=== PATIENT | male | born 1950 | race Caucasian/White ===

== ENCOUNTER → 2016-10-22 | Outpatient (CLI) | payer BC, OTHER ==
[2016-10-22 18:29] LABS: Anisocytosis Moderate; CH 27.1; CHCM 29.9; HCT 40.6 % (39.0-53.0); HDW 2.91; HGB 12.2 gm/dL (13.0-17.5); Hypochromasia Marked; MCH 27.5 pg (25.0-35.0); MCHC 30.1 g/dL (31.0-37.0); Mean Platelet Volume 7.3; Microcytosis Slight; RBC 4.46 m/uL (4.30-5.90); RDW 22.4 % (11.5-15.5); WBC 6.5 k/uL (3.8-10.6)
[2016-10-22 18:40] LABS: MCV 91.2 fL (80.0-100.0)
[2016-10-22 18:48] LABS: Anion Gap 9 mmol/L; Blood Urea Nitrogen 14 mg/dL (9-20); Calcium 9.1 mg/dL (8.4-10.2); Carbon Dioxide 24 mmol/L (22-30); Chloride 107 mmol/L (98-107); Glucose 97 mg/dL (74-99); Non-African American GFR(MDRD) >60 (>60 ml/min/1.73 sqM); Potassium 4.3 mmol/L (3.5-5.1); Sodium 140 mmol/L (137-145)
== END | disposition home or self-care (01) ==
LOC: LABWHC1 17:11
PROVIDERS: ATTEND Internal Medicine Interventional Cardiology
DX: I25.10 Atherosclerotic heart disease of native coronary artery without angina pectoris (principal); D64.9 Anemia, unspecified
CPT/HCPCS: 36415; 80048; 85027

== ENCOUNTER 2016-11-04 06:27 | Day surgery (SDC) | payer BC, OTHER ==
[2016-10-30 16:04] VITALS: BMI 27.9
[2016-11-04] MEDS ORDERED: NITROGLYCERIN SL TABS 0.4 MG TAB SUBLINGUAL PRN ×2 (06:47→14:56)
[2016-11-04] MEDS ORDERED: ALPRAZolam 0.25 MG TAB PO PRN (06:47)
[2016-11-04] MEDS ORDERED: ATORVASTATIN 80 MG TAB PO STA (06:47)
[2016-11-04] MEDS ORDERED: ASPIRIN 325 MG TAB PO STA (06:47)
[2016-11-04] MEDS ORDERED: SODIUM CHLORIDE 0.9% 1,000 ML in EMPTY BAG 1 BAG IV ONE (06:47)
[2016-11-04] MEDS ORDERED: ALPRAZolam 0.5 MG TAB PO PRN (06:47)
[2016-11-04] MEDS ORDERED: SODIUM CHLORIDE 0.9% (PF) 10 ML VIAL ONE (07:08)
[2016-11-04] MEDS ORDERED: LIDOCAINE 2% INJ 20 MG/ML (20 ML MDV) ONE (07:08)
[2016-11-04] MEDS ORDERED: VERAPAMIL 2.5 MG/ML 2 ML AMP ONE ×2 (07:08)
[2016-11-04] MEDS ORDERED: MIDAZOLAM 2 MG/2 ML VIAL ONE (07:29)
[2016-11-04] MEDS ORDERED: diphenhydrAMINE 50 MG/ML 1 ML VIAL ONE (07:29)
[2016-11-04] MEDS ORDERED: diphenhydrAMINE 50 MG/ML 1 ML VIAL IVP ONE (07:36)
[2016-11-04] MEDS ORDERED: MIDAZOLAM 2 MG/2 ML VIAL IVP ONE (07:36)
[2016-11-04] MEDS ORDERED: LIDOCAINE 2% INJ 20 MG/ML SQ ONE ×2 (07:39→13:00)
[2016-11-04] MEDS: VERAPAMIL SYRINGE (5 MG/10 ML) INTRAARTER ONE ×2 (07:43→08:29)
[2016-11-04] MEDS ORDERED: ATROPINE SULFATE 0.1 MG/ML 10ML SYRINGE IVP ONE (08:11)
[2016-11-04] MEDS ORDERED: IOHEXOL 350 MG/ML 100 ML BOTTLE INJ ONE (08:29)
[2016-11-04] MEDS ORDERED: SODIUM CHLORIDE 0.9% 500 ML IV ONE (08:30)
[2016-11-04] MEDS ORDERED: fentaNYL (PF) 50 MCG/ML 2 ML AMP ONE (09:35)
[2016-11-04] MEDS ORDERED: ceFAZolin 2 GM in SODIUM CHLORIDE 0.9% 100 ML IVPB STA (12:37)
[2016-11-04] MEDS ORDERED: ceFAZolin 1,000 MG in SODIUM CHLORIDE 0.9% IRRIGATIO 250 ML IRRIGATION ONE (12:37)
[2016-11-04] MEDS ORDERED: IV FLUID CONTINUATION 700 ML IV ONE (12:56)
[2016-11-04] MEDS: MIDAZOLAM 2 MG/2 ML VIAL IVP ONE ×2 (12:56→13:00)
[2016-11-04] MEDS ORDERED: IV FLUID CONTINUATION 250 ML IV ONE (12:56)
[2016-11-04] MEDS: fentaNYL (PF) 50 MCG/ML 2 ML AMP IV ONE ×2 (13:00→13:33)
[2016-11-04] MEDS: LIDOCAINE 2% INJ 20 MG/ML SQ ONE ×2 (13:05→13:32)
[2016-11-04] MEDS ORDERED: DOPamine DRIP 800 MG in DEXTROSE/WATER 1 500ML.BAG IV ONE (13:25)
[2016-11-04] MEDS ORDERED: ALBUTEROL NEBULIZED 2.5 MG/3 ML INHALATION PRN (14:56)
--- NOTE | 2016-11-04 15:51 | XR ---
EXAMINATION TYPE: XR chest 1V portable DATE OF EXAM: 11/04/2016 3:44 PM HISTORY: Post pacemaker insertion. REFERENCE: NONE. FINDINGS: There has been a midline sternotomy. Multiple metallic strands project over the lateral asp ect of the left chest superiorly. A bipolar pacemaker has been inserted via a left subclavian approach. The proximal lead overlies the right atrium and there is slightly overlies the right ventricle. There is no evidence of pneumothorax . The lungs appear clear. Pleural spaces are clear. Heart size is upper limits of normal. IMPRESSION: I DO NOT SEE A POSTPACEMAKER INSERTION COMPLICATION.
[2016-11-04] MEDS: FERROUS SULFATE 325 MG TAB PO SCH (17:44)
[2016-11-04] MEDS: SODIUM CHLORIDE 0.9% 1,000 ML IV SCH (17:44)
[2016-11-04] MEDS: ceFAZolin 2 GM in SODIUM CHLORIDE 0.9% 100 ML IVPB SCH (18:47)
[2016-11-04] MEDS ORDERED: NON-FORMULARY DRUG (Fish Oil/Dha/Epa [Fish Oil 1,200 Mg Fish Oil] 1 EACH) PO SCH (21:00)
[2016-11-04] MEDS ORDERED: LISINOPRIL 5 MG TAB PO SCH (21:00)
[2016-11-04] MEDS ORDERED: ATORVASTATIN 80 MG TAB PO SCH (21:00)
--- NOTE | 2016-11-04 21:14 | PCN ---
DATE OF PROCEDURE: 11/04/2016 PROCEDURE: Permanent pacemaker placement, left infraclavicular location. PERFORMED BY Dr. Frank Falk. CLINICAL INFORMATION: Mr. Jey Kingsley is a 66-year-old gentleman with a history of prior aortocoronary bypass surgery in 2004 with stenting of vein graft to the obtuse marginal on September 06 ( ). He was brought in for elective PCI of [place] circumflex, which was a heavily calcified vessel. I attempted from the right radial approach and checked the patency of the vein graft to the obtuse marginal. While the catheter was being manipulated in the ascending aorta, he developed asystole. He has underlying sick sinus syndrome on a very minimal dose of beta ronen. He has a right bundle with a first degree. He went into asystole, requiring to be paced externally, and also required a temporary pacemaker. This was placed in the right femoral approach. I abandoned the coronary intervention procedure, took the radial sheath out and applied a TR band with good hemostasis. Then he was brought in for a permanent pacemaker procedure a few hours later. PROCEDURE NOTE: Under local anesthesia and strict aseptic precautions, a 3-inch incision was made parallel and medial to the left deltopectoral grove. I attempted to gain access into the axillary artery, but I had difficulty. I requested Dr. Joaquin, who gained axis into the left axillary vein. A guidewire was kept in the right atrial location. A sheath was placed over this guidewire. I then advanced another guidewire next to the current one and took the sheath out and 2 separate sheaths were then advanced and positioned. A surgical pocket was made with blunt dissection and good hemostasis was secured. The pocket was soaked with antibiotic sponge. Patient also received IV antibiotic. Under fluoroscopic guidance I placed the ventricular lead at the right ventricular apical septal portion. Good thresholds and sensitivities were obtained. The atrial lead was then placed in the right atrium. Good thresholds and sensitivities were obtained. Both the leads were separately secured with 0 silk. Leads were then connected to the pulse generator and pulse generator was also secured. The wound was then closed in 2 layers. Excellent hemostasis was achieved. Patient tolerated the procedure well without complication. He will have a chest x-ray, then go to the room, and repeat chest x-ray in the morning will be performed. The details of the procedure and the results were discussed with the patient and family. PACEMAKER INFORMATION: Stenographer Secretary [employer] model Essentio DRIS 1, model L101, serial #[id number]. Right ventricular lead real estate valuer [employer] model Ingevity MRIIS 1 bipolar active lead 59 cm length, model #7742, serial #[id number], right ventricular septal location. Atrial lead real estate valuer [employer] model Ingevity MRI IS 1 bipolar active lead, 52 cm long, model #7741, serial #[id number], location in the right atrium. Right atrial threshold was 0.6 v and P-waves were 3.0 mV. Right ventricular threshold was 0.5 v at 0.5 ms and R-waves were 25 mV. The impedance in the right atrial lead was 745 ohms. The right ventricular lead impedance was 1340 ohms. The pacemaker settings were at a low rate of 55 and a high rate of 110 in a DDDR mode. Patient tolerated the procedure well without complications. He will have a chest x-ray prior to going to the room.
--- NOTE | 2016-11-04 21:17 | LTR ---
November 04, 2016 RE: Sancho Jey Eric Dear Dr. Bob, Thank you for the opportunity to participate in the care of Mr. Jey Kingsley. This gentleman underwent a cardiac catheterization this morning to check patency of the vein graft to the obtuse marginal. Subsequently, prior to intervention of the [place] circumflex, he developed asystole because of significant sick sinus syndrome and a conduction system disease in the AV node. He had a temporary pacemaker placed emergently. A couple of hours later I performed placement of a permanent pacemaker uneventfully. The radial catheter site is clean and dry. I will do the intervention at a later date. He was sent to the room in stable condition. Results were discussed with the patient and family. I expect he will be discharged tomorrow if he remains stable. Thank you for your referral. Please call with questions. Sincerely, JOYCE WHYTE MD
[2016-11-04] MEDS: METOPROLOL TARTRATE 12.5 MG TAB PO SCH (21:50)
[2016-11-04] MEDS: buPROPion SR 150 MG TABLET.ER PO SCH (21:50)
[2016-11-04] MEDS: GABAPENTIN 300 MG CAP PO SCH (21:50)
[2016-11-04] MEDS: ACETAMINOPHEN TAB 325 MG TAB PO PRN (23:39)
[2016-11-05] MEDS: ceFAZolin 2 GM in SODIUM CHLORIDE 0.9% 100 ML IVPB SCH ×3 (01:25→13:05)
[2016-11-05] MEDS: ACETAMINOPHEN TAB 325 MG TAB PO PRN (05:21)
[2016-11-05] MEDS: SODIUM CHLORIDE 0.9% 1,000 ML IV SCH (05:22)
--- NOTE | 2016-11-05 07:03 | CE ---
DATE OF SERVICE: 11/04/2016 PROCEDURE: 1. Transvenous temporary pacemaker from right femoral approach. 2. Coronary angiography. PERFORMED BY: Dr. Frank Falk. CLINICAL INFORMATION: Mr. Jey Kingsley is a of 66 years of age with aortocoronary bypass surgery in 2004. In August 2016, I performed stenting of the vein graft to the obtuse marginal with a good result. This was a very large graft. There was a lot of mismatch between the graft size and the [place] obtuse marginal. He was brought in for the procedure electively from right radial approach to mainly try and assess the patency of this vessel and also try and open the [place] circumflex in 2 areas which was heavily calcified vessel. PROCEDURE NOTE: Under strict aseptic precautions and local anesthesia, a 6-Liberian introduced was placed in the right radial artery. I used a right bypass guide catheter and performed selective coronary angiography of the vein graft to the circumflex marginal. This graft was widely patent. I then tried to use a standard left Lissett guide catheter and then a 4.5 L[place]ett guide catheter to cannulate the left coronary artery. While I was manipulating in the ascending aorta, the catheter went into the LV and then patient had asystole requiring to be paced with external pacer. He has a history of underlying sick sinus syndrome with tachybrady phenomenon, right bundle branch and first degree AV block. He was paced externally and I quickly in an emergent fashion from the right femoral approach placed a 6-Liberian introducer and then a 5-Liberian pacemaker was placed in the right ventricular apex with good capture. This sheath was sutured in. The radial sheath was taken out and TR band applied as per protocol. I explained to the patient that we will abandon the intervention and perform a permanent pacemaker in view of his asystole. He remained in a junctional rhythm and then went into a complete heart block and used the pacemaker for quite some time. The previously stented vein graft to the obtuse marginal was patent. I will perform intervention of his [place] circumflex at a later date. This was carefully explained to the patient and all the family members. He was sent to the extended stay unit to be brought back for a permanent pacemaker procedure after which I would take the temporary pacemaker out as well. This was explained to the patient in detail.
[2016-11-05 07:11] LABS: Anisocytosis Slight; CH 27.1; HCT 41.3 % (39.0-53.0); HDW 2.65; HGB 12.4 gm/dL (13.0-17.5); Hypochromasia Marked; MCH 27.3 pg (25.0-35.0); MCHC 30.1 g/dL (31.0-37.0); MCV 90.7 fL (80.0-100.0); Mean Platelet Volume 6.7; Microcytosis Slight; RBC 4.56 m/uL (4.30-5.90); RDW 19.7 % (11.5-15.5); WBC 8.8 k/uL (3.8-10.6)
[2016-11-05 07:29] LABS: Anion Gap 11 mmol/L; Blood Urea Nitrogen 19 mg/dL (9-20); Calcium 8.8 mg/dL (8.4-10.2); Carbon Dioxide 22 mmol/L (22-30); Chloride 107 mmol/L (98-107); Glucose 91 mg/dL (74-99); Non-African American GFR(MDRD) >60 (>60 ml/min/1.73 sqM); Potassium 4.3 mmol/L (3.5-5.1); Sodium 140 mmol/L (137-145)
[2016-11-05] MEDS: FERROUS SULFATE 325 MG TAB PO SCH (07:54)
[2016-11-05] MEDS: METOPROLOL TARTRATE 12.5 MG TAB PO SCH (08:23)
[2016-11-05] MEDS: GABAPENTIN 300 MG CAP PO SCH (08:23)
[2016-11-05] MEDS: buPROPion SR 150 MG TABLET.ER PO SCH (08:25)
[2016-11-05] MEDS ORDERED: ASPIRIN 81 MG CHEW PO SCH (09:00)
[2016-11-05] MEDS ORDERED: CLOPIDOGREL 75 MG TAB PO SCH (09:00)
[2016-11-05] MEDS ORDERED: DOCUSATE 100 MG CAP PO SCH (09:00)
[2016-11-05 09:15] VITALS: RESP 18; TEMP 97.1
--- NOTE | 2016-11-05 09:25 | XR ---
EXAMINATION TYPE: XR chest 2V DATE OF EXAM: 11/05/2016 6:33 AM COMPARISON: Chest x-ray from yesterday. HISTORY: Arrhythmia status post pacemaker evaluation TECHNIQUE: Frontal and lateral views of the chest are obtained. FINDINGS: Redemonstration of pacemaker with leads in right atrium and right ventricle confirmed on 2 views. Sternal wires and mediastinal clips are again seen. There is chronic parenchymal change withou t suspicious new focal air space opacity, pleural effusion, or pneumothorax seen bilaterally. The ca rdiac silhouette size is within normal limits. The osseous structures are intact. IMPRESSION: No evidence of complication or pneumothorax after pacemaker insertion. Dual lead pacemak er with leads projecting into right atrium and right ventricle is confirmed on two-view x-ray.
[2016-11-05 12:04] VITALS: BP 127/70; PULSE 50
[2016-11-06] MEDS ORDERED: METOPROLOL TARTRATE 12.5 MG TAB PO SCH (09:00)
--- NOTE | 2016-11-06 10:47 | DS ---
DATE OF ADMISSION: 11/04/2016 DATE OF DISCHARGE: 11/05/2016 DIAGNOSES: 1. Complete heart block. 2. Unstable angina. 3. Hypertension. 4. History of coronary artery disease with previous bypass surgery and PCI. 5. Paroxysmal atrial fibrillation. This gentleman was brought in initially for elective coronary angiography to assess patency of vein graft to the obtuse marginal and then performed stenting of [place] circumflex. I performed the procedure from the right radial approach. While we were manipulating the catheter to gain access to the left coronary artery, The catheter went into the LV and he had a complete heart block with a very long pause requiring external pacing. Promptly, transvenous temporary pacemaker was placed on the right femoral approach. Then patient stabilized very well. About a couple of hours later, I performed a permanent pacemaker from the left infraclavicular approach. Pacemaker leads had good threshold and sensing yesterday. This morning, the chest x-ray reveals that there is some movement of the atrial lead in the AP projection. However, the thresholds have slightly elevated at 1.8 to 1.9 mV at 0.5 ms. The sensing is good through the P waves of 2.5 to 3. Ventricular lead thresholds and sensitivities are excellent. Patient is predominantly atrial sense and ventricular pace on some occasions. He does have an underlying first-degree AV block and a right bundle branch block pattern. I contemplated repositioning the atrial lead but after some discussion and reviewing the chest x-ray, I felt that since he was pacing well in the atrium and he seems to have mostly AV block, we will not do an intervention now. He is also on aspirin and Plavix. The site is clean and dry with some tenderness around the site. Blood pressure today is 128/70, pulse rate is 60 per minute, intrinsic rhythm. S1, S2 heard normally. Short systolic murmur noted. Lungs are clear. Abdomen and lower extremity exam is unchanged. We will discharge the patient today. Pacemaker settings are at a low rate of 50, high rate of 110. I will see him in the office in one week. Discharge instructions regarding activity, diet and medications were given. He is advised not to do much activity with the left arm and he was given a sling. He will not do any stretching outward or reaching out with his left arm. Discharge instructions were given to the patient and . The possibility of requiring repositioning of the lead is something that may be necessary down the road was explained to both of them but for now, we will not do any intervention. He will be discharged today and I will see him in the office on 11/13/2016 at 9:15 a.m.
== END 2016-11-05 14:51 | disposition home or self-care (01) ==
LOC: CATHCVL 06:27 → 6SEL 14:46 → CATHCVL 11-05 14:51
PROVIDERS: ATTEND Internal Medicine Interventional Cardiology
DX: I44.2 Atrioventricular block, complete (principal); I49.5 Sick sinus syndrome; I25.110 Atherosclerotic heart disease of native coronary artery with unstable angina pectoris; I97.710 Intraoperative cardiac arrest during cardiac surgery; Y84.0 Cardiac catheterization as the cause of abnormal reaction of the patient, or of later complication, without mention of misadventure at the time of the procedure; Y71.3 Surgical instruments, materials and cardiovascular devices (including sutures) associated with adverse incidents; Y92.234 Operating room of hospital as the place of occurrence of the external cause; I45.10 Unspecified right bundle-branch block; I48.0 Paroxysmal atrial fibrillation; R01.1 Cardiac murmur, unspecified; Z95.5 Presence of coronary angioplasty implant and graft; Z95.1 Presence of aortocoronary bypass graft; E78.00 Pure hypercholesterolemia, unspecified; I10 Essential (primary) hypertension; E78.5 Hyperlipidemia, unspecified; Z79.01 Long term (current) use of anticoagulants; Z79.02 Long term (current) use of antithrombotics/antiplatelets; Z79.82 Long term (current) use of aspirin; Z79.899 Other long term (current) drug therapy; Z87.891 Personal history of nicotine dependence
CPT/HCPCS: 93459; 33208; 33210; 80048; 85027; 71010; 71020; C1769 ×4; C1887 ×2; C1894 ×2; C1785; C1898; J2001; J2250; J1200; Q9967; S0106 ×2; J0690 ×2; J0461; J1265; J3010

== ENCOUNTER → 2016-12-13 | Outpatient (CLI) | payer BC, OTHER ==
[2016-12-13 11:40] LABS: Basophils # (A) 0.1 k/uL (0-0.2); Basophils % (A) 1 %; CH 28.5; CHCM 30.8; Eosinophils # (A) 0.1 k/uL (0-0.7); Eosinophils % (A) 1 %; HCT 46.1 % (39.0-53.0); HDW 2.61; HGB 14.5 gm/dL (13.0-17.5); Hypochromasia Slight; Luc # (Auto) 0.27; Luc % (Auto) 3; Lymphocytes % (A) 26 %; MCH 29.1 pg (25.0-35.0); MCHC 31.4 g/dL (31.0-37.0); MCV 92.7 fL (80.0-100.0); Mean Platelet Volume 6.6; Monocytes # (A) 0.7 k/uL (0-1.0); Monocytes % (A) 9 %; Neutrophils # (A) 4.7 k/uL (1.3-7.7); Neutrophils % (A) 60 %; RBC 4.97 m/uL (4.30-5.90); RDW 15.8 % (11.5-15.5); WBC 7.8 k/uL (3.8-10.6); WBC (Perox) 8.05
[2016-12-13 11:51] LABS: Anion Gap 10 mmol/L; Blood Urea Nitrogen 11 mg/dL (9-20); Carbon Dioxide 26 mmol/L (22-30); Chloride 104 mmol/L (98-107); Non-African American GFR(MDRD) >60 (>60 ml/min/1.73 sqM); Potassium 4.5 mmol/L (3.5-5.1); Sodium 140 mmol/L (137-145)
== END | disposition home or self-care (01) ==
LOC: LABPAT 11:08
PROVIDERS: ATTEND Internal Medicine Interventional Cardiology
DX: Z01.812 Encounter for preprocedural laboratory examination (principal); I25.10 Atherosclerotic heart disease of native coronary artery without angina pectoris
CPT/HCPCS: 80051; 82565; 84520; 85025

== ENCOUNTER 2016-12-16 09:20 | Day surgery (SDC) | payer BC, OTHER ==
[~2016-12-16 09:20] MED LIST: ALPRAZolam 0.25 MG TAB PO PRN; ALPRAZolam 0.5 MG TAB PO PRN; ASPIRIN 325 MG TAB PO STA; ATORVASTATIN 80 MG TAB PO STA; NITROGLYCERIN SL TABS 0.4 MG TAB SUBLINGUAL PRN; SODIUM CHLORIDE 0.9% 1,000 ML in EMPTY BAG 1 BAG IV ONE
[2016-12-16] MEDS ORDERED: LIDOCAINE 2% INJ 20 MG/ML (20 ML MDV) ONE (10:54)
[2016-12-16] MEDS ORDERED: diphenhydrAMINE 50 MG/ML 1 ML VIAL ONE (11:05)
[2016-12-16] MEDS ORDERED: MIDAZOLAM 2 MG/2 ML VIAL ONE (11:05)
[2016-12-16] MEDS ORDERED: diphenhydrAMINE 50 MG/ML 1 ML VIAL IVP ONE (11:15)
[2016-12-16] MEDS: MIDAZOLAM 2 MG/2 ML VIAL IV ONE ×2 (11:15→11:17)
[2016-12-16] MEDS ORDERED: LIDOCAINE 2% INJ 20 MG/ML SQ ONE (11:18)
[2016-12-16] MEDS ORDERED: BIVALIRUDIN BOLUS 250 MG/50 ML IV ONE (11:33)
[2016-12-16] MEDS ORDERED: BIVALIRUDIN 250 MG in SODIUM CHLORIDE 0.9% 50 ML IV ONE (11:34)
[2016-12-16] MEDS ORDERED: CLOPIDOGREL 75 MG TAB ONE (12:13)
[2016-12-16] MEDS ORDERED: NITROGLYCERIN 1000MCG/10ML SYRINGE INTRACORON ONE (12:13)
[2016-12-16] MEDS ORDERED: CLOPIDOGREL 75 MG TAB PO ONE (12:15)
[2016-12-16] MEDS ORDERED: HYDROmorphone 2 MG/ML 1 ML SYRINGE ONE (12:20)
[2016-12-16] MEDS ORDERED: HYDROmorphone 2 MG/ML 1 ML SYRINGE IV ONE ×2 (12:21)
[2016-12-16] MEDS ORDERED: IOHEXOL 350 MG/ML 100 ML BOTTLE INJ ONE (12:26)
[2016-12-16] MEDS ORDERED: ATROPINE SULFATE 0.1 MG/ML 10ML SYRINGE IV PRN (12:42)
[2016-12-16] MEDS ORDERED: RX INFO: IV CONTRAST WAS GIVEN 1 EACH MISC MISCELLANE PRN (12:42)
[2016-12-16] MEDS ORDERED: NITROGLYCERIN SL TABS 0.4 MG TAB SUBLINGUAL PRN ×2 (12:42→15:01)
[2016-12-16] MEDS ORDERED: ZOLPIDEM 5 MG TAB PO PRN (12:42)
[2016-12-16] MEDS ORDERED: MAG HYDROX/AL HYDROX/SIMETH 30 ML CUP PO PRN (12:42)
[2016-12-16 13:01] VITALS: RESP 16
[2016-12-16] MEDS ORDERED: ALBUTEROL NEBULIZED 2.5 MG/3 ML INHALATION PRN (15:01)
[2016-12-16] MEDS: SODIUM CHLORIDE 0.9% 1,000 ML IV SCH (17:16)
[2016-12-16 18:26] VITALS: BMI 25.8
[2016-12-16] MEDS ORDERED: POLYETHYLENE GLYCOL 3350 17 GM POWD.PACK PO SCH (19:00)
[2016-12-16] MEDS: METOPROLOL TARTRATE 12.5 MG TAB PO SCH (20:08)
[2016-12-16] MEDS: FERROUS SULFATE 325 MG TAB PO SCH (20:11)
[2016-12-16] MEDS ORDERED: NON-FORMULARY DRUG (Fish Oil/Dha/Epa [Fish Oil 1,200 Mg Fish Oil] 1 EACH) PO SCH (21:00)
[2016-12-16] MEDS ORDERED: LISINOPRIL 5 MG TAB PO SCH (21:00)
[2016-12-16] MEDS: GABAPENTIN 300 MG CAP PO SCH (22:15)
[2016-12-17] MEDS: SODIUM CHLORIDE 0.9% 1,000 ML IV SCH (03:56)
--- NOTE | 2016-12-17 06:13 | PTCA ---
DATE OF SERVICE: 12/16/2016 PROCEDURE: PTCA and stenting of complex calcified ostial/proximal and mid circumflex coronary artery. PERFORMED BY: Dr. Frank Falk. CLINICAL INFORMATION: Mr. Jey Kingsley is a 66-year-old gentleman with a known history of coronary artery disease and previous aortocoronary bypass surgery. His bypass surgery was performed in 2004. In October, I brought him for the elective PCI of the ostial and mid circumflex but during the procedure he developed asystole because of a high-grade AV block. He is known to have a right bundle with first degree. Therefore, I did not perform percutaneous coronary intervention and instead used a temporary pacemaker and later on in the day performed a permanent pacemaker and after 4 weeks I am bringing him for elective PCI of circumflex vessel, which is his [place] circumflex. Risks, benefits, options and rationale were discussed with the patient and at length. PROCEDURE NOTE: Under local anesthesia and strict aseptic precautions, a 6-[place] introducer was placed in the right femoral artery. I used AR-2 catheter to perform selective injection of the vein graft to the PLV branch of circumflex to make this was widely patent. The vessel was widely patent with a brisk flow. There was a lot of mismatch in terms of this graft and the size of the graft and the vessel, but the flow was excellent. I then went ahead with the intervention of the circumflex. Initially I used a standard left guide catheter and with this I was able to advance the wire beyond the lesion and this was a BMW wire and I gave one dilatation to the ostium of the circumflex in the proximal portion with a 2.5 caliber, 12 mm long NC Trek balloon. However, the guide support was inadequate. I took the system out and I used an XB left 3.0 catheter. With this I was able to cannulate the left coronary artery and whisper wire was used and the wire was kept distally. Predilatation of the mid lesion was performed using a 2.5 caliber, 12 mm long NC Trek balloon. I then deployed an 8 mm 2.5 caliber stent in the mid lesion and proximal to it, another 2.5 caliber 8 mm Xience drug-eluting stent. Both these stents were deployed at 14 atmospheres. I then used a 2.75 caliber, 12 mm long Xience stent for the ostium and proximal portion of the circumflex. Patient did not have significant symptoms. He had subtle EKG changes. Excellent angiographic result was achieved. I gave him 150 mg of Plavix additionally. He was already on Plavix. Excellent angiographic results were achieved without complication and patient will be discharged tomorrow if he remains stable. However, after the procedure was performed I used a Perclose device but I had difficulty with Perclose and the suture actually broke even before I could advance it all the way to the superior aspect of the vessel. Therefore the hemostasis was inadequate. Manual compression and FemoStop will be applied. This was discussed with the patient and family. I expect he will be discharged tomorrow if he remains stable. We will watch him very closely for the next few hours for the right groin area. Excellent angiographic result without complications were achieved. Conscious sedation was provided for 1 hour and observed closely without any issues. DANIEL
[2016-12-17 06:17] LABS: Basophils % (A) 0 %; CH 28.3; CHCM 31.4; Eosinophils # (A) 0.1 k/uL (0-0.7); Eosinophils % (A) 1 %; HCT 40.8 % (39.0-53.0); HDW 2.57; HGB 12.9 gm/dL (13.0-17.5); Hypochromasia Slight; Luc # (Auto) 0.18; Luc % (Auto) 3; Lymphocytes # (A) 1.2 k/uL (1.0-4.8); Lymphocytes % (A) 20 %; MCH 28.5 pg (25.0-35.0); MCHC 31.5 g/dL (31.0-37.0); MCV 90.4 fL (80.0-100.0); Mean Platelet Volume 6.7; Monocytes # (A) 0.6 k/uL (0-1.0); Monocytes % (A) 10 %; Neutrophils # (A) 4.2 k/uL (1.3-7.7); Neutrophils % (A) 66 %; RBC 4.51 m/uL (4.30-5.90); RDW 15.4 % (11.5-15.5); WBC 6.3 k/uL (3.8-10.6); WBC (Perox) 6.89
--- NOTE | 2016-12-17 06:17 | LTR ---
December 16, 2016 ALICJA MONTES DO RE: Sancho Jey Eric Dear Dr. Montes: Thank you for the opportunity to participate in the care of Mr. Jey Kingsley. I am pleased to report to you that his previously dilated vein graft to the PLV was widely patent, the stented segment is widely patent. I performed now stenting of [place] circumflex ostium/proximal and midportion with 3 different drug-eluting stents. Excellent result was achieved. I expect he will be discharged tomorrow if he remains stable. We will be watching the groin closely and apply FemoStop to it. Thank you for your referral and please call for questions. With kindest regards. Sincerely, JOYCE WHYTE MD
[2016-12-17 06:25] LABS: Anion Gap 6 mmol/L; Blood Urea Nitrogen 12 mg/dL (9-20); Calcium 8.6 mg/dL (8.4-10.2); Carbon Dioxide 26 mmol/L (22-30); Chloride 105 mmol/L (98-107); Glucose 71 mg/dL (74-99); Non-African American GFR(MDRD) >60 (>60 ml/min/1.73 sqM); Potassium 4.4 mmol/L (3.5-5.1); Sodium 137 mmol/L (137-145)
[2016-12-17] MEDS ORDERED: CLOPIDOGREL 75 MG TAB PO SCH ×2 (09:00)
[2016-12-17] MEDS ORDERED: ASPIRIN 81 MG CHEW PO SCH ×2 (09:00)
[2016-12-17 09:01] VITALS: PULSE 58; TEMP 97.6
[2016-12-17] MEDS: GABAPENTIN 300 MG CAP PO SCH (09:08)
[2016-12-17] MEDS: FERROUS SULFATE 325 MG TAB PO SCH (09:08)
[2016-12-17] MEDS: METOPROLOL TARTRATE 12.5 MG TAB PO SCH (09:08)
[2016-12-17 11:29] VITALS: BP 105/67
[2016-12-17] MEDS ORDERED: ATORVASTATIN 80 MG TAB PO SCH (21:00)
--- NOTE | 2016-12-18 06:22 | DS ---
DATE OF ADMISSION: 12/16/2016 DATE OF DISCHARGE: 12/17/2016 DIAGNOSES: 1. Unstable angina. 2. Hypertension. 3. Paroxysmal atrial fibrillation. 4. Status post aortocoronary bypass surgery. PROCEDURES PERFORMED: PTCA and stenting of proximal and mid circumflex coronary artery with drug-eluting stents. Mr. Jey Kingsley is a 66-year-old gentleman who was brought in for elective PCI of circumflex. A month ago, he was brought in for the same procedure but developed a complete heart block and asystole and went on to have a permanent pacemaker placed. The pacemaker is working well and he was brought in for the procedure after 4 weeks. Patient's PTCA and stenting of circumflex was performed uneventfully with excellent angiographic result. His post PCI course was unremarkable. His right groin has a small area of ecchymosis. He is asymptomatic, resting comfortably without symptoms, appears to be in a sinus rhythm with backup paced beats that are seldom seen. Blood pressure is 118/70, pulse rate is 70 per minute. S1, S2 heard normally. Short systolic murmur noted. Lungs are clear. Abdomen and lower extremities exam unchanged. Right groin is clean and dry with a small area of ecchymosis. Pulse is good. EKG is unremarkable and laboratory data are unremarkable. Discharge instructions were given to the patient regarding medications, activity and diet. He will be discharged today and I will see him in the office in about 7 to 10 days. He will call me earlier if he has any question, concern or problem.
== END 2016-12-17 13:34 | disposition home or self-care (01) ==
LOC: CATHCVL 09:20 → 6SEL 12:22 → CATHCVL 12-17 13:34
PROVIDERS: ATTEND Internal Medicine Interventional Cardiology
DX: I25.110 Atherosclerotic heart disease of native coronary artery with unstable angina pectoris (principal); Z95.1 Presence of aortocoronary bypass graft; Z95.5 Presence of coronary angioplasty implant and graft; I10 Essential (primary) hypertension; I48.0 Paroxysmal atrial fibrillation; I45.10 Unspecified right bundle-branch block; E78.5 Hyperlipidemia, unspecified; I49.5 Sick sinus syndrome; E78.00 Pure hypercholesterolemia, unspecified; Z87.891 Personal history of nicotine dependence; I25.2 Old myocardial infarction; Z79.02 Long term (current) use of antithrombotics/antiplatelets; Z79.82 Long term (current) use of aspirin; Z79.899 Other long term (current) drug therapy
CPT/HCPCS: 93455; 80048; 85025; C9600; C1769 ×5; C1887; C1725; C1894; C1874; C1760; J2001; J2250; J1170; J1200; Q9967; J0583

== ENCOUNTER → 2017-02-13 | Outpatient (CLI) | payer BC ==
--- NOTE | 2017-02-13 10:50 | CT ---
EXAMINATION TYPE: CT angio chest DATE OF EXAM: 02/13/2017 10:42 AM COMPARISON: NONE HISTORY: Pulmonary Embolism CT DLP: 398 mGycm CONTRAST: CT chest with contrast and 3D reconstruction with MIP imaging is performed with IV Contrast, patient injected with 100 ml mL of Omnipaque 350. Contrast-enhanced CT of the chest was performed through the course of the pulmonary arteries with deven g and mediastinal window settings submitted. 3D reconstruction with MIP imaging was also performed. PULMONARY ARTERIES: The pulmonary arteries and their major tributaries are patent. I do not see geovanni dence for sizable filling defect to suggest pulmonary embolic process. LUNGS: Left basilar pleural thickening. Pleural-based density left lower lobe may reflect an area of infiltrate or atelectasis or mass is not excluded. Appropriate follow-up is advised. Mild upper lobe emphysematous change. MEDIASTINUM: Thoracic aorta is of normal caliber . The heart is mildly enlarged. Coronary artery antony cifications. No evidence for mediastinal mass. No mediastinal lymph nodes greater than 1cm. HILAR STRUCTURES: No evidence for mass. No hilar lymph nodes greater than 1 cm. UPPER ABDOMEN: No significant abnormality is seen. IMPRESSION: 1. No evidence for Pulmonary embolism at this time. 2.Left basilar pleural thickening. Pleural-based density left lower lobe may reflect an area of infil trate or atelectasis or mass is not excluded. Appropriate follow-up is advised.
== END ==
LOC: RADCTMAIN 09:53
PROVIDERS: ATTEND Internal Medicine Critical Care Medicine
DX: J92.9 Pleural plaque without asbestos (principal)
CPT/HCPCS: 71275; Q9967

== ENCOUNTER → 2017-03-12 | Outpatient (CLI) | payer BC ==
--- NOTE | 2017-03-12 11:37 | XR ---
EXAMINATION TYPE: XR chest 2V DATE OF EXAM: 03/12/2017 COMPARISON: 11/05/2016 INDICATION: Difficulty breathing TECHNIQUE: Frontal and lateral views of the chest are obtained. FINDINGS: The heart size is normal. The pulmonary vasculature is normal. The lungs are clear. Electronic device overlies left chest. The leads are stable in position from comparison of October 24. IMPRESSION: 1. No acute pulmonary process.
== END | disposition home or self-care (01) ==
LOC: RADXRMAIN 11:08
PROVIDERS: ATTEND Internal Medicine Interventional Cardiology
DX: I49.5 Sick sinus syndrome (principal)
CPT/HCPCS: 71020

== ENCOUNTER → 2018-07-07 | Outpatient (CLI) | payer BC ==
--- NOTE | 2018-07-08 06:42 | XR ---
EXAMINATION TYPE: XR chest 2V DATE OF EXAM: 07/07/2018 COMPARISON: CTA chest February 13, 2017. Most recent chest x-ray March 12, 2017. HISTORY: Arrhythmia assess pacemaker lead placement. TECHNIQUE: Frontal and lateral views of the chest are obtained. FINDINGS: Overlying sternal wires and mediastinal clips from CABG procedure are redemonstrated. Card iac silhouette size is stable and upper limits of normal with dual lead pacemaker redemonstrated, catrachito ds appear to terminate in right atrium and right ventricle, position stable and satisfactory. There i s background of chronic emphysematous change with persistent small left pleural effusion and/or pleur al thickening. No new suspicious focal airspace opacity or pneumothorax is noted. Osseous structures are intact. Epicardial pacer wires are redemonstrated on lateral view. IMPRESSION: Stable satisfactory positioning of dual lead pacemaker. Epicardial pacer wires redemonst rated. Chronic emphysematous change with stable small left pleural effusion and/or thickening.
== END ==
LOC: RADXRMAIN 16:11
PROVIDERS: ATTEND Internal Medicine
DX: Z48.812 Encounter for surgical aftercare following surgery on the circulatory system (principal); Z95.0 Presence of cardiac pacemaker
CPT/HCPCS: 71046

== ENCOUNTER 2018-07-19 11:21 | Inpatient (IN) | payer OTHER, BC, MEDICARE ==
--- NOTE | 2018-07-19 11:50 | ED ---
General Adult HPI - General Chief complaint: Chest Pain Stated complaint: Chest pain Time Seen by Provider: 07/19/18 11:39 Source: patient, RN notes reviewed, old records reviewed Mode of arrival: wheelchair Limitations: no limitations - History of Present Illness Initial comments: 67-year-old male history of CAD status post CABG, history of a 2 fibrillation and bradycardia status post pacemaker presenting with left-sided chest pain. Patient's pain began this morning around 1 AM which is 10 hours prior to arrival. He's had intermittent episodes of pain throughout the morning hours. He is taking nitroglycerin with only minimal relief of his pain. Describes the pain as sharp and stabbing in his left chest. Denies any radiating pain to his back. He is currently on Plavix and and Xarelto. Patient denies dyspnea. He does report a positional component to his pain. No pain in the arms or legs. No abdominal pain. No nausea vomiting. No cough. - Related Data Home Medications Medication Instructions Recorded Confirmed Gabapentin [Neurontin] 300 mg PO BID 10/08/14 12/16/16 Lisinopril [Zestril] 5 mg PO HS 10/08/14 12/16/16 Nitroglycerin Sl Tabs [Nitrostat] 0.4 mg SUBLINGUAL DIRECTED PRN 10/08/14 Albuterol Nebulized [Ventolin 2.5 mg INHALATION Q8H PRN 09/03/16 12/16/16 Nebulized] Ferrous Sulfate [Iron (65 MG 325 mg PO BID 09/03/16 12/16/16 Elemental)] buPROPion [Wellbutrin] 150 mg PO BID 09/06/16 12/16/16 Fish Oil/Dha/Epa [Fish Oil 1,200 1 each PO BID 10/30/16 12/16/16 mg Fish Oil] Metoprolol Tartrate [Lopressor] 6.25 mg PO DAILY PRN 10/30/16 12/16/16 Omeprazole 20 mg PO DAILY 10/30/16 12/16/16 Polyethylene Glycol 3350 [Miralax] 1 applicate PO 1900 10/30/16 12/16/16 Stool Softner 1 tab PO QAM 10/30/16 12/16/16 Previous Rx's Medication Instructions Recorded Aspirin 81 mg PO DAILY #90 chew 09/07/16 Atorvastatin [Lipitor] 80 mg PO HS #90 tab 09/07/16 Clopidogrel [Plavix] 75 mg PO DAILY #90 tab 09/07/16 Allergies Allergy/AdvReac Type Severity Reaction Status Date / Time No Known Allergies Allergy Verified 07/19/18 11:25 Review of Systems ROS Statement: Those systems with pertinent positive or pertinent negative responses have been documented in the HPI. ROS Other: All systems not noted in ROS Statement are negative. Past Medical History Past Medical History: Atrial Fibrillation, Coronary Artery Disease (CAD), COPD, GERD/Reflux, Osteoarthritis (OA), Pneumonia, Respiratory Disorder Additional Past Medical History / Comment(s): small hiatal hernia, hx anemia, ventral hernia, lumbar disk disorder, History of Any Multi-Drug Resistant Organisms: None Reported Past Surgical History: Coronary Bypass/CABG, Heart Catheterization, Heart Catheterization With Stent, Hernia Repair, Orthopedic Surgery, Pacemaker Additional Past Surgical History / Comment(s): Vasectomy 1995, CABG 2004, KELLY CATARACT, VASECTOMY, BONE INFUSION MIDDLE LT FINGER CRUSHING INJURY 1988, rt knee arthroscopy, [employer] pacemaker placed, 11/04/16, 3 stents to Circ 12/16/16 Past Anesthesia/Blood Transfusion Reactions: No Reported Reaction Date of Last Stent Placement:: 12/16/16 Type of Cardiac Device: Permanent Pacemaker Device Placement Date:: 11/04/16 Past Psychological History: No Psychological Hx Reported Smoking Status: Former smoker Past Alcohol Use History: Rare Past Drug Use History: None Reported - Past Family History Father Family Medical History: Cancer Additional Family Medical History / Comment(s): . Mother Family Medical History: Coronary Artery Disease (CAD) Additional Family Medical History / Comment(s): HEART PROBLEMS General Exam Limitations: no limitations General appearance: alert, in no apparent distress Head exam: Present: atraumatic, normocephalic Eye exam: Present: normal appearance, PERRL ENT exam: Present: normal exam Neck exam: Present: normal inspection. Absent: tenderness, meningismus Respiratory exam: Present: normal lung sounds bilaterally. Absent: respiratory distress, wheezes Cardiovascular Exam: Present: normal rhythm, bradycardia GI/Abdominal exam: Present: soft. Absent: distended, tenderness Extremities exam: Present: normal inspection, normal capillary refill. Absent: pedal edema Neurological exam: Present: alert, oriented X3. Absent: motor sensory deficit Psychiatric exam: Present: normal affect, normal mood Skin exam: Present: warm, dry, intact. Absent: cyanosis, diaphoretic Course Vital Signs 07/19/18 07/19/18 07/19/18 11:22 12:30 13:00 Temperature 98.2 F Pulse Rate 57 L 49 L Respiratory 18 Rate Blood Pressure 147/86 143/81 142/93 O2 Sat by Pulse 96 97 Oximetry EKG Findings - EKG Comments: EKG Findings:: EKG: Electronic atrial pacemaker, right bundle branch block, rate of 53, ND interval 132, QRS duration 156, QTC [address] segment changes Medical Decision Making - Medical Decision Making 67-year-old male presenting with 7 hours of chest pain. Chest pain has described is atypical, does have a pleuritic component. Patient is anticoagulated. No dyspnea, stable vitals in the emergency department, no concern at this time for PE. Patient does have significant coronary artery history including bypass, and stenting. Initial workup in the emergency Department is negative, normal CBC, normal CMP, negative troponin. Patient will be kept in observation for serial cardiac enzymes, telemetry, and cardiology evaluation. - Lab Data Result diagrams: 07/19/18 11:39 07/19/18 11:39 Lab Results 07/19/18 07/19/18 07/19/18 Range/Units 11:39 11:39 11:39 WBC 9.3 (3.8-10.6) k/uL RBC 5.13 (4.30-5.90) m/uL Hgb 15.5 (13.0-17.5) gm/dL Hct 47.7 (39.0-53.0) % MCV 93.1 (80.0-100.0) fL MCH 30.1 (25.0-35.0) pg MCHC 32.4 (31.0-37.0) g/dL RDW 13.2 (11.5-15.5) % Plt Count 235 (150-450) k/uL Neutrophils % 68 % Lymphocytes % 19 % Monocytes % 9 % Eosinophils % 1 % Basophils % 1 % Neutrophils # 6.4 (1.3-7.7) k/uL Lymphocytes # 1.8 (1.0-4.8) k/uL Monocytes # 0.9 (0-1.0) k/uL Eosinophils # 0.1 (0-0.7) k/uL Basophils # 0.1 (0-0.2) k/uL PT (9.0-12.0) sec INR (<1.2) APTT (22.0-30.0) sec Sodium 139 (137-145) mmol/L Potassium 4.5 (3.5-5.1) mmol/L Chloride 109 H (98-107) mmol/L Carbon Dioxide 23 (22-30) mmol/L Anion Gap 7 mmol/L BUN 11 (9-20) mg/dL Creatinine 0.86 (0.66-1.25) mg/dL Est GFR (CKD-EPI)AfAm >90 (>60 ml/min/1.73 sqM) Est GFR (CKD-EPI)NonAf >90 (>60 ml/min/1.73 sqM) Glucose 96 (74-99) mg/dL Calcium 9.1 (8.4-10.2) mg/dL Magnesium 2.0 (1.6-2.3) mg/dL Total Bilirubin 0.3 (0.2-1.3) mg/dL AST 26 (17-59) U/L ALT 39 (21-72) U/L Alkaline Phosphatase 87 (38-126) U/L Total Creatine Kinase 30 L (55-170) U/L CK-MB (CK-2) 0.9 (0.0-2.4) ng/mL CK-MB (CK-2) Rel Index 3.0 Troponin I <0.012 (0.000-0.034) ng/mL NT-Pro-B Natriuret Pep pg/mL Total Protein 6.1 L (6.3-8.2) g/dL Albumin 3.5 (3.5-5.0) g/dL 07/19/18 07/19/18 Range/Units 11:39 11:39 WBC (3.8-10.6) k/uL RBC (4.30-5.90) m/uL Hgb (13.0-17.5) gm/dL Hct (39.0-53.0) % MCV (80.0-100.0) fL MCH (25.0-35.0) pg MCHC (31.0-37.0) g/dL RDW (11.5-15.5) % Plt Count (150-450) k/uL Neutrophils % % Lymphocytes % % Monocytes % % Eosinophils % % Basophils % % Neutrophils # (1.3-7.7) k/uL Lymphocytes # (1.0-4.8) k/uL Monocytes # (0-1.0) k/uL Eosinophils # (0-0.7) k/uL Basophils # (0-0.2) k/uL PT 10.4 (9.0-12.0) sec INR 1.1 (<1.2) APTT 25.6 (22.0-30.0) sec Sodium (137-145) mmol/L Potassium (3.5-5.1) mmol/L Chloride (98-107) mmol/L Carbon Dioxide (22-30) mmol/L Anion Gap mmol/L BUN (9-20) mg/dL Creatinine (0.66-1.25) mg/dL Est GFR (CKD-EPI)AfAm (>60 ml/min/1.73 sqM) Est GFR (CKD-EPI)NonAf (>60 ml/min/1.73 sqM) Glucose (74-99) mg/dL Calcium (8.4-10.2) mg/dL Magnesium (1.6-2.3) mg/dL Total Bilirubin (0.2-1.3) mg/dL AST (17-59) U/L ALT (21-72) U/L Alkaline Phosphatase (38-126) U/L Total Creatine Kinase (55-170) U/L CK-MB (CK-2) (0.0-2.4) ng/mL CK-MB (CK-2) Rel Index Troponin I (0.000-0.034) ng/mL NT-Pro-B Natriuret Pep 274 pg/mL Total Protein (6.3-8.2) g/dL Albumin (3.5-5.0) g/dL Disposition Clinical Impression: Chest pain Disposition: ADMITTED IP TO THIS HOSP Condition: Stable Is patient prescribed a controlled substance at d/c from ED?: No Referrals: Emilia Bob DO [Primary Care Provider] - 1-2 days Decision to Admit Reason: Admit from EC Decision Date: 07/19/18 Decision Time: 14:35
[2018-07-19 12:10] LABS: Basophils # (A) 0.1 k/uL (0-0.2); Basophils % (A) 1 %; Eosinophils # (A) 0.1 k/uL (0-0.7); Eosinophils % (A) 1 %; HCT 47.7 % (39.0-53.0); HGB 15.5 gm/dL (13.0-17.5); Lymphocytes # (A) 1.8 k/uL (1.0-4.8); Lymphocytes % (A) 19 %; MCH 30.1 pg (25.0-35.0); MCHC 32.4 g/dL (31.0-37.0); MCV 93.1 fL (80.0-100.0); Monocytes # (A) 0.9 k/uL (0-1.0); Monocytes % (A) 9 %; Neutrophils # (A) 6.4 k/uL (1.3-7.7); Neutrophils % (A) 68 %; Platelet Count 235 k/uL (150-450); RBC 5.13 m/uL (4.30-5.90); RDW 13.2 % (11.5-15.5); WBC 9.3 k/uL (3.8-10.6)
[2018-07-19 12:19] LABS: ALT 39 U/L (21-72); AST 26 U/L (17-59); Albumin 3.5 g/dL (3.5-5.0); Alkaline Phosphatase 87 U/L (38-126); Anion Gap 7 mmol/L; Blood Urea Nitrogen 11 mg/dL (9-20); Calcium 9.1 mg/dL (8.4-10.2); Carbon Dioxide 23 mmol/L (22-30); Chloride 109 mmol/L (98-107); Glucose 96 mg/dL (74-99); Potassium 4.5 mmol/L (3.5-5.1); Sodium 139 mmol/L (137-145); Total Bilirubin 0.3 mg/dL (0.2-1.3); Total Protein 6.1 g/dL (6.3-8.2)
[2018-07-19 12:20] LABS: INR 1.1 (<1.2); Partial Thromboplastin Time 25.6 sec (22.0-30.0); Prothrombin Time 10.4 sec (9.0-12.0)
[2018-07-19 12:38] LABS: Creatine Kinase 30 U/L (55-170)
[2018-07-19 12:50] LABS: Creatine Kinase MB 0.9 ng/mL (0.0-2.4); Troponin I <0.012 ng/mL (0.000-0.034)
--- NOTE | 2018-07-19 13:07 | XR ---
EXAMINATION TYPE: XR chest 2V DATE OF EXAM: 07/19/2018 HISTORY: Chest Pain. REFERENCE: Previous study dated 07/07/2018. FINDINGS: There has been a midline sternotomy. Epicardial pacing leads are in place. There is a bipol ar pacemaker place on the left. Heart size upper limits of normal. The lungs are clear. Pleural spaces are clear. IMPRESSION: BORDERLINE CARDIOMEGALY.
[2018-07-19] MEDS ORDERED: NALOXONE 0.4 MG/ML 1 ML VIAL IV PRN (14:26)
[2018-07-19] MEDS ORDERED: METOPROLOL TARTRATE 12.5 MG TAB PO PRN (14:27)
[2018-07-19] MEDS ORDERED: NITROGLYCERIN SL TABS 0.4 MG TAB SUBLINGUAL PRN (14:27)
[2018-07-19] MEDS ORDERED: ASPIRIN 325 MG TAB PO STA (14:29)
[2018-07-19] MEDS: RIVAROXABAN 15 MG TAB PO SCH (18:10)
[2018-07-19 19:22] LABS: Creatine Kinase 22 U/L (55-170)
[2018-07-19 19:35] LABS: Creatine Kinase MB 0.7 ng/mL (0.0-2.4); Troponin I <0.012 ng/mL (0.000-0.034)
[2018-07-19] MEDS: ATORVASTATIN 80 MG TAB PO SCH (21:39)
[2018-07-19] MEDS: LISINOPRIL 5 MG TAB PO SCH (21:39)
[2018-07-19] MEDS: GABAPENTIN 300 MG CAP PO SCH (21:39)
[2018-07-20] LABS: Creatine Kinase <20 U/L (55-170)
[2018-07-20 00:12] LABS: Creatine Kinase MB 0.6 ng/mL (0.0-2.4); Troponin I <0.012 ng/mL (0.000-0.034)
[2018-07-20] MEDS ORDERED: CAFFEINE CITRATE 60 MG/3 ML VIAL IV PRN (08:41)
[2018-07-20] MEDS ORDERED: REGADENOSON 0.4 MG/5 ML SYRINGE IV ONE (08:41)
[2018-07-20 10:33] VITALS: BMI 28.6
--- NOTE | 2018-07-20 11:44 | ECHOF ---
Referral Reason:cp MEASUREMENTS -------- HEIGHT: 165.1 cm WEIGHT: 78.0 kg BP: 106/71 IVSd: 1.1 cm (0.6 - 1.1) LVIDd: 5.2 cm (3.9 - 5.3) LVPWd: 1.1 cm (0.6 - 1.1) IVSs: 1.5 cm LVIDs: 3.6 cm LVPWs: 1.4 cm LAESV Index (A-L): 17.54 ml/m Ao Diam: 3.4 cm (2.0 - 3.7) AV Cusp: 1.8 cm (1.5 - 2.6) LA Diam: 3.0 cm (2.7 - 3.8) EPSS: 0.5 cm MV E Jose: 0.57 m/s MV DecT: 231 ms MV A Jose: 0.60 m/s MV E/A Ratio: 0.94 RAP: 5.00 mmHg RVSP: 30.90 mmHg MV EF SLOPE: 52.60 mm/s (70 - 150) MV EXCURSION: 1.56 cm (> 18.000) FINDINGS -------- Paced rhythm. This was a technically adequate study. The left ventricular size is normal. There is borderline concentric left ventricular hypertrophy. Overall left ventricular systolic function is mildly impaired with, an EF between 45 - 50 %. Infer ior Hypokinesis The right ventricle is normal in size and function. Normal LA size by volume 22+/-6 ml/m2. Electronic pacemaker lead seen in the right atrial cavity. RA appears enlarged. Aortic valve is trileaflet and is mildly thickened. Trace amount of aortic regurgitation. There is no evidence of aortic stenosis. The mitral valve leaflets are mildly thickened. There is trace to mild mitral regurgitation. Mild tricuspid regurgitation present. Right ventricular systolic pressure is normal at < 35 mmHg. There is no evidence of pulmonary hypertension. Trace/mild (physiologic) pulmonic regurgitation. The aortic root size is normal. IVC Not well visulized. There is no pericardial effusion. CONCLUSIONS -------- 1. Paced rhythm. 2. This was a technically adequate study. 3. The left ventricular size is normal. 4. There is borderline concentric left ventricular hypertrophy. 5. Overall left ventricular systolic function is mildly impaired with, an EF between 45 - 50 %. 6. Inferior Hypokinesis 7. Normal LA size by volume 22+/-6 ml/m2. 8. Electronic pacemaker lead seen in the right atrial cavity. 9. RA appears enlarged. 10. Aortic valve is trileaflet and is mildly thickened. 11. Trace amount of aortic regurgitation. 12. The mitral valve leaflets are mildly thickened. 13. There is trace to mild mitral regurgitation. 14. Mild tricuspid regurgitation present. 15. Right ventricular systolic pressure is normal at < 35 mmHg. 16. There is no evidence of pulmonary hypertension. 17. Trace/mild (physiologic) pulmonic regurgitation. 18. The aortic root size is normal. 19. IVC Not well visulized. 20. There is no pericardial effusion. [employer] SUPERVISOR: Thomas Davalos RDCS
--- NOTE | 2018-07-20 11:54 | P.CRDCN ---
History of Present Illness History of present illness: Mr. Kingsley is a pleasant 67-year-old male past medical history significant for coronary artery disease s/p bypass grafting 2004 and angioplasty of [place] circumflex. 09/06/2018 he underwent stenting of the SVG- OM 09/06/2018. In October 2017 he was brought in to undergo elective PCI of circumflex and went into asystole. He underwent permanent pacemaker implantation at that time and was brought back electively 11/2017 for PCI of circumflex artery. He also has paroxysmal atrial fibrillation on terminal block assembler anticoagulation. We have been asked to see him in consulation for chest pain. He states yesterday while sitting down in his living room he felt a hard and sharp pain in left precordial region. It radiated from center to thoracic region and lasted for 30 sec. There was radiation down his left arm and into the mid back/flank region. No associated symptoms such as shortness of breath, dizziness or palpitations. He took a SL nitro and the pain went away but it came back intermittently thorughout the day yesterday but not as intense. Since arriving in the hospital it has completely subsided. He saw Dr. Falk in the office 07/07 and was having atypical chest pain at that time. Adjustments were made to the threshold of his pacemaker and Dr. Falk recommended that if his pains persist he would do a stress test. EKG reveals sinus mechanism, paced rhythm and right bundle branch block pattern. Chest xray negative for an acute process. Laboratory data reviewed, hemoglobin 15.5, platelets 235, sodium 139, potassium 4.5, creatinine 0.86, magnesium 2.0, cardiac enzymes negative 3 and NT proBNP 274. Current cardiac medications include atorvastatin 80 mg daily, Plavix 75 mg daily , lisinopril 5 mg daily, Lopressor 25 mg at bedtime and 50 mg in the morning, Xarelto 15 mg daily. He also takes Wellbutrin, prednisone, Benadryl, Protonix, MiraLAX, given pending, ferrous sulfate and DuoNeb. At the time of my exam: CONSTITUTIONAL: Denies fever. Denies chills. EYES: Denies blurred vision. Denies vision changes. Denies eye pain. EARS, NOSE, MOUTH & THROAT: Denies headache. Denies sore throat. Denies ear pain. CARDIOVASCULAR: Denies chest pain. Denies shortness of breath. Denies orthopnea. Denies PND. Denies palpitations. RESPIRATORY: Denies cough. GASTROINTESTINAL: Denies abdominal pain. Denies diarrhea. Denies constipation. Denies nausea. Denies vomiting. MUSCULOSKELETAL: Denies myalgias. INTEGUMENTARY: Denies pruitis. Denies rash. NEUROLOGIC: Denies numbness. Denies tingling. Denies weakness. PSYCHIATRIC: Denies anxiety. Denies depression. ENDOCRINE: Denies fatigue. Denies weight change. Denies polydipsia. Denies polyurina. GENITOURINARY: Denies burning, hematuria or urgency with micturation. HEMATOLOGIC: Denies history of anemia. Denies bleeding. Blood pressure 171/86 heart rate 75 afebrile maintaining oxygen saturation on room air GENERAL: This is a 67-year-old male in no apparent distress at the time of my examination. HEENT: Head is atraumatic, normocephalic. Pupils are equal, round. Sclerae anicteric. Conjunctivae are clear. Mucous membranes of the mouth are moist. Neck is supple. There is no jugular venous distention. No carotid bruit is heard. LUNGS: Clear to auscultation no wheezes, rales or rhonchi. No chest wall tenderness is noted on palpation or with deep breathing. HEART: Regular rate and rhythm without murmurs, rubs or gallops. S1 and S2 heard. ABDOMEN: Soft, nontender. Bowel sounds are heard. No organomegaly noted. EXTREMITIES: No evidence of peripheral edema and no calf tenderness noted. VASCULAR: Radial and dorsalis pedis pulses palpated, no evidence of clubbing. NEUROLOGIC: Patient is awake, alert and oriented x3. ASSESSMENT Chest pain, atypical. An acute coronary event has been ruled out. History of coronary artery disease status post bypass grafting and recent angioplasty. Currently maintained on dual antiplatelet therapy. Hypertension Dyslipidemia Permanent pacemaker implantation Former nicotine dependence, quit 2016. COPD Paroxysmal atrial fibrillation on long-term anticoagulation. Currently maintaining sinus mechanism PLAN An acute coronary event has been ruled out. Obtain 2-D echocardiogram and Doppler study to assess cardiac structure and function. Perform Lexiscan stress test to assess for reversible cardiac ischemia. If abnormal we will consider coronary angiography. Resume home medications except xarelto in case he require catheterization. If stress test is normal he is stable from a cardiac perspective. Follow up with Dr. Falk in 2 weeks. Thank you kindly for this consultation. Nurse Practitioner note has been reviewed, I agree with a documented findings and plan of care. Patient was seen and examined. Past Medical History Past Medical History: Atrial Fibrillation, Coronary Artery Disease (CAD), COPD, GERD/Reflux, Osteoarthritis (OA), Pneumonia, Respiratory Disorder Additional Past Medical History / Comment(s): small hiatal hernia, hx anemia, ventral hernia, lumbar disk disorder, History of Any Multi-Drug Resistant Organisms: None Reported Past Surgical History: Coronary Bypass/CABG, Heart Catheterization, Heart Catheterization With Stent, Hernia Repair, Orthopedic Surgery, Pacemaker Additional Past Surgical History / Comment(s): Vasectomy 1995, CABG 2004, KELLY CATARACT, VASECTOMY, BONE INFUSION MIDDLE LT FINGER CRUSHING INJURY 1988, rt knee arthroscopy, [employer] pacemaker placed, 11/04/16, 3 stents to Circ 12/16/16 Past Anesthesia/Blood Transfusion Reactions: No Reported Reaction Date of Last Stent Placement:: 12/16/16 Type of Cardiac Device: Permanent Pacemaker Device Placement Date:: 11/04/16 Past Psychological History: No Psychological Hx Reported Smoking Status: Former smoker Past Alcohol Use History: Rare Past Drug Use History: None Reported - Past Family History Father Family Medical History: Cancer Additional Family Medical History / Comment(s): . Mother Family Medical History: Coronary Artery Disease (CAD) Additional Family Medical History / Comment(s): HEART PROBLEMS Medications and Allergies Home Medications Medication Instructions Recorded Confirmed Type Gabapentin [Neurontin] 300 mg PO BID 10/08/14 07/19/18 History Lisinopril [Zestril] 5 mg PO DAILY 10/08/14 07/19/18 History Nitroglycerin Sl Tabs [Nitrostat] 0.4 mg SUBLINGUAL Q5M PRN 10/08/14 07/19/18 History Ferrous Sulfate [Iron (65 MG 325 mg PO BID 09/03/16 07/19/18 History Elemental)] Atorvastatin [Lipitor] 80 mg PO HS #90 tab 09/07/16 07/19/18 Rx Clopidogrel [Plavix] 75 mg PO DAILY #90 tab 09/07/16 07/19/18 Rx Omeprazole 20 mg PO DAILY 10/30/16 07/19/18 History Polyethylene Glycol 3350 [Miralax] 17 gm PO HS PRN 10/30/16 07/19/18 History Acetaminophen Tab [Tylenol Tab] 650 mg PO Q6H PRN 07/19/18 07/19/18 History Albuterol Inhaler [Ventolin Hfa 1 - 2 puff INHALATION RT-BID PRN 07/19/18 History Inhaler] Budesonide/Formoterol Fumarate 2 puff INHALATION RT-BID 07/19/18 07/19/18 History [Symbicort 160-4.5 Mcg Inhaler] Docusate [Colace] 100 mg PO DAILY 07/19/18 07/19/18 History Ipratropium-Albuterol Nebulize 3 ml INHALATION RT-QID PRN 07/19/18 07/19/18 History [Duoneb 0.5 mg-3 mg/3 ml Soln] L.acidoph,Paracasei, B.lactis 1 cap PO DAILY 07/19/18 07/19/18 History [Probiotic] Metoprolol Tartrate [Lopressor] 25 mg PO HS 07/19/18 07/19/18 History Metoprolol Tartrate [Lopressor] 50 mg PO QAM 07/19/18 07/19/18 History Pantoprazole Sodium [Protonix] 40 mg PO DAILY 07/19/18 07/19/18 History Rivaroxaban [Xarelto] 15 mg PO HS 07/19/18 07/19/18 History buPROPion HCL [Wellbutrin SR] 150 mg PO BID 07/19/18 07/19/18 History diphenhydrAMINE HCL [Benadryl] 25 - 50 mg PO Q6H PRN 07/19/18 07/19/18 History predniSONE 5 mg PO DAILY 07/19/18 07/19/18 History Allergies Allergy/AdvReac Type Severity Reaction Status Date / Time ibuprofen [From Motrin IB] AdvReac Unknown Verified 07/19/18 14:39 Physical Exam Vitals: Vital Signs Temp Pulse Resp BP Pulse Ox 07/20/18 07:00 49 L 16 110/69 96 07/20/18 06:30 54 L 14 122/78 95 07/20/18 06:00 54 L 16 119/75 96 07/20/18 05:30 60 14 110/74 07/20/18 05:00 57 L 111/68 07/20/18 04:00 52 L 14 115/66 95 07/20/18 03:30 52 L 16 119/67 48 L 07/20/18 03:00 50 L 14 109/66 95 07/20/18 02:00 50 L 128/76 95 07/20/18 01:30 56 L 113/68 40 L 07/20/18 01:00 50 L 117/68 96 07/20/18 00:00 64 16 112/70 96 07/19/18 23:30 51 L 16 120/60 93 L 07/19/18 23:00 54 L 117/74 96 07/19/18 22:00 51 L 16 97/73 98 07/19/18 21:30 50 L 18 109/89 98 07/19/18 21:00 50 L 18 134/115 97 07/19/18 20:30 50 L 16 115/71 98 07/19/18 20:00 50 L 16 101/74 95 07/19/18 19:30 53 L 16 107/69 98 07/19/18 19:00 51 L 16 109/71 99 07/19/18 16:00 49 L 110/70 98 07/19/18 15:30 52 L 108/67 99 07/19/18 15:00 49 L 96/70 97 07/19/18 14:30 49 L 108/64 98 07/19/18 14:00 51 L 113/73 97 07/19/18 13:30 50 L 118/81 97 07/19/18 13:00 142/93 07/19/18 12:30 49 L 143/81 97 07/19/18 11:22 98.2 F 57 L 18 147/86 96 Results 07/19/18 11:39 07/19/18 11:39 Cardiac Enzymes 07/19/18 07/19/18 07/19/18 Range/Units 11:39 11:39 18:43 AST 26 (17-59) U/L CK-MB (CK-2) 0.9 0.7 (0.0-2.4) ng/mL Troponin I <0.012 <0.012 (0.000-0.034) ng/mL 07/19/18 Range/Units 23:26 AST (17-59) U/L CK-MB (CK-2) 0.6 (0.0-2.4) ng/mL Troponin I <0.012 (0.000-0.034) ng/mL Coagulation 07/19/18 Range/Units 11:39 PT 10.4 (9.0-12.0) sec APTT 25.6 (22.0-30.0) sec CBC 07/19/18 Range/Units 11:39 WBC 9.3 (3.8-10.6) k/uL RBC 5.13 (4.30-5.90) m/uL Hgb 15.5 (13.0-17.5) gm/dL Hct 47.7 (39.0-53.0) % Plt Count 235 (150-450) k/uL Comprehensive Metabolic Panel 07/19/18 Range/Units 11:39 Sodium 139 (137-145) mmol/L Potassium 4.5 (3.5-5.1) mmol/L Chloride 109 H (98-107) mmol/L Carbon Dioxide 23 (22-30) mmol/L BUN 11 (9-20) mg/dL Creatinine 0.86 (0.66-1.25) mg/dL Glucose 96 (74-99) mg/dL Calcium 9.1 (8.4-10.2) mg/dL AST 26 (17-59) U/L ALT 39 (21-72) U/L Alkaline Phosphatase 87 (38-126) U/L Total Protein 6.1 L (6.3-8.2) g/dL Albumin 3.5 (3.5-5.0) g/dL Current Medications Generic Name Dose Route Start Last Admin Trade Name Freq PRN Reason Stop Dose Admin Aspirin 81 mg 07/20/18 09:00 Aspirin PO DAILY [facility] Atorvastatin Calcium 80 mg 07/19/18 21:00 07/19/18 21:39 Lipitor PO 80 mg HS RODNEY Administration Clopidogrel Bisulfate 75 mg 07/20/18 09:00 Plavix PO DAILY RODNEY Gabapentin 300 mg 07/19/18 21:00 07/19/18 21:39 Neurontin PO 300 mg BID RODNEY Administration Lisinopril 5 mg 07/19/18 21:00 07/19/18 21:39 Zestril PO 5 mg HS RODNEY Administration Naloxone HCl 0.2 mg 07/19/18 14:26 Narcan IV Q2M PRN Opioid Reversal Nitroglycerin 0.4 mg 07/19/18 14:27 Nitrostat SUBLINGUAL DIRECTED PRN Pain Rivaroxaban 15 mg 07/19/18 17:30 07/19/18 18:10 Xarelto PO 15 mg W/SUPPER RODNEY Administration 07/19/18 11:39 07/19/18 11:39
--- NOTE | 2018-07-20 13:21 | NM ---
EXAMINATION TYPE: NM stress lexiscan cardiolite DATE OF EXAM: 07/20/2018 COMPARISON: NONE HISTORY: Precordial chest pain and abnormal EKG TECHNIQUE: After the intravenous administration of 10.3 mCi Tc 99m Sestamibi - Cardiolite resting SP ECT images acquired 45 minutes post injection. The patient received 0.4mg Lexiscan, 25.5 mCi Tc 99m Sestamibi - Stress images obtained [address] injection FINDINGS: Review of stress and rest SPECT images demonstrates decreased perfusion on stress images involving th e anterolateral wall. Stress-induced ischemia is not excluded. Gated analysis shows normal wall motio n with an estimated left ventricular ejection fraction of 50 %. IMPRESSION: decreased perfusion on stress images involving the anterolateral wall. Stress-induced ischemia is no t excluded.
[2018-07-20] MEDS: GABAPENTIN 300 MG CAP PO SCH ×2 (15:41→20:32)
[2018-07-20] MEDS: METOPROLOL TARTRATE 50 MG TAB PO SCH (16:14)
[2018-07-20] MEDS: ISOSORBIDE MONONITRATE ER 30 MG TAB.ER.24H PO SCH (16:14)
[2018-07-20] MEDS: CLOPIDOGREL 75 MG TAB PO SCH (16:14)
[2018-07-20] MEDS: ASPIRIN 81 MG PO SCH (16:14)
--- NOTE | 2018-07-20 16:57 | HP ---
HISTORY AND PHYSICAL DATE OF ADMISSION: 07/19/2018 DATE OF SERVICE: 07/20/2018 PRESENTING COMPLAINT: Chest pain. HISTORY OF PRESENTING COMPLAINT: This is a very pleasant 67-year-old patient of Dr. Emilia Bob. Patient's chronic stable medical conditions include atrial fibrillation, COPD, GERD. The patient has known coronary artery disease; in November of 2016 he had stents placed by Dr. Frank Falk. The patient also has atrial fibrillation, for which he takes Xarelto. The patient yesterday was sitting down when he noticed left chest heaviness and became short of breath. The pain did go down his left arm and he did break out in a sweat. The symptoms were present off and on and patient decided to come in. He was admitted for unstable angina. Patient's troponin was negative. Given the presentation, Cardiology was consulted and stress test was ordered. The patient has been having symptoms off and on. The patient's is present. REVIEW OF SYSTEMS: CONSTITUTIONAL: None. HEENT: None. RESPIRATORY: As above. CARDIOVASCULAR: As above. GASTROINTESTINAL: Heartburn. GENITOURINARY: None. MUSCULOSKELETAL: Some pain in the lumbar joint. DERMATOLOGICAL: None. HEMATOLOGICAL: None. LYMPHATICS: None. PSYCHIATRY: None. NEUROLOGICAL: None. PAST MEDICAL HISTORY: 1. Atrial fibrillation. 2. Coronary artery disease. 3. COPD. 4. GERD. 5. Osteoarthritis. 6. Ventral hernia. 7. Lumbar disc disorder. PAST SURGICAL HISTORY: 1. Coronary artery bypass. 2. Cardiac cath with stent. 3. Hernia repair. 4. Vasectomy in . 5. Coronary artery bypass in 2004. 6. Bilateral cataracts. 7. Right knee arthroscopy. 8. [employer] pacemaker placed. 9. Three stents to the circumflex in November of 2016. SOCIAL HISTORY: The patient quit smoking in March of 2016; smoked for close to 48 years. Alcohol rarely. 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 Lives with significant other. FAMILY HISTORY: Cancer. HOME MEDICATIONS: 1. Prednisone 5 mg p.o. daily. 2. Benadryl 25 to 50 mg q.6 p.r.n. 3. Wellbutrin SR 150 mg b.i.d. 4. Xarelto 50 mg at bedtime. 5. MiraLAX 17 grams p.o. at bedtime p.r.n. 6. Protonix 40 mg a day. 7. Omeprazole 20 mg a day. 8. Nitrostat 0.4 sublingually q.5 p.r.n. 9. Lopressor 50 mg in the morning, 25 mg in the evening. 10.Zestril 5 mg a day. 11.Probiotic 1 capsule p.o. daily. 12.DuoNeb q.i.d. p.r.n. 13.Neurontin 300 mg p.o. b.i.d. 14.Iron. 15.Colace 100 mg p.o. daily. 16.Plavix 75 mg a day. 17.Symbicort 160/4.5 two puffs b.i.d. 18.Lipitor 80 mg at bedtime. 19.Ventolin HFA 1 or 2 puffs b.i.d. p.r.n. ALLERGIES: IBUPROFEN. PHYSICAL EXAMINATION: VITAL SIGNS ON PRESENTATION: Temperature 98.2, pulse 57, respiration 18, blood pressure 147/86, pulse ox 96% on room air. GENERAL APPEARANCE: Average build. Lying in bed, comfortable. EYES: Pupils equal. Conjunctivae normal. HEENT: External appearance of nose and ears normal. Oral cavity normal. NECK: JVD not raised. Mass not palpable. RESPIRATORY: Effort normal. LUNGS: Slightly decreased breath sounds. CARDIOVASCULAR: First and second sounds normal. No edema. ABDOMEN: Soft, non-tender. Liver and spleen not palpable. LYMPHATIC: No lymph node palpable in neck or axillae. PSYCHIATRY: Alert and oriented x3. Mood and affect normal. NEUROLOGICAL: Pupils equal. Cranial nerves grossly intact. Power and sensation grossly intact. INVESTIGATIONS: White count 9.3, hemoglobin 15.5, potassium 4.5. BUN and creatinine are normal. Troponin x3 negative. Nuclear stress test showing decreased perfusion to stress images involving the anterolateral wall. EKG tracing, personally reviewed by me, shows right bundle branch making a pacemaker rhythm. Chest x-ray film, personally reviewed by me, shows some venous prominence, some cardiomegaly. Two-D echocardiogram showed EF of 45% to 50%. ASSESSMENT: 1. Unstable angina in a patient with known coronary artery disease who presented with a cardiac-sounding presentation with two-dimensional echo showing inferior hypokinesis and nuclear stress test showing decreased perfusion on activity. The patient will probably need a cardiac catheterization. 2. Coronary artery disease with prior history of stent in November of 2016. 3. Chronic obstructive pulmonary disease in an ex-smoker. 4. Gastroesophageal reflux disease. 5. History of atrial fibrillation. The patient is chronically on Xarelto. PLAN: Cardiology was consulted, who did order the stress test which was positive. Patient's Xarelto will be held. Care was discussed with the patient. Questions were answered. MMODL / IJN: [id number] /
[2018-07-20 17:10] LABS: Glucose,Whole Blood 92 mg/dL (75-99)
[2018-07-20] MEDS: RIVAROXABAN 15 MG TAB PO SCH (17:12)
--- NOTE | 2018-07-20 17:33 | EST ---
EXERCISE STRESS AGE: 67 SEX: Male HT: 65" WT: 172 pounds PROTOCOL: Lexiscan Cardiolite STAGE: DURATION OF EXERCISE: HEART RATE REST: 51 BLOOD PRESSURE REST: 123/71 MAXIMUM HEART RATE ACHIEVED: 95 MAXIMUM BLOOD PRESSURE: 139/63 85% MPHR: 132 100% MPHR: 155 METS: INDICATIONS: Chest pain. CLINICAL INFORMATION: Baseline EKG shows sinus rhythm with right bundle branch block, intraventricular conduction delay and prior inferior wall myocardial infarction. Patient was given intravenous Lexiscan as per protocol. He did not have chest pain or diagnostic ST- segment depression. CONCLUSIONS: 1. Inconclusive EKG part of the stress test due to baseline EKG abnormalities. 2. Cardiolite portion of the stress test will be reported separately. MMODL / IJN: [id number] /
[2018-07-20] MEDS: METOPROLOL TARTRATE 25 MG TAB PO SCH (20:32)
[2018-07-20] MEDS: LISINOPRIL 5 MG TAB PO SCH (20:32)
[2018-07-20] MEDS: ATORVASTATIN 80 MG TAB PO SCH (20:33)
[2018-07-21] MEDS: ASPIRIN 81 MG PO SCH (08:56)
[2018-07-21] MEDS: ISOSORBIDE MONONITRATE ER 30 MG TAB.ER.24H PO SCH (08:56)
[2018-07-21] MEDS: CLOPIDOGREL 75 MG TAB PO SCH (08:56)
[2018-07-21] MEDS: GABAPENTIN 300 MG CAP PO SCH ×2 (08:56→20:43)
[2018-07-21] MEDS ORDERED: ALPRAZolam 0.25 MG TAB PO PRN (09:15)
[2018-07-21] MEDS ORDERED: SODIUM CHLORIDE 0.9% 1,000 ML in EMPTY BAG 1 BAG IV ONE (09:15)
[2018-07-21] MEDS ORDERED: ALPRAZolam 0.5 MG TAB PO PRN (09:15)
[2018-07-21] MEDS: METOPROLOL TARTRATE 50 MG TAB PO SCH (11:02)
--- NOTE | 2018-07-21 11:38 | P.PN ---
Subjective Patient was seen and examined sitting up in bed with at the bedside. Past medical history significant for coronary artery disease s/p bypass grafting 2004 and angioplasty of [place] circumflex. 09/06/2018 he underwent stenting of the SVG-OM 09/06/2018. In October 2017 he was brought in to undergo elective PCI of circumflex and went into asystole. He underwent permanent pacemaker implantation at that time and was brought back electively 11/2017 for PCI of circumflex artery. He also has paroxysmal atrial fibrillation on chcf anticoagulation. Lexiscan stress test obtained yesterday reveals decreased perfusion on stress images involving the anterior lateral wall, stress-induced ischemia not excluded. 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 Falk yesterday afternoon and he recommended starting him on imdur and continuing to observe him. Imdur was given yesterday around 1600. After receiving he got up and walked the halls without incident. No chest pain or shortness of breath with exertion. However, later in the evening around 1850, just after eating dinner he was sitting up in the chair and again had the same sharp pain in the chest and became acutely diaphoretic. Symptoms lasted for 10- 15 minutes. EKG obtained at the time revealed no change from previous. Echocardiogram obtained yesterday reveals mildly impaired left ventricular systolic function with ejection fraction 45-50%. Blood presure 109/59 heart rate 59. His blood pressure was going down overnight last night a couple times 59/52 and 93/44. GENERAL: Well-appearing, well-nourished and in no acute distress. NECK: Supple without JVD or thyromegaly. LUNGS: Breath sounds clear to auscultation bilaterally. Respiration equal and unlabored. No wheezes, rales or rhonchi. HEART: Regular rate and rhythm without murmurs, rubs or gallops. S1 and S2 heard. EXTREMITIES: Normal range of motion, no edema. No clubbing or cyanosis. Peripheral pulses intact. ASSESSMENT Chest pain, atypical. An acute coronary event has been ruled out. Positive stress test and ongoing chest pain despite addition of long acting nitrate. History of coronary artery disease status post bypass grafting and recent angioplasty. Currently maintained on dual antiplatelet therapy. Hypertension Dyslipidemia Permanent pacemaker implantation Former nicotine dependence, quit 2015. COPD Paroxysmal atrial fibrillation on long-term anticoagulation. Currently maintaining sinus mechanism PLAN With ongoing symptoms of chest pain we recommend he undergo cardiac catheterization. This was discussed with Dr. Falk and he will be boarded for tomorrow morning. Hold Xarelto today. I have discussed the risks, benefits and alternative therapies for the above- mentioned procedure and for both sedation/analgesia as well as necessary blood product administration, if indicated, as they pertain to this patient. The patient has indicated understanding and acceptance of the risks and procedures discussed. Questions have been answered appropriately and he is agreeable to move forward with above stated procedure. Decrease HS lisinopril to 2.5 mg. Interrogate pacemaker with Jajah. Further recommendations to follow. Nurse Practitioner note has been reviewed, I agree with a documented findings and plan of care. Patient was seen and examined. Objective - Vital Signs Vital signs: Vital Signs Temp 98.2 F 07/21/18 07:24 Pulse 59 L 07/21/18 07:34 Resp 16 07/21/18 07:34 BP 109/59 07/21/18 07:34 Pulse Ox 98 07/21/18 07:34 Intake & Output 07/20/18 07/21/18 07/21/18 18:59 06:59 18:59 Intake Total 240 Balance 240 Weight 78.018 kg Intake: Oral 240 Other: Voiding Method Toilet Toilet Toilet # Voids 1 1 1 - Labs CBC & Chem 7: 07/19/18 11:39 07/19/18 11:39
[2018-07-21] MEDS ORDERED: ACETAMINOPHEN TAB 325 MG TAB PO PRN (16:07)
[2018-07-21] MEDS: ATORVASTATIN 80 MG TAB PO SCH (20:43)
[2018-07-21] MEDS: METOPROLOL TARTRATE 25 MG TAB PO SCH (20:43)
[2018-07-21] MEDS ORDERED: LISINOPRIL 2.5 MG TAB PO SCH (21:00)
--- NOTE | 2018-07-21 23:55 | PN ---
PROGRESS NOTE DATE OF SERVICE: 07/21/2018. PRESENT COMPLAINT: Chest pain. INTERVAL HISTORY: This patient presented with unstable angina, now with a positive stress test. Some episodes of chest pain. Awaiting a cardiac catheterization. Up to the bathroom. REVIEW OF SYSTEMS: Done for constitutional, cardiovascular, GI, pulmonary; relevant findings as above. CURRENT MEDICATIONS: Reviewed include Lopressor, aspirin, Plavix. PHYSICAL EXAMINATION: Temperature 97.8, pulse 58, respiratory rate 18, blood pressure 142/74, pulse ox 96% on room air. GENERAL APPEARANCE: Sitting up, comfortable. EYES: Pupils equal. Conjunctivae normal. HEENT: External appearance of nose and ears normal. Oral cavity normal. NECK: JVD not raised. Mass not palpable. Respiratory effort normal. LUNGS: Decreased breath sounds. CARDIOVASCULAR: 1st and 2nd heart sounds normal. No edema. ABDOMEN: Soft, nontender. Liver and spleen not palpable. PSYCHIATRY: Alert and oriented x3. Mood and affect normal. INVESTIGATIONS: No blood work from today. Accu-Cheks noted. ASSESSMENT: 1. Unstable angina with positive stress test and known coronary artery disease. Awaiting cardiac catheterization. 2. Coronary artery disease with prior stent in November 2016. 3. Chronic obstructive pulmonary disease in an ex-smoker. 4. Gastroesophageal reflux disease. 5. Paroxysmal atrial fibrillation. Patient chronically on Xarelto. PLAN: Continue current medication and treatment plan. Await cardiac catheterization. Care was discussed with the patient. MMCYNDYL / CHARLIN: [id number] /
[2018-07-22] MEDS ORDERED: ASPIRIN 325 MG TAB PO STA (03:59)
[2018-07-22] MEDS ORDERED: ATORVASTATIN 80 MG TAB PO STA (03:59)
[2018-07-22] MEDS: ASPIRIN 81 MG PO SCH (04:59)
[2018-07-22] MEDS: METOPROLOL TARTRATE 50 MG TAB PO SCH (05:45)
[2018-07-22] MEDS: ISOSORBIDE MONONITRATE ER 30 MG TAB.ER.24H PO SCH (05:45)
[2018-07-22] MEDS: GABAPENTIN 300 MG CAP PO SCH ×2 (05:45→20:52)
[2018-07-22] MEDS: CLOPIDOGREL 75 MG TAB PO SCH (05:45)
[2018-07-22] MEDS ORDERED: IV FLUID CONTINUATION 1,000 ML IV ONE (07:14)
[2018-07-22] MEDS ORDERED: diphenhydrAMINE 50 MG/ML 1 ML VIAL ONE (07:17)
[2018-07-22] MEDS ORDERED: LIDOCAINE 1% INJ 10MG/ML (20 ML MDV) ONE (07:17)
[2018-07-22] MEDS ORDERED: MIDAZOLAM 2 MG/2 ML VIAL ONE (07:17)
[2018-07-22] MEDS ORDERED: diphenhydrAMINE 50 MG/ML 1 ML VIAL IVP ONE (07:23)
[2018-07-22] MEDS: MIDAZOLAM 2 MG/2 ML VIAL IV ONE ×2 (07:23→07:29)
[2018-07-22] MEDS ORDERED: LIDOCAINE 1% INJ 10MG/ML (20 ML MDV) SQ ONE (07:28)
[2018-07-22] MEDS ORDERED: NITROGLYCERIN 1000MCG/10ML SYRINGE INTRACORON ONE (07:39)
[2018-07-22] MEDS ORDERED: niCARdipine 25 MG/10 ML VIAL ONE (07:50)
[2018-07-22] MEDS ORDERED: niCARdipine Syringe (1,000 mcg/10 mL) INTRACORON ONE (07:51)
[2018-07-22] MEDS ORDERED: IOPAMIDOL-370 125ML BTL INJ ONE (07:59)
[2018-07-22] MEDS ORDERED: IOPAMIDOL-370 50ML BTL INJ ONE (08:04)
[2018-07-22] MEDS ORDERED: RX INFO: IV CONTRAST WAS GIVEN 1 EACH MISC MISCELLANE PRN (08:19)
[2018-07-22] MEDS ORDERED: 0.45% NACL 1 500ML.BAG with HEPARIN SOD,PORK IN 0.45% NACL 25,000 UNIT IV SCH (10:30)
[2018-07-22] MEDS: SODIUM CHLORIDE 0.9% 1,000 ML IV SCH (11:10)
--- NOTE | 2018-07-22 11:59 | US ---
EXAMINATION TYPE: US venous doppler duplex LE RT DATE OF EXAM: 07/22/2018 11:27 AM COMPARISON: NONE CLINICAL HISTORY: intermittent pulse post cath. SIDE PERFORMED: Right TECHNIQUE: The lower extremity deep venous system is examined utilizing real time linear array sonog emerald with graded compression, doppler sonography and color-flow sonography. VESSELS IMAGED: External Iliac Vein (EIV) Common Femoral Vein Deep Femoral Vein Greater Saphenous Vein * Femoral Vein Popliteal Vein Small Saphenous Vein * Proximal Calf Veins (* superficial vessels) Right Leg: Negative for DVT IMPRESSION: No evidence for DVT at this time.
--- NOTE | 2018-07-22 12:00 | US ---
EXAMINATION TYPE: US lower ext pseudo artery RT DATE OF EXAM: 07/22/2018 COMPARISON: NONE CLINICAL HISTORY: intermittent pulse post cath. EXAM PERFORMED: Grayscale and color Doppler duplex imaging performed of the groin, post cardiac xavier ter to assess for pseudoaneurysm. SIDE PERFORMED: Right Color and Waveform Doppler performed to assess for the presence of pseudoaneurysm; Is there ultrasound evidence of a pseudoaneurysm: NONE Is there evidence of AV shunting: NO Is there a fluid collection present: NO Negative exam. IMPRESSION: No evidence for pseudoaneurysm at this time.
[2018-07-22] MEDS ORDERED: RIVAROXABAN 10 MG TAB PO SCH (18:00)
[2018-07-22] MEDS: ATORVASTATIN 80 MG TAB PO SCH (20:52)
[2018-07-22] MEDS ORDERED: RIVAROXABAN 15 MG TAB PO SCH (21:00)
--- NOTE | 2018-07-22 21:44 | CC ---
CARDIAC CATHETERIZATION REPORT DATE OF SERVICE: 07/22/2018. PROCEDURE: Left heart catheterization, coronary angiography, selective injection of bypass grafts. PERFORMED BY: Dr. Frank Falk. ANESTHESIA: Moderate conscious sedation time was 45 minutes. Patient was administered Versed and Benadryl and his oxygen saturation, hemodynamics and EKG were monitored closely. CLINICAL INFORMATION: Mr. Jey Kingsley is a 67-year-old gentleman with a known history of CAD, prior bypass surgery in 2004, and in August 2016 I performed stenting of a vein graft to the second obtuse marginal and I also performed stenting of [place] circumflex in the proximal and midportion in November of 2016. He also has a sick sinus syndrome and a dual- chamber pacemaker that has been checked and is functioning well. In 2004, he underwent aortocoronary bypass surgery at [facility], with ZABALA to LAD and 2 separate vein graft to the 2 obtuse marginal branches of circumflex. RCA was totally occluded and not grafted, probably was nondominant. He has been hospitalized with episodes of chest pain, recurrent in nature. No elevation of troponin. EKG was inconclusive. Given his ongoing pain, he had a stress test which revealed a small area of reversibility in the lateral wall, but because of ongoing symptoms, he was advised cardiac catheterization after due discussion regarding risks, benefits, and options. PROCEDURE NOTE: Under local anesthesia and strict aseptic precautions, a 6-Mong[place] introducer was placed in the right femoral artery. A standard left Lissett catheter was used for selective coronary angiography of the left coronary artery, AR1 catheter was used to selectively cannulate the right coronary artery and the same catheter was used to selectively inject the 2 vein grafts. I used a Marielle catheter for the ZABALA. I used a pigtail catheter to check LV pressures but did not perform LV gram. The patient tolerated the procedure well. Following the procedure, I placed an Angio-Seal device to secure hemostasis. Following the procedure, there was some decrease in the distal lower extremity pulse and there was a Doppler pulse when he left the room and this was closely followed and in about an hour or 2 his pulse came come back to normal completely. CARDIAC CATHETERIZATION FINDINGS: The left ventricular end-diastolic pressure was about 12 mmHg without any gradient across aortic valve. CORONARY ANGIOGRAPHY FINDINGS: 1. Left main coronary artery: Short patent vessel that has no significant disease. Bifurcates into LAD and circumflex. There is some calcification noted. 2. Left anterior descending coronary artery: This is totally occluded without any antegrade flow of significance. 3. Left posterior circumflex coronary artery: This is a dominant vessel that gives off 2 obtuse marginal that are blocked. It continues distally and gives off a posterolateral branch. The ostial circumflex and mid circumflex are both stented. They are widely patent with brisk flow. No significant disease is noted. 4. Right coronary artery: This vessel is a totally occluded with some ipsilateral collaterals. The conus branch seems to be free of significant disease. 5. Saphenous vein graft to the obtuse marginal branch of circumflex: This graft is totally occluded, seen as a stump. 6. Saphenous vein graft to the PLV branch of circumflex: This graft was stented by me in August 2016. This is widely patent at the site of stenting, but the graft is large in caliber with a mismatch. There is about a 40% narrowing in the body of the graft, but overall flow is excellent and there is no significant compromise in the in the caliber or the flow in this vessel. 7. Left internal mammary artery graft to the LAD: This graft is widely patent at its origin, course and insertion site. Beyond insertion, there is mild diffuse disease in the LAD but no significant lesion is noted. FINAL IMPRESSION: This patient has normal filling pressures, total occlusion of RCA and LAD with a patent ZABALA. One of the vein grafts to the obtuse marginal is occluded but the vein graft to the second obtuse marginal or probably the PLV is widely patent at the site of previous stenting with good flow and a 40% lesion within the body. [place] circumflex is widely patent at the site of stenting. Filling pressures are acceptable. There was no gradient across aortic valve. RECOMMENDATIONS: Findings were discussed with the patient and several family members, including his and children. I am recommending continued medical therapy with risk factor modification. No intervention necessary. Patient will be watched closely for his lower extremity pulse issues. MMODL / IJN: [id number] /
--- NOTE | 2018-07-22 22:56 | PN ---
PROGRESS NOTE DATE OF SERVICE: 07/22/2018 PRESENTING COMPLAINT: Chest pain. INTERVAL HISTORY: This patient presented with unstable angina, had a positive stress test. Did have a cardiac catheterization today by Dr. Frank Falk. One of the grafts was totally closed off. Decision was made to proceed with medical management. Post procedure patient did have a cold leg, but then pulses did come back. The patient is on bedrest. No further chest pain. at the bedside. REVIEW OF SYSTEMS: Done for constitutional, cardiovascular, GI, pulmonary; relevant findings as above. CURRENT MEDICATIONS: Reviewed that include Plavix, Lopressor IV heparin, saline. PHYSICAL EXAMINATION: VITAL SIGNS: Temperature 92, pulse 53, respiratory 18, blood pressure 113/57, pulse ox 95% on room air. GENERAL APPEARANCE: Lying in bed, awake. EYES: Pupils equal. Conjunctivae normal. HEENT: External appearance of nose and ears normal. Oral cavity normal. NECK: JVD not raised. Mass not palpable. RESPIRATORY: Effort normal. LUNGS: Decreased breath sounds. CARDIOVASCULAR: 1st and 2nd sounds normal. No edema. ABDOMEN: Soft. Nontender. Liver and spleen not palpable. PSYCHIATRY: Alert and oriented x3. Mood and affect normal. INVESTIGATIONS: Cardiac catheterization results noted. ASSESSMENT: 1. Coronary artery disease with one of the grafts that is blocked for medical management. 2. Chronic obstructive pulmonary disease in an ex-smoker. 3. Gastroesophageal reflux disease. 4. Paroxysmal atrial fibrillation patient chronically on Xarelto. 5. IV heparin monitoring. PLAN: Patient currently on IV heparin monitoring. Later will be switched to Xarelto. Dr. Falk has spoken to the patient and the family for medical management. Proceed from there. MMODL / IJN: [id number] /
[2018-07-23] MEDS: SODIUM CHLORIDE 0.9% 1,000 ML IV SCH (02:44)
[2018-07-23] MEDS: CLOPIDOGREL 75 MG TAB PO SCH (10:09)
[2018-07-23] MEDS: GABAPENTIN 300 MG CAP PO SCH (10:09)
[2018-07-23] MEDS: METOPROLOL TARTRATE 50 MG TAB PO SCH (10:09)
--- NOTE | 2018-07-23 11:10 | P.PN ---
Subjective Progress Note Date: 07/23/18 Patient was seen and examined sitting up in bed with at the bedside. Past medical history significant for coronary artery disease s/p bypass grafting 2004 and angioplasty of [place] circumflex. 09/06/2018 he underwent stenting of the SVG-OM 09/06/2018. In October 2017 he was brought in to undergo elective PCI of circumflex and went into asystole. He underwent permanent pacemaker implantation at that time and was brought back electively 11/2017 for PCI of circumflex artery. 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 The patient underwent a Lexiscan this admission which came back to be positive and for this reason he underwent a cardiac catheterization by Dr. Tonja Falk. Cardiac catheterization revealed normal filling pressures, total occlusion of the RCA and LAD with a patent ZABALA, one of the vein grafts to the obtuse marginal is occluded but the vein graft to the second obtuse marginal is widely patent at the site of prior stenting, [place] circumflex widely patent, no gradient across the aortic valve. Maximal medical therapy recommended by Dr. Tonja Falk. Subsequent to the procedure, patient had decreased pulse in his right foot, and his foot was cold. He also had developed a hematoma. An ultrasound of the groin was performed which did not reveal any evidence of a pseudoaneurysm. Venous duplex study negative for DVT. At the time of our examination this morning, patient felt well, denies any chest pain and his breathing was stable. His right groin remains tender, there is a mild hematoma, mild bruit there. Objective - Vital Signs Vital signs: Vital Signs Temp 98.3 F 07/23/18 04:00 Pulse 55 L 07/23/18 04:00 Resp 16 07/23/18 04:00 BP 116/62 07/23/18 04:00 Pulse Ox 96 07/23/18 04:00 Intake & Output 07/22/18 07/23/18 07/23/18 18:59 06:59 18:59 Intake Total 790 Balance 790 Weight 76.1 kg Intake: IV 200 Intake, IV Titration 350 Amount 0.45% NaCl 1 500ml.bag @ 100 1,000 UNIT/HR 20 mls/hr IV .Q24H RODNEY with Heparin Sod,Pork in 0.45% NaCl 25,000 unit Rx#:[id number] Sodium Chloride 0.9% 1, 250 000 ml In Empty Bag 1 bag @ 1 ML/KG/HR 78.01 mls/ hr IV .[id number] Rx#: [id number] Oral 240 Other: Voiding Method Toilet # Voids 1 - Exam PHYSICAL EXAMINATION: GENERAL: 67-year-old gentleman in no acute distress at the time of my examination HEENT: Head is atraumatic, normocephalic. Pupils equal, round. Sclera anicteric. Conjunctiva are clear. Mucous membranes of the mouth are moist. Neck is supple. There is no elevated jugular venous pressure.] bruit is heard. HEART EXAMINATION: Heart S1, S2 normal. No murmur or gallop heard. CHEST EXAMINATION: Lungs are clear to auscultation and precussion. No chest wall tenderness is noted on palpation or with deep breathing. ABDOMEN: Soft, nontender. Bowel sounds are heard. No organomegaly noted. EXTREMITIES: 2+ peripheral pulses with no evidence of peripheral edema and no calf tenderness noted. Right groin small hematoma noted, positive bruit noted, positive tenderness. Positive ecchymosis NEUROLOGIC patient is awake, alert and oriented ?-3. . - Labs CBC & Chem 7: 07/19/18 11:39 07/19/18 11:39 Assessment and Plan Plan: Assessment and plan #1 chest pain, positive Lina scan stress test, status post cardiac catheterization medical therapy advised. #2 right groin hematoma with episode of loss of pulse and cold foot. Venous duplex negative. Ultrasound of the groin negative for pseudoaneurysm. #3 known history of coronary artery disease or prior bypass surgery and PCI #4 hypertension #5 hyperlipidemia #6 history of prior pacemaker #7 history of nicotine dependence #8 COPD #9 history of paroxysmal atrial fibrillation remaining in normal sinus rhythm. Plan From cardiology's perspective, patient may be able to be discharged home today. We'll make him a follow-up appointment on Friday with Dr. Tonja Falk in the office. He is to continue the current medications he is on at this time. No Imdur on discharge, this will be reevaluated in the office again by Dr. Tonja Falk. DNP note has been reviewed, I agree with a documented findings and plan of care. Patient was seen and examined.
[2018-07-23 11:28] VITALS: RESP 18
[2018-07-23 14:16] VITALS: BP 131/73; PULSE 59; TEMP 98.5
[2018-07-23] MEDS ORDERED: LISINOPRIL 2.5 MG TAB PO SCH (21:00)
[2018-07-23] MEDS ORDERED: METOPROLOL TARTRATE 25 MG TAB PO SCH (21:00)
--- NOTE | 2018-07-25 06:11 | DS ---
DISCHARGE SUMMARY DATE OF ADMISSION: 07/19/2018. DATE OF DISCHARGE: 07/23/2018. FINAL DIAGNOSES: 1. Unstable angina. 2. Coronary artery disease. 3. Chronic obstructive pulmonary disease in an ex-smoker. 4. Gastroesophageal reflux disease. 5. Paroxysmal atrial fibrillation chronically on Xarelto. 6. IV heparin monitoring. 7. Severe epistaxis from nasal picking. HOSPITAL COURSE: This patient presented with chest pain, did undergo a stress test that was positive. Cardiac cath showed blockage of one of the grafts. More details in Dr. Frank Falk's notes. The patient temporally had right cold leg, but then it became warm again. On the day of discharge, the patient had significant epistaxis. Nasal packing. I did some nasal packing. The patient was observed. No further bleeding till later. The patient had no chest pain or short of breath. Care was discussed with the patient. Questions were answered. PHYSICAL EXAMINATION: Temperature 98.5, pulse 79, respiratory 18, blood pressure 130/73, pulse ox 95% on room air. Lungs are clear. Cardiovascular: 1st and 2nd sounds normal. INVESTIGATIONS: Hemoglobin 15.5. CONSULTATIONS: Dr. Frank Falk from interventional cardiology, Dr. Mansi Alvarez from Cardiology. The patient 2D echocardiogram showed an EF of 45-50 percent. Discussion and discharge planning more than 35 minutes. DISCHARGE MEDICATIONS: 1. Neurontin 300 mg p.o. b.i.d. 2. Nitrostat 0.4 sublingual q.5 p.r.n. 3. Ferrous sulfate 325 mg p.o. b.i.d. 4. Lipitor 80 mg q.h.s. 5. Plavix 75 mg p.o. daily. 6. Omeprazole 20 mg p.o. daily. 7. MiraLAX 17 g p.o. q.h.s. p.r.n. 8. Tylenol 650 mg q.6h p.r.n. 9. Ventolin HFA 1 or 2 puffs q. b.i.d. p.r.n. 10.Symbicort 160/4.5, 2 puffs b.i.d. 11.DuoNeb q.i.d. p.r.n. 12.Lopressor 25 mg q.h.s., 50 mg in the morning. 13.Xarelto 50 mg p.o. q.h.s. 14.Wellbutrin SR 150 mg p.o. b.i.d. 15.Prednisone 5 mg p.o. daily. 16.Zestril 2.5 mg p.o. daily. FOLLOWUP: Follow up with Dr. Frank Falk on 08/01/2018. Follow up with Emilia Bob 07/27/2018. Discussion and discharge planning more than [address] Emilia Bob. MMODL / IJN: [id number] /
== END 2018-07-23 17:35 | disposition home or self-care (01) | DRG 287 ==
LOC: EC 11:21 → 1SOBS 14:26 → OBSVTOIN 07-21 12:29 → 3SCARD 07-21 17:33
PROVIDERS: ADMIT Hospitalist; ATTEND Hospitalist
PROC: B2131ZZ Fluoroscopy of Multiple Coronary Artery Bypass Grafts using Low Osmolar Contrast (ICD-10-PCS; 2018-07-22)
PROC: B2181ZZ Fluoroscopy of Left Internal Mammary Bypass Graft using Low Osmolar Contrast (ICD-10-PCS; 2018-07-22)
PROC: B2111ZZ Fluoroscopy of Multiple Coronary Arteries using Low Osmolar Contrast (ICD-10-PCS; 2018-07-22)
PROC: 4A023N7 Measurement of Cardiac Sampling and Pressure, Left Heart, Percutaneous Approach (ICD-10-PCS; principal; 2018-07-22 07:00)
DX: I25.710 Atherosclerosis of autologous vein coronary artery bypass graft(s) with unstable angina pectoris (principal); I25.110 Atherosclerotic heart disease of native coronary artery with unstable angina pectoris; I25.82 Chronic total occlusion of coronary artery; I48.0 Paroxysmal atrial fibrillation; J44.9 Chronic obstructive pulmonary disease, unspecified; I45.10 Unspecified right bundle-branch block; E78.5 Hyperlipidemia, unspecified; I10 Essential (primary) hypertension; K21.9 Gastro-esophageal reflux disease without esophagitis; K44.9 Diaphragmatic hernia without obstruction or gangrene; M51.9 Unspecified thoracic, thoracolumbar and lumbosacral intervertebral disc disorder; M19.91 Primary osteoarthritis, unspecified site; R04.0 Epistaxis; Z79.01 Long term (current) use of anticoagulants; Z79.02 Long term (current) use of antithrombotics/antiplatelets; Z79.82 Long term (current) use of aspirin; Z79.51 Long term (current) use of inhaled steroids; Z79.52 Long term (current) use of systemic steroids; Z79.899 Other long term (current) drug therapy; Z86.74 Personal history of sudden cardiac arrest; Z95.1 Presence of aortocoronary bypass graft; Z95.0 Presence of cardiac pacemaker; Z95.5 Presence of coronary angioplasty implant and graft; Z87.01 Personal history of pneumonia (recurrent); Z87.891 Personal history of nicotine dependence; Z98.52 Vasectomy status; Z98.42 Cataract extraction status, left eye; Z98.41 Cataract extraction status, right eye; Z82.49 Family history of ischemic heart disease and other diseases of the circulatory system; Z80.8 Family history of malignant neoplasm of other organs or systems
CPT/HCPCS: 36415; 71046; 78452; 80053; 82550; 82553; 83735; 83880; 84484; 85025; 85610; 85730; 93005; 93017; 93306; 93459; 93975; 99285

== ENCOUNTER 2018-08-19 19:31 | Inpatient (IN) | payer OTHER, BC ==
[2018-08-19 20:46] LABS: Basophils # (A) 0.1 k/uL (0-0.2); Basophils % (A) 1 %; Eosinophils # (A) 0.1 k/uL (0-0.7); Eosinophils % (A) 1 %; HCT 48.3 % (39.0-53.0); HGB 16.2 gm/dL (13.0-17.5); Lymphocytes # (A) 1.6 k/uL (1.0-4.8); Lymphocytes % (A) 17 %; MCH 30.8 pg (25.0-35.0); MCHC 33.7 g/dL (31.0-37.0); MCV 91.5 fL (80.0-100.0); Mean Platelet Volume 6.7; Monocytes # (A) 0.8 k/uL (0-1.0); Monocytes % (A) 8 %; Neutrophils # (A) 6.7 k/uL (1.3-7.7); Neutrophils % (A) 71 %; Platelet Count 269 k/uL (150-450); RBC 5.27 m/uL (4.30-5.90); RDW 13.4 % (11.5-15.5); WBC 9.5 k/uL (3.8-10.6)
[2018-08-19 20:56] LABS: ALT 40 U/L (21-72); AST 25 U/L (17-59); Albumin 3.9 g/dL (3.5-5.0); Alkaline Phosphatase 90 U/L (38-126); Anion Gap 8 mmol/L; Blood Urea Nitrogen 10 mg/dL (9-20); Calcium 9.5 mg/dL (8.4-10.2); Carbon Dioxide 23 mmol/L (22-30); Chloride 107 mmol/L (98-107); Glucose 101 mg/dL (74-99); Magnesium 1.9 mg/dL (1.6-2.3); Potassium 4.7 mmol/L (3.5-5.1); Sodium 138 mmol/L (137-145); Total Bilirubin 0.3 mg/dL (0.2-1.3); Total Protein 6.5 g/dL (6.3-8.2)
[2018-08-19 20:58] LABS: Creatine Kinase 40 U/L (55-170); Partial Thromboplastin Time 24.8 sec (22.0-30.0); Prothrombin Time 10.1 sec (9.0-12.0)
[2018-08-19 21:11] LABS: Creatine Kinase MB 0.9 ng/mL (0.0-2.4); Troponin I <0.012 ng/mL (0.000-0.034)
--- NOTE | 2018-08-19 21:19 | XR ---
EXAMINATION TYPE: XR chest 2V DATE OF EXAM: 08/19/2018 COMPARISON: 07/19/2018 HISTORY: Chest pain TECHNIQUE: Frontal and lateral views of the chest are obtained. FINDINGS: There is no heart failure nor confluent pneumonic infiltrate. There are sternal wires. The re is left axillary pacemaker with the lead tips in the right ventricle. The bony thorax is intact. T here is slight coarsening of the lung markings. There is very slight blunting of the left costophreni c angle. IMPRESSION: No active cardiopulmonary disease. Mild pulmonary and pleural fibrosis. No change.
--- NOTE | 2018-08-19 23:10 | ED ---
General Adult HPI <Ras Newby - Last Filed: 08/19/18 23:39> - General Source: patient, family, RN notes reviewed <Arvin Vee - Last Filed: 08/21/18 05:36> - General Chief complaint: Chest Pain Stated complaint: Chest pain Time Seen by Provider: 08/19/18 19:47 - History of Present Illness Initial comments: 68-year-old male with a past medical history of atrial fibrillation, CAD, COPD, GERD presents to the emergency department for a chief complaint of pacemaker issues. Patient states this has been ongoing for the last 2 hours prior to presentation. He states he feels like it is in his chest. Patient states he has his pacemaker due to atrial fibrillation as well as bradycardia and was placed in August [address] LIDIA Falk. Patient admits to mild chest pain earlier in the day today. He describes the pain as a sharp aching pain in the center his chest. He states this pain comes and goes. He is not sure what makes the pain better or worse. He denies any shortness of breath associated with this pain. Patient has no other complaints at this time including shortness of breath, abdominal pain, nausea or vomiting, headache, or visual changes. (Arvin Vee) - Related Data Home Medications Medication Instructions Recorded Confirmed Gabapentin [Neurontin] 300 mg PO BID 10/08/14 08/19/18 Nitroglycerin Sl Tabs [Nitrostat] 0.4 mg SUBLINGUAL Q5M PRN 10/08/14 08/19/18 Ferrous Sulfate [Iron (65 MG 325 mg PO BID 09/03/16 08/19/18 Elemental)] Polyethylene Glycol 3350 [Miralax] 17 gm PO HS PRN 10/30/16 08/19/18 Acetaminophen Tab [Tylenol] 650 mg PO Q6H PRN 07/19/18 08/19/18 Albuterol Inhaler [Ventolin Hfa 1 - 2 puff INHALATION RT-BID PRN 07/19/18 Inhaler] Budesonide/Formoterol Fumarate 2 puff INHALATION RT-BID 07/19/18 08/19/18 [Symbicort 160-4.5 Mcg Inhaler] Ipratropium-Albuterol Nebulize 3 ml INHALATION RT-TID PRN 07/19/18 08/19/18 [Duoneb 0.5 mg-3 mg/3 ml Soln] Metoprolol Tartrate [Lopressor] 25 mg PO HS 07/19/18 08/19/18 Metoprolol Tartrate [Lopressor] 50 mg PO QAM 07/19/18 08/19/18 Rivaroxaban [Xarelto] 15 mg PO AC-SUPPER 07/19/18 08/19/18 buPROPion HCL [Wellbutrin SR] 150 mg PO BID 07/19/18 08/19/18 predniSONE 5 mg PO DAILY 07/19/18 08/19/18 Lisinopril [Zestril] 2.5 mg PO HS 08/19/18 08/19/18 Pantoprazole Sodium [Protonix] 40 mg PO DAILY 08/19/18 08/19/18 Previous Rx's Medication Instructions Recorded Atorvastatin [Lipitor] 80 mg PO HS #90 tab 09/07/16 Clopidogrel [Plavix] 75 mg PO DAILY #90 tab 09/07/16 Allergies Allergy/AdvReac Type Severity Reaction Status Date / Time ibuprofen [From Motrin IB] AdvReac Unknown Verified 08/19/18 20:03 Review of Systems ROS Other: All systems not noted in ROS Statement are negative. <Ras Newby B - Last Filed: 08/19/18 23:39> ROS Other: All systems not noted in ROS Statement are negative. <Arvin Vee - Last Filed: 08/21/18 05:36> ROS Statement: Those systems with pertinent positive or pertinent negative responses have been documented in the HPI. Past Medical History Past Medical History: Atrial Fibrillation, Coronary Artery Disease (CAD), COPD, GERD/Reflux, Osteoarthritis (OA), Pneumonia, Respiratory Disorder Additional Past Medical History / Comment(s): small hiatal hernia, hx anemia, ventral hernia, lumbar disk disorder, History of Any Multi-Drug Resistant Organisms: None Reported Past Surgical History: Coronary Bypass/CABG, Heart Catheterization, Heart Catheterization With Stent, Hernia Repair, Orthopedic Surgery, Pacemaker Additional Past Surgical History / Comment(s): Vasectomy 1995, CABG 2004, KELLY CATARACT, VASECTOMY, BONE INFUSION MIDDLE LT FINGER CRUSHING INJURY 1988, rt knee arthroscopy, [employer] pacemaker placed, 11/04/16, 3 stents to Circ 12/16/16 Past Anesthesia/Blood Transfusion Reactions: No Reported Reaction Date of Last Stent Placement:: 12/16/16 Type of Cardiac Device: Permanent Pacemaker Device Placement Date:: 11/04/16 Past Psychological History: No Psychological Hx Reported Smoking Status: Former smoker Past Alcohol Use History: Rare Past Drug Use History: None Reported - Past Family History Father Family Medical History: Cancer Additional Family Medical History / Comment(s): . Mother Family Medical History: Coronary Artery Disease (CAD) Additional Family Medical History / Comment(s): HEART PROBLEMS <Arvin Vee - Last Filed: 08/21/18 05:36> General Exam General appearance: alert, in no apparent distress Head exam: Present: atraumatic, normocephalic, normal inspection Eye exam: Present: normal appearance, PERRL, EOMI. Absent: scleral icterus, conjunctival injection, periorbital swelling ENT exam: Present: normal exam, mucous membranes moist Neck exam: Present: normal inspection. Absent: tenderness, meningismus, lymphadenopathy Respiratory exam: Present: normal lung sounds bilaterally. Absent: respiratory distress, wheezes, rales, rhonchi, stridor Cardiovascular Exam: Present: regular rate, normal rhythm, normal heart sounds. Absent: systolic murmur, diastolic murmur, rubs, gallop, clicks GI/Abdominal exam: Present: soft, normal bowel sounds. Absent: distended, tenderness, guarding, rebound, rigid Extremities exam: Present: normal inspection, full ROM, normal capillary refill. Absent: tenderness, pedal edema, joint swelling, calf tenderness Back exam: Present: normal inspection Neurological exam: Present: alert, oriented X3, CN II-XII intact Psychiatric exam: Present: normal affect, normal mood Skin exam: Present: warm, dry, intact, normal color. Absent: rash <Ras Newby - Last Filed: 08/19/18 23:39> General appearance: alert, in no apparent distress Head exam: Present: atraumatic, normocephalic, normal inspection Eye exam: Present: normal appearance, PERRL, EOMI. Absent: scleral icterus, conjunctival injection, periorbital swelling ENT exam: Present: normal exam, mucous membranes moist Neck exam: Present: normal inspection, full ROM. Absent: tenderness, meningismus, lymphadenopathy Respiratory exam: Present: normal lung sounds bilaterally. Absent: respiratory distress, wheezes, rales, rhonchi, stridor Cardiovascular Exam: Present: regular rate, other (visible pulses of pacemaker noted) GI/Abdominal exam: Present: soft, normal bowel sounds. Absent: distended, tenderness, guarding, rebound, rigid Neurological exam: Present: alert, oriented X3, CN II-XII intact Psychiatric exam: Present: normal affect, normal mood <Arvin Vee - Last Filed: 08/21/18 05:36> Vital Signs 08/19/18 08/19/18 08/19/18 19:44 21:50 23:07 Temperature 97.5 F L Pulse Rate 56 L 52 L 50 L Respiratory 16 18 18 Rate Blood Pressure 156/80 125/65 128/70 O2 Sat by Pulse 98 97 97 Oximetry 08/20/18 08/20/18 08/20/18 01:35 04:27 06:56 Temperature Pulse Rate 51 L 57 L 50 L Respiratory 18 18 18 Rate Blood Pressure 123/69 126/70 127/60 O2 Sat by Pulse 97 99 98 Oximetry 08/20/18 08/20/18 10:00 12:47 Temperature 96.9 F L Pulse Rate 53 L 53 L Respiratory 21 18 Rate Blood Pressure 118/66 123/87 O2 Sat by Pulse 97 Oximetry EKG Findings - EKG Comments: EKG Findings:: EKG shows a ventricular paced rhythm with a ventricular rate of 56, SD interval 168, QRS duration 156, QTc 482 <Arvin Vee - Last Filed: 08/21/18 05:36> Medical Decision Making - Lab Data Result diagrams: 08/19/18 20:09 08/19/18 20:09 <Ras Newby - Last Filed: 08/19/18 23:39> - Lab Data Result diagrams: 08/19/18 20:09 08/19/18 20:09 <Arvin Vee - Last Filed: 08/21/18 05:36> - Medical Decision Making 68-year-old male with a past medical history of A. fib, CAD, COPD, GERD presents to the emergency department for pacemaker issues. This has been ongoing for 2 hours prior to presentation. He states this is placed in late 2015. He states today it started to vibrate in his chest. He also had some chest pain earlier in the day. Labs were unremarkable. Troponin negative. Chest x-ray did not show any acute changes. Initially interrogator was not able to be located by nursing staff. After interrogator was found report was sent to technologist. Multiple attempts were made to contact pacemaker company and resolve this issue. RN has charted all attempts made in time that these were made. Care was left with Dr. Newby pending results of interrogation from [employer]. (Arvin Vee) - Lab Data Lab Results 08/19/18 08/19/18 08/19/18 Range/Units 20:09 20:09 20:09 WBC 9.5 (3.8-10.6) k/uL RBC 5.27 (4.30-5.90) m/uL Hgb 16.2 (13.0-17.5) gm/dL Hct 48.3 (39.0-53.0) % MCV 91.5 (80.0-100.0) fL MCH 30.8 (25.0-35.0) pg MCHC 33.7 (31.0-37.0) g/dL RDW 13.4 (11.5-15.5) % Plt Count 269 (150-450) k/uL Neutrophils % 71 % Lymphocytes % 17 % Monocytes % 8 % Eosinophils % 1 % Basophils % 1 % Neutrophils # 6.7 (1.3-7.7) k/uL Lymphocytes # 1.6 (1.0-4.8) k/uL Monocytes # 0.8 (0-1.0) k/uL Eosinophils # 0.1 (0-0.7) k/uL Basophils # 0.1 (0-0.2) k/uL PT (9.0-12.0) sec INR (<1.2) APTT (22.0-30.0) sec Sodium 138 (137-145) mmol/L Potassium 4.7 (3.5-5.1) mmol/L Chloride 107 (98-107) mmol/L Carbon Dioxide 23 (22-30) mmol/L Anion Gap 8 mmol/L BUN 10 (9-20) mg/dL Creatinine 0.87 (0.66-1.25) mg/dL Est GFR (CKD-EPI)AfAm >90 (>60 ml/min/1.73 sqM) Est GFR (CKD-EPI)NonAf >90 (>60 ml/min/1.73 sqM) Glucose 101 H (74-99) mg/dL Calcium 9.5 (8.4-10.2) mg/dL Magnesium 1.9 (1.6-2.3) mg/dL Total Bilirubin 0.3 (0.2-1.3) mg/dL AST 25 (17-59) U/L ALT 40 (21-72) U/L Alkaline Phosphatase 90 (38-126) U/L Total Creatine Kinase 40 L (55-170) U/L CK-MB (CK-2) 0.9 (0.0-2.4) ng/mL CK-MB (CK-2) Rel Index 2.3 Troponin I <0.012 (0.000-0.034) ng/mL Total Protein 6.5 (6.3-8.2) g/dL Albumin 3.9 (3.5-5.0) g/dL 08/19/18 Range/Units 20:09 WBC (3.8-10.6) k/uL RBC (4.30-5.90) m/uL Hgb (13.0-17.5) gm/dL Hct (39.0-53.0) % MCV (80.0-100.0) fL MCH (25.0-35.0) pg MCHC (31.0-37.0) g/dL RDW (11.5-15.5) % Plt Count (150-450) k/uL Neutrophils % % Lymphocytes % % Monocytes % % Eosinophils % % Basophils % % Neutrophils # (1.3-7.7) k/uL Lymphocytes # (1.0-4.8) k/uL Monocytes # (0-1.0) k/uL Eosinophils # (0-0.7) k/uL Basophils # (0-0.2) k/uL PT 10.1 (9.0-12.0) sec INR 1.0 (<1.2) APTT 24.8 (22.0-30.0) sec Sodium (137-145) mmol/L Potassium (3.5-5.1) mmol/L Chloride (98-107) mmol/L Carbon Dioxide (22-30) mmol/L Anion Gap mmol/L BUN (9-20) mg/dL Creatinine (0.66-1.25) mg/dL Est GFR (CKD-EPI)AfAm (>60 ml/min/1.73 sqM) Est GFR (CKD-EPI)NonAf (>60 ml/min/1.73 sqM) Glucose (74-99) mg/dL Calcium (8.4-10.2) mg/dL Magnesium (1.6-2.3) mg/dL Total Bilirubin (0.2-1.3) mg/dL AST (17-59) U/L ALT (21-72) U/L Alkaline Phosphatase (38-126) U/L Total Creatine Kinase (55-170) U/L CK-MB (CK-2) (0.0-2.4) ng/mL CK-MB (CK-2) Rel Index Troponin I (0.000-0.034) ng/mL Total Protein (6.3-8.2) g/dL Albumin (3.5-5.0) g/dL Disposition Is patient prescribed a controlled substance at d/c from ED?: No <Ras Newby - Last Filed: 08/19/18 23:39> Is patient prescribed a controlled substance at d/c from ED?: No <Arvin Vee - Last Filed: 08/21/18 05:36> Clinical Impression: Pacemaker malfunction, Chest pain Disposition: ADMITTED IP TO THIS HOSP Condition: Fair
[2018-08-19] MEDS ORDERED: NITROGLYCERIN SL TABS 0.4 MG TAB SUBLINGUAL PRN (23:38)
[2018-08-19] MEDS ORDERED: ASPIRIN 81 MG PO STA (23:38)
[2018-08-20 02:30] LABS: Cholesterol 134 mg/dL (<200); HDL Cholesterol 47 mg/dL (40-60); LDL Cholesterol,Calculated 48 mg/dL (0-99); Triglycerides 193 mg/dL (<150)
[2018-08-20 02:48] LABS: Creatine Kinase 42 U/L (55-170)
[2018-08-20 03:01] LABS: Creatine Kinase MB 0.7 ng/mL (0.0-2.4); Troponin I <0.012 ng/mL (0.000-0.034)
[2018-08-20] MEDS ORDERED: ASPIRIN 325 MG TAB PO SCH (09:00)
[2018-08-20 10:31] LABS: Creatine Kinase 42 U/L (55-170)
[2018-08-20 10:44] LABS: Creatine Kinase MB 0.7 ng/mL (0.0-2.4); Troponin I <0.012 ng/mL (0.000-0.034)
[2018-08-20] MEDS ORDERED: IPRATROPIUM-ALBUTEROL 3 ML NEB INHALATION PRN (12:21)
[2018-08-20] MEDS: METOPROLOL TARTRATE 50 MG TAB PO SCH (12:46)
[2018-08-20] MEDS: CLOPIDOGREL 75 MG TAB PO SCH (12:46)
[2018-08-20] MEDS: GABAPENTIN 300 MG CAP PO SCH ×2 (12:47→21:05)
[2018-08-20] MEDS: FERROUS SULFATE 325 MG TAB PO SCH ×2 (12:47→21:05)
[2018-08-20] MEDS: predniSONE 5 MG TAB PO SCH (12:47)
[2018-08-20] MEDS: ISOSORBIDE MONONITRATE ER 30 MG TAB.ER.24H PO SCH (12:47)
[2018-08-20] MEDS: PANTOPRAZOLE 40 MG TABLET PO SCH (12:47)
[2018-08-20] MEDS: buPROPion SR 150 MG TABLET.ER PO SCH ×2 (12:47→21:05)
--- NOTE | 2018-08-20 13:10 | CONS ---
CONSULTATION Mr. Kingsley is a 68-year-old male with a known history of coronary artery disease who follows on a regular basis with Dr. Frank Falk who presented to the emergency room with symptoms of fluttering in the chest and he showed evidence of fluttering visually over the pacemaker. He has underwent a coronary artery bypass grafting in the past and he was in the hospital toward the end of June of this year, had an abnormal myocardial perfusion imaging and subsequently underwent cardiac catheterization and was found to have a totally occluded LAD proximally, patent stented segment of the proximal left circumflex, totally occluded right coronary artery with ipsilateral collaterals. Saphenous vein graft to the obtuse marginal branch was occluded, saphenous vein graft to the PLV was patent. There is about 40% stenosis in the body of the graft and the ZABALA to LAD was patent with intimal disease beyond the insertion point. The patient was at home. He has mild symptoms of chest discomfort, but yesterday he felt fluttering over the pacemaker and chest discomfort. He came into the emergency room and after interrogation of his device, there was evidence of pacemaker malfunction with ventricular lead noncapture probably because of a broken insulation. He was reprogrammed to an AAI. The patient is feeling well at this time. The pacemaker was performed in October 2016 after the patient had asystolic following cardiac catheterization. The patient still has some symptoms of chest discomfort on and off, but he continues to be active. He has some dyspnea on exertion. No syncope. No clear PND. No orthopnea. He has occasional peripheral edema. His echocardiogram during last admission revealed ejection fraction 45% to 50%. MEDICATIONS: His medications include prednisone, bupropion, Xarelto, MiraLAX, Lopressor 50 in the morning, 25 in the afternoon, lisinopril 2.5 mg daily, Plavix 75 mg daily, Lipitor 80 mg daily and Ventolin. Coronary risk factors are remarkable for hypertension and hyperlipidemia. He is a nonsmoker. REVIEW OF SYSTEMS: RESPIRATORY SYSTEM: He has mild chronic obstructive lung disease. No recent wheezing. GI SYSTEM: No recent GI bleed. No peptic ulcer disease. SYSTEM: No dysuria or hematuria. NERVOUS SYSTEM: No history of stroke or seizure. PHYSICAL EXAMINATION: He is a 68-year-old male, alert, oriented, in no apparent distress. Blood pressure 127/60 with the heart rate in the 60s. HEAD: Normocephalic. EYES: Sclerae anicteric. NECK: Good upstroke. No bruit. LUNGS: Clear to auscultation. HEART: Regular rate and rhythm. S1, S2. No S3 with systolic murmur. No diastolic murmur. No rub. Pacemaker site clean. ABDOMEN: Soft, nontender. EXTREMITIES: No edema. LAB DATA: Lab data revealed BUN and creatinine of 10 and 0.87, potassium 4.7. Troponin less than 0.012. Cholesterol 134 with an LDL of 48 and hemoglobin of 16.2. EKG revealed a sinus mechanism with a right bundle branch block and evidence of pacemaker spikes with no capture. IMPRESSION: 1. Pacemaker malfunction with noncapture of the ventricular lead, probably related to insulation fracture. The patient is reprogrammed with the ventricular lead off. 2. History of coronary artery disease, status post coronary artery bypass grafting with patent ZABALA and patent saphenous vein graft with no evidence of significant progression of disease. Medical therapy was recommended. 3. History of hypertension. 4. Hyperlipidemia. RECOMMENDATION: From the cardiac standpoint, the patient will be evaluated by Dr. Joaquin in regard to changing his ventricular lead. In the meantime we will continue present therapy. Depending on his progress, further recommendation will be made. Thank you for this consult. We will follow with you. MMODL / IJN: [id number] /
[2018-08-20] MEDS: ACETAMINOPHEN TAB 325 MG TAB PO PRN (13:17)
[2018-08-20] MEDS: RIVAROXABAN 15 MG TAB PO SCH (17:55)
[2018-08-20] MEDS: ATORVASTATIN 80 MG TAB PO SCH (21:05)
[2018-08-20] MEDS: METOPROLOL TARTRATE 25 MG TAB PO SCH (21:05)
--- NOTE | 2018-08-20 21:24 | HP ---
HISTORY AND PHYSICAL DATE OF ADMISSION: August 19, 2018. DATE OF SERVICE: August 20, 2018. PRESENT COMPLAINT: Palpitations. HISTORY OF PRESENTING COMPLAINT: This is a pleasant 68-year-old patient who was in the hospital just over 3 weeks ago. The patient then had presented with chest pain. Did have a stress test that was positive. The patient did undergo cardiac catheterization that showed blockage of one of the grafts. This was done by Dr. Frank Falk, his oil well shooter. The patient did have a temporary right cold leg but that resolved. The patient is also on Xarelto for paroxysmal atrial fibrillation. Other chronic stable conditions include GERD and chronic obstructive pulmonary disease. The patient's coronary artery disease has been stable otherwise. Yesterday was the patient's birthday. Had gone out with his . Suddenly felt his heart was having palpitations and he felt his chest was pumping and this lasted for a good 12 hours. The patient presented to the ER for the same. The patient is found to have a fracture of the ventricular lead and the patient's pacemaker is programmed without the same. The patient is seen by the oil well shooter, Dr. Estrada and he wants Dr. Joaquin to further address the issue. The patient is now asymptomatic. REVIEW OF SYSTEMS: CONSTITUTIONAL: Tired. HEENT: None. CARDIOVASCULAR: As above. GASTROINTESTINAL: Heartburn. GENITOURINARY none. MUSCULOSKELETAL: Pain in the lumbar joint. DERMATOLOGIC, HEMATOLOGIC, LYMPHATIC: None. PSYCHIATRY none. NEUROLOGICAL none. PAST MEDICAL HISTORY: Atrial fibrillation, coronary artery disease, COPD, GERD, osteoarthritis, ventral hernia, lumbar disc disease. PAST SURGICAL HISTORY: Coronary artery bypass, coronary artery stent, hernia repair, vasectomy in 1995, coronary artery bypass in 2004, bilateral cataracts, right knee arthroscopy, [employer] pacemaker, 3 stents to circumflex in November of 2016. SOCIAL HISTORY: Patient stopped smoking in March of 2016, smoked for about 48 years. Alcohol rarely. 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 Lives with significant other. FAMILY HISTORY: Of cancer. HOME MEDICATIONS: 1. Prednisone 5 mg a day. 2. Wellbutrin SR 50 mg b.i.d. 3. Xarelto 50 mg with supper. 4. MiraLAX 17 g p.o. q.h.s. p.r.n. 5. Protonix 40 mg a day. 6. Nitrostat 0.4 sublingual q.5 p.r.n. 7. Lopressor 50 mg in the morning, 25 in the evening. 8. Zestril 2.5 q.h.s. 9. DuoNeb t.i.d. p.r.n. 10.Neurontin 300 mg b.i.d. 11.Iron 325 p.o. b.i.d. 12.Plavix 75 mg a day. 13.Symbicort 160/4.5, 2 puffs b.i.d. 14.Lipitor 80 mg q.h.s. 15.Ventolin HFA 1 or 2 puffs b.i.d. p.r.n. ALLERGIES: IBUPROFEN. PHYSICAL EXAMINATION: VITAL SIGNS: Temperature 97.5, pulse 56, respirations 16, blood pressure 156/80, pulse ox 98% on room air on presentation. GENERAL APPEARANCE: Average built, sitting up, comfortable. EYES: Pupils are equal. Conjunctivae normal. HEENT: External appearance of nose and ears normal. Oral cavity normal. NECK: JVD not raised. Mass not palpable. RESPIRATORY: Effort normal. LUNGS: Decreased breath sounds. CARDIOVASCULAR: 1st and 2nd sounds normal. No edema. ABDOMEN: Soft, nontender. Liver and spleen not palpable. PSYCHIATRY: Alert and oriented x3. Mood and affect normal. NEUROLOGICAL: Pupils equal. Cranial nerves grossly intact. Power and sensation grossly intact. INVESTIGATIONS: EKG tracing personally reviewed by me shows a paced rhythm. Chest x-ray film personally reviewed by me shows some cardiomegaly, pacemaker, elevated right diaphragm. X-ray report is also reviewed. ASSESSMENT: 1. Episode of palpitations results pacemaker malfunction with noncapture of the ventricular lead, possibly from insulation fracture per Dr. Estrada's note but this is being reprogrammed with a ventricular lead off. 2. Coronary artery disease with prior bypass. 3. Chronic obstructive pulmonary disease in an ex-smoker. 4. Gastroesophageal reflux disease. 5. Paroxysmal atrial fibrillation chronically on Xarelto. PLAN: Home medications are resumed. The patient is seen by Cardiology, Dr. Estrada, Dr. Joaquin will be addressing the ventricular lead which is having the malfunction. Care was discussed with the patient and significant other. Questions were answered. The patient is being admitted to the hospital for the same. Copy to Dr. Emilia Bob. MMODL / IJN: [id number] /
[2018-08-20] MEDS: LISINOPRIL 2.5 MG TAB PO SCH (21:40)
[2018-08-20] MEDS: SYMBICORT 160-4.5 MCG INHALER INHALATION SCH (22:41)
[2018-08-21] MEDS: SYMBICORT 160-4.5 MCG INHALER INHALATION SCH ×2 (07:06→20:00)
[2018-08-21] MEDS: ISOSORBIDE MONONITRATE ER 30 MG TAB.ER.24H PO SCH (08:23)
[2018-08-21] MEDS: FERROUS SULFATE 325 MG TAB PO SCH ×2 (08:23→20:02)
[2018-08-21] MEDS: PANTOPRAZOLE 40 MG TABLET PO SCH (08:23)
[2018-08-21] MEDS: METOPROLOL TARTRATE 50 MG TAB PO SCH (08:23)
[2018-08-21] MEDS: GABAPENTIN 300 MG CAP PO SCH ×2 (08:23→20:02)
[2018-08-21] MEDS: CLOPIDOGREL 75 MG TAB PO SCH (08:24)
[2018-08-21] MEDS ORDERED: ceFAZolin 1,000 MG in SODIUM CHLORIDE 0.9% IRRIGATIO 250 ML IRRIGATION ONE ×2 (08:28→14:45)
[2018-08-21] MEDS ORDERED: SODIUM CHLORIDE 0.9% 1,000 ML IV SCH (08:30)
[2018-08-21] MEDS ORDERED: METOPROLOL TARTRATE 50 MG TAB PO SCH (09:00)
[2018-08-21] MEDS ORDERED: CLOPIDOGREL 75 MG TAB PO SCH (09:00)
[2018-08-21] MEDS: SODIUM CHLORIDE 0.9% 1,000 ML IV SCH (11:36)
[2018-08-21] MEDS: predniSONE 5 MG TAB PO SCH (11:44)
[2018-08-21] MEDS: buPROPion SR 150 MG TABLET.ER PO SCH ×2 (11:44→20:02)
[2018-08-21] MEDS ORDERED: ceFAZolin IN SWFI 2 GM/20 ML SYRINGE IVP STA (12:27)
[2018-08-21] MEDS ORDERED: IV FLUID CONTINUATION 950 ML IV ONE (12:30)
[2018-08-21] MEDS ORDERED: IOPAMIDOL-250 50ML BTL IV ONE (12:37)
[2018-08-21] MEDS ORDERED: LIDOCAINE 1% INJ 10MG/ML (20 ML MDV) ONE (12:42)
[2018-08-21] MEDS ORDERED: fentaNYL (PF) 50 MCG/ML 2 ML AMP ONE (12:47)
[2018-08-21] MEDS ORDERED: MIDAZOLAM 2 MG/2 ML VIAL ONE (12:47)
[2018-08-21] MEDS ORDERED: fentaNYL (PF) 50 MCG/ML 2 ML AMP IV ONE (12:51)
[2018-08-21] MEDS: MIDAZOLAM 2 MG/2 ML VIAL IV ONE ×2 (12:51→12:55)
[2018-08-21] MEDS ORDERED: LIDOCAINE 1% INJ 10MG/ML (20 ML MDV) SQ ONE (12:53)
--- NOTE | 2018-08-21 14:54 | P.PCN ---
Date of Procedure: 08/21/18 Preoperative Diagnosis: Right ventricular displacement and malfunction Postoperative Diagnosis: The same Procedure(s) Performed: Exposure of the existing generator, freeing of the leads, which are extensive adhesions, capping of the old ventricular lead and insertion of the new ventricular lead. Axillary venography Description of Procedure: HISTORY: This is a 68-year-old gentleman who had a permanent pacemaker implantation in October 2016 which was a dual-chamber pacemaker. Patient recently was seen in the emergency room with complaints of stimulation and excitement of the muscles with each pulse. He was noted to have pectoral muscle stimulation with ventricular pacing on the left side. Chest x-ray showed dislodgment of the lead laterally and also superiorly. Patient is advised that he could survive with atrial lead because patient doesn't have high degree AV block. However, patient requested replacement of ventricular lead. Patient and family were explained the risks and benefits of the procedure. CONSENT: I have discussed the risks and benefits as related to the above mentioned procedure and both sedation/analgesia as well as necessary blood product administration. The patient has indicated understanding and acceptance of the risks of the procedure discussed. PROCEDURE: Patient was brought to the lab in a fasting state. Patient was given IV Versed and fentanyl for sedation. The skin over the existing pulse generator was infiltrated with lidocaine. An incision was made in the skin and was deepened until the pectoral fascia was exposed. Hemostasis was obtained. The existing pulse generator was pulled out of the pocket. There were extensive adhesions of the lead with multiple loops. Careful releasing of the adhesions and freeing up the leads were performed. The leads were disconnected and were checked for thresholds. When ventricle lead was placed, there appeared to be significant pectoral muscles diminished on the left side. The lead appeared to be much more lateral and superior compared to the original position. This lead was capped and sutured to the floor. Subsequently a single axillary stick was performed using micro-axis needle and introducer was advanced in to superior vena cava. A ventricular lead was then advanced under fluoroscopy and was advanced to the right ventricle. Satisfactory position was obtained in the septal area and the lead was screwed in. Conscious Sedation: Versed 2 mg Fentanyl 50 g Duration 95 minutes THRESHOLDS: ATRIAL: The minimum patient threshold is 1.4 V at pulse width of 0.5. The impedance is 545 P-wave: 2.9 VENTRICULAR:. The minimum patient threshold is 0.6. The pulse width of 0.5 ms. The impedance is 905 ohms. R- wave: 16.2 THE LEADS: ATRIAL: This is manufactured by [employer]. Model number is 7741. The serial number is [id number]. VENTRICULAR: This is manufactured by [employer]. Model number is [id number]. Serial number is [id number] THE Capped ventricular lead: This is manufactured by [employer]. Model number is 7742. Serial number is [id number]. The leads were then connected to a new pulse generator. Pacemaker seems to function normally. The pocket was irrigated with antibiotics. The pocket was closed in the usual fashion. Pectoral fascia was closed with 2-0 Prolene, the subcutaneous tissue was closed with 3-0 Prolene and the skin was closed with 4- 0 Prolene. Patient tolerated the procedure well . Patient will be monitored on the telemetry unit for 2-3 hours. If stable patient be discharged home later today. PLAN: Patient will monitored on the telemetry unit. Prophylactic antibacterial be continued. Chest x-ray in the morning FALLOW UP:. Patient will have follow-up with LIDIA Falk in one week.
[2018-08-21] MEDS: RIVAROXABAN 15 MG TAB PO SCH (17:33)
[2018-08-21] MEDS: ceFAZolin IN SWFI 2 GM/20 ML SYRINGE IVP SCH ×2 (17:34→23:51)
[2018-08-21] MEDS: HYDROcodone/APAP 5-325MG 1 EACH TAB PO PRN ×2 (17:36→23:55)
[2018-08-21] MEDS: LISINOPRIL 2.5 MG TAB PO SCH (20:02)
[2018-08-21] MEDS: METOPROLOL TARTRATE 25 MG TAB PO SCH (20:02)
[2018-08-21] MEDS: ATORVASTATIN 80 MG TAB PO SCH (20:02)
[2018-08-22] MEDS: HYDROcodone/APAP 5-325MG 1 EACH TAB PO PRN ×5 (04:01→20:52)
[2018-08-22] MEDS: SODIUM CHLORIDE 0.9% 1,000 ML IV SCH (05:46)
[2018-08-22] MEDS: ceFAZolin IN SWFI 2 GM/20 ML SYRINGE IVP SCH ×2 (05:50→12:21)
[2018-08-22] MEDS: predniSONE 5 MG TAB PO SCH (08:19)
[2018-08-22] MEDS: buPROPion SR 150 MG TABLET.ER PO SCH ×2 (08:19→19:55)
[2018-08-22] MEDS: ISOSORBIDE MONONITRATE ER 30 MG TAB.ER.24H PO SCH (08:20)
[2018-08-22] MEDS: CLOPIDOGREL 75 MG TAB PO SCH (08:20)
[2018-08-22] MEDS: GABAPENTIN 300 MG CAP PO SCH ×2 (08:20→19:55)
[2018-08-22] MEDS: METOPROLOL TARTRATE 50 MG TAB PO SCH (08:20)
[2018-08-22] MEDS: FERROUS SULFATE 325 MG TAB PO SCH ×2 (08:20→19:55)
[2018-08-22] MEDS: PANTOPRAZOLE 40 MG TABLET PO SCH (08:20)
[2018-08-22] MEDS: SYMBICORT 160-4.5 MCG INHALER INHALATION SCH ×2 (08:23→19:05)
--- NOTE | 2018-08-22 09:44 | XR ---
EXAMINATION TYPE: XR chest 2V DATE OF EXAM: 08/22/2018 COMPARISON: 08/11/2018 HISTORY: Lead placement check TECHNIQUE: Frontal and lateral views of the chest are obtained. FINDINGS: There has been replacement of the dual lead left-sided cardiac device with a multilead lef t-sided cardiac device. The most anterior ventricular lead appears very peripheral at the left heart border although this appearance was seen on the prior of 08/19/2018. No new focal consolidation, pleural effusion or pneumothorax. Post CABG changes of the chest are note d. Cardiac size is mildly enlarged. Reticular opacities again suggest a degree of pulmonary fibrosis. IMPRESSION: New multiloculated left-sided cardiac device with the most anterior left ventricular catrachito d appearing at the peripheral cardiac margin although somewhat similar to the prior. No postprocedura l pneumothorax.
--- NOTE | 2018-08-22 12:12 | PN ---
PROGRESS NOTE This patient was admitted with abnormal functioning of the pacemaker and left pectoral muscle stimulation. The patient underwent a new ventricular lead was placed in. He is doing well. He is having mild left precordial chest discomfort. Pacemaker is working normally. Blood pressure is 109/71 mmHg. First and second heart sounds are heard. Lungs are clear to auscultation and percussion. Chest x-ray is normal. Patient's pacemaker was checked today and the new ventricular lead is working normally. We will obtain echo and Doppler study. Patient will be ambulated and the patient will be discharged home tomorrow. MMODL / IJN: [id number] /
--- NOTE | 2018-08-22 14:44 | ECHOF ---
Referral Reason:Chest pain and cardiomyopathy MEASUREMENTS -------- HEIGHT: 165.1 cm WEIGHT: 78.0 kg BP: 112/61 IVSd: 1.1 cm (0.6 - 1.1) LVIDd: 5.1 cm (3.9 - 5.3) LVPWd: 1.0 cm (0.6 - 1.1) EDV(Teich): 126 ml IVSs: 1.5 cm LVIDs: 3.0 cm LVPWs: 1.3 cm %IVS Thck: 39 % ESV(Teich): 35 ml EF(Teich): 72 % %FS: 42 % SV(Teich): 91 ml LA Diam: 3.5 cm (2.7 - 3.8) RVIDd: 2.9 cm (< 3.3) LALs A4C: 4.7 cm LAAs A4C: 14.9 cm LAESV A-L A4C: 40 ml LAESV MOD A4C: 40 ml LALs A2C: 4.7 cm LAAs A2C: 15.6 cm LAESV A-L A2C: 44 ml LAESV MOD A2C: 42 ml LAESV(A-L): 42 ml LAESV Index (A-L): 22.62 ml/m Ao Diam: 3.5 cm (2.0 - 3.7) AV Cusp: 2.5 cm (1.5 - 2.6) EPSS: 0.2 cm MV E Jose: 0.89 m/s MV DecT: 225 ms MV Dec Mayes: 4.0 m/s MV A Jose: 0.66 m/s MV E/A Ratio: 1.34 MV PHT: 65 ms AV Vmax: 1.40 m/s AV maxP.80 mmHg TR Vmax: 2.38 m/s TR maxP.65 mmHg RAP: 5.00 mmHg RVSP: 27.65 mmHg MV EF SLOPE: 63.33 mm/s (70 - 150) MV EXCURSION: 20.50 mm (> 18.000) FINDINGS -------- Sinus rhythm. This was a technically good study. The left ventricular size is normal. There is borderline concentric left ventricular hypertrophy. Overall left ventricular systolic function is normal with, an EF between 55 - 60 %. The right ventricle is normal in size. Normal LA size by volume 22+/-6 ml/m2. The right atrium is normal in size. There is mild aortic valve sclerosis. Mild mitral annular calcification present. Mild tricuspid regurgitation present. Right ventricular systolic pressure is normal at < 35 mmHg. Trace/mild (physiologic) pulmonic regurgitation. The aortic root size is normal. Normal inferior vena cava with normal inspiratory collapse consistent with estimated right atrial pre ssure of 5 mmHg. There is no pericardial effusion. CONCLUSIONS -------- 1. Sinus rhythm. 2. This was a technically good study. 3. The left ventricular size is normal. 4. There is borderline concentric left ventricular hypertrophy. 5. Overall left ventricular systolic function is normal with, an EF between 55 - 60 %. 6. The right ventricle is normal in size. 7. Normal LA size by volume 22+/-6 ml/m2. 8. The right atrium is normal in size. 9. There is mild aortic valve sclerosis. 10. Mild mitral annular calcification present. 11. Mild tricuspid regurgitation present. 12. Right ventricular systolic pressure is normal at < 35 mmHg. 13. Trace/mild (physiologic) pulmonic regurgitation. 14. The aortic root size is normal. 15. Normal inferior vena cava with normal inspiratory collapse consistent with estimated right atrial pressure of 5 mmHg. 16. There is no pericardial effusion. GREENS KEEPER: Jennie Garza RDCS
[2018-08-22] MEDS: RIVAROXABAN 15 MG TAB PO SCH (17:47)
--- NOTE | 2018-08-22 18:39 | PN ---
PROGRESS NOTE DATE OF SERVICE: 08/22/2018. PRESENTING COMPLAINT: Palpitations. INTERVAL HISTORY: The patient presented with ventricular lead fracture that was replaced by Dr. Joaquin. Feeling better today. A bit tired. Lying in bed. No new issues. REVIEW OF SYSTEMS: Done for constitutional, cardiovascular, GI, pulmonary; relevant findings as above. CURRENT MEDICATIONS: Reviewed. PHYSICAL EXAMINATION: VITAL SIGNS: Temperature 98.1, pulse 54, respiratory 18, blood pressure 103/57, pulse ox 95% on room air. GENERAL: Lying in bed, comfortable. EYES: Pupils equal. Conjunctivae normal. NECK: JVD not raised. Mass not palpable. RESPIRATORY: Effort normal. LUNGS: Decreased breath sounds. CARDIOVASCULAR: 1st and 2nd sounds normal. No edema. ABDOMEN: Soft, nontender. Liver and spleen not palpable. EXTREMITIES: Left arm in a sling. INVESTIGATIONS: Troponins are negative. ASSESSMENT: 1. Pacemaker malfunction due to ventricular rate fracture that was corrected. 2. Coronary artery disease with prior bypass. 3. Chronic obstructive pulmonary disease in an ex-smoker. 4. Gastroesophageal reflux disease. 5. Paroxysmal atrial fibrillation chronically on Xarelto. PLAN: Continue current medication and treatment plan. Care was discussed with the patient. Discharge as per Cardiology. MMODL / IJN: [id number] /
[2018-08-22] MEDS: ACETAMINOPHEN TAB 325 MG TAB PO PRN (19:54)
[2018-08-22] MEDS: LISINOPRIL 2.5 MG TAB PO SCH (19:55)
[2018-08-22] MEDS: ATORVASTATIN 80 MG TAB PO SCH (19:55)
[2018-08-22] MEDS: METOPROLOL TARTRATE 25 MG TAB PO SCH (19:55)
[2018-08-23] MEDS: HYDROcodone/APAP 5-325MG 1 EACH TAB PO PRN ×4 (00:43→20:21)
[2018-08-23] MEDS: SODIUM CHLORIDE 0.9% 1,000 ML IV SCH ×2 (03:48→20:24)
[2018-08-23] MEDS ORDERED: KETOROLAC 30 MG/ML 1 ML VIAL IVP STA (03:59)
[2018-08-23] MEDS: GABAPENTIN 300 MG CAP PO SCH ×2 (08:25→20:21)
[2018-08-23] MEDS: METOPROLOL TARTRATE 50 MG TAB PO SCH (08:27)
[2018-08-23] MEDS: PANTOPRAZOLE 40 MG TABLET PO SCH (08:27)
[2018-08-23] MEDS: CLOPIDOGREL 75 MG TAB PO SCH (08:27)
[2018-08-23] MEDS: buPROPion SR 150 MG TABLET.ER PO SCH ×2 (08:27→20:21)
[2018-08-23] MEDS: ISOSORBIDE MONONITRATE ER 30 MG TAB.ER.24H PO SCH (08:27)
[2018-08-23] MEDS: predniSONE 5 MG TAB PO SCH (08:27)
[2018-08-23] MEDS: FERROUS SULFATE 325 MG TAB PO SCH ×2 (08:27→20:21)
[2018-08-23] MEDS: SYMBICORT 160-4.5 MCG INHALER INHALATION SCH ×2 (11:22→20:03)
[2018-08-23] MEDS ORDERED: KETAMINE 10 MG/ML 20 ML VIAL ONE (15:59)
[2018-08-23] MEDS ORDERED: MIDAZOLAM 2 MG/2 ML VIAL ONE (15:59)
[2018-08-23] MEDS ORDERED: GLYCOPYRROLATE 0.2 MG/ML 2 ML VIAL ONE (15:59)
[2018-08-23] MEDS ORDERED: LIDOCAINE 1% INJ 10MG/ML (20 ML MDV) ONE (15:59)
[2018-08-23] MEDS ORDERED: PHENYLEPHRINE-0.9% NACL SYG 1 MG/10 ML SYRINGE ONE (15:59)
[2018-08-23] MEDS ORDERED: fentaNYL (PF) 50 MCG/ML 2 ML AMP ONE (15:59)
[2018-08-23] MEDS ORDERED: LACTATED RINGERS 1,000 ML IV ONE (15:59)
[2018-08-23] MEDS ORDERED: PROPOFOL 10 MG/ML 20 ML VIAL IV ONE (15:59)
[2018-08-23] MEDS ORDERED: SODIUM CHLORIDE 0.9% 50 ML with ceFAZolin 1,000 MG IV ONE ×2 (16:05)
[2018-08-23] MEDS ORDERED: LIDOCAINE 1% INJ 10MG/ML (20 ML MDV) SQ ONE (16:10)
[2018-08-23] MEDS: METOPROLOL TARTRATE 25 MG TAB PO SCH (20:21)
[2018-08-23] MEDS: LISINOPRIL 2.5 MG TAB PO SCH (20:21)
[2018-08-23] MEDS: ATORVASTATIN 80 MG TAB PO SCH (20:21)
--- NOTE | 2018-08-23 21:37 | CONS ---
DATE OF CONSULTATION: 08/23/2018 HISTORY: This is a 68-year-old gentleman who has been admitted with fracture of the ventricular lead. The patient was taken to the operating room by Dr. Joaquin and the patient had placement of the new lead. The patient has been on Xarelto, which has been stopped. He developed a large hematoma of the chest wall. I was called in this morning for evaluation. The patient had a large hematoma on the anterior chest wall with oozing from the incision site. Discussed with Dr. Fernando Hankins and we will take the patient to the OR for evacuation of the hematoma. MEDICAL HISTORY: 1. History of coronary artery disease with prior bypass. 2. Chronic obstructive pulmonary disease. 3. Gastroesophageal reflux. 4. Paroxysmal atrial fibrillation. PHYSICAL EXAMINATION: Patient was seen in his room. Neck is supple. Chest is clear. Patient had a large hematoma of the anterior chest wall and there was some oozing of blood from the incision site. Some ecchymosis of the chest wall. Abdomen is soft, nontender. Femoral pulses are present. IMPRESSION: Large hematoma anterior chest wall, post pacemaker placement. PLAN: Evacuation of the hematoma. Risks and complications discussed with the patient. MMODL / IJN: [id number] / MTDD
--- NOTE | 2018-08-23 21:43 | PN ---
PROGRESS NOTE DATE OF SERVICE: 08/23/2018 PRESENT COMPLAINT: Hematoma. INTERVAL HISTORY: Patient presented with ventricular lead fracture of the pacemaker that was placed by Dr. Joaquin. This morning he was informed that the patient has hematoma that will be evacuated later this afternoon. The patient is lying in bed, comfortable. Some discomfort at the site. Family is present. REVIEW OF SYSTEMS: Done for constitutional, cardiovascular, GI, pulmonary; relevant findings as above. CURRENT MEDICATIONS: Reviewed. PHYSICAL EXAMINATION: VITAL SIGNS: Temperature 98.2, pulse 57, respirations 16, blood pressure 114/65, pulse ox 94 percent. GENERAL APPEARANCE: Lying in bed, comfortable. Awake. EYES: Pupils equal. Conjunctivae normal. NECK: JVD unable to assess. . Mass not palpable. Chest wall: Dressing over infraclavicular area. RESPIRATORY effort normal. LUNGS: Decreased breath sounds. CARDIOVASCULAR: 1st and 2nd sounds. No edema. ABDOMEN: Soft, nontender. Liver and spleen not palpable. PSYCHIATRY: Alert and oriented x3. Mood and affect normal. INVESTIGATIONS: No blood work today. ASSESSMENT: 1. Acute hematoma formed at the pacemaker site. 2. Pacemaker malfunction due to ventricular lead fracture that was repaired. 3. Coronary artery disease with prior bypass. 4. Chronic obstructive pulmonary disease in an ex-smoker. 5. Gastroesophageal reflux disease. 6. Paroxysmal atrial fibrillation chronically on Xarelto. PLAN: The patient is due for hematoma removal at this point. Xarelto of course has been held. Care was discussed with the patient and . Follow. MMODL / IJN: [id number] /
--- NOTE | 2018-08-23 22:43 | CONS ---
CONSULTATION HISTORY: This patient is status post pacemaker placement. The patient had a new ventricular lead placed and patient was having intermittent pain in the left pectoral area last night. There was some drainage from the wound. The patient is afebrile. Heart rate is 70 per minute, blood pressure is 132/90 mmHg. There is evidence of in the left pectoral area. We will request a consult with Dr. Morris for further evaluation. The patient may need evaluation of the hematoma. This was discussed with the patient. MMODL / IJN: [id number] /
--- NOTE | 2018-08-23 22:55 | PN ---
PROGRESS NOTE DATE OF SERVICE: 08/21/2018 PRESENTING COMPLAINT: Fracture. INTERVAL HISTORY: This patient presented for palpitations found to have a fractured ventricular lead. This was repaired earlier in the day today. Patient is lying in bed, the left arm in a sling. Breathing is stable. No nausea, vomiting. No chest pain. REVIEW OF SYSTEMS: Done for constitutional, cardiovascular, GI, pulmonary; relevant findings as above. CURRENT MEDICATIONS: Reviewed. PHYSICAL EXAMINATION: VITAL SIGNS: Temperature 97.8, pulse 50, respiration 15, blood pressure 105/61, pulse ox 92 percent on room air. GENERAL: Lying in bed, comfortable. EYES: Pupils equal. Conjunctivae normal. NECK: JVD not raised. Mass not palpable. RESPIRATORY: Effort normal. LUNGS: Decreased breath sounds. CARDIOVASCULAR: 1st and 2nd sounds normal. No edema. ABDOMEN: Soft, nontender. Liver and spleen not palpable. MUSCULOSKELETAL: Left arm in a sling with dressing over the left inferior clavicle area. PSYCHIATRY: Alert and oriented x3. Mood and affect normal. INVESTIGATIONS: No blood work from today. ASSESSMENT: 1. Episode of palpitation. 2. Ventricular lead fracture causing pacemaker malfunction that was corrected today. 3. Coronary artery disease prior bypass. 4. Chronic obstructive pulmonary disease in an ex-smoker. 5. Gastroesophageal reflux disease. 6. Paroxysmal atrial fibrillation for which patient chronically takes Xarelto. PLAN: Continue medication and treatment plan. Dressing over the . This patient was seen by me on August 21, 2018. I am doing the note today. MMODL / IJN: [id number] /
--- NOTE | 2018-08-23 22:58 | PN ---
PROGRESS NOTE HISTORY: This patient was admitted with primarily epigastric pain. Patient had a mild . Patient is going for . Discharged home. Advised to continue . MMODL / IJN: [id number] /
--- NOTE | 2018-08-23 23:19 | PCN ---
PROCEDURE NOTE PREOPERATIVE DIAGNOSIS: Hematoma left chest wall post pacemaker placement. PROCEDURE PERFORMED: Evacuation of hematoma and control of bleeding. DESCRIPTION OF PROCEDURE: This patient was seen on consultation post pacemaker placement. Patient has been on Xarelto in the past. There was a large hematoma noted on the anterior chest wall. There was some oozing from the incision site. The patient was brought to the operating room and left side of the chest was prepped and draped in usual sterile manner. Under local IV sedation, lidocaine lidocaine was infiltrated in the incision area and the incision was opened and found there was a large hematoma with a lot of blood clots which were removed. After that, there was some oozing from the tissue which was also electrocoagulated. At this point, the wound was copiously irrigated with hydrogen peroxide and saline. No active bleeding was noted and the skin was closed in 2 layers. The subcu tissue was closed with 3-0 Vicryl interrupted suture and skin closed subcuticularly. After that we a placed a Prevena suction device on the chest wall because there was some oozing from the skin incision site. The patient was transferred to the recovery in satisfactory condition. MMODL / IJN: [id number] /
[2018-08-24] MEDS: ACETAMINOPHEN TAB 325 MG TAB PO PRN (00:21)
[2018-08-24] MEDS: PANTOPRAZOLE 40 MG TABLET PO SCH (06:38)
[2018-08-24] MEDS: SYMBICORT 160-4.5 MCG INHALER INHALATION SCH ×2 (08:32→20:54)
[2018-08-24] MEDS: FERROUS SULFATE 325 MG TAB PO SCH ×2 (08:39→20:50)
[2018-08-24] MEDS: HYDROcodone/APAP 5-325MG 1 EACH TAB PO PRN ×3 (08:39→20:50)
[2018-08-24] MEDS: METOPROLOL TARTRATE 50 MG TAB PO SCH (08:40)
[2018-08-24] MEDS: ISOSORBIDE MONONITRATE ER 30 MG TAB.ER.24H PO SCH (08:40)
[2018-08-24] MEDS: CLOPIDOGREL 75 MG TAB PO SCH ×2 (08:40→10:50)
[2018-08-24] MEDS: buPROPion SR 150 MG TABLET.ER PO SCH ×2 (08:40→21:31)
[2018-08-24] MEDS: GABAPENTIN 300 MG CAP PO SCH ×2 (08:40→20:50)
[2018-08-24] MEDS: predniSONE 5 MG TAB PO SCH (10:54)
[2018-08-24 12:27] LABS: HCT 36.9 % (39.0-53.0); MCH 30.2 pg (25.0-35.0); MCHC 32.9 g/dL (31.0-37.0); MCV 91.9 fL (80.0-100.0); Mean Platelet Volume 7.1; Platelet Count 205 k/uL (150-450); RBC 4.02 m/uL (4.30-5.90); RDW 13.3 % (11.5-15.5); WBC 13.6 k/uL (3.8-10.6)
[2018-08-24 12:33] LABS: ALT 25 U/L (21-72); AST 18 U/L (17-59); Albumin 2.7 g/dL (3.5-5.0); Alkaline Phosphatase 64 U/L (38-126); Anion Gap 5 mmol/L; Blood Urea Nitrogen 18 mg/dL (9-20); Calcium 8.2 mg/dL (8.4-10.2); Carbon Dioxide 24 mmol/L (22-30); Chloride 104 mmol/L (98-107); Glucose 68 mg/dL (74-99); HGB 12.1 gm/dL (13.0-17.5); Potassium 4.3 mmol/L (3.5-5.1); Sodium 133 mmol/L (137-145); Total Bilirubin 0.5 mg/dL (0.2-1.3)
--- NOTE | 2018-08-24 14:51 | P.PN ---
Subjective Progress Note Date: 08/24/18 This is a 68-year-old gentleman with known history of coronary artery disease who follows with Dr. Tonja Falk in the office. He presented to the emergency room with symptoms of fluttering in his chest, and he said showed evidence of chest wall fluttering over his pacemaker site. He has underwent coronary artery bypass grafting surgery in the past, and he was in the hospital towards the end of June of this year, had an abnormal myocardial perfusion imaging and subsequently underwent cardiac catheterization. He was found at that time to have a totally occluded LAD proximally, patent stent of the proximal circumflex, totally occluded right coronary artery with ipsilateral collaterals. Saphenous vein graft to the obtuse marginal branch was occluded, saphenous vein graft to the PLV was patent, there is about a 40% stenosis in the body of the graft and the ZABALA to the LAD was patent with intimal disease be on the insertion point. He presented to the hospital on this occasion with symptoms of mild chest discomfort, mostly fluttering over his device. His pacemaker was then interrogated and showed malfunction with no ventricular lead capture because of a broken insulation. He was programmed at that time to AAI. Patient had a pacemaker placed in October [address] Tonja Falk after having asystole following his cardiac catheterization. Subsequent to his admission here patient did undergo exposure of the existing generator, freeing of the leads, which showed extensive adhesions, capping off the old ventricular lead and insertion of a new ventricular lead by Dr. Joaquin. Patient then developed significant hematoma and bleeding at the site. This reason a consultation was requested with Dr. Morris. He performed evacuation of the hematoma and control of the bleeding, there continues to be a drain in place and time. Blood pressure 100/60 with a heart rate in the 60s 91% on room air. Patient was running fevers through the night of up to 102. He's been afebrile today. White blood cell count 13.6, hemoglobin 12.1, platelet count 205. Sodium 133, potassium 4.3, BUN 18, creatinine 0.8. Patient was seen and examined today and overall is feeling well. Dr. Joaquin did have a discussion with the patient today explaining that the original device lead will need to be extracted because it is in inappropriate position. Objective - Vital Signs Vital signs: Vital Signs Temp 97.7 F 12/03/18 10:55 Pulse 67 08/24/18 10:55 Resp 16 08/24/18 10:58 BP 100/61 08/24/18 10:55 Pulse Ox 91 L 08/24/18 10:55 Intake & Output 08/23/18 08/24/18 08/24/18 18:59 06:59 18:59 Intake Total 930 430 480 Output Total 20 1 Balance 910 429 480 Weight 77.1 kg Intake: IV 450 Intake, IV Titration 400 Amount Sodium Chloride 0.9% 1, 400 000 ml @ 50 mls/hr IV . Q20H RODNEY Rx#:[id number] Oral 480 30 480 Output: Urine 1 Estimated Blood Loss 20 Other: Voiding Method Toilet Urinal Urinal # Voids 1 - Exam PHYSICAL EXAMINATION: GENERAL: 68 year old gentleman in no acute distress at the time of my examination HEENT: Head is atraumatic, normocephalic. Pupils equal, round. Sclera anicteric. Conjunctiva are clear. Mucous membranes of the mouth are moist. Neck is supple. There is no elevated jugular venous pressure.] bruit is heard. HEART EXAMINATION: Heart S1, S2 normal. No murmur or gallop heard. Dressing in place to chest wall at site of pacemaker implantation CHEST EXAMINATION: Lungs are clear to auscultation and precussion. No chest wall tenderness is noted on palpation or with deep breathing. ABDOMEN: Soft, nontender. Bowel sounds are heard. No organomegaly noted. EXTREMITIES: 2+ peripheral pulses with no evidence of peripheral edema and no calf tenderness noted. NEUROLOGIC patient is awake, alert and oriented ?-3. . - Labs CBC & Chem 7: 08/24/18 11:06 08/24/18 11:06 Labs: Abnormal Lab Results - Last 24 Hours (Table) 08/24/18 08/24/18 Range/Units 11:06 11:06 WBC 13.6 H (3.8-10.6) k/uL RBC 4.02 L (4.30-5.90) m/uL Hgb 12.1 L D (13.0-17.5) gm/dL Hct 36.9 L (39.0-53.0) % Sodium 133 L (137-145) mmol/L Glucose 68 L (74-99) mg/dL Calcium 8.2 L (8.4-10.2) mg/dL Total Protein 5.0 L (6.3-8.2) g/dL Albumin 2.7 L (3.5-5.0) g/dL Assessment and Plan Plan: Assessment and plan #1 pacemaker malfunction with non-capture of the ventricular lead. Status post placement of a new ventricular lead. Patient also developed hematoma and underwent evacuation of hematoma. #2 history of prior pacemaker implantation #3 fever, on antibiotics #4 known history of coronary artery disease and prior bypass surgery #5 hypertension #6 hyperlipidemia Plan Continue current IV antibiotics. Continue to monitor for any further fevers. Plan is to possibly discharged patient home in the morning. He was advised that as an outpatient he will need to undergo removal of the initial ventricular lead as it is improperly positioned. This will be done as an outpatient. DNP note has been reviewed, I agree with a documented findings and plan of care. Patient was seen and examined.
[2018-08-24] MEDS: SODIUM CHLORIDE 0.9% 1,000 ML IV SCH (16:57)
[2018-08-24] MEDS: ATORVASTATIN 80 MG TAB PO SCH (20:50)
[2018-08-24] MEDS: LISINOPRIL 2.5 MG TAB PO SCH (20:50)
[2018-08-24] MEDS: METOPROLOL TARTRATE 25 MG TAB PO SCH (20:50)
[2018-08-24] MEDS: ceFAZolin 1,000 MG in DEXTROSE/WATER 1 50ML.BAG IVPB SCH (23:18)
--- NOTE | 2018-08-24 23:46 | PN ---
PROGRESS NOTE DATE OF SERVICE: 08/24/2018 PRESENTING COMPLAINT: Tired. INTERVAL HISTORY: This patient presented with ventricular lead fracture of the pacemaker that was replaced by Dr. Joaquin. The patient subsequently developed hematoma at this site. That was evacuated yesterday. A large hematoma was removed, dressing of the same. Patient did spike fevers early hours of the morning. Sitting up. REVIEW OF SYSTEMS: Review of systems done for constitutional, cardiovascular, GI, pulmonary; relevant findings as above. CURRENT MEDICATIONS: Reviewed. PHYSICAL EXAMINATION: VITAL SIGNS: T-max 102 around midnight and 101.8 at 1:20 am in the morning. Afebrile since then. Pulse 66, respiration 18, blood pressure 109/67, pulse ox 95% on room air. GENERAL APPEARANCE: Sitting up, comfortable. Eyes: Pupils equal. Conjunctivae normal. NECK: JVD not raised. Mass not palpable. RESPIRATORY: Effort normal. LUNGS: Decreased breath sounds. Chest wall dressing over the infraclavicular area. PSYCHIATRY: Alert and oriented x3. Mood and affect is normal. ABDOMEN: Soft, nontender. Liver and spleen not palpable. INVESTIGATIONS: White count 13.6, hemoglobin 12.1, potassium 4.3. ASSESSMENT: 1. Acute hematoma formed at the pacemaker insertion site, evacuated, large hematoma was evacuated. 2. Episode of fever last night, could be reactive. At the same time, given intervention and breakdown of integrity of the skin, need to be covered with antibiotics. 3. Patient has a pacemaker malfunction due to ventricular lead that was replaced. 4. Coronary artery disease with prior bypass. 5. Chronic obstructive pulmonary disease in an ex-smoker. 6. Gastroesophageal reflux disease. 7. Paroxysmal atrial fibrillation chronically on Xarelto. PLAN: I do not see any antibiotics right now. We will start the same in the form of Ancef. Follow. MMODL / IJN: [id number] /
[2018-08-25] MEDS: ceFAZolin 1,000 MG in DEXTROSE/WATER 1 50ML.BAG IVPB SCH ×4 (05:59→20:22)
[2018-08-25] MEDS: PANTOPRAZOLE 40 MG TABLET PO SCH (06:00)
[2018-08-25] MEDS: HYDROcodone/APAP 5-325MG 1 EACH TAB PO PRN ×2 (06:05→21:41)
[2018-08-25 06:22] LABS: Basophils % (A) 0 %; Eosinophils # (A) 0.1 k/uL (0-0.7); Eosinophils % (A) 1 %; HCT 37.1 % (39.0-53.0); HGB 12.3 gm/dL (13.0-17.5); Lymphocytes # (A) 1.4 k/uL (1.0-4.8); Lymphocytes % (A) 16 %; MCH 30.4 pg (25.0-35.0); MCHC 33.1 g/dL (31.0-37.0); MCV 91.9 fL (80.0-100.0); Mean Platelet Volume 6.8; Monocytes # (A) 0.7 k/uL (0-1.0); Monocytes % (A) 8 %; Neutrophils # (A) 6.2 k/uL (1.3-7.7); Neutrophils % (A) 72 %; Platelet Count 187 k/uL (150-450); RBC 4.04 m/uL (4.30-5.90); RDW 13.3 % (11.5-15.5); WBC 8.5 k/uL (3.8-10.6)
[2018-08-25] MEDS: SYMBICORT 160-4.5 MCG INHALER INHALATION SCH ×2 (08:13→20:32)
[2018-08-25] MEDS: METOPROLOL TARTRATE 50 MG TAB PO SCH (08:37)
[2018-08-25] MEDS: predniSONE 5 MG TAB PO SCH (08:37)
[2018-08-25] MEDS: buPROPion SR 150 MG TABLET.ER PO SCH ×2 (08:37→21:41)
[2018-08-25] MEDS: FERROUS SULFATE 325 MG TAB PO SCH ×2 (08:37→20:22)
[2018-08-25] MEDS: ISOSORBIDE MONONITRATE ER 30 MG TAB.ER.24H PO SCH (08:37)
[2018-08-25] MEDS: GABAPENTIN 300 MG CAP PO SCH ×2 (08:37→20:22)
--- NOTE | 2018-08-25 10:25 | P.GSCN ---
History of Present Illness Consult date: 08/25/18 Reason for Consult: Possible pacemaker lead perforation, surgical recommendations. Requesting physician: Jacqueline Joaquin History of present illness: This is a 68-year-old active gentleman who follows with Dr. Emilia Bob on an outpatient basis. He has a previous medical history of coronary artery disease status post three-vessel CABG in 2004, paroxysmal atrial fibrillation currently on Xarelto for anticoagulation, asystole after heart catheterization requiring dual-chamber [employer] pacemaker placement in 2016, coronary stent placement in 2015 and 2017, previous [id number] smoking history with cessation approximately 2-1/2 years ago, COPD, occasional EtOH use, GERD, and osteoarthritis. He presented to [facility] emergency room with complaints of fluttering in his left chest wall over his pacemaker site. His pacemaker was interrogated and noted to be malfunctioning likely from fractured ventricular lead. Other than this fluttering he did have some pain in the left side of his chest, however he denied any other symptoms. He was admitted for monitoring. He was taken to [facility] on August [address] Joaquin and a new ventricular lead was placed. The old ventricular lead was capped and left in place. Subsequently the patient developed a hematoma of his pacemaker site which was evacuated by Dr. Sidhu with a drain left in place. Dr. Mcgrath was consulted regarding recommendations for extraction of the old ventricular lead. Review of Systems Review of systems was completed and was negative except as noted. - Cardiovascular Reports as per HPI, Reports chest pain Past Medical History Past Medical History: Atrial Fibrillation, Coronary Artery Disease (CAD), COPD, GERD/Reflux, Osteoarthritis (OA), Pneumonia, Respiratory Disorder Additional Past Medical History / Comment(s): small hiatal hernia, hx anemia, ventral hernia, lumbar disk disorder, History of Any Multi-Drug Resistant Organisms: None Reported Past Surgical History: Coronary Bypass/CABG, Heart Catheterization, Heart Catheterization With Stent, Hernia Repair, Orthopedic Surgery, Pacemaker Additional Past Surgical History / Comment(s): Vasectomy 1995, CABG 2004, KELLY CATARACT, VASECTOMY, BONE INFUSION MIDDLE LT FINGER CRUSHING INJURY 1988, rt knee arthroscopy, [employer] pacemaker placed, 11/04/16, 3 stents to Circ 12/16/16, ventricular lead replacement 08/21/2018, hematoma evacuation from pacemaker site 08/23/2018 Past Anesthesia/Blood Transfusion Reactions: No Reported Reaction Date of Last Stent Placement:: 12/16/16 Type of Cardiac Device: Permanent Pacemaker Device Placement Date:: 11/04/16 Past Psychological History: No Psychological Hx Reported Smoking Status: Former smoker Past Alcohol Use History: Rare Past Drug Use History: None Reported - Past Family History Father Family Medical History: Cancer Additional Family Medical History / Comment(s): . Mother Family Medical History: Coronary Artery Disease (CAD) Additional Family Medical History / Comment(s): HEART PROBLEMS Medications and Allergies Home Medications Medication Instructions Recorded Confirmed Type Gabapentin [Neurontin] 300 mg PO BID 10/08/14 08/19/18 History Nitroglycerin Sl Tabs [Nitrostat] 0.4 mg SUBLINGUAL Q5M PRN 10/08/14 08/19/18 History Ferrous Sulfate [Iron (65 MG 325 mg PO BID 09/03/16 08/19/18 History Elemental)] Atorvastatin [Lipitor] 80 mg PO HS #90 tab 09/07/16 08/19/18 Rx Clopidogrel [Plavix] 75 mg PO DAILY #90 tab 09/07/16 08/19/18 Rx Polyethylene Glycol 3350 [Miralax] 17 gm PO HS PRN 10/30/16 08/19/18 History Acetaminophen Tab [Tylenol] 650 mg PO Q6H PRN 07/19/18 08/19/18 History Albuterol Inhaler [Ventolin Hfa 1 - 2 puff INHALATION RT-BID PRN 07/19/18 History Inhaler] Budesonide/Formoterol Fumarate 2 puff INHALATION RT-BID 07/19/18 08/19/18 History [Symbicort 160-4.5 Mcg Inhaler] Ipratropium-Albuterol Nebulize 3 ml INHALATION RT-TID PRN 07/19/18 08/19/18 History [Duoneb 0.5 mg-3 mg/3 ml Soln] Metoprolol Tartrate [Lopressor] 25 mg PO HS 07/19/18 08/19/18 History Metoprolol Tartrate [Lopressor] 50 mg PO QAM 07/19/18 08/19/18 History Rivaroxaban [Xarelto] 15 mg PO AC-SUPPER 07/19/18 08/19/18 History buPROPion HCL [Wellbutrin SR] 150 mg PO BID 07/19/18 08/19/18 History predniSONE 5 mg PO DAILY 07/19/18 08/19/18 History Lisinopril [Zestril] 2.5 mg PO HS 08/19/18 08/19/18 History Pantoprazole Sodium [Protonix] 40 mg PO DAILY 08/19/18 08/19/18 History Allergies Allergy/AdvReac Type Severity Reaction Status Date / Time ibuprofen [From Motrin IB] AdvReac Unknown Verified 08/19/18 20:03 Surgical - Exam Vital Signs Temp Pulse Resp BP Pulse Ox 97.5 F L 56 L 16 156/80 98 08/19/18 19:44 08/19/18 19:44 08/19/18 19:44 08/19/18 19:44 08/19/18 19:44 - General well developed, well nourished, no distress - Eyes PERRL, normal ocular movement - ENT no hearing loss - Neck no masses, no bruits, trachea midline - Respiratory Lungs sounds clear bilaterally. Respirations even, nonlabored. Currently on room air with oxygen saturation 95%. Left anterior chest wall with Prevena VAC device. - Cardiovascular S1, S2 present. Regular rate and rhythm, sinus rhythm on telemetry. Palpable peripheral pulses bilaterally. No edema present. No calf pain or tenderness noted. - Abdomen Abdomen: soft, non tender, bowel sounds - Genitourinary Deferred - Rectum Deferred - Integumentary no rash, no growths, no abnormal pigmentation - Neurologic normal coordination, normal sensation - Psychiatric oriented to time, oriented to person, oriented to place, speech is normal, memory intact Results - Labs 08/25/18 05:52 08/24/18 11:06 Abnormal Lab Results - Last 24 Hours (Table) 08/24/18 08/24/18 08/25/18 Range/Units 11:06 11:06 05:52 WBC 13.6 H (3.8-10.6) k/uL RBC 4.02 L 4.04 L (4.30-5.90) m/uL Hgb 12.1 L D 12.3 L (13.0-17.5) gm/dL Hct 36.9 L 37.1 L (39.0-53.0) % Sodium 133 L (137-145) mmol/L Glucose 68 L (74-99) mg/dL Calcium 8.2 L (8.4-10.2) mg/dL Total Protein 5.0 L (6.3-8.2) g/dL Albumin 2.7 L (3.5-5.0) g/dL Diabetes panel 08/24/18 Range/Units 11:06 Sodium 133 L (137-145) mmol/L Potassium 4.3 (3.5-5.1) mmol/L Chloride 104 (98-107) mmol/L Carbon Dioxide 24 (22-30) mmol/L BUN 18 (9-20) mg/dL Creatinine 0.80 (0.66-1.25) mg/dL Glucose 68 L (74-99) mg/dL Calcium 8.2 L (8.4-10.2) mg/dL AST 18 (17-59) U/L ALT 25 (21-72) U/L Alkaline Phosphatase 64 (38-126) U/L Total Protein 5.0 L (6.3-8.2) g/dL Albumin 2.7 L (3.5-5.0) g/dL Calcium panel 08/24/18 Range/Units 11:06 Calcium 8.2 L (8.4-10.2) mg/dL Albumin 2.7 L (3.5-5.0) g/dL Pituitary panel 08/24/18 Range/Units 11:06 Sodium 133 L (137-145) mmol/L Potassium 4.3 (3.5-5.1) mmol/L Chloride 104 (98-107) mmol/L Carbon Dioxide 24 (22-30) mmol/L BUN 18 (9-20) mg/dL Creatinine 0.80 (0.66-1.25) mg/dL Glucose 68 L (74-99) mg/dL Calcium 8.2 L (8.4-10.2) mg/dL Adrenal panel 08/24/18 Range/Units 11:06 Sodium 133 L (137-145) mmol/L Potassium 4.3 (3.5-5.1) mmol/L Chloride 104 (98-107) mmol/L Carbon Dioxide 24 (22-30) mmol/L BUN 18 (9-20) mg/dL Creatinine 0.80 (0.66-1.25) mg/dL Glucose 68 L (74-99) mg/dL Calcium 8.2 L (8.4-10.2) mg/dL Total Bilirubin 0.5 (0.2-1.3) mg/dL AST 18 (17-59) U/L ALT 25 (21-72) U/L Alkaline Phosphatase 64 (38-126) U/L Total Protein 5.0 L (6.3-8.2) g/dL Albumin 2.7 L (3.5-5.0) g/dL - Imaging Chest x-ray: report reviewed, image reviewed EKG: image reviewed Assessment and Plan (1) CAD (coronary artery disease) Current Visit: Yes Status: Chronic Code(s): I25.10 - ATHSCL HEART DISEASE OF CADDO CORONARY ARTERY W/O ANG PCTRS SNOMED Code(s): 37152674 (2) Status post coronary artery bypass graft Current Visit: Yes Status: Chronic Code(s): Z95.1 - PRESENCE OF AORTOCORONARY BYPASS GRAFT SNOMED Code(s): 046415053 (3) H/O heart artery stent Current Visit: Yes Status: Chronic Code(s): Z95.5 - PRESENCE OF CORONARY ANGIOPLASTY IMPLANT AND GRAFT SNOMED Code(s): 013202572 (4) Paroxysmal atrial fibrillation Current Visit: No Status: Resolved Code(s): I48.0 - PAROXYSMAL ATRIAL FIBRILLATION SNOMED Code(s): 341662793 (5) Chronic anticoagulation Current Visit: Yes Status: Chronic Code(s): Z79.01 - 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 Chart/diagnostics were reviewed with Dr. Duenas, Dr. Joaquin discussed the case in detail with Dr. Duenas. At this time our recommendation is for conservative management with no extraction of the old ventricular lead. Continued medical management per primary care services/cardiology. Encourage continued smoking cessation, encourage incentive spirometry use. Pain control with current medication regimen. Will continue to follow as needed. Thank you for this consult. Please call us with any questions. Time with Patient: Greater than 30
[2018-08-25] MEDS: SODIUM CHLORIDE 0.9% 1,000 ML IV SCH (11:38)
--- NOTE | 2018-08-25 12:25 | CDI ---
Documentation Clarification Form Date: 08/25/2018 CDS: Melia Nielsen, BRITNEY, CCDS (Ext [id number]) Admit Date: 08/25/2018 (Presented on 08/19, Inpatient effective 08/25) Patient Name: Jey Kingsley ATTENTION: The Clinical Documentation Specialists (CDI) and [facility] Coding Staff appreciate your assistance in clarifying documentation. Please respond to the clarification below the line at the bottom and electronically sign. The CDI & [facility] Coding staff will review the response and follow-up if needed. Please note: Queries are made part of the Legal Health Record. If you have any questions, please contact the author of this message via ITS. Dr. Masoud Morris MD: Patient presented with a malfunctioning pacemaker lead status post a new left ventricular lead placement. Developed a left chest wall hematoma post procedure requiring evacuation of hematoma & control of bleeding. Patients Admitting Diagnosis: Malfunctioning pacemaker lead with insertion of new lead. Post-Operative pacemaker lead insertion: Hematoma left chest wall post pacemaker lead Procedure performed: Evacuation of hematoma & control of bleeding History/Risk Factors: CAD with previous CABG & stent & pacemaker insertion in 2017. Treatment: Surgery as above, IV Toradol, IV Cefazolin, IV fluids. In order to accurately reflect this patients severity of illness, please clarify if the post-operative diagnosis of hematoma is: An expected post-procedural or post-surgical condition o If expected, please explain cause if known. An unexpected post-procedural or post-surgical condition related to surgical care; Other, please specify Unable to determine MTDD
--- NOTE | 2018-08-25 15:10 | P.PN ---
Subjective Progress Note Date: 08/25/18 This is a 68-year-old gentleman with known history of coronary artery disease who follows with Dr. Tonja Falk in the office. He presented to the emergency room with symptoms of fluttering in his chest, and he said showed evidence of chest wall fluttering over his pacemaker site. He has underwent coronary artery bypass grafting surgery in the past, and he was in the hospital towards the end of June of this year, had an abnormal myocardial perfusion imaging and subsequently underwent cardiac catheterization. He was found at that time to have a totally occluded LAD proximally, patent stent of the proximal circumflex, totally occluded right coronary artery with ipsilateral collaterals. Saphenous vein graft to the obtuse marginal branch was occluded, saphenous vein graft to the PLV was patent, there is about a 40% stenosis in the body of the graft and the ZABALA to the LAD was patent with intimal disease be on the insertion point. He presented to the hospital on this occasion with symptoms of mild chest discomfort, mostly fluttering over his device. His pacemaker was then interrogated and showed malfunction with no ventricular lead capture because of a broken insulation. He was programmed at that time to AAI. Patient had a pacemaker placed in October [address] Tonja Falk after having asystole following his cardiac catheterization. Subsequent to his admission here patient did undergo exposure of the existing generator, freeing of the leads, which showed extensive adhesions, capping off the old ventricular lead and insertion of a new ventricular lead by Dr. Joaquin. Patient then developed significant hematoma and bleeding at the site. This reason a consultation was requested with Dr. Morris. He performed evacuation of the hematoma and control of the bleeding, there continues to be a drain in place and time. Blood pressure 100/60 with a heart rate in the 60s 91% on room air. Patient was running fevers through the night of up to 102. He's been afebrile today. White blood cell count 13.6, hemoglobin 12.1, platelet count 205. Sodium 133, potassium 4.3, BUN 18, creatinine 0.8. Patient was seen and examined today and overall is feeling well. Dr. Joaquin did have a discussion with the patient today explaining that the original device lead will need to be extracted because it is in inappropriate position. 08/25/2018 Patient seen and examined this morning, overall doing well. Anticipating discharge home today. Blood pressure 117/70 with a heart rate in the 60s. White blood cell count 8.5, hemoglobin 12.3, platelet count 187. Objective - Vital Signs Vital signs: Vital Signs Temp 97.8 F 08/25/18 11:06 Pulse 63 08/25/18 11:06 Resp 16 08/25/18 11:06 BP 117/70 08/25/18 11:06 Pulse Ox 94 L 08/25/18 11:06 Intake & Output 08/24/18 08/25/18 08/25/18 18:59 06:59 18:59 Intake Total 720 1440 680 Balance 720 1440 680 Weight 78.4 kg Intake: Intake, IV Titration 200 Amount Sodium Chloride 0.9% 50 200 ml @ 0 mls/hr IV .STK-MED ONE with ceFAZolin 1,000 mg Rx#:[id number] Oral 720 1440 480 Other: Voiding Method Urinal Urinal # Voids 1 2 1 - Exam PHYSICAL EXAMINATION: GENERAL: 68 year old gentleman in no acute distress at the time of my examination HEENT: Head is atraumatic, normocephalic. Pupils equal, round. Sclera anicteric. Conjunctiva are clear. Mucous membranes of the mouth are moist. Neck is supple. There is no elevated jugular venous pressure.] bruit is heard. HEART EXAMINATION: Heart S1, S2 normal. No murmur or gallop heard. Dressing in place to chest wall at site of pacemaker implantation CHEST EXAMINATION: Lungs are clear to auscultation and precussion. No chest wall tenderness is noted on palpation or with deep breathing. ABDOMEN: Soft, nontender. Bowel sounds are heard. No organomegaly noted. EXTREMITIES: 2+ peripheral pulses with no evidence of peripheral edema and no calf tenderness noted. NEUROLOGIC patient is awake, alert and oriented ?-3. . - Labs CBC & Chem 7: 08/25/18 05:52 08/24/18 11:06 Labs: Abnormal Lab Results - Last 24 Hours (Table) 08/25/18 Range/Units 05:52 RBC 4.04 L (4.30-5.90) m/uL Hgb 12.3 L (13.0-17.5) gm/dL Hct 37.1 L (39.0-53.0) % Microbiology - Last 24 Hours (Table) 08/24/18 12:58 Blood Culture - Preliminary Blood No Growth after 24 hours 08/24/18 11:34 Blood Culture - Preliminary Blood No Growth after 24 hours 08/24/18 11:06 Blood Culture - Preliminary Blood No Growth after 24 hours Assessment and Plan Plan: Assessment and plan #1 pacemaker malfunction with non-capture of the ventricular lead. Status post placement of a new ventricular lead. Patient also developed hematoma and underwent evacuation of hematoma. #2 history of prior pacemaker implantation #3 fever, on antibiotics #4 known history of coronary artery disease and prior bypass surgery #5 hypertension #6 hyperlipidemia Plan Cardiology's perspective, patient may be in to be discharged home once cleared by primary. We will make a follow-up appointment in the office post discharge. DNP note has been reviewed, I agree with a documented findings and plan of care. Patient was seen and examined.
[2018-08-25] MEDS: LISINOPRIL 2.5 MG TAB PO SCH (20:22)
[2018-08-25] MEDS: METOPROLOL TARTRATE 25 MG TAB PO SCH (20:22)
[2018-08-25] MEDS: ATORVASTATIN 80 MG TAB PO SCH (20:22)
--- NOTE | 2018-08-25 23:59 | PN ---
PROGRESS NOTE DATE OF SERVICE: 08/25/2018 PRESENTING COMPLAINT: Comfortable. INTERVAL HISTORY: This patient presented with ventricular lead fracture of the pacemaker, and a new one was placed by Dr. Joaquin. CORRECTION FROM MY PREVIOUS NOTE: The old lead is still present. Patient also developed a hematoma at the site that was removed, then spiked a fever. Hence patient was put on antibiotics. Overall feeling better right now. He has an incisional wound V.A.C. in place. REVIEW OF SYSTEMS: Done for constitutional, cardiovascular, GI, pulmonary; relevant findings as above. CURRENT MEDICATIONS: Reviewed. They include IV Ancef. PHYSICAL EXAMINATION: Afebrile, pulse 65, respiration 16, blood pressure 127/77, pulse ox 94% on room air. GENERAL APPEARANCE: Sitting up, comfortable. EYES: Pupils equal. Conjunctivae normal. NECK: JVD not raised. Mass not palpable. RESPIRATORY: Effort normal. LUNGS: Decreased breath sounds. CHEST WALL: Patient has an incisional wound V.A.C. in place. PSYCHIATRY: Alert and oriented x3. Mood and affect normal. INVESTIGATIONS: White count 8.5, hemoglobin 12.3. Blood cultures are pending. ASSESSMENT: 1. Acute hematoma at the pacemaker site, evacuated. 2. Episode of fever following hematoma evacuation, empirically on IV Ancef. 3. Pacemaker malfunction due to ventricular lead, and a new one was placed. The old one is still present. 4. Coronary artery disease with prior bypass. 5. Chronic obstructive pulmonary disease in an ex-smoker. 6. Gastroesophageal reflux disease. 7. Paroxysmal atrial fibrillation, chronically on Xarelto. PLAN: Continue current medication and treatment plan. Keep patient on Ancef. White count is coming down. Cultures are negative. Discussed at length with the patient and Dr. Morris from [facility] and the patient's ; he will probably need to stay in the hospital at least for 1 or 2 more days until cultures are definitely negative. Patient will need to go home probably on a short course of antibiotics at least. MMODL / IJN: [id number] /
[2018-08-26] MEDS: PANTOPRAZOLE 40 MG TABLET PO SCH (06:24)
[2018-08-26] MEDS: ceFAZolin 1,000 MG in DEXTROSE/WATER 1 50ML.BAG IVPB SCH ×2 (06:24→11:23)
[2018-08-26] MEDS: HYDROcodone/APAP 5-325MG 1 EACH TAB PO PRN ×2 (06:28→13:43)
[2018-08-26 06:31] LABS: Basophils % (A) 1 %; Eosinophils # (A) 0.2 k/uL (0-0.7); Eosinophils % (A) 3 %; HGB 11.5 gm/dL (13.0-17.5); Lymphocytes # (A) 1.5 k/uL (1.0-4.8); Lymphocytes % (A) 22 %; MCH 29.4 pg (25.0-35.0); MCHC 32.1 g/dL (31.0-37.0); MCV 91.6 fL (80.0-100.0); Mean Platelet Volume 6.4; Monocytes # (A) 0.6 k/uL (0-1.0); Monocytes % (A) 8 %; Neutrophils # (A) 4.3 k/uL (1.3-7.7); Neutrophils % (A) 64 %; Platelet Count 209 k/uL (150-450); RBC 3.93 m/uL (4.30-5.90); RDW 13.3 % (11.5-15.5); WBC 6.7 k/uL (3.8-10.6)
[2018-08-26] MEDS: METOPROLOL TARTRATE 50 MG TAB PO SCH (08:16)
[2018-08-26] MEDS: ISOSORBIDE MONONITRATE ER 30 MG TAB.ER.24H PO SCH (08:16)
[2018-08-26] MEDS: FERROUS SULFATE 325 MG TAB PO SCH (08:16)
[2018-08-26] MEDS: buPROPion SR 150 MG TABLET.ER PO SCH (08:17)
[2018-08-26] MEDS: GABAPENTIN 300 MG CAP PO SCH (08:17)
[2018-08-26] MEDS: predniSONE 5 MG TAB PO SCH (08:17)
[2018-08-26] MEDS: SYMBICORT 160-4.5 MCG INHALER INHALATION SCH (08:49)
[2018-08-26 09:07] VITALS: RESP 20
[2018-08-26 11:27] VITALS: BMI 28.5
--- NOTE | 2018-08-26 14:22 | P.PN ---
Subjective Progress Note Date: 08/26/18 This is a 68-year-old gentleman with known history of coronary artery disease who follows with Dr. Tonja Falk in the office. He presented to the emergency room with symptoms of fluttering in his chest, and he said showed evidence of chest wall fluttering over his pacemaker site. He has underwent coronary artery bypass grafting surgery in the past, and he was in the hospital towards the end of June of this year, had an abnormal myocardial perfusion imaging and subsequently underwent cardiac catheterization. He was found at that time to have a totally occluded LAD proximally, patent stent of the proximal circumflex, totally occluded right coronary artery with ipsilateral collaterals. Saphenous vein graft to the obtuse marginal branch was occluded, saphenous vein graft to the PLV was patent, there is about a 40% stenosis in the body of the graft and the ZABALA to the LAD was patent with intimal disease be on the insertion point. He presented to the hospital on this occasion with symptoms of mild chest discomfort, mostly fluttering over his device. His pacemaker was then interrogated and showed malfunction with no ventricular lead capture because of a broken insulation. He was programmed at that time to AAI. Patient had a pacemaker placed in October [address] Tonja Falk after having asystole following his cardiac catheterization. Subsequent to his admission here patient did undergo exposure of the existing generator, freeing of the leads, which showed extensive adhesions, capping off the old ventricular lead and insertion of a new ventricular lead by Dr. Joaquin. Patient then developed significant hematoma and bleeding at the site. This reason a consultation was requested with Dr. Morris. He performed evacuation of the hematoma and control of the bleeding, there continues to be a drain in place and time. Blood pressure 100/60 with a heart rate in the 60s 91% on room air. Patient was running fevers through the night of up to 102. He's been afebrile today. White blood cell count 13.6, hemoglobin 12.1, platelet count 205. Sodium 133, potassium 4.3, BUN 18, creatinine 0.8. Patient was seen and examined today and overall is feeling well. Dr. Joaquin did have a discussion with the patient today explaining that the original device lead will need to be extracted because it is in inappropriate position. 08/25/2018 Patient seen and examined this morning, overall doing well. Anticipating discharge home today. Blood pressure 117/70 with a heart rate in the 60s. White blood cell count 8.5, hemoglobin 12.3, platelet count 187. 08/26/2018 Patient seen and examined this morning, overall doing well. Cleared for discharge from cardiology's perspective. Objective - Vital Signs Vital signs: Vital Signs Temp 97.4 F L 08/26/18 11:29 Pulse 54 L 08/26/18 11:29 Resp 20 08/26/18 11:29 BP 110/69 08/26/18 11:29 Pulse Ox 95 08/26/18 11:29 Intake & Output 08/25/18 08/26/18 08/26/18 18:59 06:59 18:59 Intake Total 920 960 360 Output Total 1 Balance 920 959 360 Weight 77.9 kg 77.9 kg Intake: Intake, IV Titration 200 Amount Sodium Chloride 0.9% 50 200 ml @ 0 mls/hr IV .STK-MED ONE with ceFAZolin 1,000 mg Rx#:[id number] Oral 720 960 360 Output: Urine 1 Other: Voiding Method Urinal # Voids 1 2 1 # Bowel Movements 0 - Exam PHYSICAL EXAMINATION: GENERAL: 68 year old gentleman in no acute distress at the time of my examination HEENT: Head is atraumatic, normocephalic. Pupils equal, round. Sclera anicteric. Conjunctiva are clear. Mucous membranes of the mouth are moist. Neck is supple. There is no elevated jugular venous pressure.] bruit is heard. HEART EXAMINATION: Heart S1, S2 normal. No murmur or gallop heard. Dressing in place to chest wall at site of pacemaker implantation CHEST EXAMINATION: Lungs are clear to auscultation and precussion. No chest wall tenderness is noted on palpation or with deep breathing. ABDOMEN: Soft, nontender. Bowel sounds are heard. No organomegaly noted. EXTREMITIES: 2+ peripheral pulses with no evidence of peripheral edema and no calf tenderness noted. NEUROLOGIC patient is awake, alert and oriented ?-3. . - Labs CBC & Chem 7: 08/26/18 05:52 08/24/18 11:06 Labs: Abnormal Lab Results - Last 24 Hours (Table) 08/26/18 Range/Units 05:52 RBC 3.93 L (4.30-5.90) m/uL Hgb 11.5 L (13.0-17.5) gm/dL Hct 36.0 L (39.0-53.0) % Microbiology - Last 24 Hours (Table) 08/24/18 11:06 Blood Culture - Preliminary Blood No Growth after 48 hours 08/24/18 11:34 Blood Culture - Preliminary Blood No Growth after 48 hours 08/24/18 12:58 Blood Culture - Preliminary Blood No Growth after 24 hours Assessment and Plan Plan: Assessment and plan #1 pacemaker malfunction with non-capture of the ventricular lead. Status post placement of a new ventricular lead. Patient also developed hematoma and underwent evacuation of hematoma. #2 history of prior pacemaker implantation #3 fever, on antibiotics #4 known history of coronary artery disease and prior bypass surgery #5 hypertension #6 hyperlipidemia Plan Cardiology's perspective, patient may be in to be discharged home once cleared by primary. We will make a follow-up appointment in the office post discharge. DNP note has been reviewed, I agree with a documented findings and plan of care. Patient was seen and examined.
[2018-08-26 15:33] VITALS: BP 127/64; PULSE 55; TEMP 98.1
--- NOTE | 2018-08-27 00:46 | DS ---
DISCHARGE SUMMARY DATE OF ADMISSION: 08/25/2018 DATE OF DISCHARGE: 08/26/2018 FINAL DIAGNOSES: 1. Pacemaker malfunction due to ventricular lead malfunction. 2. Coronary artery disease with prior bypass. 3. Chronic obstructive pulmonary disease in an ex-smoker. 4. Gastroesophageal reflux disease. 5. Paroxysmal atrial fibrillation chronically on Xarelto. 6. Acute hematoma at the pacemaker site. HOSPITAL COURSE: This patient presented with thumping sensation in the chest, was taken to the lab by Dr. Joaquin. The ventricular lead was attached with fibrosis. It was left there and a new ventricular lead was placed. Postoperatively, patient developed a hematoma at the incision site. This was evacuated by Dr. Morris and incision wound VAC was placed that was removed this evening. Also patient had spiked fevers. Empirically patient is put on IV Ancef and then switched to Keflex to go home. I did check the lab today. Blood culture has been negative till now. Today I discussed the case with Dr. Joaquin from Cardiology and also Dr. Morris from Vascular. Also discussed with the patient. Otherwise patient doing well. PHYSICAL EXAMINATION: Temperature 98.1, pulse 55, respiration 20, blood pressure 127/64. LUNGS: Clear. Dressing over the pacemaker site. White count 6.7, hemoglobin 11.5. Blood cultures negative. Discussion and discharge planning more than 35 minutes. DISCHARGE MEDICATIONS: 1. Neurontin 300 mg b.i.d. 2. Nitrostat 0.4 sublingual q.5 p.r.n. 3. Ferrous sulfate 325 p.o. b.i.d. 4. Lipitor 80 mg q.h.s. 5. Plavix 75 mg a day. 6. MiraLAX 17 g p.o. q.h.s. p.r.n. 7. Tylenol 650 mg q.6h p.r.n. 8. Ventolin HFA 1 2 puffs b.i.d. p.r.n. 9. Symbicort 160/4.5, 2 puffs b.i.d. 10.DuoNeb t.i.d. p.r.n. 11.Lopressor 25 p.o. q.h.s. 50 mg in the morning. 12.Xarelto 50 mg with supper. 13.Wellbutrin SR 150 mg p.o. b.i.d. 14.Prednisone 5 mg daily. 15.Zestril 2.5 mg q.h.s. 16.Protonix 40 mg p.o. daily. 17.Keflex 500 mg q.6 20 capsules. 18.Imdur ER 30 mg p.o. daily. The patient's Xarelto and Keflex has been held until follow up with Cardiology. FOLLOWUP: Follow up with Dr. Frank Falk on 08/31/2018. Follow up with Dr. Emilia Bob on 08/27/2018. Dressing changes per Dr. Morris. Discussion and discharge planning more than 35 minutes. Copy to Emilia Bob. MMODL / IJN: [id number] /
--- NOTE | 2018-08-28 09:05 | CDI ---
Documentation Clarification Form Date: 08/25/2018 12:15:00 PM From: Melia Nielsen CCS, CCDS Admit Date: 08/25/2018 9:09:00 AM Patient Name: Jey Kingsley Visit Number: [id number] Discharge Date: 08/26/2018 4:43:00 PM ATTENTION: The Clinical Documentation Specialists (CDI) and [facility] Coding Staff appreciate your assistance in clarifying documentation. Please respond to the clarification below the line at the bottom and electronically sign. The CDI & [facility] Coding staff will review the response and follow-up if needed. Please note: Queries are made part of the Legal Health Record. If you have any questions, please contact the author of this message via ITS. Dr. Masoud Morris: Patient presented with a malfunctioning pacemaker lead status post a new left ventricular lead placement. Developed a left chest wall hematoma post procedure requiring evacuation of hematoma & control of bleeding. Patients Admitting Diagnosis: Malfunctioning pacemaker lead with insertion of new lead. Post-Operative pacemaker lead insertion: Hematoma left chest wall post pacemaker lead Procedure performed: Evacuation of hematoma & control of bleeding History/Risk Factors: CAD with previous CABG & stent & pacemaker insertion in 2017. Treatment: Surgery as above, IV Toradol, IV Cefazolin, IV fluids. In order to accurately reflect this patients severity of illness, please clarify if the post-operative diagnosis of hematoma is: An expected post-procedural or post-surgical condition; An unexpected post-procedural or post-surgical condition related to surgical care; Other, please specify Unable to determine MTDD
--- NOTE | 2018-09-02 07:31 | CDI ---
Documentation Clarification Form Date: 08/25/2018 12:15:00 PM From: Melia Nielsen CCS, CCDS Admit Date: 08/25/2018 9:09:00 AM Patient Name: Jey Kingsley Visit Number: [id number] Discharge Date: 08/26/2018 4:43:00 PM ATTENTION: The Clinical Documentation Specialists (CDI) and [facility] Coding Staff appreciate your assistance in clarifying documentation. Please respond to the clarification below the line at the bottom and electronically sign. The CDI & [facility] Coding staff will review the response and follow-up if needed. Please note: Queries are made part of the Legal Health Record. If you have any questions, please contact the author of this message via ITS. Dr. Masoud Morris: Patient presented with a malfunctioning pacemaker lead status post a new left ventricular lead placement. Developed a left chest wall hematoma post procedure requiring evacuation of hematoma & control of bleeding. Patients Admitting Diagnosis: Malfunctioning pacemaker lead with insertion of new lead. Post-Operative pacemaker lead insertion: Hematoma left chest wall post pacemaker lead Procedure performed: Evacuation of hematoma & control of bleeding History/Risk Factors: CAD with previous CABG & stent & pacemaker insertion in 2017. Treatment: Surgery as above, IV Toradol, IV Cefazolin, IV fluids. In order to accurately reflect this patients severity of illness, please clarify if the post-operative diagnosis of hematoma is: An expected post-procedural or post-surgical condition; An unexpected post-procedural or post-surgical condition related to surgical care; Other, please specify Unable to determine _This was an expected post-procedural or post surgical condition. MTDD
== END 2018-08-26 16:43 | disposition home or self-care (01) | DRG 261 ==
LOC: EC 19:31 → 1SOBS 08-20 → 3SCARD 08-23 17:05 → OBSVTOIN 08-25 09:09
PROVIDERS: ADMIT Hospitalist; ATTEND Hospitalist
PROC: 02HK3JZ Insertion of Pacemaker Lead into Right Ventricle, Percutaneous Approach (ICD-10-PCS; 2018-08-21)
PROC: 4B02XSZ Measurement of Cardiac Pacemaker, External Approach (ICD-10-PCS; 2018-08-21)
PROC: 02PA0MZ Removal of Cardiac Lead from Heart, Open Approach (ICD-10-PCS; principal; 2018-08-21 12:30)
PROC: 0JC60ZZ Extirpation of Matter from Chest Subcutaneous Tissue and Fascia, Open Approach (ICD-10-PCS; 2018-08-23)
PROC: 0J9600Z Drainage of Chest Subcutaneous Tissue and Fascia with Drainage Device, Open Approach (ICD-10-PCS; 2018-08-23)
DX: T82.190A Other mechanical complication of cardiac electrode, initial encounter (principal); L76.32 Postprocedural hematoma of skin and subcutaneous tissue following other procedure; T82.110A Breakdown (mechanical) of cardiac electrode, initial encounter; Y71.2 Prosthetic and other implants, materials and accessory cardiovascular devices associated with adverse incidents; Y83.1 Surgical operation with implant of artificial internal device as the cause of abnormal reaction of the patient, or of later complication, without mention of misadventure at the time of the procedure; E78.5 Hyperlipidemia, unspecified; I10 Essential (primary) hypertension; I25.10 Atherosclerotic heart disease of native coronary artery without angina pectoris; Z86.74 Personal history of sudden cardiac arrest; I48.0 Paroxysmal atrial fibrillation; J44.9 Chronic obstructive pulmonary disease, unspecified; K21.9 Gastro-esophageal reflux disease without esophagitis; Z79.01 Long term (current) use of anticoagulants; Z79.02 Long term (current) use of antithrombotics/antiplatelets; Z79.51 Long term (current) use of inhaled steroids; Z79.899 Other long term (current) drug therapy; Z79.52 Long term (current) use of systemic steroids; Z82.49 Family history of ischemic heart disease and other diseases of the circulatory system; Z87.891 Personal history of nicotine dependence; Z95.0 Presence of cardiac pacemaker; Z95.1 Presence of aortocoronary bypass graft; Z95.5 Presence of coronary angioplasty implant and graft; Z88.6 Allergy status to analgesic agent; Z98.42 Cataract extraction status, left eye; Z98.41 Cataract extraction status, right eye; Z87.01 Personal history of pneumonia (recurrent); M19.90 Unspecified osteoarthritis, unspecified site; Z80.9 Family history of malignant neoplasm, unspecified; I45.10 Unspecified right bundle-branch block; M51.36 Other intervertebral disc degeneration, lumbar region; R50.9 Fever, unspecified
CPT/HCPCS: 33216; 36415; 71046; 80053; 80061; 82550; 82553; 83605; 83735; 84484; 85025; 85027; 85610; 85730; 87040; 93005; 93306; 94640; 94760; 99285

== ENCOUNTER 2018-10-19 09:53 | Observation (INO) | payer OTHER, BC ==
--- NOTE | 2018-10-19 11:00 | ED ---
General Adult HPI - General Source: patient, RN notes reviewed, old records reviewed Mode of arrival: wheelchair Limitations: no limitations <Stephan Tavarez - Last Filed: 10/19/18 12:57> <Miguel Kaur - Last Filed: 10/19/18 13:14> - General Chief complaint: Chest Pain Stated complaint: Chest Pain Time Seen by Provider: 10/19/18 10:14 - History of Present Illness Initial comments: Patient 68-year-old male presented to the emergency room today with chief complaint of increased chest pain over the last 2 days. He does admit that he woke up 2 days ago. States some back pain and some chest discomfort. Patient states that he had an episode of diarrhea and nausea vomiting. States back pain improved but still experiencing some pain to the left side of the chest. Patient states pain is different than pain is experienced in the past. He denies any shortness of breath. Denies any other complaints or symptoms. Patient denies any recent fever, chills, back pain, abdominal pain, nausea or vomiting, numbness or tingling, headaches or visual changes, or any other complaints. (Stephan Tavarez) - Related Data Home Medications Medication Instructions Recorded Confirmed Gabapentin [Neurontin] 300 mg PO BID 10/08/14 10/19/18 Nitroglycerin Sl Tabs [Nitrostat] 0.4 mg SUBLINGUAL Q5M PRN 10/08/14 10/19/18 Ferrous Sulfate [Iron (65 MG 325 mg PO BID 09/03/16 10/19/18 Elemental)] Polyethylene Glycol 3350 [Miralax] 17 gm PO HS PRN 10/30/16 10/19/18 Acetaminophen Tab [Tylenol] 650 mg PO Q6H PRN 07/19/18 10/19/18 Albuterol Inhaler [Ventolin Hfa 1 - 2 puff INHALATION RT-BID PRN 07/19/18 Inhaler] Budesonide/Formoterol Fumarate 2 puff INHALATION RT-BID 07/19/18 10/19/18 [Symbicort 160-4.5 Mcg Inhaler] Ipratropium-Albuterol Nebulize 3 ml INHALATION RT-TID PRN 07/19/18 10/19/18 [Duoneb 0.5 mg-3 mg/3 ml Soln] Metoprolol Tartrate [Lopressor] 25 mg PO HS 07/19/18 10/19/18 Metoprolol Tartrate [Lopressor] 50 mg PO QAM 07/19/18 10/19/18 Rivaroxaban [Xarelto] 15 mg PO AC-SUPPER 07/19/18 10/19/18 buPROPion HCL [Wellbutrin SR] 150 mg PO BID 07/19/18 10/19/18 predniSONE 5 mg PO DAILY 07/19/18 10/19/18 Lisinopril [Zestril] 2.5 mg PO HS 08/19/18 10/19/18 Pantoprazole Sodium [Protonix] 40 mg PO DAILY 08/19/18 10/19/18 Isosorbide Mononitrate ER [Imdur] 15 mg PO HS 10/19/18 10/19/18 Previous Rx's Medication Instructions Recorded Atorvastatin [Lipitor] 80 mg PO HS #90 tab 09/07/16 Clopidogrel [Plavix] 75 mg PO DAILY #90 tab 09/07/16 Allergies Allergy/AdvReac Type Severity Reaction Status Date / Time ibuprofen [From Motrin IB] AdvReac Unknown Verified 10/19/18 10:21 Review of Systems ROS Other: All systems not noted in ROS Statement are negative. <Stephan Tavarez - Last Filed: 10/19/18 12:57> ROS Other: All systems not noted in ROS Statement are negative. <Miguel Kaur - Last Filed: 10/19/18 13:14> ROS Statement: Those systems with pertinent positive or pertinent negative responses have been documented in the HPI. Past Medical History Past Medical History: Atrial Fibrillation, Coronary Artery Disease (CAD), COPD, GERD/Reflux, Osteoarthritis (OA), Pneumonia, Respiratory Disorder Additional Past Medical History / Comment(s): small hiatal hernia, hx anemia, ventral hernia, lumbar disk disorder, History of Any Multi-Drug Resistant Organisms: None Reported Past Surgical History: Coronary Bypass/CABG, Heart Catheterization, Heart Catheterization With Stent, Hernia Repair, Orthopedic Surgery, Pacemaker Additional Past Surgical History / Comment(s): Vasectomy 1995, CABG 2004, KLELY CATARACT, VASECTOMY, BONE INFUSION MIDDLE LT FINGER CRUSHING INJURY 1988, rt knee arthroscopy, [employer] pacemaker placed, 11/04/16, 3 stents to Circ 12/16/16, ventricular lead replacement 08/21/2018, hematoma evacuation from pacemaker site 08/23/2018 Past Anesthesia/Blood Transfusion Reactions: No Reported Reaction Date of Last Stent Placement:: 12/16/16 Type of Cardiac Device: Permanent Pacemaker Device Placement Date:: 11/04/16 Past Psychological History: No Psychological Hx Reported Smoking Status: Former smoker Past Alcohol Use History: Rare Past Drug Use History: None Reported - Past Family History Father Family Medical History: Cancer Additional Family Medical History / Comment(s): . Mother Family Medical History: Coronary Artery Disease (CAD) Additional Family Medical History / Comment(s): HEART PROBLEMS <Stephan Tavarez - Last Filed: 10/19/18 12:57> General Exam Limitations: no limitations <Stephan Tavarez - Last Filed: 10/19/18 12:57> <Miguel Kaur - Last Filed: 10/19/18 13:14> - General Exam Comments Initial Comments: General: The patient is awake and alert, in no distress, and does not appear acutely ill. Eye: There is normal conjunctiva bilaterally. No signs of icterus. Ears, nose, mouth and throat: There are moist mucous membranes and no oral lesions. Neck: The neck is supple, there is no tenderness or JVD. Cardiovascular: There is a regular rate and rhythm. No murmur, rub or gallop is appreciated. Respiratory: Lungs are clear to auscultation, respirations are non-labored, breath sounds are equal. No wheezes, stridor, rales, or rhonchi. Gastrointestinal: Soft, non-distended, non-tender abdomen without masses or organomegaly noted. There is no rebound or guarding present. No CVA tenderness. Musculoskeletal: Normal ROM, no tenderness. Strength 5/5. Sensation intact. Radial pulses equal bilaterally 2+. Neurological: A&O x 3. CN II-XII intact, There are no obvious motor or sensory deficits. Coordination appears grossly intact. Speech is normal. Skin: Skin is warm and dry and no rashes or lesions are noted. Psychiatric: Cooperative, appropriate mood & affect, normal judgment. (Stephan Tavarez) Vital Signs 10/19/18 10/19/18 10/19/18 09:55 10:05 12:00 Temperature 98.3 F Pulse Rate 65 62 76 Respiratory 18 18 18 Rate Blood Pressure 137/77 124/82 106/72 O2 Sat by Pulse 94 L 97 97 Oximetry Medical Decision Making - Lab Data Result diagrams: 10/19/18 10:55 10/19/18 10:55 <Stephan Tavarez - Last Filed: 10/19/18 12:57> - Lab Data Result diagrams: 10/19/18 10:55 10/19/18 10:55 <Miguel Kaur - Last Filed: 10/19/18 13:14> - Medical Decision Making Patient's labs been reviewed negative cardiac enzymes. Patient's chest x-ray does show evidence for a right upper lobe pneumonia. Patient will be admitted started on antibiotics. Patient will be admitted to Dr. Hewitt with consult his medical case worker Dr. Mota (Stephan Tavarez) Patient reevaluated and resting comfortably in bed. Patient updated on results and plan. Case was discussed in detail with rolf, covering for Dr. Bob, who will admit. Patient does have infiltrate on x-ray and be covered with antibiotics. I did review and agree with PA findings. This includes all diagnostics interpretation and treatment plan. (Miguel Kaur) - Lab Data Lab Results 10/19/18 10/19/18 10/19/18 Range/Units 10:55 10:55 10:55 WBC 7.9 (3.8-10.6) k/uL RBC 4.25 L (4.30-5.90) m/uL Hgb 12.7 L (13.0-17.5) gm/dL Hct 39.1 (39.0-53.0) % MCV 91.9 (80.0-100.0) fL MCH 29.8 (25.0-35.0) pg MCHC 32.4 (31.0-37.0) g/dL RDW 14.3 (11.5-15.5) % Plt Count 210 (150-450) k/uL Neutrophils % 80 % Lymphocytes % 7 % Monocytes % 9 % Eosinophils % 1 % Basophils % 1 % Neutrophils # 6.3 (1.3-7.7) k/uL Lymphocytes # 0.6 L (1.0-4.8) k/uL Monocytes # 0.7 (0-1.0) k/uL Eosinophils # 0.0 (0-0.7) k/uL Basophils # 0.0 (0-0.2) k/uL PT (9.0-12.0) sec INR (<1.2) APTT (22.0-30.0) sec Sodium 136 L (137-145) mmol/L Potassium 4.3 (3.5-5.1) mmol/L Chloride 108 H (98-107) mmol/L Carbon Dioxide 24 (22-30) mmol/L Anion Gap 4 mmol/L BUN 11 (9-20) mg/dL Creatinine 0.77 (0.66-1.25) mg/dL Est GFR (CKD-EPI)AfAm >90 (>60 ml/min/1.73 sqM) Est GFR (CKD-EPI)NonAf >90 (>60 ml/min/1.73 sqM) Glucose 101 H (74-99) mg/dL Calcium 8.6 (8.4-10.2) mg/dL Magnesium 2.0 (1.6-2.3) mg/dL Total Bilirubin 0.4 (0.2-1.3) mg/dL AST 19 (17-59) U/L ALT 34 (21-72) U/L Alkaline Phosphatase 71 (38-126) U/L Total Creatine Kinase 32 L (55-170) U/L CK-MB (CK-2) 0.4 (0.0-2.4) ng/mL CK-MB (CK-2) Rel Index 1.3 Troponin I <0.012 (0.000-0.034) ng/mL Total Protein 5.4 L (6.3-8.2) g/dL Albumin 3.2 L (3.5-5.0) g/dL Influenza Type A RNA (Not Detectd) Influenza Type B (PCR) (Not Detectd) 10/19/18 10/19/18 Range/Units 10:55 11:10 WBC (3.8-10.6) k/uL RBC (4.30-5.90) m/uL Hgb (13.0-17.5) gm/dL Hct (39.0-53.0) % MCV (80.0-100.0) fL MCH (25.0-35.0) pg MCHC (31.0-37.0) g/dL RDW (11.5-15.5) % Plt Count (150-450) k/uL Neutrophils % % Lymphocytes % % Monocytes % % Eosinophils % % Basophils % % Neutrophils # (1.3-7.7) k/uL Lymphocytes # (1.0-4.8) k/uL Monocytes # (0-1.0) k/uL Eosinophils # (0-0.7) k/uL Basophils # (0-0.2) k/uL PT 10.6 (9.0-12.0) sec INR 1.0 (<1.2) APTT 27.1 (22.0-30.0) sec Sodium (137-145) mmol/L Potassium (3.5-5.1) mmol/L Chloride (98-107) mmol/L Carbon Dioxide (22-30) mmol/L Anion Gap mmol/L BUN (9-20) mg/dL Creatinine (0.66-1.25) mg/dL Est GFR (CKD-EPI)AfAm (>60 ml/min/1.73 sqM) Est GFR (CKD-EPI)NonAf (>60 ml/min/1.73 sqM) Glucose (74-99) mg/dL Calcium (8.4-10.2) mg/dL Magnesium (1.6-2.3) mg/dL Total Bilirubin (0.2-1.3) mg/dL AST (17-59) U/L ALT (21-72) U/L Alkaline Phosphatase (38-126) U/L Total Creatine Kinase (55-170) U/L CK-MB (CK-2) (0.0-2.4) ng/mL CK-MB (CK-2) Rel Index Troponin I (0.000-0.034) ng/mL Total Protein (6.3-8.2) g/dL Albumin (3.5-5.0) g/dL Influenza Type A RNA Not Detected (Not Detectd) Influenza Type B (PCR) Not Detected (Not Detectd) Disposition Is patient prescribed a controlled substance at d/c from ED?: No Time of Disposition: 12:58 <Stephan Tavarez - Last Filed: 10/19/18 12:57> <Miguel Kaur - Last Filed: 10/19/18 13:14> Clinical Impression: Community acquired pneumonia, Chest pain Disposition: ADMITTED IP TO THIS HOSP Condition: Good Referrals: [facility],Clinic [Primary Care Provider] - 1-2 days Addendum entered and electronically signed by Stephan Tavarez PA-C 10/19/18 13: 04: EKG performed at 1009. Shows normal sinus rhythm at 64 bpm. DC interval 170. QRS 154. QT/QTc 438/451. No Acute ST changes.
[2018-10-19 11:30] LABS: Basophils % (A) 1 %; Eosinophils % (A) 1 %; HCT 39.1 % (39.0-53.0); HGB 12.7 gm/dL (13.0-17.5); Lymphocytes # (A) 0.6 k/uL (1.0-4.8); Lymphocytes % (A) 7 %; MCH 29.8 pg (25.0-35.0); MCHC 32.4 g/dL (31.0-37.0); MCV 91.9 fL (80.0-100.0); Monocytes # (A) 0.7 k/uL (0-1.0); Monocytes % (A) 9 %; Neutrophils # (A) 6.3 k/uL (1.3-7.7); Neutrophils % (A) 80 %; Platelet Count 210 k/uL (150-450); RBC 4.25 m/uL (4.30-5.90); RDW 14.3 % (11.5-15.5); WBC 7.9 k/uL (3.8-10.6)
[2018-10-19 11:36] LABS: ALT 34 U/L (21-72); AST 19 U/L (17-59); Albumin 3.2 g/dL (3.5-5.0); Alkaline Phosphatase 71 U/L (38-126); Anion Gap 4 mmol/L; Blood Urea Nitrogen 11 mg/dL (9-20); Calcium 8.6 mg/dL (8.4-10.2); Carbon Dioxide 24 mmol/L (22-30); Chloride 108 mmol/L (98-107); Glucose 101 mg/dL (74-99); Potassium 4.3 mmol/L (3.5-5.1); Sodium 136 mmol/L (137-145); Total Bilirubin 0.4 mg/dL (0.2-1.3); Total Protein 5.4 g/dL (6.3-8.2)
--- NOTE | 2018-10-19 11:40 | XR ---
EXAMINATION TYPE: XR chest 2V DATE OF EXAM: 10/19/2018 COMPARISON: 08/22/2018 HISTORY: 68-year-old male with chest pain TECHNIQUE: PA and lateral views FINDINGS: Heart normal size. Left anterior chest wall pacemaker generator with right atrial and 2 right ventric ular leads. Aorta and pulmonary vasculature within normal limits. Consolidation in the right upper lobe. Stable suspected pleural parenchymal scarring at the periphera l left base. No sizable effusion seen on the lateral view. Retained epicardial pacer leads. IMPRESSION: 1. Findings suggest new right upper lobe pneumonia. 2. Follow-up after treatment to ensure clearance.
[2018-10-19 11:46] LABS: Partial Thromboplastin Time 27.1 sec (22.0-30.0); Prothrombin Time 10.6 sec (9.0-12.0)
[2018-10-19 11:50] LABS: Creatine Kinase 32 U/L (55-170)
[2018-10-19 12:03] LABS: Creatine Kinase MB 0.4 ng/mL (0.0-2.4); Troponin I <0.012 ng/mL (0.000-0.034)
[2018-10-19] MEDS ORDERED: AZITHROMYCIN 500 MG in SODIUM CHLORIDE 0.9% 250 ML IVPB STA (12:19)
[2018-10-19] MEDS ORDERED: SODIUM CHLORIDE 0.9% 1,000 ML IV ONE (12:59)
[2018-10-19] MEDS ORDERED: ASPIRIN 81 MG PO STA (12:59)
[2018-10-19] MEDS ORDERED: NITROGLYCERIN SL TABS 0.4 MG TAB SUBLINGUAL PRN ×2 (12:59→18:59)
[2018-10-19 14:15] VITALS: BMI 28.8
[2018-10-19 17:35] LABS: Creatine Kinase 34 U/L (55-170)
[2018-10-19 17:49] LABS: Creatine Kinase MB 0.3 ng/mL (0.0-2.4); Troponin I <0.012 ng/mL (0.000-0.034)
[2018-10-19] MEDS ORDERED: POLYETHYLENE GLYCOL 3350 17 GM POWD.PACK PO PRN (18:59)
[2018-10-19] MEDS ORDERED: IPRATROPIUM-ALBUTEROL 3 ML NEB INHALATION PRN (18:59)
[2018-10-19] MEDS ORDERED: ACETAMINOPHEN TAB 325 MG TAB PO PRN (18:59)
[2018-10-19] MEDS ORDERED: ALBUTEROL INHALER 60 PUFF/8 GM INHALER INHALATION PRN (18:59)
[2018-10-19] MEDS: SYMBICORT 160-4.5 MCG INHALER INHALATION SCH (19:53)
[2018-10-19] MEDS ORDERED: ATORVASTATIN 80 MG TAB PO SCH (21:00)
[2018-10-19] MEDS ORDERED: METOPROLOL TARTRATE 25 MG TAB PO SCH (21:00)
[2018-10-19] MEDS ORDERED: ISOSORBIDE MONONITRATE ER 15 MG TAB PO SCH (21:00)
[2018-10-19] MEDS ORDERED: LISINOPRIL 2.5 MG TAB PO SCH (21:00)
[2018-10-19] MEDS: GABAPENTIN 300 MG CAP PO SCH (21:12)
[2018-10-19] MEDS: buPROPion SR 150 MG TABLET.ER PO SCH (21:13)
[2018-10-19] MEDS: FERROUS SULFATE 325 MG TAB PO SCH (21:13)
[2018-10-19 22:30] LABS: Creatine Kinase 28 U/L (55-170)
[2018-10-19 22:44] LABS: Creatine Kinase MB 0.4 ng/mL (0.0-2.4); Troponin I <0.012 ng/mL (0.000-0.034)
--- NOTE | 2018-10-20 02:17 | HP ---
HISTORY AND PHYSICAL DATE OF ADMISSION: October 19, 2018 DATE OF SERVICE: October 19, 2018 PRESENTING COMPLAINT: Chest pain. HISTORY OF PRESENTING COMPLAINT: This is a pleasant 68-year-old patient whose chronic stable medical conditions include GERD, COPD, coronary artery disease. The patient in July had a cardiac catheterization following a positive stress test, that did show blockage in one of the grafts. On last admission, the patient did have a new pacemaker lead. The older lead was left in its place. There is some perforation into the cardiac wall. The patient subsequently did follow up at the [facility] and he was told that there was 1% chance of complications and the lead was taken out and 1% chance of complications the lead was left inside the heart. The patient decided to leave it in and this was on September 18, his appointment. Two days ago, the patient felt pain in his lower back and then he was short of breath for a good 15-20 minutes and next morning on Friday, the patient developed precordial pain that went to the back and this is when patient decided to come in. The pain did not radiate. The patient has been noticing that when he takes a deep breath, it hurts. Otherwise has no obvious cough. No fever. No chills. Decided to present. This patient was seen by me yesterday evening in the observation unit on October 19 2018. REVIEW OF SYSTEMS: CONSTITUTIONAL: None. HEENT: None. RESPIRATORY: None. CARDIOVASCULAR: As above. GASTROINTESTINAL: Heartburn. GENITOURINARY: None. MUSCULOSKELETAL: Pain in the lumbar joints. DERMATOLOGICAL, HEMATOLOGIC, LYMPHATICS: none. PSYCHIATRY none. NEUROLOGICAL none. PAST MEDICAL HISTORY: Atrial fibrillation, coronary artery disease, COPD, GERD, osteoarthritis, ventral hernia, lumbar disc disease, pacemaker lead in the cardiac muscle wall. PAST SURGICAL HISTORY: Coronary artery bypass, coronary artery stent, hernia repair, vasectomy in 1995, coronary artery bypass 2004, bilateral cataract, right knee arthroscopy, [employer] pacemaker, 3 stents to circumflex in November of 2016. SOCIAL HISTORY: Patient stopped smoking in March of 2016. Smoked for close to 48 years. Alcohol rarely. 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 Lives with significant other. FAMILY HISTORY: Of cancer. HOME MEDICATIONS: 1. Prednisone 5 mg a day. 2. Wellbutrin SR 150 mg b.i.d. 3. MiraLAX 17 grams p.o. q.h.s. p.r.n. 4. Protonix 40 mg a day. 5. Nitrostat 0.4 sublingual q.5 p.r.n. 6. Lopressor 50 mg in the morning, 25 in the evening. 7. Zestril 2.5 mg q.h.s. 8. Imdur ER 50 mg q.h.s. 9. DuoNeb t.i.d. p.r.n. 10.Neurontin 300 mg b.i.d. 11.Ferrous sulfate 325 p.o. b.i.d. 12.Plavix 75 mg a day. 13.Symbicort 160/4.5, 2 puffs b.i.d. 14.Lipitor 80 mg q.h.s. 15.Ventolin HFA 1 or 2 puffs b.i.d. p.r.n. 16.Tylenol 650 mg q.6h p.r.n. ALLERGIES: TO MOTRIN. PHYSICAL EXAMINATION: On examination temperature 98.3, pulse 65, respiratory 18, blood pressure 137/77, pulse ox 94 percent on room air. GENERAL APPEARANCE: Average build, lying in bed, comfortable. EYES: Pupils are equal. Conjunctivae normal. HEENT: External appearance of nose and ears normal. Oral cavity normal. NECK: JVD not raised. Mass not palpable. RESPIRATORY: Effort normal. LUNGS: Decreased breath sounds. CARDIOVASCULAR: First and second sounds normal. No edema. ABDOMEN: Soft, nontender. Liver and spleen not palpable. PSYCHIATRY: Alert and oriented x3. Mood and affect normal. NEUROLOGICAL: Pupils equal. Cranial nerves grossly intact. Power and sensation grossly intact. INVESTIGATIONS: White count 7.9, hemoglobin 12.7, potassium 4.3. BUN and creatinine normal. Troponin times 3 is negative. EKG tracing personally reviewed by me shows right bundle branch block pattern. Chest x-ray personally reviewed by me, I cannot really state the position of the pulmonary leads. Some of the cardiac leads. ASSESSMENT: 1. This is a patient who presents with pain in the left anterior chest pain going around the back and also short of breath prior to that. My concern is the leads is for further perforated moved in the myocardial wall. The patient also gets his pains with a deep breath and it is probably related to the same. 2. No evidence of pneumonia as there is no infiltrate, no white count. No fever. No cough. Hence we will DC the antibiotics. 3. Coronary artery disease, prior history of bypass. 4. Chronic obstructive pulmonary disease in an ex-smoker. 5. Gastroesophageal reflux disease. 6. Paroxysmal atrial fibrillation chronically on Xarelto. 7. Right bundle branch block. PLAN: Home medications are continued. Care was discussed with the patient and at the bedside. Cardiology was consulted. We will order a CT scan of the chest with contrast to see if that can determine the position of the ventricular lead. Cardiology was consulted. Copy to Dr. Emilia Bob. MMODL / IJN: [id number] /
[2018-10-20 04:00] LABS: Cholesterol 94 mg/dL (<200); HDL Cholesterol 41 mg/dL (40-60); LDL Cholesterol,Calculated 35 mg/dL (0-99); Triglycerides 90 mg/dL (<150)
[2018-10-20 04:11] VITALS: RESP 18
[2018-10-20] MEDS ORDERED: PANTOPRAZOLE 40 MG TABLET PO SCH (07:30)
[2018-10-20] MEDS: SYMBICORT 160-4.5 MCG INHALER INHALATION SCH (07:39)
--- NOTE | 2018-10-20 08:33 | CT ---
EXAMINATION TYPE: CT chest wo/w con DATE OF EXAM: 10/20/2018 COMPARISON: 02/13/2017 HISTORY: Difficulty breathing. Pacemaker lead perforation. CT DLP: 644.4 mGycm Automated exposure control for dose reduction was used. CONTRAST: CT scan of the chest is performed without and with IV Contrast, patient injected with 100 mL of Isovu e 300. FINDINGS: LUNGS: Masslike infiltrate measuring 3.7 x 1.9 cm right apical region with air bronchograms may refle ct pneumonia. Mass of other etiology not excluded including malignancy. Follow-up until resolution an d strict clinical correlation advised. Peripheral groundglass infiltrate noted as well. Emphysematous changes identified particularly within the right apical region. Small bilateral pleural effusions. L eft basilar atelectasis. 4.5 mm right upper lobe nodule image 27. MEDIASTINUM: There are no greater than 1 cm hilar or mediastinal lymph nodes. No pericardial effusi on is seen. Thoracic aorta is of normal caliber. The heart is enlarged. Coronary artery calcificatio ns. UPPER ABDOMEN: Upper abdominal ventral hernia noted which contains fat. Small hiatal hernia. OTHER: Pacer device is noted with the leads identified within the right atrium and right ventricle r espectively. Pacer wires appear to be grossly intact however motion does limit evaluation. Epicardial leads are noted. IMPRESSION: 1. Findings likely reflecting right upper lobe pneumonia however follow-up until resolution is advise d. 2. Pacer wires appear to be grossly intact however motion does limit evaluation. Correlate clinically . Retained epicardial leads identified. 3. Small bilateral pleural effusions and left basilar atelectasis. Right upper lobe emphysematous jenny nge.
[2018-10-20] MEDS ORDERED: CLOPIDOGREL 75 MG TAB PO SCH (09:00)
[2018-10-20] MEDS ORDERED: ASPIRIN 325 MG TAB PO SCH (09:00)
[2018-10-20] MEDS ORDERED: predniSONE 5 MG TAB PO SCH (09:00)
[2018-10-20] MEDS ORDERED: METOPROLOL TARTRATE 50 MG TAB PO SCH (09:00)
[2018-10-20] MEDS: FERROUS SULFATE 325 MG TAB PO SCH (10:17)
[2018-10-20] MEDS: GABAPENTIN 300 MG CAP PO SCH (10:18)
[2018-10-20] MEDS: buPROPion SR 150 MG TABLET.ER PO SCH (10:18)
[2018-10-20 11:35] VITALS: BP 135/68; PULSE 71; TEMP 97.8
--- NOTE | 2018-10-20 13:26 | P.CRDCN ---
History of Present Illness History of present illness: This is a 68 showed male past medical history significant for coronary artery disease status post bypass grafting and subsequent angioplasty, permanent pacemaker implantation with history of ventricular lead displacement, hypertension and dyslipidemia. He recently presented to the hospital and was found to have pacemaker malfunction due to broken ventricular lead insulation. A new ventricular lead was placed by Dr. Joaquin on 08/19 and capping of the old ventricular lead. He was referred to [facility] with Dr. Oseguera for recommendations on lead extraction. He is planning for lead extraction within the next month or so. He presented to the hospital with pleuritic type chest pain in the left precordial region for 2 days associated with fever and chills. The pain was worse with deep inspiration or cough. Chest x-ray on admission reveals right upper lobe pneumonia. He has been initiated on antibiotics. CT of the chest obtained reveals right upper lobe pneumonia, pacer wire grossly intact with retained epicardial leads identified. Small bilateral pleural effusions and left basilar atelectasis noted. Right upper lobe emphysematous changes. EKG reveals right bundle branch block pattern. Most recent catheterization in June 2018 reveals total occlusion of the RCA and LAD with a patent ZABALA. One of the vein grafts to the OM is occluded but the vein graft to second OM is widely patent at the site of the previous stenting with good flow to 40% lesion within the body, tlingit & haida circumflex is widely patent at the site of stenting. Most recent echocardiogram obtained 08/2018 reveals preserved left ventricular systolic function with ejection fraction 55-60%. Laboratory data reviewed, WBC 7.9, hemoglobin 12.7, platelets 210, sodium 136, potassium 4.3, creatinine 0.77, magnesium 2.0, cardiac enzymes negative 3, NTproBNP 653, LDL 35. Current cardiac medications include atorvastatin 80 mg daily, Plavix 75 mg daily , Imdur 15 mg daily, lisinopril 2.5 mg daily, Lopressor 50 mg in the morning and 25 mg at bedtime, Xarelto 15 mg daily. At the time of my exam: CONSTITUTIONAL: Denies fever. Denies chills. EYES: Denies blurred vision. Denies vision changes. Denies eye pain. EARS, NOSE, MOUTH & THROAT: Denies headache. Denies sore throat. Denies ear pain. CARDIOVASCULAR: Complains of pleuritic chest pain. Denies shortness of breath. Denies orthopnea. Denies PND. Denies palpitations. RESPIRATORY: Complains of cough. GASTROINTESTINAL: Denies abdominal pain. Denies diarrhea. Denies constipation. Denies nausea. Denies vomiting. MUSCULOSKELETAL: Denies myalgias. INTEGUMENTARY: Denies pruitis. Denies rash. NEUROLOGIC: Denies numbness. Denies tingling. Denies weakness. PSYCHIATRIC: Denies anxiety. Denies depression. ENDOCRINE: Denies fatigue. Denies weight change. Denies polydipsia. Denies polyurina. GENITOURINARY: Denies burning, hematuria or urgency with micturation. HEMATOLOGIC: Denies history of anemia. Denies bleeding. Blood pressure 151/81 heart rate 82 afebrile maintaining oxygen saturation on room air GENERAL: This is a 68-year-old male in no apparent distress at the time of my examination. HEENT: Head is atraumatic, normocephalic. Pupils are equal, round. Sclerae anicteric. Conjunctivae are clear. Mucous membranes of the mouth are moist. Neck is supple. There is no jugular venous distention. No carotid bruit is heard. LUNGS: Clear to auscultation no wheezes, rales or rhonchi. No chest wall tenderness is noted on palpation or with deep breathing. HEART: Regular rate and rhythm without murmurs, rubs or gallops. S1 and S2 heard. ABDOMEN: Soft, nontender. Bowel sounds are heard. No organomegaly noted. EXTREMITIES: No evidence of peripheral edema and no calf tenderness noted. VASCULAR: Radial and dorsalis pedis pulses palpated, no evidence of clubbing. NEUROLOGIC: Patient is awake, alert and oriented x3. ASSESSMENT Pleuritic chest pain in the presence of pneumonia Pneumonia History of coronary artery disease status post bypass grafting with patent ZABALA and pain SVG with no evidence of significant progression Hypertension Dyslipidemia Paroxysmal atrial fibrillation on correction anticoagulation. PLAN An acute coronary event has been ruled out with no EKG evidence of ischemia and negative cardiac enzymes. Ongoing medical management of pneumonia. Chest pain is pleuritic and likely associated with coughing and pneumonia. Thank you kindly for this consultation. Nurse Practitioner note has been reviewed, I agree with a documented findings and plan of care. Patient was seen and examined. Past Medical History Past Medical History: Atrial Fibrillation, Coronary Artery Disease (CAD), COPD, GERD/Reflux, Osteoarthritis (OA), Pneumonia, Respiratory Disorder Additional Past Medical History / Comment(s): Bradycardia with pacemaker, lumbar disc disorder, small hiatal hernia, ventral hernia, anemia. History of Any Multi-Drug Resistant Organisms: None Reported Past Surgical History: Coronary Bypass/CABG, Heart Catheterization, Heart Catheterization With Stent, Hernia Repair, Orthopedic Surgery, Pacemaker Additional Past Surgical History / Comment(s): Vasectomy 1995, 3 vessek CABG 2004, KELLY CATARACT, VASECTOMY, BONE INFUSION MIDDLE LT FINGER CRUSHING INJURY 1988, rt knee arthroscopy, [employer] pacemaker placed 11/04/16, 3 stents to Circ 12/16/16, ventricular lead replacement 08/21/2018, hematoma evacuation from pacemaker site 08/23/2018 Past Anesthesia/Blood Transfusion Reactions: No Reported Reaction Date of Last Stent Placement:: 12/16/16 Type of Cardiac Device: Permanent Pacemaker Device Placement Date:: 11/04/16 Past Psychological History: No Psychological Hx Reported Additional Psychological History / Comment(s): Pt resides with his spouse. 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 He has a nebulizer. Smoking Status: Former smoker Past Alcohol Use History: Rare Additional Past Alcohol Use History / Comment(s): Quit smoking 03-25-16, smoked since age 17. Past Drug Use History: None Reported - Past Family History Father Family Medical History: Cancer Additional Family Medical History / Comment(s): . Mother Family Medical History: Coronary Artery Disease (CAD) Additional Family Medical History / Comment(s): HEART PROBLEMS Medications and Allergies Home Medications Medication Instructions Recorded Confirmed Type Gabapentin [Neurontin] 300 mg PO BID 10/08/14 10/19/18 History Nitroglycerin Sl Tabs [Nitrostat] 0.4 mg SUBLINGUAL Q5M PRN 10/08/14 10/19/18 History Ferrous Sulfate [Iron (65 MG 325 mg PO BID 09/03/16 10/19/18 History Elemental)] Atorvastatin [Lipitor] 80 mg PO HS #90 tab 09/07/16 10/19/18 Rx Clopidogrel [Plavix] 75 mg PO DAILY #90 tab 09/07/16 10/19/18 Rx Polyethylene Glycol 3350 [Miralax] 17 gm PO HS PRN 10/30/16 10/19/18 History Acetaminophen Tab [Tylenol] 650 mg PO Q6H PRN 07/19/18 10/19/18 History Albuterol Inhaler [Ventolin Hfa 1 - 2 puff INHALATION RT-BID PRN 07/19/18 History Inhaler] Budesonide/Formoterol Fumarate 2 puff INHALATION RT-BID 07/19/18 10/19/18 History [Symbicort 160-4.5 Mcg Inhaler] Ipratropium-Albuterol Nebulize 3 ml INHALATION RT-TID PRN 07/19/18 10/19/18 History [Duoneb 0.5 mg-3 mg/3 ml Soln] Metoprolol Tartrate [Lopressor] 25 mg PO HS 07/19/18 10/19/18 History Metoprolol Tartrate [Lopressor] 50 mg PO QAM 07/19/18 10/19/18 History Rivaroxaban [Xarelto] 15 mg PO AC-SUPPER 07/19/18 10/19/18 History buPROPion HCL [Wellbutrin SR] 150 mg PO BID 07/19/18 10/19/18 History predniSONE 5 mg PO DAILY 07/19/18 10/19/18 History Lisinopril [Zestril] 2.5 mg PO HS 08/19/18 10/19/18 History Pantoprazole Sodium [Protonix] 40 mg PO DAILY 08/19/18 10/19/18 History Isosorbide Mononitrate ER [Imdur] 15 mg PO HS 10/19/18 10/19/18 History Allergies Allergy/AdvReac Type Severity Reaction Status Date / Time ibuprofen [From Motrin IB] AdvReac Unknown Verified 10/19/18 10:21 Physical Exam Vitals: Vital Signs Temp Pulse Pulse Resp BP BP Pulse Ox 10/20/18 07:44 97.5 F L 82 18 151/81 91 L 10/20/18 04:00 99.2 F 81 18 119/68 92 L 10/20/18 00:00 80 16 10/19/18 23:49 97.9 F 80 16 136/75 92 L 10/19/18 20:08 71 10/19/18 20:00 83 16 10/19/18 19:56 71 10/19/18 19:49 98.2 F 83 16 147/76 92 L 10/19/18 15:38 98 10/19/18 14:30 98.7 F 61 18 125/77 93 L 10/19/18 13:00 76 18 111/79 97 10/19/18 12:30 110/66 10/19/18 12:00 76 18 106/72 97 Intake and Output 10/19/18 10/20/18 10/20/18 22:59 06:59 14:59 Intake Total 200 240 Balance 200 240 Intake: Oral 200 240 Other: Voiding Method Toilet Toilet # Voids 1 1 Results 10/19/18 10:55 10/19/18 10:55 Cardiac Enzymes 10/19/18 10/19/18 10/19/18 Range/Units 10:55 10:55 16:55 AST 19 (17-59) U/L CK-MB (CK-2) 0.4 0.3 (0.0-2.4) ng/mL Troponin I <0.012 <0.012 (0.000-0.034) ng/mL 10/19/18 Range/Units 22:02 AST (17-59) U/L CK-MB (CK-2) 0.4 (0.0-2.4) ng/mL Troponin I <0.012 (0.000-0.034) ng/mL Coagulation 10/19/18 Range/Units 10:55 PT 10.6 (9.0-12.0) sec APTT 27.1 (22.0-30.0) sec Lipids 10/19/18 Range/Units 10:55 Triglycerides 90 (<150) mg/dL Cholesterol 94 (<200) mg/dL HDL Cholesterol 41 (40-60) mg/dL CBC 10/19/18 Range/Units 10:55 WBC 7.9 (3.8-10.6) k/uL RBC 4.25 L (4.30-5.90) m/uL Hgb 12.7 L (13.0-17.5) gm/dL Hct 39.1 (39.0-53.0) % Plt Count 210 (150-450) k/uL Comprehensive Metabolic Panel 10/19/18 Range/Units 10:55 Sodium 136 L (137-145) mmol/L Potassium 4.3 (3.5-5.1) mmol/L Chloride 108 H (98-107) mmol/L Carbon Dioxide 24 (22-30) mmol/L BUN 11 (9-20) mg/dL Creatinine 0.77 (0.66-1.25) mg/dL Glucose 101 H (74-99) mg/dL Calcium 8.6 (8.4-10.2) mg/dL AST 19 (17-59) U/L ALT 34 (21-72) U/L Alkaline Phosphatase 71 (38-126) U/L Total Protein 5.4 L (6.3-8.2) g/dL Albumin 3.2 L (3.5-5.0) g/dL Current Medications Generic Name Dose Route Start Last Admin Trade Name Freq PRN Reason Stop Dose Admin Acetaminophen 650 mg 10/19/18 18:59 Tylenol Tab PO Q6H PRN Pain Albuterol/Ipratropium 3 ml 10/19/18 18:59 10/19/18 19:56 Duoneb 0.5 Mg-3 Mg/3 Ml Soln INHALATION 3 ml RT-TID PRN Administration Shortness Of Breath Aspirin 325 mg 10/20/18 09:00 10/20/18 10:17 Aspirin PO 325 mg DAILY RODNEY Administration Atorvastatin Calcium 80 mg 10/19/18 21:00 10/19/18 21:12 Lipitor PO 80 mg HS RODNEY Administration Budesonide/Formoterol Fumarate 2 puff 10/19/18 20:00 10/20/18 07:39 Symbicort 160-4.5 Mcg Inhaler INHALATION 2 puff RT-BID RODNEY Administration Bupropion HCl 150 mg 10/19/18 21:00 10/20/18 10:18 Wellbutrin Sr PO 150 mg BID RODNEY Administration Clopidogrel Bisulfate 75 mg 10/20/18 09:00 10/20/18 10:17 Plavix PO 75 mg DAILY RODNEY Administration Ferrous Sulfate 325 mg 10/19/18 21:00 10/20/18 10:17 Feosol PO 325 mg BID RODNEY Administration Gabapentin 300 mg 10/19/18 21:00 10/20/18 10:18 Neurontin PO 300 mg BID RODNEY Administration Isosorbide Mononitrate 15 mg 10/19/18 21:00 10/19/18 21:13 Imdur PO 15 mg HS RODNEY Administration Lisinopril 2.5 mg 10/19/18 21:00 10/19/18 21:13 Zestril PO 2.5 mg HS RODNEY Administration Metoprolol Tartrate 25 mg 10/19/18 21:00 10/19/18 21:13 Lopressor PO 25 mg HS RODNEY Administration Metoprolol Tartrate 50 mg 10/20/18 09:00 10/20/18 10:17 Lopressor PO 50 mg QAM RODNEY Administration Nitroglycerin 0.4 mg 10/19/18 18:59 Nitrostat SUBLINGUAL Q5M PRN Chest Pain Pantoprazole Sodium 40 mg 10/20/18 07:30 10/20/18 10:17 Protonix PO 40 mg AC-BRKFST [facility] Administration Polyethylene Glycol 17 gm 10/19/18 18:59 Miralax PO HS PRN Constipation Prednisone 5 mg 10/20/18 09:00 10/20/18 10:18 PO 5 mg DAILY RODNEY Administration Rivaroxaban 15 mg 10/20/18 17:30 Xarelto PO AC-SUPPER [facility] Intake and Output 10/19/18 10/20/18 10/20/18 22:59 06:59 14:59 Intake Total 200 240 Balance 200 240 Intake: Oral 200 240 Other: Voiding Method Toilet Toilet # Voids 1 1 10/19/18 10:55 10/19/18 10:55
--- NOTE | 2018-10-20 15:27 | CONS ---
CONSULTATION PULMONARY CRITICAL CARE CONSULT: DATE OF SERVICE: 10/20/2018 This is a 68-year-old male who I have seen in the past. He does have a history of underlying moderate stage II COPD. FEV1 is 71% of predicted. He comes into the emergency room on October 19 complaining of shortness of breath and chest pain. The chest pain is more left-sided than anything else. It is like a tightness in his chest. The patient also had some cough. The cough is typically nonproductive. He is short of breath. The patient did have an episode of diarrhea and nausea with vomiting. The patient is feeling better. He had a evaluation here in the emergency room, which showed an abnormality in the right upper lobe consistent with underlying pneumonia. A CT scan confirmed that. He denies any fever, chills. There is no abdominal pain. No other complaints for that matter. I see him apparently about every 6 months. His breathing medications include albuterol and Atrovent updrafts, Symbicort, and prednisone 5 mg a day. PRIMARY CARE PHYSICIAN: Dr. Emilia real in [facility]. His current medications include gabapentin, nitroglycerin, iron, polyethylene glycol or MiraLAX, Tylenol, albuterol inhaler, Symbicort, updrafts with DuoNeb, metoprolol, Xarelto, Wellbutrin, prednisone 5 mg, lisinopril, Protonix, Imdur and Plavix. Allergies are IBUPROFEN. PAST MEDICAL HISTORY: Positive for as I mentioned above COPD. It is moderate in severity/stage II. Patient also has a history of atrial fibrillation, CAD, gastroesophageal reflux disease, DJD, and pneumonia. He also suffers from a ventral hernia, history of anemia and hiatal hernia. In addition, the patient has had bypass grafting and heart catheterization with stents. He has also had hernia repair, orthopedic procedures, and pacemaker insertion. In addition, the patient has had bilateral cataract surgery, vasectomy, right knee arthroscopy, pacemaker placement, multiple stents, and other surgical procedures. SOCIAL HISTORY: Positive for previous tobacco use. Does not smoke currently. Alcohol use is rare. Illicit drugs are negative. FAMILY HISTORY: Positive for cancer and cardiac disease. REVIEW OF SYSTEMS: CONSTITUTIONAL: Negative. NEUROLOGIC: Negative. HEENT: Negative. CARDIOVASCULAR: Left-sided chest discomfort. PULMONARY: Shortness of breath, cough, nonproductive. GI/: Negative. RHEUMATOLOGIC/IMMUNOLOGIC: Negative. ENDOCRINOLOGIC: Negative. DERMATOLOGIC: Negative. Current vital signs are reviewed, temperature is 97.8, heart rate 71, respiratory rate 18, blood pressure 135/68, mean is 90 and room air saturations is 95%. Appears in no acute distress. Looks pretty comfortable. in the room with him. HEENT examination is grossly unremarkable. Mucous membranes are moist. No oral lesions. NECK: Supple. Full range of motion. No adenopathy or thyromegaly. Neck veins are flat. Cardiovascular examination reveals regular rhythm and rate. S1, S2 normal. No S3, S4, murmurs. LUNGS: Reveal a few scattered rhonchi. Some expiratory wheezes. Some mild crackles. Breath sounds equal bilaterally. ABDOMEN: Soft. Bowel sounds are heard. Extremities are intact. There is no cyanosis, clubbing, or edema. Skin without rash. Neurologic examination is brief but nonfocal. CHEST X-RAY: Shows some right upper lobe infiltrate. CT scan again confirms a right upper lobe pneumonia. LABS: Reviewed. White count 7.9, hemoglobin 12.7, hematocrit 39.1, platelet count 210,000. PT/INR, PTT normal. Sodium 136, potassium 4.3, chloride 108, CO2 of 24. BUN and creatinine were 11 and 0.77. Albumin 3.2. Influenza studies were negative for both influenza A and B. N terminal proBNP 653. Medications are reviewed. ASSESSMENT: 1. Mild chronic obstructive pulmonary disease exacerbation complicated by right upper lobe pneumonia. 2. Previous history of heavy tobacco use. 3. History of atrial fibrillation. 4. Coronary artery disease, status post bypass grafting. 5. Gastroesophageal reflux disease. 6. History of stage II/moderate chronic obstructive pulmonary disease. 7. Degenerative joint disease. 8. History of pneumonia. 9. History of hiatal hernia. 10.History of ventral hernia. 11.Status post pacemaker insertion. 12.Status post heart catheterization with stent placement. 13.Multiple other medical problems and comorbidities. PLAN: From my perspective, the patient could be discharged. The patient should be discharged home on antibiotics. He should take the antibiotics for full 7-10 days. The patient will follow up with me in the office. The patient knows to continue his prednisone 5 mg a day. His Symbicort 160/4.5 two puffs twice a day and his DuoNeb to be used q.i.d. and p.r.n. Additional recommendations and suggestions are forthcoming. When I see him in the office, the patient will have a followup chest x-ray. The patient should also follow up with his primary care physician, Dr. Emilia Bob. CHEVY / YASSINE: [id number] /
[2018-10-20] MEDS ORDERED: AZITHROMYCIN 500 MG in SODIUM CHLORIDE 0.9% 250 ML IVPB SCH (16:00)
[2018-10-20] MEDS ORDERED: RIVAROXABAN 15 MG TAB PO SCH (17:30)
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
== END 2018-10-20 16:17 | disposition home or self-care (01) ==
LOC: EC 09:53 → 1SOBS 13:14
PROVIDERS: ADMIT Hospitalist; ATTEND Hospitalist
DX: J18.1 Lobar pneumonia, unspecified organism (principal); J44.1 Chronic obstructive pulmonary disease with (acute) exacerbation; J44.0 Chronic obstructive pulmonary disease with (acute) lower respiratory infection; E78.5 Hyperlipidemia, unspecified; I10 Essential (primary) hypertension; I48.0 Paroxysmal atrial fibrillation; I45.10 Unspecified right bundle-branch block; M51.36 Other intervertebral disc degeneration, lumbar region; I25.82 Chronic total occlusion of coronary artery; T82.198S Other mechanical complication of other cardiac electronic device, sequela; I25.810 Atherosclerosis of coronary artery bypass graft(s) without angina pectoris; D64.9 Anemia, unspecified; K43.9 Ventral hernia without obstruction or gangrene; K44.9 Diaphragmatic hernia without obstruction or gangrene; E66.9 Obesity, unspecified; Z68.28 Body mass index [BMI] 28.0-28.9, adult; R19.7 Diarrhea, unspecified; R11.2 Nausea with vomiting, unspecified; K21.9 Gastro-esophageal reflux disease without esophagitis; M19.90 Unspecified osteoarthritis, unspecified site; Z79.899 Other long term (current) drug therapy; Z79.02 Long term (current) use of antithrombotics/antiplatelets; Z79.01 Long term (current) use of anticoagulants; Z79.51 Long term (current) use of inhaled steroids; Z79.52 Long term (current) use of systemic steroids; Z88.6 Allergy status to analgesic agent; Z95.0 Presence of cardiac pacemaker; Z95.1 Presence of aortocoronary bypass graft; Z95.5 Presence of coronary angioplasty implant and graft; Z87.891 Personal history of nicotine dependence; Z87.01 Personal history of pneumonia (recurrent); Z98.42 Cataract extraction status, left eye; Z98.41 Cataract extraction status, right eye; Z98.52 Vasectomy status; Z80.9 Family history of malignant neoplasm, unspecified; Z82.49 Family history of ischemic heart disease and other diseases of the circulatory system
CPT/HCPCS: 96361; 96366 ×2; 96365; 96367; 99285; 36415; 94640 ×4; 93005; 83880; 80061; 80053; 82550; 82553; 83735; 84484; 85025; 85610; 85730; 87040; 87502; 71046; 71270; G0378 ×2; S0106 ×2; J0456; J0696; J7512; Q9967

== ENCOUNTER 2019-04-27 00:12 | Emergency (ER) | payer OTHER, BC, MEDICARE ==
--- NOTE | 2019-04-27 01:00 | XR ---
EXAM: XR Chest, 2 Views CLINICAL HISTORY: Pain TECHNIQUE: Frontal and lateral views of the chest. COMPARISON: 11/03/2018 FINDINGS: Lungs: Hypoventilatory lungs. Similar retrocardiac opacity, possibly atelectasis or scar. Pleural space: Unremarkable. No pneumothorax. Heart: Unremarkable. No cardiomegaly. Mediastinum: Stable postoperative mediastinum. Bones/joints: No acute osseous abnormality. Tubes, lines and devices: Stable left chest wall cardiac pacemaker. Telemetry leads overlie the patient. IMPRESSION: No significant interval change since prior exam.
[2019-04-27 01:16] LABS: Basophils # (A) 0.1 k/uL (0-0.2); Basophils % (A) 1 %; Eosinophils # (A) 0.1 k/uL (0-0.7); Eosinophils % (A) 1 %; HCT 44.4 % (39.0-53.0); HGB 15.3 gm/dL (13.0-17.5); Lymphocytes # (A) 2.4 k/uL (1.0-4.8); Lymphocytes % (A) 26 %; MCH 30.8 pg (25.0-35.0); MCHC 34.4 g/dL (31.0-37.0); MCV 89.7 fL (80.0-100.0); Mean Platelet Volume 7.2; Monocytes # (A) 0.8 k/uL (0-1.0); Monocytes % (A) 9 %; Neutrophils # (A) 5.7 k/uL (1.3-7.7); Neutrophils % (A) 62 %; Platelet Count 286 k/uL (150-450); RBC 4.95 m/uL (4.30-5.90); RDW 15.1 % (11.5-15.5); WBC 9.3 k/uL (3.8-10.6)
[2019-04-27 01:25] LABS: ALT 27 U/L (21-72); AST 34 U/L (17-59); African American GFR (CKD) >90 (>60 ml/min/1.73 sqM); Albumin 3.8 g/dL (3.5-5.0); Alkaline Phosphatase 77 U/L (38-126); Anion Gap 5 mmol/L; Blood Urea Nitrogen 15 mg/dL (9-20); Calcium 9.2 mg/dL (8.4-10.2); Carbon Dioxide 22 mmol/L (22-30); Chloride 107 mmol/L (98-107); Glucose 114 mg/dL (74-99); Sodium 134 mmol/L (137-145); Total Bilirubin 0.5 mg/dL (0.2-1.3); Total Protein 6.5 g/dL (6.3-8.2)
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
--- NOTE | 2019-04-27 01:35 | CT ---
EXAM: CT Head Without Intravenous Contrast CLINICAL HISTORY: Pain TECHNIQUE: Axial computed tomography images of the head/brain without intravenous contrast. CTDI is 0.085, 0.085, 45.2, 11.3, 8.1 mGy and DLP is 1753.6 mGy-cm. This CT exam was performed using one or more of the following dose reduction techniques: automated exposure control, adjustment of the mA and/or kV according to patient size, and/or use of iterative reconstruction technique. COMPARISON: No relevant prior studies available. FINDINGS: Brain: Unremarkable. No acute hemorrhage, large hypodensity, or significant mass effect. Ventricles: Unremarkable. No ventriculomegaly. Bones/joints: Unremarkable. No acute fracture. Soft tissues: Unremarkable. Sinuses: Unremarkable. Mastoid air cells: Partial opacification of the inferior left mastoid air cells. IMPRESSION: No acute intracranial hemorrhage or calvarial fracture. EXAM: CT Cervical Spine Without Intravenous Contrast CLINICAL HISTORY: Pain TECHNIQUE: Axial computed tomography images of the cervical spine without intravenous contrast. CTDI is 0.085, 0.085, 45.2, 11.3, 8.1 mGy and DLP is 1753.6 mGy-cm. This CT exam was performed using one or more of the following dose reduction techniques: automated exposure control, adjustment of the mA and/or kV according to patient size, and/or use of iterative reconstruction technique. COMPARISON: No relevant prior studies available. FINDINGS: Vertebrae: No acute fracture or malalignment. Straightening of the normal cervical lordosis. Discs/spinal canal/neural foramina: Disc height loss, osteophytes, uncovertebral spurs, and facet arthropathy. Multilevel foraminal narrowing. No significant osseous spinal stenosis. Soft tissues: Unremarkable. Lung apices: Biapical pleural parenchymal scar and emphysematous changes. IMPRESSION: No acute fracture or malalignment.
[2019-04-27 01:49] LABS: Prothrombin Time 10.7 sec (9.0-12.0)
[2019-04-27 01:50] LABS: Potassium 4.4 mmol/L (3.5-5.1)
--- NOTE | 2019-04-27 01:57 | CT ---
EXAM: CT Chest Without Intravenous Contrast CLINICAL HISTORY: Pain TECHNIQUE: Axial computed tomography images of the chest without intravenous contrast. CTDI is 0.085 0.085, 45.2, 11.3, 8.1 mGy and DLP is 1753.6 mGy- cm. This CT exam was performed using one or more of the following dose reduction techniques: automated exposure control, adjustment of the mA and/or kV according to patient size, and/or use of iterative reconstruction technique. COMPARISON: No relevant prior studies available. FINDINGS: Lungs: Unremarkable. No mass. No consolidation. Pleural space: Small left pleural effusion. Left pleural calcifications. No pneumothorax. Heart: Calcification of the coronary arteries. Pericardial calcifications. No significant pericardial effusion. Mediastinum: Postoperative mediastinum. Small hiatal hernia. Bones/joints: No acute osseous abnormality. Degenerative changes of the spine. Soft tissues: Diastases of the rectus musculature. Vasculature: Aortic atherosclerosis. No abdominal aortic aneurysm. Lymph nodes: Subcentimeter right upper lobe nodule along the minor fissure is favored to represent an intrapulmonary lymph node. Liver: Subcentimeter focus of hypoattenuation in the liver is too small to characterize. IMPRESSION: Small left pleural effusion.
[2019-04-27] MEDS ORDERED: LIDOCAINE 5% PATCH TOPICAL STA (02:04)
[2019-04-27 02:38] VITALS: BP 120/69; PULSE 54; RESP 18; TEMP 97.9
== END 2019-04-27 02:38 | disposition home or self-care (01) ==
LOC: EC 00:12
DX: S20.212A Contusion of left front wall of thorax, initial encounter (principal); I48.91 Unspecified atrial fibrillation; I25.10 Atherosclerotic heart disease of native coronary artery without angina pectoris; J44.9 Chronic obstructive pulmonary disease, unspecified; D64.9 Anemia, unspecified; Z95.0 Presence of cardiac pacemaker; Z95.1 Presence of aortocoronary bypass graft; Z95.818 Presence of other cardiac implants and grafts; Z95.5 Presence of coronary angioplasty implant and graft; Z87.891 Personal history of nicotine dependence; Z82.49 Family history of ischemic heart disease and other diseases of the circulatory system; Z79.51 Long term (current) use of inhaled steroids; Z79.01 Long term (current) use of anticoagulants; Z79.52 Long term (current) use of systemic steroids; Z79.899 Other long term (current) drug therapy; Z88.6 Allergy status to analgesic agent; V89.2XXA Person injured in unspecified motor-vehicle accident, traffic, initial encounter; Y92.89 Other specified places as the place of occurrence of the external cause
CPT/HCPCS: 36415; 70450; 71046; 71250; 72125; 80053; 85025; 85610; 93005; 99285

== ENCOUNTER → 2021-05-14 | Outpatient (CLI) | payer BC, OTHER ==
--- NOTE | 2021-05-15 07:29 | XR ---
EXAMINATION TYPE: XR chest 2V DATE OF EXAM: 05/14/2021 COMPARISON: 04/27/2019 TECHNIQUE: PA and lateral views submitted. HISTORY: Cough FINDINGS: The heart size is within normal limits and there is postoperative change with cardiac device. Arthrop athy of the shoulders. Coarsened interstitium with subsegmental areas of consolidation. Underlying CO PD noted. Degenerative change of the spine. There is an epicardial lead. Small bilateral pleural effu sions. IMPRESSION: 1. COPD correlate for chronic interstitial lung disease or venous congestion. There are small stable bilateral pleural effusions.
== END | disposition home or self-care (01) ==
LOC: RADXRMAIN 15:21
PROVIDERS: ATTEND Family Medicine
DX: J44.9 Chronic obstructive pulmonary disease, unspecified (principal); J90 Pleural effusion, not elsewhere classified
CPT/HCPCS: 71046

== ENCOUNTER → 2021-11-16 | Outpatient (CLI) | payer BC, OTHER ==
--- NOTE | 2021-11-16 19:36 | XR ---
EXAMINATION TYPE: XR chest 2V DATE OF EXAM: 11/16/2021 COMPARISON: Chest x-ray 05/14/[address] chest 04/27/2019 HISTORY: Coronary artery disease, I 25.1 TECHNIQUE: Frontal and lateral views of the chest are obtained. FINDINGS: Generators present in the left pectoral region, there are leads in the right atrium and ve ntricle as on prior, patient is post median sternotomy. Interstitium is diffusely increased. No evide nt pneumothorax or pleural effusion, there is chronic blunting the left costophrenic angle. Prominent lung volumes suggest underlying COPD. Epicardial pacing leads are in place. Cardiac mediastinal silh ouette is stable. There are coronary artery calcifications present. IMPRESSION: Difficult to exclude a component of interstitial edema, interstitial lung disease. Chron ic pleural reaction. There is underlying emphysema.
[2021-11-16 22:59] LABS: HCT 47.4 % (39.6-50.0); MCH 29.6 pg (27.0-32.0); MCHC 31.6 g/dL (32.0-37.0); MCV 93.7 fL (80.0-97.0); Mean Platelet Volume 9.9 fL (9.5-12.2); NRBC Per 100 WBC 0 /100 WBCS (0.0-0.0); Platelet Count 285 X 10*3/uL (140-440); RBC 5.06 X 10*6/uL (4.40-5.60); RDW 14.3 % (11.5-14.5); WBC 10.84 X 10*3/uL (4.50-10.00)
[2021-11-16 23:18] LABS: African American GFR (CKD) 100.6 (60.0-200.0); Anion Gap 12.1 mmol/L (10.00-18.00); BUN/Creat Ratio 13.56 Ratio (12.00-20.00); Blood Urea Nitrogen 12.2 mg/dL (9.0-27.0); Calcium 9.3 mg/dL (8.7-10.3); Carbon Dioxide 24.9 mmol/L (20.0-27.5); Non-African American GFR(CKD) 86.8 (60.0-200.0); Potassium 4.2 mmol/L (3.5-5.5)
[2021-11-17 13:12] LABS: Coronavirus SARS CoV-2 Not Detected (Not Detected)
== END | disposition home or self-care (01) ==
LOC: LABPAT 15:47
PROVIDERS: ATTEND Internal Medicine Interventional Cardiology
DX: Z20.822 Contact with and (suspected) exposure to COVID-19 (principal); I25.10 Atherosclerotic heart disease of native coronary artery without angina pectoris
CPT/HCPCS: 80048; 85027; 71046; U0003; U0005

== ENCOUNTER → 2021-11-20 | Day surgery (SDC) | payer BC, OTHER ==
[2021-11-19 09:22] VITALS: BMI 23.1
[~2021-11-20] MED LIST changes: +ACETAMINOPHEN TAB 325 MG TAB PO PRN; +ASPIRIN 325 MG TAB PO ONE; -ASPIRIN 325 MG TAB PO STA; +ATORVASTATIN 80 MG TAB PO SCH; -ATORVASTATIN 80 MG TAB PO STA; +ATROPINE SULFATE 0.1 MG/ML 10ML SYRINGE IV PRN; +CHOLECALCIFEROL 25 MCG (1000 IU) TABLET PO SCH; +CLOPIDOGREL 75 MG TAB PO SCH; +FERROUS SULFATE 325 MG TAB PO SCH; +FLUTICASONE 50MCG/SPRAY NASAL 16GM EA NOSTRIL SCH; +GABAPENTIN 300 MG CAP PO SCH; +HEPARIN SODIUM 1,000 UN/ML (10ML VL) IV ONE; +HEPARIN SODIUM,PORCINE 10,000 UNIT in SODIUM CHLORIDE 0.9% 1,000 ML IRRIGATION PRN; +HEPARIN SODIUM,PORCINE 2,500 UNIT in SODIUM CHLORIDE 0.9% 250 ML IRRIGATION PRN; +IOPAMIDOL-370 100ML BTL INJ ONE; +IPRATROPIUM-ALBUTEROL 3 ML NEB INHALATION PRN; +ISOSORBIDE MONONITRATE ER 30 MG TAB.ER.24H PO SCH; +LIDOCAINE 1% INJ 10MG/ML (20 ML MDV) SQ ONE; +MAG HYDROX/AL HYDROX/SIMETH 30 ML CUP PO PRN; +METOPROLOL TARTRATE 50 MG TAB PO SCH; +MIDAZOLAM 2 MG/2 ML VIAL IV ONE; +NON FORMULARY DRUG (Ascorbic Acid [Vitamin C] 250 MG Tablet) PO SCH; +NON FORMULARY DRUG (Aspirin [Adult Low Dose Aspirin Ec] 81 MG Tablet) PO SCH; +NON FORMULARY DRUG (Zinc [Zinc] 50 MG Tablet) PO SCH; +PANTOPRAZOLE 40 MG TABLET PO SCH; +RIVAROXABAN 15 MG TAB PO SCH; +RX INFO: IV CONTRAST WAS GIVEN 1 EACH MISC MISCELLANE PRN; +SODIUM CHLORIDE 0.9% 1,000 ML IV ONE; -SODIUM CHLORIDE 0.9% 1,000 ML in EMPTY BAG 1 BAG IV ONE; +SODIUM CHLORIDE 0.9% 1,000 ML in EMPTY BAG 1 BAG IV SCH; +SYMBICORT 160-4.5 MCG INHALER INHALATION SCH; +ZOLPIDEM 5 MG TAB PO PRN; +buPROPion SR 150 MG TABLET.ER PO SCH; +fentaNYL (PF) 50 MCG/ML 2 ML AMP IV ONE; +lisinopriL 5 MG TAB PO SCH; +polyethylene glycoL 3350 17 GM POWD.PACK PO PRN
[2021-11-20 09:50] VITALS: RESP 16; TEMP 97.2
--- NOTE | 2021-11-20 12:56 | CC ---
CARDIAC CATHETERIZATION REPORT DATE OF SERVICE: 11/20/2021 PROCEDURE: 1. Left heart catheterization, coronary angiography and selective injection of bypass grafts. 2. Percutaneous transluminal coronary angioplasty of [place] mid circumflex [facility]. Unsuccessful procedure. PERFORMED BY: Dr. Frank Falk. Moderate conscious sedation time was 71 minutes. Patient was administered Versed and fentanyl. CLINICAL INFORMATION: Mr. Jey Kingsley is a 71-year-old gentleman with history of CAD and previous bypass surgery performed in 2004 at [facility]. At that time he had a ZABALA to LAD and two separate vein grafts to the obtuse marginal branch of circumflex and posterolateral branch of circumflex. His RCA was occluded, as was the LAD on subsequent cardiac catheterization. One of the vein grafts, presumably the one to the obtuse marginal, was also totally occluded, but the PLV vein graft was patent. I performed stenting of the body of this graft to the PLV and this was a very large graft. A bare metal stent was used and a 4.5 mm bare metal stent was used in 2015. This was the vein graft to the PLV branch of circumflex. The obtuse marginal graft was totally occluded, seen as a stump. In 2016 I performed stenting of the ostium of his [place] circumflex and mid circumflex with a drug-eluting stent. He has been having symptoms of angina strongly suggestive of progression of CAD. Therefore I brought him for the procedure electively. He also has a sick sinus syndrome and a dual-chamber pacemaker. The ventricular lead had migrated and therefore he was sent to [facility], where the ventricular lead was taken out and two new leads were placed. He had a new Medtronic atrial lead placed. Existing ventricular lead was not disturbed. The migrated lead was taken out. However, he was brought in for cardiac catheterization because of increasing anginal symptoms. His ejection fraction is in the 45% range with wall motion abnormality in the inferior wall. PROCEDURE NOTE: Under local anesthesia and strict aseptic precautions, a 6-Kazakh introducer was placed in the right femoral artery. Using a JL4 diagnostic catheter, I performed selective coronary angiography of the left system. I used a Marielle catheter for the ZABALA and the AR2 catheter for [place] RCA as well as for the vein graft to the PLV branch and also vein graft to the obtuse marginal. LV pressures were checked but LV gram was not performed. Following the procedure, the sheath was sutured and he was sent to the room in a stable condition. I attempted to open up a [facility] of mid circumflex, but this was unsuccessful. I could not cross with a J-tipped Whisper wire and a Corsair microcatheter combination. CARDIAC CATHETERIZATION FINDINGS: The left ventricular end-diastolic pressure was 15 mmHg without any gradient across the aortic valve. CORONARY ANGIOGRAPHY FINDINGS: LEFT MAIN CORONARY ARTERY: Short patent vessel with 30% narrowing and immediately bifurcates into LAD and circumflex. LEFT ANTERIOR DESCENDING CORONARY ARTERY: This is totally occluded and very limited antegrade flow noted. LEFT POSTERIOR CIRCUMFLEX CORONARY ARTERY: This was stented in the ostium and proximal/mid portion. The previously stented areas are widely patent. Beyond the stented segment in the mid portion there is an eccentric 99% stenosis that looks like a chronic total occlusion; and beyond it, the vessel continues and has a substantial amount of myocardium being supplied by it. The mid circumflex 99% is a progression of disease and this is located beyond the previous stented segment. RIGHT CORONARY ARTERY: This is a totally occluded vessel, limited antegrade flow. SAPHENOUS VEIN GRAFT TO THE OBTUSE MARGINAL BRANCH OF CIRCUMFLEX: This is totally occluded, seen as a stump. SAPHENOUS VEIN GRAFT TO THE PLV BRANCH OF CIRCUMFLEX: This graft is widely patent. It is a very large graft. There is a mismatch, but no significant lesion. Previously stented area is patent within the graft and it opacifies the PLV branch and supplies a fair amount of myocardium. LEFT INTERNAL MAMMARY ARTERY GRAFT TO LAD: This graft is widely patent, has no significant disease, and it opacifies the entire LAD which has minor irregularities. FINAL IMPRESSION: This patient has slightly elevated filling pressures. No gradient. Total occlusion of LAD and RCA is noted. RCA is probably nondominant. [place] circumflex at the stented ostium and proximal portion is patent. There is a new lesion in the mid circumflex that appears to be a chronic total occlusion 99%. Vein graft to the obtuse marginal is totally occluded, which is not new. The vein graft to the PLV branch of circumflex is patent with a mismatch but good flow; no significant disease. ZABALA to LAD is patent. LV-gram was not performed. RECOMMENDATIONS: I recommended PCI of mid circumflex, which was a difficult lesion, and proceeded to perform this in the same setting. PCI PROCEDURE DETAILS: I used an XB 3.5 guide catheter of 6-Kazakh caliber and a run-through wire. I could not cross the lesion. I used a combination initially of a SuperCross and Whisper straight wire. I could not cross the lesion. Multiple attempts were made. I then tried for nearly 20 minutes with a Corsair catheter and a J-tipped Whisper wire, but I could not make any progress. The wire kept buckling and not going antegrade. I then decided to not pursue the procedure, explained to the patient that this was unsuccessful, and I will send him to a [facility] intervention center, [facility]. The sheath was sutured and he was sent to the room. ACT was 263. He received about 5500 units of heparin. He was already on Plavix and Xarelto, which will be resumed tomorrow. Patient will be discharged tomorrow if he remains stable. MMODL / IJN: [id number] /
[2021-11-20 18:08] VITALS: BP 145/72; PULSE 52
== END ==
LOC: CATHCVL 09:18
PROVIDERS: ATTEND Internal Medicine Interventional Cardiology
DX: I20.0 Unstable angina (principal); I25.10 Atherosclerotic heart disease of native coronary artery without angina pectoris
CPT/HCPCS: 93459; 92920; C1769 ×6; C1887 ×3; C1894; J2250; J2001; J3010; J1644; Q9967

== ENCOUNTER → 2022-01-08 | Outpatient (CLI) | payer BC ==
--- NOTE | 2022-01-08 21:32 | CT ---
EXAMINATION TYPE: CT chest wo con DATE OF EXAM: 01/08/2022 INDICATION: SOB CT DLP: 602.1 mGy.cm Automated Exposure Control for Dose Reduction was Utilized. TECHNIQUE AND CONTRAST: CT scan of the chest is performed in the supine and prone positions as per high-resolution protocol w ithout IV contrast administration. COMPARISON: CT dated 04/27/2019 FINDINGS: COPD changes with the pulmonary emphysematous changes mainly seen in the upper and midlung zones and more on the right side. Paraseptal emphysema is also noted. Associated bilateral basal subsegmental p ulmonary atelectasis with groundglass opacities and questionable minimal pulmonary fibrotic changes m ore on the right side. This could be related to chronic small airway disease. Patent trachea and main bronchi. Small left pleural effusion. Small round atelectasis is seen in the left lung base posteriorly. Suboptimal assessment for lung nodules. No right-sided pleural effusion. Prominent cardiac size with dilated pulmonary trunk measuring up to 3.3 cm which may suggest pulmonar y hypertension. Scattered coronary and arterial atherosclerotic calcifications. No sizable pericardial effusion. Righ t paratracheal lymph node measuring 11 mm, stable compared to the previous. Other scattered prominent mediastinal lymph nodes. Suspected small hiatal hernia. Sternotomy wire sutures. Left upper chest wa ll pacemaker. IMPRESSION: Pulmonary emphysematous changes and COPD changes with suspected small airway disease as described abo ve. Suspected mild pulmonary fibrotic changes in the lung bases more on the right side as described a anna which may suggest early interstitial lung disease. Combined pulmonary fibrosis and emphysema cannot be excluded. Recommend clinical correlation and furt her workup. Follow-up CT scan in one year can be considered if clinically required. Other incidental findings as described above.
== END | disposition home or self-care (01) ==
LOC: RADCTMAIN 15:24
PROVIDERS: ATTEND Internal Medicine Critical Care Medicine
DX: J43.9 Emphysema, unspecified (principal)
CPT/HCPCS: 71250

== ENCOUNTER → 2022-03-21 | Outpatient (CLI) | payer BC ==
[2022-03-21 14:56] LABS: Partial Thromboplastin Time 26.6 sec (22.0-30.0); Prothrombin Time 10.9 sec (9.0-12.0)
[2022-03-21 15:03] LABS: Appearance,Urine Clear (Clear); Bilirubin,Urine Negative (Negative); Blood,Urine Negative (Negative); Color,Urine Yellow; Glucose,Urine (UA) Negative (Negative); Ketones,Urine Negative (Negative); Leukocyte Esterase,Urine Negative (Negative); Nitrite,Urine Negative (Negative); Protein,Urine Negative (Negative); Specific Gravity,Urine 1.019 (1.001-1.035); Urobilinogen,Urine <2.0 mg/dL (<2.0)
[2022-03-21 19:01] LABS: Basophils # (A) 0.08 X 10*3/uL (0.00-0.10); Basophils % (A) 0.7 %; Eosinophils # (A) 0.03 X 10*3/uL (0.04-0.35); Eosinophils % (A) 0.3 %; HCT 48.3 % (39.6-50.0); HGB 14.5 g/dL (13.0-17.0); Immature Grans, Automated 1.4 %; Lymphocytes # (A) 1.26 X 10*3/uL (0.90-5.00); Lymphocytes % (A) 10.8 %; MCH 28.8 pg (27.0-32.0); MCV 95.8 fL (80.0-97.0); Mean Platelet Volume 10.2 fL (9.5-12.2); Monocytes # (A) 0.78 X 10*3/uL (0.20-1.00); Monocytes % (A) 6.7 %; NRBC Per 100 WBC 0 /100 WBCS (0.0-0.0); Neutrophils # (A) 9.31 X 10*3/uL (1.80-7.70); Neutrophils % (A) 80.1 %; Platelet Count 262 X 10*3/uL (140-440); RBC 5.04 X 10*6/uL (4.40-5.60); RDW 13.9 % (11.5-14.5); WBC 11.62 X 10*3/uL (4.50-10.00)
[2022-03-21 19:12] LABS: African American GFR (CKD) 88.6 (60.0-200.0); Anion Gap 10.4 mmol/L (10.00-18.00); Blood Urea Nitrogen 13.5 mg/dL (9.0-27.0); Carbon Dioxide 24.6 mmol/L (20.0-27.5); Non-African American GFR(CKD) 76.5 (60.0-200.0); Potassium 4.4 mmol/L (3.5-5.5)
== END | disposition home or self-care (01) ==
LOC: LABPAT 13:16
PROVIDERS: ATTEND Internal Medicine
DX: Z01.812 Encounter for preprocedural laboratory examination (principal); J84.10 Pulmonary fibrosis, unspecified
CPT/HCPCS: 80051; 81003; 82565; 82947; 84520; 85025; 85610; 85730; 86850; 86900; 86901; 87086

== ENCOUNTER 2022-03-29 07:18 | Inpatient (IN) | payer BC, OTHER ==
[2022-03-27 08:40] VITALS: BMI 28.8
[~2022-03-29 07:18] MED LIST changes: -ACETAMINOPHEN TAB 325 MG TAB PO PRN; -ALPRAZolam 0.25 MG TAB PO PRN; -ALPRAZolam 0.5 MG TAB PO PRN; -ASPIRIN 325 MG TAB PO ONE; -ATORVASTATIN 80 MG TAB PO SCH; -ATROPINE SULFATE 0.1 MG/ML 10ML SYRINGE IV PRN; -CHOLECALCIFEROL 25 MCG (1000 IU) TABLET PO SCH; -CLOPIDOGREL 75 MG TAB PO SCH; +DEXAMETHASONE SOD PHOSPHATE 4 MG/ML 1 ML VIAL IV ONE; -FERROUS SULFATE 325 MG TAB PO SCH; -FLUTICASONE 50MCG/SPRAY NASAL 16GM EA NOSTRIL SCH; -GABAPENTIN 300 MG CAP PO SCH; -HEPARIN SODIUM 1,000 UN/ML (10ML VL) IV ONE; -HEPARIN SODIUM,PORCINE 10,000 UNIT in SODIUM CHLORIDE 0.9% 1,000 ML IRRIGATION PRN; -HEPARIN SODIUM,PORCINE 2,500 UNIT in SODIUM CHLORIDE 0.9% 250 ML IRRIGATION PRN; +HYDROmorphone 0.5 MG/0.5 ML SYRINGE IVP PRN; -IOPAMIDOL-370 100ML BTL INJ ONE; -IPRATROPIUM-ALBUTEROL 3 ML NEB INHALATION PRN; -ISOSORBIDE MONONITRATE ER 30 MG TAB.ER.24H PO SCH; +LACTATED RINGERS 1,000 ML IV SCH; +LIDOCAINE 1% (10MG/ML) FOR IV START INTRADERMA PRN; -LIDOCAINE 1% INJ 10MG/ML (20 ML MDV) SQ ONE; -MAG HYDROX/AL HYDROX/SIMETH 30 ML CUP PO PRN; -METOPROLOL TARTRATE 50 MG TAB PO SCH; -MIDAZOLAM 2 MG/2 ML VIAL IV ONE; -NITROGLYCERIN SL TABS 0.4 MG TAB SUBLINGUAL PRN; -NON FORMULARY DRUG (Ascorbic Acid [Vitamin C] 250 MG Tablet) PO SCH; -NON FORMULARY DRUG (Aspirin [Adult Low Dose Aspirin Ec] 81 MG Tablet) PO SCH; -NON FORMULARY DRUG (Zinc [Zinc] 50 MG Tablet) PO SCH; +ONDANSETRON 4 MG/2 ML VIAL IVP ONE; -PANTOPRAZOLE 40 MG TABLET PO SCH; -RIVAROXABAN 15 MG TAB PO SCH; -RX INFO: IV CONTRAST WAS GIVEN 1 EACH MISC MISCELLANE PRN; -SODIUM CHLORIDE 0.9% 1,000 ML IV ONE; -SODIUM CHLORIDE 0.9% 1,000 ML in EMPTY BAG 1 BAG IV SCH; -SYMBICORT 160-4.5 MCG INHALER INHALATION SCH; -ZOLPIDEM 5 MG TAB PO PRN; -buPROPion SR 150 MG TABLET.ER PO SCH; -fentaNYL (PF) 50 MCG/ML 2 ML AMP IV ONE; -lisinopriL 5 MG TAB PO SCH; -polyethylene glycoL 3350 17 GM POWD.PACK PO PRN
[2022-03-29 08:07] LABS: Glucose,Whole Blood 86 mg/dL (70-110)
[2022-03-29] MEDS ORDERED: MIDAZOLAM 2 MG/2 ML VIAL IVP ONE (08:11)
[2022-03-29] MEDS ORDERED: PROPOFOL 10 MG/ML 20 ML VIAL IV ONE (09:02)
[2022-03-29] MEDS ORDERED: fentaNYL (PF) 50 MCG/ML 2 ML AMP ONE (09:02)
[2022-03-29] MEDS ORDERED: LIDOCAINE 2% INJ 20 MG/ML (2 ML VIAL) ONE (09:02)
[2022-03-29] MEDS ORDERED: HYDROmorphone (PF) 1 MG/ML ONE (09:02)
[2022-03-29] MEDS ORDERED: NEOSTIGMINE 1 MG/ML 10 ML VIAL ONE (09:02)
[2022-03-29] MEDS ORDERED: GLYCOPYRROLATE 0.2 MG/ML 2 ML VIAL ONE (09:02)
[2022-03-29] MEDS ORDERED: ROCURONIUM 10 MG/ML (5 ML VIAL) IV ONE (09:02)
[2022-03-29] MEDS ORDERED: SUCCINYLCHOLINE CHLORIDE 100 MG/5 ML SYR IV ONE (09:02)
[2022-03-29] MEDS ORDERED: BUPIVACAINE (PF) 0.5% 30 ML VIAL SQ ONE ×2 (09:35)
--- NOTE | 2022-03-29 10:36 | P.OP ---
Date of Procedure: 03/29/22 Preoperative Diagnosis: Bilateral pulmonary fibrosis Postoperative Diagnosis: Same Procedure(s) Performed: 1. Bronchoscopy 2. Video assisted right sided lung biopsy of all 3 lobes Implants: 28F Straight Chest Surgeon: Kurt Gage Estimated Blood Loss (ml): 10 Pathology: other (Right upper, middle, lower lobe for culture and pathology) Condition: stable Disposition: PACU Indications for Procedure: This patient is a 71 year-old male with a previous history of smoking and covid- 19 infection who recently developed bilateral pulmonary fibrosis. Given the quick progression, and unexplained nature of the fibrosis, it was determined that a lung biopsy would be the best course of action. All risks, benefits and alternatives were discussed with the patient and he was in agreement. Operative Findings: Anthracotic right lung with adhesions. No pleural disease or plaques. Description of Procedure: The patient underwent arterial line placement by the anesthesia team in the pre- operative suite. The patient was brought back to the operating room and placed in the supine position. He underwent general endotracheal anesthesia with a double lumen tube. Bronchoscopy was performed to confirm tube placement and the entire tracheo-bronchial tree appeared normal bilaterally without any masses, secretions or abnormalities. The patient was then placed in the left lateral decubitus position and his right chest was prepped and draped in the usual sterile fashion. A time-out was performed and antibiotics were given. We made a 2cm incision below the scapula in the posterior axillary line. We gained entry in to the right chest under direct vision and the right lung was isolated. The lung appeared athracotic with adhesions circumferentially. We then injected 0.5% marcaine in the 8th intercostal space mid axillary line. Another 2cm incision was made here. The adhesions along the medial border of the right upper and lower lobes were taken down using the harmonic. A small piece of each lobe was stapled off using an endo MARTÍNEZ purple load on the stapler. The chest cavity was irrigated and a 28F chest tube was inserted via the inferior incision. All incisions were closed in layers of vicryl and glue after the right lung was inflated. Two lung ventilation was resumed. The patient was extubated in the operating room and transferred to recovery in stable condition without air leak.
[2022-03-29] MEDS ORDERED: HYDROmorphone 0.5 MG/0.5 ML SYRINGE IVP ONE (11:14)
[2022-03-29] MEDS ORDERED: DEXTROSE 5%-0.45% NACL 1,000 ML IV SCH (11:15)
[2022-03-29] MEDS ORDERED: ACETAMINOPHEN TAB 325 MG TAB PO PRN (11:15)
[2022-03-29] MEDS ORDERED: NITROGLYCERIN SL TABS 0.4 MG TAB SUBLINGUAL PRN (11:15)
[2022-03-29] MEDS ORDERED: polyethylene glycoL 3350 17 GM POWD.PACK PO PRN (11:15)
[2022-03-29] MEDS ORDERED: ONDANSETRON 4 MG/2 ML VIAL IVP PRN (11:15)
--- NOTE | 2022-03-29 11:21 | XR ---
EXAMINATION TYPE: XR chest 1V portable DATE OF EXAM: 03/29/2022 CLINICAL HISTORY: Postoperative VATS. TECHNIQUE: Single AP portable upright view of the chest is obtained. COMPARISON: Chest x-ray from November 16, 2021. CT chest January 08, 2022 FINDINGS: New right apical chest tube without pneumothorax. Background low lung volumes with chronic emphysematous and pulmonary fibrotic changes is redemonstrated with diminished inspiration and incre ased interstitial markings along with slightly more prominent small left pleural effusion. Overlying sternal wires redemonstrated. Epicardial pacemaker wire redemonstrated. Persistent cardiomegaly with dual lead pacemaker. Osseous structures are demineralized. IMPRESSION: As above. No pneumothorax with right-sided chest tube. Suspect mild/moderate interstitial edema and small left pleural effusion on background chronic emphysematous and parenchymal fibrotic c hanges.
[2022-03-29] MEDS ORDERED: hydrALAZINE HCL 20 MG/ML 1 ML VIAL IVP PRN (11:49)
[2022-03-29] MEDS ORDERED: traMADol 50 MG TAB PO SCH (12:00)
[2022-03-29] MEDS ORDERED: LACTATED RINGERS 1,000 ML IV ONE (12:50)
--- NOTE | 2022-03-29 15:27 | P.CNPUL ---
History of Present Illness Consult date: 03/29/22 Requesting physician: Kurt Gage Reason for consult: other (Pulmonary fibrosis) Chief complaint: Shortness of breath, cough, status post thoracoscopic lung biopsy History of present illness: This is a 71-year-old white male with history of multiple medical problems including previous history of coronary artery disease and previous CABG in 2004, benign essential hypertension, GERD, and paroxysmal atrial fibrillation. Patient came down with COVID-19 infection back in June of 2021, and since then the patient has been noticing significant shortness of breath with any exertion. Patient was seen by Dr. Mathews on consultation, he had extensive workup on outpatient basis, CT of the chest date showed pulmonary fibrotic changes in the lung bases, suggestive of interstitial lung disease, hence the patient was referred to see the thoracic surgeon for VATS lung biopsy, this was done today and postoperatively this consult was initiated. Patient is doing fairly well except for expected postoperative pain. He is on 2 L nasal cannula, and O2 saturation is 99% Review of Systems Constitutional: Negative HEENT: Negative Cardiac: Negative GI: Negative Pulmonary: As noted in HPI Genitourinary: Negative Muscular skeletal: Negative Hematologic: Negative Psychiatric: Negative Skin: Negative Neurologic: Negative Past Medical History Past Medical History: Atrial Fibrillation, Coronary Artery Disease (CAD), COPD, Hyperlipidemia, Osteoarthritis (OA), Pneumonia, Respiratory Disorder Additional Past Medical History / Comment(s): Hx Covid 05/12 with antidody treatment. Bradycardia with pacemaker, lumbar disc disorder, small hiatal hernia, ventral hernia, hx anemia with hemorrhoids with bleeding. bruises easily-has bruises on arms, uses oxygen at night and an oxygen "puffer" prn during the day, lung fibrosis History of Any Multi-Drug Resistant Organisms: None Reported Past Surgical History: Coronary Bypass/CABG, Heart Catheterization, Heart Catheterization With Stent, Hernia Repair, Orthopedic Surgery, Pacemaker Additional Past Surgical History / Comment(s): Vasectomy, 3 vessel CABG 2004, BILATERAL CATARACT, BONE INFUSION MIDDLE LEFT FINGER CRUSHING INJURY, right knee arthroscopy, [employer] pacemaker placed 11/04/16, 6 cardiac stents (last two 11/2021 at [facility]), ventricular lead replacement 08/21/2018, hematoma evacuation from pacemaker site 08/23/2018. 2019-pacemaker wire removed at [facility], Past Anesthesia/Blood Transfusion Reactions: No Reported Reaction Date of Last Stent Placement:: 11/2021 Type of Cardiac Device: Permanent Pacemaker Device Placement Date:: 11/04/16 [employer] Past Psychological History: No Psychological Hx Reported Additional Psychological History / Comment(s): . Smoking Status: Former smoker Past Alcohol Use History: Rare Additional Past Alcohol Use History / Comment(s): Quit smoking 716, smoked since age 17. Past Drug Use History: None Reported - Past Family History Father Family Medical History: Cancer Additional Family Medical History / Comment(s): . Mother Family Medical History: Coronary Artery Disease (CAD) Additional Family Medical History / Comment(s): HEART PROBLEMS. Sister(s) Family Medical History: Cancer Additional Family Medical History / Comment(s): Lymph nodes. Brother(s) Family Medical History: Cancer Medications and Allergies Home Medications Medication Instructions Recorded Confirmed Type Gabapentin [Neurontin] 300 mg PO BID 10/08/14 03/29/22 History Ferrous Sulfate [Iron (65 MG 325 mg PO DAILY 09/03/16 03/29/22 History Elemental)] Clopidogrel [Plavix] 75 mg PO DAILY #90 tab 09/07/16 03/29/22 Rx polyethylene glycoL 3350 [Miralax] 17 gm PO HS PRN 10/30/16 03/29/22 History Acetaminophen Tab [Tylenol] 650 mg PO Q6H PRN 07/19/18 03/29/22 History Albuterol Inhaler [Ventolin Hfa 1 - 2 puff INHALATION RT-BID PRN 07/19/18 03/29/22 History Inhaler] Budesonide/Formoterol Fumarate 2 puff INHALATION QAM 07/19/18 03/29/22 History [Symbicort 160-4.5 Mcg Inhaler] Ipratropium-Albuterol Nebulize 3 ml INHALATION QID PRN 07/19/18 03/29/22 History [Duoneb 0.5 mg-3 mg/3 ml Soln] Rivaroxaban [Xarelto] 15 mg PO W/SUPPER 07/19/18 03/29/22 History buPROPion HCL [Wellbutrin SR] 150 mg PO BID 07/19/18 03/29/22 History predniSONE 5 mg PO DAILY 07/19/18 03/29/22 History Pantoprazole Sodium [Protonix] 40 mg PO DAILY 08/19/18 03/29/22 History lisinopriL [Zestril] 2.5 mg PO HS 08/19/18 03/29/22 History Isosorbide Mononitrate ER [Imdur] 30 mg PO 1200 10/19/18 03/29/22 History Aspirin [Adult Low Dose Aspirin EC] 324 mg PO DAILY 11/19/21 03/29/22 History Atorvastatin [Lipitor] 40 mg PO HS 11/19/21 03/29/22 History Fluticasone Nasal [place] [Flonase 2 spray EA NOSTRIL DAILY 11/19/21 03/29/22 History Nasal [place]] Metoprolol Tartrate [Lopressor] 50 mg PO BID 11/19/21 03/29/22 History Nitroglycerin Sl Tabs [Nitrostat] 0.4 mg SUBLINGUAL Q5M PRN 11/19/21 03/29/22 History Zinc 50 mg PO DAILY 11/19/21 03/29/22 History Loratadine-Pseudoeph 5-120 mg 1 tab PO Q12HR PRN 03/27/22 03/29/22 History [Claritin-D 12 Hour] Allergies Allergy/AdvReac Type Severity Reaction Status Date / Time ibuprofen [From Motrin IB] AdvReac Unknown Verified 03/27/22 08:17 Physical Exam Vitals: Vital Signs Temp Pulse Resp BP Pulse Ox 03/29/22 14:00 55 L 16 03/29/22 13:28 97.5 F L 55 L 16 136/78 99 03/29/22 12:39 64 20 155/88 96 03/29/22 12:06 52 L 18 145/79 97 03/29/22 11:51 50 L 18 149/73 97 03/29/22 11:36 50 L 18 162/80 97 03/29/22 11:21 53 L 18 167/86 99 03/29/22 11:06 54 L 18 166/79 98 03/29/22 10:51 62 16 170/77 100 03/29/22 10:43 97.0 F L 61 18 168/83 100 03/29/22 10:36 97.0 F L 61 18 183/88 100 03/29/22 08:26 52 L 20 141/66 98 03/29/22 07:47 96.6 F L 55 L 20 181/88 99 Intake and Output 03/29/22 03/29/22 03/29/22 06:59 14:59 22:59 Intake Total 1050 Output Total 20 Balance 1030 Intake: IV 1050 Output: Estimated Blood Loss 20 Other: Voiding Method Toilet Weight 75 kg Physical Exam: Revealed a 71-year-old white male in no distress Head: Atraumatic, normocephalic. HEENT:[Neck is supple.] [No neck masses.] [No thyromegaly.] [No JVD.] Chest: [Symmetrical chest expansion, minimal fine crackles at the bases right- sided chest tube is noted Cardiac Exam: [Normal S1 and S2, no S3 gallop, no murmur.] Abdomen: [Soft, nontender, no megaly, no rebound, no guarding, normal bowel sounds.] Extremities: [No clubbing, no edema, no cyanosis.] Neurological Exam: [No focal neurologic deficit.] Alert and oriented 3. Psychiatric: Normal mood, affect and normal mental status examination Skin: No rashes. Results - Diagnostic Findings Chest x-ray: image reviewed (No evidence of postoperative right-sided pneumothorax, right-sided chest tube is noted, mild to moderate interstitial lung disease is noted and small left pleural effusion is also noted.) Assessment and Plan Assessment: Impression: Interstitial lung disease, most likely induced by history of Coumadin 19 infection/pneumonia however the possibility of early IPF or nonspecific interstitial pneumonitis has to be considered. Status post VATS lung biopsy, awaiting report in the next few days. Mild/Gold stage II COPD Chronic atrial fibrillation, on Xarelto Degenerative joint disease History of hiatal hernia History of pacemaker implantation History of cardiac catheterization and stent placement, history of coronary artery disease Recommendation: Continue present meds as listed Resume home meds. Possible removal of chest tube in the next 24 hours Possible discharge in the next 24 hours Follow-up with Dr. Farias post discharge. We will continue to follow while inpatient. Time with Patient: Greater than 30
[2022-03-29] MEDS: HYDROmorphone 0.5 MG/0.5 ML SYRINGE IVP PRN (16:03)
[2022-03-29 16:10] LABS: Glucose,Whole Blood 111 mg/dL (70-110)
[2022-03-29] MEDS: KETOROLAC 15 MG/ML 1 ML VIAL IVP PRN (16:33)
--- NOTE | 2022-03-29 16:53 | XR ---
EXAMINATION TYPE: XR chest 1V DATE OF EXAM: 03/29/2022 COMPARISON: 03/29/2022 HISTORY: Chest tube placement TECHNIQUE: FINDINGS: There is coarse interstitial infiltrate and atelectasis in the mid and lower lung aquino. T here is right-sided chest tube with tip at the right lung apex. There is small right-sided pneumothor ax less than 5%. No heart failure. There are sternal wires. There is left axillary pacemaker. IMPRESSION: Pulmonary fibrotic changes and mild atelectasis. No change compared to exam this morning. Very small right-sided pneumothorax without change.
[2022-03-29] MEDS: HEPARIN SODIUM,PORCINE/PF 5,000 UNIT/0.5 ML SYRINGE SQ SCH ×2 (16:55→23:52)
[2022-03-29] MEDS: traMADol 50 MG TAB PO SCH ×2 (17:30→23:54)
[2022-03-29] MEDS: ACETAMINOPHEN IV (For NPO) 1,000 MG in EMPTY BAG 1 BAG IVPB SCH ×2 (18:25→23:52)
[2022-03-29] MEDS: SENNOSIDES-DOCUSATE SODIUM 1 EACH TAB PO SCH (21:26)
[2022-03-29] MEDS: METOPROLOL TARTRATE 50 MG TAB PO SCH (21:26)
[2022-03-29] MEDS: GABAPENTIN 300 MG CAP PO SCH (21:26)
[2022-03-29] MEDS: ATORVASTATIN 40 MG TAB PO SCH (21:26)
[2022-03-29] MEDS: buPROPion SR 150 MG TABLET.ER PO SCH (22:10)
[2022-03-30] MEDS: HYDROmorphone 0.5 MG/0.5 ML SYRINGE IVP PRN (02:48)
[2022-03-30] MEDS: ACETAMINOPHEN IV (For NPO) 1,000 MG in EMPTY BAG 1 BAG IVPB SCH (06:24)
[2022-03-30] MEDS: traMADol 50 MG TAB PO SCH (06:25)
--- NOTE | 2022-03-30 06:47 | XR ---
EXAMINATION TYPE: XR chest 1V DATE OF EXAM: 03/30/2022 CLINICAL HISTORY: Postlung biopsy. TECHNIQUE: Single AP portable upright view of the chest is obtained. COMPARISON: Chest x-ray from one day earlier and older studies. FINDINGS: Stable right-sided chest tube. Persistent low lung volumes and chronic parenchymal changes with worsening right midlung consolidation and bibasilar opacities. Tiny right lateral pneumothorax remains present. Adjacent subcutaneous emphysema again seen. Cardiac silhouette size stable and upper limits of normal with dual lead pacemaker. Overlying external wires redemonstrated. Osseous structur es are intact. IMPRESSION: Stable tiny right lateral pneumothorax with right-sided chest tube. Chronic changes and l ow lung volumes with worsening lateral right midlung consolidation and worsening bibasilar acute infi ltrates and/or atelectasis.
[2022-03-30 07:45] LABS: Basophils % (A) 0 %; Eosinophils # (A) 0.1 k/uL (0-0.7); Eosinophils % (A) 1 %; HCT 43.3 % (39.0-53.0); HGB 13.8 gm/dL (13.0-17.5); Hypochromasia Slight; Lymphocytes # (A) 1.5 k/uL (1.0-4.8); Lymphocytes % (A) 12 %; MCH 30.3 pg (25.0-35.0); MCV 94.9 fL (80.0-100.0); Mean Platelet Volume 7.6; Monocytes % (A) 8 %; Neutrophils # (A) 9.9 k/uL (1.3-7.7); Neutrophils % (A) 79 %; Platelet Count 257 k/uL (150-450); RBC 4.56 m/uL (4.30-5.90); RDW 13.8 % (11.5-15.5); WBC 12.6 k/uL (3.8-10.6)
[2022-03-30] MEDS: SYMBICORT 160-4.5 MCG INHALER INHALATION SCH (07:46)
[2022-03-30] MEDS: IPRATROPIUM-ALBUTEROL 3 ML NEB INHALATION PRN ×2 (07:46→20:02)
--- NOTE | 2022-03-30 08:54 | P.PN ---
Subjective Progress Note Date: 03/30/22 Principal diagnosis: Bilateral pulmonary fibrosis. Previous medical history of mild COPD with previous tobacco dependence and home oxygen dependence, covid infection April 2021, coronary artery disease with myocardial infarction status post 3 vessel CABG in 2004 with subsequent PCI in 2016, hypertension, hyperlipidemia, paroxysmal atrial fibrillation on Xarelto for anticoagulation, sick sinus syndrome status post pacemaker placement ([employer] in 2017. POD #1 bronchoscopy, video-assisted right sided lung biopsy of all 3 lobes The patient was seen and examined spring sitting up in a recliner in the cardiac stepdown unit. He continues to complain of significant pain at his chest tube site. States his breathing is okay but just hurts to take a deep breath. R emains on 2 L nasal cannula with oxygen saturation in the mid 90s, only achieving 500 mL on his incentive spirometry. Right pleural chest tube remains in place, no air leak was present yesterday so chest tube was placed to waterseal. Continues to have a good amount of bloody drainage, chest x-ray this morning demonstrates small lateral pneumothorax. No air leak present this morning, good tidaling in the waterseal chamber Objective - Vital Signs Vital signs: Vital Signs Temp 98.9 F 03/30/22 04:00 Pulse 60 03/30/22 07:58 Resp 19 03/30/22 04:00 BP 110/62 03/30/22 04:00 Pulse Ox 95 03/30/22 04:00 FiO2 Intake & Output 03/29/22 03/30/22 03/30/22 18:59 06:59 18:59 Intake Total 1450 720 Output Total 130 300 Balance 1320 420 Weight 75 kg Intake: IV 1050 Intake, IV Titration 400 Amount ACETAMINOPHEN IV (For NPO 100 ) 1,000 mg In Empty Bag 1 bag @ 400 mls/hr IVPB Q6HR [facility] Rx#:[id number] Dextrose 5%-0.45% NaCl 1, 250 000 ml @ 50 mls/hr IV . Q20H [facility] Rx#:[id number] ceFAZolin 2 gm In Sodium 50 Chloride 0.9% 50 ml @ 100 mls/hr IVPB Q8H [facility] Rx#: [id number] Oral 720 Output: Chest Tube Drainage 110 Right Lateral Chest 110 Drainage 300 Right Chest 300 Estimated Blood Loss 20 Other: Voiding Method Toilet Toilet # Voids 1 - Exam CONSTITUTIONAL: Appears uncomfortable, cooperative, no acute distress but does appear to have increased pain RESPIRATORY: Lungs sounds diminished bilaterally. Respirations even, nonlabored but shallow due to pain. Currently on 2 L nasal cannula with oxygen saturation 95%. Only able to achieve 500 mL on incentive spirometry. Weak cough. CARDIOVASCULAR: S1, S2 present. Regular rate and rhythm, sinus rhythm on telemetry. Palpable peripheral pulses bilaterally. No edema present. No calf pain or tenderness noted. SCDs present. GASTROINTESTINAL: Abdomen soft, nontender, nondistended. Active bowel sounds present 4 quadrants. Tolerating minimal diet. GENITOURINARY: Continues to void INTEGUMENTARY: Skin is warm and dry except some drainage around his chest tube site which has been reinforced with current dressing. Thoracic incision well approximated NEUROLOGIC: Cranial nerves II through XII intact MUSKULOSKELETAL: Able to move all extremities, strength equal bilaterally, gait normal PSYCHIATRIC: Alert and oriented to person place and time, appropriate affect, intact judgment and insight INVASIVE LINES AND TUBES: Right pleural chest tubes present to waterseal, no air leak present, 300 mL serosanguineous drainage overnight, 600 mL since surgery, good tidaling present. - Allied health notes Allied health notes reviewed: nursing - Labs CBC & Chem 7: 03/30/22 07:24 Labs: Abnormal Lab Results - Last 24 Hours (Table) 03/29/22 03/30/22 Range/Units 16:09 07:24 WBC 12.6 H (3.8-10.6) k/uL Neutrophils # 9.9 H (1.3-7.7) k/uL POC Glucose (mg/dL) 111 H (70-110) mg/dL Microbiology - Last 24 Hours (Table) 03/29/22 10:23 Anaerobic Culture - Preliminary Lung - Right 03/29/22 10:24 Tissue Culture - Preliminary Lung - Right Upper Lobe 03/29/22 10:25 Acid Fast Bacilli Culture - Preliminary Lung - Right Lower Lobe 03/29/22 10:23 Acid Fast Bacilli Culture - Preliminary Lung - Right 03/29/22 10:24 Anaerobic Culture - Preliminary Lung - Right Upper Lobe 03/29/22 10:25 Tissue Culture - Preliminary Lung - Right Lower Lobe 03/29/22 10:25 Anaerobic Culture - Preliminary Lung - Right Lower Lobe 03/29/22 10:23 Fungal Culture - Preliminary Lung - Right 03/29/22 10:24 Fungal Culture - Preliminary Lung - Right Upper Lobe 03/29/22 10:25 Fungal Culture - Preliminary Lung - Right Lower Lobe 03/29/22 10:23 Tissue Culture - Preliminary Lung - Right 03/29/22 10:24 Acid Fast Bacilli Culture - Preliminary Lung - Right Upper Lobe - Imaging and Cardiology Chest x-ray: report reviewed, image reviewed Assessment and Plan Assessment: 1. Bilateral pulmonary fibrosis, status post bronchoscopy, video-assisted right sided lung biopsy of all 3 lobes, pathology pending 2. Pain, shortness of breath secondary to chest tube 3. History of mild COPD with previous tobacco dependence and home oxygen dependence 4. Covid infection April 2021 5. Coronary artery disease with myocardial infarction status post 3 vessel CABG in 2004 with subsequent PCI in 2017 as well as [facility] MANAGER stent placed at [facility] 12/17/2021 6. History of hypertension 7. History of hyperlipidemia 8. History of paroxysmal atrial fibrillation on Xarelto for anticoagulation, currently sinus rhythm 9. History of sick sinus syndrome status post pacemaker placement ([employer] in 2016 10. Tiny pneumothorax on follow-up x-ray, expected Plan: 1. Will leave chest tube to waterseal for another 24 hours, monitor for output, resolution of pneumothorax 2. Will adjust/increase pain medication to try and obtain better pain control 3. Encourage incentive spirometry use 10 times every hour while awake. Bronchodilators per pulmonology 4. Will repeat chest x-ray in the morning 5. Continue other home medications as scheduled. Will restart Plavix today due to recent stent placement, will restart Xarelto tomorrow 6. Increase activity as tolerated, ambulate as tolerated 7. GI/DVT prophylaxis 8. More recommendations to follow
[2022-03-30] MEDS: ASPIRIN 325 MG TAB PO SCH (09:20)
[2022-03-30] MEDS: HEPARIN SODIUM,PORCINE/PF 5,000 UNIT/0.5 ML SYRINGE SQ SCH ×3 (09:20→23:29)
[2022-03-30] MEDS: CLOPIDOGREL 75 MG TAB PO SCH (09:20)
[2022-03-30] MEDS: buPROPion SR 150 MG TABLET.ER PO SCH ×2 (09:20→20:15)
[2022-03-30] MEDS: FERROUS SULFATE 325 MG TAB PO SCH (09:21)
[2022-03-30] MEDS: GABAPENTIN 300 MG CAP PO SCH ×2 (09:21→20:15)
[2022-03-30] MEDS: ZINC SULFATE 220 MG CAP PO SCH (09:22)
[2022-03-30] MEDS: predniSONE 5 MG TAB PO SCH (09:22)
[2022-03-30] MEDS: SENNOSIDES-DOCUSATE SODIUM 1 EACH TAB PO SCH ×2 (09:22→20:15)
[2022-03-30] MEDS: METOPROLOL TARTRATE 50 MG TAB PO SCH ×2 (09:22→20:15)
[2022-03-30] MEDS: PANTOPRAZOLE 40 MG TABLET PO SCH (09:23)
[2022-03-30] MEDS: HYDROmorphone 1 MG/ML 1 ML SYRINGE IVP PRN ×3 (11:20→23:29)
--- NOTE | 2022-03-30 11:30 | P.PN ---
Subjective Progress Note Date: 03/30/22 Principal diagnosis: Interstitial lung disease/pulmonary fibrosis, status post VATS lung biopsy postoperative day #1 This is a 71-year-old white male with history of multiple medical problems including previous history of coronary artery disease and previous CABG in 2004, benign essential hypertension, GERD, and paroxysmal atrial fibrillation. Patient came down with COVID-19 infection back in June of 2021, and since then the patient has been noticing significant shortness of breath with any exertion. Patient was seen by Dr. Mathews on consultation, he had extensive workup on outpatient basis, CT of the chest date showed pulmonary fibrotic changes in the lung bases, suggestive of interstitial lung disease, hence the patient was referred to see the thoracic surgeon for VATS lung biopsy, this was done today and postoperatively this consult was initiated. Patient is doing fairly well except for expected postoperative pain. He is on 2 L nasal cannula, and O2 saturation is 99% reevaluated today on 03/30/2022, Reevaluated today on 03/30/2022, patient is postoperative day #1 underwent bronchoscopy and VD-assisted the right-sided lung biopsy. Patient continues to have right-sided chest pain at the site of the tube insertion. Painful when he takes a deep breath, he is on 2 L nasal cannula and O2 saturation is in the 90s. He is doing poorly with incentive spirometry cannot take a deep breath. His right-sided chest tube remains in place, no megaly, however it was placed to waterseal and it will be kept there for another day. Small tiny right sided lateral pneumothorax is noted otherwise no major changes in the chest x-ray findings and in his interstitial lung disease. CBC today is normal hemoglobin is 13.8 Objective - Vital Signs Vital signs: Vital Signs Temp 97.9 F 03/30/22 08:00 Pulse 63 03/30/22 08:00 Resp 21 03/30/22 08:00 BP 122/68 03/30/22 08:00 Pulse Ox 94 L 03/30/22 08:00 FiO2 Intake & Output 03/29/22 03/30/22 03/30/22 18:59 06:59 18:59 Intake Total 1450 720 Output Total 130 300 Balance 1320 420 Weight 75 kg Intake: IV 1050 Intake, IV Titration 400 Amount ACETAMINOPHEN IV (For NPO 100 ) 1,000 mg In Empty Bag 1 bag @ 400 mls/hr IVPB Q6HR [facility] Rx#:[id number] Dextrose 5%-0.45% NaCl 1, 250 000 ml @ 50 mls/hr IV . Q20H [facility] Rx#:[id number] ceFAZolin 2 gm In Sodium 50 Chloride 0.9% 50 ml @ 100 mls/hr IVPB Q8H [facility] Rx#: [id number] Oral 720 Output: Chest Tube Drainage 110 Right Lateral Chest 110 Drainage 300 Right Chest 300 Estimated Blood Loss 20 Other: Voiding Method Toilet Toilet Toilet # Voids 1 - Exam Physical Exam: Revealed a 71-year-old white male in no distress, on 2 L nasal cannula Head: Atraumatic, normocephalic. HEENT:[Neck is supple.] [No neck masses.] [No thyromegaly.] [No JVD.] Chest: [Symmetrical chest expansion, minimal fine crackles at the bases right- sided chest tube is noted Cardiac Exam: [Normal S1 and S2, no S3 gallop, no murmur.] Abdomen: [Soft, nontender, no megaly, no rebound, no guarding, normal bowel sounds.] Extremities: [No clubbing, no edema, no cyanosis.] Neurological Exam: [No focal neurologic deficit.] Alert and oriented 3. Psychiatric: Normal mood, affect and normal mental status examination Skin: No rashes. - Labs CBC & Chem 7: 03/30/22 07:24 Labs: Abnormal Lab Results - Last 24 Hours (Table) 03/29/22 03/30/22 Range/Units 16:09 07:24 WBC 12.6 H (3.8-10.6) k/uL Neutrophils # 9.9 H (1.3-7.7) k/uL POC Glucose (mg/dL) 111 H (70-110) mg/dL Microbiology - Last 24 Hours (Table) 03/29/22 10:23 Anaerobic Culture - Preliminary Lung - Right 03/29/22 10:24 Tissue Culture - Preliminary Lung - Right Upper Lobe 03/29/22 10:25 Acid Fast Bacilli Culture - Preliminary Lung - Right Lower Lobe 03/29/22 10:23 Acid Fast Bacilli Culture - Preliminary Lung - Right 03/29/22 10:24 Anaerobic Culture - Preliminary Lung - Right Upper Lobe 03/29/22 10:25 Tissue Culture - Preliminary Lung - Right Lower Lobe 03/29/22 10:25 Anaerobic Culture - Preliminary Lung - Right Lower Lobe 03/29/22 10:23 Fungal Culture - Preliminary Lung - Right 03/29/22 10:24 Fungal Culture - Preliminary Lung - Right Upper Lobe 03/29/22 10:25 Fungal Culture - Preliminary Lung - Right Lower Lobe 03/29/22 10:23 Tissue Culture - Preliminary Lung - Right 03/29/22 10:24 Acid Fast Bacilli Culture - Preliminary Lung - Right Upper Lobe Assessment and Plan Assessment: Impression: Interstitial lung disease, most likely induced by history of covid19 infection/pneumonia however the possibility of early IPF or nonspecific interstitial pneumonitis has to be considered. Status post VATS lung biopsy, awaiting report in the next few days. Mild/Gold stage II COPD Chronic atrial fibrillation, on Xarelto Degenerative joint disease History of hiatal hernia History of pacemaker implantation History of cardiac catheterization and stent placement, history of coronary artery disease Postoperative, small tiny pneumothorax, lateral, expected Recommendation: Continue present meds as listed Continue home meds Chest tube to waterseal for the next 24 hours Follow-up with Dr. Farias post discharge. We will continue to follow while inpatient. Time with Patient: Less than 30
[2022-03-30] MEDS: FLUTICASONE 50MCG/SPRAY NASAL 16GM EA NOSTRIL SCH (12:13)
[2022-03-30] MEDS: ISOSORBIDE MONONITRATE ER 30 MG TAB.ER.24H PO SCH (12:13)
[2022-03-30 13:29] LABS: African American GFR (CKD) >90 (>60 ml/min/1.73 sqM); Anion Gap 5 mmol/L; Blood Urea Nitrogen 19 mg/dL (9-20); Calcium 8.4 mg/dL (8.4-10.2); Carbon Dioxide 27 mmol/L (22-30); Chloride 99 mmol/L (98-107); Glucose 95 mg/dL (74-99); Non-African American GFR(CKD) 89 (>60 ml/min/1.73 sqM); Potassium 4.1 mmol/L (3.5-5.1); Sodium 131 mmol/L (137-145)
[2022-03-30] MEDS: KETOROLAC 15 MG/ML 1 ML VIAL IVP PRN (14:20)
[2022-03-30] MEDS: HYDROcodone/APAP 10-325MG 1 EACH TAB PO PRN ×2 (16:27→20:15)
[2022-03-30] MEDS ORDERED: RIVAROXABAN 15 MG TAB PO SCH (17:30)
[2022-03-30] MEDS: ATORVASTATIN 40 MG TAB PO SCH (20:15)
[2022-03-30 20:33] LABS: Glucose,Whole Blood 112 mg/dL (70-110)
[2022-03-31] MEDS: HYDROcodone/APAP 10-325MG 1 EACH TAB PO PRN ×3 (04:35→12:04)
--- NOTE | 2022-03-31 06:39 | XR ---
EXAMINATION TYPE: XR chest 2V DATE OF EXAM: 03/31/2022 COMPARISON: Chest x-ray one day earlier and older studies HISTORY: Post lung biopsy. TECHNIQUE: Frontal and lateral views of the chest are obtained. FINDINGS: Stable right-sided chest tube. Persistent low lung volumes and chronic parenchymal changes with persistent right midlung consolidation and bibasilar opacities. Tiny residual right lateral pne umothorax remains present. Adjacent subcutaneous emphysema shows continued improvement. Cardiac silho uette size stable and upper limits of normal with dual lead pacemaker. Overlying sternal wires redemo nstrated. Osseous structures are intact. IMPRESSION: Stable tiny right lateral pneumothorax with right-sided chest tube in place. Chronic patel ges and low lung volumes with persistent lateral right midlung consolidation and persistent bibasilar acute infiltrates and/or atelectasis. Improving subcutaneous emphysema otherwise no significant patel ge from one day earlier.
[2022-03-31] MEDS ORDERED: METOCLOPRAMIDE 5 MG/ML 2 ML VIAL IVP STA (07:32)
--- NOTE | 2022-03-31 07:51 | P.PN ---
Subjective Progress Note Date: 03/31/22 Principal diagnosis: Bilateral pulmonary fibrosis. Previous medical history of mild COPD with previous tobacco dependence and home oxygen dependence, covid infection April 2021, coronary artery disease with myocardial infarction status post 3 vessel CABG in 2004 with subsequent PCI in 2016, hypertension, hyperlipidemia, paroxysmal atrial fibrillation on Xarelto for anticoagulation, sick sinus syndrome status post pacemaker placement ([employer] in 2017. POD #2 bronchoscopy, video-assisted right sided lung biopsy of all 3 lobes The patient was seen and examined spring sitting up in a recliner in the cardiac stepdown unit eating breakfast. States pain is better controlled today with increasing pain medication, complains of less shortness of breath. Remains on 2 L nasal cannula with oxygen saturation in the mid 90s, achieving 0848-5838 mL on his incentive spirometry. Right pleural chest tube remains in place to waterseal, no air leak present. Chest x-ray reviewed, stable from yesterday. No other concerns. Objective - Vital Signs Vital signs: Vital Signs Temp 98.1 F 03/31/22 04:00 Pulse 75 03/31/22 04:00 Resp 19 03/31/22 04:00 BP 124/77 03/31/22 04:00 Pulse Ox 95 03/31/22 04:00 FiO2 Intake & Output 03/30/22 03/31/22 03/31/22 18:59 06:59 18:59 Intake Total 898 360 Output Total 300 Balance 898 60 Weight 74.8 kg Intake: Oral 898 360 Output: Drainage 300 Right Chest 300 Other: Voiding Method Toilet Toilet # Voids 3 - Exam CONSTITUTIONAL: Appears comfortable, cooperative, no acute distress RESPIRATORY: Lungs sounds coarse bilaterally. Respirations even, nonlabored. Currently on 2 L nasal cannula with oxygen saturation 95%. Able to achieve 0013-6954 mL on incentive spirometry. Strong nonproductive cough. CARDIOVASCULAR: S1, S2 present. Regular rate and rhythm, sinus rhythm on telemetry. Palpable peripheral pulses bilaterally. No edema present. No calf pain or tenderness noted. SCDs present. GASTROINTESTINAL: Abdomen soft, nontender, nondistended. Active bowel sounds present 4 quadrants. Tolerating diet. GENITOURINARY: Continues to void INTEGUMENTARY: Skin is warm and dry except some drainage around his chest tube site which has been reinforced with current dressing. Thoracic incision well approximated NEUROLOGIC: Cranial nerves II through XII intact MUSKULOSKELETAL: Able to move all extremities, strength equal bilaterally, gait normal PSYCHIATRIC: Alert and oriented to person place and time, appropriate affect, intact judgment and insight INVASIVE LINES AND TUBES: Right pleural chest tubes present to waterseal, no air leak present, 300 mL serosanguineous drainage in the last 24 hours - Labs CBC & Chem 7: 03/30/22 07:24 03/30/22 07:04 Labs: Abnormal Lab Results - Last 24 Hours (Table) 03/30/22 03/30/22 03/30/22 Range/Units 07:04 07:24 20:32 WBC 12.6 H (3.8-10.6) k/uL Neutrophils # 9.9 H (1.3-7.7) k/uL Sodium 131 L (137-145) mmol/L POC Glucose (mg/dL) 112 H (70-110) mg/dL Microbiology - Last 24 Hours (Table) 03/29/22 10:25 Acid Fast Bacilli Smear - Final Lung - Right Lower Lobe Acid Fast Bacilli Culture - Preliminary 03/29/22 10:23 Acid Fast Bacilli Smear - Final Lung - Right Acid Fast Bacilli Culture - Preliminary 03/29/22 10:24 Acid Fast Bacilli Smear - Final Lung - Right Upper Lobe Acid Fast Bacilli Culture - Preliminary 03/29/22 10:25 Gram Stain - Preliminary Lung - Right Lower Lobe Tissue Culture - Preliminary 03/29/22 10:24 Gram Stain - Preliminary Lung - Right Upper Lobe Tissue Culture - Preliminary 03/29/22 10:23 Gram Stain - Preliminary Lung - Right Tissue Culture - Preliminary - Imaging and Cardiology Chest x-ray: report reviewed, image reviewed Assessment and Plan Assessment: 1. Bilateral pulmonary fibrosis, status post bronchoscopy, video-assisted right sided lung biopsy of all 3 lobes, pathology pending 2. Pain, shortness of breath secondary to chest tube 3. History of mild COPD with previous tobacco dependence and home oxygen dependence 4. Covid infection April 2021 5. Coronary artery disease with myocardial infarction status post 3 vessel CABG in 2004 with subsequent PCI in 2016 as well as SPECIALIST PHYSICIAN stent placed at [facility] 12/17/2021 6. History of hypertension 7. History of hyperlipidemia 8. History of paroxysmal atrial fibrillation on Xarelto for anticoagulation, c urrently sinus rhythm 9. History of sick sinus syndrome status post pacemaker placement ([employer] in 2017 10. Tiny pneumothorax on follow-up x-ray, expected Plan: 1. Will remove chest tube today. Repeat chest x-ray after 1 hour, if stable will discharge to home 2. Encourage incentive spirometry use 10 times every hour while awake. Bronchodilators per pulmonology 3. Continue other home medications as scheduled. Will restart Xarelto today 4. Increase activity as tolerated, ambulate as tolerated 5. GI/DVT prophylaxis 6. More recommendations to follow
[2022-03-31] MEDS: IPRATROPIUM-ALBUTEROL 3 ML NEB INHALATION PRN (07:53)
[2022-03-31] MEDS: SYMBICORT 160-4.5 MCG INHALER INHALATION SCH (07:53)
[2022-03-31 08:16] LABS: HCT 41.7 % (39.0-53.0); HGB 13.3 gm/dL (13.0-17.5); Hypochromasia Slight; MCH 30.7 pg (25.0-35.0); MCV 95.9 fL (80.0-100.0); Mean Platelet Volume 7.7; Platelet Count 239 k/uL (150-450); RBC 4.35 m/uL (4.30-5.90); RDW 14.1 % (11.5-15.5); WBC 13.2 k/uL (3.8-10.6)
[2022-03-31] MEDS: ASPIRIN 325 MG TAB PO SCH (08:31)
[2022-03-31] MEDS: HEPARIN SODIUM,PORCINE/PF 5,000 UNIT/0.5 ML SYRINGE SQ SCH (08:31)
[2022-03-31] MEDS: PANTOPRAZOLE 40 MG TABLET PO SCH (08:32)
[2022-03-31] MEDS: buPROPion SR 150 MG TABLET.ER PO SCH (08:32)
[2022-03-31] MEDS: METOPROLOL TARTRATE 50 MG TAB PO SCH (08:32)
[2022-03-31] MEDS: GABAPENTIN 300 MG CAP PO SCH (08:32)
[2022-03-31] MEDS: ZINC SULFATE 220 MG CAP PO SCH (08:32)
[2022-03-31] MEDS: CLOPIDOGREL 75 MG TAB PO SCH (08:32)
[2022-03-31] MEDS: predniSONE 5 MG TAB PO SCH (08:32)
[2022-03-31] MEDS: FERROUS SULFATE 325 MG TAB PO SCH (08:32)
[2022-03-31] MEDS: SENNOSIDES-DOCUSATE SODIUM 1 EACH TAB PO SCH (08:32)
[2022-03-31] MEDS: FLUTICASONE 50MCG/SPRAY NASAL 16GM EA NOSTRIL SCH (08:33)
[2022-03-31 08:57] LABS: Calcium 8.7 mg/dL (8.4-10.2); Potassium 4.4 mmol/L (3.5-5.1)
--- NOTE | 2022-03-31 09:17 | XR ---
EXAMINATION TYPE: XR chest 2V DATE OF EXAM: 03/31/2022 COMPARISON: Chest x-ray earlier today. HISTORY: Post chest tube removal. TECHNIQUE: Frontal and lateral views of the chest are obtained. FINDINGS: Interval removal of right-sided chest tube. Persistent low lung volumes and chronic parenchymal changes with persistent right midlung consolidati on and bibasilar opacities. Elevated right hemidiaphragm redemonstrated. Tiny residual right lateral pneumothorax remains present after chest tube removal. Minimal Adjacent subcutaneous emphysema redemo nstrated. Cardiac silhouette size stable and upper limits of normal with dual lead pacemaker. Overlyi ng sternal wires redemonstrated. Osseous structures are intact. IMPRESSION: Stable tiny right lateral pneumothorax after right-sided chest tube removal. Chronic patel ges and low lung volumes with persistent lateral right midlung consolidation and persistent bibasilar acute infiltrates and/or atelectasis. No significant interval change since earlier today.
--- NOTE | 2022-03-31 09:23 | P.DS ---
Providers Date of admission: 03/29/22 07:18 Expected date of discharge: 03/31/22 Attending physician: Kurt Gage MD Consults: 03/29/22 11:15 Consult Physician Routine Consulting Provider: Korin Harris Consult Reason/Comments: post lung biopsy; Din[place] patient Do you want consulting provider notified?: Yes Primary care physician: Emilia Bob Hospital Course: FINAL DIAGNOSIS: 1. Bilateral pulmonary fibrosis 2. Mild COPD with previous tobacco dependence and home oxygen dependence 3. Covid infection April 2021 4. Coronary artery disease with previous myocardial infarction status post three-vessel CABG in 2004, PCI 2016, [employer] stent placed at [facility] 12/17/2021 5. History of hypertension 6. History of hyperlipidemia 7. History of paroxysmal atrial fibrillation on Xarelto for anticoagulation 8. History of sick sinus syndrome status post [employer] permanent pacemaker in 2016 9. Tiny pneumothorax on follow-up x-ray, expected due to adhesions noted during surgery PRINCIPAL PROCEDURE: 1. Bronchoscopy, video-assisted thoracoscopic right sided lung biopsy of all 3 lobes, pathology pending at discharge HISTORY OF PRESENT ILLNESS: This is a 71-year-old gentleman who follows on an outpatient basis with Dr. Farias for pulmonary. This gentleman was diagnosed with Covid in June 2021 and does have a history of COPD, but prior to his Covid infection he noticed a steady decline in his lung function and increased shortness of breath. CT of the chest completed in December 2021 demonstrated mild pulmonary fibrotic changes in the lung bases, more on the right which was suggestive of early interstitial lung disease. The patient was referred to Dr. Gage from cardiothoracic surgery. He was recommended to undergo surgical lung biopsy. The usual perioperative course was discussed in detail with the patient and his family, all risks and benefits were explained, all questions were answered, and consent was obtained to proceed with surgery. The patient had a recent heart catheterization with stent placed and needed some time on Plavix. Once it was safe to take patient off Plavix for a few days, as well as Xarelto which he takes for PAF, surgery was scheduled. HOSPITAL COURSE: The patient was brought to the hospital on 03/29/22, taken to the preoperative area, prepared in the usual fashion, and subsequently taken to the operating room where Dr. Gage performed a bronchoscopy and right-sided VATS for lung biopsy. Upon completion of surgery the patient was extubated and taken to the recovery room where he was monitored hemodynamically. He was eventually admitted to 3 self cardiac stepdown unit. There was no air leak post surgery and his chest tube was placed to waterseal the night of surgery. The following morning chest x-ray revealed what appeared to be a small pneumothorax although there were still no air leak in the chest tube chamber, the patient was having significant pain and unable to take a deep breath. Pain medications were adjusted, the following morning chest x-ray remained stable and his right-sided chest tube was discontinued without incident. Follow-up chest x-ray continued to be stable. His oxygen was titrated down to his home dose , he was tolerating oral diet, his pain was controlled, and he was ready to be discharged to home on postoperative day #2. He received written and verbal instruction regarding his medications, activity restrictions, signs and symptoms requiring physician notification, and follow-up appointments. Patient Condition at Discharge: Stable Plan - Discharge Summary Discharge Rx Participant: Yes New Discharge Prescriptions: New HYDROcodone/APAP 10-325MG [[place] 10-325] 1 each PO Q6HR PRN #28 tab PRN Reason: Pain Continue Gabapentin [Neurontin] 300 mg PO BID Ferrous Sulfate [Iron (65 MG Elemental)] 325 mg PO DAILY Clopidogrel [Plavix] 75 mg PO DAILY #90 tab polyethylene glycoL 3350 [Miralax] 17 gm PO HS PRN PRN Reason: Constipation Acetaminophen Tab [Tylenol] 650 mg PO Q6H PRN PRN Reason: Pain predniSONE 5 mg PO DAILY Ipratropium-Albuterol Nebulize [Duoneb 0.5 mg-3 mg/3 ml Soln] 3 ml INHALATION QID PRN PRN Reason: sob Budesonide/Formoterol Fumarate [Symbicort 160-4.5 Mcg Inhaler] 2 puff INHALATION QAM Albuterol Inhaler [Ventolin Hfa Inhaler] 1 - 2 puff INHALATION RT-BID PRN PRN Reason: Shortness Of Breath buPROPion HCL [Wellbutrin SR] 150 mg PO BID Rivaroxaban [Xarelto] 15 mg PO W/SUPPER Pantoprazole Sodium [Protonix] 40 mg PO DAILY lisinopriL [Zestril] 2.5 mg PO HS Isosorbide Mononitrate ER [Imdur] 30 mg PO 1200 Nitroglycerin Sl Tabs [Nitrostat] 0.4 mg SUBLINGUAL Q5M PRN PRN Reason: Chest Pain Aspirin [Adult Low Dose Aspirin EC] 324 mg PO DAILY Loratadine-Pseudoeph 5-120 mg [Claritin-D 12 Hour] 1 tab PO Q12HR PRN PRN Reason: allergies Metoprolol Tartrate [Lopressor] 50 mg PO BID Atorvastatin [Lipitor] 40 mg PO HS Fluticasone Nasal [place] [Flonase Nasal [place]] 2 spray EA NOSTRIL DAILY Zinc 50 mg PO DAILY Discharge Medication List Gabapentin [Neurontin] 300 mg PO BID 10/08/14 [History] Ferrous Sulfate [Iron (65 MG Elemental)] 325 mg PO DAILY 09/03/16 [History] Clopidogrel [Plavix] 75 mg PO DAILY #90 tab 09/07/16 [Rx] polyethylene glycoL 3350 [Miralax] 17 gm PO HS PRN 10/30/16 [History] Acetaminophen Tab [Tylenol] 650 mg PO Q6H PRN 07/19/18 [History] Albuterol Inhaler [Ventolin Hfa Inhaler] 1 - 2 puff INHALATION RT-BID PRN 07/19/18 [History] Budesonide/Formoterol Fumarate [Symbicort 160-4.5 Mcg Inhaler] 2 puff INHALATION QAM 07/19/18 [History] Ipratropium-Albuterol Nebulize [Duoneb 0.5 mg-3 mg/3 ml Soln] 3 ml INHALATION QID PRN 07/19/18 [History] Rivaroxaban [Xarelto] 15 mg PO W/SUPPER 07/19/18 [History] buPROPion HCL [Wellbutrin SR] 150 mg PO BID 07/19/18 [History] predniSONE 5 mg PO DAILY 07/19/18 [History] Pantoprazole Sodium [Protonix] 40 mg PO DAILY 08/19/18 [History] lisinopriL [Zestril] 2.5 mg PO HS 08/19/18 [History] Isosorbide Mononitrate ER [Imdur] 30 mg PO 1200 10/19/18 [History] Aspirin [Adult Low Dose Aspirin EC] 324 mg PO DAILY 11/19/21 [History] Atorvastatin [Lipitor] 40 mg PO HS 11/19/21 [History] Fluticasone Nasal [place] [Flonase Nasal [place]] 2 spray EA NOSTRIL DAILY 11/19/21 [History] Metoprolol Tartrate [Lopressor] 50 mg PO BID 11/19/21 [History] Nitroglycerin Sl Tabs [Nitrostat] 0.4 mg SUBLINGUAL Q5M PRN 11/19/21 [History] Zinc 50 mg PO DAILY 11/19/21 [History] Loratadine-Pseudoeph 5-120 mg [Claritin-D 12 Hour] 1 tab PO Q12HR PRN 03/27/22 [History] HYDROcodone/APAP 10-325MG [[place] 10-325] 1 each PO Q6HR PRN #28 tab 03/31/22 [Rx] Follow up Appointment(s)/Referral(s): Cris Falk MD [STAFF PHYSICIAN] - As Needed Clarke Farias DO [Doctor of Osteopathic Medicine] - 04/19/22 1:45 pm Kurt Gage MD [STAFF PHYSICIAN] - 04/04/22 2:30 pm (Your appointment will be with Catia HERNÁNDEZ for incision check. Pathology results will be discussed when you follow up with Dr. Farias) Activity/Diet/Wound Care/Special Instructions: DISCHARGE INSTRUCTIONS: 1. No driving for 2 weeks, or until physician gives their ok. 2. No lifting, pushing, or pulling more than 10 pounds for 2 weeks. The physician will advise of any restriction changes. 3. Continue pain control per as needed orders. Alternate acetaminophen (Tylenol) and ibuprofen (Motrin/Advil) for pain. 4. Continue with incentive spirometry and splinting until otherwise directed by the physician. 5. Leave chest tube dressing for 48 hours. After that, remove all dressings and shower daily. 6. Routine incision care. No powders, lotions, ointments on incisions. 7. Please call surgeon/[facility] for temp greater than 101 F or purulent drainage from incisions. Discharge Disposition: HOME SELF-CARE
[2022-03-31] MEDS: ISOSORBIDE MONONITRATE ER 30 MG TAB.ER.24H PO SCH (12:04)
[2022-03-31 12:16] VITALS: BP 110/68; PULSE 59; RESP 15; TEMP 97
--- NOTE | 2022-03-31 13:08 | P.PN ---
Subjective Progress Note Date: 03/31/22 Principal diagnosis: Interstitial lung disease/pulmonary fibrosis, status post VATS lung biopsy postoperative day #2 This is a 71-year-old white male with history of multiple medical problems including previous history of coronary artery disease and previous CABG in 2004, benign essential hypertension, GERD, and paroxysmal atrial fibrillation. Patient came down with COVID-19 infection back in June of 2021, and since then the patient has been noticing significant shortness of breath with any exertion. Patient was seen by Dr. Mathews on consultation, he had extensive workup on outpatient basis, CT of the chest date showed pulmonary fibrotic changes in the lung bases, suggestive of interstitial lung disease, hence the patient was referred to see the thoracic surgeon for VATS lung biopsy, this was done today and postoperatively this consult was initiated. Patient is doing fairly well except for expected postoperative pain. He is on 2 L nasal cannula, and O2 saturation is 99% reevaluated today on 03/30/2022, Reevaluated today on 03/30/2022, patient is postoperative day #1 underwent bronchoscopy and VD-assisted the right-sided lung biopsy. Patient continues to have right-sided chest pain at the site of the tube insertion. Painful when he takes a deep breath, he is on 2 L nasal cannula and O2 saturation is in the 90s. He is doing poorly with incentive spirometry cannot take a deep breath. His right-sided chest tube remains in place, no megaly, however it was placed to waterseal and it will be kept there for another day. Small tiny right sided lateral pneumothorax is noted otherwise no major changes in the chest x-ray findings and in his interstitial lung disease. CBC today is normal hemoglobin is 13.8 Reevaluated today on 03/31/2022, patient is postoperative day #2. Today the patient is doing well, his chest tube has been removed. Chest x-ray showed improvement in his overall hypoventilatory status, patient is doing well with incentive spirometry, hence I will clear the patient to be discharged home as scheduled. Chest x-ray from today was reviewed. Objective - Vital Signs Vital signs: Vital Signs Temp 97.0 F L 03/31/22 12:00 Pulse 59 L 03/31/22 12:00 Resp 15 03/31/22 12:00 BP 110/68 03/31/22 12:00 Pulse Ox 99 03/31/22 12:00 FiO2 Intake & Output 03/30/22 03/31/22 03/31/22 18:59 06:59 18:59 Intake Total 898 360 780 Output Total 300 Balance 898 60 780 Weight 74.8 kg Intake: Oral 898 360 780 Output: Drainage 300 Right Chest 300 Other: Voiding Method Toilet Toilet Toilet # Voids 3 - Exam Physical Exam: Revealed a 71-year-old white male in no distress, on 2 L nasal cannula Head: Atraumatic, normocephalic. HEENT:[Neck is supple.] [No neck masses.] [No thyromegaly.] [No JVD.] Chest: [Symmetrical chest expansion, minimal fine crackles at the bases Cardiac Exam: [Normal S1 and S2, no S3 gallop, no murmur.] Abdomen: [Soft, nontender, no megaly, no rebound, no guarding, normal bowel sounds.] Extremities: [No clubbing, no edema, no cyanosis.] Neurological Exam: [No focal neurologic deficit.] Alert and oriented 3. Psychiatric: Normal mood, affect and normal mental status examination Skin: No rashes. - Labs CBC & Chem 7: 03/31/22 07:48 03/31/22 07:48 Labs: Abnormal Lab Results - Last 24 Hours (Table) 03/30/22 03/30/22 03/31/22 Range/Units 07:04 20:32 07:48 WBC 13.2 H (3.8-10.6) k/uL Sodium 131 L (137-145) mmol/L BUN (9-20) mg/dL POC Glucose (mg/dL) 112 H (70-110) mg/dL 03/31/22 Range/Units 07:48 WBC (3.8-10.6) k/uL Sodium 132 L (137-145) mmol/L BUN 32 H (9-20) mg/dL POC Glucose (mg/dL) (70-110) mg/dL Microbiology - Last 24 Hours (Table) 03/29/22 10:25 Acid Fast Bacilli Smear - Final Lung - Right Lower Lobe Acid Fast Bacilli Culture - Preliminary 03/29/22 10:23 Acid Fast Bacilli Smear - Final Lung - Right Acid Fast Bacilli Culture - Preliminary 03/29/22 10:24 Acid Fast Bacilli Smear - Final Lung - Right Upper Lobe Acid Fast Bacilli Culture - Preliminary 03/29/22 10:25 Gram Stain - Preliminary Lung - Right Lower Lobe Tissue Culture - Preliminary 03/29/22 10:24 Gram Stain - Preliminary Lung - Right Upper Lobe Tissue Culture - Preliminary 03/29/22 10:23 Gram Stain - Preliminary Lung - Right Tissue Culture - Preliminary Assessment and Plan Assessment: Impression: Interstitial lung disease, most likely induced by history of covid19 infection/pneumonia however the possibility of early IPF or nonspecific interstitial pneumonitis has to be considered. Status post VATS lung biopsy, awaiting report in the next few days. Mild/Gold stage II COPD Chronic atrial fibrillation, on Xarelto Degenerative joint disease History of hiatal hernia History of pacemaker implantation History of cardiac catheterization and stent placement, history of coronary artery disease Postoperative, small tiny pneumothorax, lateral, expected Recommendation: Agree with discharge planning home today Follow-up with Dr. Farias post discharge. Time with Patient: Less than 30
[2022-03-31] MEDS ORDERED: RIVAROXABAN 15 MG TAB PO SCH (17:30)
== END 2022-03-31 12:20 | disposition home or self-care (01) | DRG 168 ==
LOC: 2ORMAIN 07:18 → 3SCARD 10:25
PROVIDERS: ADMIT Thoracic Surgery (Cardiothoracic Vascular Surgery); ATTEND Thoracic Surgery (Cardiothoracic Vascular Surgery)
PROC: 0BBC4ZX Excision of Right Upper Lung Lobe, Percutaneous Endoscopic Approach, Diagnostic (ICD-10-PCS; principal; 2022-03-29 09:00)
PROC: 0BBF4ZX Excision of Right Lower Lung Lobe, Percutaneous Endoscopic Approach, Diagnostic (ICD-10-PCS; principal; 2022-03-29 09:00)
PROC: 0BBD4ZX Excision of Right Middle Lung Lobe, Percutaneous Endoscopic Approach, Diagnostic (ICD-10-PCS; principal; 2022-03-29 09:00)
DX: J84.10 Pulmonary fibrosis, unspecified (principal); I49.5 Sick sinus syndrome; J44.9 Chronic obstructive pulmonary disease, unspecified; I48.0 Paroxysmal atrial fibrillation; U09.9 Post COVID-19 condition, unspecified; E78.5 Hyperlipidemia, unspecified; I25.2 Old myocardial infarction; I25.10 Atherosclerotic heart disease of native coronary artery without angina pectoris; I10 Essential (primary) hypertension; K21.9 Gastro-esophageal reflux disease without esophagitis; K44.9 Diaphragmatic hernia without obstruction or gangrene; K64.9 Unspecified hemorrhoids; M51.9 Unspecified thoracic, thoracolumbar and lumbosacral intervertebral disc disorder; M19.90 Unspecified osteoarthritis, unspecified site; Z99.81 Dependence on supplemental oxygen; Z79.82 Long term (current) use of aspirin; Z79.51 Long term (current) use of inhaled steroids; Z79.02 Long term (current) use of antithrombotics/antiplatelets; Z79.01 Long term (current) use of anticoagulants; Z79.899 Other long term (current) drug therapy; Z87.891 Personal history of nicotine dependence; Z87.01 Personal history of pneumonia (recurrent); Z95.1 Presence of aortocoronary bypass graft; Z95.5 Presence of coronary angioplasty implant and graft; Z95.0 Presence of cardiac pacemaker; Z88.6 Allergy status to analgesic agent
CPT/HCPCS: 71045; 71046; 80048; 85025; 85027; 86850; 86900; 86901; 87070; 87075; 87102; 87116; 87205; 87206; 88307; 94640

== ENCOUNTER → 2022-05-29 | Outpatient (CLI) | payer OTHER ==
[2022-05-29 18:07] LABS: African American GFR (CKD) 102.9 (60.0-200.0); Albumin 3.9 g/dL (3.8-4.9); Albumin/Globulin Ratio 1.53 (1.60-3.17); Anion Gap 8.3 mmol/L (10.00-18.00); BUN/Creat Ratio 10.01 Ratio (12.00-20.00); Blood Urea Nitrogen 8.5 mg/dL (9.0-27.0); Calcium 9.4 mg/dL (8.7-10.3); Carbon Dioxide 26.9 mmol/L (20.0-27.5); Globulin 2.5 g/dL (1.6-3.3); Non-African American GFR(CKD) 88.8 (60.0-200.0); Potassium 4.7 mmol/L (3.5-5.5); Total Bilirubin 0.3 mg/dL (0.30-1.20); Total Protein 6.4 g/dL (6.2-8.2)
== END | disposition home or self-care (01) ==
LOC: LABWHC1 12:06
PROVIDERS: ATTEND Internal Medicine Critical Care Medicine
DX: Z79.899 Other long term (current) drug therapy (principal)
CPT/HCPCS: 36415; 80053

== ENCOUNTER → 2022-08-27 | Outpatient (CLI) | payer OTHER ==
[2022-08-27 19:13] LABS: African American GFR (CKD) 99.9 (60.0-200.0); Albumin 3.7 g/dL (3.8-4.9); Albumin/Globulin Ratio 1.48 (1.60-3.17); Anion Gap 10.9 mmol/L (10.00-18.00); BUN/Creat Ratio 12.44 Ratio (12.00-20.00); Blood Urea Nitrogen 11.2 mg/dL (9.0-27.0); Calcium 9.6 mg/dL (8.7-10.3); Carbon Dioxide 24.1 mmol/L (20.0-27.5); Globulin 2.5 g/dL (1.6-3.3); Non-African American GFR(CKD) 86.2 (60.0-200.0); Potassium 3.5 mmol/L (3.5-5.5); Total Bilirubin 0.3 mg/dL (0.30-1.20); Total Protein 6.2 g/dL (6.2-8.2)
== END | disposition home or self-care (01) ==
LOC: LABWHC1 13:00
PROVIDERS: ATTEND Internal Medicine Critical Care Medicine
DX: Z79.899 Other long term (current) drug therapy (principal)
CPT/HCPCS: 36415; 80053

== ENCOUNTER → 2022-12-10 | Outpatient (CLI) | payer OTHER ==
--- NOTE | 2022-12-10 16:25 | CT ---
EXAMINATION TYPE: CT chest wo con CT DLP: 674.70 mGycm, Automated exposure control for dose reduction was used. DATE OF EXAM: 12/10/2022 3:29 PM COMPARISON: Chest radiograph 03/31/2022, CT chest 01/08/2022 CLINICAL INDICATION:Male, 72 years old with history of J84.10; PHH, pulmonary fibrosis. High Resoluti on TECHNIQUE: Multiple axial images were obtained through the chest without IV contrast. Lack of IV or o ral contrast limits evaluation of solid and hollow organ viscera. High-resolution protocol was utilized. FINDINGS: Overall similar COPD changes with pulmonary emphysematous changes primarily within the upper and midl dl zones. Paraseptal emphysematous changes are again noted. Similar bilateral basal subsegmental pul monary atelectasis with groundglass opacities and mild pulmonary fibrotic changes which is most prono unced on the right. No pleural effusions or pneumothorax. Bibasilar bronchiectasis. Bilateral calcifi ed pleural plaques identified. Correlation with prior asbestosis exposure is recommended. Stable left upper lobe 4 mm pulmonary nodule (series 4, image 136). Patent trachea and main bronchi. No dynamic airway collapse. Small round atelectasis again demonstrat ed within the left lung base posteriorly. No thoracic aortic aneurysm. Scattered coronary arterial atherosclerotic calcifications. No significa nt pericardial effusion. Stable right paratracheal lymph node measuring up to 1.1 cm short axis. Molina tional scattered prominent mediastinal lymph nodes redemonstrated. Small hiatal hernia. Midline rader al wires. Left upper chest wall pacemaker redemonstrated. IMPRESSION: Overall stable examination with combined pulmonary fibrosis and emphysematous changes. Stable left upper lobe 4 mm pulmonary nodule. No new or enlarging pulmonary nodules.
== END | disposition home or self-care (01) ==
LOC: RADCTMAIN 15:04
PROVIDERS: ATTEND Internal Medicine Critical Care Medicine
DX: J43.9 Emphysema, unspecified (principal); J84.10 Pulmonary fibrosis, unspecified; R91.1 Solitary pulmonary nodule
CPT/HCPCS: 71250

== ENCOUNTER → 2022-12-10 | Outpatient (CLI) | payer OTHER ==
[2022-12-10 23:06] LABS: African American GFR (CKD) 104.9 (60.0-200.0); Albumin 4.2 g/dL (3.8-4.9); Albumin/Globulin Ratio 1.83 (1.60-3.17); Anion Gap 8.4 mmol/L (10.00-18.00); BUN/Creat Ratio 11.5 Ratio (12.00-20.00); Blood Urea Nitrogen 9.2 mg/dL (9.0-27.0); Calcium 9.8 mg/dL (8.7-10.3); Carbon Dioxide 28.6 mmol/L (20.0-27.5); Globulin 2.3 g/dL (1.6-3.3); Non-African American GFR(CKD) 90.5 (60.0-200.0); Potassium 3.9 mmol/L (3.5-5.5); Total Bilirubin 0.3 mg/dL (0.30-1.20); Total Protein 6.5 g/dL (6.2-8.2)
== END | disposition home or self-care (01) ==
LOC: LABWHC1 15:29
PROVIDERS: ATTEND Internal Medicine Critical Care Medicine
DX: J84.112 Idiopathic pulmonary fibrosis (principal); Z79.01 Long term (current) use of anticoagulants
CPT/HCPCS: 36415; 80053

== ENCOUNTER → 2022-12-24 | Outpatient (CLI) | payer OTHER ==
[2022-12-24 19:49] LABS: African American GFR (CKD) 99.9 (60.0-200.0); Albumin 4.1 g/dL (3.8-4.9); Albumin/Globulin Ratio 1.86 (1.60-3.17); Blood Urea Nitrogen 9.9 mg/dL (9.0-27.0); Calcium 9.7 mg/dL (8.7-10.3); Globulin 2.2 g/dL (1.6-3.3); Non-African American GFR(CKD) 86.2 (60.0-200.0); Total Bilirubin 0.4 mg/dL (0.30-1.20); Total Protein 6.3 g/dL (6.2-8.2)
== END | disposition home or self-care (01) ==
LOC: LABWHC1 13:33
PROVIDERS: ATTEND Internal Medicine Critical Care Medicine
DX: I10 Essential (primary) hypertension (principal); I25.10 Atherosclerotic heart disease of native coronary artery without angina pectoris; J84.112 Idiopathic pulmonary fibrosis; Z79.899 Other long term (current) drug therapy
CPT/HCPCS: 36415; 80053

== ENCOUNTER 2023-06-24 11:03 | Inpatient (IN) | payer OTHER, MEDICARE ==
[2023-06-24 11:58] LABS: Partial Thromboplastin Time 27.9 sec (22.0-30.0); Prothrombin Time 10.7 sec (9.0-12.0)
[2023-06-24 11:59] LABS: ALT 38 U/L (4-49); AST 37 U/L (17-59); African American GFR (CKD) >90 (>60 ml/min/1.73 sqM); Albumin 3.5 g/dL (3.5-5.0); Alkaline Phosphatase 78 U/L (38-126); Anion Gap 11 mmol/L; Blood Urea Nitrogen 11 mg/dL (9-20); Calcium 9.2 mg/dL (8.4-10.2); Carbon Dioxide 23 mmol/L (22-30); Chloride 104 mmol/L (98-107); Glucose 110 mg/dL (74-99); Non-African American GFR(CKD) >90 (>60 ml/min/1.73 sqM); Potassium 4.1 mmol/L (3.5-5.1); Sodium 138 mmol/L (137-145); Total Bilirubin 0.5 mg/dL (0.2-1.3); Total Protein 6.3 g/dL (6.3-8.2)
[2023-06-24 12:03] LABS: Basophils % (A) 0 %; Eosinophils # (A) 0.1 k/uL (0-0.7); Eosinophils % (A) 1 %; HCT 47.3 % (39.0-53.0); HGB 15.2 gm/dL (13.0-17.5); Lymphocytes # (A) 1.1 k/uL (1.0-4.8); Lymphocytes % (A) 10 %; MCH 30.2 pg (25.0-35.0); MCHC 32.1 g/dL (31.0-37.0); MCV 94.1 fL (80.0-100.0); Mean Platelet Volume 7.7; Monocytes # (A) 0.9 k/uL (0-1.0); Monocytes % (A) 8 %; Neutrophils # (A) 8.8 k/uL (1.3-7.7); Neutrophils % (A) 80 %; Platelet Count 250 k/uL (150-450); RBC 5.02 m/uL (4.30-5.90); RDW 14.2 % (11.5-15.5)
[2023-06-24 12:07] LABS: NT-Pro-B-Type Natriuretic Pept 755 pg/mL
--- NOTE | 2023-06-24 12:07 | ED ---
General Adult HPI - General Chief complaint: Shortness of Breath Stated complaint: low o2 Time Seen by Provider: 06/24/23 11:50 Source: patient, RN notes reviewed, old records reviewed Mode of arrival: ambulatory Limitations: no limitations - History of Present Illness Initial comments: This is a 72-year-old male with a past medical history significant for bypass surgery multiple stent placements and a history of COPD and pulmonary fibrosis. Patient comes into the emergency department today complaining that the last few days he's had a hard time breathing. Patient states when he moves or exerts himself especially going upstairs he feels short of breath weak and his pulse ox dropped down to the 70 percentile region. Patient states he had chest pain started night and 2 nitroglycerin took the pain away. Patient denies any pain currently. Patient states he doesn't even feel short of breath as long as he is lying still. Patient denies any recent fever chills or cough. Patient denies any lightheadedness or dizziness. Patient denies any abdominal pain patient denies any back pain. - Related Data Home Medications Medication Instructions Recorded Confirmed Gabapentin [Neurontin] 300 mg PO BID 10/08/14 03/29/22 Ferrous Sulfate [Iron (65 MG 325 mg PO DAILY 09/03/16 03/29/22 Elemental)] polyethylene glycoL 3350 [Miralax] 17 gm PO HS PRN 10/30/16 03/29/22 Acetaminophen Tab [Tylenol] 650 mg PO Q6H PRN 07/19/18 03/29/22 Albuterol Inhaler [Ventolin Hfa 1 - 2 puff INHALATION RT-BID PRN 07/19/18 03/29/22 Inhaler] Budesonide/Formoterol Fumarate 2 puff INHALATION QAM 07/19/18 03/29/22 [Symbicort 160-4.5 Mcg Inhaler] Ipratropium-Albuterol Nebulize 3 ml INHALATION QID PRN 07/19/18 03/29/22 [Duoneb 0.5 mg-3 mg/3 ml Soln] Rivaroxaban [Xarelto] 15 mg PO W/SUPPER 07/19/18 03/29/22 buPROPion HCL [Wellbutrin SR] 150 mg PO BID 07/19/18 03/29/22 predniSONE 5 mg PO DAILY 07/19/18 03/29/22 Pantoprazole Sodium [Protonix] 40 mg PO DAILY 08/19/18 03/29/22 lisinopriL [Zestril] 2.5 mg PO HS 08/19/18 03/29/22 Isosorbide Mononitrate ER [Imdur] 30 mg PO 1200 10/19/18 03/29/22 Aspirin [Adult Low Dose Aspirin EC] 324 mg PO DAILY 11/19/21 03/29/22 Atorvastatin [Lipitor] 40 mg PO HS 11/19/21 03/29/22 Fluticasone Nasal [place] [employer] [Flonase 2 spray EA NOSTRIL DAILY 11/19/21 03/29/22 Nasal [employer]] Metoprolol Tartrate [Lopressor] 50 mg PO BID 11/19/21 03/29/22 Nitroglycerin Sl Tabs [Nitrostat] 0.4 mg SUBLINGUAL Q5M PRN 11/19/21 03/29/22 Zinc 50 mg PO DAILY 11/19/21 03/29/22 Loratadine-Pseudoeph 5-120 mg 1 tab PO Q12HR PRN 03/27/22 03/29/22 [Claritin-D 12 Hour] Previous Rx's Medication Instructions Recorded Clopidogrel [Plavix] 75 mg PO DAILY #90 tab 09/07/16 HYDROcodone/APAP 10-325MG [[place] 1 each PO Q6HR PRN #28 tab 03/31/22 10-325] Allergies Allergy/AdvReac Type Severity Reaction Status Date / Time ibuprofen [From Motrin IB] AdvReac Unknown Verified 06/24/23 11:12 Review of Systems ROS Statement: Those systems with pertinent positive or pertinent negative responses have been documented in the HPI. ROS Other: All systems not noted in ROS Statement are negative. Past Medical History Past Medical History: Atrial Fibrillation, Coronary Artery Disease (CAD), COPD, GERD/Reflux, Hyperlipidemia, Hypertension, Musculoskeletal Disorder, Osteoarthritis (OA), Pneumonia, Respiratory Disorder Additional Past Medical History / Comment(s): Hx Covid 05/12 with antidody treatment. Bradycardia with pacemaker, lumbar disc disorder, small hiatal her parveen, ventral hernia, hx anemia, hx hemmorrhoids with bleeding. pulm fibrosis History of Any Multi-Drug Resistant Organisms: None Reported Past Surgical History: Coronary Bypass/CABG, Heart Catheterization, Heart Catheterization With Stent, Hernia Repair, Orthopedic Surgery, Pacemaker Additional Past Surgical History / Comment(s): Vasectomy, 3 vessel CABG 2004, BILATERAL CATARACT, VASECTOMY, BONE INFUSION MIDDLE LEFT FINGER CRUSHING INJURY, right knee arthroscopy, [employer] pacemaker placed 11/04/16, 3 stents to Circ 12/16/16, ventricular lead replacement 08/21/2018, hematoma evacuation from pacemaker site 08/23/2018. Past Anesthesia/Blood Transfusion Reactions: No Reported Reaction Date of Last Stent Placement:: 12/16/16 Type of Cardiac Device: Permanent Pacemaker Device Placement Date:: 11/04/16 Past Psychological History: No Psychological Hx Reported Smoking Status: Former smoker Past Alcohol Use History: Rare Past Drug Use History: None Reported - Past Family History Father Family Medical History: Cancer Additional Family Medical History / Comment(s): . Mother Family Medical History: Coronary Artery Disease (CAD) Additional Family Medical History / Comment(s): HEART PROBLEMS. Sister(s) Family Medical History: Cancer Additional Family Medical History / Comment(s): Lymph nodes. Brother(s) Family Medical History: Cancer General Exam - General Exam Comments Initial Comments: GENERAL: Patient is well-developed and well-nourished. Patient is nontoxic and well- hydrated and is in mild distress. ENT: Neck is soft and supple. No significant lymphadenopathy is noted. Oropharynx is clear. Moist mucous membranes. Neck has full range of motion without eliciting any pain. EYES: The sclera were anicteric and conjunctiva were pink and moist. Extraocular movements were intact and pupils were equal round and reactive to light. Eyelids were unremarkable. PULMONARY: Unlabored respirations. Good breath sounds bilaterally. No audible rales rhonchi or wheezing was noted. CARDIOVASCULAR: There is a regular rate and rhythm without any murmurs gallops or rubs. ABDOMEN: Soft and nontender with normal bowel sounds. SKIN: Skin is clear with no lesions or rashes and otherwise unremarkable. NEUROLOGIC: Patient is alert and oriented x3. Cranial nerves II through XII are grossly intact. Motor and sensory are also intact. Normal speech, volume and content. Symmetrical smile. MUSCULOSKELETAL: Normal extremities with adequate strength and full range of motion. LYMPHATICS: No significant lymphadenopathy is noted PSYCHIATRIC: Normal psychiatric evaluation. Limitations: no limitations Course Vital Signs 10/03/23 10/03/23 11:09 12:03 Temperature 98 F Pulse Rate 59 L 58 L Respiratory 22 16 Rate Blood Pressure 148/67 150/83 O2 Sat by Pulse 92 L 92 L Oximetry Medical Decision Making - Medical Decision Making EKG was interpreted by myself. EKG shows a sinus rhythm at 59 bpm NC interval is 167 QRS is under 55 QT interval 453 QTC is 452. Patient's EKG shows a right bundle branch block. Was pt. sent in by a medical professional or institution (, MARILY, ACCOUNT GROUP SUPERVISOR, urgent care, hospital, or detention...) When possible be specific @ -No Did you speak to anyone other than the patient for history (EMS, parent, family, police, friend...)? What history was obtained from this source @ -No Did you review nursing and triage notes (agree or disagree)? Why? @ -I reviewed and agree with nursing and triage notes Were old charts reviewed (outside hosp., previous admission, EMS record, old EKG, old radiological studies, urgent care reports/EKG's, detention records)? Report findings @ -I reviewed old charts and old radiological studies an old lab work on this patient Differential Diagnosis (chest pain, altered mental status, abdominal pain women, abdominal pain men, vaginal bleeding, weakness, fever, dyspnea, syncope, headache, dizziness, GI bleed, back pain, seizure, CVA, palpatations, mental health, musculoskeletal)? @ -Differential dyspnea EKG interpreted by me (3pts min.). @ -As above X-rays interpreted by me (1pt min.). @ -X-ray is consistent with pulmonary fibrosis and possible underlying pneumonia CT interpreted by me (1pt min.). @ -None done U/S interpreted by me (1pt. min.). @ -None done What testing was considered but not performed or refused? (CT, X-rays, U/S, labs)? Why? @ -None What meds were considered but not given or refused? Why? @ -None Did you discuss the management of the patient with other professionals (professionals i.e. MARILY Herrera, ACCOUNT GROUP SUPERVISOR, lab, RT, psych nurse, director social service, dust mixer, teacher, parking control officer, casey saw operator)? Give summary @ -I spoke with Dr. Hewitt and he agreed to admit the patient Was smoking cessation discussed for >3mins.? @ -No Was critical care preformed (if so, how long)? @ -No Were there social determinants of health that impacted care today? How? (Homelessness, low income, unemployed, alcoholism, drug addiction, transpor tation, low edu. Level, literacy, decrease access to med. care, prison, rehab)? @ -No Was there de-escalation of care discussed even if they declined (Discuss DNR or withdrawal of care, Hospice)? DNR status @ -No What co-morbidities impacted this encounter? (DM, HTN, Smoking, COPD, CAD, Cancer, CVA, ARF, Chemo, Hep., AIDS, mental health diagnosis, sleep apnea, morbid obesity)? @ -None Was patient admitted / discharged? Hospital course, mention meds given and route, prescriptions, significant lab abnormalities, going to OR and other pertinent info. @ -Started on antibiotics in the emergency department as well as steroids. Dr. Hewitt agreed to admit the patient and I consult the pulmonary Undiagnosed new problem with uncertain prognosis? @ -No Drug Therapy requiring intensive monitoring for toxicity (Heparin, Nitro, Insulin, Cardizem)? @ -No Were any procedures done? @ -No Diagnosis/symptom? @ -Pneumonia Acute, or Chronic, or Acute on Chronic? @ -Acute Uncomplicated (without systemic symptoms) or Complicated (systemic symptoms)? @ -Complicated Side effects of treatment? @ -No Exacerbation, Progression, or Severe Exacerbation? @ -No Poses a threat to life or bodily function? How? (Chest pain, [place], [place], pneumonia, PE, COPD, DKA, ARF, appy, cholecystitis, CVA, Diverticulitis, Homicidal, Suicidal, threat to staff... and all critical care pts) @ -No Diagnosis/symptom? @ -Pulmonary fibrosis Acute, or Chronic, or Acute on Chronic? @ -Acute Uncomplicated (without systemic symptoms) or Complicated (systemic symptoms)? @ -Complicated Side effects of treatment? @ -none Exacerbation, Progression, or Severe Exacerbation] @ -no Poses a threat to life or bodily function? @ -Yes patient is becoming hypoxic with any exertion is complete end organ dysfunction - Lab Data Result diagrams: 06/24/23 11:42 06/24/23 11:42 Lab Results 06/24/23 06/24/23 06/24/23 Range/Units 11:42 11:42 11:42 WBC 11.0 H (3.8-10.6) k/uL RBC 5.02 (4.30-5.90) m/uL Hgb 15.2 (13.0-17.5) gm/dL Hct 47.3 (39.0-53.0) % MCV 94.1 (80.0-100.0) fL MCH 30.2 (25.0-35.0) pg MCHC 32.1 (31.0-37.0) g/dL RDW 14.2 (11.5-15.5) % Plt Count 250 (150-450) k/uL MPV 7.7 Neutrophils % 80 % Lymphocytes % 10 % Monocytes % 8 % Eosinophils % 1 % Basophils % 0 % Neutrophils # 8.8 H (1.3-7.7) k/uL Lymphocytes # 1.1 (1.0-4.8) k/uL Monocytes # 0.9 (0-1.0) k/uL Eosinophils # 0.1 (0-0.7) k/uL Basophils # 0.0 (0-0.2) k/uL PT 10.7 (9.0-12.0) sec INR 1.0 (<1.2) APTT 27.9 (22.0-30.0) sec Sodium 138 (137-145) mmol/L Potassium 4.1 (3.5-5.1) mmol/L Chloride 104 (98-107) mmol/L Carbon Dioxide 23 (22-30) mmol/L Anion Gap 11 mmol/L BUN 11 (9-20) mg/dL Creatinine 0.67 (0.66-1.25) mg/dL Est GFR (CKD-EPI)AfAm >90 (>60 ml/min/1.73 sqM) Est GFR (CKD-EPI)NonAf >90 (>60 ml/min/1.73 sqM) Glucose 110 H (74-99) mg/dL Plasma Lactic Acid Ben (0.7-2.0) mmol/L Calcium 9.2 (8.4-10.2) mg/dL Total Bilirubin 0.5 (0.2-1.3) mg/dL AST 37 (17-59) U/L ALT 38 (4-49) U/L Alkaline Phosphatase 78 (38-126) U/L Troponin I (0.000-0.034) ng/mL NT-Pro-B Natriuret Pep 755 pg/mL Total Protein 6.3 (6.3-8.2) g/dL Albumin 3.5 (3.5-5.0) g/dL 06/24/23 06/24/23 Range/Units 11:42 11:42 WBC (3.8-10.6) k/uL RBC (4.30-5.90) m/uL Hgb (13.0-17.5) gm/dL Hct (39.0-53.0) % MCV (80.0-100.0) fL MCH (25.0-35.0) pg MCHC (31.0-37.0) g/dL RDW (11.5-15.5) % Plt Count (150-450) k/uL MPV Neutrophils % % Lymphocytes % % Monocytes % % Eosinophils % % Basophils % % Neutrophils # (1.3-7.7) k/uL Lymphocytes # (1.0-4.8) k/uL Monocytes # (0-1.0) k/uL Eosinophils # (0-0.7) k/uL Basophils # (0-0.2) k/uL PT (9.0-12.0) sec INR (<1.2) APTT (22.0-30.0) sec Sodium (137-145) mmol/L Potassium (3.5-5.1) mmol/L Chloride (98-107) mmol/L Carbon Dioxide (22-30) mmol/L Anion Gap mmol/L BUN (9-20) mg/dL Creatinine (0.66-1.25) mg/dL Est GFR (CKD-EPI)AfAm (>60 ml/min/1.73 sqM) Est GFR (CKD-EPI)NonAf (>60 ml/min/1.73 sqM) Glucose (74-99) mg/dL Plasma Lactic Acid Ben 1.4 (0.7-2.0) mmol/L Calcium (8.4-10.2) mg/dL Total Bilirubin (0.2-1.3) mg/dL AST (17-59) U/L ALT (4-49) U/L Alkaline Phosphatase (38-126) U/L Troponin I 0.015 (0.000-0.034) ng/mL NT-Pro-B Natriuret Pep pg/mL Total Protein (6.3-8.2) g/dL Albumin (3.5-5.0) g/dL Disposition Clinical Impression: Pneumonia, Pulmonary fibrosis Disposition: ADMITTED IP TO THIS HOSP Referrals: Emilia Bob DO [Primary Care Provider] - 1-2 days Time of Disposition: 13:30
--- NOTE | 2023-06-24 12:26 | XR ---
EXAMINATION TYPE: XR chest 2V DATE OF EXAM: 06/24/2023 COMPARISON: 03/31/2022 HISTORY: 72 year-old male shortness of breath, difficulty breathing TECHNIQUE: PA and lateral views FINDINGS: Left anterior chest wall pacemaker generator with right atrial and right ventricular leads. Coronary stent is present. Median sternotomy wires. Heart normal size. Patchy interstitial opacities mid and l ower lungs persist, slightly increased now at the left base. IMPRESSION: Patchy and interstitial infiltrates mid and lower lungs persist, now slightly worsened at the left ba se. Correlate for possible underlying fibrosis with superimposed infiltrate on the left.
[2023-06-24] MEDS ORDERED: cefTRIAXone IN SWFI 1,000 MG/10 ML SYRINGE IVP STA (13:07)
[2023-06-24] MEDS ORDERED: AZITHROMYCIN 500 MG in SODIUM CHLORIDE 0.9% 250 ML IVPB STA (13:31)
[2023-06-24] MEDS ORDERED: PNEUMONIA PROTOCOL UTILIZED 1 EACH MISC PO PRN (13:31)
[2023-06-24] MEDS ORDERED: methylPREDNISolone SOD SUCCI 125 MG/2 ML VIAL IV STA (13:34)
[2023-06-24] MEDS ORDERED: LORATADINE 10 MG TAB PO PRN (16:57)
[2023-06-24] MEDS ORDERED: polyethylene glycoL 3350 17 GM POWD.PACK PO PRN (16:57)
[2023-06-24] MEDS: methylPREDNISolone SOD SUCCI 125 MG/2 ML VIAL IV SCH (18:49)
[2023-06-24] MEDS: PATIENT'S OWN (Nintedanib Esylate [Ofev] 150 MG Capsule) PO SCH (18:49)
[2023-06-24] MEDS: SYMBICORT 160-4.5 MCG INHALER INHALATION SCH (20:08)
[2023-06-24] MEDS ORDERED: ONDANSETRON 4 MG/2 ML VIAL IVP PRN (21:23)
[2023-06-24] MEDS ORDERED: NALOXONE 0.4 MG/ML 1 ML VIAL IV PRN (21:23)
[2023-06-24] MEDS ORDERED: CALCIUM CARBONATE 500 MG CHEWABLE PO PRN (21:23)
--- NOTE | 2023-06-24 21:45 | P.HPIM ---
History of Present Illness H&P Date: 06/24/23 Chief Complaint: Short of breath This is a pleasant 72-year-old, follows with Dr. Emilia Bob. 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 Litigation Manager Dr. Farias. Normally uses 2 L of oxygen at night. Sometimes excessive activity in the daytime. About a week ago patient developed 40 to describe neck: Neck symptoms the runny nose. Subsequently's been noticing that is getting increasingly short of breath example going up the stairs. And oxygen pulse ox dropped down to 70-82%. No cough. No fever no chills. Just tired. Negative self COVID negative test. Patient had 3 bouts of COVID 19 2020. Patient at that time and received BAM. Review of systems: GEN.: Tired EYES: None HEENT: None NECK: None RESPIRATORY: As above CARDIOVASCULAR: None GASTROINTESTINAL: None GENITOURINARY: None MUSCULOSKELETAL: None LYMPHATICS: None HEMATOLOGICAL: None PSYCHIATRY: None NEUROLOGICAL: None Past medical history to include: Atrial fibrillation, CAD, COPD, GERD, hyperlipidemia, hypertension, osteoarthritis, COVID 19, bradycardia with pacemaker, lumbar disc disorder, ventral hernia, pulmonary fibrosis, nocturnal oxygen, CAD with stent and coronary bypass in 2004 Social history: . 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 Smoked for about 48 years since the age of 17 stopped in 2015. Alcohol rarely. Physical examination: VITAL SIGNS: 97.9, 56, 17, 122/54, 93% on room air GENERAL: BMI 22.6, declining bed awake slightly short of breath. EYES: Pupils equal. Conjunctiva normal. HEENT: External appearance of nose and ears normal, oral cavity grossly normal. NECK: JVD not raised; masses not palpable. HEART: First and second heart sounds are normal; no edema. LUNGS: Respiratory rate increased; decreased breath sound some crackles. ABDOMEN: Soft, nontender, liver spleen not palpable, no masses palpable. PSYCH: Alert and oriented x3; mood and affect normal. MUSCULOSKELETAL:No Clubbing/cyanosis;muscles-grossly intact. OA NEUROLOGICAL: Cranial nerves grossly intact; no facial asymmetry, power and sensation grossly intact. LYMPHATICS: No lymph nodes palpable in the axilla and neck INVESTIGATIONS, reviewed in the clinical context: White count 11.0 hemoglobin 15.2 platelets 250 potassium 4.1 BUN 11 creatinine 0.67 ProBNP 755 Troponin I 0.015 Influenza type A, B, RSV, COVID-19 PCR: Noninjected EKG tracing personally reviewed by me-no sinus rhythm. Nonspecific ST-T wave changes. Chest x-ray film personally reviewed by me-hyperinflation. Some basal chronic changes. Pacemaker. Assessment plan: -Acute shortness of breath or loss for 5 days with increasing hypoxia. Patient had cold-like symptoms about a week ago. Finding is started having increasing shortness of breath and hypoxia with activity. Most likely a combination of exacerbation of pulmonary fibrosis and COPD. Cardiac ischemia to be considered. -Acute on chronic hypoxic respiratory failure, multifactorial Oxygen supplement -Acute COPD exacerbation, and a previous smoker DuoNeb. IV Solu-Medrol -Chronic pulmonary fibrosis possibly acute exacerbation of symptoms precipitated by viral infection IV Solu-Medrol -Coronary artery disease prior history of coronary bypass and stent Consult cardiology -Essential hypertension Metoprolol 50 mg twice a day, Zestril 2.5 mg daily at bedtime, Imdur 30 mg a day -Depression otherwise specified Wellbutrin SR 150 mg twice a day -Paroxysmal atrial fibrillation, currently sinus rhythm Xarelto, Lopressor Care was discussed with patient. Questions answered. He has been advised to take the RSV/flu/COVID-19 vaccine. Pulmonary consulted. Past Medical History Past Medical History: Atrial Fibrillation, Coronary Artery Disease (CAD), COPD, GERD/Reflux, Hyperlipidemia, Hypertension, Musculoskeletal Disorder, Osteoarthritis (OA), Pneumonia, Respiratory Disorder Additional Past Medical History / Comment(s): Hx Covid 04/2021 with antibody treatment, Bradycardia with pacemaker, lumbar disc disorder, small hiatal hernia, ventral hernia, hx anemia, hx hemmorrhoids with bleeding, pulmonary fibrosis dx in 2021, home oxygen History of Any Multi-Drug Resistant Organisms: None Reported Past Surgical History: Coronary Bypass/CABG, Heart Catheterization, Heart Catheterization With Stent, Hernia Repair, Orthopedic Surgery, Pacemaker Additional Past Surgical History / Comment(s): Vasectomy, 3 vessel CABG 2004, BILATERAL CATARACT, VASECTOMY, BONE INFUSION MIDDLE LEFT FINGER CRUSHING INJURY, right knee arthroscopy, [employer] pacemaker placed 11/04/16, 3 stents to Circ 12/16/16, ventricular lead replacement 08/21/2018, hematoma evacuation from pacemaker site 08/23/2018. Past Anesthesia/Blood Transfusion Reactions: No Reported Reaction Date of Last Stent Placement:: 12/16/16 Type of Cardiac Device: Permanent Pacemaker Device Placement Date:: 11/04/16 Past Psychological History: No Psychological Hx Reported Additional Psychological History / Comment(s): Pt resides with his spouse. 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 He has a nebulizer. Has oxygen at home. Still drives. Smoking Status: Former smoker Past Alcohol Use History: Rare Additional Past Alcohol Use History / Comment(s): Quit smoking 7--16, smoked since age 17. Past Drug Use History: None Reported - Past Family History Father Family Medical History: Cancer Additional Family Medical History / Comment(s): . Mother Family Medical History: Coronary Artery Disease (CAD) Additional Family Medical History / Comment(s): HEART PROBLEMS. Sister(s) Family Medical History: Cancer Additional Family Medical History / Comment(s): Lymph nodes. Brother(s) Family Medical History: Cancer Medications and Allergies Home Medications Medication Instructions Recorded Confirmed Type Gabapentin [Neurontin] 300 mg PO BID 10/08/14 06/24/23 History Ferrous Sulfate [Iron (65 MG 325 mg PO DAILY 09/03/16 06/24/23 History Elemental)] Clopidogrel [Plavix] 75 mg PO DAILY #90 tab 09/07/16 06/24/23 Rx polyethylene glycoL 3350 [Miralax] 17 gm PO HS PRN 10/30/16 06/24/23 History Acetaminophen Tab [Tylenol] 650 mg PO Q6H PRN 07/19/18 06/24/23 History Albuterol Inhaler [Ventolin Hfa 1 - 2 puff INHALATION RT-QID PRN 07/19/18 06/24/23 History Inhaler] Budesonide/Formoterol Fumarate 2 puff INHALATION RT-BID 07/19/18 06/24/23 History [Symbicort 160-4.5 Mcg Inhaler] Ipratropium-Albuterol Nebulize 3 ml INHALATION RT-QID PRN 07/19/18 06/24/23 History [Duoneb 0.5 mg-3 mg/3 ml Soln] Rivaroxaban [Xarelto] 15 mg PO W/SUPPER 07/19/18 06/24/23 History buPROPion HCL [Wellbutrin SR] 150 mg PO BID 07/19/18 06/24/23 History predniSONE 5 mg PO DAILY 07/19/18 06/24/23 History Pantoprazole Sodium [Protonix] 40 mg PO DAILY 08/19/18 06/24/23 History lisinopriL [Zestril] 2.5 mg PO HS 08/19/18 06/24/23 History Isosorbide Mononitrate ER [Imdur] 30 mg PO DAILY@1200 10/19/18 06/24/23 History Atorvastatin [Lipitor] 40 mg PO HS 11/19/21 06/24/23 History Fluticasone Nasal [place] [Flonase 2 spray EA NOSTRIL DAILY 11/19/21 06/24/23 History Nasal [place]] Metoprolol Tartrate [Lopressor] 50 mg PO BID 11/19/21 06/24/23 History Nitroglycerin Sl Tabs [Nitrostat] 0.4 mg SUBLINGUAL Q5M PRN 11/19/21 06/24/23 History Zinc 50 mg PO DAILY 11/19/21 06/24/23 History Loratadine [Claritin] 10 mg PO DAILY PRN 06/24/23 06/24/23 History Nintedanib Esylate [Ofev] 150 mg PO BID 06/24/23 06/24/23 History Allergies Allergy/AdvReac Type Severity Reaction Status Date / Time ibuprofen [From Motrin IB] AdvReac CANNOT Verified 06/24/23 16:50 TAKE PER CARDIOLIGIST Physical Exam Vitals: Vital Signs Temp Pulse Pulse Resp BP BP Pulse Ox 06/24/23 19:43 97.9 F 56 L 17 122/54 93 L 06/24/23 18:15 56 L 18 116/61 93 L 06/24/23 15:10 51 L 16 128/75 93 L 06/24/23 12:03 58 L 16 150/83 92 L 06/24/23 11:09 98 F 59 L 22 148/67 92 L Intake and Output 06/24/23 06/24/23 06/24/23 06:59 14:59 22:59 Other: Weight 63.503 kg Results CBC & Chem 7: 06/24/23 11:42 06/24/23 11:42 Labs: Abnormal Lab Results - Last 24 Hours (Table) 06/24/23 06/24/23 Range/Units 11:42 11:42 WBC 11.0 H (3.8-10.6) k/uL Neutrophils # 8.8 H (1.3-7.7) k/uL Glucose 110 H (74-99) mg/dL
[2023-06-24] MEDS: GABAPENTIN 300 MG CAP PO SCH (21:50)
[2023-06-24] MEDS: RIVAROXABAN 15 MG TAB PO SCH (21:50)
[2023-06-24] MEDS: METOPROLOL TARTRATE 50 MG TAB PO SCH (21:50)
[2023-06-24] MEDS: buPROPion SR 150 MG TABLET.ER PO SCH (21:50)
[2023-06-24] MEDS: ATORVASTATIN 40 MG TAB PO SCH (21:51)
[2023-06-25] MEDS: methylPREDNISolone SOD SUCCI 125 MG/2 ML VIAL IV SCH ×5 (00:55→23:16)
--- NOTE | 2023-06-25 03:45 | P.CNPUL ---
History of Present Illness Consult date: 06/25/23 Requesting physician: Ras Sellers Reason for consult: COPD, pulmonary fibrosis Chief complaint: Exertional dyspnea History of present illness: I am seeing this patient in new consultation today 06/25/2023 after the patient presented with worsening exertional dyspnea that started approximately 1 week ago. Patient is a 72-year-old white male with past medical history significant for COPD, pulmonary fibrosis, chronic oxygen dependence maintained on 2 L/m nasal cannula at bedtime, atrial fibrillation anticoagulated on Xarelto, coronary artery disease with previous CABG, he does have an implanted permanent pacemaker, hypertension, hyperlipidemia, among other things. Patient does follow in the pulmonary office with Dr. Farias. He does have moderate COPD with an FEV1 69% of predicted. He is chronically oxygen and steroid dependent. He utilizes a combination of Wixela and as needed albuterol. He also has biopsy- proven pulmonary fibrosis, UIP type. He is maintained on Ofev. Patient presented to emergency room yesterday morning complaining of worsening exertional dyspnea. He does have chronic dyspnea related to his pulmonary diseases. He states that his shortness of breath worsens with minimal exertion including walking to the bathroom. While climbing the stairs in his home, he says that his pulse oximeter level dropped to 70% while on supplemental 2 L home O2 yesterday. He does not normally wear his oxygen 14/04, but has been lately. He admits to URI like symptoms approximately 1 week ago. Denies any fevers, chills, myalgias, cough. He does admit severe substernal chest pain last week that resolved with 2 nitroglycerin tabs. He does have a significant cardiac h istory. Denies recent stress test. He denies any current chest pain, heart palpitations, heaviness, syncope, or lower extremities swelling. Patient is currently lying in bed, on 2 L/m nasal cannula, in no acute distress. Chest x- ray redemonstrated his underlying interstitial fibrosis, there is also possible superimposed left lower lobe infiltrate. CBC on arrival showed a WBC count 11, hemoglobin 15.2, hematocrit 47.3, platelets 250. CMP on arrival is unremarkable. Troponin was 0.015. ECG shows normal sinus rhythm without any obvious acute ischemic changes. There are chronic q wave changes in II, III, AVF; right axis deviation. NT proBNP not significantly elevated for age at 89. Procalcitonin level was low at 0.06. Negative for influenza, RSV, COVID-19. Patient was empirically started on azithromycin and Rocephin. Afebrile. Patient is hemodynamically stable. Review of Systems REVIEW OF SYSTEMS: CONSTITUTIONAL: Denies any recent significant weight loss or weight gain. EYES: Denies change in vision. EARS, NOSE, MOUTH, THROAT: Denies headaches, denies sore throat. CARDIOVASCULAR: Denies palpitations, lightheadedness, or syncopal episodes. Denies any significant weight gain or lower extremity swelling. Admits substernal chest pain nonradiating and resolved with nitroglycerin tabs RESPIRATORY: Denies cough, congestion or hemoptysis. Admits exertional dyspnea GASTROINTESTINAL: Denies change in appetite, abdominal pain, nausea and vomiting, or diarrhea GENITOURINARY: Denies hematuria, denies infections. MUSKULOSKELETAL: Denies pain, denies swelling. INTEGUMENTARY: Denies rash, denies eczema. NEUROLOGICAL: Denies recent memory loss, no recent seizure activity. PSYCHIATRIC: Denies anxiety, denies depression. HEMATOLOGIC/LYMPHATIC: Denies anemia, denies enlarged lymph node Past Medical History Past Medical History: Atrial Fibrillation, Coronary Artery Disease (CAD), COPD, GERD/Reflux, Hyperlipidemia, Hypertension, Musculoskeletal Disorder, Osteoarthritis (OA), Pneumonia, Respiratory Disorder Additional Past Medical History / Comment(s): Hx Covid 04/2021 with antibody treatment, Bradycardia with pacemaker, lumbar disc disorder, small hiatal hernia, ventral hernia, hx anemia, hx hemmorrhoids with bleeding, pulmonary fibrosis dx in 2021, home oxygen History of Any Multi-Drug Resistant Organisms: None Reported Past Surgical History: Coronary Bypass/CABG, Heart Catheterization, Heart Catheterization With Stent, Hernia Repair, Orthopedic Surgery, Pacemaker Additional Past Surgical History / Comment(s): Vasectomy, 3 vessel CABG 2004, BILATERAL CATARACT, VASECTOMY, BONE INFUSION MIDDLE LEFT FINGER CRUSHING INJURY, right knee arthroscopy, [employer] pacemaker placed 11/04/16, 3 stents to Circ 12/16/16, ventricular lead replacement 08/21/2018, hematoma evacuation from pacemaker site 08/23/2018. Past Anesthesia/Blood Transfusion Reactions: No Reported Reaction Date of Last Stent Placement:: 12/16/16 Type of Cardiac Device: Permanent Pacemaker Device Placement Date:: 11/04/16 Past Psychological History: No Psychological Hx Reported Additional Psychological History / Comment(s): Pt resides with his spouse. 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 He has a nebulizer. Has oxygen at home. Still drives. Smoking Status: Former smoker Past Alcohol Use History: Rare Additional Past Alcohol Use History / Comment(s): Quit smoking 7-16, smoked since age 17. Past Drug Use History: None Reported - Past Family History Father Family Medical History: Cancer Additional Family Medical History / Comment(s): . Mother Family Medical History: Coronary Artery Disease (CAD) Additional Family Medical History / Comment(s): HEART PROBLEMS. Sister(s) Family Medical History: Cancer Additional Family Medical History / Comment(s): Lymph nodes. Brother(s) Family Medical History: Cancer Medications and Allergies Home Medications Medication Instructions Recorded Confirmed Type Gabapentin [Neurontin] 300 mg PO BID 10/08/14 06/24/23 History Ferrous Sulfate [Iron (65 MG 325 mg PO DAILY 09/03/16 06/24/23 History Elemental)] Clopidogrel [Plavix] 75 mg PO DAILY #90 tab 09/07/16 06/24/23 Rx polyethylene glycoL 3350 [Miralax] 17 gm PO HS PRN 10/30/16 06/24/23 History Acetaminophen Tab [Tylenol] 650 mg PO Q6H PRN 07/19/18 06/24/23 History Albuterol Inhaler [Ventolin Hfa 1 - 2 puff INHALATION RT-QID PRN 07/19/18 06/24/23 History Inhaler] Budesonide/Formoterol Fumarate 2 puff INHALATION RT-BID 07/19/18 06/24/23 History [Symbicort 160-4.5 Mcg Inhaler] Ipratropium-Albuterol Nebulize 3 ml INHALATION RT-QID PRN 07/19/18 06/24/23 History [Duoneb 0.5 mg-3 mg/3 ml Soln] Rivaroxaban [Xarelto] 15 mg PO W/SUPPER 07/19/18 06/24/23 History buPROPion HCL [Wellbutrin SR] 150 mg PO BID 07/19/18 06/24/23 History predniSONE 5 mg PO DAILY 07/19/18 06/24/23 History Pantoprazole Sodium [Protonix] 40 mg PO DAILY 08/19/18 06/24/23 History lisinopriL [Zestril] 2.5 mg PO HS 08/19/18 06/24/23 History Isosorbide Mononitrate ER [Imdur] 30 mg PO DAILY@1200 10/19/18 06/24/23 History Atorvastatin [Lipitor] 40 mg PO HS 11/19/21 06/24/23 History Fluticasone Nasal [place] [Flonase 2 spray EA NOSTRIL DAILY 11/19/21 06/24/23 Hi story Nasal [place]] Metoprolol Tartrate [Lopressor] 50 mg PO BID 11/19/21 06/24/23 History Nitroglycerin Sl Tabs [Nitrostat] 0.4 mg SUBLINGUAL Q5M PRN 11/19/21 06/24/23 History Zinc 50 mg PO DAILY 11/19/21 06/24/23 History Loratadine [Claritin] 10 mg PO DAILY PRN 06/24/23 06/24/23 History Nintedanib Esylate [Ofev] 150 mg PO BID 06/24/23 06/24/23 History Allergies Allergy/AdvReac Type Severity Reaction Status Date / Time ibuprofen [From Motrin IB] AdvReac CANNOT Verified 06/24/23 16:50 TAKE PER CARDIOLIGIST Physical Exam Vitals: Vital Signs Temp Pulse Pulse Resp BP BP Pulse Ox 06/25/23 01:20 97.8 F 57 L 17 127/68 98 06/24/23 20:00 56 L 17 06/24/23 19:43 97.9 F 56 L 17 122/54 93 L 06/24/23 18:15 56 L 18 116/61 93 L 06/24/23 15:10 51 L 16 128/75 93 L 06/24/23 12:03 58 L 16 150/83 92 L 06/24/23 11:09 98 F 59 L 22 148/67 92 L Intake and Output 06/24/23 06/24/23 06/25/23 14:59 22:59 06:59 Other: Weight 63.503 kg GENERAL EXAM: Alert, 72-year-old white male , comfortable in no apparent distress. HEAD: Normocephalic and atraumatic EYES: Normal reaction of pupils, equal size. NOSE: Clear with pink turbinates. THROAT: No erythema or exudates. NECK: No masses, no JVD. CHEST: No chest wall deformity. Old midsternal sternotomy incisional scar LUNGS: Equal air entry with bibasilar inspiratory Velcro crackles. No wheezing, rhonchi, dullness. On 2 L/m nasal cannula. No conversational dyspnea or accessory muscle use.. CVS: S1 and S2 normal with grade 1 systolic ejection murmur, regular rhythm. No other extra heart sounds ABDOMEN: No hepatosplenomegaly, active bowel sounds, no guarding or rigidity. SPINE: No scoliosis or deformity SKIN: No rashes CENTRAL NERVOUS SYSTEM: No focal deficits, tone is normal in all 4 extremities. EXTREMITIES: There is no peripheral edema, clubbing, or cyanosis. Peripheral pulses are intact. Results - Laboratory Findings CBC and BMP: 06/24/23 11:42 06/24/23 11:42 PT/INR, D-dimer PT 10.7 sec (9.0-12.0) 06/24/23 11:42 INR 1.0 (<1.2) 06/24/23 11:42 Abnormal lab findings: Abnormal Labs 06/24/23 06/24/23 11:42 11:42 WBC 11.0 H Neutrophils # 8.8 H Glucose 110 H - Diagnostic Findings Chest x-ray: image reviewed Assessment and Plan Assessment: Exertional dyspnea, possibly related to acute COPD exacerbation, chest x-ray shows mostly chronic fibrotic changes with a possible superimposed left lower lobe infiltrate. Negative for influenza, RSV, COVID-19. Procalcitonin level low. Pneumonia is felt to be less likely Acute on chronic hypoxemic respiratory failure, normally maintained on 2 L/m nasal cannula Biopsy-proven pulmonary fibrosis, UIP type. Maintained on Ofev Chronic obstructive pulmonary disease, chronically oxygen and steroid dependent Paroxysmal atrial fibrillation, chronically anticoagulated on Xarelto Chest pain/angina, resolved with when necessary nitroglycerin tabs. Coronary artery disease, status post previous CABG and subsequent PCI History of implanted permanent pacemaker Essential hypertension Hyperlipidemia Former tobacco smoker Plan: Patient's medications, labs, chest x-ray reviewed Continue supplemental oxygen Procalcitonin level low at 0.06, will discontinue empiric antibiotics Continue bronchodilators, Symbicort inhaler, and IV Solu-Medrol Cardiology was consulted Home medications have been reordered We will continue to follow, and further recommendations are forthcoming I have personally seen and examined the patient, performed the documentation and the assessment and plan as written. Number of minutes spent on the visit:20 There is a joint evaluation that was done along with the nurse practitioner. This evaluation was done in more than 30 minutes. The patient follows up through our office. The patient is known to have COPD and biopsy confirmed IPF. The patient presented to us with worsening shortness of breath and hypoxemia and the patient was having exertional dyspnea and hypoxemia despite being supplemented with oxygen. Chest x-ray is consistent with pulmonary fibrosis. The patient is showing some increased signs of bronchospasm and wheezing. He was also complaining of some chest pain. For now, would optimize COPD and fibrosis with a combination of bronchodilators and steroids. Will continue anticoagulation with Xarelto. We'll consult cardiology regarding the chest pain. Noted the cardiac enzymes were negative and EKG is not showing any acute abnormalities. Labs were reviewed. No significant abnormalities. The viral screen was also negative. 2-D echocardiogram was also ordered. Time with Patient: Greater than 30
--- NOTE | 2023-06-25 07:09 | XR ---
EXAMINATION TYPE: XR chest 2V DATE OF EXAM: 06/25/2023 7:04 AM COMPARISON: Chest radiographs from 06/24/2023 TECHNIQUE: XR chest 2V Frontal and lateral views of the chest. CLINICAL INDICATION:Male, 72 years old with history of pneumonia; FINDINGS: Lungs/Pleura: No pleural effusion or pneumothorax. Multifocal patchy interstitial opacities are redem onstrated within the bilateral mid to lower lungs. Pulmonary vascularity: Unremarkable. Heart/mediastinum: Cardiomediastinal silhouette is unremarkable. Post-CABG changes. Two lead cardiac conduction device overlying the left hemithorax with lead tips projecting over the right ventricle a nd right atrium. Musculoskeletal: No acute osseous pathology. Midline sternotomy wires are noted and stable. IMPRESSION: Overall similar mid to lower lung bilateral interstitial opacities which may represent underlying fib rosis versus infiltrates.
[2023-06-25] MEDS: GABAPENTIN 300 MG CAP PO SCH ×2 (07:46→21:13)
[2023-06-25] MEDS: CLOPIDOGREL 75 MG TAB PO SCH (07:47)
[2023-06-25] MEDS: METOPROLOL TARTRATE 50 MG TAB PO SCH ×2 (07:47→21:13)
[2023-06-25] MEDS: buPROPion SR 150 MG TABLET.ER PO SCH ×2 (07:47→21:13)
[2023-06-25] MEDS: PATIENT'S OWN (Nintedanib Esylate [Ofev] 150 MG Capsule) PO SCH ×2 (07:47→21:16)
[2023-06-25] MEDS: FERROUS SULFATE 325 MG TAB PO SCH (07:47)
[2023-06-25] MEDS: PANTOPRAZOLE 40 MG TABLET PO SCH (07:47)
[2023-06-25] MEDS: SYMBICORT 160-4.5 MCG INHALER INHALATION SCH (08:21)
[2023-06-25] MEDS ORDERED: ISOSORBIDE MONONITRATE ER 30 MG TAB.ER.24H PO SCH (12:00)
--- NOTE | 2023-06-25 13:14 | P.CRDCN ---
History of Present Illness Consult date: 06/25/23 Reason for Consult (text): CAD History of present illness: History of present illness: This is a 72-year-old male patient of Dr. LIDIA Falk with past medical history of coronary artery disease disease with prior bypass surgery and PTCA, paroxysmal atrial fibrillation on Xarelto for anticoagulation, history of sick sinus syndrome with permanent pacemaker, hypertension, hyperlipidemia, COPD, pulmonary fibrosis under the care of Dr. Farias. We have been asked to evaluate the patient for coronary artery disease. Patient states that last week he had cold symptoms such as a sore throat and runny nose. On Friday he started having some difficulty breathing and on Friday he was having more shortness of breath. His states that his pulse ox is usually 94-96% during the day without oxygen but on Friday pulse ox dropped down to 86%. Patient had episode of chest pain and took 2 nitroglycerin that seemed to help. On Friday, patient called Dr. Falk and was told to monitor, follow-up with Dr. Mcdowell. Patient contacted Dr. Farias and if he worsened her continue to have trouble, coming to the emergency center so he did. Patient denies having any chest pain at this time. Patient becomes significantly dyspneic with ambulating to the bathroom with oxygen. He has been seen by pulmonary medicine for pulmonary fibrosis doubt pneumonia. EKG sinus rhythm with a right bundle branch block Chest x-ray: patchy and interstitial infiltrates mid and lower lungs persist, slightly worse on the left base. Correlate for possible underlying fibrosis with superimposed infiltrate on the left. WBC 11, hemoglobin 15.2, platelet count 250. INR 1. Electrolytes and renal function normal. Troponin negative 1. ProBNP 755. Liver function tests are normal. Lactic acid 1.4. Pro-calcitonin 0.06. Influenza A, influenza B, Legionella, RSV, Covid 19 negative. Home cardiac medications: atorvastatin 40 mg at bedtime, Plavix 75 mg daily, Im dur 30 mg daily at noon, lisinopril 2.5 mg at bedtime, Lopressor 50 mg twice daily, Nitrostat as needed, Xarelto 50 mg at supper. 12/09/2021 PCI of the mid circumflex CT oh at [facility] 11/20/2021 PCI unsuccessful to the mid circumflex. No gradient occluded LAD and nondominant RCA port heiden circumflex stented at the ostium proximal portion patent, new lesion in the midportion of chronic total occlusion, ZABALA patent, SVG to OM occluded, SVG to PLF patent. Echocardiogram 12/2022 EF 50%, mild inferior wall hypokinesia, mild diastolic dysfunction. Moderate mitral regurgitation, moderate tricuspid regurgitation, moderate pulmonary hypertension. Review Of Systems: At the time of my evaluation: Constitutional: No fever, no chills. No weakness, fatigue or lethargy. EENT: No headache. No dizziness. Lungs: + shortness of breath, cough, no sputum production. No wheezing. + Dyspnea on exertion Cardiovascular: No chest pain, no lower extremity edema. No palpitations. No paroxysmal nocturnal dyspnea. No orthopnea. No lightheadedness or dizziness. No syncopal episodes. Abdominal: No abdominal pain. No nausea, vomiting. No diarrhea. No constipation. No bloody or tarry stools. Musculoskeletal: No myalgias. No muscle weakness, no frequent falls. Integumentary: No wounds. No rash. No unusual bruising. Neurologic: No aphasia. No facial droop. No change in mentation. Physical examination: Gen: This is a 72-year-old male. He has seen walking from the bath room to his bed, accessory muscle uses, dyspneic with minimal activity with oxygen in place. VS: reviewed HEENT: Head is atraumatic, normocephalic. Pupils equal, round. Sclerae is anicteric. NECK: Supple. No JVD. . LUNGS: Diminished bilaterally No intercostal retractions. HEART: Regular rate and rhythm. No murmur. ABDOMEN: Soft No tenderness. EXTREMITIES: No pedal edema. No calf tenderness. NEUROLOGICAL: Patient is awake, alert and oriented x3. 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 Nurse practitioner note has been reviewed, I agree with documented findings and plan of care. Patient was seen and examined. Past Medical History Past Medical History: Atrial Fibrillation, Coronary Artery Disease (CAD), COPD, GERD/Reflux, Hyperlipidemia, Hypertension, Musculoskeletal Disorder, Osteoarthritis (OA), Pneumonia, Respiratory Disorder Additional Past Medical History / Comment(s): Hx Covid 04/2021 with antibody treatment, Bradycardia with pacemaker, lumbar disc disorder, small hiatal hernia, ventral hernia, hx anemia, hx hemmorrhoids with bleeding, pulmonary fibrosis dx in 2021, home oxygen History of Any Multi-Drug Resistant Organisms: None Reported Past Surgical History: Coronary Bypass/CABG, Heart Catheterization, Heart Catheterization With Stent, Hernia Repair, Orthopedic Surgery, Pacemaker Additional Past Surgical History / Comment(s): Vasectomy, 3 vessel CABG 2004, BILATERAL CATARACT, VASECTOMY, BONE INFUSION MIDDLE LEFT FINGER CRUSHING INJURY, right knee arthroscopy, [employer] pacemaker placed 11/04/16, 3 stents to Circ 12/16/16, ventricular lead replacement 08/21/2018, hematoma evacuation from pacemaker site 08/23/2018. Past Anesthesia/Blood Transfusion Reactions: No Reported Reaction Date of Last Stent Placement:: 12/16/16 Type of Cardiac Device: Permanent Pacemaker Device Placement Date:: 11/04/16 Past Psychological History: No Psychological Hx Reported Additional Psychological History / Comment(s): Pt resides with his spouse. 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 He has a nebulizer. Has oxygen at home. Still drives. Smoking Status: Former smoker Past Alcohol Use History: Rare Additional Past Alcohol Use History / Comment(s): Quit smoking 03-25-16, smoked since age 17. Past Drug Use History: None Reported - Past Family History Father Family Medical History: Cancer Additional Family Medical History / Comment(s): . Mother Family Medical History: Coronary Artery Disease (CAD) Additional Family Medical History / Comment(s): HEART PROBLEMS. Sister(s) Family Medical History: Cancer Additional Family Medical History / Comment(s): Lymph nodes. Brother(s) Family Medical History: Cancer Medications and Allergies Home Medications Medication Instructions Recorded Confirmed Type Gabapentin [Neurontin] 300 mg PO BID 10/08/14 06/24/23 History Ferrous Sulfate [Iron (65 MG 325 mg PO DAILY 09/03/16 06/24/23 History Elemental)] Clopidogrel [Plavix] 75 mg PO DAILY #90 tab 09/07/16 06/24/23 Rx polyethylene glycoL 3350 [Miralax] 17 gm PO HS PRN 10/30/16 06/24/23 History Acetaminophen Tab [Tylenol] 650 mg PO Q6H PRN 07/19/18 06/24/23 History Albuterol Inhaler [Ventolin Hfa 1 - 2 puff INHALATION RT-QID PRN 07/19/18 06/24/23 History Inhaler] Budesonide/Formoterol Fumarate 2 puff INHALATION RT-BID 07/19/18 06/24/23 History [Symbicort 160-4.5 Mcg Inhaler] Ipratropium-Albuterol Nebulize 3 ml INHALATION RT-QID PRN 07/19/18 06/24/23 History [Duoneb 0.5 mg-3 mg/3 ml Soln] Rivaroxaban [Xarelto] 15 mg PO W/SUPPER 07/19/18 06/24/23 History buPROPion HCL [Wellbutrin SR] 150 mg PO BID 07/19/18 06/24/23 History predniSONE 5 mg PO DAILY 07/19/18 06/24/23 History Pantoprazole Sodium [Protonix] 40 mg PO DAILY 08/19/18 06/24/23 History lisinopriL [Zestril] 2.5 mg PO HS 08/19/18 06/24/23 History Isosorbide Mononitrate ER [Imdur] 30 mg PO DAILY@1200 10/19/18 06/24/23 History Atorvastatin [Lipitor] 40 mg PO HS 11/19/21 06/24/23 History Fluticasone Nasal [place] [Flonase 2 spray EA NOSTRIL DAILY 11/19/21 06/24/23 History Nasal [place]] Metoprolol Tartrate [Lopressor] 50 mg PO BID 11/19/21 06/24/23 History Nitroglycerin Sl Tabs [Nitrostat] 0.4 mg SUBLINGUAL Q5M PRN 11/19/21 06/24/23 History Zinc 50 mg PO DAILY 11/19/21 06/24/23 History Loratadine [Claritin] 10 mg PO DAILY PRN 06/24/23 06/24/23 History Nintedanib Esylate [Ofev] 150 mg PO BID 06/24/23 06/24/23 History Allergies Allergy/AdvReac Type Severity Reaction Status Date / Time ibuprofen [From Motrin IB] AdvReac CANNOT Verified 06/24/23 16:50 TAKE PER CARDIOLIGIST Physical Exam Vitals: Vital Signs Temp Pulse Pulse Resp BP BP Pulse Ox 06/25/23 08:22 94 L 06/25/23 07:45 97.8 F 64 18 148/84 93 L 06/25/23 01:20 97.8 F 57 L 17 127/68 98 06/24/23 20:00 56 L 17 06/24/23 19:43 97.9 F 56 L 17 122/54 93 L 06/24/23 18:15 56 L 18 116/61 93 L 06/24/23 15:10 51 L 16 128/75 93 L Intake and Output 06/24/23 06/25/23 06/25/23 22:59 06:59 14:59 Intake Total 240 Output Total 600 Balance -360 Intake: Oral 240 Output: Urine 600 Results 06/24/23 11:42 06/24/23 11:42 Current Medications Generic Name Dose Route Start Last Admin Trade Name Freq PRN Reason Stop Dose Admin Acetaminophen 650 mg 06/24/23 16:57 Acetaminophen Tab 325 Mg Tab PO Q6H PRN Pain Albuterol Sulfate 2.5 mg 06/24/23 13:31 Albuterol Nebulized 2.5 Mg/3 Ml INHALATION RT-Q4H PRN Shortness Of Breath Or Wheezing Albuterol/Ipratropium 3 ml 06/24/23 16:57 Ipratropium-Albuterol 3 Ml Neb INHALATION RT-QID PRN Shortness Of Breath Atorvastatin Calcium 40 mg 06/24/23 21:00 06/24/23 21:51 Atorvastatin 40 Mg Tab PO 40 mg HS RODNEY Administration Budesonide 1 mg 06/25/23 20:00 Budesonide 1 Mg/2 Ml Nebu INHALATION RT-BID RODNEY Bupropion HCl 150 mg 06/24/23 21:00 06/25/23 07:47 Bupropion Sr 150 Mg Tablet.Er PO 150 mg BID RODNEY Administration Calcium Carbonate/Glycine 1,000 mg 06/24/23 21:23 Calcium Carbonate 500 Mg Chewable PO Q4HR PRN Dyspepsia Clopidogrel Bisulfate 75 mg 06/25/23 09:00 06/25/23 07:47 Clopidogrel 75 Mg Tab PO 75 mg DAILY RODNEY Administration Ferrous Sulfate 325 mg 06/25/23 09:00 06/25/23 07:47 Ferrous Sulfate 325 Mg Tab PO 325 mg DAILY RODNEY Administration Formoterol Fumarate 20 mcg 06/25/23 20:00 Formoterol Fumarate 20 Mcg/2 Ml Nebu INHALATION RT-BID RODNEY Gabapentin 300 mg 06/24/23 21:00 06/25/23 07:46 Gabapentin 300 Mg Cap PO 300 mg BID RODNEY Administration Isosorbide Mononitrate 30 mg 06/25/23 12:00 Isosorbide Mononitrate Er 30 Mg Tab.Er.24h PO DAILY@1200 [facility] Lactulose 20 gm 06/24/23 21:23 Lactulose 20 Gm/30 Ml Cup PO DAILY PRN Constipation Lisinopril 2.5 mg 06/24/23 21:00 06/24/23 21:50 Lisinopril 2.5 Mg Tab PO 2.5 mg HS RODNEY Administration Loratadine 10 mg 06/24/23 16:57 Loratadine 10 Mg Tab PO DAILY PRN Allergy Symptoms Lorazepam 0.5 mg 06/24/23 21:23 Lorazepam 0.5 Mg Tab PO Q6HR PRN Anxiety Melatonin 3 mg 06/24/23 21:23 Melatonin 3 Mg Tablet PO HS PRN Insomnia Methylprednisolone Sodium Succinate 60 mg 06/24/23 18:00 06/25/23 04:56 Methylprednisolone Sod Succi 125 Mg/2 Ml Vial IV 60 mg Q6HR [facility] Administration Metoprolol Tartrate 50 mg 06/24/23 21:00 06/25/23 07:47 Metoprolol Tartrate 50 Mg Tab PO 50 mg BID [facility] Administration Miscellaneous Information 1 each 06/24/23 13:31 Pneumonia Protocol Utilized 1 Each Misc PO ONCE PRN Per Protocol Naloxone HCl 0.2 mg 06/24/23 21:23 Naloxone 0.4 Mg/Ml 1 Ml Vial IV Q2M PRN Opioid Reversal Nitroglycerin 0.4 mg 06/24/23 16:57 Nitroglycerin Sl Tabs 0.4 Mg Tab SUBLINGUAL Q5M PRN Chest Pain Patient's Own ( 150 mg 06/24/23 21:00 06/25/23 07:47 Nintedanib Esylate [ PO Not Given Ofev] 150 Mg Capsule BID [facility] ) Ondansetron HCl 4 mg 06/24/23 21:23 Ondansetron 4 Mg/2 Ml Vial IVP Q8HR PRN Nausea And Vomiting Pantoprazole Sodium 40 mg 06/25/23 09:00 06/25/23 07:47 Pantoprazole 40 Mg Tablet PO 40 mg DAILY RODNEY Administration Polyethylene Glycol 17 gm 06/24/23 16:57 Polyethylene Glycol 3350 17 Gm Powd.Pack PO HS PRN Constipation Rivaroxaban 15 mg 06/24/23 17:30 06/24/23 21:50 Rivaroxaban 15 Mg Tab PO 15 mg W/SUPPER RODNEY Administration Protocol Intake and Output 06/24/23 06/25/23 06/25/23 22:59 06:59 14:59 Intake Total 240 Output Total 600 Balance -360 Intake: Oral 240 Output: Urine 600 06/24/23 11:42 06/24/23 11:42
[2023-06-25] MEDS: RANOLAZINE 500 MG TAB.ER.12H PO SCH ×3 (13:43→21:50)
[2023-06-25] MEDS ORDERED: AZITHROMYCIN 500 MG TAB PO SCH (14:00)
--- NOTE | 2023-06-25 18:05 | P.PN ---
Progress Note - Text Progress Note Date: 06/25/23 Chief Complaint: Short of breath This is a pleasant 72-year-old, follows with Dr. Emilia Bob. 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 [employer] Dr. Farias. Normally uses 2 L of oxygen at night. Sometimes excessive activity in the daytime. About a week ago patient developed 40 to describe neck: Neck symptoms the runny nose. Subsequently's been noticing that is getting increasingly short of breath example going up the stairs. And oxygen pulse ox dropped down to 70-82%. No cough. No fever no chills. Just tired. Negative self COVID negative test. Patient had 3 bouts of COVID 2020. Patient at that time and received BAM. June 25: Up in a chair. at the bedside. Did desaturate going to the bathroom. Changed to Perforomist and nebulized steroids. IV steroids to continue. Follow with pulmonary. Discussed. Seen by cardiology. Increased Im dur. Added Ranexa. Active Medications Acetaminophen (Acetaminophen Tab 325 Mg Tab) 650 mg PO Q6H PRN PRN Reason: Pain Albuterol Sulfate (Albuterol Nebulized 2.5 Mg/3 Ml) 2.5 mg INHALATION RT-Q4H PRN PRN Reason: Shortness Of Breath Or Wheezing Albuterol/Ipratropium (Ipratropium-Albuterol 3 Ml Neb) 3 ml INHALATION RT-QID PRN PRN Reason: Shortness Of Breath Atorvastatin Calcium (Atorvastatin 40 Mg Tab) 40 mg PO HS [facility] Last Admin: 06/24/23 21:51 Dose: 40 mg Budesonide (Budesonide 1 Mg/2 Ml Nebu) 1 mg INHALATION RT-BID [facility] Bupropion HCl (Bupropion Sr 150 Mg Tablet.Er) 150 mg PO BID [facility] Last Admin: 06/25/23 07:47 Dose: 150 mg Calcium Carbonate/Glycine (Calcium Carbonate 500 Mg Chewable) 1,000 mg PO Q4HR PRN PRN Reason: Dyspepsia Clopidogrel Bisulfate (Clopidogrel 75 Mg Tab) 75 mg PO DAILY [facility] Last Admin: 06/25/23 07:47 Dose: 75 mg Ferrous Sulfate (Ferrous Sulfate 325 Mg Tab) 325 mg PO DAILY [facility] Last Admin: 06/25/23 07:47 Dose: 325 mg Formoterol Fumarate (Formoterol Fumarate 20 Mcg/2 Ml Nebu) 20 mcg INHALATION RT-BID [facility] Gabapentin (Gabapentin 300 Mg Cap) 300 mg PO BID [facility] Last Admin: 06/25/23 07:46 Dose: 300 mg Isosorbide Mononitrate (Isosorbide Mononitrate Er 60 Mg Tab.Er.24h) 60 mg PO DAILY@1200 [facility] Lactulose (Lactulose 20 Gm/30 Ml Cup) 20 gm PO DAILY PRN PRN Reason: Constipation Lisinopril (Lisinopril 2.5 Mg Tab) 2.5 mg PO HS [facility] Last Admin: 06/24/23 21:50 Dose: 2.5 mg Loratadine (Loratadine 10 Mg Tab) 10 mg PO DAILY PRN PRN Reason: Allergy Symptoms Lorazepam (Lorazepam 0.5 Mg Tab) 0.5 mg PO Q6HR PRN PRN Reason: Anxiety Melatonin (Melatonin 3 Mg Tablet) 3 mg PO HS PRN PRN Reason: Insomnia Methylprednisolone Sodium Succinate (Methylprednisolone Sod Succi 125 Mg/2 Ml Vial) 60 mg IV Q6HR [facility] Last Admin: 06/25/23 13:42 Dose: 60 mg Metoprolol Tartrate (Metoprolol Tartrate 50 Mg Tab) 50 mg PO BID [facility] Last Admin: 06/25/23 07:47 Dose: 50 mg Miscellaneous Information (Pneumonia Protocol Utilized 1 Each Misc) 1 each PO ONCE PRN PRN Reason: Per Protocol Naloxone HCl (Naloxone 0.4 Mg/Ml 1 Ml Vial) 0.2 mg IV Q2M PRN PRN Reason: Opioid Reversal Nitroglycerin (Nitroglycerin Sl Tabs 0.4 Mg Tab) 0.4 mg SUBLINGUAL Q5M PRN PRN Reason: Chest Pain Patient's Own ( Nintedanib Esylate [ Ofev] 150 Mg Capsule ) 150 mg PO BID [facility] Last Admin: 06/25/23 07:47 Dose: Not Given Ondansetron HCl (Ondansetron 4 Mg/2 Ml Vial) 4 mg IVP Q8HR PRN PRN Reason: Nausea And Vomiting Pantoprazole Sodium (Pantoprazole 40 Mg Tablet) 40 mg PO DAILY [facility] Last Admin: 06/25/23 07:47 Dose: 40 mg Polyethylene Glycol (Polyethylene Glycol 3350 17 Gm Powd.Pack) 17 gm PO HS PRN PRN Reason: Constipation Ranolazine (Ranolazine 500 Mg Tab.Er.12h) 500 mg PO Q12HR [facility] Last Admin: 06/25/23 13:43 Dose: 500 mg Rivaroxaban (Rivaroxaban 15 Mg Tab) 15 mg PO W/SUPPER [facility]; Protocol Last Admin: 06/24/23 21:50 Dose: 15 mg Past medical history to include: Atrial fibrillation, CAD, COPD, GERD, hyperlipidemia, hypertension, osteoarthritis, COVID 19, bradycardia with pacemaker, lumbar disc disorder, ventral hernia, pulmonary fibrosis, nocturnal oxygen, CAD with stent and coronary bypass in 2004 Social history: . 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 Smoked for about 48 years since the age of 17 stopped in 2016. Alcohol rarely. Physical examination: VITAL SIGNS: 98.1, 73, 20, 109/67, 94% on 2 L GENERAL: Up in a chair EYES: Pupils equal. Conjunctiva normal. HEENT: External appearance of nose and ears normal, oral cavity grossly normal. NECK: JVD not raised; masses not palpable. HEART: First and second heart sounds are normal; no edema. LUNGS: Respiratory rate increased; decreased breath sound some crackles. ABDOMEN: Soft, nontender, liver spleen not palpable, no masses palpable. PSYCH: Alert and oriented x3; mood and affect normal. MUSCULOSKELETAL:No Clubbing/cyanosis;muscles-grossly intact. OA INVESTIGATIONS, reviewed in the clinical context: Procalcitonin 0.06. Urine Legionella antigen: Negative White count 11.0 hemoglobin 15.2 platelets 250 potassium 4.1 BUN 11 creatinine 0.67 ProBNP 755 Troponin I 0.015 Influenza type A, B, RSV, COVID-19 PCR: Noninjected EKG tracing personally reviewed by me-no sinus rhythm. Nonspecific ST-T wave changes. Chest x-ray film personally reviewed by me-hyperinflation. Some basal chronic changes. Pacemaker. Assessment plan: -Acute shortness of breath or loss for 5 days with increasing hypoxia. Patient had cold-like symptoms about a week ago. Finding is started having increasing shortness of breath and hypoxia with activity. Most likely a combination of exacerbation of pulmonary fibrosis and COPD. Cardiac ischemia to be considered.: Slow to respond -Acute on chronic hypoxic respiratory failure, multifactorial: Slow to respond Oxygen supplement -Acute COPD exacerbation, and a previous smoker: Slow to respond DuoNeb. IV Solu-Medrol -Chronic pulmonary fibrosis possibly acute exacerbation of symptoms precipitated by viral infection IV Solu-Medrol -Coronary artery disease prior history of coronary bypass and stent Consult cardiology Imdur increased to 60 mg a day. Ranexa 5 mg twice daily added. -Essential hypertension Metoprolol 50 mg twice a day, Zestril 2.5 mg daily at bedtime, Imdur 30 mg a day -Depression otherwise specified Wellbutrin SR 150 mg twice a day -Paroxysmal atrial fibrillation, currently sinus rhythm Xarelto, Lopressor Discussed with patient and . Follows with cardiology and pulmonary. Past Medical History Past Medical History: Atrial Fibrillation, Coronary Artery Disease (CAD), COPD, GERD/Reflux, Hyperlipidemia, Hypertension, Musculoskeletal Disorder, Osteoarthritis (OA), Pneumonia, Respiratory Disorder Additional Past Medical History / Comment(s): Hx Covid 04/2021 with antibody treatment, Bradycardia with pacemaker, lumbar disc disorder, small hiatal hernia, ventral hernia, hx anemia, hx hemmorrhoids with bleeding, pulmonary fibrosis dx in 2021, home oxygen History of Any Multi-Drug Resistant Organisms: None Reported Past Surgical History: Coronary Bypass/CABG, Heart Catheterization, Heart Catheterization With Stent, Hernia Repair, Orthopedic Surgery, Pacemaker Additional Past Surgical History / Comment(s): Vasectomy, 3 vessel CABG 2004, BILATERAL CATARACT, VASECTOMY, BONE INFUSION MIDDLE LEFT FINGER CRUSHING INJURY, right knee arthroscopy, [employer] pacemaker placed 11/04/16, 3 stents to Circ 12/16/16, ventricular lead replacement 08/21/2018, hematoma evacuation from pacemaker site 08/23/2018. Past Anesthesia/Blood Transfusion Reactions: No Reported Reaction Date of Last Stent Placement:: 12/16/16 Type of Cardiac Device: Permanent Pacemaker Device Placement Date:: 11/04/16 Past Psychological History: No Psychological Hx Reported Additional Psychological History / Comment(s): Pt resides with his spouse. 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 Has oxygen at home. Still drives. Smoking Status: Former smoker Past Alcohol Use History: Rare Additional Past Alcohol Use History / Comment(s): Quit smoking 716, smoked since age 17. Past Drug Use History: None Reported - Past Family History Father Family Medical History: Cancer Additional Family Medical History / Comment(s): . Mother Family Medical History: Coronary Artery Disease (CAD) Additional Family Medical History / Comment(s): HEART PROBLEMS. Sister(s) Family Medical History: Cancer Additional Family Medical History / Comment(s): Lymph nodes. Brother(s) Family Medical History: Cancer
[2023-06-25] MEDS: RIVAROXABAN 15 MG TAB PO SCH (18:48)
[2023-06-25] MEDS: BUDESONIDE 1 MG/2 ML NEBU INHALATION SCH (20:03)
[2023-06-25] MEDS: FORMOTEROL FUMARATE 20 MCG/2 ML NEBU INHALATION SCH (20:03)
[2023-06-25] MEDS: ATORVASTATIN 40 MG TAB PO SCH (21:12)
[2023-06-26] MEDS: methylPREDNISolone SOD SUCCI 125 MG/2 ML VIAL IV SCH ×3 (05:25→18:30)
[2023-06-26] MEDS: BUDESONIDE 1 MG/2 ML NEBU INHALATION SCH ×2 (07:45→19:47)
[2023-06-26] MEDS: FORMOTEROL FUMARATE 20 MCG/2 ML NEBU INHALATION SCH ×2 (07:45→19:47)
[2023-06-26] MEDS: IPRATROPIUM-ALBUTEROL 3 ML NEB INHALATION PRN ×4 (07:45→19:47)
[2023-06-26] MEDS: METOPROLOL TARTRATE 50 MG TAB PO SCH ×2 (08:11→20:40)
[2023-06-26] MEDS: FERROUS SULFATE 325 MG TAB PO SCH (08:11)
[2023-06-26] MEDS: buPROPion SR 150 MG TABLET.ER PO SCH ×2 (08:11→20:40)
[2023-06-26] MEDS: RANOLAZINE 500 MG TAB.ER.12H PO SCH ×2 (08:11→20:40)
[2023-06-26] MEDS: PANTOPRAZOLE 40 MG TABLET PO SCH (08:11)
[2023-06-26] MEDS: GABAPENTIN 300 MG CAP PO SCH ×2 (08:12→20:40)
[2023-06-26] MEDS: CLOPIDOGREL 75 MG TAB PO SCH (08:12)
[2023-06-26] MEDS: PATIENT'S OWN (Nintedanib Esylate [Ofev] 150 MG Capsule) PO SCH ×2 (08:29→20:39)
--- NOTE | 2023-06-26 11:36 | P.PN ---
Subjective Progress Note Date: 06/26/23 History of present illness: This is a 72-year-old male patient of Dr. LIDIA Falk with past medical history of coronary artery disease disease with prior bypass surgery and PTCA, paroxysmal atrial fibrillation on Xarelto for anticoagulation, history of sick sinus syndrome with permanent pacemaker, hypertension, hyperlipidemia, COPD, pulmonary fibrosis under the care of Dr. Farias. We have been asked to evaluate the patient for coronary artery disease. Patient states that last week he had cold symptoms such as a sore throat and runny nose. On Friday he started having some difficulty breathing and on Friday he was having more shortness of breath. His states that his pulse ox is usually 94-96% during the day without oxygen but on Friday pulse ox dropped down to 86%. Patient had episode of chest pain and took 2 nitroglycerin that seemed to help. On Friday, patient called Dr. Falk and was told to monitor, follow-up with Dr. Mcdowell. Patient contacted Dr. Farias and if he worsened her continue to have trouble, coming to the emergency center so he did. Patient denies having any chest pain at this time. Patient becomes significantly dyspneic with ambulating to the bathroom with oxygen. He has been seen by pulmonary medicine for pulmonary fibrosis doubt pneumonia. EKG sinus rhythm with a right bundle branch block Chest x-ray: patchy and interstitial infiltrates mid and lower lungs persist, slightly worse on the left base. Correlate for possible underlying fibrosis with superimposed infiltrate on the left. WBC 11, hemoglobin 15.2, platelet count 250. INR 1. Electrolytes and renal function normal. Troponin negative 1. ProBNP 755. Liver function tests are normal. Lactic acid 1.4. Pro-calcitonin 0.06. Influenza A, influenza B, Legionella, RSV, Covid 19 negative. Home cardiac medications: atorvastatin 40 mg at bedtime, Plavix 75 mg daily, Imdur 30 mg daily at noon, lisinopril 2.5 mg at bedtime, Lopressor 50 mg twice daily, Nitrostat as needed, Xarelto 50 mg at supper. 12/09/2021 PCI of the mid circumflex CT [facility] at [facility] 11/20/2021 PCI unsuccessful to the mid circumflex. No gradient occluded LAD and nondominant RCA [place] circumflex stented at the ostium proximal portion patent, new lesion in the midportion of chronic total occlusion, ZABALA patent, SVG to OM occluded, SVG to PLF patent. Echocardiogram 12/2022 EF 50%, mild inferior wall hypokinesia, mild diastolic dysfunction. Moderate mitral regurgitation, moderate tricuspid regurgitation, moderate pulmonary hypertension. 06/26 Patient is seen today in follow-up. We increased Imdur 60 mg at noon and added Ranexa yesterday. Patient does state he had some tightness in his chest this morning with deep breathing. He denies having any tightness in his chest with ambulation. Patient did have a drop in his pulse ox on 80% this morning with ambulation. Heart rate is in the 80s and 90s, blood pressure running between 124/70 and 163/84. Physical examination: Gen: This is a 72-year-old male. VS: reviewed HEENT: Head is atraumatic, normocephalic. Pupils equal, round. Sclerae is anicteric. NECK: Supple. No JVD. . LUNGS: Diminished bilaterally No intercostal retractions. HEART: Regular rate and rhythm. No murmur. ABDOMEN: Soft No tenderness. EXTREMITIES: No pedal edema. No calf tenderness. NEUROLOGICAL: Patient is awake, alert and oriented x3. Assessment: Chest pain secondary to hypoxia Acute on chronic hypoxic respiratory failure Coronary artery disease with prior bypass surgery and [employer] Paroxysmal atrial fibrillation History of sick sinus syndrome status post permanent pacemaker Hypertension Hyperlipidemia COPD Pulmonary fibrosis Plan: Continue patient's home cardiac medications Continue increased dose of Imdur 60 mg at noon Continue Ranexa 500 mg twice daily Obtain echocardiogram Further recommendations to follow based upon clinical course Nurse practitioner note has been reviewed, I agree with documented findings and plan of care. Patient was seen and examined. Objective - Vital Signs Vital signs: Vital Signs Temp 97.8 F 06/26/23 06:58 Pulse 92 06/26/23 08:07 Resp 17 06/26/23 06:58 BP 163/84 06/26/23 06:58 Pulse Ox 92 L 06/26/23 06:58 FiO2 Intake & Output 06/25/23 06/26/23 06/26/23 18:59 06:59 18:59 Intake Total 50 240 Balance 50 240 Intake: Intake, IV Titration 50 Amount cefTRIAXone 2 gm In 50 Sodium Chloride 0.9% 50 ml @ 100 mls/hr IVPB Q[facility]HR [facility] Rx#:[id number] Oral 240 Other: Voiding Method Toilet # Voids 1 1 - Labs CBC & Chem 7: 06/24/23 11:42 06/24/23 11:42 Labs: Microbiology - Last 24 Hours (Table) 06/24/23 14:10 Blood Culture - Preliminary Blood 06/24/23 14:10 Blood Culture - Preliminary Blood
[2023-06-26] MEDS: ISOSORBIDE MONONITRATE ER 60 MG TAB.ER.24H PO SCH (13:00)
--- NOTE | 2023-06-26 16:41 | P.PN ---
Subjective Progress Note Date: 06/26/23 I am seeing this patient in new consultation today 06/25/2023 after the patient presented with worsening exertional dyspnea that started approximately 1 week ago. Patient is a 72-year-old white male with past medical history significant for COPD, pulmonary fibrosis, chronic oxygen dependence maintained on 2 L/m nasal cannula at bedtime, atrial fibrillation anticoagulated on Xarelto, coronary artery disease with previous CABG, he does have an implanted permanent pacemaker, hypertension, hyperlipidemia, among other things. Patient does follow in the pulmonary office with Dr. Farias. He does have moderate COPD with an FEV1 69% of predicted. He is chronically oxygen and steroid dependent. He utilizes a combination of Wixela and as needed albuterol. He also has biopsy- proven pulmonary fibrosis, UIP type. He is maintained on Ofev. Patient presented to emergency room yesterday morning complaining of worsening exertional dyspnea. He does have chronic dyspnea related to his pulmonary diseases. He states that his shortness of breath worsens with minimal exertion including walking to the bathroom. While climbing the stairs in his home, he says that his pulse oximeter level dropped to 70% while on supplemental 2 L home O2 yesterday. He does not normally wear his oxygen 14/04, but has been lately. He admits to URI like symptoms approximately 1 week ago. Denies any fevers, chills, myalgias, cough. He does admit severe substernal chest pain last week that resolved with 2 nitroglycerin tabs. He does have a significant cardiac history. Denies recent stress test. He denies any current chest pain, heart palpitations, heaviness, syncope, or lower extremities swelling. Patient is currently lying in bed, on 2 L/m nasal cannula, in no acute distress. Chest x- ray redemonstrated his underlying interstitial fibrosis, there is also possible superimposed left lower lobe infiltrate. CBC on arrival showed a WBC count 11, hemoglobin 15.2, hematocrit 47.3, platelets 250. CMP on arrival is unremarkable. Troponin was 0.015. ECG shows normal sinus rhythm without any obvious acute ischemic changes. There are chronic q wave changes in II, III, AVF; right axis deviation. NT proBNP not significantly elevated for age at 755. Procalcitonin level was low at 0.06. Negative for influenza, RSV, COVID-19. Patient was empirically started on azithromycin and Rocephin. Afebrile. Patient is hemodynamically stable. On today's evaluation of 06/26/2023, the patient continues to be short of breath although slightly improved compared to yesterday. Nevertheless, the patient is still having exertional hypoxemia. The patient is on a pulse ox is around 87%. The patient is currently on 2 L of oxygen by nasal cannula. No new complaints otherwise for now. Remains on bronchodilators. Remains on steroids. The patient's pro-calcitonin level is at 0.06. Troponins are negative. No altered mentation. No pleurisy. No hemoptysis. No edema in lower extremities. No chest pain at this point in time. Overall condition is stable. Objective - Vital Signs Vital signs: Vital Signs Temp 98.1 F 06/26/23 14:15 Pulse 72 06/26/23 15:51 Resp 15 06/26/23 14:15 BP 136/74 06/26/23 14:15 Pulse Ox 92 L 06/26/23 14:15 FiO2 Intake & Output 06/25/23 06/26/23 06/26/23 18:59 06:59 18:59 Intake Total 50 240 Balance 50 240 Intake: Intake, IV Titration 50 Amount cefTRIAXone 2 gm In 50 Sodium Chloride 0.9% 50 ml @ 100 mls/hr IVPB Q24HR [facility] Rx#:[id number] Oral 240 Other: Voiding Method Toilet # Voids 1 1 - Exam GENERAL EXAM: Alert, 72-year-old white male , comfortable in no apparent distress. HEAD: Normocephalic and atraumatic EYES: Normal reaction of pupils, equal size. NOSE: Clear with pink turbinates. THROAT: No erythema or exudates. NECK: No masses, no JVD. CHEST: No chest wall deformity. Old midsternal sternotomy incisional scar LUNGS: Equal air entry with bibasilar inspiratory Velcro crackles. No wheezing, rhonchi, dullness. On 2 L/m nasal cannula. No conversational dyspnea or accessory muscle use.. CVS: S1 and S2 normal with grade 1 systolic ejection murmur, regular rhythm. No other extra heart sounds ABDOMEN: No hepatosplenomegaly, active bowel sounds, no guarding or rigidity. SPINE: No scoliosis or deformity SKIN: No rashes CENTRAL NERVOUS SYSTEM: No focal deficits, tone is normal in all 4 extremities. EXTREMITIES: There is no peripheral edema, clubbing, or cyanosis. Peripheral pulses are intact. - Labs CBC & Chem 7: 06/24/23 11:42 06/24/23 11:42 Labs: Microbiology - Last 24 Hours (Table) 06/24/23 14:10 Blood Culture - Preliminary Blood 06/24/23 14:10 Blood Culture - Preliminary Blood Assessment and Plan Assessment: Acute on chronic shortness of breath related to COPD/pulmonary fibrosis exacerbation. Acute on chronic hypoxic respiratory failure currently on 2 L of oxygen by nasal cannula. The patient continues to experience exertional hypoxemia Exertional dyspnea, possibly related to acute COPD exacerbation, chest x-ray shows mostly chronic fibrotic changes with a possible superimposed left lower lobe infiltrate. Negative for influenza, RSV, COVID-19. Procalcitonin level low. Pneumonia is felt to be less likely Acute on chronic hypoxemic respiratory failure, normally maintained on 2 L/m nasal cannula Biopsy-proven pulmonary fibrosis, UIP type. Maintained on Ofev Chronic obstructive pulmonary disease, chronically oxygen and steroid dependent Paroxysmal atrial fibrillation, chronically anticoagulated on Xarelto Chest pain/angina, resolved with when necessary nitroglycerin tabs. Coronary artery disease, status post previous CABG and subsequent PCI History of implanted permanent pacemaker Essential hypertension Hyperlipidemia Former tobacco smoker Plan: Continue same treatment The patient is known to have COPD and biopsy confirmed IPF. The patient presented to us with worsening shortness of breath and hypoxemia and the patient was having exertional dyspnea and hypoxemia despite being supplemented with oxygen. Chest x-ray is consistent with pulmonary fibrosis. We will add empiric antibiotic coverage with Zithromax 500 mg by mouth daily Will continue anticoagulation with Xarelto. Cardiology input is appreciated We'll continue to follow
--- NOTE | 2023-06-26 17:39 | CA ---
Transthoracic Echo Report Name: Jey Kingsley Age: 72 Gender: M : 1950 Exam Date: 06/26/2023 14:22 Exam Location: [facility] Ht (in): 66 Wt (lb): 140 Ordering Physician: Argelia Metcalf Attending/Referring Phys: [id number], [place] Cardiac/Vascular Sonographer Valeria Arceo [facility] Procedure CPT: Indications: LVF Cardiac Hx: Technical Quality: Fair Contrast 1: Total Dose (mL): Contrast 2: Total Dose (mL): MEASUREMENTS (Male / Female) Normal Values 2D ECHO LV Diastolic Diameter PLAX 4.9 cm 4.2 - 5.9 / 3.9 - 5.3 cm LV Systolic Diameter PLAX 3.8 cm IVS Diastolic Thickness 1.1 cm 0.6 - 1.0 / 0.6 - 0.9 cm LVPW Diastolic Thickness 0.9 cm 0.6 - 1.0 / 0.6 - 0.9 cm LV Relative Wall Thickness 0.4 LVOT Diameter 2.0 cm Ascending Aorta Diameter 3.1 cm M-MODE Aortic Root Diameter MM 2.8 cm LA Systolic Diameter MM 5.0 cm LA Ao Ratio MM 1.8 AV Cusp Separation MM 1.6 cm DOPPLER AV Peak Velocity 154.0 cm/s AV Peak Gradient 9.5 mmHg AV Mean Velocity 115.2 cm/s AV Mean Gradient 5.8 mmHg AV Velocity Time Integral 37.7 cm LVOT Peak Velocity 94.8 cm/s LVOT Peak Gradient 3.6 mmHg LVOT Velocity Time Integral 24.8 cm LVOT Stroke Volume 78.3 cm??? LVOT Stroke Volume Index 45.6 ml/m??? LVOT Cardiac Index 2818.6 cm???/min???m??? AV Area Cont Eq vti 2.1 cm??? AV Area Cont Eq pk 1.9 cm??? Mitral E Point Velocity 64.3 cm/s Mitral A Point Velocity 67.5 cm/s Mitral E to A Ratio 1.0 MV Deceleration Time 157.8 ms LV E' Lateral Velocity 9.8 cm/s Mitral E to LV E' Lateral Ratio 6.5 LV E' Septal Velocity 8.2 cm/s Mitral E to LV E' Septal Ratio 7.8 TR Peak Velocity 310.6 cm/s TR Peak Gradient 38.6 mmHg Right Atrial Pressure 8.0 mmHg Pulmonary Artery Systolic Pressu 46.6 mmHg Right Ventricular Systolic Press 46.6 mmHg FINDINGS Left Ventricle Mildly increased septal wall thickness. Left ventricular cavity size normal. Hypokinetic basal inferior wall. Hypokinetic mid-basal inferoseptum. Low Normal left ventricular systolic function. Left ventricular ejection fraction is estimated at 50-55%. Right Ventricle Mild right ventricular dilatation. Catheter/pacemaker wire in the right ventricular cavity. Moderate pulmonary hypertension. Right Atrium No right atrial thrombus or mass seen. Left Atrium Mild left atrial dilatation. Mitral Valve Mitral valve thickened. [id number] mitral regurgitation. Aortic Valve Thickened of the aortic valve cusps with reduced excursion. Aortic valve sclerosis. No aortic regurgitation. Tricuspid Valve Structurally normal tricuspid valve. Mild tricuspid regurgitation. Pulmonic Valve Structurally normal pulmonic valve. [id number] pulmonic regurgitation. Pericardium No pericardial effusion. Aorta Normal size aortic root and proximal ascending aorta. CONCLUSIONS Normal LV systolic function Hypokinesis of the inferior wall suggestive of prior myocardial infarction Mild to moderate mitral regurgitation Previewed by: Dr. Rey Alvraez MD (Electronically Signed) Final Date: 26 June 2023 17:38
[2023-06-26] MEDS: RIVAROXABAN 15 MG TAB PO SCH (18:29)
[2023-06-26] MEDS: LACTULOSE 20 GM/30 ML CUP PO PRN (18:29)
[2023-06-26] MEDS: AZITHROMYCIN 500 MG TAB PO SCH (18:29)
[2023-06-26] MEDS: ATORVASTATIN 40 MG TAB PO SCH (20:40)
[2023-06-27] MEDS: methylPREDNISolone SOD SUCCI 125 MG/2 ML VIAL IV SCH ×4 (00:13→18:05)
--- NOTE | 2023-06-27 05:02 | P.PN ---
Subjective Progress Note Date: 06/26/23 This is a pleasant 72-year-old, follows with Dr. Emilia Bob. 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 [address] [facility] Dr. Farias. Normally uses 2 L of oxygen at night. Sometimes excessive activity in the daytime. About a week ago patient developed 40 to describe neck: Neck symptoms the runny nose. Subse quently's been noticing that is getting increasingly short of breath example going up the stairs. And oxygen pulse ox dropped down to 70-82%. No cough. No fever no chills. Just tired. Negative self COVID negative test. Patient had 3 bouts of COVID 2020. Patient at that time and received BAM. June 25: Up in a chair. at the bedside. Did desaturate going to the bathroom. Changed to Perforomist and nebulized steroids. IV steroids to continue. Follow with pulmonary. Discussed. Seen by cardiology. Increased Imdur. Added Ranexa. 06/26/2023 Patient is seen in follow-up today with cardiology and pulmonary following. Cardiology has evaluated the patient continuing current medication regimen and his worker 2-D echo which is pending. Pulmonary following this patient has h istory of pulmonary fibrosis along the COPD. Patient continues to be dyspneic with minimal exertion and oxygen saturations are dropping while on oxygen. Patient chronically wears 2 L outpatient although requiring 4 L continuously at this time. Will obtain repeat home oxygen testing this patient will likely require 4 L continuous on discharge. Patient denies chest pain or palpitations at this time. Patient is tolerating diet with no reported nausea or vomiting. Family is concerned for taking him home if he continues to be hypoxic and recovering slowly. Empiric antibiotics being added per pulmonary. Review of systems: Constitutional: No reports of fatigue, fever, or chills Cardiovascular: No reports of chest pain or palpitations Respiratory: reports of shortness of breath and chronic cough GI: No reports of nausea, vomiting, or diarrhea : No reports of dysuria or retention Neurovascular: No reports of weakness or numbness All medications have been reviewed Physical examination: GENERAL: Up in a chair, awake, alert and oriented 3 on the thin built, elderly appearing EYES: Pupils equal. Conjunctiva normal. HEENT: External appearance of nose and ears normal, oral cavity grossly normal. NECK: JVD not raised; masses not palpable. HEART: S1, S2 are muffled LUNGS: Respiratory rate increased; decreased breath sound bilaterally with some crackles and coarse rhonchi noted. ABDOMEN: Soft, nontender, normal bowel sounds noted PSYCH: Alert and oriented x3; mood and affect normal. MUSCULOSKELETAL:No Clubbing/cyanosis;muscles-grossly intact. OA Assessment: -Acute shortness of breath with increasing hypoxia, multifactorial secondary to COPD exacerbation as well as pulmonary fibrosis -Acute on chronic hypoxic respiratory failure, secondary to above. Chronically wears 2 L outpatient -Acute COPD exacerbation, and a previous smoker -Chronic pulmonary fibrosis possibly acute exacerbation of symptoms precipitated by viral infection -Coronary artery disease prior history of coronary bypass and stent -Essential hypertension -Depression history -Paroxysmal atrial fibrillation, currently sinus rhythm -GI prophylaxis -DVT prophylaxis -Full code Plan: Patient is continued on breathing inhalational treatments along with steroids with significant history of COPD along with pulmonary fibrosis. Patient continues to be hypoxic and descending into the 70s with exertion. Patient chronically wears 2 L outpatient and is requiring 4 L and will likely have repeat home O2 evaluation is patient is requiring more oxygen Pulmonary following continuing current regimen and adding empiric antibiotics as patient did have some cold-like symptoms 1 week prior with nasal congestion and increased cough Cardiology evaluating the adjustments to medications and has ordered 2-D echo which is pending Encouraged increased activity as tolerated Awaiting pulmonary and cardiology clearance for possible discharge planning in the next 24-48 hours Due to multiple complex medical issues, prognosis is guarded The impression and plan of care has been dictated by Snadra Quiroz, Nurse Practitioner as directed. MD Ida I have performed a history and examination and MDM of this patient, discussed the same with the dictator, and agree with the dictator's assessment and plan as written ,documented as a scribe. Based on total visit time, I have performed more than 50% of the visit. Objective - Vital Signs Vital signs: Vital Signs Temp 97.8 F 06/26/23 06:58 Pulse 92 06/26/23 08:07 Resp 17 06/26/23 06:58 BP 163/84 06/26/23 06:58 Pulse Ox 92 L 06/26/23 06:58 FiO2 Intake & Output 06/25/23 06/26/23 06/26/23 18:59 06:59 18:59 Intake Total 50 240 Balance 50 240 Intake: Intake, IV Titration 50 Amount cefTRIAXone 2 gm In 50 Sodium Chloride 0.9% 50 ml @ 100 mls/hr IVPB Q[facility]HR [facility] Rx#:[id number] Oral 240 Other: Voiding Method Toilet # Voids 1 1 - Labs CBC & Chem 7: 06/24/23 11:42 06/24/23 11:42 Labs: Microbiology - Last 24 Hours (Table) 06/24/23 14:10 Blood Culture - Preliminary Blood 06/24/23 14:10 Blood Culture - Preliminary Blood
[2023-06-27] MEDS: IPRATROPIUM-ALBUTEROL 3 ML NEB INHALATION PRN ×4 (08:58→19:31)
[2023-06-27] MEDS: BUDESONIDE 1 MG/2 ML NEBU INHALATION SCH ×2 (08:58→19:31)
[2023-06-27] MEDS: FORMOTEROL FUMARATE 20 MCG/2 ML NEBU INHALATION SCH ×2 (08:58→19:31)
--- NOTE | 2023-06-27 10:00 | P.PN ---
Subjective Progress Note Date: 06/27/23 History of present illness: This is a 72-year-old male patient of Dr. LIDIA Falk with past medical history of coronary artery disease disease with prior bypass surgery and PTCA, paroxysmal atrial fibrillation on Xarelto for anticoagulation, history of sick sinus syndrome with permanent pacemaker, hypertension, hyperlipidemia, COPD, pulmonary fibrosis under the care of Dr. Farias. We have been asked to evaluate the patient for coronary artery disease. Patient states that last week he had cold symptoms such as a sore throat and runny nose. On Friday he started having some difficulty breathing and on Friday he was having more shortness of breath. His states that his pulse ox is usually 94-96% during the day without oxygen but on Friday pulse ox dropped down to 86%. Patient had episode of chest pain and took 2 nitroglycerin that seemed to help. On Friday, patient called Dr. Falk and was told to monitor, follow-up with Dr. Mcdowell. Patient contacted Dr. Farias and if he worsened her continue to have trouble, coming to the emergency center so he did. Patient denies having any chest pain at this time. Patient becomes significantly dyspneic with ambulating to the bathroom with oxygen. He has been seen by pulmonary medicine for pulmonary fibrosis doubt pneumonia. EKG sinus rhythm with a right bundle branch block Chest x-ray: patchy and interstitial infiltrates mid and lower lungs persist, slightly worse on the left base. Correlate for possible underlying fibrosis with superimposed infiltrate on the left. WBC 11, hemoglobin 15.2, platelet count 250. INR 1. Electrolytes and renal function normal. Troponin negative 1. ProBNP 755. Liver function tests are normal. Lactic acid 1.4. Pro-calcitonin 0.06. Influenza A, influenza B, Legionella, RSV, Covid 19 negative. Home cardiac medications: atorvastatin 40 mg at bedtime, Plavix 75 mg daily, Imdur 30 mg daily at noon, lisinopril 2.5 mg at bedtime, Lopressor 50 mg twice daily, Nitrostat as needed, Xarelto 50 mg at supper. 12/09/2021 PCI of the mid circumflex CT [facility] at [facility] 11/20/2021 PCI unsuccessful to the mid circumflex. No gradient occluded LAD and nondominant RCA morongo circumflex stented at the ostium proximal portion patent, new lesion in the midportion of chronic total occlusion, ZABALA patent, SVG to OM occluded, SVG to PLF patent. Echocardiogram 12/2022 EF 50%, mild inferior wall hypokinesia, mild diastolic dysfunction. Moderate mitral regurgitation, moderate tricuspid regurgitation, moderate pulmonary hypertension. 06/26 Patient is seen today in follow-up. We increased Imdur 60 mg at noon and added Ranexa yesterday. Patient does state he had some tightness in his chest this morning with deep breathing. He denies having any tightness in his chest with ambulation. Patient did have a drop in his pulse ox on 80% this morning with ambulation. Heart rate is in the 80s and 90s, blood pressure running between 124/70 and 163/84. 06/27 Patient states that his reading is seeming to get better. He denies having any chest pain. He feels that he is ready to go home. He is currently on O2 at 2 L nasal cannula with pulse ox 93%, he's been afebrile, heart rate in the 60s, blood pressure 156/62. Echocardiogram reveals normal LV systolic function. Hypokinesis of the inferior wall suggestive prior [place]. Mild to moderate mitral regurgitation. Physical examination: Gen: This is a 72-year-old male. VS: reviewed HEENT: Head is atraumatic, normocephalic. Pupils equal, round. Sclerae is anicteric. LUNGS: Diminished bilaterally No intercostal retractions. HEART: Regular rate and rhythm. No murmur. ABDOMEN: Soft No tenderness. EXTREMITIES: No pedal edema. No calf tenderness. NEUROLOGICAL: Patient is awake, alert and oriented x3. Assessment: Chest pain secondary to hypoxia Acute on chronic hypoxic respiratory failure Coronary artery disease with prior bypass surgery and [employer] Paroxysmal atrial fibrillation History of sick sinus syndrome status post permanent pacemaker Hypertension Hyperlipidemia COPD Pulmonary fibrosis Plan: Continue patient's home cardiac medications Continue increased dose of Imdur 60 mg at noon Continue Ranexa 500 mg twice daily Patient is cleared for discharge home and may follow-up in the office with Dr. LIDIA Falk in one to 2 weeks. Nurse practitioner note has been reviewed, I agree with documented findings and plan of care. Patient was seen and examined. Objective - Vital Signs Vital signs: Vital Signs Temp 97.5 F L 06/27/23 07:43 Pulse 67 06/27/23 07:43 Resp 18 10/06/23 07:43 BP 156/62 06/27/23 07:43 Pulse Ox 93 L 06/27/23 07:43 FiO2 Intake & Output 06/26/23 06/27/23 06/27/23 18:59 06:59 18:59 Intake Total 500 Balance 500 Intake: Oral 500 Other: Voiding Method Toilet # Voids 1 2 - Labs CBC & Chem 7: 06/24/23 11:42 06/24/23 11:42 Labs: Microbiology - Last 24 Hours (Table) 06/24/23 14:10 Blood Culture - Preliminary Blood 06/24/23 14:10 Blood Culture - Preliminary Blood
[2023-06-27] MEDS: buPROPion SR 150 MG TABLET.ER PO SCH ×2 (10:07→21:10)
[2023-06-27] MEDS: METOPROLOL TARTRATE 50 MG TAB PO SCH ×2 (10:08→21:10)
[2023-06-27] MEDS: CLOPIDOGREL 75 MG TAB PO SCH (10:08)
[2023-06-27] MEDS: RANOLAZINE 500 MG TAB.ER.12H PO SCH ×2 (10:08→21:10)
[2023-06-27] MEDS: GABAPENTIN 300 MG CAP PO SCH ×2 (10:08→21:10)
[2023-06-27] MEDS: FERROUS SULFATE 325 MG TAB PO SCH (10:08)
[2023-06-27] MEDS: PANTOPRAZOLE 40 MG TABLET PO SCH (10:08)
[2023-06-27] MEDS: PATIENT'S OWN (Nintedanib Esylate [Ofev] 150 MG Capsule) PO SCH ×2 (10:09→21:11)
[2023-06-27 11:07] LABS: HCT 44.3 % (39.6-50.0); HGB 14.1 d/dL (13.0-17.0); MCH 29.3 pg (27.0-32.0); MCHC 31.8 d/dL (32.0-37.0); MCV 91.9 FL (80.0-97.0); Mean Platelet Volume 9.6 FL (9.5-12.2); NRBC Per 100 WBC 0 X 10*3/uL (0.00-0.01); Platelet Count 332 X 10*3/uL (140-440); RBC 4.82 X 10*6/uL (4.40-5.60); RDW 14.8 % (11.5-14.5); WBC 29.39 X 10*3/uL (4.50-10.00)
[2023-06-27 11:50] LABS: Basophils # (A) 0.04 X 10*3/uL (0.00-0.10); Basophils % (A) 0.1 %; Eosinophils # (A) 0 X 10*3/uL (0.04-0.35); Eosinophils % (A) 0 %; Lymphocytes % (A) 3.4 %; Monocytes # (A) 1.12 X 10*3/uL (0.20-1.00); Monocytes % (A) 3.8 %; Neutrophils # (A) 26.87 X 10*3/uL (1.80-7.70); Neutrophils % (A) 91.5 %; RBC Morphology Normal (Normal)
[2023-06-27 14:07] LABS: BUN/Creat Ratio 20.89 Ratio (12.00-20.00); Blood Urea Nitrogen 18.8 mg/dL (9.0-27.0); Calcium 9.5 mg/dL (8.7-10.3); Carbon Dioxide 27.9 mmol/L (21.6-31.8); Chloride 100 mmol/L (96-109); Glucose 104 mg/dL (70-110); Potassium 4.6 mmol/L (3.5-5.5); Sodium 138 mmol/L (135-145)
--- NOTE | 2023-06-27 14:35 | P.PN ---
Subjective Progress Note Date: 06/27/23 I am seeing this patient in new consultation today 06/25/2023 after the patient presented with worsening exertional dyspnea that started approximately 1 week ago. Patient is a 72-year-old white male with past medical history significant for COPD, pulmonary fibrosis, chronic oxygen dependence maintained on 2 L/m nasal cannula at bedtime, atrial fibrillation anticoagulated on Xarelto, coronary artery disease with previous CABG, he does have an implanted permanent pacemaker, hypertension, hyperlipidemia, among other things. Patient does follow in the pulmonary office with Dr. Farias. He does have moderate COPD with an FEV1 69% of predicted. He is chronically oxygen and steroid dependent. He utilizes a combination of Wixela and as needed albuterol. He also has biopsy- proven pulmonary fibrosis, UIP type. He is maintained on Ofev. Patient presented to emergency room yesterday morning complaining of worsening exertional dyspnea. He does have chronic dyspnea related to his pulmonary diseases. He states that his shortness of breath worsens with minimal exertion including walking to the bathroom. While climbing the stairs in his home, he says that his pulse oximeter level dropped to 70% while on supplemental 2 L home O2 yesterday. He does not normally wear his oxygen 14/04, but has been lately. He admits to URI like symptoms approximately 1 week ago. Denies any fevers, chills, myalgias, cough. He does admit severe substernal chest pain last week that resolved with 2 nitroglycerin tabs. He does have a significant cardiac history. Denies recent stress test. He denies any current chest pain, heart palpitations, heaviness, syncope, or lower extremities swelling. Patient is currently lying in bed, on 2 L/m nasal cannula, in no acute distress. Chest x- ray redemonstrated his underlying interstitial fibrosis, there is also possible superimposed left lower lobe infiltrate. CBC on arrival showed a WBC count 11, hemoglobin 15.2, hematocrit 47.3, platelets 250. CMP on arrival is unremarkable. Troponin was 0.015. ECG shows normal sinus rhythm without any obvious acute ischemic changes. There are chronic q wave changes in II, III, AVF; right axis deviation. NT proBNP not significantly elevated for age at 755. Procalcitonin level was low at 0.06. Negative for influenza, RSV, COVID-19. Patient was empirically started on azithromycin and Rocephin. Afebrile. Patient is hemodynamically stable. On today's evaluation of 06/26/2023, the patient continues to be short of breath although slightly improved compared to yesterday. Nevertheless, the patient is still having exertional hypoxemia. The patient is on a pulse ox is around 87%. The patient is currently on 2 L of oxygen by nasal cannula. No new complaints otherwise for now. Remains on bronchodilators. Remains on steroids. The patient's pro-calcitonin level is at 0.06. Troponins are negative. No altered mentation. No pleurisy. No hemoptysis. No edema in lower extremities. No chest pain at this point in time. Overall condition is stable. On today's evaluation of 06/27/2023 the patient is still having difficulties in breathing and some exertional hypoxemia. Pulse ox is dropping down to the low 80s while him being on 2 L of Oxymizer nasal cannula and this is unusual for the patient. He does recover with rest. Echocardiogram showed some segmental wall motion of the mouth is related to her previous [place]. Left ejection fraction is well-preserved. The patient remains on bronchodilators. The patient remains on steroids. Zithromax was also added was added as an empiric antibiotic coverage. White cell count is higher at 29. D-dimer is at 0.24. Hemoglobin is at 14. BUN is at 80 with a creatinine of 0.5 and sodium level is at 138. Objective - Vital Signs Vital signs: Vital Signs Temp 97.5 F L 06/27/23 07:43 Pulse 67 06/27/23 10:30 Resp 20 06/27/23 09:28 BP 148/77 06/27/23 10:30 Pulse Ox 93 L 06/27/23 07:43 FiO2 Intake & Output 06/26/23 06/27/23 06/27/23 18:59 06:59 18:59 Intake Total 500 Balance 500 Intake: Oral 500 Other: Voiding Method Toilet Toilet # Voids 1 2 - Exam GENERAL EXAM: Alert, 72-year-old white male , comfortable in no apparent distress. The patient remains on 3 L of oxygen by nasal cannula with a pulse ox of 97% at rest, afebrile HEAD: Normocephalic and atraumatic EYES: Normal reaction of pupils, equal size. NOSE: Clear with pink turbinates. THROAT: No erythema or exudates. NECK: No masses, no JVD. CHEST: No chest wall deformity. Old midsternal sternotomy incisional scar LUNGS: Equal air entry with bibasilar inspiratory Velcro crackles. No wheezing, rhonchi, dullness. No conversational dyspnea or accessory muscle use.. CVS: S1 and S2 normal with grade 1 systolic ejection murmur, regular rhythm. No other extra heart sounds ABDOMEN: No hepatosplenomegaly, active bowel sounds, no guarding or rigidity. SPINE: No scoliosis or deformity SKIN: No rashes CENTRAL NERVOUS SYSTEM: No focal deficits, tone is normal in all 4 extremities. EXTREMITIES: There is no peripheral edema, clubbing, or cyanosis. Peripheral pulses are intact. - Labs CBC & Chem 7: 06/27/23 06:17 06/27/23 06:17 Labs: Abnormal Lab Results - Last 24 Hours (Table) 06/27/23 Range/Units 06:17 WBC 29.39 H (4.50-10.00) X 10*3/uL MCHC 31.8 L (32.0-37.0) d/dL RDW 14.8 H (11.5-14.5) % Neutrophils # 26.87 H (1.80-7.70) X 10*3/uL Monocytes # 1.12 H (0.20-1.00) X 10*3/uL Eosinophils # 0 L (0.04-0.35) X 10*3/uL Microbiology - Last 24 Hours (Table) 06/24/23 14:10 Blood Culture - Preliminary Blood 06/24/23 14:10 Blood Culture - Preliminary Blood Assessment and Plan Assessment: Acute on chronic shortness of breath related to COPD/pulmonary fibrosis exacerbation. The patient is still experiencing exertional dyspnea and hypoxemia Acute on chronic hypoxic respiratory failure currently on 3 L of oxygen by nasal cannula. The patient continues to experience exertional hypoxemia Exertional dyspnea, possibly related to acute COPD exacerbation, chest x-ray shows mostly chronic fibrotic changes with a possible superimposed left lower lobe infiltrate. Negative for influenza, RSV, COVID-19. Procalcitonin level low. Pneumonia is felt to be less likely Acute on chronic hypoxemic respiratory failure, normally maintained on 2 L/m nasal cannula Biopsy-proven pulmonary fibrosis, UIP type. Maintained on Ofev Chronic obstructive pulmonary disease, chronically oxygen and steroid dependent Paroxysmal atrial fibrillation, chronically anticoagulated on Xarelto Chest pain/angina, resolved with when necessary nitroglycerin tabs. Coronary artery disease, status post previous CABG and subsequent PCI History of implanted permanent pacemaker Essential hypertension Hyperlipidemia Former tobacco smoker Plan: We will proceed with a CT angiogram of the chest to further investigate the patient's shortness of breath and hypoxemia Continue same treatment The patient is known to have COPD and biopsy confirmed IPF. The patient presented to us with worsening shortness of breath and hypoxemia and the patient was having exertional dyspnea and hypoxemia despite being supplemented with oxygen. Chest x-ray is consistent with pulmonary fibrosis. Continue coverage with Zithromax 500 mg by mouth daily Will continue anticoagulation with Xarelto. Cardiology input is appreciated Echocardiogram was noted We'll continue to follow
[2023-06-27] MEDS: ISOSORBIDE MONONITRATE ER 60 MG TAB.ER.24H PO SCH (14:41)
--- NOTE | 2023-06-27 15:43 | P.PN ---
Subjective Progress Note Date: 06/27/23 This is a pleasant 72-year-old, follows with Dr. Emilia Bob. 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 [employer] Dr. Farias. Normally uses 2 L of oxygen at night. Sometimes excessive activity in the daytime. About a week ago patient developed 40 to describe neck: Neck symptoms the runny nose. Subse quently's been noticing that is getting increasingly short of breath example going up the stairs. And oxygen pulse ox dropped down to 70-82%. No cough. No fever no chills. Just tired. Negative self COVID negative test. Patient had 3 bouts of COVID 2020. Patient at that time and received BAM. June 25: Up in a chair. at the bedside. Did desaturate going to the bathroom. Changed to Perforomist and nebulized steroids. IV steroids to continue. Follow with pulmonary. Discussed. Seen by cardiology. Increased Imdur. Added Ranexa. 06/26/2023 Patient is seen in follow-up today with cardiology and pulmonary following. Cardiology has evaluated the patient continuing current medication regimen and his worker 2-D echo which is pending. Pulmonary following this patient has h istory of pulmonary fibrosis along the COPD. Patient continues to be dyspneic with minimal exertion and oxygen saturations are dropping while on oxygen. Patient chronically wears 2 L outpatient although requiring 4 L continuously at this time. Will obtain repeat home oxygen testing this patient will likely require 4 L continuous on discharge. Patient denies chest pain or palpitations at this time. Patient is tolerating diet with no reported nausea or vomiting. Family is concerned for taking him home if he continues to be hypoxic and recovering slowly. Empiric antibiotics being added per pulmonary. 06/27/2023 Patient is seen and evaluated in follow-up today currently sitting up with at the bedside. Patient remains on 24 liters oxygen via nasal cannula and chronically wears 2 L but has only had it at night previously. Patient continues to have significant dyspnea and desaturation with minimal exertion d- dimer ordered and pending at this time. Pulmonary following maintained on empiric antibiotics and will continue current medication regimen. Patient is afebrile with no reports of chest pain or shortness of breath. Patient is tolerating diet with no reported nausea or vomiting. Encouraged increase activity as tolerated with continuous oxygen. Will perform home O2 eval closer to discharge. Review of systems: Constitutional: No reports of fatigue, fever, or chills Cardiovascular: No reports of chest pain or palpitations Respiratory: reports of shortness of breath and chronic cough GI: No reports of nausea, vomiting, or diarrhea : No reports of dysuria or retention Neurovascular: No reports of weakness or numbness All medications have been reviewed Physical examination: GENERAL: Up in a chair, awake, alert and oriented 3 on the thin built, elderly appearing EYES: Pupils equal. Conjunctiva normal. HEENT: External appearance of nose and ears normal, oral cavity grossly normal. NECK: JVD not raised; masses not palpable. HEART: S1, S2 are muffled LUNGS: decreased breath sound bilaterally with some coarse rhonchi noted. ABDOMEN: Soft, nontender, normal bowel sounds noted PSYCH: Alert and oriented x3; mood and affect normal. MUSCULOSKELETAL:No Clubbing/cyanosis;muscles-grossly intact. OA Assessment: -Acute shortness of breath with increasing hypoxia, multifactorial secondary to COPD exacerbation as well as pulmonary fibrosis -Acute on chronic hypoxic respiratory failure, secondary to above. Chronically wears 2 L outpatient -Acute COPD exacerbation, and a previous smoker -Chronic pulmonary fibrosis possibly acute exacerbation of symptoms precipitated by viral infection -Coronary artery disease prior history of coronary bypass and stent -Essential hypertension -Depression history -Paroxysmal atrial fibrillation, currently sinus rhythm -GI prophylaxis -DVT prophylaxis -Full code Plan: Patient is continued on breathing inhalational treatments along with steroids with significant history of COPD along with pulmonary fibrosis. Patient continues to be hypoxic and oxygen saturations are dropping into the 70s with exertion. Patient chronically wears 2 L outpatient but only as needed and an night and is requiring continuous 2-4 L and will repeat home O2 evaluation as patient is requiring more oxygen Pulmonary following continuing current regimen and adding empiric antibiotics as patient did have some cold-like symptoms 1 week prior with nasal congestion and increased cough. Covid testing was negative Will obtain d-dimer and chest CTA which is currently pending Cardiology evaluating the adjustments to medications and has ordered 2-D echo with no wall motion abnormalities. Pulmonary hypertension noted Encouraged increased activity as tolerated Due to multiple complex medical issues, prognosis is guarded The impression and plan of care has been dictated by Sandra Quiroz, Nurse Practitioner as directed. Dr. Robin MD I have performed a history and examination and MDM of this patient, discussed the same with the dictator, and agree with the dictator's assessment and plan as written ,documented as a scribe. Based on total visit time, I have performed more than 50% of the visit. Objective - Vital Signs Vital signs: Vital Signs Temp 97.6 F 06/27/23 12:55 Pulse 62 06/27/23 12:55 Resp 17 06/27/23 12:55 BP 144/72 06/27/23 12:55 Pulse Ox 97 06/27/23 12:55 FiO2 Intake & Output 06/26/23 06/27/23 06/27/23 18:59 06:59 18:59 Intake Total 500 Balance 500 Intake: Oral 500 Other: Voiding Method Toilet Toilet # Voids 1 2 1 - Labs CBC & Chem 7: 06/27/23 06:17 06/27/23 06:17 Labs: Abnormal Lab Results - Last 24 Hours (Table) 06/27/23 Range/Units 06:17 WBC 29.39 H (4.50-10.00) X 10*3/uL MCHC 31.8 L (32.0-37.0) d/dL RDW 14.8 H (11.5-14.5) % Neutrophils # 26.87 H (1.80-7.70) X 10*3/uL Monocytes # 1.12 H (0.20-1.00) X 10*3/uL Eosinophils # 0 L (0.04-0.35) X 10*3/uL Microbiology - Last 24 Hours (Table) 06/24/23 14:10 Blood Culture - Preliminary Blood 06/24/23 14:10 Blood Culture - Preliminary Blood
--- NOTE | 2023-06-27 17:18 | CT ---
EXAMINATION TYPE: CT angio chest CT DLP: 242.0 mGycm, Automated exposure control for dose reduction was used. DATE OF EXAM: 06/27/2023 4:39 PM COMPARISON: 12/10/2022 CLINICAL INDICATION:Male, 72 years old with history of dyspnea/hypoxemia; difficulty breathing and hy poxemia TECHNIQUE/CONTRAST: CTA scan of the thorax is performed with IV Contrast, patient injected with 80 cc mL of Isovue 370, M IP images are created and reviewed these are created on a separate workstation.. FINDINGS: Pulmonary Artery: There is no evidence for a filling defect within the pulmonary vasculature to sugge st acute pulmonary embolism. The pulmonary artery is of normal size. Lungs/Pleura: There is centrilobular and paraseptal emphysema changes worse in the right lung. Superi mposed fibrotic changes also felt to be present. There is calcified pleural scattered throughout both lung aquino. Nodule series 7 image 95. Airway: Large airways are patent. Heart: Heart is enlarged for size. Cardiac conduction leads terminating in the right ventricle and at rium. Large severe coronary artery atherosclerosis. Vasculature: Pelvic phleboliths are present Mediastinum: No gross evidence of adenopathy. Small hiatal hernia. Small hiatal hernia is present. Musculoskeletal: No acute osseous abnormalities, sternotomy wires are present. Soft Tissues: Unremarkable. Lower neck: No significant findings. Upper Abdomen: No significant findings. IMPRESSION: 1. No evidence of pulmonary embolism. 2. Pleural calcifications: History of asbestosis exposure. 3. Superimposed airspace disease on the current pulmonary fibrotic changes also thought to be present . Most pronounced on the right, Correlate for pneumonia. 4. Right lower lobe 12 mm pulmonary nodule consider further evaluation with PET/CT. 5. Cardiomegaly with severe pulmonary vascular coronary artery disease.
[2023-06-27] MEDS: AZITHROMYCIN 500 MG TAB PO SCH (18:04)
[2023-06-27] MEDS: RIVAROXABAN 15 MG TAB PO SCH (18:05)
[2023-06-27] MEDS: ATORVASTATIN 40 MG TAB PO SCH (21:10)
[2023-06-28] MEDS: methylPREDNISolone SOD SUCCI 125 MG/2 ML VIAL IV SCH ×4 (00:07→18:38)
[2023-06-28] MEDS: BUDESONIDE 1 MG/2 ML NEBU INHALATION SCH ×2 (08:19→19:45)
[2023-06-28] MEDS: IPRATROPIUM-ALBUTEROL 3 ML NEB INHALATION PRN ×2 (08:19→19:44)
[2023-06-28] MEDS: FORMOTEROL FUMARATE 20 MCG/2 ML NEBU INHALATION SCH ×2 (08:19→19:46)
[2023-06-28] MEDS: RANOLAZINE 500 MG TAB.ER.12H PO SCH ×2 (10:00→21:12)
[2023-06-28] MEDS: FERROUS SULFATE 325 MG TAB PO SCH (10:00)
[2023-06-28] MEDS: CLOPIDOGREL 75 MG TAB PO SCH (10:00)
[2023-06-28] MEDS: GABAPENTIN 300 MG CAP PO SCH ×2 (10:00→21:12)
[2023-06-28] MEDS: buPROPion SR 150 MG TABLET.ER PO SCH ×2 (10:00→21:12)
[2023-06-28] MEDS: PANTOPRAZOLE 40 MG TABLET PO SCH (10:00)
[2023-06-28] MEDS: METOPROLOL TARTRATE 50 MG TAB PO SCH ×2 (10:01→21:12)
[2023-06-28] MEDS: PATIENT'S OWN (Nintedanib Esylate [Ofev] 150 MG Capsule) PO SCH ×2 (10:01→21:03)
[2023-06-28] MEDS: LACTULOSE 20 GM/30 ML CUP PO PRN (10:17)
--- NOTE | 2023-06-28 12:36 | P.PN ---
Subjective Progress Note Date: 06/28/23 I am seeing this patient in new consultation today 06/25/2023 after the patient presented with worsening exertional dyspnea that started approximately 1 week ago. Patient is a 72-year-old white male with past medical history significant for COPD, pulmonary fibrosis, chronic oxygen dependence maintained on 2 L/m nasal cannula at bedtime, atrial fibrillation anticoagulated on Xarelto, coronary artery disease with previous CABG, he does have an implanted permanent pacemaker, hypertension, hyperlipidemia, among other things. Patient does follow in the pulmonary office with Dr. Farias. He does have moderate COPD with an FEV1 69% of predicted. He is chronically oxygen and steroid dependent. He utilizes a combination of Wixela and as needed albuterol. He also has biopsy- proven pulmonary fibrosis, UIP type. He is maintained on Ofev. Patient presented to emergency room yesterday morning complaining of worsening exertional dyspnea. He does have chronic dyspnea related to his pulmonary diseases. He states that his shortness of breath worsens with minimal exertion including walking to the bathroom. While climbing the stairs in his home, he says that his pulse oximeter level dropped to 70% while on supplemental 2 L home O2 yesterday. He does not normally wear his oxygen 14/04, but has been lately. He admits to URI like symptoms approximately 1 week ago. Denies any fevers, chills, myalgias, cough. He does admit severe substernal chest pain last week that resolved with 2 nitroglycerin tabs. He does have a significant cardiac history. Denies recent stress test. He denies any current chest pain, heart palpitations, heaviness, syncope, or lower extremities swelling. Patient is currently lying in bed, on 2 L/m nasal cannula, in no acute distress. Chest x- ray redemonstrated his underlying interstitial fibrosis, there is also possible superimposed left lower lobe infiltrate. CBC on arrival showed a WBC count 11, hemoglobin 15.2, hematocrit 47.3, platelets 250. CMP on arrival is unremarkable. Troponin was 0.015. ECG shows normal sinus rhythm without any obvious acute ischemic changes. There are chronic q wave changes in II, III, AVF; right axis deviation. NT proBNP not significantly elevated for age at 755. Procalcitonin level was low at 0.06. Negative for influenza, RSV, COVID-19. Patient was empirically started on azithromycin and Rocephin. Afebrile. Patient is hemodynamically stable. On today's evaluation of 06/26/2023, the patient continues to be short of breath although slightly improved compared to yesterday. Nevertheless, the patient is still having exertional hypoxemia. The patient is on a pulse ox is around 87%. The patient is currently on 2 L of oxygen by nasal cannula. No new complaints otherwise for now. Remains on bronchodilators. Remains on steroids. The patient's pro-calcitonin level is at 0.06. Troponins are negative. No altered mentation. No pleurisy. No hemoptysis. No edema in lower extremities. No chest pain at this point in time. Overall condition is stable. On today's evaluation of 06/27/2023 the patient is still having difficulties in breathing and some exertional hypoxemia. Pulse ox is dropping down to the low 80s while him being on 2 L of Oxymizer nasal cannula and this is unusual for the patient. He does recover with rest. Echocardiogram showed some segmental wall motion of the mouth is related to her previous SD. Left ejection fraction is well-preserved. The patient remains on bronchodilators. The patient remains on steroids. Zithromax was also added was added as an empiric antibiotic coverage. White cell count is higher at 29. D-dimer is at 0.24. Hemoglobin is at 14. BUN is at 80 with a creatinine of 0.5 and sodium level is at 138. On 06/28/2023, the patient is being seen for a follow-up. Still having exertional dyspnea and hypoxemia. I reviewed the CAT scan of the chest was done yesterday. There is chronic fibrosis in addition to that there is some increased interstitial changes peripherally in the lung bases. This can be potentially a superinfection or progression of his underlying pulmonary fibrosis. Patient is on Zithromax. I added Rocephin. Remains on O2 at 2 L/m nasal cannula. Objective - Vital Signs Vital signs: Vital Signs Temp 97.3 F L 06/28/23 11:33 Pulse 66 06/28/23 11:33 Resp 16 06/28/23 11:33 BP 149/75 06/28/23 11:33 Pulse Ox 93 L 06/28/23 11:33 FiO2 Intake & Output 06/27/23 06/28/23 06/28/23 18:59 06:59 18:59 Intake Total 600 Balance 600 Intake: Oral 600 Other: Voiding Method Toilet Toilet Toilet # Voids 1 2 - Labs CBC & Chem 7: 06/27/23 06:17 06/27/23 06:17 Labs: Abnormal Lab Results - Last 24 Hours (Table) 06/27/23 Range/Units 06:17 BUN/Creatinine Ratio 20.89 H (12.00-20.00) Ratio Microbiology - Last 24 Hours (Table) 06/24/23 14:10 Blood Culture - Preliminary Blood 06/24/23 14:10 Blood Culture - Preliminary Blood Assessment and Plan Assessment: Acute on chronic shortness of breath related to COPD/pulmonary fibrosis exac erbation. The patient is still experiencing exertional dyspnea and hypoxemia Acute on chronic hypoxic respiratory failure currently on 3 L of oxygen by nasal cannula. The patient continues to experience exertional hypoxemia Exertional dyspnea, possibly related to acute COPD exacerbation, chest x-ray shows mostly chronic fibrotic changes with a possible superimposed left lower lobe infiltrate. Negative for influenza, RSV, COVID-19. Procalcitonin level low. Pneumonia is felt to be less likely Acute on chronic hypoxemic respiratory failure, normally maintained on 2 L/m nasal cannula Biopsy-proven pulmonary fibrosis, UIP type. Maintained on Ofev Chronic obstructive pulmonary disease, chronically oxygen and steroid dependent Paroxysmal atrial fibrillation, chronically anticoagulated on Xarelto Chest pain/angina, resolved with when necessary nitroglycerin tabs. Coronary artery disease, status post previous CABG and subsequent PCI History of implanted permanent pacemaker Essential hypertension Hyperlipidemia Former tobacco smoker Plan: CAT scan of the chest was reviewed. It is consistent with either progression of the marilou fibrosis. Superinfection cannot be ruled out. Continue same treatment, continue Zithromax and add Rocephin The patient is known to have COPD and biopsy confirmed IPF. Will continue anticoagulation with Xarelto. Cardiology input is appreciated Echocardiogram was noted We'll continue to follow
[2023-06-28] MEDS: ISOSORBIDE MONONITRATE ER 60 MG TAB.ER.24H PO SCH (12:37)
[2023-06-28] MEDS: RIVAROXABAN 15 MG TAB PO SCH (17:42)
[2023-06-28] MEDS: AZITHROMYCIN 500 MG TAB PO SCH (17:43)
[2023-06-28] MEDS: ATORVASTATIN 40 MG TAB PO SCH (21:12)
--- NOTE | 2023-06-28 22:17 | PN ---
PROGRESS NOTE DATE OF SERVICE: 06/28/2023 SUBJECTIVE: This is a 72-year-old gentleman, who was admitted with pulmonary fibrosis acute exacerbation, also had a CT angio of the chest, which showed no evidence of any pulmonary embolism, superimposed pneumonia was noted, right more than the left. Pulmonary nodules also noted. No chest pain. No palpitations. No fever. OBJECTIVE: VITAL SIGNS: Pulse is 66, blood pressure 114/70, respirations 16. CHEST: A few scattered rhonchi and crackles. ABDOMEN: Soft. NERVOUS SYSTEM: Nonfocal. LABORATORY DATA: WBC 29.9. ASSESSMENT: 1. Acute shortness of breath, pulmonary fibrosis acute exacerbation. 2. Acute bilateral pneumonia possibly gram-negative, right more than the left. 3. Acute hypoxic respiratory failure. 4. Chronic obstructive pulmonary disease acute exacerbation. 5. Coronary artery disease. 6. Hypertension. 7. Multiple complex medical issues. RECOMMENDATIONS: Recommend to continue current management and continue symptomatic treatment. Otherwise, at this time, I recommend continue the antibiotics. Repeat labs. Closely follow with Dr. Fonseca. Prognosis guarded. Further recommendations to follow. MMODL / IJN: [id number] /
[2023-06-29] MEDS: methylPREDNISolone SOD SUCCI 125 MG/2 ML VIAL IV SCH ×5 (00:29→23:54)
[2023-06-29] MEDS: BUDESONIDE 1 MG/2 ML NEBU INHALATION SCH ×2 (08:03→18:16)
[2023-06-29] MEDS: FORMOTEROL FUMARATE 20 MCG/2 ML NEBU INHALATION SCH ×2 (08:03→18:16)
[2023-06-29] MEDS: IPRATROPIUM-ALBUTEROL 3 ML NEB INHALATION PRN (08:03)
[2023-06-29 08:17] LABS: Basophils % (A) 0 %; Eosinophils % (A) 0 %; HCT 43.9 % (39.0-53.0); Lymphocytes # (A) 0.9 k/uL (1.0-4.8); Lymphocytes % (A) 4 %; MCH 30.1 pg (25.0-35.0); MCHC 31.8 g/dL (31.0-37.0); MCV 94.6 fL (80.0-100.0); Mean Platelet Volume 7.7; Monocytes # (A) 1.4 k/uL (0-1.0); Monocytes % (A) 6 %; Neutrophils # (A) 21.6 k/uL (1.3-7.7); Neutrophils % (A) 90 %; Platelet Count 315 k/uL (150-450); RBC 4.64 m/uL (4.30-5.90); RDW 14.4 % (11.5-15.5); WBC 24.1 k/uL (3.8-10.6)
[2023-06-29 08:23] LABS: African American GFR (CKD) >90 (>60 ml/min/1.73 sqM); Anion Gap 8 mmol/L; Blood Urea Nitrogen 23 mg/dL (9-20); Calcium 8.8 mg/dL (8.4-10.2); Carbon Dioxide 24 mmol/L (22-30); Chloride 101 mmol/L (98-107); Glucose 123 mg/dL (74-99); Non-African American GFR(CKD) >90 (>60 ml/min/1.73 sqM); Potassium 4.2 mmol/L (3.5-5.1); Sodium 133 mmol/L (137-145)
[2023-06-29] MEDS: buPROPion SR 150 MG TABLET.ER PO SCH ×2 (09:43→20:27)
[2023-06-29] MEDS: RANOLAZINE 500 MG TAB.ER.12H PO SCH ×2 (09:43→20:27)
[2023-06-29] MEDS: GABAPENTIN 300 MG CAP PO SCH ×2 (09:44→20:27)
[2023-06-29] MEDS: CLOPIDOGREL 75 MG TAB PO SCH (09:44)
[2023-06-29] MEDS: PANTOPRAZOLE 40 MG TABLET PO SCH (09:44)
[2023-06-29] MEDS: METOPROLOL TARTRATE 50 MG TAB PO SCH ×2 (09:44→20:27)
[2023-06-29] MEDS: FERROUS SULFATE 325 MG TAB PO SCH (09:44)
[2023-06-29] MEDS: PATIENT'S OWN (Nintedanib Esylate [Ofev] 150 MG Capsule) PO SCH ×2 (09:46→20:33)
--- NOTE | 2023-06-29 11:59 | P.PN ---
Subjective Progress Note Date: 06/29/23 I am seeing this patient in new consultation today 06/25/2023 after the patient presented with worsening exertional dyspnea that started approximately 1 week ago. Patient is a 72-year-old white male with past medical history significant for COPD, pulmonary fibrosis, chronic oxygen dependence maintained on 2 L/m nasal cannula at bedtime, atrial fibrillation anticoagulated on Xarelto, coronary artery disease with previous CABG, he does have an implanted permanent pacemaker, hypertension, hyperlipidemia, among other things. Patient does follow in the pulmonary office with Dr. Farias. He does have moderate COPD with an FEV1 69% of predicted. He is chronically oxygen and steroid dependent. He utilizes a combination of Wixela and as needed albuterol. He also has biopsy- proven pulmonary fibrosis, UIP type. He is maintained on Ofev. Patient presented to emergency room yesterday morning complaining of worsening exertional dyspnea. He does have chronic dyspnea related to his pulmonary diseases. He states that his shortness of breath worsens with minimal exertion including walking to the bathroom. While climbing the stairs in his home, he says that his pulse oximeter level dropped to 70% while on supplemental 2 L home O2 yesterday. He does not normally wear his oxygen 14/04, but has been lately. He admits to URI like symptoms approximately 1 week ago. Denies any fevers, chills, myalgias, cough. He does admit severe substernal chest pain last week that resolved with 2 nitroglycerin tabs. He does have a significant cardiac history. Denies recent stress test. He denies any current chest pain, heart palpitations, heaviness, syncope, or lower extremities swelling. Patient is currently lying in bed, on 2 L/m nasal cannula, in no acute distress. Chest x- ray redemonstrated his underlying interstitial fibrosis, there is also possible superimposed left lower lobe infiltrate. CBC on arrival showed a WBC count 11, hemoglobin 15.2, hematocrit 47.3, platelets 250. CMP on arrival is unremarkable. Troponin was 0.015. ECG shows normal sinus rhythm without any obvious acute ischemic changes. There are chronic q wave changes in II, III, AVF; right axis deviation. NT proBNP not significantly elevated for age at 757. Procalcitonin level was low at 0.06. Negative for influenza, RSV, COVID-19. Patient was empirically started on azithromycin and Rocephin. Afebrile. Patient is hemodynamically stable. On today's evaluation of 06/26/2023, the patient continues to be short of breath although slightly improved compared to yesterday. Nevertheless, the patient is still having exertional hypoxemia. The patient is on a pulse ox is around 87%. The patient is currently on 2 L of oxygen by nasal cannula. No new complaints otherwise for now. Remains on bronchodilators. Remains on steroids. The patient's pro-calcitonin level is at 0.06. Troponins are negative. No altered mentation. No pleurisy. No hemoptysis. No edema in lower extremities. No chest pain at this point in time. Overall condition is stable. On today's evaluation of 06/27/2023 the patient is still having difficulties in breathing and some exertional hypoxemia. Pulse ox is dropping down to the low 80s while him being on 2 L of Oxymizer nasal cannula and this is unusual for the patient. He does recover with rest. Echocardiogram showed some segmental wall motion of the mouth is related to her previous PA. Left ejection fraction is well-preserved. The patient remains on bronchodilators. The patient remains on steroids. Zithromax was also added was added as an empiric antibiotic coverage. White cell count is higher at 29. D-dimer is at 0.24. Hemoglobin is at 14. BUN is at 80 with a creatinine of 0.5 and sodium level is at 138. On 06/28/2023, the patient is being seen for a follow-up. Still having exertional dyspnea and hypoxemia. I reviewed the CAT scan of the chest was done yesterday. There is chronic fibrosis in addition to that there is some increased interstitial changes peripherally in the lung bases. This can be potentially a superinfection or progression of his underlying pulmonary fibrosis. Patient is on Zithromax. I added Rocephin. Remains on O2 at 2 L/m nasal cannula. On 06/29/2023, the patient is essentially unchanged. He is still having some exertional dyspnea and fatigue. He is also having exertional hypoxemia. He is currently on 3 L of oxygen by nasal cannula. He developed some leukocytosis with a white second as high as 29. Subsequent white cell count dropped down to 24 with a hemoglobin of 14. BUN is at 23 with a creatinine of 0.6. No new complaints otherwise for now is on 3 L with a pulse ox of 96%. Objective - Vital Signs Vital signs: Vital Signs Temp 98.6 F 06/29/23 02:00 Pulse 72 06/29/23 08:30 Resp 16 06/29/23 02:00 BP 109/62 06/29/23 02:00 Pulse Ox 96 06/29/23 08:08 FiO2 Intake & Output 06/28/23 06/29/23 06/29/23 18:59 06:59 18:59 Intake Total 50 600 Balance 50 600 Intake: Intake, IV Titration 50 Amount cefTRIAXone 1 gm In 50 Sodium Chloride 0.9% 50 ml @ 100 mls/hr IVPB Q24HR [facility] Rx#:[id number] Oral 600 Other: Voiding Method Toilet Toilet Toilet # Voids 2 - Exam GENERAL EXAM: Alert, 72-year-old white male , comfortable in no apparent distress. The patient remains on 3 L of oxygen by nasal cannula with a pulse ox of 97% at rest, afebrile HEAD: Normocephalic and atraumatic EYES: Normal reaction of pupils, equal size. NOSE: Clear with pink turbinates. THROAT: No erythema or exudates. NECK: No masses, no JVD. CHEST: No chest wall deformity. Old midsternal sternotomy incisional scar LUNGS: Equal air entry with bibasilar inspiratory Velcro crackles. No wheezing, rhonchi, dullness. No conversational dyspnea or accessory muscle use.. CVS: S1 and S2 normal with grade 1 systolic ejection murmur, regular rhythm. No other extra heart sounds ABDOMEN: No hepatosplenomegaly, active bowel sounds, no guarding or rigidity. SPINE: No scoliosis or deformity SKIN: No rashes CENTRAL NERVOUS SYSTEM: No focal deficits, tone is normal in all 4 extremities. EXTREMITIES: There is no peripheral edema, clubbing, or cyanosis. Peripheral pulses are intact. - Labs CBC & Chem 7: 06/29/23 07:16 06/29/23 07:16 Labs: Abnormal Lab Results - Last 24 Hours (Table) 06/29/23 06/29/23 Range/Units 07:16 07:16 WBC 24.1 H (3.8-10.6) k/uL Neutrophils # 21.6 H (1.3-7.7) k/uL Lymphocytes # 0.9 L (1.0-4.8) k/uL Monocytes # 1.4 H (0-1.0) k/uL Sodium 133 L (137-145) mmol/L BUN 23 H (9-20) mg/dL Creatinine 0.63 L (0.66-1.25) mg/dL Glucose 123 H (74-99) mg/dL Microbiology - Last 24 Hours (Table) 06/27/23 16:17 Gram Stain - Preliminary Sputum Assessment and Plan Assessment: Acute on chronic shortness of breath related to COPD/pulmonary fibrosis exacerbation. The patient is still experiencing exertional dyspnea and hypoxemia Acute on chronic hypoxic respiratory failure currently on 3 L of oxygen by nasal cannula. The patient continues to experience exertional hypoxemia Exertional dyspnea, possibly related to acute COPD exacerbation, chest x-ray shows mostly chronic fibrotic changes with a possible superimposed left lower lobe infiltrate. Negative for influenza, RSV, COVID-19. Procalcitonin level low. Pneumonia is felt to be less likely Acute on chronic hypoxemic respiratory failure, normally maintained on 2 L/m nasal cannula Biopsy-proven pulmonary fibrosis, UIP type. Maintained on Ofev Chronic obstructive pulmonary disease, chronically oxygen and steroid dependent Paroxysmal atrial fibrillation, chronically anticoagulated on Xarelto Chest pain/angina, resolved with when necessary nitroglycerin tabs. Coronary artery disease, status post previous CABG and subsequent PCI History of implanted permanent pacemaker Essential hypertension Hyperlipidemia Former tobacco smoker Plan: The white cell count is improving. CAT scan of the chest was reviewed. It is consistent with either progression of the pulmonary fibrosis. Superinfection cannot be ruled out.. The patient is being given the benefit of the doubt and is being treated with steroids and antibiotics Continue same treatment, continue Zithromax and add Rocephin The patient is known to have COPD and biopsy confirmed IPF. Will continue anticoagulation with Xarelto. Repeat chest x-ray in the morning Cardiology input is appreciated Echocardiogram was noted We'll continue to follow
[2023-06-29] MEDS: ISOSORBIDE MONONITRATE ER 60 MG TAB.ER.24H PO SCH (13:20)
[2023-06-29] MEDS: NITROGLYCERIN SL TABS 0.4 MG TAB SUBLINGUAL PRN ×3 (13:27→17:52)
[2023-06-29] MEDS: RIVAROXABAN 15 MG TAB PO SCH (17:27)
[2023-06-29] MEDS: ALBUTEROL NEBULIZED 2.5 MG/3 ML INHALATION PRN (18:16)
[2023-06-29 19:35] LABS: Creatine Kinase MB 3.7 ng/mL (0.0-3.4); Troponin I <0.012 ng/mL (0.000-0.034)
[2023-06-29] MEDS: MELATONIN 3 MG TABLET PO PRN (20:27)
[2023-06-29] MEDS: ATORVASTATIN 40 MG TAB PO SCH (20:27)
--- NOTE | 2023-06-29 21:35 | PN ---
PROGRESS NOTE DATE OF SERVICE: 06/29/2023 SUBJECTIVE: This is a 72-year-old gentleman who was admitted with acute shortness of breath, pulmonary fibrosis acute exacerbation with bilateral pneumonia. No chest pain. No palpitations. No fever. OBJECTIVE: VITAL SIGNS: Pulse is 61, blood pressure ntd, respirations 16. HEENT: Conjunctivae normal. CARDIOVASCULAR: S1, S2. RESPIRATIONS: Bibasilar crackles. ABDOMEN: Soft, nontender. LABORATORY DATA: WBC 24.1. ASSESSMENT: 1. Acute shortness of breath, possible pulmonary fibrosis acute exacerbation. 2. Acute bilateral pneumonia possibly gram-negative right more than the left. 3. Acute hypoxic respiratory failure. 4. Chronic obstructive pulmonary disease acute exacerbation. 5. Coronary artery disease. 6. Hypertension. 7. Multiple complex medical issues. RECOMMENDATIONS: Recommend to continue current management and continue with antibiotics. Cultures are negative so far. I would recommend repeat labs. Further recommendations to follow. MMCYNDYL / IJN: [id number] / MTDD
[2023-06-29 23:15] LABS: Creatine Kinase MB 3.9 ng/mL (0.0-3.4); Troponin I <0.012 ng/mL (0.000-0.034)
[2023-06-30 03:27] LABS: Creatine Kinase MB 3.5 ng/mL (0.0-3.4); Troponin I <0.012 ng/mL (0.000-0.034)
[2023-06-30] MEDS: methylPREDNISolone SOD SUCCI 125 MG/2 ML VIAL IV SCH ×2 (05:58→11:45)
[2023-06-30 07:49] LABS: Basophils % (A) 0 %; Eosinophils % (A) 0 %; HGB 13.1 gm/dL (13.0-17.5); Lymphocytes # (A) 0.8 k/uL (1.0-4.8); Lymphocytes % (A) 4 %; MCH 30.3 pg (25.0-35.0); MCV 94.6 fL (80.0-100.0); Mean Platelet Volume 7.5; Monocytes # (A) 1.1 k/uL (0-1.0); Monocytes % (A) 5 %; Neutrophils # (A) 19.8 k/uL (1.3-7.7); Neutrophils % (A) 90 %; Platelet Count 282 k/uL (150-450); RBC 4.33 m/uL (4.30-5.90); RDW 14.4 % (11.5-15.5); WBC 21.9 k/uL (3.8-10.6)
[2023-06-30] MEDS: FORMOTEROL FUMARATE 20 MCG/2 ML NEBU INHALATION SCH ×2 (08:43→22:31)
[2023-06-30] MEDS: IPRATROPIUM-ALBUTEROL 3 ML NEB INHALATION PRN ×2 (08:44→22:31)
[2023-06-30] MEDS: BUDESONIDE 1 MG/2 ML NEBU INHALATION SCH ×2 (08:44→22:32)
[2023-06-30] MEDS ORDERED: HEPARIN SODIUM 1,000 UN/ML (10ML VL) IV ONE (08:50)
[2023-06-30] MEDS ORDERED: HEPARIN SODIUM 1,000 UN/ML (10ML VL) IV PRN (08:50)
[2023-06-30] MEDS: METOPROLOL TARTRATE 50 MG TAB PO SCH ×2 (09:01→20:12)
[2023-06-30] MEDS: buPROPion SR 150 MG TABLET.ER PO SCH ×2 (09:01→21:08)
[2023-06-30] MEDS: PANTOPRAZOLE 40 MG TABLET PO SCH (09:01)
[2023-06-30] MEDS: FERROUS SULFATE 325 MG TAB PO SCH (09:01)
[2023-06-30] MEDS: GABAPENTIN 300 MG CAP PO SCH ×2 (09:01→20:12)
[2023-06-30] MEDS: CLOPIDOGREL 75 MG TAB PO SCH (09:01)
[2023-06-30] MEDS: RANOLAZINE 500 MG TAB.ER.12H PO SCH ×2 (09:02→20:13)
[2023-06-30] MEDS: PATIENT'S OWN (Nintedanib Esylate [Ofev] 150 MG Capsule) PO SCH ×2 (09:02→20:13)
[2023-06-30 11:01] LABS: Basophils % (A) 0 %; Eosinophils % (A) 0 %; HCT 43.5 % (39.0-53.0); HGB 13.8 gm/dL (13.0-17.5); Lymphocytes # (A) 0.6 k/uL (1.0-4.8); Lymphocytes % (A) 3 %; MCH 30.4 pg (25.0-35.0); MCHC 31.8 g/dL (31.0-37.0); MCV 95.6 fL (80.0-100.0); Mean Platelet Volume 7.6; Monocytes % (A) 5 %; Neutrophils % (A) 92 %; Platelet Count 301 k/uL (150-450); RBC 4.55 m/uL (4.30-5.90); RDW 14.4 % (11.5-15.5); WBC 22.8 k/uL (3.8-10.6)
[2023-06-30 11:08] LABS: INR 1.1 (<1.2); Prothrombin Time 11.1 sec (9.0-12.0)
[2023-06-30 11:09] LABS: BUN/Creat Ratio 29.12 Ratio (12.00-20.00); Blood Urea Nitrogen 23.3 mg/dL (9.0-27.0); Calcium 8.1 mg/dL (8.7-10.3); Carbon Dioxide 22.7 mmol/L (21.6-31.8); Chloride 102 mmol/L (96-109); Glucose 132 mg/dL (70-110); Potassium 3.7 mmol/L (3.5-5.5); Sodium 133 mmol/L (135-145)
[2023-06-30] MEDS: NITROGLYCERIN OINT 1 INCH/GM PACKET TOPICAL SCH ×3 (11:45→18:06)
[2023-06-30] MEDS: HEPARIN SOD,PORK IN 0.45% NACL 25,000 UNIT in 0.45% NACL 1 250ML.BAG IV SCH (11:48)
[2023-06-30] MEDS ORDERED: NITROGLYCERIN SL TABS 0.4 MG TAB SUBLINGUAL PRN (11:56)
--- NOTE | 2023-06-30 11:56 | P.PN ---
Subjective HISTORY OF PRESENT ILLNESS: History of present illness: This is a 72-year-old male patient of Dr. LIDIA Falk with past medical history of coronary artery disease disease with prior bypass surgery and PTCA, paroxysmal atrial fibrillation on Xarelto for anticoagulation, history of sick sinus syndrome with permanent pacemaker, hypertension, hyperlipidemia, COPD, pulmonary fibrosis under the care of Dr. Farias. We have been asked to evaluate the patient for coronary artery disease. Patient states that last week he had cold symptoms such as a sore throat and runny nose. On Friday he started having some difficulty breathing and on Friday he was having more shortness of breath. His states that his pulse ox is usually 94-96% during the day without oxygen but on Friday pulse ox dropped down to 86%. Patient had episode of chest pain and took 2 nitroglycerin that seemed to help. On Friday, patient called Dr. Falk and was told to monitor, follow-up with Dr. Mcdowell. Patient contacted Dr. Farias and if he worsened her continue to have trouble, coming to the emergency center so he did. Patient denies having any chest pain at this time. Patient becomes significantly dyspneic with ambulating to the bathroom with oxygen. He has been seen by pulmonary medicine for pulmonary fibrosis doubt pneumonia. EKG sinus rhythm with a right bundle branch block Chest x-ray: patchy and interstitial infiltrates mid and lower lungs persist, slightly worse on the left base. Correlate for possible underlying fibrosis with superimposed infiltrate on the left. WBC 11, hemoglobin 15.2, platelet count 250. INR 1. Electrolytes and renal function normal. Troponin negative 1. ProBNP 755. Liver function tests are n ormal. Lactic acid 1.4. Pro-calcitonin 0.06. Influenza A, influenza B, Legionella, RSV, Covid 19 negative. Home cardiac medications: atorvastatin 40 mg at bedtime, Plavix 75 mg daily, Imdur 30 mg daily at noon, lisinopril 2.5 mg at bedtime, Lopressor 50 mg twice daily, Nitrostat as needed, Xarelto 50 mg at supper. 12/09/2021 PCI of the mid circumflex CT oh at [facility] 11/20/2021 PCI unsuccessful to the mid circumflex. No gradient occluded LAD and nondominant RCA tuscarora circumflex stented at the ostium proximal portion patent, new lesion in the midportion of chronic total occlusion, ZABALA patent, SVG to OM occluded, SVG to PLF patent. Echocardiogram 12/2022 EF 50%, mild inferior wall hypokinesia, mild diastolic dysfunction. Moderate mitral regurgitation, moderate tricuspid regurgitation, moderate pulmonary hypertension. 06/26 Patient is seen today in follow-up. We increased Imdur 60 mg at noon and added Ranexa yesterday. Patient does state he had some tightness in his chest this morning with deep breathing. He denies having any tightness in his chest with ambulation. Patient did have a drop in his pulse ox on 80% this morning with ambulation. Heart rate is in the 80s and 90s, blood pressure running between 124/70 and 163/84. 06/27 Patient states that his reading is seeming to get better. He denies having any chest pain. He feels that he is ready to go home. He is currently on O2 at 2 L nasal cannula with pulse ox 93%, he's been afebrile, heart rate in the 60s, blood pressure 156/62. Echocardiogram reveals normal LV systolic function. Hypokinesis of the inferior wall suggestive prior IA. Mild to moderate mitral regurgitation. 06/30/2023 Cardiology was reconsulted to evaluate patient for chest pain. Patient examined this morning at the bedside. Patient reports he had 3 separate episodes yesterday of chest discomfort that resolved with nitro. At the time of examination this morning, patient denies chest pain or pressure. He denies shortness of breath. PHYSICAL EXAM: VITAL SIGNS: Reviewed. GENERAL: Well-developed in no acute distress. NECK: Supple. No JVD or thyromegaly LUNGS: Respirations even and unlabored. Lungs essentially clear to auscultation bilaterally. HEART: Regular rate and rhythm. S1 and S2 heard. EXTREMITIES: Normal range of motion. No clubbing or cyanosis. Peripheral pulses intact. No lower extremity edema ASSESSMENT: Chest pain/[place] Acute on chronic hypoxic respiratory failure Coronary artery disease with prior bypass surgery and [employer] Paroxysmal atrial fibrillation History of sick sinus syndrome status post permanent pacemaker Hypertension Hyperlipidemia COPD Pulmonary fibrosis PLAN: Discontinue Xarelto. Begin IV heparin Add nitro paste. Imdur on hold. Increase Ranexa to 1000mg twice a day Add Aspirin 81 mg daily Continue additional cardiac medications Nothing by mouth at midnight Patient to be transferred to [facility] with telemetry monitoring Patient to undergo cardiac catheterization with Dr. Sinclair as Dr. Falk, his primary stripper preliminary, is unavailable Further recommendations pending patient's course Nurse practitioner note has been reviewed by physician. Signing provider agrees with the documented findings, assessment, and plan of care. Objective - Vital Signs Vital signs: Vital Signs Temp 97.5 F L 06/30/23 07:30 Pulse 74 06/30/23 09:03 Resp 18 06/30/23 07:30 BP 115/53 06/30/23 07:30 Pulse Ox 92 L 06/30/23 08:47 FiO2 Intake & Output 06/29/23 06/30/23 06/30/23 18:59 06:59 18:59 Intake Total 50 600 Balance 50 600 Intake: Intake, IV Titration 50 Amount cefTRIAXone 1 gm In 50 Sodium Chloride 0.9% 50 ml @ 100 mls/hr IVPB Q24HR [facility] Rx#:[id number] Oral 600 Other: Voiding Method Toilet Toilet Toilet # Voids 2 - Labs CBC & Chem 7: 06/30/23 10:32 06/30/23 07:18 Labs: Abnormal Lab Results - Last 24 Hours (Table) 06/29/23 06/29/23 06/30/23 Range/Units 18:48 22:32 02:33 WBC (3.8-10.6) k/uL Neutrophils # (1.3-7.7) k/uL Lymphocytes # (1.0-4.8) k/uL Monocytes # (0-1.0) k/uL Sodium (135-145) mmol/L BUN/Creatinine Ratio (12.00-20.00) Ratio Glucose (70-110) mg/dL Calcium (8.7-10.3) mg/dL CK-MB (CK-2) 3.7 H 3.9 H 3.5 H (0.0-3.4) ng/mL 06/30/23 06/30/23 06/30/23 Range/Units 07:18 07:18 10:32 WBC 21.9 H 22.8 H (3.8-10.6) k/uL Neutrophils # 19.8 H 21.0 H (1.3-7.7) k/uL Lymphocytes # 0.8 L 0.6 L (1.0-4.8) k/uL Monocytes # 1.1 H (0-1.0) k/uL Sodium 133 L (135-145) mmol/L BUN/Creatinine Ratio 29.12 H (12.00-20.00) Ratio Glucose 132 H (70-110) mg/dL Calcium 8.1 L (8.7-10.3) mg/dL CK-MB (CK-2) (0.0-3.4) ng/mL Microbiology - Last 24 Hours (Table) 06/27/23 16:17 Gram Stain - Final Sputum Sputum Culture - Final 06/24/23 14:10 Blood Culture - Final Blood 06/24/23 14:10 Blood Culture - Final Blood
[2023-06-30] MEDS ORDERED: ASPIRIN 81 MG PO SCH (12:00)
--- NOTE | 2023-06-30 13:18 | XR ---
EXAMINATION TYPE: XR chest 2V DATE OF EXAM: 06/30/2023 12:59 PM CLINICAL INDICATION:Male, 72 years old with history of follow-up pulmonary fibrosis; [facility] COMPARISON: Chest radiographs from 06/25/2023 TECHNIQUE: XR chest 2V Frontal and lateral views of the chest. FINDINGS: Lungs/Pleura: Similar aeration the lungs with increased interstitial lung markings most pronounced in lung bases. No pneumothorax or pleural effusion. Pulmonary vascularity: Unremarkable. Heart/mediastinum: Cardiomediastinal silhouette is unremarkable. Two lead cardiac conduction device o verlying the left hemithorax with lead tips projecting over the right ventricle and right atrium. Musculoskeletal: No acute osseous pathology. Midline sternotomy wires are noted. Other findings: None IMPRESSION: No significant change compared to CT or recent radiographs fibrotic changes with suspected superimpos ed airspace disease
--- NOTE | 2023-06-30 14:25 | P.PN ---
Subjective Progress Note Date: 06/30/23 I am seeing this patient in new consultation today 06/25/2023 after the patient presented with worsening exertional dyspnea that started approximately 1 week ago. Patient is a 72-year-old white male with past medical history significant for COPD, pulmonary fibrosis, chronic oxygen dependence maintained on 2 L/m nasal cannula at bedtime, atrial fibrillation anticoagulated on Xarelto, coronary artery disease with previous CABG, he does have an implanted permanent pacemaker, hypertension, hyperlipidemia, among other things. Patient does follow in the pulmonary office with Dr. Farias. He does have moderate COPD with an FEV1 69% of predicted. He is chronically oxygen and steroid dependent. He utilizes a combination of Wixela and as needed albuterol. He also has biopsy- proven pulmonary fibrosis, UIP type. He is maintained on Ofev. Patient presented to emergency room yesterday morning complaining of worsening exertional dyspnea. He does have chronic dyspnea related to his pulmonary diseases. He states that his shortness of breath worsens with minimal exertion including walking to the bathroom. While climbing the stairs in his home, he says that his pulse oximeter level dropped to 70% while on supplemental 2 L home O2 yesterday. He does not normally wear his oxygen 14/04, but has been lately. He admits to URI like symptoms approximately 1 week ago. Denies any fevers, chills, myalgias, cough. He does admit severe substernal chest pain last week that resolved with 2 nitroglycerin tabs. He does have a significant cardiac history. Denies recent stress test. He denies any current chest pain, heart palpitations, heaviness, syncope, or lower extremities swelling. Patient is currently lying in bed, on 2 L/m nasal cannula, in no acute distress. Chest x- ray redemonstrated his underlying interstitial fibrosis, there is also possible superimposed left lower lobe infiltrate. CBC on arrival showed a WBC count 11, hemoglobin 15.2, hematocrit 47.3, platelets 250. CMP on arrival is unremarkable. Troponin was 0.015. ECG shows normal sinus rhythm without any obvious acute ischemic changes. There are chronic q wave changes in II, III, AVF; right axis deviation. NT proBNP not significantly elevated for age at 757. Procalcitonin level was low at 0.06. Negative for influenza, RSV, COVID-19. Patient was empirically started on azithromycin and Rocephin. Afebrile. Patient is hemodynamically stable. On today's evaluation of 06/26/2023, the patient continues to be short of breath although slightly improved compared to yesterday. Nevertheless, the patient is still having exertional hypoxemia. The patient is on a pulse ox is around 87%. The patient is currently on 2 L of oxygen by nasal cannula. No new complaints otherwise for now. Remains on bronchodilators. Remains on steroids. The patient's pro-calcitonin level is at 0.06. Troponins are negative. No altered mentation. No pleurisy. No hemoptysis. No edema in lower extremities. No chest pain at this point in time. Overall condition is stable. On today's evaluation of 06/27/2023 the patient is still having difficulties in breathing and some exertional hypoxemia. Pulse ox is dropping down to the low 80s while him being on 2 L of Oxymizer nasal cannula and this is unusual for the patient. He does recover with rest. Echocardiogram showed some segmental wall motion of the mouth is related to her previous DE. Left ejection fraction is well-preserved. The patient remains on bronchodilators. The patient remains on steroids. Zithromax was also added was added as an empiric antibiotic coverage. White cell count is higher at 29. D-dimer is at 0.24. Hemoglobin is at 14. BUN is at 80 with a creatinine of 0.5 and sodium level is at 138. On 06/28/2023, the patient is being seen for a follow-up. Still having exertional dyspnea and hypoxemia. I reviewed the CAT scan of the chest was done yesterday. There is chronic fibrosis in addition to that there is some increased interstitial changes peripherally in the lung bases. This can be potentially a superinfection or progression of his underlying pulmonary fibrosis. Patient is on Zithromax. I added Rocephin. Remains on O2 at 2 L/m nasal cannula. On 06/29/2023, the patient is essentially unchanged. He is still having some exertional dyspnea and fatigue. He is also having exertional hypoxemia. He is currently on 3 L of oxygen by nasal cannula. He developed some leukocytosis with a white second as high as 29. Subsequent white cell count dropped down to 24 with a hemoglobin of 14. BUN is at 23 with a creatinine of 0.6. No new complaints otherwise for now is on 3 L with a pulse ox of 96%. The patient is seen today 06/30/2023 in follow-up on the medical floor. He is currently sitting up in a chair at the bedside. Awake and alert in no acute distress. Maintaining O2 saturations in the 90s on 3 L/m per nasal cannula. He was having episodes of chest pain yesterday that was resolved with nitroglycerin. Cardiology is following. The plan is for transfer to cardiac stepdown unit and cardiac catheterization tomorrow. His Xarelto was discontinued and he was initiated on a heparin drip. Sputum culture revealed no growth. Blood cultures revealed no growth. His pro-calcitonin was 0.06. Ceftriaxone to be discontinued. He is continued on bronchodilators, Solu- Medrol. White count 22.8. Hemoglobin 13.8. Platelets 301. Sodium 133. Potassium 3.7. Bicarb 23. BUN 23. Creatinine 0.8. Glucose 132. Troponins have been negative. Chest x-ray shows no significant change compared to previous. Fibrotic changes noted. Objective - Vital Signs Vital signs: Vital Signs Temp 98.0 F 06/30/23 11:58 Pulse 71 06/30/23 11:58 Resp 16 06/30/23 11:58 BP 133/75 06/30/23 11:58 Pulse Ox 91 L 06/30/23 11:58 FiO2 Intake & Output 06/29/23 06/30/23 06/30/23 18:59 06:59 18:59 Intake Total 50 600 Balance 50 600 Intake: Intake, IV Titration 50 Amount cefTRIAXone 1 gm In 50 Sodium Chloride 0.9% 50 ml @ 100 mls/hr IVPB Q24HR [facility] Rx#:[id number] Oral 600 Other: Voiding Method Toilet Toilet Toilet # Voids 2 - Exam GENERAL EXAM: Alert, pleasant 72-year-old male, on 3 L nasal cannula, fairly comfortable in no apparent distress. HEAD: Normocephalic. EYES: Normal reaction of pupils, equal size. NOSE: Clear with pink turbinates. THROAT: No erythema or exudates. NECK: No masses, no JVD. CHEST: No chest wall deformity. LUNGS: Equal air entry with coarse crackles in the posterior bases. CVS: S1 and S2 normal with no audible murmur, regular rhythm. ABDOMEN: No hepatosplenomegaly, normal bowel sounds, no guarding or rigidity. SPINE: No scoliosis or deformity SKIN: No rashes CENTRAL NERVOUS SYSTEM: No focal deficits, tone is normal in all 4 extremities. EXTREMITIES: There is no peripheral edema. No clubbing, no cyanosis. Peripheral pulses are intact. - Labs CBC & Chem 7: 06/30/23 10:32 06/30/23 07:18 Labs: Abnormal Lab Results - Last 24 Hours (Table) 06/29/23 06/29/23 06/30/23 Range/Units 18:48 22:32 02:33 WBC (3.8-10.6) k/uL Neutrophils # (1.3-7.7) k/uL Lymphocytes # (1.0-4.8) k/uL Monocytes # (0-1.0) k/uL Sodium (135-145) mmol/L BUN/Creatinine Ratio (12.00-20.00) Ratio Glucose (70-110) mg/dL Calcium (8.7-10.3) mg/dL CK-MB (CK-2) 3.7 H 3.9 H 3.5 H (0.0-3.4) ng/mL 06/30/23 06/30/23 06/30/23 Range/Units 07:18 07:18 10:32 WBC 21.9 H 22.8 H (3.8-10.6) k/uL Neutrophils # 19.8 H 21.0 H (1.3-7.7) k/uL Lymphocytes # 0.8 L 0.6 L (1.0-4.8) k/uL Monocytes # 1.1 H (0-1.0) k/uL Sodium 133 L (135-145) mmol/L BUN/Creatinine Ratio 29.12 H (12.00-20.00) Ratio Glucose 132 H (70-110) mg/dL Calcium 8.1 L (8.7-10.3) mg/dL CK-MB (CK-2) (0.0-3.4) ng/mL Microbiology - Last 24 Hours (Table) 06/27/23 16:17 Gram Stain - Final Sputum Sputum Culture - Final 06/24/23 14:10 Blood Culture - Final Blood 06/24/23 14:10 Blood Culture - Final Blood Assessment and Plan Assessment: Acute on chronic shortness of breath related to COPD/pulmonary fibrosis exacerbation. Acute on chronic hypoxic respiratory failure currently on 3 L of oxygen by nasal cannula. Exertional dyspnea, possibly related to acute COPD exacerbation, chest x-ray shows mostly chronic fibrotic changes with a possible superimposed left lower lobe infiltrate. Negative for influenza, RSV, COVID-19. Procalcitonin level low. Pneumonia is felt to be less likely Chest pain in a patient with a known history of coronary artery disease Chronic hypoxemic respiratory failure, normally maintained on 2 L/m nasal cannula Biopsy-proven pulmonary fibrosis, UIP type. Maintained on Ofev Chronic obstructive pulmonary disease, chronically oxygen and steroid dependent Paroxysmal atrial fibrillation, chronically anticoagulated on Xarelto Chest pain/angina, resolved with when necessary nitroglycerin tabs. Coronary artery disease, status post previous CABG and subsequent PCI History of implanted permanent pacemaker Essential hypertension Hyperlipidemia Former tobacco smoker Plan: The patient was seen and evaluated Chest x-ray, labs and medications reviewed Plan is for transfer [facility] Plan is for cardiac catheterization tomorrow Xarelto on hold, heparin drip initiated Titrate the FiO2 as tolerated We'll continue to follow I have personally seen and examined the patient, performed the documentation and the assessment and plan as written. Number of minutes spent on the visit: 10.
[2023-06-30 16:57] LABS: Glucose,Whole Blood 111 mg/dL (70-110)
--- NOTE | 2023-06-30 17:57 | P.PN ---
Progress Note - Text Progress Note Date: 06/30/23 Chief Complaint: Short of breath This is a pleasant 72-year-old, follows with Dr. Emilia Bob. 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 [employer] Dr. Farias. Normally uses 2 L of oxygen at night. Sometimes excessive activity in the daytime. About a week ago patient developed 40 to describe neck: Neck symptoms the runny nose. Subsequently's been noticing that is getting increasingly short of breath example going up the stairs. And oxygen pulse ox dropped down to 70-82%. No cough. No fever no chills. Just tired. Negative self COVID negative test. Patient had 3 bouts of COVID 19 2020. Patient at that time and received BAM. June 25: Up in a chair. at the bedside. Did desaturate going to the bathroom. Changed to Perforomist and nebulized steroids. IV steroids to continue. Follow with pulmonary. Discussed. Seen by cardiology. Increased Im dur. Added Ranexa. June 30: I resumed care of the patient today. Up in a chair. He does some chest pain yesterday resolved by nitro.. Seen by cardiology. Plan for cardiac catheterization. at the bedside. Active Medications Acetaminophen (Acetaminophen Tab 325 Mg Tab) 650 mg PO Q6H PRN PRN Reason: Pain Albuterol Sulfate (Albuterol Nebulized 2.5 Mg/3 Ml) 2.5 mg INHALATION RT-Q4H PRN PRN Reason: Shortness Of Breath Or Wheezing Last Admin: 06/29/23 18:16 Dose: 2.5 mg Albuterol/Ipratropium (Ipratropium-Albuterol 3 Ml Neb) 3 ml INHALATION RT-QID PRN PRN Reason: Shortness Of Breath Last Admin: 06/30/23 08:44 Dose: 3 ml Alprazolam (Alprazolam 0.25 Mg Tab) 0.25 mg PO Q6HR PRN PRN Reason: Mild Anxiety Alprazolam (Alprazolam 0.5 Mg Tab) 0.5 mg PO Q6HR PRN PRN Reason: Moderate Anxiety Aspirin (Aspirin 325 Mg Tab) 325 mg PO ONCE ONE Stop: 07/01/23 05:01 Aspirin (Aspirin 81 Mg) 81 mg PO DAILY [facility] Atorvastatin Calcium (Atorvastatin 80 Mg Tab) 80 mg PO HS [facility] Atorvastatin Calcium (Atorvastatin 80 Mg Tab) 80 mg PO ONCE ONE Stop: 07/01/23 05:01 Budesonide (Budesonide 1 Mg/2 Ml Nebu) 1 mg INHALATION RT-BID [facility] Last Admin: 06/30/23 08:44 Dose: 1 mg Bupropion HCl (Bupropion Sr 150 Mg Tablet.Er) 150 mg PO BID [facility] Last Admin: 06/30/23 09:01 Dose: 150 mg Calcium Carbonate/Glycine (Calcium Carbonate 500 Mg Chewable) 1,000 mg PO Q4HR PRN PRN Reason: Dyspepsia Clopidogrel Bisulfate (Clopidogrel 75 Mg Tab) 75 mg PO DAILY [facility] Last Admin: 06/30/23 09:01 Dose: 75 mg Ferrous Sulfate (Ferrous Sulfate 325 Mg Tab) 325 mg PO DAILY [facility] Last Admin: 06/30/23 09:01 Dose: 325 mg Formoterol Fumarate (Formoterol Fumarate 20 Mcg/2 Ml Nebu) 20 mcg INHALATION RT-BID [facility] Last Admin: 06/30/23 08:43 Dose: 20 mcg Gabapentin (Gabapentin 300 Mg Cap) 300 mg PO BID [facility] Last Admin: 06/30/23 09:01 Dose: 300 mg Heparin Sodium (Porcine) (Heparin Sodium 1,000 Un/Ml (10ml Vl)) 0 unit IV PER PROTOCOL PRN; Protocol PRN Reason: Low PTT Heparin Sodium/Sodium Chloride (25,000 unit/ Sodium Chloride) 250 mls @ 7.62 mls/hr IV .Q24H [facility]; Protocol Last Admin: 06/30/23 11:48 Dose: 12 units/kg/hr, 7.62 mls/hr Heparin Sodium (Porcine) 10, (000 unit/ Sodium Chloride) 1,001 mls @ 999 mls/hr IRRIGATION ONCE PRN PRN Reason: INTRA-OP Stop: 07/01/23 23:00 Sodium Chloride 1,000 ml/ IV (Solution) 1,000 mls @ 63.503 mls/hr IV .[id number] [facility] Heparin Sodium (Porcine) 2,500 (unit/ Sodium Chloride) 250.5 mls @ 250 mls/hr IRRIGATION ONCE PRN PRN Reason: INTRA-OP Stop: 07/01/23 23:00 Lactulose (Lactulose 20 Gm/30 Ml Cup) 20 gm PO DAILY PRN PRN Reason: Constipation Last Admin: 06/28/23 10:17 Dose: 20 gm Lisinopril (Lisinopril 2.5 Mg Tab) 2.5 mg PO HS [facility] Last Admin: 06/29/23 20:27 Dose: 2.5 mg Loratadine (Loratadine 10 Mg Tab) 10 mg PO DAILY PRN PRN Reason: Allergy Symptoms Lorazepam (Lorazepam 0.5 Mg Tab) 0.5 mg PO Q6HR PRN PRN Reason: Anxiety Melatonin (Melatonin 3 Mg Tablet) 3 mg PO HS PRN PRN Reason: Insomnia Last Admin: 06/29/23 20:27 Dose: 3 mg Methylprednisolone Sodium Succinate (Methylprednisolone Sod Succi 125 Mg/2 Ml Vial) 60 mg IV Q6HR [facility] Last Admin: 06/30/23 11:45 Dose: 60 mg Metoprolol Tartrate (Metoprolol Tartrate 50 Mg Tab) 50 mg PO BID [facility] Last Admin: 06/30/23 09:01 Dose: 50 mg Miscellaneous Information (Pneumonia Protocol Utilized 1 Each Misc) 1 each PO ONCE PRN PRN Reason: Per Protocol Naloxone HCl (Naloxone 0.4 Mg/Ml 1 Ml Vial) 0.2 mg IV Q2M PRN PRN Reason: Opioid Reversal Nitroglycerin (Nitroglycerin Sl Tabs 0.4 Mg Tab) 0.4 mg SUBLINGUAL Q5M PRN PRN Reason: Chest Pain Last Admin: 06/29/23 17:52 Dose: 0.4 mg Nitroglycerin (Nitroglycerin Oint 1 Inch/Gm Packet) 0.5 inch TOPICAL Q6HR [facility] Last Admin: 06/30/23 11:52 Dose: Not Given Patient's Own ( Nintedanib Esylate [ Ofev] 150 Mg Capsule ) 150 mg PO BID [facility] Last Admin: 06/30/23 09:02 Dose: Not Given Ondansetron HCl (Ondansetron 4 Mg/2 Ml Vial) 4 mg IVP Q8HR PRN PRN Reason: Nausea And Vomiting Pantoprazole Sodium (Pantoprazole 40 Mg Tablet) 40 mg PO DAILY [facility] Last Admin: 06/30/23 09:01 Dose: 40 mg Polyethylene Glycol (Polyethylene Glycol 3350 17 Gm Powd.Pack) 17 gm PO HS PRN PRN Reason: Constipation Last Admin: 06/26/23 08:20 Dose: 17 gm Ranolazine (Ranolazine 500 Mg Tab.Er.12h) 1,000 mg PO Q12HR [facility] Past medical history to include: Atrial fibrillation, CAD, COPD, GERD, hyperlipidemia, hypertension, osteoarthritis, COVID 19, bradycardia with pacemaker, lumbar disc disorder, ventral hernia, pulmonary fibrosis, nocturnal oxygen, CAD with stent and coronary bypass in 2004 Social history: . 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 Smoked for about 48 years since the age of 17 stopped in 2016. Alcohol rarely. Physical examination: VITAL SIGNS: 98, 71, 16, 133/75, 91% on 3 L GENERAL: Up in a chair EYES: Pupils equal. Conjunctiva normal. HEENT: External appearance of nose and ears normal, oral cavity grossly normal. NECK: JVD not raised; masses not palpable. HEART: First and second heart sounds are normal; no edema. LUNGS: Respiratory rate increased; decreased breath sound some crackles. ABDOMEN: Soft, nontender, liver spleen not palpable, no masses palpable. PSYCH: Alert and oriented x3; mood and affect normal. MUSCULOSKELETAL:No Clubbing/cyanosis;muscles-grossly intact. OA INVESTIGATIONS, reviewed in the clinical context: June 30: White count 22.8 hemoglobin 13.8 potassium 3.7 creatinine 0.8 Chest CTA: Pleural calcifications. No pulmonary embolism. 2-D echocardiogram: Hypokinetic inferior wall. Mild to moderate mitral regurgitation, pulmonic regurgitation 5%. Troponin I less than 0.012 Procalcitonin 0.06. Urine Legionella antigen: Negative White count 11.0 hemoglobin 15.2 platelets 250 potassium 4.1 BUN 11 creatinine 0.67 ProBNP 755 Troponin I 0.015 Influenza type A, B, RSV, COVID-19 PCR: Noninjected EKG tracing personally reviewed by me-no sinus rhythm. Nonspecific ST-T wave changes. Chest x-ray film personally reviewed by me-hyperinflation. Some basal chronic changes. Pacemaker. Assessment plan: -Acute shortness of breath or loss for 5 days with increasing hypoxia. Patient had cold-like symptoms about a week ago. Finding is started having increasing shortness of breath and hypoxia with activity. Most likely a combination of exacerbation of pulmonary fibrosis and COPD. Cardiac ischemia to be considered.: Slow to respond -Anterior chest wall pain with inferior wall hypokinesis on 2-D echo.: Unstable angina Negative troponin. Pending cardiac catheterization by cardiology -Acute on chronic hypoxic respiratory failure, multifactorial: Oxygen supplement -Acute COPD exacerbation, and a previous smoker: Slow to respond DuoNeb. IV Solu-Medrol -Chronic pulmonary fibrosis possibly acute exacerbation of symptoms precipitated by viral infection IV Solu-Medrol -Coronary artery disease prior history of coronary bypass and stent Consult cardiology Imdur increased to 60 mg a day. Ranexa 5 mg twice daily added. -Essential hypertension Metoprolol 50 mg twice a day, Zestril 2.5 mg daily at bedtime, Imdur 30 mg a day -Depression otherwise specified Wellbutrin SR 150 mg twice a day -Paroxysmal atrial fibrillation, currently sinus rhythm Xarelto, Lopressor Discussed . Pending cardiac catheterization. Past Medical History Past Medical History: Atrial Fibrillation, Coronary Artery Disease (CAD), COPD, GERD/Reflux, Hyperlipidemia, Hypertension, Musculoskeletal Disorder, Osteoarthritis (OA), Pneumonia, Respiratory Disorder Additional Past Medical History / Comment(s): Hx Covid 04/2021 with antibody treatment, Bradycardia with pacemaker, lumbar disc disorder, small hiatal hernia, ventral hernia, hx anemia, hx hemmorrhoids with bleeding, pulmonary fibrosis dx in 2021, home oxygen History of Any Multi-Drug Resistant Organisms: None Reported Past Surgical History: Coronary Bypass/CABG, Heart Catheterization, Heart Catheterization With Stent, Hernia Repair, Orthopedic Surgery, Pacemaker Additional Past Surgical History / Comment(s): Vasectomy, 3 vessel CABG 2004, BILATERAL CATARACT, VASECTOMY, BONE INFUSION MIDDLE LEFT FINGER CRUSHING INJURY, right knee arthroscopy, [employer] pacemaker placed 11/04/16, 3 stents to Circ 12/16/16, ventricular lead replacement 08/21/2018, hematoma evacuation from pacemaker site 08/23/2018. Past Anesthesia/Blood Transfusion Reactions: No Reported Reaction Date of Last Stent Placement:: 12/16/16 Type of Cardiac Device: Permanent Pacemaker Device Placement Date:: 11/04/16 Past Psychological History: No Psychological Hx Reported Additional Psychological History / Comment(s): Pt resides with his spouse. 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 He has a nebulizer. Has oxygen at home. Still drives. Smoking Status: Former smoker Past Alcohol Use History: Rare Additional Past Alcohol Use History / Comment(s): Quit smoking 16, smoked since age 17. Past Drug Use History: None Reported - Past Family History Father Family Medical History: Cancer Additional Family Medical History / Comment(s): . Mother Family Medical History: Coronary Artery Disease (CAD) Additional Family Medical History / Comment(s): HEART PROBLEMS. Sister(s) Family Medical History: Cancer Additional Family Medical History / Comment(s): Lymph nodes. Brother(s) Family Medical History: Cancer
[2023-06-30] MEDS: methylPREDNISolone SOD SUCCI 40 MG/ML 1 ML VIAL IV SCH (20:12)
[2023-06-30] MEDS: ATORVASTATIN 80 MG TAB PO SCH (20:13)
[2023-06-30 20:28] LABS: Glucose,Whole Blood 182 mg/dL (70-110)
[2023-07-01] MEDS: NITROGLYCERIN OINT 1 INCH/GM PACKET TOPICAL SCH ×5 (00:16→23:44)
[2023-07-01] MEDS: SODIUM CHLORIDE 0.9% 1,000 ML in EMPTY BAG 1 BAG IV SCH ×3 (00:16→21:44)
[2023-07-01] MEDS ORDERED: ATORVASTATIN 80 MG TAB PO ONE (05:00)
[2023-07-01] MEDS ORDERED: ASPIRIN 325 MG TAB PO ONE (05:00)
[2023-07-01] MEDS: PATIENT'S OWN (Nintedanib Esylate [Ofev] 150 MG Capsule) PO SCH ×2 (05:56→22:53)
[2023-07-01 06:00] LABS: HGB 15.1 gm/dL (13.0-17.5); MCH 29.9 pg (25.0-35.0); MCHC 31.5 g/dL (31.0-37.0); Mean Platelet Volume 7.4; Platelet Count 344 k/uL (150-450); RBC 5.05 m/uL (4.30-5.90); RDW 14.5 % (11.5-15.5); WBC 36.1 k/uL (3.8-10.6)
[2023-07-01 06:04] LABS: INR 1.1 (<1.2); Partial Thromboplastin Time 62.2 sec (22.0-30.0); Prothrombin Time 11.1 sec (9.0-12.0)
[2023-07-01] MEDS: FERROUS SULFATE 325 MG TAB PO SCH (06:06)
[2023-07-01] MEDS: GABAPENTIN 300 MG CAP PO SCH ×2 (06:07→21:42)
[2023-07-01] MEDS: RANOLAZINE 500 MG TAB.ER.12H PO SCH ×2 (06:08→21:42)
[2023-07-01] MEDS: METOPROLOL TARTRATE 50 MG TAB PO SCH ×2 (06:08→21:42)
[2023-07-01] MEDS: buPROPion SR 150 MG TABLET.ER PO SCH ×2 (06:08→21:43)
[2023-07-01] MEDS: PANTOPRAZOLE 40 MG TABLET PO SCH (06:09)
[2023-07-01] MEDS: CLOPIDOGREL 75 MG TAB PO SCH (06:09)
[2023-07-01] MEDS: methylPREDNISolone SOD SUCCI 40 MG/ML 1 ML VIAL IV SCH ×3 (06:09→21:42)
[2023-07-01] MEDS ORDERED: HEPARIN SODIUM,PORCINE 10,000 UNIT in SODIUM CHLORIDE 0.9% 1,000 ML IRRIGATION PRN (07:00)
[2023-07-01] MEDS ORDERED: HEPARIN SODIUM,PORCINE (1 ML) 2,500 UNIT in SODIUM CHLORIDE 0.9% 250 ML IRRIGATION PRN (07:00)
[2023-07-01] MEDS: BUDESONIDE 1 MG/2 ML NEBU INHALATION SCH ×2 (08:04→21:25)
[2023-07-01] MEDS: IPRATROPIUM-ALBUTEROL 3 ML NEB INHALATION PRN ×3 (08:04→15:30)
[2023-07-01] MEDS: FORMOTEROL FUMARATE 20 MCG/2 ML NEBU INHALATION SCH ×2 (08:04→21:25)
[2023-07-01 09:35] LABS: Lymphocytes # (M) 2.53 k/uL (1.0-4.8); Monocytes # (M) 1.81 k/uL (0-1.0); Myelocytes # (M) 1.08 k/uL (0); Myelocytes % 3 %; Neutrophils # (M) 31.41 k/uL (1.3-7.7); Neutrophils % (M) 87 %; Nucleated Red Blood Cells 0 /100 WBC (0-0); Total Cells Counted 200
[2023-07-01 11:35] LABS: Glucose,Whole Blood 97 mg/dL (70-110)
--- NOTE | 2023-07-01 13:40 | P.PN ---
Subjective Progress Note Date: 07/01/23 Principal diagnosis: Acute on chronic hypoxic respiratory failure, multifactorial I am seeing this patient in new consultation today 06/25/2023 after the patient presented with worsening exertional dyspnea that started approximately 1 week ago. Patient is a 72-year-old white male with past medical history significant for COPD, pulmonary fibrosis, chronic oxygen dependence maintained on 2 L/m nasal cannula at bedtime, atrial fibrillation anticoagulated on Xarelto, coronary artery disease with previous CABG, he does have an implanted permanent pacemaker, hypertension, hyperlipidemia, among other things. Patient does follow in the pulmonary office with Dr. Farias. He does have moderate COPD with an FEV1 69% of predicted. He is chronically oxygen and steroid dependent. He utilizes a combination of Wixela and as needed albuterol. He also has biopsy- proven pulmonary fibrosis, UIP type. He is maintained on Ofev. Patient presented to emergency room yesterday morning complaining of worsening exertional dyspnea. He does have chronic dyspnea related to his pulmonary diseases. He states that his shortness of breath worsens with minimal exertion including walking to the bathroom. While climbing the stairs in his home, he says that his pulse oximeter level dropped to 70% while on supplemental 2 L home O2 yesterday. He does not normally wear his oxygen 14/04, but has been lately. He admits to URI like symptoms approximately 1 week ago. Denies any fevers, chills, myalgias, cough. He does admit severe substernal chest pain last week that resolved with 2 nitroglycerin tabs. He does have a significant cardiac history. Denies recent stress test. He denies any current chest pain, heart palpitations, heaviness, syncope, or lower extremities swelling. Patient is currently lying in bed, on 2 L/m nasal cannula, in no acute distress. Chest x- ray redemonstrated his underlying interstitial fibrosis, there is also possible superimposed left lower lobe infiltrate. CBC on arrival showed a WBC count 11, hemoglobin 15.2, hematocrit 47.3, platelets 250. CMP on arrival is unremarkable. Troponin was 0.015. ECG shows normal sinus rhythm without any obvious acute ischemic changes. There are chronic q wave changes in II, III, AVF; right axis deviation. NT proBNP not significantly elevated for age at 755. Procalcitonin level was low at 0.06. Negative for influenza, RSV, COVID-19. Patient was empirically started on azithromycin and Rocephin. Afebrile. Pat ient is hemodynamically stable. On today's evaluation of 06/26/2023, the patient continues to be short of breath although slightly improved compared to yesterday. Nevertheless, the patient is still having exertional hypoxemia. The patient is on a pulse ox is around 87%. The patient is currently on 2 L of oxygen by nasal cannula. No new complaints otherwise for now. Remains on bronchodilators. Remains on steroids. The patient's pro-calcitonin level is at 0.06. Troponins are negative. No altered mentation. No pleurisy. No hemoptysis. No edema in lower extremities. No chest pain at this point in time. Overall condition is stable. On today's evaluation of 06/27/2023 the patient is still having difficulties in breathing and some exertional hypoxemia. Pulse ox is dropping down to the low 80s while him being on 2 L of Oxymizer nasal cannula and this is unusual for the patient. He does recover with rest. Echocardiogram showed some segmental wall motion of the mouth is related to her previous TN. Left ejection fraction is well-preserved. The patient remains on bronchodilators. The patient remains on steroids. Zithromax was also added was added as an empiric antibiotic coverage. White cell count is higher at 29. D-dimer is at 0.24. Hemoglobin is at 14. BUN is at 80 with a creatinine of 0.5 and sodium level is at 138. On 06/28/2023, the patient is being seen for a follow-up. Still having exertional dyspnea and hypoxemia. I reviewed the CAT scan of the chest was done yesterday. There is chronic fibrosis in addition to that there is some increased interstitial changes peripherally in the lung bases. This can be potentially a superinfection or progression of his underlying pulmonary fibrosis. Patient is on Zithromax. I added Rocephin. Remains on O2 at 2 L/m nasal cannula. On 06/29/2023, the patient is essentially unchanged. He is still having some exertional dyspnea and fatigue. He is also having exertional hypoxemia. He is currently on 3 L of oxygen by nasal cannula. He developed some leukocytosis with a white second as high as 29. Subsequent white cell count dropped down to 24 with a hemoglobin of 14. BUN is at 23 with a creatinine of 0.6. No new complaints otherwise for now is on 3 L with a pulse ox of 96%. The patient is seen today 06/30/2023 in follow-up on the medical floor. He is currently sitting up in a chair at the bedside. Awake and alert in no acute distress. Maintaining O2 saturations in the 90s on 3 L/m per nasal cannula. He was having episodes of chest pain yesterday that was resolved with nitroglycerin. Cardiology is following. The plan is for transfer to cardiac stepdown unit and cardiac catheterization tomorrow. His Xarelto was discontinued and he was initiated on a heparin drip. Sputum culture revealed no growth. Blood cultures revealed no growth. His pro-calcitonin was 0.06. Ceftriaxone to be discontinued. He is continued on bronchodilators, Solu- Medrol. White count 22.8. Hemoglobin 13.8. Platelets 301. Sodium 133. Potassium 3.7. Bicarb 23. BUN 23. Creatinine 0.8. Glucose 132. Troponins have been negative. Chest x-ray shows no significant change compared to previous. Fibrotic changes noted. Patient was seen and reevaluated today on 07/01/2023, patient remains on 3 L nasal cannula, O2 saturations 90% on 3 L, patient has shortness of breath with any activity. He does have history of underlying idiopathic pulmonary fibrosis, biopsy proven. Patient is being considered for cardiac catheterization to be done by cardiology, he has apparently intermittent episodes of chest pain/unstable angina. Patient had a previous history of CABG and PTCA. He also has history of paroxysmal atrial fibrillation and sick sinus syndrome. Previous permanent pacemaker implantation. Not to mention the patient has COPD and underlying pulmonary fibrosis. Objective - Vital Signs Vital signs: Vital Signs Temp 98.3 F 07/01/23 11:35 Pulse 64 07/01/23 11:37 Resp 17 07/01/23 11:35 BP 133/70 07/01/23 11:35 Pulse Ox 90 L 07/01/23 11:35 FiO2 Intake & Output 06/30/23 07/01/23 07/01/23 18:59 06:59 18:59 Intake Total 157.100 110 Output Total 100 Balance -100 157.100 110 Weight 63.503 kg Intake: Intake, IV Titration 157.100 Amount Heparin Sod,Pork in 0.45% 157.100 NaCl 25,000 unit In 0.45 % NaCl 1 250ml.bag @ 12 UNITS/KG/HR 7.62 mls/hr IV .Q24H [facility] Rx#: [id number] Oral 110 Output: Urine 100 Other: Voiding Method Toilet Toilet Toilet # Voids 1 - Exam Physical Exam: Revealed 72-year-old white male in no distress on 3 L/m Head: Atraumatic normocephalic HEENT:[Neck is supple.] [No neck masses.] [No thyromegaly.] [No JVD.] Chest: [Fine Velcro rales and crackles at the bases Cardiac Exam: [Normal S1 and S2, no S3 gallop, no murmur.] Abdomen: [Soft, nontender, no megaly, no rebound, no guarding, normal bowel sounds.] Extremities: [No clubbing, no edema, no cyanosis.] Neurological Exam: [No focal neurologic deficit.] Alert and oriented 3 Psychiatric: Normal mood, affect and normal status examination. Skin: No rash - Labs CBC & Chem 7: 07/01/23 05:27 06/30/23 07:18 Labs: Abnormal Lab Results - Last 24 Hours (Table) 06/30/23 06/30/23 06/30/23 Range/Units 16:56 17:42 20:27 WBC (3.8-10.6) k/uL Neutrophils # (Manual) (1.3-7.7) k/uL Monocytes # (Manual) (0-1.0) k/uL Myelocytes # (Manual) (0) k/uL APTT 37.3 H (22.0-30.0) sec POC Glucose (mg/dL) 111 H 182 H (70-110) mg/dL 07/01/23 07/01/23 07/01/23 Range/Units 01:19 05:27 05:27 WBC 36.1 H (3.8-10.6) k/uL Neutrophils # (Manual) 31.41 H (1.3-7.7) k/uL Monocytes # (Manual) 1.81 H (0-1.0) k/uL Myelocytes # (Manual) 1.08 H (0) k/uL APTT 57.2 H 62.2 H (22.0-30.0) sec POC Glucose (mg/dL) (70-110) mg/dL Assessment and Plan Assessment: Impression: Acute on chronic hypoxic respiratory failure secondary to COPD and underlying pulmonary fibrosis/UIP. Chest pain/unstable angina being addressed by cardiology and being considered for cardiac catheterization. History of coronary arteriosclerosis and previous CABG as well as PCI History of implanted permanent pacemaker Benign essential hypertension Paroxysmal atrial fibrillation Dyslipidemia Ex-smoker Recommendation: Continue oxygen and titrate accordingly Continue bronchodilators Awaiting the report on his cardiac catheterization Continue heparin We will continue to follow. Patient is definitely not a candidate for CABG considering his underlying UIP Time with Patient: Less than 30
--- NOTE | 2023-07-01 14:02 | P.PN ---
Subjective Progress Note Date: 07/01/23 History of present illness: This is a 72-year-old male patient of Dr. LIDIA Falk with past medical history of coronary artery disease disease with prior bypass surgery and PTCA, paroxysmal atrial fibrillation on Xarelto for anticoagulation, history of sick sinus syndrome with permanent pacemaker, hypertension, hyperlipidemia, COPD, pulmonary fibrosis under the care of Dr. Farias. We have been asked to evaluate the patient for coronary artery disease. Patient states that last week he had cold symptoms such as a sore throat and runny nose. On Friday he started having some difficulty breathing and on Friday he was having more shortness of breath. His states that his pulse ox is usually 94-96% during the day without oxygen but on Friday pulse ox dropped down to 86%. Patient had episode of chest pain and took 2 nitroglycerin that seemed to help. On Friday, patient called Dr. Falk and was told to monitor, follow-up with Dr. Mcdowell. Patient contacted Dr. Farias and if he worsened her continue to have trouble, coming to the emergency center so he did. Patient denies having any chest pain at this time. Patient becomes significantly dyspneic with ambulating to the bathroom with oxygen. He has been seen by pulmonary medicine for pulmonary fibrosis doubt pneumonia. EKG sinus rhythm with a right bundle branch block Chest x-ray: patchy and interstitial infiltrates mid and lower lungs persist, slightly worse on the left base. Correlate for possible underlying fibrosis with superimposed infiltrate on the left. WBC 11, hemoglobin 15.2, platelet count 250. INR 1. Electrolytes and renal function normal. Troponin negative 1. ProBNP 755. Liver function tests are normal. Lactic acid 1.4. Pro-calcitonin 0.06. Influenza A, influenza B, Legionella, RSV, Covid 19 negative. Home cardiac medications: atorvastatin 40 mg at bedtime, Plavix 75 mg daily, Imdur 30 mg daily at noon, lisinopril 2.5 mg at bedtime, Lopressor 50 mg twice daily, Nitrostat as needed, Xarelto 50 mg at supper. 12/09/2021 PCI of the mid circumflex CT oh at [facility] 11/20/2021 PCI unsuccessful to the mid circumflex. No gradient occluded LAD and nondominant RCA [place] circumflex stented at the ostium proximal portion patent, new lesion in the midportion of chronic total occlusion, ZABALA patent, SVG to OM occluded, SVG to PLF patent. Echocardiogram 12/2022 EF 50%, mild inferior wall hypokinesia, mild diastolic dysfunction. Moderate mitral regurgitation, moderate tricuspid regurgitation, moderate pulmonary hypertension. 06/26 Patient is seen today in follow-up. We increased Imdur 60 mg at noon and added Ranexa yesterday. Patient does state he had some tightness in his chest this morning with deep breathing. He denies having any tightness in his chest with ambulation. Patient did have a drop in his pulse ox on 80% this morning with ambulation. Heart rate is in the 80s and 90s, blood pressure running between 124/70 and 163/84. 06/27 Patient states that his reading is seeming to get better. He denies having any chest pain. He feels that he is ready to go home. He is currently on O2 at 2 L nasal cannula with pulse ox 93%, he's been afebrile, heart rate in the 60s, blood pressure 156/62. Echocardiogram reveals normal LV systolic function. Hypokinesis of the inferior wall suggestive prior AL. Mild to moderate mitral regurgitation. 06/30/2023 Cardiology was reconsulted to evaluate patient for chest pain. Patient examined this morning at the bedside. Patient reports he had 3 separate episodes yesterday of chest discomfort that resolved with nitro. At the time of examination this morning, patient denies chest pain or pressure. He denies shortness of breath. 07/01 Patient has been transferred to the [facility] unit from [facility]. He was initially scheduled for cardiac cath today with Dr. Sinclair and now rescheduled for tomorrow with Dr. LIDIA Falk. He denies having chest pain this mornig. Patient has slight lower extremity edema and BNP ordered which was 1060 which is about normal for his age. IV fluids discontinued. Noted white count 36.1. PHYSICAL EXAM: VITAL SIGNS: Reviewed. GENERAL: Well-developed in no acute distress. NECK: Supple. No JVD or thyromegaly LUNGS: Respirations even and unlabored. Lungs essentially clear to auscultation bilaterally. HEART: Regular rate and rhythm. S1 and S2 heard. EXTREMITIES: Normal range of motion. No clubbing or cyanosis. Peripheral pulses intact. No lower extremity edema ASSESSMENT: Chest pain/[place] Acute on chronic hypoxic respiratory failure Coronary artery disease with prior bypass surgery and [employer] Paroxysmal atrial fibrillation History of sick sinus syndrome status post permanent pacemaker Hypertension Hyperlipidemia COPD Pulmonary fibrosis PLAN: Hold Xarelto. Continue IV heparin Continue nitro paste. Imdur on hold. Increase Ranexa to 1000mg twice a day Continue Aspirin 81 mg daily Continue additional cardiac medications Nothing by mouth at midnight Patient to undergo cardiac catheterization with Dr. Falk tomorrow. Further recommendations pending patient's course Nurse practitioner note has been reviewed by physician. Signing provider agrees with the documented findings, assessment, and plan of care. Objective - Vital Signs Vital signs: Vital Signs Temp 98.3 F 07/01/23 08:00 Pulse 60 07/01/23 08:16 Resp 16 07/01/23 08:00 BP 164/70 07/01/23 08:00 Pulse Ox 95 07/01/23 08:00 FiO2 Intake & Output 06/30/23 07/01/23 07/01/23 18:59 06:59 18:59 Intake Total 157.100 Output Total 100 Balance -100 157.100 Weight 63.503 kg Intake: Intake, IV Titration 157.100 Amount Heparin Sod,Pork in 0.45% 157.100 NaCl 25,000 unit In 0.45 % NaCl 1 250ml.bag @ 12 UNITS/KG/HR 7.62 mls/hr IV .Q24H [facility] Rx#: [id number] Output: Urine 100 Other: Voiding Method Toilet Toilet Toilet # Voids 1 - Labs CBC & Chem 7: 07/01/23 05:27 06/30/23 07:18 Labs: Abnormal Lab Results - Last 24 Hours (Table) 06/30/23 06/30/23 06/30/23 Range/Units 07:18 10:32 16:56 WBC 22.8 H (3.8-10.6) k/uL Neutrophils # 21.0 H (1.3-7.7) k/uL Neutrophils # (Manual) (1.3-7.7) k/uL Lymphocytes # 0.6 L (1.0-4.8) k/uL Monocytes # (Manual) (0-1.0) k/uL Myelocytes # (Manual) (0) k/uL APTT (22.0-30.0) sec Sodium 133 L (135-145) mmol/L BUN/Creatinine Ratio 29.12 H (12.00-20.00) Ratio Glucose 132 H (70-110) mg/dL POC Glucose (mg/dL) 111 H (70-110) mg/dL Calcium 8.1 L (8.7-10.3) mg/dL 06/30/23 06/30/23 07/01/23 Range/Units 17:42 20:27 01:19 WBC (3.8-10.6) k/uL Neutrophils # (1.3-7.7) k/uL Neutrophils # (Manual) (1.3-7.7) k/uL Lymphocytes # (1.0-4.8) k/uL Monocytes # (Manual) (0-1.0) k/uL Myelocytes # (Manual) (0) k/uL APTT 37.3 H 57.2 H (22.0-30.0) sec Sodium (135-145) mmol/L BUN/Creatinine Ratio (12.00-20.00) Ratio Glucose (70-110) mg/dL POC Glucose (mg/dL) 182 H (70-110) mg/dL Calcium (8.7-10.3) mg/dL 07/01/23 07/01/23 Range/Units 05:27 05:27 WBC 36.1 H (3.8-10.6) k/uL Neutrophils # (1.3-7.7) k/uL Neutrophils # (Manual) 31.41 H (1.3-7.7) k/uL Lymphocytes # (1.0-4.8) k/uL Monocytes # (Manual) 1.81 H (0-1.0) k/uL Myelocytes # (Manual) 1.08 H (0) k/uL APTT 62.2 H (22.0-30.0) sec Sodium (135-145) mmol/L BUN/Creatinine Ratio (12.00-20.00) Ratio Glucose (70-110) mg/dL POC Glucose (mg/dL) (70-110) mg/dL Calcium (8.7-10.3) mg/dL Microbiology - Last 24 Hours (Table) 06/27/23 16:17 Gram Stain - Final Sputum Sputum Culture - Final
[2023-07-01] MEDS: HEPARIN SOD,PORK IN 0.45% NACL 25,000 UNIT in 0.45% NACL 1 250ML.BAG IV SCH (16:33)
--- NOTE | 2023-07-01 19:43 | P.PN ---
Progress Note - Text Progress Note Date: 07/01/23 Chief Complaint: Short of breath This is a pleasant 72-year-old, follows with Dr. Emilia Bob. 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 [employer] Dr. Farias. Normally uses 2 L of oxygen at night. Sometimes excessive activity in the daytime. About a week ago patient developed 40 to describe neck: Neck symptoms the runny nose. Subsequently's been noticing that is getting increasingly short of breath example going up the stairs. And oxygen pulse ox dropped down to 70-82%. No cough. No fever no chills. Just tired. Negative self COVID negative test. Patient had 3 bouts of COVID 19 2020. Patient at that time and received BAM. June 25: Up in a chair. at the bedside. Did desaturate going to the bathroom. Changed to Perforomist and nebulized steroids. IV steroids to continue. Follow with pulmonary. Discussed. Seen by cardiology. Increased Im dur. Added Ranexa. June 30: I resumed care of the patient today. Up in a chair. He does some chest pain yesterday resolved by nitro.. Seen by cardiology. Plan for cardiac catheterization. at the bedside. July 01: Cardiac catheterization postponed for tomorrow. Does get tired with activity. Discussed with patient daughter the bedside. On IV heparin. Active Medications Acetaminophen (Acetaminophen Tab 325 Mg Tab) 650 mg PO Q6H PRN PRN Reason: Pain Albuterol Sulfate (Albuterol Nebulized 2.5 Mg/3 Ml) 2.5 mg INHALATION RT-Q4H PRN PRN Reason: Shortness Of Breath Or Wheezing Last Admin: 06/29/23 18:16 Dose: 2.5 mg Albuterol/Ipratropium (Ipratropium-Albuterol 3 Ml Neb) 3 ml INHALATION RT-QID PRN PRN Reason: Shortness Of Breath Last Admin: 07/01/23 15:30 Dose: 3 ml Alprazolam (Alprazolam 0.25 Mg Tab) 0.25 mg PO Q6HR PRN PRN Reason: Mild Anxiety Alprazolam (Alprazolam 0.5 Mg Tab) 0.5 mg PO Q6HR PRN PRN Reason: Moderate Anxiety Aspirin (Aspirin 81 Mg) 81 mg PO DAILY RODNEY Atorvastatin Calcium (Atorvastatin 80 Mg Tab) 80 mg PO HS RODNEY Last Admin: 06/30/23 20:13 Dose: 80 mg Budesonide (Budesonide 1 Mg/2 Ml Nebu) 1 mg INHALATION RT-BID [facility] Last Admin: 07/01/23 08:04 Dose: 1 mg Bupropion HCl (Bupropion Sr 150 Mg Tablet.Er) 150 mg PO BID [facility] Last Admin: 07/01/23 06:08 Dose: 150 mg Calcium Carbonate/Glycine (Calcium Carbonate 500 Mg Chewable) 1,000 mg PO Q4HR PRN PRN Reason: Dyspepsia Clopidogrel Bisulfate (Clopidogrel 75 Mg Tab) 75 mg PO DAILY [facility] Last Admin: 07/01/23 06:09 Dose: 75 mg Ferrous Sulfate (Ferrous Sulfate 325 Mg Tab) 325 mg PO DAILY [facility] Last Admin: 07/01/23 06:06 Dose: 325 mg Formoterol Fumarate (Formoterol Fumarate 20 Mcg/2 Ml Nebu) 20 mcg INHALATION RT-BID [facility] Last Admin: 07/01/23 08:04 Dose: 20 mcg Gabapentin (Gabapentin 300 Mg Cap) 300 mg PO BID [facility] Last Admin: 07/01/23 06:07 Dose: 300 mg Heparin Sodium (Porcine) (Heparin Sodium 1,000 Un/Ml (10ml Vl)) 0 unit IV PER P ROTOCOL PRN; Protocol PRN Reason: Low PTT Heparin Sodium/Sodium Chloride (25,000 unit/ Sodium Chloride) 250 mls @ 7.62 mls/hr IV .Q24H [facility]; Protocol Last Admin: 07/01/23 16:33 Dose: 14 units/kg/hr, 8.89 mls/hr Heparin Sodium (Porcine) 10, (000 unit/ Sodium Chloride) 1,001 mls @ 999 mls/hr IRRIGATION ONCE PRN PRN Reason: INTRA-OP Stop: 07/01/23 23:00 Sodium Chloride 1,000 ml/ IV (Solution) 1,000 mls @ 63.503 mls/hr IV .[id number] [facility] Last Admin: 07/01/23 18:34 Dose: Not Given Heparin Sodium (Porcine) 2,500 (unit/ Sodium Chloride) 250.5 mls @ 250 mls/hr IRRIGATION ONCE PRN PRN Reason: INTRA-OP Stop: 07/01/23 23:00 Lactulose (Lactulose 20 Gm/30 Ml Cup) 20 gm PO DAILY PRN PRN Reason: Constipation Last Admin: 06/28/23 10:17 Dose: 20 gm Lisinopril (Lisinopril 2.5 Mg Tab) 2.5 mg PO HS [facility] Last Admin: 06/30/23 20:12 Dose: 2.5 mg Loratadine (Loratadine 10 Mg Tab) 10 mg PO DAILY PRN PRN Reason: Allergy Symptoms Lorazepam (Lorazepam 0.5 Mg Tab) 0.5 mg PO Q6HR PRN PRN Reason: Anxiety Melatonin (Melatonin 3 Mg Tablet) 3 mg PO HS PRN PRN Reason: Insomnia Last Admin: 06/29/23 20:27 Dose: 3 mg Methylprednisolone Sodium Succinate (Methylprednisolone Sod Succi 40 Mg/Ml 1 Ml Vial) 40 mg IV Q8H [facility] Last Admin: 07/01/23 12:00 Dose: 40 mg Metoprolol Tartrate (Metoprolol Tartrate 50 Mg Tab) 50 mg PO BID [facility] Last Admin: 07/01/23 06:08 Dose: 50 mg Miscellaneous Information (Pneumonia Protocol Utilized 1 Each Misc) 1 each PO ONCE PRN PRN Reason: Per Protocol Naloxone HCl (Naloxone 0.4 Mg/Ml 1 Ml Vial) 0.2 mg IV Q2M PRN PRN Reason: Opioid Reversal Nitroglycerin (Nitroglycerin Sl Tabs 0.4 Mg Tab) 0.4 mg SUBLINGUAL Q5M PRN PRN Reason: Chest Pain Last Admin: 06/29/23 17:52 Dose: 0.4 mg Nitroglycerin (Nitroglycerin Oint 1 Inch/Gm Packet) 0.5 inch TOPICAL Q6HR [facility] Last Admin: 07/01/23 17:47 Dose: 0.5 inch Patient's Own ( Nintedanib Esylate [ Ofev] 150 Mg Capsule ) 150 mg PO BID [facility] Last Admin: 07/01/23 05:56 Dose: Not Given Ondansetron HCl (Ondansetron 4 Mg/2 Ml Vial) 4 mg IVP Q8HR PRN PRN Reason: Nausea And Vomiting Pantoprazole Sodium (Pantoprazole 40 Mg Tablet) 40 mg PO DAILY [facility] Last Admin: 07/01/23 06:09 Dose: 40 mg Polyethylene Glycol (Polyethylene Glycol 3350 17 Gm Powd.Pack) 17 gm PO HS PRN PRN Reason: Constipation Last Admin: 06/26/23 08:20 Dose: 17 gm Ranolazine (Ranolazine 500 Mg Tab.Er.12h) 1,000 mg PO Q12HR RODNEY Last Admin: 07/01/23 06:08 Dose: 1,000 mg Past medical history to include: Atrial fibrillation, CAD, COPD, GERD, hyperlipidemia, hypertension, osteoarthritis, COVID 19, bradycardia with pacemaker, lumbar disc disorder, ventral hernia, pulmonary fibrosis, nocturnal oxygen, CAD with stent and coronary bypass in 2004 Social history: . 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 Smoked for about 48 years since the age of 17 stopped in 2016. Alcohol rarely. Physical examination: VITAL SIGNS: 98.4, 68, 17, 1:30/68, 90% on 3 L GENERAL: Sitting up in a bed, awake EYES: Pupils equal. Conjunctiva normal. HEENT: External appearance of nose and ears normal, oral cavity grossly normal. NECK: JVD not raised; masses not palpable. HEART: First and second heart sounds are normal; no edema. LUNGS: Respiratory rate increased; decreased breath sound some crackles. ABDOMEN: Soft, nontender, liver spleen not palpable, no masses palpable. PSYCH: Alert and oriented x3; mood and affect normal. MUSCULOSKELETAL:No Clubbing/cyanosis;muscles-grossly intact. OA INVESTIGATIONS, reviewed in the clinical context: June 30: White count 22.8 hemoglobin 13.8 potassium 3.7 creatinine 0.8 Chest CTA: Pleural calcifications. No pulmonary embolism. 2-D echocardiogram: Hypokinetic inferior wall. Mild to moderate mitral regurgitation, pulmonic regurgitation 5%. Troponin I less than 0.012 Procalcitonin 0.06. Urine Legionella antigen: Negative White count 11.0 hemoglobin 15.2 platelets 250 potassium 4.1 BUN 11 creatinine 0.67 ProBNP 755 Troponin I 0.015 Influenza type A, B, RSV, COVID-19 PCR: Noninjected EKG tracing personally reviewed by me-no sinus rhythm. Nonspecific ST-T wave changes. Chest x-ray film personally reviewed by me-hyperinflation. Some basal chronic changes. Pacemaker. Assessment plan: -Acute shortness of breath or loss for 5 days with increasing hypoxia. Patient had cold-like symptoms about a week ago. Finding is started having increasing shortness of breath and hypoxia with activity. Most likely a combination of exacerbation of pulmonary fibrosis and COPD. Cardiac ischemia to be considered.: Slow to respond -Anterior chest wall pain with inferior wall hypokinesis on 2-D echo.: Unstable angina Negative troponin. Cardiac catheterization postponed for tomorrow -IV heparin monitoring Follow PTT -Acute on chronic hypoxic respiratory failure, multifactorial: Oxygen supplement -Acute COPD exacerbation, and a previous smoker: Slow to respond DuoNeb. IV Solu-Medrol -Chronic pulmonary fibrosis possibly acute exacerbation of symptoms precipitated by viral infection IV Solu-Medrol -Coronary artery disease prior history of coronary bypass and stent Consult cardiology Imdur increased to 60 mg a day. Ranexa 5 mg twice daily added. -Essential hypertension Metoprolol 50 mg twice a day, Zestril 2.5 mg daily at bedtime, Imdur 30 mg a day -Depression otherwise specified Wellbutrin SR 150 mg twice a day -Paroxysmal atrial fibrillation, currently sinus rhythm Xarelto, Lopressor Discussed . Cardiac catheterization rescheduled to tomorrow by cardiology. IV heparin Past Medical History Past Medical History: Atrial Fibrillation, Coronary Artery Disease (CAD), COPD, GERD/Reflux, Hyperlipidemia, Hypertension, Musculoskeletal Disorder, Osteoarthritis (OA), Pneumonia, Respiratory Disorder Additional Past Medical History / Comment(s): Hx Covid 04/2021 with antibody treatment, Bradycardia with pacemaker, lumbar disc disorder, small hiatal hernia, ventral hernia, hx anemia, hx hemmorrhoids with bleeding, pulmonary fibrosis dx in 2021, home oxygen History of Any Multi-Drug Resistant Organisms: None Reported Past Surgical History: Coronary Bypass/CABG, Heart Catheterization, Heart Catheterization With Stent, Hernia Repair, Orthopedic Surgery, Pacemaker Additional Past Surgical History / Comment(s): Vasectomy, 3 vessel CABG 2004, BILATERAL CATARACT, VASECTOMY, BONE INFUSION MIDDLE LEFT FINGER CRUSHING INJURY, right knee arthroscopy, [employer] pacemaker placed 11/04/16, 3 stents to Circ 12/16/16, ventricular lead replacement 08/21/2018, hematoma evacuation from pacemaker site 08/23/2018. Past Anesthesia/Blood Transfusion Reactions: No Reported Reaction Date of Last Stent Placement:: 12/16/16 Type of Cardiac Device: Permanent Pacemaker Device Placement Date:: 11/04/16 Past Psychological History: No Psychological Hx Reported Additional Psychological History / Comment(s): Pt resides with his spouse. 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 He has a nebulizer. Has oxygen at home. Still drives. Smoking Status: Former smoker Past Alcohol Use History: Rare Additional Past Alcohol Use History / Comment(s): Quit smoking 7--16, smoked since age 17. Past Drug Use History: None Reported - Past Family History Father Family Medical History: Cancer Additional Family Medical History / Comment(s): . Mother Family Medical History: Coronary Artery Disease (CAD) Additional Family Medical History / Comment(s): HEART PROBLEMS. Sister(s) Family Medical History: Cancer Additional Family Medical History / Comment(s): Lymph nodes. Brother(s) Family Medical History: Cancer
[2023-07-01] MEDS: ATORVASTATIN 80 MG TAB PO SCH (21:42)
[2023-07-01] MEDS: ALPRAZolam 0.25 MG TAB PO PRN (23:39)
[2023-07-02] MEDS: methylPREDNISolone SOD SUCCI 40 MG/ML 1 ML VIAL IV SCH ×3 (04:29→17:26)
[2023-07-02] MEDS: NITROGLYCERIN OINT 1 INCH/GM PACKET TOPICAL SCH ×3 (04:58→17:11)
[2023-07-02] MEDS: GABAPENTIN 300 MG CAP PO SCH ×2 (06:52→20:59)
[2023-07-02] MEDS: buPROPion SR 150 MG TABLET.ER PO SCH ×2 (06:53→21:04)
[2023-07-02] MEDS: CLOPIDOGREL 75 MG TAB PO SCH (06:53)
[2023-07-02] MEDS: METOPROLOL TARTRATE 50 MG TAB PO SCH ×2 (06:53→21:00)
[2023-07-02] MEDS: FERROUS SULFATE 325 MG TAB PO SCH (06:53)
[2023-07-02] MEDS: RANOLAZINE 500 MG TAB.ER.12H PO SCH ×2 (06:53→21:00)
[2023-07-02] MEDS: PANTOPRAZOLE 40 MG TABLET PO SCH (06:53)
[2023-07-02] MEDS: PATIENT'S OWN (Nintedanib Esylate [Ofev] 150 MG Capsule) PO SCH ×2 (06:56→21:02)
[2023-07-02] MEDS: FORMOTEROL FUMARATE 20 MCG/2 ML NEBU INHALATION SCH ×2 (08:24→21:45)
[2023-07-02] MEDS: BUDESONIDE 1 MG/2 ML NEBU INHALATION SCH ×2 (08:24→21:45)
[2023-07-02] MEDS: IPRATROPIUM-ALBUTEROL 3 ML NEB INHALATION PRN ×4 (08:25→21:45)
[2023-07-02] MEDS ORDERED: ASPIRIN 325 MG TAB PO STA (09:59)
[2023-07-02] MEDS: ASPIRIN 81 MG PO SCH (10:05)
[2023-07-02] MEDS ORDERED: VERAPAMIL 2.5 MG/ML 2 ML AMP ONE (10:18)
[2023-07-02] MEDS ORDERED: LIDOCAINE 1% INJ 10MG/ML (20 ML MDV) ONE (10:37)
[2023-07-02] MEDS ORDERED: IV FLUID CONTINUATION 850 ML IV ONE (10:45)
[2023-07-02] MEDS: MIDAZOLAM 2 MG/2 ML VIAL IVP ONE ×2 (10:50→10:56)
[2023-07-02] MEDS ORDERED: LIDOCAINE 1% INJ 10MG/ML (20 ML MDV) SQ ONE (10:54)
[2023-07-02] MEDS ORDERED: fentaNYL (PF) 50 MCG/ML 2 ML AMP ONE (10:56)
[2023-07-02] MEDS ORDERED: fentaNYL (PF) 50 MCG/ML 2 ML AMP IVP ONE (10:58)
[2023-07-02] MEDS ORDERED: IOPAMIDOL-370 100ML BTL IVP ONE ×2 (11:19)
[2023-07-02] MEDS ORDERED: HEPARIN SODIUM 1,000 UN/ML (10ML VL) ONE (11:39)
[2023-07-02] MEDS ORDERED: HEPARIN SODIUM 1,000 UN/ML (10ML VL) IVP ONE (11:42)
[2023-07-02] MEDS ORDERED: IOPAMIDOL-370 100ML BTL INJ ONE ×2 (11:57→11:58)
[2023-07-02] MEDS ORDERED: CLOPIDOGREL 75 MG TAB PO ONE (11:57)
[2023-07-02] MEDS ORDERED: CLOPIDOGREL 75 MG TAB ONE (11:59)
[2023-07-02] MEDS ORDERED: NITROGLYCERIN SL TABS 0.4 MG TAB SUBLINGUAL PRN (12:10)
[2023-07-02] MEDS ORDERED: ATROPINE SULFATE 0.1 MG/ML 10ML SYRINGE IV PRN (12:10)
[2023-07-02] MEDS ORDERED: RX INFO: IV CONTRAST WAS GIVEN 1 EACH MISC MISCELLANE PRN (12:10)
[2023-07-02] MEDS ORDERED: ZOLPIDEM 5 MG TAB PO PRN (12:10)
[2023-07-02] MEDS ORDERED: MAG HYDROX/AL HYDROX/SIMETH 30 ML CUP PO PRN (12:10)
--- NOTE | 2023-07-02 13:32 | CC ---
CARDIAC CATHETERIZATION REPORT PROCEDURES: 1. Left heart catheterization and coronary angiography. 2. Selective injection of bypass grafts. 3. PTCA of mid/distal circumflex coronary artery. PERFORMED BY: Dr. Frank Falk. ANESTHESIA: Moderate conscious sedation time was 71 minutes. Patient was administered Versed. Oxygen saturation, hemodynamics, and EKG were monitored closely. CLINICAL INFORMATION: Mr. Jey Kingsley is a 72-year-old gentleman with a known history of hypertension, hyperlipidemia, past history of smoking, COPD, and pulmonary fibrosis. He also has CAD and underwent aortocoronary bypass surgery in 2004. At that time, his right coronary artery was occluded. He had a ZABALA to LAD, a vein graft to the obtuse marginal branch and a vein graft to the PLV branch of circumflex. Over the years, the vein graft to the obtuse marginal was occluded. I performed PTCA and stenting of the vein graft to the PLV branch of circumflex and this was performed in 2015. Since then, he also underwent stenting of his eyak circumflex from the ostium to the midportion. He had a chronic total occlusion with restenotic lesion and this was addressed in November of last year at [facility] with a 4.0 caliber drug-eluting stents. Since then, he has done well. However, he came in to the hospital with exacerbation of COPD, shortness of breath, no significant troponin elevation, but continued to have chest pain. He was advised cardiac cath after due discussion regarding risks, benefits, and options. PROCEDURE NOTE: Under local anesthesia and strict aseptic precautions, a 6-Yemeni introducer was placed in the right femoral artery. Using a JL4 catheter, I performed selective coronary angiography of the left coronary artery. I used a AR1 catheter to do selective coronary angiography of the vein graft to the obtuse marginal that was occluded. I also used the same catheter to perform eyak RCA injection. A ZABALA injection was performed with a Marielle catheter. I had difficulty getting the vein graft to the PLV branch of circumflex and for this I used AR1 catheter and with the AR1 catheter, I was able to get selective injection of the vein graft to the PLV branch of circumflex. I then noted that the distal eyak circumflex beyond the stented segment had about a 70% to 80% narrowing and I decided to perform PTCA of this vessel, proceeded to perform this in the same setting. LV pressures were checked with a pigtail catheter, but LV- gram was not performed. CARDIAC CATHETERIZATION FINDINGS: The left ventricular end-diastolic pressure was about 13 to 14 mmHg without any gradient across aortic valve. Coronary angiography findings: Left main coronary artery short patent vessel almost non-existent. It continues as circumflex. LAD is totally occluded at the ostium. Left anterior descending coronary artery: This vessel is totally occluded and no antegrade flow is noted. The ZABALA is patent. Left posterior circumflex coronary artery: This is a dominant vessel that was stented from the ostium to the midportion. The stented segment appears to be patent. Distally beyond the stented segment, the vessel is smaller in caliber. There is an eccentric 70% narrowing. This seems to be significant. This is somewhat distal lesion and we have to traverse through the entire stented segment to get to this lesion. Beyond it, the caliber is fair and it seems to supply a fair amount of myocardium. Right coronary artery: This vessel is totally occluded and without much antegrade flow seen as a stump. Saphenous vein graft to the obtuse marginal branch of circumflex: This graft is totally occluded, seen as a stump. Saphenous vein graft to the PLV branch of circumflex: This graft is widely patent, it is a very large graft, almost 5 mm graft, the stented segment and the midportion is patent. Flow is fairly brisk and the opacified distal branches are free of significant disease. The angiographic appearance is very similar to what was seen in 2021. There is no change in angiographic appearance or the brisk nature of flow. Left internal mammary artery graft to LAD: This ZABALA is widely patent with good flow and distally the LAD and diagonal branches and septal branches are all opacified, have mild diffuse disease throughout. No significant disease in the ZABALA itself. LAD has mild diffuse disease. Angiographic appearance is unchanged from November of 2021. FINAL IMPRESSION: This patient has normal filling pressures and no gradient, a left dominant system. RCA is totally occluded, circumflex in the distal portion beyond the stented segment has a 70% to 80% stenosis and the vessel is smaller in caliber. ZABALA to LAD is widely patent with decent flow, mild diffuse disease in LAD, vein graft to the obtuse marginal is occluded, vein graft to the PLV branch of circumflex is patent with good flow, multiple areas of narrowing of 40%, but no change angiographically, flow is brisk. RCA is totally occluded. RECOMMENDATIONS: I recommended PCI of eyak circumflex beyond the stented segment. I felt that going to stent this would be somewhat difficult because I would be traversing through a long stented segment which is also calcified and tortuous. I therefore decided to do PTCA and would consider stenting based on how the results are. Patient also received quite a bit of contrast by this time, almost 150 mL. PCI PROCEDURE DETAILS: Standard left JL4 guide catheter was used to cannulate the left coronary artery and a run-through wire was used to cross the lesion. Patient received about 4500 units of heparin. ACT was 370. He received 300 mg of Plavix. He will be on aspirin and Plavix combination for 1 week, then Xarelto and Plavix uninterrupted for 1 year. I used a run- through wire to cross the lesion and wire was kept distally. I used a 2.5 caliber [place] Trek balloon and dilated the lesion beyond the stented segment. Two inflations were given. Excellent angiographic result was achieved. I felt going through and stenting this would be somewhat difficult because I had difficulty getting the balloon over the curve of the vessel. Angiographic appearance improved remarkably. Flow was brisk and I felt I should not do further intervention since I may jeopardize the area which is stented in the proximal and mid circumflex. I discussed this with the patient. The sheath was taken out, and Angio-Seal device used to secure hemostasis and he was sent to the room in a stable condition. Results were discussed with the patient and family. I expect he will be discharged tomorrow on current medical therapy along with Xarelto which will be started today. The patient has paroxysmal atrial fibrillation. MMODL / IJN: [id number] /
[2023-07-02] MEDS: HEPARIN SOD,PORK IN 0.45% NACL 25,000 UNIT in 0.45% NACL 1 250ML.BAG IV SCH (14:31)
--- NOTE | 2023-07-02 15:08 | P.PN ---
Subjective Progress Note Date: 07/02/23 Principal diagnosis: Acute on chronic hypoxic respiratory failure, multifactorial I am seeing this patient in new consultation today 06/25/2023 after the patient presented with worsening exertional dyspnea that started approximately 1 week ago. Patient is a 72-year-old white male with past medical history significant for COPD, pulmonary fibrosis, chronic oxygen dependence maintained on 2 L/m nasal cannula at bedtime, atrial fibrillation anticoagulated on Xarelto, coronary artery disease with previous CABG, he does have an implanted permanent pacemaker, hypertension, hyperlipidemia, among other things. Patient does follow in the pulmonary office with Dr. Farias. He does have moderate COPD with an FEV1 69% of predicted. He is chronically oxygen and steroid dependent. He utilizes a combination of Wixela and as needed albuterol. He also has biopsy- proven pulmonary fibrosis, UIP type. He is maintained on Ofev. Patient presented to emergency room yesterday morning complaining of worsening exertional dyspnea. He does have chronic dyspnea related to his pulmonary diseases. He states that his shortness of breath worsens with minimal exertion including walking to the bathroom. While climbing the stairs in his home, he says that his pulse oximeter level dropped to 70% while on supplemental 2 L home O2 yesterday. He does not normally wear his oxygen 14/04, but has been lately. He admits to URI like symptoms approximately 1 week ago. Denies any fevers, chills, myalgias, cough. He does admit severe substernal chest pain last week that resolved with 2 nitroglycerin tabs. He does have a significant cardiac history. Denies recent stress test. He denies any current chest pain, heart palpitations, heaviness, syncope, or lower extremities swelling. Patient is currently lying in bed, on 2 L/m nasal cannula, in no acute distress. Chest x- ray redemonstrated his underlying interstitial fibrosis, there is also possible superimposed left lower lobe infiltrate. CBC on arrival showed a WBC count 11, hemoglobin 15.2, hematocrit 47.3, platelets 250. CMP on arrival is unremarkable. Troponin was 0.015. ECG shows normal sinus rhythm without any obvious acute ischemic changes. There are chronic q wave changes in II, III, AVF; right axis deviation. NT proBNP not significantly elevated for age at 757. Procalcitonin level was low at 0.06. Negative for influenza, RSV, COVID-19. Patient was empirically started on azithromycin and Rocephin. Afebrile. Pat ient is hemodynamically stable. On today's evaluation of 06/26/2023, the patient continues to be short of breath although slightly improved compared to yesterday. Nevertheless, the patient is still having exertional hypoxemia. The patient is on a pulse ox is around 87%. The patient is currently on 2 L of oxygen by nasal cannula. No new complaints otherwise for now. Remains on bronchodilators. Remains on steroids. The patient's pro-calcitonin level is at 0.06. Troponins are negative. No altered mentation. No pleurisy. No hemoptysis. No edema in lower extremities. No chest pain at this point in time. Overall condition is stable. On today's evaluation of 06/27/2023 the patient is still having difficulties in breathing and some exertional hypoxemia. Pulse ox is dropping down to the low 80s while him being on 2 L of Oxymizer nasal cannula and this is unusual for the patient. He does recover with rest. Echocardiogram showed some segmental wall motion of the mouth is related to her previous OR. Left ejection fraction is well-preserved. The patient remains on bronchodilators. The patient remains on steroids. Zithromax was also added was added as an empiric antibiotic coverage. White cell count is higher at 29. D-dimer is at 0.24. Hemoglobin is at 14. BUN is at 80 with a creatinine of 0.5 and sodium level is at 138. On 06/28/2023, the patient is being seen for a follow-up. Still having exertional dyspnea and hypoxemia. I reviewed the CAT scan of the chest was done yesterday. There is chronic fibrosis in addition to that there is some increased interstitial changes peripherally in the lung bases. This can be potentially a superinfection or progression of his underlying pulmonary fibrosis. Patient is on Zithromax. I added Rocephin. Remains on O2 at 2 L/m nasal cannula. On 06/29/2023, the patient is essentially unchanged. He is still having some exertional dyspnea and fatigue. He is also having exertional hypoxemia. He is currently on 3 L of oxygen by nasal cannula. He developed some leukocytosis with a white second as high as 29. Subsequent white cell count dropped down to 24 with a hemoglobin of 14. BUN is at 23 with a creatinine of 0.6. No new complaints otherwise for now is on 3 L with a pulse ox of 96%. The patient is seen today 06/30/2023 in follow-up on the medical floor. He is currently sitting up in a chair at the bedside. Awake and alert in no acute distress. Maintaining O2 saturations in the 90s on 3 L/m per nasal cannula. He was having episodes of chest pain yesterday that was resolved with nitroglycerin. Cardiology is following. The plan is for transfer to cardiac stepdown unit and cardiac catheterization tomorrow. His Xarelto was discontinued and he was initiated on a heparin drip. Sputum culture revealed no growth. Blood cultures revealed no growth. His pro-calcitonin was 0.06. Ceftriaxone to be discontinued. He is continued on bronchodilators, Solu- Medrol. White count 22.8. Hemoglobin 13.8. Platelets 301. Sodium 133. Potassium 3.7. Bicarb 23. BUN 23. Creatinine 0.8. Glucose 132. Troponins have been negative. Chest x-ray shows no significant change compared to previous. Fibrotic changes noted. Patient was seen and reevaluated today on 07/01/2023, patient remains on 3 L nasal cannula, O2 saturations 90% on 3 L, patient has shortness of breath with any activity. He does have history of underlying idiopathic pulmonary fibrosis, biopsy proven. Patient is being considered for cardiac catheterization to be done by cardiology, he has apparently intermittent episodes of chest pain/unstable angina. Patient had a previous history of CABG and PTCA. He also has history of paroxysmal atrial fibrillation and sick sinus syndrome. Previous permanent pacemaker implantation. Not to mention the patient has COPD and underlying pulmonary fibrosis. Reevaluated today on 07/02/2023, patient is basically about the same, gradual to have cardiac catheterization today. Pulmonary-corey he does have intermittent cough and shortness of breath. Remains on 6 L O2 and his O2 sats is 89%. Patient does have chronic fibrotic changes/UIP, difficult to rule out underlying component of air space disease and/or CHF. But clinically felt to be less likely. Patient has WBC of 36.1, steadily rising since he was admitted, I am going to repeat his chest x-ray and empirically placed on antibiotics. Check pro-calcitonin level on this patient although his admission pro-calcitonin was 0.06 however this was a week ago. Objective - Vital Signs Vital signs: Vital Signs Temp 97.7 F 07/02/23 08:00 Pulse 79 07/02/23 13:25 Resp 20 07/02/23 13:25 BP 134/76 07/02/23 13:25 Pulse Ox 89 L 07/02/23 13:25 FiO2 Intake & Output 07/01/23 07/02/23 07/02/23 18:59 06:59 18:59 Intake Total 1008.456 605.871 Output Total 500 Balance 1008.456 105.871 Weight 63.503 kg Intake: IV 450 Intake, IV Titration 788.456 155.871 Amount Heparin Sod,Pork in 0.45% 88.456 155.871 NaCl 25,000 unit In 0.45 % NaCl 1 250ml.bag @ 12 UNITS/KG/HR 7.62 mls/hr IV .Q24H [facility] Rx#: [id number] Sodium Chloride 0.9% 1, 700 000 ml In Empty Bag 1 bag @ 1 ML/KG/HR 63.503 mls/ hr IV .[id number] [facility] Rx#: [id number] Oral 220 Output: Urine 500 Other: Voiding Method Toilet Toilet Toilet Urinal Urinal # Voids 2 - Exam Physical Exam: Revealed 72-year-old white male in no distress on 6 L/m Head: Atraumatic normocephalic HEENT:[Neck is supple.] [No neck masses.] [No thyromegaly.] [No JVD.] Chest: [Fine Velcro rales and crackles at the bases Cardiac Exam: [Normal S1 and S2, no S3 gallop, no murmur.] Abdomen: [Soft, nontender, no megaly, no rebound, no guarding, normal bowel sounds.] Extremities: [No clubbing, no edema, no cyanosis.] Neurological Exam: [No focal neurologic deficit.] Alert and oriented 3 Psychiatric: Normal mood, affect and normal status examination. Skin: No rash - Labs CBC & Chem 7: 07/01/23 05:27 06/30/23 07:18 Assessment and Plan Assessment: Impression: Acute on chronic hypoxic respiratory failure secondary to COPD and underlying pulmonary fibrosis/UIP. Chest pain/unstable angina being addressed by cardiology and being considered for cardiac catheterization. History of coronary arteriosclerosis and previous CABG as well as PCI History of implanted permanent pacemaker Benign essential hypertension Paroxysmal atrial fibrillation Dyslipidemia Ex-smoker Recommendation: Continue oxygen and titrate accordingly Repeat chest x-ray Empiric antibiotics especially with his leukocytosis Recheck pro-calcitonin level Continue bronchodilators Awaiting findings from his cardiac catheterization. Continue heparin We will continue to follow. Patient is definitely not a candidate for CABG considering his underlying UIP Time with Patient: Less than 30
[2023-07-02] MEDS ORDERED: FUROSEMIDE 10 MG/ML 2 ML VIAL IV STA (15:15)
[2023-07-02] MEDS: SODIUM CHLORIDE 0.9% 1,000 ML in EMPTY BAG 1 BAG IV SCH ×2 (15:18→22:43)
[2023-07-02] MEDS: ALPRAZolam 0.25 MG TAB PO PRN (15:25)
[2023-07-02] MEDS ORDERED: guaiFENesin-Coden 100-10MG/5ML 10 ML CUP PO PRN (15:31)
--- NOTE | 2023-07-02 15:33 | XR ---
EXAMINATION TYPE: XR chest 1V portable DATE OF EXAM: 07/02/2023 COMPARISON: 06/30/2023 HISTORY: Shortness of breath TECHNIQUE: Single view of the chest is submitted. FINDINGS: Scattered senescent parenchymal changes noted. Hyperinflation compatible with COPD. Worsening coarse interstitial infiltrates throughout the right lung and left lower lobe. Heart size is stable. Mediastinal structures are stable and grossly unremarkable. No evidence for hilar prominence. Degenerative changes dorsal spine. IMPRESSION: 1. Worsening coarse interstitial infiltrates throughout the right lung and left lower lobe.
[2023-07-02] MEDS: BENZONATATE 100 MG CAP PO SCH ×2 (15:40→21:00)
[2023-07-02] MEDS ORDERED: CEFEPIME 2 GM in SODIUM CHLORIDE 0.9% 100 ML IVPB SCH (16:00)
--- NOTE | 2023-07-02 18:08 | P.PN ---
Progress Note - Text Progress Note Date: 07/02/23 Chief Complaint: Short of breath This is a pleasant 72-year-old, follows with Dr. Emilia Bob. 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2 Dba Dr. Farias. Normally uses 2 L of oxygen at night. Sometimes excessive activity in the daytime. About a week ago patient developed 40 to describe neck: Neck symptoms the runny nose. Subsequently's been noticing that is getting increasingly short of breath example going up the stairs. And oxygen pulse ox dropped down to 70-82%. No cough. No fever no chills. Just tired. Negative self COVID negative test. Patient had 3 bouts of COVID 19 2020. Patient at that time and received BAM. June 25: Up in a chair. at the bedside. Did desaturate going to the bathroom. Changed to Perforomist and nebulized steroids. IV steroids to continue. Follow with pulmonary. Discussed. Seen by cardiology. Increased Im dur. Added Ranexa. June 30: I resumed care of the patient today. Up in a chair. He does some chest pain yesterday resolved by nitro.. Seen by cardiology. Plan for cardiac catheterization. at the bedside. July 01: Cardiac catheterization postponed for tomorrow. Does get tired with activity. Discussed with patient daughter the bedside. On IV heparin. July 02: Patient underwent cardiac catheterization Dr. LIDIA Falk today. RCA is totally occluded. Circumflex and the distal portion beyond the stented segment 70-80% stenosis. Diffuse disease in LAD. Vein graft to the obtuse m arginal occluded. And vein graft to PLV branch of the circumflex is patent. Multiple areas of narrowing 40%. Patient underwent angioplasty. It was felt by the load haul dump operator that stent could not be appropriate in the anatomical findings. Patient return to the floor. Postprocedure shortness of breath. Placed on a BiPAP. Active Medications Acetaminophen (Acetaminophen Tab 325 Mg Tab) 650 mg PO Q6H PRN PRN Reason: Pain Al Hydroxide/Mg Hydroxide (Mag Hydrox/Al Hydrox/Simeth 30 Ml Cup) 30 ml PO Q4HR PRN PRN Reason: Heartburn Albuterol Sulfate (Albuterol Nebulized 2.5 Mg/3 Ml) 2.5 mg INHALATION RT-Q4H PRN PRN Reason: Shortness Of Breath Or Wheezing Last Admin: 06/29/23 18:16 Dose: 2.5 mg Albuterol/Ipratropium (Ipratropium-Albuterol 3 Ml Neb) 3 ml INHALATION RT-QID PRN PRN Reason: Shortness Of Breath Last Admin: 07/02/23 15:44 Dose: 3 ml Alprazolam (Alprazolam 0.25 Mg Tab) 0.25 mg PO Q6HR PRN PRN Reason: Mild Anxiety Last Admin: 07/02/23 15:25 Dose: 0.25 mg Alprazolam (Alprazolam 0.5 Mg Tab) 0.5 mg PO Q6HR PRN PRN Reason: Moderate Anxiety Aspirin (Aspirin 81 Mg) 81 mg PO DAILY [facility] Last Admin: 07/02/23 10:05 Dose: Not Given Atorvastatin Calcium (Atorvastatin 80 Mg Tab) 80 mg PO HS [facility] Last Admin: 07/01/23 21:42 Dose: 80 mg Atropine Sulfate (Atropine Sulfate 0.1 Mg/Ml 10ml Syringe) 0.5 mg IV ONCE PRN PRN Reason: Symptomatic Bradycardia Benzonatate (Benzonatate 100 Mg Cap) 200 mg PO TID [facility] Last Admin: 07/02/23 15:40 Dose: 200 mg Budesonide (Budesonide 1 Mg/2 Ml Nebu) 1 mg INHALATION RT-BID [facility] Last Admin: 07/02/23 08:24 Dose: 1 mg Bupropion HCl (Bupropion Sr 150 Mg Tablet.Er) 150 mg PO BID [facility] Last Admin: 07/02/23 06:53 Dose: 150 mg Calcium Carbonate/Glycine (Calcium Carbonate 500 Mg Chewable) 1,000 mg PO Q4HR PRN PRN Reason: Dyspepsia Clopidogrel Bisulfate (Clopidogrel 75 Mg Tab) 75 mg PO DAILY [facility] Last Admin: 07/02/23 06:53 Dose: 75 mg Ferrous Sulfate (Ferrous Sulfate 325 Mg Tab) 325 mg PO DAILY [facility] Last Admin: 07/02/23 06:53 Dose: 325 mg Formoterol Fumarate (Formoterol Fumarate 20 Mcg/2 Ml Nebu) 20 mcg INHALATION RT-BID [facility] Last Admin: 07/02/23 08:24 Dose: 20 mcg Gabapentin (Gabapentin 300 Mg Cap) 300 mg PO BID [facility] Last Admin: 07/02/23 06:52 Dose: 300 mg Guaifenesin/Codeine Phosphate (Guaifenesin-Coden 100-10mg/5ml 10 Ml Cup) 10 ml PO Q6HR PRN PRN Reason: Cough Last Admin: 07/02/23 15:40 Dose: 10 ml Sodium Chloride 1,000 ml/ IV (Solution) 1,000 mls @ 63.503 mls/hr IV .[id number] [facility] Last Admin: 07/01/23 21:44 Dose: 63.503 mls/hr Sodium Chloride 1,000 ml/ IV (Solution) 1,000 mls @ 75 mls/hr IV .[id number] [facility] Last Admin: 07/02/23 15:18 Dose: Not Given Cefepime HCl 2 gm/ Sodium (Chloride) 100 mls @ 25 mls/hr IVPB Q8HR [facility]; Protocol Lactulose (Lactulose 20 Gm/30 Ml Cup) 20 gm PO DAILY PRN PRN Reason: Constipation Last Admin: 06/28/23 10:17 Dose: 20 gm Lisinopril (Lisinopril 5 Mg Tab) 5 mg PO HS [facility] Loratadine (Loratadine 10 Mg Tab) 10 mg PO DAILY PRN PRN Reason: Allergy Symptoms Lorazepam (Lorazepam 0.5 Mg Tab) 0.5 mg PO Q6HR PRN PRN Reason: Anxiety Melatonin (Melatonin 3 Mg Tablet) 3 mg PO HS PRN PRN Reason: Insomnia Last Admin: 06/29/23 20:27 Dose: 3 mg Methylprednisolone Sodium Succinate (Methylprednisolone Sod Succi 40 Mg/Ml 1 Ml Vial) 40 mg IV Q6HR [facility] Last Admin: 07/02/23 17:26 Dose: 40 mg Metoprolol Tartrate (Metoprolol Tartrate 50 Mg Tab) 50 mg PO BID [facility] Last Admin: 07/02/23 06:53 Dose: 50 mg Miscellaneous Information (Pneumonia Protocol Utilized 1 Each Misc) 1 each PO ONCE PRN PRN Reason: Per Protocol Miscellaneous Information (Rx Info: Iv Contrast Was Given 1 Each Misc) 1 each MISCELLANE DAILY PRN PRN Reason: Per Protocol Stop: 07/04/23 12:10 Naloxone HCl (Naloxone 0.4 Mg/Ml 1 Ml Vial) 0.2 mg IV Q2M PRN PRN Reason: Opioid Reversal Nitroglycerin (Nitroglycerin Sl Tabs 0.4 Mg Tab) 0.4 mg SUBLINGUAL Q5M PRN PRN Reason: Chest Pain Last Admin: 06/29/23 17:52 Dose: 0.4 mg Nitroglycerin (Nitroglycerin Oint 1 Inch/Gm Packet) 0.5 inch TOPICAL Q6HR [facility] Last Admin: 07/02/23 17:11 Dose: Not Given Patient's Own ( Nintedanib Esylate [ Ofev] 150 Mg Capsule ) 150 mg PO BID [facility] Last Admin: 07/02/23 06:56 Dose: Not Given Ondansetron HCl (Ondansetron 4 Mg/2 Ml Vial) 4 mg IVP Q8HR PRN PRN Reason: Nausea And Vomiting Pantoprazole Sodium (Pantoprazole 40 Mg Tablet) 40 mg PO DAILY [facility] Last Admin: 07/02/23 06:53 Dose: 40 mg Polyethylene Glycol (Polyethylene Glycol 3350 17 Gm Powd.Pack) 17 gm PO HS PRN PRN Reason: Constipation Last Admin: 06/26/23 08:20 Dose: 17 gm Ranolazine (Ranolazine 500 Mg Tab.Er.12h) 1,000 mg PO Q12HR [facility] Last Admin: 07/02/23 06:53 Dose: 1,000 mg Rivaroxaban (Rivaroxaban 20 Mg Tab) 20 mg PO W/SUPPER [facility]; Protocol Zolpidem Tartrate (Zolpidem 5 Mg Tab) 5 mg PO HS PRN PRN Reason: Insomnia Past medical history to include: Atrial fibrillation, CAD, COPD, GERD, hyperlipidemia, hypertension, osteoarthritis, COVID 19, bradycardia with pacemaker, lumbar disc disorder, ventral hernia, pulmonary fibrosis, nocturnal oxygen, CAD with stent and coronary bypass in 2004 Social history: . 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 Smoked for about 48 years since the age of 17 stopped in 2016. Alcohol rarely. Physical examination: VITAL SIGNS: 98.4, 77, 35, 124/69, BiPAP GENERAL: Laying in bed, tired EYES: Pupils equal. Conjunctiva normal. HEENT: External appearance of nose and ears normal, oral cavity grossly normal. NECK: JVD not raised; masses not palpable. HEART: First and second heart sounds are normal; no edema. LUNGS: Respiratory rate increased; decreased breath sound some crackles. ABDOMEN: Soft, nontender, liver spleen not palpable, no masses palpable. PSYCH: Sleepy MUSCULOSKELETAL:No Clubbing/cyanosis;muscles-grossly intact. OA INVESTIGATIONS, reviewed in the clinical context: June 30: White count 22.8 hemoglobin 13.8 potassium 3.7 creatinine 0.8 Chest CTA: Pleural calcifications. No pulmonary embolism. 2-D echocardiogram: Hypokinetic inferior wall. Mild to moderate mitral regurgitation, pulmonic regurgitation 5%. Troponin I less than 0.012 Procalcitonin 0.06. Urine Legionella antigen: Negative White count 11.0 hemoglobin 15.2 platelets 250 potassium 4.1 BUN 11 creatinine 0.67 ProBNP 755 Troponin I 0.015 Influenza type A, B, RSV, COVID-19 PCR: Noninjected EKG tracing personally reviewed by me-no sinus rhythm. Nonspecific ST-T wave changes. Chest x-ray film personally reviewed by me-hyperinflation. Some basal chronic changes. Pacemaker. Assessment plan: -Acute shortness of breath or loss for 5 days with increasing hypoxia. Patient had cold-like symptoms about a week ago. Finding is started having increasing shortness of breath and hypoxia with activity. Most likely a combination of exacerbation of pulmonary fibrosis and COPD. Cardiac ischemia to be considered.: Slow to respond -Angioplasty to circumflex -Anterior chest wall pain with inferior wall hypokinesis on 2-D echo.: Unstable angina Negative troponin. Cardiac catheterization -RCA is totally occluded. Circumflex and the distal portion beyond the stented segment 70-80% stenosis. Diffuse disease in LAD. Vein graft to the obtuse marginal occluded. And vein graft to PLV branch of the circumflex is patent. Multiple areas of narrowing 40%. Patient underwent angioplasty. It was felt by the load haul dump operator that stent could not be appropriate in the anatomical findings. Angioplasty to the circumflex carried out -IV heparin monitoring Follow PTT -Acute on chronic hypoxic respiratory failure, multifactorial: Worsening On BiPAP -Acute COPD exacerbation, and a previous smoker: Slow to respond DuoNeb. IV Solu-Medrol -Chronic pulmonary fibrosis possibly acute exacerbation of symptoms precipitated by viral infection IV Solu-Medrol -Coronary artery disease prior history of coronary bypass and stent Consult cardiology Imdur increased to 60 mg a day. Ranexa 5 mg twice daily added. -Essential hypertension Metoprolol 50 mg twice a day, Zestril 2.5 mg daily at bedtime, Imdur 30 mg a day -Depression otherwise specified Wellbutrin SR 150 mg twice a day -Paroxysmal atrial fibrillation, currently sinus rhythm Xarelto, Lopressor Post cardiac cath. BiPAP. Past Medical History Past Medical History: Atrial Fibrillation, Coronary Artery Disease (CAD), COPD, GERD/Reflux, Hyperlipidemia, Hypertension, Musculoskeletal Disorder, Osteoarthritis (OA), Pneumonia, Respiratory Disorder Additional Past Medical History / Comment(s): Hx Covid 04/2021 with antibody treatment, Bradycardia with pacemaker, lumbar disc disorder, small hiatal hernia, ventral hernia, hx anemia, hx hemmorrhoids with bleeding, pulmonary fibrosis dx in 2021, home oxygen History of Any Multi-Drug Resistant Organisms: None Reported Past Surgical History: Coronary Bypass/CABG, Heart Catheterization, Heart Catheterization With Stent, Hernia Repair, Orthopedic Surgery, Pacemaker Additional Past Surgical History / Comment(s): Vasectomy, 3 vessel CABG 2004, BILATERAL CATARACT, VASECTOMY, BONE INFUSION MIDDLE LEFT FINGER CRUSHING INJURY, right knee arthroscopy, [employer] pacemaker placed 11/04/16, 3 stents to Circ 12/16/16, ventricular lead replacement 08/21/2018, hematoma evacuation from pacemaker site 08/23/2018. Past Anesthesia/Blood Transfusion Reactions: No Reported Reaction Date of Last Stent Placement:: 12/16/16 Type of Cardiac Device: Permanent Pacemaker Device Placement Date:: 11/04/16 Past Psychological History: No Psychological Hx Reported Additional Psychological History / Comment(s): Pt resides with his spouse. 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 He has a nebulizer. Has oxygen at home. Still drives. Smoking Status: Former smoker Past Alcohol Use History: Rare Additional Past Alcohol Use History / Comment(s): Quit smoking 7--16, smoked since age 17. Past Drug Use History: None Reported - Past Family History Father Family Medical History: Cancer Additional Family Medical History / Comment(s): . Mother Family Medical History: Coronary Artery Disease (CAD) Additional Family Medical History / Comment(s): HEART PROBLEMS. Sister(s) Family Medical History: Cancer Additional Family Medical History / Comment(s): Lymph nodes. Brother(s) Family Medical History: Cancer
[2023-07-02] MEDS: RIVAROXABAN 20 MG TAB PO SCH (18:30)
[2023-07-02 19:58] LABS: Glucose,Whole Blood 106 mg/dL (70-110)
[2023-07-02] MEDS: ATORVASTATIN 80 MG TAB PO SCH (21:00)
[2023-07-02] MEDS: lisinopriL 5 MG TAB PO SCH (21:00)
[2023-07-02] MEDS: CEFEPIME 2 GM in SODIUM CHLORIDE 0.9% 100 ML IVPB SCH (21:01)
[2023-07-03] MEDS: ALPRAZolam 0.25 MG TAB PO PRN ×2 (00:01→08:33)
[2023-07-03] MEDS: methylPREDNISolone SOD SUCCI 40 MG/ML 1 ML VIAL IV SCH ×2 (00:01→06:02)
[2023-07-03] MEDS: SODIUM CHLORIDE 0.9% 1,000 ML in EMPTY BAG 1 BAG IV SCH ×2 (02:22→18:08)
[2023-07-03] MEDS: CEFEPIME 2 GM in SODIUM CHLORIDE 0.9% 100 ML IVPB SCH ×3 (04:19→20:12)
[2023-07-03] MEDS: NITROGLYCERIN OINT 1 INCH/GM PACKET TOPICAL SCH ×5 (05:45→23:04)
[2023-07-03 05:58] LABS: Glucose,Whole Blood 118 mg/dL (70-110)
--- NOTE | 2023-07-03 07:36 | XR ---
EXAMINATION TYPE: XR chest 1V portable DATE OF EXAM: 07/03/2023 Comparison: 07/02/2023 Clinical History: 72-year-old male follow-up uip/chf Findings: Left anterior chest wall pacemaker generator with right atrial and right ventricular leads. Median st ernotomy wires are present. Heart borderline to mildly enlarged. Diffuse coarse reticular opacities p ersist right greater than left. Impression: Overall unchanged severe coarse interstitial lung opacities, right greater than left.
[2023-07-03] MEDS: FORMOTEROL FUMARATE 20 MCG/2 ML NEBU INHALATION SCH ×2 (07:44→21:40)
[2023-07-03] MEDS: BUDESONIDE 1 MG/2 ML NEBU INHALATION SCH ×2 (07:44→21:40)
[2023-07-03] MEDS: ALBUTEROL NEBULIZED 2.5 MG/3 ML INHALATION PRN (07:44)
[2023-07-03] MEDS: GABAPENTIN 300 MG CAP PO SCH ×2 (08:33→20:12)
[2023-07-03] MEDS: PANTOPRAZOLE 40 MG TABLET PO SCH (08:33)
[2023-07-03] MEDS: CLOPIDOGREL 75 MG TAB PO SCH (08:33)
[2023-07-03] MEDS: buPROPion SR 150 MG TABLET.ER PO SCH ×2 (08:33→20:14)
[2023-07-03] MEDS: METOPROLOL TARTRATE 50 MG TAB PO SCH ×2 (08:33→20:12)
[2023-07-03] MEDS: ASPIRIN 81 MG PO SCH (08:33)
[2023-07-03] MEDS: BENZONATATE 100 MG CAP PO SCH ×3 (08:33→20:12)
[2023-07-03] MEDS: RANOLAZINE 500 MG TAB.ER.12H PO SCH ×2 (08:33→20:12)
[2023-07-03] MEDS: FERROUS SULFATE 325 MG TAB PO SCH (08:33)
[2023-07-03 08:40] LABS: African American GFR (CKD) >90 (>60 ml/min/1.73 sqM); Anion Gap 4 mmol/L; Blood Urea Nitrogen 28 mg/dL (9-20); Calcium 7.7 mg/dL (8.4-10.2); Carbon Dioxide 25 mmol/L (22-30); Chloride 103 mmol/L (98-107); Glucose 107 mg/dL (74-99); Non-African American GFR(CKD) >90 (>60 ml/min/1.73 sqM); Potassium 4.6 mmol/L (3.5-5.1); Sodium 132 mmol/L (137-145)
[2023-07-03 08:51] LABS: Basophils # (A) 0.1 k/uL (0-0.2); Basophils % (A) 0 %; Eosinophils % (A) 0 %; HCT 42.5 % (39.0-53.0); HGB 13.8 gm/dL (13.0-17.5); Lymphocytes # (A) 0.5 k/uL (1.0-4.8); Lymphocytes % (A) 2 %; MCH 30.7 pg (25.0-35.0); MCHC 32.4 g/dL (31.0-37.0); MCV 94.7 fL (80.0-100.0); Mean Platelet Volume 8.4; Monocytes # (A) 1.5 k/uL (0-1.0); Monocytes % (A) 5 %; Neutrophils # (A) 24.3 k/uL (1.3-7.7); Neutrophils % (A) 91 %; Platelet Count 185 k/uL (150-450); RBC 4.48 m/uL (4.30-5.90); RDW 15.2 % (11.5-15.5); WBC 26.8 k/uL (3.8-10.6)
[2023-07-03 11:36] LABS: Glucose,Whole Blood 94 mg/dL (70-110)
[2023-07-03] MEDS: ALPRAZolam 0.5 MG TAB PO PRN ×2 (12:11→20:12)
[2023-07-03] MEDS: methylPREDNISolone SOD SUCCI 125 MG/2 ML VIAL IV SCH ×3 (12:11→23:05)
[2023-07-03] MEDS: FUROSEMIDE 10 MG/ML 2 ML VIAL IV SCH ×2 (12:11→20:13)
--- NOTE | 2023-07-03 13:38 | P.PN ---
Progress Note - Text Progress Note Date: 07/03/23 Chief Complaint: Short of breath This is a pleasant 72-year-old, follows with Dr. Emilia Bob. 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 Normally uses 2 L of oxygen at night. Sometimes excessive activity in the daytime. About a week ago patient developed 40 to describe neck: Neck symptoms the runny nose. Subsequently's been noticing that is getting increasingly short of breath example going up the stairs. And oxygen pulse ox dropped down to 70-82%. No cough. No fever no chills. Just tired. Negative self COVID negative test. Patient had 3 bouts of COVID 19 2020. Patient at that time and received BAM. June 25: Up in a chair. at the bedside. Did desaturate going to the bathroom. Changed to Perforomist and nebulized steroids. IV steroids to continue. Follow with pulmonary. Discussed. Seen by cardiology. Increased Im dur. Added Ranexa. June 30: I resumed care of the patient today. Up in a chair. He does some chest pain yesterday resolved by nitro.. Seen by cardiology. Plan for cardiac catheterization. at the bedside. July 01: Cardiac catheterization postponed for tomorrow. Does get tired with activity. Discussed with patient daughter the bedside. On IV heparin. July 02: Patient underwent cardiac catheterization Dr. LIDIA Falk today. RCA is totally occluded. Circumflex and the distal portion beyond the stented segment 70-80% stenosis. Diffuse disease in LAD. Vein graft to the obtuse m arginal occluded. And vein graft to PLV branch of the circumflex is patent. Multiple areas of narrowing 40%. Patient underwent angioplasty. It was felt by the embossograph operator that stent could not be appropriate in the anatomical findings. Patient return to the floor. Postprocedure shortness of breath. Placed on a BiPAP. July 03: Remains on BiPAP. Short of breath. Getting IV Lasix. Also lesly nues steroids. Discussed with patient and Dr. Harris. Follow with cardiology. Active Medications Acetaminophen (Acetaminophen Tab 325 Mg Tab) 650 mg PO Q6H PRN PRN Reason: Pain Al Hydroxide/Mg Hydroxide (Mag Hydrox/Al Hydrox/Simeth 30 Ml Cup) 30 ml PO Q4HR PRN PRN Reason: Heartburn Albuterol Sulfate (Albuterol Nebulized 2.5 Mg/3 Ml) 2.5 mg INHALATION RT-Q4H PRN PRN Reason: Shortness Of Breath Or Wheezing Last Admin: 07/03/23 07:44 Dose: 2.5 mg Albuterol/Ipratropium (Ipratropium-Albuterol 3 Ml Neb) 3 ml INHALATION RT-QID PRN PRN Reason: Shortness Of Breath Last Admin: 07/02/23 21:45 Dose: 3 ml Alprazolam (Alprazolam 0.25 Mg Tab) 0.25 mg PO Q6HR PRN PRN Reason: Mild Anxiety Last Admin: 07/03/23 08:33 Dose: 0.25 mg Alprazolam (Alprazolam 0.5 Mg Tab) 0.5 mg PO Q6HR PRN PRN Reason: Moderate Anxiety Last Admin: 07/03/23 12:11 Dose: 0.5 mg Aspirin (Aspirin 81 Mg) 81 mg PO DAILY [facility] Last Admin: 07/03/23 08:33 Dose: 81 mg Atorvastatin Calcium (Atorvastatin 80 Mg Tab) 80 mg PO HS [facility] Last Admin: 07/02/23 21:00 Dose: 80 mg Atropine Sulfate (Atropine Sulfate 0.1 Mg/Ml 10ml Syringe) 0.5 mg IV ONCE PRN PRN Reason: Symptomatic Bradycardia Benzonatate (Benzonatate 100 Mg Cap) 200 mg PO TID [facility] Last Admin: 07/03/23 08:33 Dose: 200 mg Budesonide (Budesonide 1 Mg/2 Ml Nebu) 1 mg INHALATION RT-BID [facility] Last Admin: 07/03/23 07:44 Dose: 1 mg Bupropion HCl (Bupropion Sr 150 Mg Tablet.Er) 150 mg PO BID [facility] Last Admin: 07/03/23 08:33 Dose: 150 mg Calcium Carbonate/Glycine (Calcium Carbonate 500 Mg Chewable) 1,000 mg PO Q4HR PRN PRN Reason: Dyspepsia Clopidogrel Bisulfate (Clopidogrel 75 Mg Tab) 75 mg PO DAILY [facility] Last Admin: 07/03/23 08:33 Dose: 75 mg Ferrous Sulfate (Ferrous Sulfate 325 Mg Tab) 325 mg PO DAILY [facility] Last Admin: 07/03/23 08:33 Dose: 325 mg Formoterol Fumarate (Formoterol Fumarate 20 Mcg/2 Ml Nebu) 20 mcg INHALATION RT-BID [facility] Last Admin: 07/03/23 07:44 Dose: 20 mcg Furosemide (Furosemide 10 Mg/Ml 2 Ml Vial) 20 mg IV Q12HR [facility] Last Admin: 07/03/23 12:11 Dose: 20 mg Gabapentin (Gabapentin 300 Mg Cap) 300 mg PO BID [facility] Last Admin: 07/03/23 08:33 Dose: 300 mg Guaifenesin/Codeine Phosphate (Guaifenesin-Coden 100-10mg/5ml 10 Ml Cup) 10 ml PO Q6HR PRN PRN Reason: Cough Last Admin: 07/02/23 15:40 Dose: 10 ml Sodium Chloride 1,000 ml/ IV (Solution) 1,000 mls @ 63.503 mls/hr IV .[id number] [facility] Last Admin: 07/02/23 22:43 Dose: Not Given Sodium Chloride 1,000 ml/ IV (Solution) 1,000 mls @ 75 mls/hr IV .[id number] [facility] Last Admin: 07/03/23 02:22 Dose: Not Given Cefepime HCl 2 gm/ Sodium (Chloride) 100 mls @ 25 mls/hr IVPB Q8H [facility] Last Admin: 07/03/23 12:10 Dose: 25 mls/hr Lactulose (Lactulose 20 Gm/30 Ml Cup) 20 gm PO DAILY PRN PRN Reason: Constipation Last Admin: 06/28/23 10:17 Dose: 20 gm Lisinopril (Lisinopril 5 Mg Tab) 5 mg PO HS [facility] Last Admin: 07/02/23 21:00 Dose: 5 mg Loratadine (Loratadine 10 Mg Tab) 10 mg PO DAILY PRN PRN Reason: Allergy Symptoms Lorazepam (Lorazepam 0.5 Mg Tab) 0.5 mg PO Q6HR PRN PRN Reason: Anxiety Melatonin (Melatonin 3 Mg Tablet) 3 mg PO HS PRN PRN Reason: Insomnia Last Admin: 06/29/23 20:27 Dose: 3 mg Methylprednisolone Sodium Succinate (Methylprednisolone Sod Succi 125 Mg/2 Ml Vial) 60 mg IV Q6HR [facility] Last Admin: 07/03/23 12:11 Dose: 60 mg Metoprolol Tartrate (Metoprolol Tartrate 50 Mg Tab) 50 mg PO BID [facility] Last Admin: 07/03/23 08:33 Dose: 50 mg Miscellaneous Information (Pneumonia Protocol Utilized 1 Each Misc) 1 each PO ONCE PRN PRN Reason: Per Protocol Miscellaneous Information (Rx Info: Iv Contrast Was Given 1 Each Misc) 1 each MISCELLANE DAILY PRN PRN Reason: Per Protocol Stop: 07/04/23 12:10 Naloxone HCl (Naloxone 0.4 Mg/Ml 1 Ml Vial) 0.2 mg IV Q2M PRN PRN Reason: Opioid Reversal Nitroglycerin (Nitroglycerin Sl Tabs 0.4 Mg Tab) 0.4 mg SUBLINGUAL Q5M PRN PRN Reason: Chest Pain Last Admin: 06/29/23 17:52 Dose: 0.4 mg Nitroglycerin (Nitroglycerin Oint 1 Inch/Gm Packet) 0.5 inch TOPICAL Q6HR [facility] Last Admin: 07/03/23 05:45 Dose: Not Given Patient's Own ( Nintedanib Esylate [ Ofev] 150 Mg Capsule ) 150 mg PO BID [facility] Last Admin: 07/02/23 21:02 Dose: Not Given Ondansetron HCl (Ondansetron 4 Mg/2 Ml Vial) 4 mg IVP Q8HR PRN PRN Reason: Nausea And Vomiting Pantoprazole Sodium (Pantoprazole 40 Mg Tablet) 40 mg PO DAILY [facility] Last Admin: 07/03/23 08:33 Dose: 40 mg Polyethylene Glycol (Polyethylene Glycol 3350 17 Gm Powd.Pack) 17 gm PO HS PRN PRN Reason: Constipation Last Admin: 06/26/23 08:20 Dose: 17 gm Ranolazine (Ranolazine 500 Mg Tab.Er.12h) 1,000 mg PO Q12HR [facility] Last Admin: 07/03/23 08:33 Dose: 1,000 mg Rivaroxaban (Rivaroxaban 20 Mg Tab) 20 mg PO W/SUPPER [facility]; Protocol Last Admin: 07/02/23 18:30 Dose: 20 mg Zolpidem Tartrate (Zolpidem 5 Mg Tab) 5 mg PO HS PRN PRN Reason: Insomnia Past medical history to include: Atrial fibrillation, CAD, COPD, GERD, hyperlipidemia, hypertension, osteoarthritis, COVID 19, bradycardia with pacemaker, lumbar disc disorder, ventral hernia, pulmonary fibrosis, nocturnal oxygen, CAD with stent and coronary bypass in 2004 Social history: . 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 Smoked for about 48 years since the age of 17 stopped in 2016. Alcohol rarely. Physical examination: VITAL SIGNS: 97.9, 77, 29, 145/78, 89% on BiPAP 60% GENERAL: Laying in bed, tired, short of breath EYES: Pupils equal. Conjunctiva normal. HEENT: External appearance of nose and ears normal, oral cavity grossly normal. NECK: JVD not raised; masses not palpable. HEART: First and second heart sounds are normal; no edema. LUNGS: Respiratory rate increased; decreased breath sound some crackles. Not able to speak in full sentences ABDOMEN: Soft, nontender, liver spleen not palpable, no masses palpable. PSYCH: Sleepy MUSCULOSKELETAL:No Clubbing/cyanosis;muscles-grossly intact. OA INVESTIGATIONS, reviewed in the clinical context: July 03: White count was 6.8 hemoglobin 13.8 potassium 4.6 creatinine 0.56 June 30: White count 22.8 hemoglobin 13.8 potassium 3.7 creatinine 0.8 Chest CTA: Pleural calcifications. No pulmonary embolism. 2-D echocardiogram: Hypokinetic inferior wall. Mild to moderate mitral regurgitation, pulmonic regurgitation 5%. Troponin I less than 0.012 Procalcitonin 0.06. Urine Legionella antigen: Negative White count 11.0 hemoglobin 15.2 platelets 250 potassium 4.1 BUN 11 creatinine 0.67 ProBNP 755 Troponin I 0.015 Influenza type A, B, RSV, COVID-19 PCR: Noninjected EKG tracing personally reviewed by me-no sinus rhythm. Nonspecific ST-T wave changes. Chest x-ray film personally reviewed by me-hyperinflation. Some basal chronic changes. Pacemaker. Assessment plan: -Acute shortness of breath or loss for 5 days with increasing hypoxia. Patient had cold-like symptoms about a week ago. Finding is started having increasing shortness of breath and hypoxia with activity. Most likely a combination of exacerbation of pulmonary fibrosis and COPD. Cardiac ischemia .: Worsening -Angioplasty to circumflex -Anterior chest wall pain with inferior wall hypokinesis on 2-D echo.: Unstable angina Negative troponin. Cardiac catheterization -RCA is totally occluded. Circumflex and the distal portion beyond the stented segment 70-80% stenosis. Diffuse disease in LAD. Vein graft to the obtuse marginal occluded. And vein graft to PLV branch of the circumflex is patent. Multiple areas of narrowing 40%. Patient underwent angioplasty. It was felt by the embossograph operator that stent could not be appropriate in the anatomical findings. Angioplasty to the circumflex carried out -IV heparin monitoring-discontinued -Possible pneumonia. IV cefepime-per pulmonary -Acute on chronic hypoxic respiratory failure, multifactorial: Not improving Remains On BiPAP -Acute COPD exacerbation, and a previous smoker: Slow to respond DuoNeb. IV Solu-Medrol -Chronic pulmonary fibrosis possibly acute exacerbation of symptoms precipitated by viral infection IV Solu-Medrol -Coronary artery disease prior history of coronary bypass and stent Imdur 60 mg a day. Ranexa 5 mg twice daily added. -Essential hypertension Metoprolol 50 mg twice a day, Zestril 2.5 mg daily at bedtime, Imdur 30 mg a day -Depression otherwise specified Wellbutrin SR 150 mg twice a day -Paroxysmal atrial fibrillation, currently sinus rhythm Xarelto, Lopressor Continue BiPAP. IV Lasix. Steroids. Discussed with patient, Dr. Harris. Prognosis guarded. IV cefepime Past Medical History Past Medical History: Atrial Fibrillation, Coronary Artery Disease (CAD), COPD, GERD/Reflux, Hyperlipidemia, Hypertension, Musculoskeletal Disorder, Osteoarthritis (OA), Pneumonia, Respiratory Disorder Additional Past Medical History / Comment(s): Hx Covid 04/2021 with antibody treatment, Bradycardia with pacemaker, lumbar disc disorder, small hiatal hernia, ventral hernia, hx anemia, hx hemmorrhoids with bleeding, pulmonary fibrosis dx in 2021, home oxygen History of Any Multi-Drug Resistant Organisms: None Reported Past Surgical History: Coronary Bypass/CABG, Heart Catheterization, Heart Catheterization With Stent, Hernia Repair, Orthopedic Surgery, Pacemaker Additional Past Surgical History / Comment(s): Vasectomy, 3 vessel CABG 2004, BILATERAL CATARACT, VASECTOMY, BONE INFUSION MIDDLE LEFT FINGER CRUSHING INJURY, right knee arthroscopy, [employer] pacemaker placed 11/04/16, 3 stents to Circ 12/16/16, ventricular lead replacement 08/21/2018, hematoma evacuation from pacemaker site 08/23/2018. Past Anesthesia/Blood Transfusion Reactions: No Reported Reaction Date of Last Stent Placement:: 12/16/16 Type of Cardiac Device: Permanent Pacemaker Device Placement Date:: 11/04/16 Past Psychological History: No Psychological Hx Reported Additional Psychological History / Comment(s): Pt resides with his spouse. 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 He has a nebulizer. Has oxygen at home. Still drives. Smoking Status: Former smoker Past Alcohol Use History: Rare Additional Past Alcohol Use History / Comment(s): Quit smoking 7--16, smoked since age 17. Past Drug Use History: None Reported - Past Family History Father Family Medical History: Cancer Additional Family Medical History / Comment(s): . Mother Family Medical History: Coronary Artery Disease (CAD) Additional Family Medical History / Comment(s): HEART PROBLEMS. Sister(s) Family Medical History: Cancer Additional Family Medical History / Comment(s): Lymph nodes. Brother(s) Family Medical History: Cancer
--- NOTE | 2023-07-03 14:20 | P.PN ---
Subjective Progress Note Date: 07/03/23 Principal diagnosis: Acute on chronic hypoxic respiratory failure, multifactorial I am seeing this patient in new consultation today 06/25/2023 after the patient presented with worsening exertional dyspnea that started approximately 1 week ago. Patient is a 72-year-old white male with past medical history significant for COPD, pulmonary fibrosis, chronic oxygen dependence maintained on 2 L/m nasal cannula at bedtime, atrial fibrillation anticoagulated on Xarelto, coronary artery disease with previous CABG, he does have an implanted permanent pacemaker, hypertension, hyperlipidemia, among other things. Patient does follow in the pulmonary office with Dr. Farias. He does have moderate COPD with an FEV1 69% of predicted. He is chronically oxygen and steroid dependent. He utilizes a combination of Wixela and as needed albuterol. He also has biopsy- proven pulmonary fibrosis, UIP type. He is maintained on Ofev. Patient presented to emergency room yesterday morning complaining of worsening exertional dyspnea. He does have chronic dyspnea related to his pulmonary diseases. He states that his shortness of breath worsens with minimal exertion including walking to the bathroom. While climbing the stairs in his home, he says that his pulse oximeter level dropped to 70% while on supplemental 2 L home O2 yesterday. He does not normally wear his oxygen 14/04, but has been lately. He admits to URI like symptoms approximately 1 week ago. Denies any fevers, chills, myalgias, cough. He does admit severe substernal chest pain last week that resolved with 2 nitroglycerin tabs. He does have a significant cardiac history. Denies recent stress test. He denies any current chest pain, heart palpitations, heaviness, syncope, or lower extremities swelling. Patient is currently lying in bed, on 2 L/m nasal cannula, in no acute distress. Chest x- ray redemonstrated his underlying interstitial fibrosis, there is also possible superimposed left lower lobe infiltrate. CBC on arrival showed a WBC count 11, hemoglobin 15.2, hematocrit 47.3, platelets 250. CMP on arrival is unremarkable. Troponin was 0.015. ECG shows normal sinus rhythm without any obvious acute ischemic changes. There are chronic q wave changes in II, III, AVF; right axis deviation. NT proBNP not significantly elevated for age at 755. Procalcitonin level was low at 0.06. Negative for influenza, RSV, COVID-19. Patient was empirically started on azithromycin and Rocephin. Afebrile. Pat ient is hemodynamically stable. On today's evaluation of 06/26/2023, the patient continues to be short of breath although slightly improved compared to yesterday. Nevertheless, the patient is still having exertional hypoxemia. The patient is on a pulse ox is around 87%. The patient is currently on 2 L of oxygen by nasal cannula. No new complaints otherwise for now. Remains on bronchodilators. Remains on steroids. The patient's pro-calcitonin level is at 0.06. Troponins are negative. No altered mentation. No pleurisy. No hemoptysis. No edema in lower extremities. No chest pain at this point in time. Overall condition is stable. On today's evaluation of 06/27/2023 the patient is still having difficulties in breathing and some exertional hypoxemia. Pulse ox is dropping down to the low 80s while him being on 2 L of Oxymizer nasal cannula and this is unusual for the patient. He does recover with rest. Echocardiogram showed some segmental wall motion of the mouth is related to her previous AK. Left ejection fraction is well-preserved. The patient remains on bronchodilators. The patient remains on steroids. Zithromax was also added was added as an empiric antibiotic coverage. White cell count is higher at 29. D-dimer is at 0.24. Hemoglobin is at 14. BUN is at 80 with a creatinine of 0.5 and sodium level is at 138. On 06/28/2023, the patient is being seen for a follow-up. Still having exertional dyspnea and hypoxemia. I reviewed the CAT scan of the chest was done yesterday. There is chronic fibrosis in addition to that there is some increased interstitial changes peripherally in the lung bases. This can be potentially a superinfection or progression of his underlying pulmonary fibrosis. Patient is on Zithromax. I added Rocephin. Remains on O2 at 2 L/m nasal cannula. On 06/29/2023, the patient is essentially unchanged. He is still having some exertional dyspnea and fatigue. He is also having exertional hypoxemia. He is currently on 3 L of oxygen by nasal cannula. He developed some leukocytosis with a white second as high as 29. Subsequent white cell count dropped down to 24 with a hemoglobin of 14. BUN is at 23 with a creatinine of 0.6. No new complaints otherwise for now is on 3 L with a pulse ox of 96%. The patient is seen today 06/30/2023 in follow-up on the medical floor. He is currently sitting up in a chair at the bedside. Awake and alert in no acute distress. Maintaining O2 saturations in the 90s on 3 L/m per nasal cannula. He was having episodes of chest pain yesterday that was resolved with nitroglycerin. Cardiology is following. The plan is for transfer to cardiac stepdown unit and cardiac catheterization tomorrow. His Xarelto was discontinued and he was initiated on a heparin drip. Sputum culture revealed no growth. Blood cultures revealed no growth. His pro-calcitonin was 0.06. Ceftriaxone to be discontinued. He is continued on bronchodilators, Solu- Medrol. White count 22.8. Hemoglobin 13.8. Platelets 301. Sodium 133. Potassium 3.7. Bicarb 23. BUN 23. Creatinine 0.8. Glucose 132. Troponins have been negative. Chest x-ray shows no significant change compared to previous. Fibrotic changes noted. Patient was seen and reevaluated today on 07/01/2023, patient remains on 3 L nasal cannula, O2 saturations 90% on 3 L, patient has shortness of breath with any activity. He does have history of underlying idiopathic pulmonary fibrosis, biopsy proven. Patient is being considered for cardiac catheterization to be done by cardiology, he has apparently intermittent episodes of chest pain/unstable angina. Patient had a previous history of CABG and PTCA. He also has history of paroxysmal atrial fibrillation and sick sinus syndrome. Previous permanent pacemaker implantation. Not to mention the patient has COPD and underlying pulmonary fibrosis. Reevaluated today on 07/02/2023, patient is basically about the same, gradual to have cardiac catheterization today. Pulmonary-corey he does have intermittent cough and shortness of breath. Remains on 6 L O2 and his O2 sats is 89%. Patient does have chronic fibrotic changes/UIP, difficult to rule out underlying component of air space disease and/or CHF. But clinically felt to be less likely. Patient has WBC of 36.1, steadily rising since he was admitted, I am going to repeat his chest x-ray and empirically placed on antibiotics. Check pro-calcitonin level on this patient although his admission pro-calcitonin was 0.06 however this was a week ago. Patient was reevaluated today on 07/03/2023, remains on BiPAP since yesterday, he is on 08/26/60% with marginal O2 saturation. Patient continues to have shortness of breath, and intermittent cough. Follow-up chest x-ray today continues to show severe interstitial lung disease with diffuse coarse reticular opacities right more so than left. Chest x-ray now is much worse of the chest x-ray he had on 06/24/2023, patient seems to be developing a extremely rapid worsening course of pulmonary fibrosis, although the possibility of underlying pneumonia or underlying interstitial edema is not entirely ruled out, and we are giving the patient antibiotics and he is also receiving diuretics. Looking back at his x-rays and the progression of the interstitial changes, for some reason he had a dramatic worsening of the chest x-ray shortly after he came back from cardiac catheterization., Wondering if the patient developed flash pulmonary edema after his cardiac catheterization, and I will check a BNP level, and I will push more diuretics on the patient. In the meantime we continue antibiotics and continue bronchodilators and steroids as well as BiPAP Objective - Vital Signs Vital signs: Vital Signs Temp 97.9 F 07/03/23 08:20 Pulse 68 07/03/23 12:00 Resp 29 H 07/03/23 12:00 BP 145/78 07/03/23 12:00 Pulse Ox 89 L 07/03/23 12:00 FiO2 60 07/03/23 12:00 Intake & Output 07/02/23 07/03/23 07/03/23 18:59 06:59 18:59 Intake Total 605.871 Output Total 500 Balance 105.871 Weight 63.503 kg Intake: IV 450 Intake, IV Titration 155.871 Amount Heparin Sod,Pork in 0.45% 155.871 NaCl 25,000 unit In 0.45 % NaCl 1 250ml.bag @ 12 UNITS/KG/HR 7.62 mls/hr IV .Q24H [facility] Rx#: [id number] Oral 0 Output: Urine 500 Other: Voiding Method Toilet Urinal Urinal Urinal # Voids 1 - Exam Physical Exam: Revealed 72-year-old white male in no distress on BiPAP, 08/26/60% Head: Atraumatic normocephalic HEENT:[Neck is supple.] [No neck masses.] [No thyromegaly.] [No JVD.] Chest: [Fine Velcro rales and crackles at the bases Cardiac Exam: [Normal S1 and S2, no S3 gallop, no murmur.] Abdomen: [Soft, nontender, no megaly, no rebound, no guarding, normal bowel sounds.] Extremities: [No clubbing, no edema, no cyanosis.] Neurological Exam: [No focal neurologic deficit.] Alert and oriented 3 Psychiatric: Normal mood, affect and normal status examination. Skin: No rash - Labs CBC & Chem 7: 07/03/23 07:42 07/03/23 07:42 Labs: Abnormal Lab Results - Last 24 Hours (Table) 07/03/23 07/03/23 07/03/23 Range/Units 05:56 07:42 07:42 WBC 26.8 H (3.8-10.6) k/uL Neutrophils # 24.3 H (1.3-7.7) k/uL Lymphocytes # 0.5 L (1.0-4.8) k/uL Monocytes # 1.5 H (0-1.0) k/uL Sodium 132 L (137-145) mmol/L BUN 28 H (9-20) mg/dL Creatinine 0.56 L (0.66-1.25) mg/dL Glucose 107 H (74-99) mg/dL POC Glucose (mg/dL) 118 H (70-110) mg/dL Calcium 7.7 L (8.4-10.2) mg/dL Assessment and Plan Assessment: Impression: Acute on chronic hypoxic respiratory failure secondary to COPD and underlying pulmonary fibrosis/UIP. Suspect some component of flash pulmonary edema following cardiac catheterization. Chest pain/unstable angina being addressed by cardiology and being considered for cardiac catheterization. History of coronary arteriosclerosis and previous CABG as well as PCI History of implanted permanent pacemaker Benign essential hypertension Paroxysmal atrial fibrillation Dyslipidemia Ex-smoker Recommendation: Continue BiPAP Continue oxygen and titrate accordingly Diurese and check BNP level Continue cefepime empirically Pro calcitonin level is not impressive 0.09 Continue bronchodilators Increase the dose of steroids on the patient Continue heparin We will continue to follow. Time with Patient: Less than 30
[2023-07-03] MEDS: PATIENT'S OWN (Nintedanib Esylate [Ofev] 150 MG Capsule) PO SCH ×2 (14:30→22:48)
[2023-07-03 16:16] LABS: Glucose,Whole Blood 125 mg/dL (70-110)
[2023-07-03] MEDS: RIVAROXABAN 20 MG TAB PO SCH (17:36)
--- NOTE | 2023-07-03 18:29 | P.PN ---
Subjective Progress Note Date: 07/03/23 History of present illness: This is a 72-year-old male patient of Dr. LIDIA Falk with past medical history of coronary artery disease disease with prior bypass surgery and PTCA, paroxysmal atrial fibrillation on Xarelto for anticoagulation, history of sick sinus syndrome with permanent pacemaker, hypertension, hyperlipidemia, COPD, pulmonary fibrosis under the care of Dr. Farias. We have been asked to evaluate the patient for coronary artery disease. Patient states that last week he had cold symptoms such as a sore throat and runny nose. On Friday he started having some difficulty breathing and on Friday he was having more shortness of breath. His states that his pulse ox is usually 94-96% during the day without oxygen but on Friday pulse ox dropped down to 86%. Patient had episode of chest pain and took 2 nitroglycerin that seemed to help. On Friday, patient called Dr. Falk and was told to monitor, follow-up with Dr. Mcdowell. Patient contacted Dr. Farias and if he worsened her continue to have trouble, coming to the emergency center so he did. Patient denies having any chest pain at this time. Patient becomes significantly dyspneic with ambulating to the bathroom with oxygen. He has been seen by pulmonary medicine for pulmonary fibrosis doubt pneumonia. EKG sinus rhythm with a right bundle branch block Chest x-ray: patchy and interstitial infiltrates mid and lower lungs persist, slightly worse on the left base. Correlate for possible underlying fibrosis with superimposed infiltrate on the left. WBC 11, hemoglobin 15.2, platelet count 250. INR 1. Electrolytes and renal function normal. Troponin negative 1. ProBNP 755. Liver function tests are normal. Lactic acid 1.4. Pro-calcitonin 0.06. Influenza A, influenza B, Legionella, RSV, Covid 19 negative. Home cardiac medications: atorvastatin 40 mg at bedtime, Plavix 75 mg daily, Imdur 30 mg daily at noon, lisinopril 2.5 mg at bedtime, Lopressor 50 mg twice daily, Nitrostat as needed, Xarelto 50 mg at supper. 12/09/2021 PCI of the mid circumflex CT [place] at [facility] 11/20/2021 PCI unsuccessful to the mid circumflex. No gradient occluded LAD and nondominant RCA [place] circumflex stented at the ostium proximal portion patent, new lesion in the midportion of chronic total occlusion, ZABALA patent, SVG to OM occluded, SVG to PLF patent. Echocardiogram 12/2022 EF 50%, mild inferior wall hypokinesia, mild diastolic dysfunction. Moderate mitral regurgitation, moderate tricuspid regurgitation, moderate pulmonary hypertension. 06/26 Patient is seen today in follow-up. We increased Imdur 60 mg at noon and added Ranexa yesterday. Patient does state he had some tightness in his chest this morning with deep breathing. He denies having any tightness in his chest with ambulation. Patient did have a drop in his pulse ox on 80% this morning with ambulation. Heart rate is in the 80s and 90s, blood pressure running between 124/70 and 163/84. 06/27 Patient states that his reading is seeming to get better. He denies having any chest pain. He feels that he is ready to go home. He is currently on O2 at 2 L nasal cannula with pulse ox 93%, he's been afebrile, heart rate in the 60s, blood pressure 156/62. Echocardiogram reveals normal LV systolic function. Hypokinesis of the inferior wall suggestive prior CA. Mild to moderate mitral regurgitation. 06/30/2023 Cardiology was reconsulted to evaluate patient for chest pain. Patient examined this morning at the bedside. Patient reports he had 3 separate episodes yesterday of chest discomfort that resolved with nitro. At the time of examination this morning, patient denies chest pain or pressure. He denies shortness of breath. 07/01 Patient has been transferred to the [facility] unit from [facility]. He was initially scheduled for cardiac cath today with Dr. Sinclair and now rescheduled for tomorrow with Dr. LIDIA Falk. He denies having chest pain this mornig. Patient has slight lower extremity edema and BNP ordered which was 1060 which is about normal for his age. IV fluids discontinued. Noted white count 36.1. 07/03 Patient underwent cardiac catheterization with Dr. Falk yesterday. Right femoral access site appears intact. No signs of hematoma. PHYSICAL EXAM: VITAL SIGNS: Reviewed. GENERAL: Well-developed in no acute distress. NECK: Supple. No JVD or thyromegaly LUNGS: Respirations even and unlabored. Lungs essentially clear to auscultation bilaterally. HEART: Regular rate and rhythm. S1 and S2 heard. EXTREMITIES: Normal range of motion. No clubbing or cyanosis. Peripheral pulses intact. No lower extremity edema ASSESSMENT: Chest pain/[place] Acute on chronic hypoxic respiratory failure Coronary artery disease with prior bypass surgery and [employer] Paroxysmal atrial fibrillation History of sick sinus syndrome status post permanent pacemaker Hypertension Hyperlipidemia COPD Pulmonary fibrosis PLAN: Resume Xarelto Ranexa to 1000mg twice a day Continue Aspirin 81 mg daily, Plavix 75 mg daily Continue additional cardiac medications f/u tomorrrow and adjust meds if needed Possible d/c tomorrow Objective - Vital Signs Vital signs: Vital Signs Temp 98.1 F 07/03/23 16:00 Pulse 73 07/03/23 16:00 Resp 32 H 07/03/23 16:00 BP 105/63 07/03/23 16:00 Pulse Ox 89 L 07/03/23 12:00 FiO2 60 07/03/23 14:41 Intake & Output 07/02/23 07/03/23 07/03/23 18:59 06:59 18:59 Intake Total 605.871 Output Total 500 Balance 105.871 Weight 63.503 kg Intake: IV 450 Intake, IV Titration 155.871 Amount Heparin Sod,Pork in 0.45% 155.871 NaCl 25,000 unit In 0.45 % NaCl 1 250ml.bag @ 12 UNITS/KG/HR 7.62 mls/hr IV .Q24H [facility] Rx#: [id number] Oral 0 Output: Urine 500 Other: Voiding Method Toilet Urinal Urinal Urinal # Voids 1 - Labs CBC & Chem 7: 07/03/23 07:42 07/03/23 07:42 Labs: Abnormal Lab Results - Last 24 Hours (Table) 07/03/23 07/03/23 07/03/23 Range/Units 05:56 07:42 07:42 WBC 26.8 H (3.8-10.6) k/uL Neutrophils # 24.3 H (1.3-7.7) k/uL Lymphocytes # 0.5 L (1.0-4.8) k/uL Monocytes # 1.5 H (0-1.0) k/uL Sodium 132 L (137-145) mmol/L BUN 28 H (9-20) mg/dL Creatinine 0.56 L (0.66-1.25) mg/dL Glucose 107 H (74-99) mg/dL POC Glucose (mg/dL) 118 H (70-110) mg/dL Calcium 7.7 L (8.4-10.2) mg/dL 07/03/23 Range/Units 16:14 WBC (3.8-10.6) k/uL Neutrophils # (1.3-7.7) k/uL Lymphocytes # (1.0-4.8) k/uL Monocytes # (0-1.0) k/uL Sodium (137-145) mmol/L BUN (9-20) mg/dL Creatinine (0.66-1.25) mg/dL Glucose (74-99) mg/dL POC Glucose (mg/dL) 125 H (70-110) mg/dL Calcium (8.4-10.2) mg/dL
[2023-07-03 19:18] LABS: Glucose,Whole Blood 182 mg/dL (70-110)
[2023-07-03] MEDS: ATORVASTATIN 80 MG TAB PO SCH (20:12)
[2023-07-03] MEDS: lisinopriL 5 MG TAB PO SCH (20:12)
[2023-07-03] MEDS: IPRATROPIUM-ALBUTEROL 3 ML NEB INHALATION PRN (21:40)
[2023-07-04] MEDS: CEFEPIME 2 GM in SODIUM CHLORIDE 0.9% 100 ML IVPB SCH ×3 (03:08→21:18)
[2023-07-04] MEDS: NITROGLYCERIN OINT 1 INCH/GM PACKET TOPICAL SCH ×2 (06:00→11:13)
[2023-07-04] MEDS: methylPREDNISolone SOD SUCCI 125 MG/2 ML VIAL IV SCH ×3 (06:05→17:08)
[2023-07-04 06:23] LABS: Glucose,Whole Blood 125 mg/dL (70-110)
--- NOTE | 2023-07-04 08:48 | XR ---
EXAMINATION TYPE: XR chest 1V portable DATE OF EXAM: 07/04/2023 HISTORY: Shortness of breath. COMPARISON: 07/03/2023 TECHNIQUE: Single view of the chest is submitted. FINDINGS: Demonstrated are scattered senescent parenchymal change. Coarse interstitial infiltrates throughout both lung aquino greatest on the right persist and are ess entially unchanged. The heart is stable. Hilar and mediastinal structures are within normal limits. Degenerative changes are seen of the dorsal spine. IMPRESSION: 1. Coarse interstitial infiltrates throughout both lung aquino greatest on the right persist and are essentially unchanged.
[2023-07-04] MEDS: BENZONATATE 100 MG CAP PO SCH ×3 (08:49→22:24)
[2023-07-04] MEDS: ALPRAZolam 0.5 MG TAB PO PRN ×3 (08:49→23:04)
[2023-07-04] MEDS: RANOLAZINE 500 MG TAB.ER.12H PO SCH ×2 (08:50→22:24)
[2023-07-04] MEDS: PANTOPRAZOLE 40 MG TABLET PO SCH (08:52)
[2023-07-04] MEDS: FERROUS SULFATE 325 MG TAB PO SCH (08:53)
[2023-07-04] MEDS: METOPROLOL TARTRATE 50 MG TAB PO SCH ×2 (08:53→22:23)
[2023-07-04] MEDS: FUROSEMIDE 10 MG/ML 2 ML VIAL IV SCH (08:53)
[2023-07-04] MEDS: CLOPIDOGREL 75 MG TAB PO SCH (08:53)
[2023-07-04] MEDS: GABAPENTIN 300 MG CAP PO SCH ×2 (08:53→22:24)
[2023-07-04] MEDS: buPROPion SR 150 MG TABLET.ER PO SCH ×2 (09:01→22:24)
[2023-07-04] MEDS: ASPIRIN 81 MG PO SCH (09:01)
[2023-07-04] MEDS: PATIENT'S OWN (Nintedanib Esylate [Ofev] 150 MG Capsule) PO SCH ×2 (09:08→22:59)
[2023-07-04] MEDS ORDERED: FUROSEMIDE 10 MG/ML 2 ML VIAL IV ONE (10:15)
[2023-07-04] MEDS: ALBUTEROL NEBULIZED 2.5 MG/3 ML INHALATION PRN (11:06)
[2023-07-04] MEDS: FORMOTEROL FUMARATE 20 MCG/2 ML NEBU INHALATION SCH ×2 (11:06→22:24)
[2023-07-04] MEDS: BUDESONIDE 1 MG/2 ML NEBU INHALATION SCH ×2 (11:06→22:24)
[2023-07-04 11:24] LABS: Glucose,Whole Blood 123 mg/dL (70-110)
--- NOTE | 2023-07-04 14:55 | US ---
EXAMINATION TYPE: US venous doppler duplex UE LT DATE OF EXAM: 07/04/2023 COMPARISON: NONE CLINICAL INDICATION: Male, 72 years old with history of r/o dvt; left arm swelling SIDE PERFORMED: left Left Arm: Negative for DVT no DVT seen in visualized vessels, edema noted throughout, especially at cubital fossa under bruised area on arm exam technically difficult as patient was unable to change positioning IMPRESSION: Grayscale, color doppler, spectral doppler imaging performed of the deep veins of the upper extremiti es. There is normal flow, compressibility and vascular waveforms.
--- NOTE | 2023-07-04 15:51 | P.PN ---
Subjective Progress Note Date: 07/04/23 Principal diagnosis: Acute on chronic hypoxic respiratory failure, multifactorial I am seeing this patient in new consultation today 06/25/2023 after the patient presented with worsening exertional dyspnea that started approximately 1 week ago. Patient is a 72-year-old white male with past medical history significant for COPD, pulmonary fibrosis, chronic oxygen dependence maintained on 2 L/m nasal cannula at bedtime, atrial fibrillation anticoagulated on Xarelto, coronary artery disease with previous CABG, he does have an implanted permanent pacemaker, hypertension, hyperlipidemia, among other things. Patient does follow in the pulmonary office with Dr. Farias. He does have moderate COPD with an FEV1 69% of predicted. He is chronically oxygen and steroid dependent. He utilizes a combination of Wixela and as needed albuterol. He also has biopsy- proven pulmonary fibrosis, UIP type. He is maintained on Ofev. Patient presented to emergency room yesterday morning complaining of worsening exertional dyspnea. He does have chronic dyspnea related to his pulmonary diseases. He states that his shortness of breath worsens with minimal exertion including walking to the bathroom. While climbing the stairs in his home, he says that his pulse oximeter level dropped to 70% while on supplemental 2 L home O2 yesterday. He does not normally wear his oxygen 14/04, but has been lately. He admits to URI like symptoms approximately 1 week ago. Denies any fevers, chills, myalgias, cough. He does admit severe substernal chest pain last week that resolved with 2 nitroglycerin tabs. He does have a significant cardiac history. Denies recent stress test. He denies any current chest pain, heart palpitations, heaviness, syncope, or lower extremities swelling. Patient is currently lying in bed, on 2 L/m nasal cannula, in no acute distress. Chest x- ray redemonstrated his underlying interstitial fibrosis, there is also possible superimposed left lower lobe infiltrate. CBC on arrival showed a WBC count 11, hemoglobin 15.2, hematocrit 47.3, platelets 250. CMP on arrival is unremarkable. Troponin was 0.015. ECG shows normal sinus rhythm without any obvious acute ischemic changes. There are chronic q wave changes in II, III, AVF; right axis deviation. NT proBNP not significantly elevated for age at 755. Procalcitonin level was low at 0.06. Negative for influenza, RSV, COVID-19. Patient was empirically started on azithromycin and Rocephin. Afebrile. Pat ient is hemodynamically stable. On today's evaluation of 06/26/2023, the patient continues to be short of breath although slightly improved compared to yesterday. Nevertheless, the patient is still having exertional hypoxemia. The patient is on a pulse ox is around 87%. The patient is currently on 2 L of oxygen by nasal cannula. No new complaints otherwise for now. Remains on bronchodilators. Remains on steroids. The patient's pro-calcitonin level is at 0.06. Troponins are negative. No altered mentation. No pleurisy. No hemoptysis. No edema in lower extremities. No chest pain at this point in time. Overall condition is stable. On today's evaluation of 06/27/2023 the patient is still having difficulties in breathing and some exertional hypoxemia. Pulse ox is dropping down to the low 80s while him being on 2 L of Oxymizer nasal cannula and this is unusual for the patient. He does recover with rest. Echocardiogram showed some segmental wall motion of the mouth is related to her previous [place]. Left ejection fraction is well-preserved. The patient remains on bronchodilators. The patient remains on steroids. Zithromax was also added was added as an empiric antibiotic coverage. White cell count is higher at 29. D-dimer is at 0.24. Hemoglobin is at 14. BUN is at 80 with a creatinine of 0.5 and sodium level is at 138. On 06/28/2023, the patient is being seen for a follow-up. Still having exertional dyspnea and hypoxemia. I reviewed the CAT scan of the chest was done yesterday. There is chronic fibrosis in addition to that there is some increased interstitial changes peripherally in the lung bases. This can be potentially a superinfection or progression of his underlying pulmonary fibrosis. Patient is on Zithromax. I added Rocephin. Remains on O2 at 2 L/m nasal cannula. On 06/29/2023, the patient is essentially unchanged. He is still having some exertional dyspnea and fatigue. He is also having exertional hypoxemia. He is currently on 3 L of oxygen by nasal cannula. He developed some leukocytosis with a white second as high as 29. Subsequent white cell count dropped down to 24 with a hemoglobin of 14. BUN is at 23 with a creatinine of 0.6. No new complaints otherwise for now is on 3 L with a pulse ox of 96%. The patient is seen today 06/30/2023 in follow-up on the medical floor. He is currently sitting up in a chair at the bedside. Awake and alert in no acute distress. Maintaining O2 saturations in the 90s on 3 L/m per nasal cannula. He was having episodes of chest pain yesterday that was resolved with nitroglycerin. Cardiology is following. The plan is for transfer to cardiac stepdown unit and cardiac catheterization tomorrow. His Xarelto was discontinued and he was initiated on a heparin drip. Sputum culture revealed no growth. Blood cultures revealed no growth. His pro-calcitonin was 0.06. Ceftriaxone to be discontinued. He is continued on bronchodilators, Solu- Medrol. White count 22.8. Hemoglobin 13.8. Platelets 301. Sodium 133. Potassium 3.7. Bicarb 23. BUN 23. Creatinine 0.8. Glucose 132. Troponins have been negative. Chest x-ray shows no significant change compared to previous. Fibrotic changes noted. Patient was seen and reevaluated today on 07/01/2023, patient remains on 3 L nasal cannula, O2 saturations 90% on 3 L, patient has shortness of breath with any activity. He does have history of underlying idiopathic pulmonary fibrosis, biopsy proven. Patient is being considered for cardiac catheterization to be done by cardiology, he has apparently intermittent episodes of chest pain/unstable angina. Patient had a previous history of CABG and PTCA. He also has history of paroxysmal atrial fibrillation and sick sinus syndrome. Previous permanent pacemaker implantation. Not to mention the patient has COPD and underlying pulmonary fibrosis. Reevaluated today on 07/02/2023, patient is basically about the same, gradual to have cardiac catheterization today. Pulmonary-corey he does have intermittent cough and shortness of breath. Remains on 6 L O2 and his O2 sats is 89%. Patient does have chronic fibrotic changes/UIP, difficult to rule out underlying component of air space disease and/or CHF. But clinically felt to be less likely. Patient has WBC of 36.1, steadily rising since he was admitted, I am going to repeat his chest x-ray and empirically placed on antibiotics. Check pro-calcitonin level on this patient although his admission pro-calcitonin was 0.06 however this was a week ago. Patient was reevaluated today on 07/03/2023, remains on BiPAP since yesterday, he is on 08/26/60% with marginal O2 saturation. Patient continues to have shortness of breath, and intermittent cough. Follow-up chest x-ray today continues to show severe interstitial lung disease with diffuse coarse reticular opacities right more so than left. Chest x-ray now is much worse of the chest x-ray he had on 06/24/2023, patient seems to be developing a extremely rapid worsening course of pulmonary fibrosis, although the possibility of underlying pneumonia or underlying interstitial edema is not entirely ruled out, and we are giving the patient antibiotics and he is also receiving diuretics. Looking back at his x-rays and the progression of the interstitial changes, for some reason he had a dramatic worsening of the chest x-ray shortly after he came back from cardiac catheterization., Wondering if the patient developed flash pulmonary edema after his cardiac catheterization, and I will check a BNP level, and I will push more diuretics on the patient. In the meantime we continue antibiotics and continue bronchodilators and steroids as well as BiPAP Reevaluated today on 07/04/2023 patient remains on BiPAP., Patient is still having difficulty taking off his BiPAP as he gets extremely short of breath. Chest x-ray is showing slight improvement but clinically he is about the same. Patient remains on steroids, bronchodilators, diuretics, antibiotics, his WBC count is coming down to 26.8, rest of the labs are basically unremarkable, his BNP level was not elevated and his pro-calcitonin level is 0.09 also not significantly elevated. Nonetheless the patient continues to have significant difficulty with his shortness of breath. I am going to recommend a d-dimer on this patient, and if elevated may consider CT angiogram of the chest. Patient was on heparin yesterday, and today he is on Plavix. Objective - Vital Signs Vital signs: Vital Signs Temp 98.3 F 07/04/23 11:18 Pulse 65 07/04/23 11:30 Resp 32 H 07/04/23 11:18 BP 114/60 07/04/23 11:18 Pulse Ox 94 L 07/04/23 11:18 FiO2 80 07/04/23 14:48 Intake & Output 07/03/23 07/04/23 07/04/23 18:59 06:59 18:59 Intake Total 375 Output Total 600 600 Balance -600 -225 Weight 63.503 kg Intake: Intake, IV Titration 100 Amount Cefepime 2 gm In Sodium 100 Chloride 0.9% 100 ml @ 25 mls/hr IVPB Q8H COUNT INCLUDES THE [facility] Rx#: [id number] Oral 275 Output: Urine 600 600 Other: Voiding Method Urinal Urinal - Exam Physical Exam: Revealed 72-year-old white male in no distress on BiPAP, 80% FiO2. 08/27 Head: Atraumatic normocephalic HEENT:[Neck is supple.] [No neck masses.] [No thyromegaly.] [No JVD.] Chest: [Fine Velcro rales and crackles at the bases Cardiac Exam: [Normal S1 and S2, no S3 gallop, no murmur.] Abdomen: [Soft, nontender, no megaly, no rebound, no guarding, normal bowel sounds.] Extremities: [No clubbing, no edema, no cyanosis.] Neurological Exam: [No focal neurologic deficit.] Alert and oriented 3 Psychiatric: Normal mood, affect and normal status examination. Skin: No rash - Labs CBC & Chem 7: 07/03/23 07:42 07/03/23 07:42 Labs: Abnormal Lab Results - Last 24 Hours (Table) 07/03/23 07/03/23 07/04/23 Range/Units 16:14 19:15 06:21 POC Glucose (mg/dL) 125 H 182 H 125 H (70-110) mg/dL 07/04/23 Range/Units 11:20 POC Glucose (mg/dL) 123 H (70-110) mg/dL Assessment and Plan Assessment: Impression: Acute on chronic hypoxic respiratory failure secondary to COPD and underlying pulmonary fibrosis/UIP. Suspect some component of flash pulmonary edema following cardiac catheterization. Chest pain/unstable angina being addressed by cardiology and being considered for cardiac catheterization. History of coronary arteriosclerosis and previous CABG as well as PCI History of implanted permanent pacemaker Benign essential hypertension Paroxysmal atrial fibrillation Dyslipidemia Ex-smoker Recommendation: Continue BiPAP Continue oxygen and titrate accordingly Diurese Ordered d-dimer and if elevated may consider a CT angiogram of the chest on this patient Pro calcitonin level is not impressive 0.09 Continue bronchodilators Continue steroids for his underlying interstitial lung disease/pulmonary fibrosis We will continue to follow. Time with Patient: Less than 30
[2023-07-04 16:41] LABS: Glucose,Whole Blood 111 mg/dL (70-110)
--- NOTE | 2023-07-04 17:13 | P.PN ---
Progress Note - Text Progress Note Date: 07/04/23 Chief Complaint: Short of breath This is a pleasant 72-year-old, follows with Dr. Emilia Bob. 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 Normally uses 2 L of oxygen at night. Sometimes excessive activity in the daytime. About a week ago patient developed 40 to describe neck: Neck symptoms the runny nose. Subsequently's been noticing that is getting increasingly short of breath example going up the stairs. And oxygen pulse ox dropped down to 70-82%. No cough. No fever no chills. Just tired. Negative self COVID negative test. Patient had 3 bouts of COVID 19 2020. Patient at that time and received BAM. June 25: Up in a chair. at the bedside. Did desaturate going to the bathroom. Changed to Perforomist and nebulized steroids. IV steroids to continue. Follow with pulmonary. Discussed. Seen by cardiology. Increased Im dur. Added Ranexa. June 30: I resumed care of the patient today. Up in a chair. He does some chest pain yesterday resolved by nitro.. Seen by cardiology. Plan for cardiac catheterization. at the bedside. July 01: Cardiac catheterization postponed for tomorrow. Does get tired with activity. Discussed with patient daughter the bedside. On IV heparin. July 02: Patient underwent cardiac catheterization Dr. LIDIA Falk today. RCA is totally occluded. Circumflex and the distal portion beyond the stented segment 70-80% stenosis. Diffuse disease in LAD. Vein graft to the obtuse m arginal occluded. And vein graft to PLV branch of the circumflex is patent. Multiple areas of narrowing 40%. Patient underwent angioplasty. It was felt by the dinking machine operator that stent could not be appropriate in the anatomical findings. Patient return to the floor. Postprocedure shortness of breath. Placed on a BiPAP. July 03: Remains on BiPAP. Short of breath. Getting IV Lasix. Also lesly nues steroids. Discussed with patient and Dr. Harris. Follow with cardiology. July 04: Patient remains clinically short of breath. On BiPAP. 70-80%. We'll try him to feed with a straw. Tired. Left arm swelling noted. Doppler ultrasound was negative for DVT. We'll consult vascular. No pain. Has been present for about 2-3 weeks he states.Chest x-ray film personally reviewed by me-coarse infiltrates Active Medications Acetaminophen (Acetaminophen Tab 325 Mg Tab) 650 mg PO Q6H PRN PRN Reason: Pain Al Hydroxide/Mg Hydroxide (Mag Hydrox/Al Hydrox/Simeth 30 Ml Cup) 30 ml PO Q4HR PRN PRN Reason: Heartburn Albuterol Sulfate (Albuterol Nebulized 2.5 Mg/3 Ml) 2.5 mg INHALATION RT-Q4H PRN PRN Reason: Shortness Of Breath Or Wheezing Last Admin: 07/04/23 11:06 Dose: 2.5 mg Albuterol/Ipratropium (Ipratropium-Albuterol 3 Ml Neb) 3 ml INHALATION RT-QID PRN PRN Reason: Shortness Of Breath Last Admin: 07/03/23 21:40 Dose: 3 ml Alprazolam (Alprazolam 0.25 Mg Tab) 0.25 mg PO Q6HR PRN PRN Reason: Mild Anxiety Last Admin: 07/03/23 08:33 Dose: 0.25 mg Alprazolam (Alprazolam 0.5 Mg Tab) 0.5 mg PO Q6HR PRN PRN Reason: Moderate Anxiety Last Admin: 07/04/23 17:09 Dose: 0.5 mg Aspirin (Aspirin 81 Mg) 81 mg PO DAILY [facility] Last Admin: 07/04/23 09:01 Dose: 81 mg Atorvastatin Calcium (Atorvastatin 80 Mg Tab) 80 mg PO HS [facility] Last Admin: 07/03/23 20:12 Dose: 80 mg Atropine Sulfate (Atropine Sulfate 0.1 Mg/Ml 10ml Syringe) 0.5 mg IV ONCE PRN PRN Reason: Symptomatic Bradycardia Benzonatate (Benzonatate 100 Mg Cap) 200 mg PO TID [facility] Last Admin: 07/04/23 08:49 Dose: 200 mg Budesonide (Budesonide 1 Mg/2 Ml Nebu) 1 mg INHALATION RT-BID [facility] Last Admin: 07/04/23 11:06 Dose: 1 mg Bupropion HCl (Bupropion Sr 150 Mg Tablet.Er) 150 mg PO BID [facility] Last Admin: 07/04/23 09:01 Dose: 150 mg Calcium Carbonate/Glycine (Calcium Carbonate 500 Mg Chewable) 1,000 mg PO Q4HR PRN PRN Reason: Dyspepsia Clopidogrel Bisulfate (Clopidogrel 75 Mg Tab) 75 mg PO DAILY [facility] Last Admin: 07/04/23 08:53 Dose: 75 mg Ferrous Sulfate (Ferrous Sulfate 325 Mg Tab) 325 mg PO DAILY [facility] Last Admin: 07/04/23 08:53 Dose: 325 mg Formoterol Fumarate (Formoterol Fumarate 20 Mcg/2 Ml Nebu) 20 mcg INHALATION RT-BID [facility] Last Admin: 07/04/23 11:06 Dose: 20 mcg Furosemide (Furosemide 10 Mg/Ml 4 Ml Vial) 40 mg IV Q12HR [facility] Gabapentin (Gabapentin 300 Mg Cap) 300 mg PO BID [facility] Last Admin: 07/04/23 08:53 Dose: 300 mg Guaifenesin/Codeine Phosphate (Guaifenesin-Coden 100-10mg/5ml 10 Ml Cup) 10 ml PO Q6HR PRN PRN Reason: Cough Last Admin: 07/02/23 15:40 Dose: 10 ml Cefepime HCl 2 gm/ Sodium (Chloride) 100 mls @ 25 mls/hr IVPB Q8H [facility] Last Admin: 07/04/23 11:14 Dose: 25 mls/hr Lactulose (Lactulose 20 Gm/30 Ml Cup) 20 gm PO DAILY PRN PRN Reason: Constipation Last Admin: 06/28/23 10:17 Dose: 20 gm Lisinopril (Lisinopril 5 Mg Tab) 5 mg PO HS [facility] Last Admin: 07/03/23 20:12 Dose: 5 mg Loratadine (Loratadine 10 Mg Tab) 10 mg PO DAILY PRN PRN Reason: Allergy Symptoms Lorazepam (Lorazepam 0.5 Mg Tab) 0.5 mg PO Q6HR PRN PRN Reason: Anxiety Melatonin (Melatonin 3 Mg Tablet) 3 mg PO HS PRN PRN Reason: Insomnia Last Admin: 06/29/23 20:27 Dose: 3 mg Methylprednisolone Sodium Succinate (Methylprednisolone Sod Succi 125 Mg/2 Ml Vial) 60 mg IV Q6HR [facility] Last Admin: 07/04/23 17:08 Dose: 60 mg Metoprolol Tartrate (Metoprolol Tartrate 50 Mg Tab) 50 mg PO BID [facility] Last Admin: 07/04/23 08:53 Dose: 50 mg Miscellaneous Information (Pneumonia Protocol Utilized 1 Each Misc) 1 each PO ONCE PRN PRN Reason: Per Protocol Naloxone HCl (Naloxone 0.4 Mg/Ml 1 Ml Vial) 0.2 mg IV Q2M PRN PRN Reason: Opioid Reversal Nitroglycerin (Nitroglycerin Sl Tabs 0.4 Mg Tab) 0.4 mg SUBLINGUAL Q5M PRN PRN Reason: Chest Pain Last Admin: 06/29/23 17:52 Dose: 0.4 mg Nitroglycerin (Nitroglycerin Oint 1 Inch/Gm Packet) 0.5 inch TOPICAL Q6HR [facility] Last Admin: 07/04/23 11:13 Dose: Not Given Patient's Own ( Nintedanib Esylate [ Ofev] 150 Mg Capsule ) 150 mg PO BID [facility] Last Admin: 07/04/23 09:08 Dose: Not Given Ondansetron HCl (Ondansetron 4 Mg/2 Ml Vial) 4 mg IVP Q8HR PRN PRN Reason: Nausea And Vomiting Pantoprazole Sodium (Pantoprazole 40 Mg Tablet) 40 mg PO DAILY [facility] Last Admin: 07/04/23 08:52 Dose: 40 mg Polyethylene Glycol (Polyethylene Glycol 3350 17 Gm Powd.Pack) 17 gm PO HS PRN PRN Reason: Constipation Last Admin: 06/26/23 08:20 Dose: 17 gm Ranolazine (Ranolazine 500 Mg Tab.Er.12h) 1,000 mg PO Q12HR [facility] Last Admin: 07/04/23 08:50 Dose: 1,000 mg Rivaroxaban (Rivaroxaban 20 Mg Tab) 20 mg PO W/SUPPER [facility]; Protocol Last Admin: 07/03/23 17:36 Dose: 20 mg Zolpidem Tartrate (Zolpidem 5 Mg Tab) 5 mg PO HS PRN PRN Reason: Insomnia Past medical history to include: Atrial fibrillation, CAD, COPD, GERD, hyperlipidemia, hypertension, osteoarthritis, COVID 19, bradycardia with pacemaker, lumbar disc disorder, ventral hernia, pulmonary fibrosis, nocturnal oxygen, CAD with stent and coronary bypass in 2004 Social history: . 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 Smoked for about 48 years since the age of 17 stopped in 2016. Alcohol rarely. Physical examination: VITAL SIGNS: 98.3, 68, 32, 110/67, 94% on BiPAP at 80% GENERAL: Laying in bed, tired, short of breath EYES: Pupils equal. Conjunctiva normal. HEENT: External appearance of nose and ears normal, oral cavity grossly normal. NECK: JVD not raised; masses not palpable. HEART: First and second heart sounds are normal; no edema. LUNGS: Respiratory rate increased; decreased breath sound some crackles. Not able to speak in full sentences . Accessory muscles of working ABDOMEN: Soft, nontender, liver spleen not palpable, no masses palpable. PSYCH: AO 3, mood affect anxious MUSCULOSKELETAL:No Clubbing/cyanosis;muscles-grossly intact. OA INVESTIGATIONS, reviewed in the clinical context: July 04: Procalcitonin 0.11 Doppler ultrasound left upper extremity [July 04]: Negative for DVT July 03: White count was 6.8 hemoglobin 13.8 potassium 4.6 creatinine 0.56 June 30: White count 22.8 hemoglobin 13.8 potassium 3.7 creatinine 0.8 Chest CTA: Pleural calcifications. No pulmonary embolism. 2-D echocardiogram: Hypokinetic inferior wall. Mild to moderate mitral regurgitation, pulmonic regurgitation 5%. Troponin I less than 0.012 Procalcitonin 0.06. Urine Legionella antigen: Negative White count 11.0 hemoglobin 15.2 platelets 250 potassium 4.1 BUN 11 creatinine 0.67 ProBNP 755 Troponin I 0.015 Influenza type A, B, RSV, COVID-19 PCR: Noninjected EKG tracing personally reviewed by me-no sinus rhythm. Nonspecific ST-T wave changes. Chest x-ray film personally reviewed by me-hyperinflation. Some basal chronic changes. Pacemaker. Assessment plan: -Acute shortness of breath or loss for 5 days with increasing hypoxia. Patient had cold-like symptoms about a week ago. Finding is started having increasing shortness of breath and hypoxia with activity. likely a combination of exacerbation of pulmonary fibrosis and COPD. Cardiac ischemia .: Worsening -Angioplasty to circumflex -Anterior chest wall pain with inferior wall hypokinesis on 2-D echo.: Unstable angina Negative troponin. Cardiac catheterization -RCA is totally occluded. Circumflex and the distal portion beyond the stented segment 70-80% stenosis. Diffuse disease in LAD. Vein graft to the obtuse marginal occluded. And vein graft to PLV branch of the circumflex is patent. Multiple areas of narrowing 40%. Patient underwent angioplasty. It was felt by the dinking machine operator that stent could not be appropriate in the anatomical findings. Angioplasty to the circumflex carried out -Probable superimposed pneumonia IV cefepime. -IV heparin monitoring-discontinued -Acute on chronic hypoxic respiratory failure, multifactorial: Not improving BiPAP-80% -Acute COPD exacerbation, and a previous smoker: Slow to respond DuoNeb. IV Solu-Medrol -Chronic pulmonary fibrosis possibly acute exacerbation of symptoms precipitated by viral infection IV Solu-Medrol -Coronary artery disease prior history of coronary bypass and stent Imdur 60 mg a day. Ranexa 5 mg twice daily added. -Essential hypertension Metoprolol 50 mg twice a day, Zestril 2.5 mg daily at bedtime, Imdur 30 mg a day -Depression otherwise specified Wellbutrin SR 150 mg twice a day -Paroxysmal atrial fibrillation, currently sinus rhythm Xarelto, Lopressor Continue BiPAP. IV Lasix. Steroids. . IV cefepime Past Medical History Past Medical History: Atrial Fibrillation, Coronary Artery Disease (CAD), COPD, GERD/Reflux, Hyperlipidemia, Hypertension, Musculoskeletal Disorder, Osteoarthritis (OA), Pneumonia, Respiratory Disorder Additional Past Medical History / Comment(s): Hx Covid 04/2021 with antibody treatment, Bradycardia with pacemaker, lumbar disc disorder, small hiatal hernia, ventral hernia, hx anemia, hx hemmorrhoids with bleeding, pulmonary fibrosis dx in 2021, home oxygen History of Any Multi-Drug Resistant Organisms: None Reported Past Surgical History: Coronary Bypass/CABG, Heart Catheterization, Heart Catheterization With Stent, Hernia Repair, Orthopedic Surgery, Pacemaker Additional Past Surgical History / Comment(s): Vasectomy, 3 vessel CABG 2004, BILATERAL CATARACT, VASECTOMY, BONE INFUSION MIDDLE LEFT FINGER CRUSHING INJURY, right knee arthroscopy, [employer] pacemaker placed 11/04/16, 3 stents to Circ 12/16/16, ventricular lead replacement 08/21/2018, hematoma evacuation from pacemaker site 08/23/2018. Past Anesthesia/Blood Transfusion Reactions: No Reported Reaction Date of Last Stent Placement:: 12/16/16 Type of Cardiac Device: Permanent Pacemaker Device Placement Date:: 11/04/16 Past Psychological History: No Psychological Hx Reported Additional Psychological History / Comment(s): Pt resides with his spouse. 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 He has a nebulizer. Has oxygen at home. Still drives. Smoking Status: Former smoker Past Alcohol Use History: Rare Additional Past Alcohol Use History / Comment(s): Quit smoking 7--16, smoked since age 17. Past Drug Use History: None Reported - Past Family History Father Family Medical History: Cancer Additional Family Medical History / Comment(s): . Mother Family Medical History: Coronary Artery Disease (CAD) Additional Family Medical History / Comment(s): HEART PROBLEMS. Sister(s) Family Medical History: Cancer Additional Family Medical History / Comment(s): Lymph nodes. Brother(s) Family Medical History: Cancer
[2023-07-04] MEDS: IPRATROPIUM-ALBUTEROL 3 ML NEB INHALATION PRN ×2 (17:28→22:24)
[2023-07-04] MEDS: RIVAROXABAN 20 MG TAB PO SCH (18:07)
--- NOTE | 2023-07-04 18:15 | P.PN ---
Subjective Progress Note Date: 07/04/23 History of present illness: This is a 72-year-old male patient of Dr. LIDIA Falk with past medical history of coronary artery disease disease with prior bypass surgery and PTCA, paroxysmal atrial fibrillation on Xarelto for anticoagulation, history of sick sinus syndrome with permanent pacemaker, hypertension, hyperlipidemia, COPD, pulmonary fibrosis under the care of Dr. Farias. We have been asked to evaluate the patient for coronary artery disease. Patient states that last week he had cold symptoms such as a sore throat and runny nose. On Friday he started having some difficulty breathing and on Friday he was having more shortness of breath. His states that his pulse ox is usually 94-96% during the day without oxygen but on Friday pulse ox dropped down to 86%. Patient had episode of chest pain and took 2 nitroglycerin that seemed to help. On Friday, patient called Dr. Falk and was told to monitor, follow-up with Dr. Mcdowell. Patient contacted Dr. Farias and if he worsened her continue to have trouble, coming to the emergency center so he did. Patient denies having any chest pain at this time. Patient becomes significantly dyspneic with ambulating to the bathroom with oxygen. He has been seen by pulmonary medicine for pulmonary fibrosis doubt pneumonia. EKG sinus rhythm with a right bundle branch block Chest x-ray: patchy and interstitial infiltrates mid and lower lungs persist, slightly worse on the left base. Correlate for possible underlying fibrosis with superimposed infiltrate on the left. WBC 11, hemoglobin 15.2, platelet count 250. INR 1. Electrolytes and renal function normal. Troponin negative 1. ProBNP 755. Liver function tests are normal. Lactic acid 1.4. Pro-calcitonin 0.06. Influenza A, influenza B, Legionella, RSV, Covid 19 negative. Home cardiac medications: atorvastatin 40 mg at bedtime, Plavix 75 mg daily, Imdur 30 mg daily at noon, lisinopril 2.5 mg at bedtime, Lopressor 50 mg twice daily, Nitrostat as needed, Xarelto 50 mg at supper. 12/09/2021 PCI of the mid circumflex CT [facility] at [facility] 11/20/2021 PCI unsuccessful to the mid circumflex. No gradient occluded LAD and nondominant RCA jackson circumflex stented at the ostium proximal portion patent, new lesion in the midportion of chronic total occlusion, ZABALA patent, SVG to OM occluded, SVG to PLF patent. Echocardiogram 12/2022 EF 50%, mild inferior wall hypokinesia, mild diastolic dysfunction. Moderate mitral regurgitation, moderate tricuspid regurgitation, moderate pulmonary hypertension. 06/26 Patient is seen today in follow-up. We increased Imdur 60 mg at noon and added Ranexa yesterday. Patient does state he had some tightness in his chest this morning with deep breathing. He denies having any tightness in his chest with ambulation. Patient did have a drop in his pulse ox on 80% this morning with ambulation. Heart rate is in the 80s and 90s, blood pressure running between 124/70 and 163/84. 06/27 Patient states that his reading is seeming to get better. He denies having any chest pain. He feels that he is ready to go home. He is currently on O2 at 2 L nasal cannula with pulse ox 93%, he's been afebrile, heart rate in the 60s, blood pressure 156/62. Echocardiogram reveals normal LV systolic function. Hypokinesis of the inferior wall suggestive prior IA. Mild to moderate mitral regurgitation. 06/30/2023 Cardiology was reconsulted to evaluate patient for chest pain. Patient examined this morning at the bedside. Patient reports he had 3 separate episodes yesterday of chest discomfort that resolved with nitro. At the time of examination this morning, patient denies chest pain or pressure. He denies shortness of breath. 07/01 Patient has been transferred to the [facility] unit from [facility]. He was initially scheduled for cardiac cath today with Dr. Sinclair and now rescheduled for tomorrow with Dr. LIDIA Falk. He denies having chest pain this mornig. Patient has slight lower extremity edema and BNP ordered which was 1060 which is about normal for his age. IV fluids discontinued. Noted white count 36.1. 07/03 Patient underwent cardiac catheterization with Dr. Falk yesterday. Right femoral access site appears intact. No signs of hematoma. 07/04 Patient underwent cardiac cath day before yesterday. Patient received 4 stents. Patient continues to be on BiPAP support continues to be short of breath. PHYSICAL EXAM: VITAL SIGNS: Reviewed. GENERAL: Well-developed in no acute distress. NECK: Supple. No JVD or thyromegaly LUNGS: Respirations even and unlabored. Lungs essentially clear to auscultation bilaterally. HEART: Regular rate and rhythm. S1 and S2 heard. EXTREMITIES: Normal range of motion. No clubbing or cyanosis. Peripheral pulses intact. 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 Continue IV diuretic. Continue antibiotics for pneumonia management as per primary team Objective - Vital Signs Vital signs: Vital Signs Temp 98.3 F 07/04/23 16:35 Pulse 67 07/04/23 17:29 Resp 32 H 07/04/23 16:35 BP 110/67 07/04/23 16:35 Pulse Ox 94 L 07/04/23 16:35 FiO2 80 07/04/23 17:26 Intake & Output 07/03/23 07/04/23 07/04/23 18:59 06:59 18:59 Intake Total 375 Output Total 600 600 Balance -600 -225 Weight 63.503 kg Intake: Intake, IV Titration 100 Amount Cefepime 2 gm In Sodium 100 Chloride 0.9% 100 ml @ 25 mls/hr IVPB Q8H [facility] Rx#: [id number] Oral 275 Output: Urine 600 600 Other: Voiding Method Urinal Urinal - Labs CBC & Chem 7: 07/03/23 07:42 07/03/23 07:42 Labs: Abnormal Lab Results - Last 24 Hours (Table) 07/03/23 07/04/23 07/04/23 Range/Units 19:15 06:21 09:49 D-Dimer (<0.60) mg/L FEU POC Glucose (mg/dL) 182 H 125 H (70-110) mg/dL Procalcitonin 0.11 H (0.02-0.09) ng/mL 07/04/23 07/04/23 07/04/23 Range/Units 11:20 16:37 16:39 D-Dimer 0.63 H (<0.60) mg/L FEU POC Glucose (mg/dL) 123 H 111 H (70-110) mg/dL Procalcitonin (0.02-0.09) ng/mL
[2023-07-04 20:10] LABS: Glucose,Whole Blood 168 mg/dL (70-110)
[2023-07-04] MEDS: FUROSEMIDE 10 MG/ML 4 ML VIAL IV SCH (21:18)
[2023-07-04] MEDS: ATORVASTATIN 80 MG TAB PO SCH (22:23)
[2023-07-04] MEDS: lisinopriL 5 MG TAB PO SCH (22:24)
[2023-07-04] MEDS: ACETAMINOPHEN TAB 325 MG TAB PO PRN (22:25)
[2023-07-04] MEDS: MELATONIN 3 MG TABLET PO PRN (23:04)
[2023-07-05] MEDS: methylPREDNISolone SOD SUCCI 125 MG/2 ML VIAL IV SCH ×4 (00:21→18:20)
[2023-07-05] MEDS: CEFEPIME 2 GM in SODIUM CHLORIDE 0.9% 100 ML IVPB SCH ×3 (05:23→20:38)
[2023-07-05 06:18] LABS: Glucose,Whole Blood 120 mg/dL (70-110)
[2023-07-05] MEDS: IPRATROPIUM-ALBUTEROL 3 ML NEB INHALATION PRN ×2 (09:00→11:45)
[2023-07-05] MEDS: FORMOTEROL FUMARATE 20 MCG/2 ML NEBU INHALATION SCH ×2 (09:00→20:45)
[2023-07-05] MEDS: BUDESONIDE 1 MG/2 ML NEBU INHALATION SCH ×2 (09:00→20:45)
[2023-07-05] MEDS: FUROSEMIDE 10 MG/ML 4 ML VIAL IV SCH ×2 (09:24→20:38)
[2023-07-05 09:46] LABS: Basophils # (A) 0.4 k/uL (0-0.2); Basophils % (A) 1 %; Eosinophils % (A) 0 %; HCT 31.9 % (39.0-53.0); Lymphocytes # (A) 0.2 k/uL (1.0-4.8); Lymphocytes % (A) 1 %; MCH 31.1 pg (25.0-35.0); MCHC 33.4 g/dL (31.0-37.0); Mean Platelet Volume 8.5; Monocytes # (A) 1.4 k/uL (0-1.0); Monocytes % (A) 4 %; Neutrophils # (A) 38.9 k/uL (1.3-7.7); Neutrophils % (A) 94 %; Platelet Count 253 k/uL (150-450); RBC 3.44 m/uL (4.30-5.90); RDW 15.8 % (11.5-15.5); WBC 41.4 k/uL (3.8-10.6)
[2023-07-05 09:51] LABS: African American GFR (CKD) >90 (>60 ml/min/1.73 sqM); Anion Gap 6 mmol/L; Blood Urea Nitrogen 59 mg/dL (9-20); Calcium 8.1 mg/dL (8.4-10.2); Carbon Dioxide 26 mmol/L (22-30); Chloride 104 mmol/L (98-107); Glucose 128 mg/dL (74-99); Non-African American GFR(CKD) >90 (>60 ml/min/1.73 sqM); Potassium 4.7 mmol/L (3.5-5.1); Sodium 136 mmol/L (137-145)
[2023-07-05 09:52] LABS: HGB 10.7 gm/dL (13.0-17.5)
[2023-07-05 10:29] LABS: RBC Morphology Normal
[2023-07-05 11:37] LABS: Glucose,Whole Blood 141 mg/dL (70-110)
[2023-07-05] MEDS ORDERED: IPRATROPIUM-ALBUTEROL 3 ML NEB INHALATION PRN (11:51)
[2023-07-05] MEDS: BENZONATATE 100 MG CAP PO SCH ×3 (12:03→22:03)
[2023-07-05] MEDS: buPROPion SR 150 MG TABLET.ER PO SCH ×2 (12:03→22:02)
[2023-07-05] MEDS: ASPIRIN 81 MG PO SCH (12:03)
[2023-07-05] MEDS: FERROUS SULFATE 325 MG TAB PO SCH (12:04)
[2023-07-05] MEDS: METOPROLOL TARTRATE 50 MG TAB PO SCH ×2 (12:04→22:02)
[2023-07-05] MEDS: PATIENT'S OWN (Nintedanib Esylate [Ofev] 150 MG Capsule) PO SCH ×2 (12:04→22:02)
[2023-07-05] MEDS: CLOPIDOGREL 75 MG TAB PO SCH (12:04)
[2023-07-05] MEDS: GABAPENTIN 300 MG CAP PO SCH ×2 (12:04→22:02)
[2023-07-05] MEDS: RANOLAZINE 500 MG TAB.ER.12H PO SCH ×2 (12:04→22:03)
[2023-07-05] MEDS: PANTOPRAZOLE 40 MG TABLET PO SCH (12:04)
[2023-07-05] MEDS: IPRATROPIUM-ALBUTEROL 3 ML NEB INHALATION SCH ×3 (12:11→20:45)
--- NOTE | 2023-07-05 12:18 | P.PN ---
Subjective Progress Note Date: 07/05/23 Principal diagnosis: Acute on chronic hypoxic respiratory failure, multifactorial I am seeing this patient in new consultation today 06/25/2023 after the patient presented with worsening exertional dyspnea that started approximately 1 week ago. Patient is a 72-year-old white male with past medical history significant for COPD, pulmonary fibrosis, chronic oxygen dependence maintained on 2 L/m nasal cannula at bedtime, atrial fibrillation anticoagulated on Xarelto, coronary artery disease with previous CABG, he does have an implanted permanent pacemaker, hypertension, hyperlipidemia, among other things. Patient does follow in the pulmonary office with Dr. Farias. He does have moderate COPD with an FEV1 69% of predicted. He is chronically oxygen and steroid dependent. He utilizes a combination of Wixela and as needed albuterol. He also has biopsy- proven pulmonary fibrosis, UIP type. He is maintained on Ofev. Patient presented to emergency room yesterday morning complaining of worsening exertional dyspnea. He does have chronic dyspnea related to his pulmonary diseases. He states that his shortness of breath worsens with minimal exertion including walking to the bathroom. While climbing the stairs in his home, he says that his pulse oximeter level dropped to 70% while on supplemental 2 L home O2 yesterday. He does not normally wear his oxygen 14/04, but has been lately. He admits to URI like symptoms approximately 1 week ago. Denies any fevers, chills, myalgias, cough. He does admit severe substernal chest pain last week that resolved with 2 nitroglycerin tabs. He does have a significant cardiac history. Denies recent stress test. He denies any current chest pain, heart palpitations, heaviness, syncope, or lower extremities swelling. Patient is currently lying in bed, on 2 L/m nasal cannula, in no acute distress. Chest x- ray redemonstrated his underlying interstitial fibrosis, there is also possible superimposed left lower lobe infiltrate. CBC on arrival showed a WBC count 11, hemoglobin 15.2, hematocrit 47.3, platelets 250. CMP on arrival is unremarkable. Troponin was 0.015. ECG shows normal sinus rhythm without any obvious acute ischemic changes. There are chronic q wave changes in II, III, AVF; right axis deviation. NT proBNP not significantly elevated for age at 89. Procalcitonin level was low at 0.06. Negative for influenza, RSV, COVID-19. Patient was empirically started on azithromycin and Rocephin. Afebrile. Pat ient is hemodynamically stable. On today's evaluation of 06/26/2023, the patient continues to be short of breath although slightly improved compared to yesterday. Nevertheless, the patient is still having exertional hypoxemia. The patient is on a pulse ox is around 87%. The patient is currently on 2 L of oxygen by nasal cannula. No new complaints otherwise for now. Remains on bronchodilators. Remains on steroids. The patient's pro-calcitonin level is at 0.06. Troponins are negative. No altered mentation. No pleurisy. No hemoptysis. No edema in lower extremities. No chest pain at this point in time. Overall condition is stable. On today's evaluation of 06/27/2023 the patient is still having difficulties in breathing and some exertional hypoxemia. Pulse ox is dropping down to the low 80s while him being on 2 L of Oxymizer nasal cannula and this is unusual for the patient. He does recover with rest. Echocardiogram showed some segmental wall motion of the mouth is related to her previous AK. Left ejection fraction is well-preserved. The patient remains on bronchodilators. The patient remains on steroids. Zithromax was also added was added as an empiric antibiotic coverage. White cell count is higher at 29. D-dimer is at 0.24. Hemoglobin is at 14. BUN is at 80 with a creatinine of 0.5 and sodium level is at 138. On 06/28/2023, the patient is being seen for a follow-up. Still having exertional dyspnea and hypoxemia. I reviewed the CAT scan of the chest was done yesterday. There is chronic fibrosis in addition to that there is some increased interstitial changes peripherally in the lung bases. This can be potentially a superinfection or progression of his underlying pulmonary fibrosis. Patient is on Zithromax. I added Rocephin. Remains on O2 at 2 L/m nasal cannula. On 06/29/2023, the patient is essentially unchanged. He is still having some exertional dyspnea and fatigue. He is also having exertional hypoxemia. He is currently on 3 L of oxygen by nasal cannula. He developed some leukocytosis with a white second as high as 29. Subsequent white cell count dropped down to 24 with a hemoglobin of 14. BUN is at 23 with a creatinine of 0.6. No new complaints otherwise for now is on 3 L with a pulse ox of 96%. The patient is seen today 06/30/2023 in follow-up on the medical floor. He is currently sitting up in a chair at the bedside. Awake and alert in no acute distress. Maintaining O2 saturations in the 90s on 3 L/m per nasal cannula. He was having episodes of chest pain yesterday that was resolved with nitroglycerin. Cardiology is following. The plan is for transfer to cardiac stepdown unit and cardiac catheterization tomorrow. His Xarelto was discontinued and he was initiated on a heparin drip. Sputum culture revealed no growth. Blood cultures revealed no growth. His pro-calcitonin was 0.06. Ceftriaxone to be discontinued. He is continued on bronchodilators, Solu- Medrol. White count 22.8. Hemoglobin 13.8. Platelets 301. Sodium 133. Potassium 3.7. Bicarb 23. BUN 23. Creatinine 0.8. Glucose 132. Troponins have been negative. Chest x-ray shows no significant change compared to previous. Fibrotic changes noted. Patient was seen and reevaluated today on 07/01/2023, patient remains on 3 L nasal cannula, O2 saturations 90% on 3 L, patient has shortness of breath with any activity. He does have history of underlying idiopathic pulmonary fibrosis, biopsy proven. Patient is being considered for cardiac catheterization to be done by cardiology, he has apparently intermittent episodes of chest pain/unstable angina. Patient had a previous history of CABG and PTCA. He also has history of paroxysmal atrial fibrillation and sick sinus syndrome. Previous permanent pacemaker implantation. Not to mention the patient has COPD and underlying pulmonary fibrosis. Reevaluated today on 07/02/2023, patient is basically about the same, gradual to have cardiac catheterization today. Pulmonary-corey he does have intermittent cough and shortness of breath. Remains on 6 L O2 and his O2 sats is 89%. Patient does have chronic fibrotic changes/UIP, difficult to rule out underlying component of air space disease and/or CHF. But clinically felt to be less likely. Patient has WBC of 36.1, steadily rising since he was admitted, I am going to repeat his chest x-ray and empirically placed on antibiotics. Check pro-calcitonin level on this patient although his admission pro-calcitonin was 0.06 however this was a week ago. Patient was reevaluated today on 07/03/2023, remains on BiPAP since yesterday, he is on 08/26/60% with marginal O2 saturation. Patient continues to have shortness of breath, and intermittent cough. Follow-up chest x-ray today continues to show severe interstitial lung disease with diffuse coarse reticular opacities right more so than left. Chest x-ray now is much worse of the chest x-ray he had on 06/24/2023, patient seems to be developing a extremely rapid worsening course of pulmonary fibrosis, although the possibility of underlying pneumonia or underlying interstitial edema is not entirely ruled out, and we are giving the patient antibiotics and he is also receiving diuretics. Looking back at his x-rays and the progression of the interstitial changes, for some reason he had a dramatic worsening of the chest x-ray shortly after he came back from cardiac catheterization., Wondering if the patient developed flash pulmonary edema after his cardiac catheterization, and I will check a BNP level, and I will push more diuretics on the patient. In the meantime we continue antibiotics and continue bronchodilators and steroids as well as BiPAP Reevaluated today on 07/04/2023 patient remains on BiPAP., Patient is still having difficulty taking off his BiPAP as he gets extremely short of breath. Chest x-ray is showing slight improvement but clinically he is about the same. Patient remains on steroids, bronchodilators, diuretics, antibiotics, his WBC count is coming down to 26.8, rest of the labs are basically unremarkable, his BNP level was not elevated and his pro-calcitonin level is 0.09 also not significantly elevated. Nonetheless the patient continues to have significant difficulty with his shortness of breath. I am going to recommend a d-dimer on this patient, and if elevated may consider CT angiogram of the chest. Patient was on heparin yesterday, and today he is on Plavix. Reevaluated today on 07/05/2023, patient remains extremely marginal, remains on BiPAP, 08/26/90% patient is becoming basically BiPAP dependent chest x-ray today continues to show the same similar findings of diffuse interstitial lung disease right more so than left consistent with usual interstitial pneumonitis/idiopathic pulmonary fibrosis. Continues to have intermittent episodes of leukemoid reactions his white count today is 41.4. Patient was placed empirically on cefepime. Not much of the changes noted on the chest x- ray today, at least is not enough to explain his profound hypoxemia. It is sort of surprising to me that the patient's condition deteriorated shortly after he underwent cardiac catheterization. I am recommending a repeat echocardiogram on this patient to assess LV function. In the meantime the patient is receiving and responding well to diuretics. He has been in negative balance all along. His BUN today is 59 and creatinine 0.70. His d-dimer yesterday was 0.63 and the patient did have a negative CT angiogram for pulmonary embolism a week ago. Hence I see no signs of repeating his CT angiogram, not to mention the patient is also on Xarelto. Considering the situation being marginal I am sending the patient down to the ICU for close observation, and in the meantime I'm recommending repeat echocardiogram. Discussed with the at bedside, if his condition gets any worse, we will recommend intubation and mechanical ventilation. Objective - Vital Signs Vital signs: Vital Signs Temp 97.8 F 07/05/23 08:20 Pulse 82 07/05/23 12:01 Resp 26 H 07/05/23 08:20 BP 116/65 07/05/23 08:20 Pulse Ox 91 L 07/05/23 09:00 FiO2 90 07/05/23 11:27 Intake & Output 07/04/23 07/05/23 07/05/23 18:59 06:59 18:59 Intake Total 100 Output Total 875 900 Balance -775 900 Intake: Intake, IV Titration 100 Amount Cefepime 2 gm In Sodium 100 Chloride 0.9% 100 ml @ 25 mls/hr IVPB Q8H [facility] Rx#: [id number] Output: Urine 875 900 Other: Voiding Method Urinal Urinal # Voids 0 # Bowel Movements 1 - Exam Physical Exam: Revealed 72-year-old white male in no distress on BiPAP, 08/27/90% Head: Atraumatic normocephalic HEENT:[Neck is supple.] [No neck masses.] [No thyromegaly.] [No JVD.] Chest: [Fine Velcro rales and crackles at the bases Cardiac Exam: [Normal S1 and S2, no S3 gallop, no murmur.] Abdomen: [Soft, nontender, no megaly, no rebound, no guarding, normal bowel sounds.] Extremities: [No clubbing, no edema, no cyanosis.] Neurological Exam: [No focal neurologic deficit.] Alert and oriented 3 Psychiatric: Normal mood, affect and normal status examination. Skin: No rash - Labs CBC & Chem 7: 07/05/23 09:04 07/05/23 09:04 Labs: Abnormal Lab Results - Last 24 Hours (Table) 07/04/23 07/04/23 07/04/23 Range/Units 09:49 16:37 16:39 WBC (3.8-10.6) k/uL RBC (4.30-5.90) m/uL Hgb (13.0-17.5) gm/dL Hct (39.0-53.0) % RDW (11.5-15.5) % Neutrophils # (1.3-7.7) k/uL Lymphocytes # (1.0-4.8) k/uL Monocytes # (0-1.0) k/uL Basophils # (0-0.2) k/uL D-Dimer 0.63 H (<0.60) mg/L FEU Sodium (137-145) mmol/L BUN (9-20) mg/dL Glucose (74-99) mg/dL POC Glucose (mg/dL) 111 H (70-110) mg/dL Calcium (8.4-10.2) mg/dL Procalcitonin 0.11 H (0.02-0.09) ng/mL 07/04/23 07/05/23 07/05/23 Range/Units 20:09 06:16 09:04 WBC 41.4 H (3.8-10.6) k/uL RBC 3.44 L (4.30-5.90) m/uL Hgb 10.7 L D (13.0-17.5) gm/dL Hct 31.9 L (39.0-53.0) % RDW 15.8 H (11.5-15.5) % Neutrophils # 38.9 H (1.3-7.7) k/uL Lymphocytes # 0.2 L (1.0-4.8) k/uL Monocytes # 1.4 H (0-1.0) k/uL Basophils # 0.4 H (0-0.2) k/uL D-Dimer (<0.60) mg/L FEU Sodium (137-145) mmol/L BUN (9-20) mg/dL Glucose (74-99) mg/dL POC Glucose (mg/dL) 168 H 120 H (70-110) mg/dL Calcium (8.4-10.2) mg/dL Procalcitonin (0.02-0.09) ng/mL 07/05/23 07/05/23 Range/Units 09:04 11:36 WBC (3.8-10.6) k/uL RBC (4.30-5.90) m/uL Hgb (13.0-17.5) gm/dL Hct (39.0-53.0) % RDW (11.5-15.5) % Neutrophils # (1.3-7.7) k/uL Lymphocytes # (1.0-4.8) k/uL Monocytes # (0-1.0) k/uL Basophils # (0-0.2) k/uL D-Dimer (<0.60) mg/L FEU Sodium 136 L (137-145) mmol/L BUN 59 H (9-20) mg/dL Glucose 128 H (74-99) mg/dL POC Glucose (mg/dL) 141 H (70-110) mg/dL Calcium 8.1 L (8.4-10.2) mg/dL Procalcitonin (0.02-0.09) ng/mL Assessment and Plan Assessment: Impression: Acute on chronic hypoxic respiratory failure secondary to COPD and underlying pulmonary fibrosis/UIP. Suspect some component of flash pulmonary edema following cardiac catheterization. Chest pain/unstable angina being addressed by cardiology and being considered for cardiac catheterization. History of coronary arteriosclerosis and previous CABG as well as PCI History of implanted permanent pacemaker Benign essential hypertension Paroxysmal atrial fibrillation Dyslipidemia Ex-smoker Recommendation: Considering the patient is not making any improvement as a matter of fact he seems to be clinically worse I'm recommending transferring the patient down to the ICU Continue BiPAP and titrate accordingly Continue diuretics No need for a CT angiogram since the patient had a recent one and his d-dimer was 0.63 Continue antibiotics empirically although his Procrit started level was 0.09 Continue bronchodilators and continue steroids Prognosis is relatively guarded, we'll continue to follow Time with Patient: Less than 30
--- NOTE | 2023-07-05 15:07 | P.GSCN ---
History of Present Illness Consult date: 07/05/23 Reason for Consult: left upper extremity swelling History of present illness: 72 year old male currently being treated for respiratory compromise developed left upper extremity swelling since admission. Per his family who is at the bedside states he has a history of left sided pacemaker with multiple revisions as well as swelling in the left arm which required clot removal. He states his left arm is better than the last couple of days and denies any pain or weakness in the arm. His only complaint is shortness of breath. He did have an ultrasound of the left upper extremity yesterday which was negative for dvt. Review of Systems All systems: negative (what is mentioned in the PMH) Past Medical History Past Medical History: Atrial Fibrillation, Coronary Artery Disease (CAD), COPD, GERD/Reflux, Hyperlipidemia, Hypertension, Musculoskeletal Disorder, Osteoarthritis (OA), Pneumonia, Respiratory Disorder Additional Past Medical History / Comment(s): Hx Covid 04/2021 with antibody treatment, Bradycardia with pacemaker, lumbar disc disorder, small hiatal hernia, ventral hernia, hx anemia, hx hemmorrhoids with bleeding, pulmonary fibrosis dx in 2021, home oxygen History of Any Multi-Drug Resistant Organisms: None Reported Past Surgical History: Coronary Bypass/CABG, Heart Catheterization, Heart Catheterization With Stent, Hernia Repair, Orthopedic Surgery, Pacemaker Additional Past Surgical History / Comment(s): Vasectomy, 3 vessel CABG 2004, BILATERAL CATARACT, VASECTOMY, BONE INFUSION MIDDLE LEFT FINGER CRUSHING INJURY, right knee arthroscopy, [employer] pacemaker placed 11/04/16, 3 stents to Circ 12/16/16, ventricular lead replacement 08/21/2018, hematoma evacuation from pacemaker site 08/23/2018. Past Anesthesia/Blood Transfusion Reactions: No Reported Reaction Date of Last Stent Placement:: 12/16/16 Type of Cardiac Device: Permanent Pacemaker Device Placement Date:: 11/04/16 Past Psychological History: No Psychological Hx Reported Additional Psychological History / Comment(s): Pt resides with his spouse. 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 He has a nebulizer. Has oxygen at home. Still drives. Smoking Status: Former smoker Past Alcohol Use History: Rare Additional Past Alcohol Use History / Comment(s): Quit smoking 7--16, smoked since age 17. Past Drug Use History: None Reported - Past Family History Father Family Medical History: Cancer Additional Family Medical History / Comment(s): . Mother Family Medical History: Coronary Artery Disease (CAD) Additional Family Medical History / Comment(s): HEART PROBLEMS. Sister(s) Family Medical History: Cancer Additional Family Medical History / Comment(s): Lymph nodes. Brother(s) Family Medical History: Cancer Medications and Allergies Home Medications Medication Instructions Recorded Confirmed Type Gabapentin [Neurontin] 300 mg PO BID 10/08/14 06/24/23 History Ferrous Sulfate [Iron (65 MG 325 mg PO DAILY 09/03/16 06/24/23 History Elemental)] polyethylene glycoL 3350 [Miralax] 17 gm PO HS PRN 10/30/16 06/24/23 History Acetaminophen Tab [Tylenol] 650 mg PO Q6H PRN 07/19/18 06/24/23 History Albuterol Inhaler [Ventolin Hfa 1 - 2 puff INHALATION RT-QID PRN 07/19/18 06/24/23 History Inhaler] Budesonide/Formoterol Fumarate 2 puff INHALATION RT-BID 07/19/18 06/24/23 History [Symbicort 160-4.5 Mcg Inhaler] Ipratropium-Albuterol Nebulize 3 ml INHALATION RT-QID PRN 07/19/18 06/24/23 History [Duoneb 0.5 mg-3 mg/3 ml Soln] Rivaroxaban [Xarelto] 15 mg PO W/SUPPER 07/19/18 06/24/23 History buPROPion HCL [Wellbutrin SR] 150 mg PO BID 07/19/18 06/24/23 History predniSONE 5 mg PO DAILY 07/19/18 06/24/23 History Pantoprazole Sodium [Protonix] 40 mg PO DAILY 08/19/18 06/24/23 History lisinopriL [Zestril] 2.5 mg PO HS 08/19/18 06/24/23 History Isosorbide Mononitrate ER [Imdur] 30 mg PO DAILY@1200 10/19/18 06/24/23 History Atorvastatin [Lipitor] 40 mg PO HS 11/19/21 06/24/23 History Fluticasone Nasal [place] [Flonase 2 spray EA NOSTRIL DAILY 11/19/21 06/24/23 History Nasal [place]] Metoprolol Tartrate [Lopressor] 50 mg PO BID 11/19/21 06/24/23 History Nitroglycerin Sl Tabs [Nitrostat] 0.4 mg SUBLINGUAL Q5M PRN 11/19/21 06/24/23 History Zinc 50 mg PO DAILY 11/19/21 06/24/23 History Loratadine [Claritin] 10 mg PO DAILY PRN 06/24/23 06/24/23 History Nintedanib Esylate [Ofev] 150 mg PO BID 06/24/23 06/24/23 History Clopidogrel [Plavix] 75 mg PO DAILY #90 07/02/23 06/24/23 Rx Allergies Allergy/AdvReac Type Severity Reaction Status Date / Time ibuprofen [From Motrin IB] AdvReac CANNOT Verified 06/24/23 16:50 TAKE PER CARDIOLIGIST Surgical - Exam Vital Signs Temp Pulse Resp BP Pulse Ox 98 F 59 L 22 148/67 92 L 06/24/23 11:09 06/24/23 11:09 06/24/23 11:09 06/24/23 11:09 06/24/23 11:09 - General well developed, moderate distress - Eyes PERRL, normal ocular movement - ENT normal pinna, normal nares - Neck no masses - Respiratory on a venti mask - Cardiovascular Rhythm: regular - Abdomen Abdomen: soft, non tender - Psychiatric oriented to time, oriented to person, oriented to place palpable radial pulse bilaterally. palpable dp and pt pulses bilaterally 2+ edema bilaterally Results left upper extremity ultrasound demonstrates no evidence of dvt - Labs 07/05/23 09:04 07/05/23 09:04 Abnormal Lab Results - Last 24 Hours (Table) 07/04/23 07/04/23 07/04/23 Range/Units 09:49 16:37 16:39 WBC (3.8-10.6) k/uL RBC (4.30-5.90) m/uL Hgb (13.0-17.5) gm/dL Hct (39.0-53.0) % RDW (11.5-15.5) % Neutrophils # (1.3-7.7) k/uL Lymphocytes # (1.0-4.8) k/uL Monocytes # (0-1.0) k/uL Basophils # (0-0.2) k/uL D-Dimer 0.63 H (<0.60) mg/L FEU Sodium (137-145) mmol/L BUN (9-20) mg/dL Glucose (74-99) mg/dL POC Glucose (mg/dL) 111 H (70-110) mg/dL Calcium (8.4-10.2) mg/dL Procalcitonin 0.11 H (0.02-0.09) ng/mL 07/04/23 07/05/23 07/05/23 Range/Units 20:09 06:16 09:04 WBC 41.4 H (3.8-10.6) k/uL RBC 3.44 L (4.30-5.90) m/uL Hgb 10.7 L D (13.0-17.5) gm/dL Hct 31.9 L (39.0-53.0) % RDW 15.8 H (11.5-15.5) % Neutrophils # 38.9 H (1.3-7.7) k/uL Lymphocytes # 0.2 L (1.0-4.8) k/uL Monocytes # 1.4 H (0-1.0) k/uL Basophils # 0.4 H (0-0.2) k/uL D-Dimer (<0.60) mg/L FEU Sodium (137-145) mmol/L BUN (9-20) mg/dL Glucose (74-99) mg/dL POC Glucose (mg/dL) 168 H 120 H (70-110) mg/dL Calcium (8.4-10.2) mg/dL Procalcitonin (0.02-0.09) ng/mL 07/05/23 07/05/23 Range/Units 09:04 11:36 WBC (3.8-10.6) k/uL RBC (4.30-5.90) m/uL Hgb (13.0-17.5) gm/dL Hct (39.0-53.0) % RDW (11.5-15.5) % Neutrophils # (1.3-7.7) k/uL Lymphocytes # (1.0-4.8) k/uL Monocytes # (0-1.0) k/uL Basophils # (0-0.2) k/uL D-Dimer (<0.60) mg/L FEU Sodium 136 L (137-145) mmol/L BUN 59 H (9-20) mg/dL Glucose 128 H (74-99) mg/dL POC Glucose (mg/dL) 141 H (70-110) mg/dL Calcium 8.1 L (8.4-10.2) mg/dL Procalcitonin (0.02-0.09) ng/mL Diabetes panel 07/05/23 Range/Units 09:04 Sodium 136 L (137-145) mmol/L Potassium 4.7 (3.5-5.1) mmol/L Chloride 104 (98-107) mmol/L Carbon Dioxide 26 (22-30) mmol/L BUN 59 H (9-20) mg/dL Creatinine 0.70 (0.66-1.25) mg/dL Glucose 128 H (74-99) mg/dL Calcium 8.1 L (8.4-10.2) mg/dL Calcium panel 07/05/23 Range/Units 09:04 Calcium 8.1 L (8.4-10.2) mg/dL Pituitary panel 07/05/23 Range/Units 09:04 Sodium 136 L (137-145) mmol/L Potassium 4.7 (3.5-5.1) mmol/L Chloride 104 (98-107) mmol/L Carbon Dioxide 26 (22-30) mmol/L BUN 59 H (9-20) mg/dL Creatinine 0.70 (0.66-1.25) mg/dL Glucose 128 H (74-99) mg/dL Calcium 8.1 L (8.4-10.2) mg/dL Adrenal panel 07/05/23 Range/Units 09:04 Sodium 136 L (137-145) mmol/L Potassium 4.7 (3.5-5.1) mmol/L Chloride 104 (98-107) mmol/L Carbon Dioxide 26 (22-30) mmol/L BUN 59 H (9-20) mg/dL Creatinine 0.70 (0.66-1.25) mg/dL Glucose 128 H (74-99) mg/dL Calcium 8.1 L (8.4-10.2) mg/dL Assessment and Plan Assessment: left upper extremity edema secondary to pacemaker acute respiratory failure COPD CAD History of pacemaker with multiple revisions Plan: Reviewed ultrasound with him and his family- no dvt- no indication for any vascular intervention Recommend elevation of the left arm when he experiences edema Thank you for the consultation. Will sign off and re-eval at your request.
--- NOTE | 2023-07-05 16:36 | XR ---
EXAMINATION TYPE: XR chest 1V portable DATE OF EXAM: 07/05/2023 10:59 AM CLINICAL INDICATION:Male, 72 years old with history of Hypoxemia; [facility] COMPARISON: Chest radiograph from one day prior. TECHNIQUE: XR chest 1V portable Frontal view of the chest. FINDINGS: Demonstrated are scattered senescent parenchymal change. Coarse interstitial infiltrates throughout both lung aquino greatest on the right persist and are ess entially unchanged. The heart is stable. Hilar and mediastinal structures are within normal limits. Degenerative changes are seen of the dorsal spine. Cardiac conduction device with leads terminating in appropriate position. Sternotomy wires are presen t. IMPRESSION: Similar Coarse interstitial infiltrates throughout both lung aquino greatest on the right persist and are essentially unchanged.
[2023-07-05 17:53] LABS: Glucose,Whole Blood 120 mg/dL (70-110)
[2023-07-05] MEDS: RIVAROXABAN 20 MG TAB PO SCH (18:20)
--- NOTE | 2023-07-05 18:41 | P.PN ---
Progress Note - Text Progress Note Date: 07/05/23 Chief Complaint: Short of breath This is a pleasant 72-year-old, follows with Dr. Emilia Bob. 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 Normally uses 2 L of oxygen at night. Sometimes excessive activity in the daytime. About a week ago patient developed 40 to describe neck: Neck symptoms the runny nose. Subsequently's been noticing that is getting increasingly short of breath example going up the stairs. And oxygen pulse ox dropped down to 70-82%. No cough. No fever no chills. Just tired. Negative self COVID negative test. Patient had 3 bouts of COVID 19 2020. Patient at that time and received BAM. June 25: Up in a chair. at the bedside. Did desaturate going to the bathroom. Changed to Perforomist and nebulized steroids. IV steroids to continue. Follow with pulmonary. Discussed. Seen by cardiology. Increased Im dur. Added Ranexa. June 30: I resumed care of the patient today. Up in a chair. He does some chest pain yesterday resolved by nitro.. Seen by cardiology. Plan for cardiac catheterization. at the bedside. July 01: Cardiac catheterization postponed for tomorrow. Does get tired with activity. Discussed with patient daughter the bedside. On IV heparin. July 02: Patient underwent cardiac catheterization Dr. LIDIA Falk today. RCA is totally occluded. Circumflex and the distal portion beyond the stented segment 70-80% stenosis. Diffuse disease in LAD. Vein graft to the obtuse m arginal occluded. And vein graft to PLV branch of the circumflex is patent. Multiple areas of narrowing 40%. Patient underwent angioplasty. It was felt by the laminating machine operator helper that stent could not be appropriate in the anatomical findings. Patient return to the floor. Postprocedure shortness of breath. Placed on a BiPAP. July 03: Remains on BiPAP. Short of breath. Getting IV Lasix. Also lesly nues steroids. Discussed with patient and Dr. Harris. Follow with cardiology. July 04: Patient remains clinically short of breath. On BiPAP. 70-80%. We'll try him to feed with a straw. Tired. Left arm swelling noted. Doppler ultrasound was negative for DVT. We'll consult vascular. No pain. Has been present for about 2-3 weeks he states.Chest x-ray film personally reviewed by me-coarse infiltrates July 05: Patient moved to the ICU because of increasing shortness of breath. On BiPAP. 90%. Tired. Discussed with and son at the bedside. Remains on bronchodilators. IV steroids. IV cefepime. IV Lasix. Some oral intake with straw, Ensure. Patient seen by vascular Dr. Gardner from left extremity swelling. Keep arm elevated. No DVT. No further vascular intervention. Active Medications Acetaminophen (Acetaminophen Tab 325 Mg Tab) 650 mg PO Q6H PRN PRN Reason: Pain Last Admin: 07/04/23 22:25 Dose: 650 mg Al Hydroxide/Mg Hydroxide (Mag Hydrox/Al Hydrox/Simeth 30 Ml Cup) 30 ml PO Q4HR PRN PRN Reason: Heartburn Albuterol/Ipratropium (Ipratropium-Albuterol 3 Ml Neb) 3 ml INHALATION RT-QID [facility] Last Admin: 07/05/23 15:20 Dose: 3 ml Albuterol/Ipratropium (Ipratropium-Albuterol 3 Ml Neb) 3 ml INHALATION RT-Q2H PRN PRN Reason: Shortness Of Breath Or Wheezing Alprazolam (Alprazolam 0.25 Mg Tab) 0.25 mg PO Q6HR PRN PRN Reason: Mild Anxiety Last Admin: 07/03/23 08:33 Dose: 0.25 mg Alprazolam (Alprazolam 0.5 Mg Tab) 0.5 mg PO Q6HR PRN PRN Reason: Moderate Anxiety Last Admin: 07/04/23 23:04 Dose: 0.5 mg Aspirin (Aspirin 81 Mg) 81 mg PO DAILY [facility] Last Admin: 07/05/23 12:03 Dose: Not Given Atorvastatin Calcium (Atorvastatin 80 Mg Tab) 80 mg PO HS [facility] Last Admin: 07/04/23 22:23 Dose: 80 mg Atropine Sulfate (Atropine Sulfate 0.1 Mg/Ml 10ml Syringe) 0.5 mg IV ONCE PRN PRN Reason: Symptomatic Bradycardia Benzonatate (Benzonatate 100 Mg Cap) 200 mg PO TID [facility] Last Admin: 07/05/23 15:31 Dose: Not Given Budesonide (Budesonide 1 Mg/2 Ml Nebu) 1 mg INHALATION RT-BID [facility] Last Admin: 07/05/23 09:00 Dose: 1 mg Bupropion HCl (Bupropion Sr 150 Mg Tablet.Er) 150 mg PO BID [facility] Last Admin: 07/05/23 12:03 Dose: Not Given Calcium Carbonate/Glycine (Calcium Carbonate 500 Mg Chewable) 1,000 mg PO Q4HR PRN PRN Reason: Dyspepsia Clopidogrel Bisulfate (Clopidogrel 75 Mg Tab) 75 mg PO DAILY [facility] Last Admin: 07/05/23 12:04 Dose: Not Given Ferrous Sulfate (Ferrous Sulfate 325 Mg Tab) 325 mg PO DAILY [facility] Last Admin: 07/05/23 12:04 Dose: Not Given Formoterol Fumarate (Formoterol Fumarate 20 Mcg/2 Ml Nebu) 20 mcg INHALATION RT-BID [facility] Last Admin: 07/05/23 09:00 Dose: 20 mcg Furosemide (Furosemide 10 Mg/Ml 4 Ml Vial) 40 mg IV Q12HR [facility] Last Admin: 07/05/23 09:24 Dose: 40 mg Gabapentin (Gabapentin 300 Mg Cap) 300 mg PO BID [facility] Last Admin: 07/05/23 12:04 Dose: Not Given Guaifenesin/Codeine Phosphate (Guaifenesin-Coden 100-10mg/5ml 10 Ml Cup) 10 ml PO Q6HR PRN PRN Reason: Cough Last Admin: 07/02/23 15:40 Dose: 10 ml Cefepime HCl 2 gm/ Sodium (Chloride) 100 mls @ 25 mls/hr IVPB Q8H [facility] Last Admin: 07/05/23 12:21 Dose: 25 mls/hr Lactulose (Lactulose 20 Gm/30 Ml Cup) 20 gm PO DAILY PRN PRN Reason: Constipation Last Admin: 06/28/23 10:17 Dose: 20 gm Lisinopril (Lisinopril 5 Mg Tab) 5 mg PO HS [facility] Last Admin: 07/04/23 22:24 Dose: 5 mg Loratadine (Loratadine 10 Mg Tab) 10 mg PO DAILY PRN PRN Reason: Allergy Symptoms Lorazepam (Lorazepam 0.5 Mg Tab) 0.5 mg PO Q6HR PRN PRN Reason: Anxiety Melatonin (Melatonin 3 Mg Tablet) 3 mg PO HS PRN PRN Reason: Insomnia Last Admin: 07/04/23 23:04 Dose: 3 mg Methylprednisolone Sodium Succinate (Methylprednisolone Sod Succi 125 Mg/2 Ml Vial) 60 mg IV Q6HR [facility] Last Admin: 07/05/23 18:20 Dose: 60 mg Metoprolol Tartrate (Metoprolol Tartrate 50 Mg Tab) 50 mg PO BID [facility] Last Admin: 07/05/23 12:04 Dose: Not Given Miscellaneous Information (Pneumonia Protocol Utilized 1 Each Misc) 1 each PO ONCE PRN PRN Reason: Per Protocol Naloxone HCl (Naloxone 0.4 Mg/Ml 1 Ml Vial) 0.2 mg IV Q2M PRN PRN Reason: Opioid Reversal Nitroglycerin (Nitroglycerin Sl Tabs 0.4 Mg Tab) 0.4 mg SUBLINGUAL Q5M PRN PRN Reason: Chest Pain Last Admin: 06/29/23 17:52 Dose: 0.4 mg Patient's Own ( Nintedanib Esylate [ Ofev] 150 Mg Capsule ) 150 mg PO BID [facility] Last Admin: 07/05/23 12:04 Dose: Not Given Ondansetron HCl (Ondansetron 4 Mg/2 Ml Vial) 4 mg IVP Q8HR PRN PRN Reason: Nausea And Vomiting Last Admin: 07/04/23 22:59 Dose: 4 mg Pantoprazole Sodium (Pantoprazole 40 Mg Tablet) 40 mg PO DAILY [facility] Last Admin: 07/05/23 12:04 Dose: Not Given Polyethylene Glycol (Polyethylene Glycol 3350 17 Gm Powd.Pack) 17 gm PO HS PRN PRN Reason: Constipation Last Admin: 06/26/23 08:20 Dose: 17 gm Ranolazine (Ranolazine 500 Mg Tab.Er.12h) 1,000 mg PO Q12HR [facility] Last Admin: 07/05/23 12:04 Dose: Not Given Rivaroxaban (Rivaroxaban 20 Mg Tab) 20 mg PO W/SUPPER [facility]; Protocol Last Admin: 07/05/23 18:20 Dose: 20 mg Zolpidem Tartrate (Zolpidem 5 Mg Tab) 5 mg PO HS PRN PRN Reason: Insomnia Past medical history to include: Atrial fibrillation, CAD, COPD, GERD, hyperlipidemia, hypertension, osteoarthritis, COVID 19, bradycardia with pacemaker, lumbar disc disorder, ventral hernia, pulmonary fibrosis, nocturnal oxygen, CAD with stent and coronary bypass in 2004 Social history: . 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 Smoked for about 48 years since the age of 17 stopped in 2016. Alcohol rarely. Physical examination: VITAL SIGNS: 97.6, 84, 26, 11 8 x 69, 93% on BiPAP at 90% GENERAL: Laying in bed, tired, short of breath EYES: Pupils equal. Conjunctiva normal. HEENT: External appearance of nose and ears normal, oral cavity grossly normal. NECK: JVD not raised; masses not palpable. HEART: First and second heart sounds are normal; no edema. LUNGS: Respiratory rate increased; decreased breath sound some crackles. Not able to speak in full sentences . Accessory muscles -working ABDOMEN: Soft, nontender, liver spleen not palpable, no masses palpable. PSYCH: AO 3, mood affect anxious MUSCULOSKELETAL:No Clubbing/cyanosis;muscles-grossly intact. OA INVESTIGATIONS, reviewed in the clinical context: July 05: White count 41.4 hemoglobin 10.7 potassium 4.7 creatinine 0.70 July 04: Procalcitonin 0.11 Doppler ultrasound left upper extremity [July 04]: Negative for DVT July 03: White count was 6.8 hemoglobin 13.8 potassium 4.6 creatinine 0.56 June 30: White count 22.8 hemoglobin 13.8 potassium 3.7 creatinine 0.8 Chest CTA: Pleural calcifications. No pulmonary embolism. 2-D echocardiogram: Hypokinetic inferior wall. Mild to moderate mitral regurgitation, pulmonic regurgitation 5%. Troponin I less than 0.012 Procalcitonin 0.06. Urine Legionella antigen: Negative White count 11.0 hemoglobin 15.2 platelets 250 potassium 4.1 BUN 11 creatinine 0.67 ProBNP 755 Troponin I 0.015 Influenza type A, B, RSV, COVID-19 PCR: Noninjected EKG tracing personally reviewed by me-no sinus rhythm. Nonspecific ST-T wave changes. Chest x-ray film personally reviewed by me-hyperinflation. Some basal chronic changes. Pacemaker. Assessment plan: -Acute shortness of breath or loss for 5 days with increasing hypoxia. Patient had cold-like symptoms about a week ago. Finding is started having increasing shortness of breath and hypoxia with activity. likely a combination of exacerbation of pulmonary fibrosis and COPD. Cardiac ischemia .: At improving -Angioplasty to circumflex -Anterior chest wall pain with inferior wall hypokinesis on 2-D echo.: Unstable angina Negative troponin. Cardiac catheterization -RCA is totally occluded. Circumflex and the distal portion beyond the stented segment 70-80% stenosis. Diffuse disease in LAD. Vein graft to the obtuse marginal occluded. And vein graft to PLV branch of the circumflex is patent. Multiple areas of narrowing 40%. Patient underwent angioplasty. It was felt by the laminating machine operator helper that stent could not be appropriate in the anatomical findings. Angioplasty to the circumflex carried out -Probable superimposed pneumonia IV cefepime. -IV heparin monitoring-discontinued -Acute on chronic hypoxic respiratory failure, multifactorial: Some worsening BiPAP-90% -Acute COPD exacerbation, and a previous smoker: Slow to respond DuoNeb. IV Solu-Medrol 60 mg every 6 -Chronic pulmonary fibrosis possibly acute exacerbation of symptoms precipitated by viral infection IV Solu-Medrol 60 mg every 6 -Coronary artery disease prior history of coronary bypass and stent Imdur 60 mg a day. Ranexa 500 mg twice daily -Essential hypertension Metoprolol 50 mg twice a day, Zestril 2.5 mg daily at bedtime, Imdur 30 mg a day -Depression otherwise specified Wellbutrin SR 150 mg twice a day -Paroxysmal atrial fibrillation, currently sinus rhythm Xarelto, Lopressor BiPAP. IV Lasix. Steroids. . IV cefepime. Discussed with family at the bedside. Past Medical History Past Medical History: Atrial Fibrillation, Coronary Artery Disease (CAD), COPD, GERD/Reflux, Hyperlipidemia, Hypertension, Musculoskeletal Disorder, Osteoarthritis (OA), Pneumonia, Respiratory Disorder Additional Past Medical History / Comment(s): Hx Covid 04/2021 with antibody treatment, Bradycardia with pacemaker, lumbar disc disorder, small hiatal h ernia, ventral hernia, hx anemia, hx hemmorrhoids with bleeding, pulmonary fibrosis dx in 2021, home oxygen History of Any Multi-Drug Resistant Organisms: None Reported Past Surgical History: Coronary Bypass/CABG, Heart Catheterization, Heart Catheterization With Stent, Hernia Repair, Orthopedic Surgery, Pacemaker Additional Past Surgical History / Comment(s): Vasectomy, 3 vessel CABG 2004, BILATERAL CATARACT, VASECTOMY, BONE INFUSION MIDDLE LEFT FINGER CRUSHING INJURY, right knee arthroscopy, [employer] pacemaker placed 11/04/16, 3 stents to Circ 12/16/16, ventricular lead replacement 08/21/2018, hematoma evacuation from pacemaker site 08/23/2018. Past Anesthesia/Blood Transfusion Reactions: No Reported Reaction Date of Last Stent Placement:: 12/16/16 Type of Cardiac Device: Permanent Pacemaker Device Placement Date:: 11/04/16 Past Psychological History: No Psychological Hx Reported Additional Psychological History / Comment(s): Pt resides with his spouse. 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 He has a nebulizer. Has oxygen at home. Still drives. Smoking Status: Former smoker Past Alcohol Use History: Rare Additional Past Alcohol Use History / Comment(s): Quit smoking 7-16, smoked since age 17. Past Drug Use History: None Reported
--- NOTE | 2023-07-05 19:52 | P.PN ---
Subjective Progress Note Date: 07/05/23 History of present illness: This is a 72-year-old male patient of Dr. LIDIA Falk with past medical history of coronary artery disease disease with prior bypass surgery and PTCA, paroxysmal atrial fibrillation on Xarelto for anticoagulation, history of sick sinus syndrome with permanent pacemaker, hypertension, hyperlipidemia, COPD, pulmonary fibrosis under the care of Dr. Farias. We have been asked to evaluate the patient for coronary artery disease. Patient states that last week he had cold symptoms such as a sore throat and runny nose. On Friday he started having some difficulty breathing and on Friday he was having more shortness of breath. His states that his pulse ox is usually 94-96% during the day without oxygen but on Friday pulse ox dropped down to 86%. Patient had episode of chest pain and took 2 nitroglycerin that seemed to help. On Friday, patient called Dr. Falk and was told to monitor, follow-up with Dr. Mcdowell. Patient contacted Dr. Farias and if he worsened her continue to have trouble, coming to the emergency center so he did. Patient denies having any chest pain at this time. Patient becomes significantly dyspneic with ambulating to the bathroom with oxygen. He has been seen by pulmonary medicine for pulmonary fibrosis doubt pneumonia. EKG sinus rhythm with a right bundle branch block Chest x-ray: patchy and interstitial infiltrates mid and lower lungs persist, slightly worse on the left base. Correlate for possible underlying fibrosis with superimposed infiltrate on the left. WBC 11, hemoglobin 15.2, platelet count 250. INR 1. Electrolytes and renal function normal. Troponin negative 1. ProBNP 755. Liver function tests are normal. Lactic acid 1.4. Pro-calcitonin 0.06. Influenza A, influenza B, Legionella, RSV, Covid 19 negative. Home cardiac medications: atorvastatin 40 mg at bedtime, Plavix 75 mg daily, Imdur 30 mg daily at noon, lisinopril 2.5 mg at bedtime, Lopressor 50 mg twice daily, Nitrostat as needed, Xarelto 50 mg at supper. 12/09/2021 PCI of the mid circumflex CT [facility] at [facility] 11/20/2021 PCI unsuccessful to the mid circumflex. No gradient occluded LAD and nondominant RCA [place] circumflex stented at the ostium proximal portion patent, new lesion in the midportion of chronic total occlusion, ZABALA patent, SVG to OM occluded, SVG to PLF patent. Echocardiogram 12/2022 EF 50%, mild inferior wall hypokinesia, mild diastolic dysfunction. Moderate mitral regurgitation, moderate tricuspid regurgitation, moderate pulmonary hypertension. 06/26 Patient is seen today in follow-up. We increased Imdur 60 mg at noon and added Ranexa yesterday. Patient does state he had some tightness in his chest this morning with deep breathing. He denies having any tightness in his chest with ambulation. Patient did have a drop in his pulse ox on 80% this morning with ambulation. Heart rate is in the 80s and 90s, blood pressure running between 124/70 and 163/84. 06/27 Patient states that his reading is seeming to get better. He denies having any chest pain. He feels that he is ready to go home. He is currently on O2 at 2 L nasal cannula with pulse ox 93%, he's been afebrile, heart rate in the 60s, blood pressure 156/62. Echocardiogram reveals normal LV systolic function. Hypokinesis of the inferior wall suggestive prior GA. Mild to moderate mitral regurgitation. 06/30/2023 Cardiology was reconsulted to evaluate patient for chest pain. Patient examined this morning at the bedside. Patient reports he had 3 separate episodes yesterday of chest discomfort that resolved with nitro. At the time of examination this morning, patient denies chest pain or pressure. He denies shortness of breath. 07/01 Patient has been transferred to the [facility]. He was initially scheduled for cardiac cath today with Dr. Sinclair and now rescheduled for tomorrow with Dr. LIDIA Falk. He denies having chest pain this mornig. Patient has slight lower extremity edema and BNP ordered which was 1060 which is about normal for his age. IV fluids discontinued. Noted white count 36.1. 07/03 Patient underwent cardiac catheterization with Dr. Falk yesterday. Right femoral access site appears intact. No signs of hematoma. 07/04 Patient underwent cardiac cath day before yesterday. Patient received 4 stents. Patient continues to be on BiPAP support continues to be short of breath. 07/05 Patient was transferred to ICU because of persistent requirement of BiPAP and continued to be hypoxic and tachypneic. He is also having difficulty swallowing due to concerns of possible oral thrush and BiPAP dependence PHYSICAL EXAM: VITAL SIGNS: Reviewed. GENERAL: Well-developed in no acute distress. NECK: Supple. No JVD or thyromegaly LUNGS: On BiPAP Respirations, tachypneic, labored breathing, reduced air entry, mild wheezing HEART: Irregularly irregular. S1 and S2 heard. EXTREMITIES: 1-2+ pitting edema in bilateral lower extremities ASSESSMENT: Unstable angina status post PCI with 4 stents Acute on chronic hypoxic respiratory failure Coronary artery disease with prior bypass surgery and [employer] Paroxysmal atrial fibrillation History of sick sinus syndrome status post permanent pacemaker Hypertension Hyperlipidemia COPD Pulmonary fibrosis PLAN: Resume Xarelto Ranexa to 1000mg twice a day Continue Aspirin 81 mg daily, Plavix 75 mg daily Continue additional cardiac medications Patient continues to be significantly short of breath. Continue IV diuretic. Continue antibiotics for pneumonia management as per primary team Objective - Vital Signs Vital signs: Vital Signs Temp 97.6 F 07/05/23 16:00 Pulse 81 07/05/23 19:00 Resp 27 H 07/05/23 19:00 BP 83/70 07/05/23 19:00 Pulse Ox 95 07/05/23 19:00 FiO2 90 07/05/23 16:00 Intake & Output 07/05/23 07/05/23 07/06/23 06:59 18:59 06:59 Intake Total 140 20 Output Total 1300 Balance -1160 20 Intake: IV 140 20 0.9 KVO 40 20 Cefepime 2 gm In Sodium 100 Chloride 0.9% 100 ml @ 25 mls/hr IVPB Q8H [facility] Rx#: [id number] Output: Urine 1300 Other: Voiding Method Urinal Urinal # Voids 0 1 # Bowel Movements 1 - Labs CBC & Chem 7: 07/05/23 09:04 07/05/23 09:04 Labs: Abnormal Lab Results - Last 24 Hours (Table) 07/04/23 07/05/23 07/05/23 Range/Units 20:09 06:16 09:04 WBC 41.4 H (3.8-10.6) k/uL RBC 3.44 L (4.30-5.90) m/uL Hgb 10.7 L D (13.0-17.5) gm/dL Hct 31.9 L (39.0-53.0) % RDW 15.8 H (11.5-15.5) % Neutrophils # 38.9 H (1.3-7.7) k/uL Lymphocytes # 0.2 L (1.0-4.8) k/uL Monocytes # 1.4 H (0-1.0) k/uL Basophils # 0.4 H (0-0.2) k/uL Sodium (137-145) mmol/L BUN (9-20) mg/dL Glucose (74-99) mg/dL POC Glucose (mg/dL) 168 H 120 H (70-110) mg/dL Calcium (8.4-10.2) mg/dL 07/05/23 07/05/23 07/05/23 Range/Units 09:04 11:36 17:51 WBC (3.8-10.6) k/uL RBC (4.30-5.90) m/uL Hgb (13.0-17.5) gm/dL Hct (39.0-53.0) % RDW (11.5-15.5) % Neutrophils # (1.3-7.7) k/uL Lymphocytes # (1.0-4.8) k/uL Monocytes # (0-1.0) k/uL Basophils # (0-0.2) k/uL Sodium 136 L (137-145) mmol/L BUN 59 H (9-20) mg/dL Glucose 128 H (74-99) mg/dL POC Glucose (mg/dL) 141 H 120 H (70-110) mg/dL Calcium 8.1 L (8.4-10.2) mg/dL
[2023-07-05] MEDS: lisinopriL 5 MG TAB PO SCH (22:02)
[2023-07-05] MEDS: ATORVASTATIN 80 MG TAB PO SCH (22:02)
[2023-07-05] MEDS: NYSTATIN 100,000 UNIT/ML SUSP 500,000 UNIT/5 ML CUP PO SCH (22:03)
[2023-07-05] MEDS: LORazepam 2 MG/ML INJ IV PRN (22:25)
[2023-07-05 23:47] LABS: Glucose,Whole Blood 130 mg/dL (70-110)
[2023-07-06] MEDS: methylPREDNISolone SOD SUCCI 125 MG/2 ML VIAL IV SCH ×4 (00:21→18:13)
[2023-07-06 05:15] LABS: Basophils # (A) 0.1 k/uL (0-0.2); Basophils % (A) 0 %; Eosinophils % (A) 0 %; HCT 33.1 % (39.0-53.0); Lymphocytes # (A) 0.5 k/uL (1.0-4.8); Lymphocytes % (A) 1 %; MCH 31.4 pg (25.0-35.0); MCHC 33.3 g/dL (31.0-37.0); MCV 94.2 fL (80.0-100.0); Mean Platelet Volume 8.1; Monocytes # (A) 2.1 k/uL (0-1.0); Monocytes % (A) 5 %; Neutrophils % (A) 93 %; Platelet Count 272 k/uL (150-450); RBC 3.51 m/uL (4.30-5.90); RDW 15.8 % (11.5-15.5); WBC 40.6 k/uL (3.8-10.6)
[2023-07-06 05:23] LABS: African American GFR (CKD) >90 (>60 ml/min/1.73 sqM); Anion Gap 5 mmol/L; Blood Urea Nitrogen 56 mg/dL (9-20); Calcium 8.3 mg/dL (8.4-10.2); Carbon Dioxide 30 mmol/L (22-30); Chloride 103 mmol/L (98-107); Glucose 127 mg/dL (74-99); Non-African American GFR(CKD) >90 (>60 ml/min/1.73 sqM); Potassium 4.7 mmol/L (3.5-5.1); Sodium 138 mmol/L (137-145)
[2023-07-06 05:38] LABS: Neutrophils # (A) 37.8 k/uL (1.3-7.7)
[2023-07-06 05:40] LABS: Glucose,Whole Blood 146 mg/dL (70-110)
--- NOTE | 2023-07-06 06:05 | XR ---
EXAMINATION TYPE: XR chest 1V DATE OF EXAM: 07/06/2023 CLINICAL HISTORY: Difficulty breathing progress study. TECHNIQUE: Single AP portable semiupright view of the chest is obtained. COMPARISON: Chest x-ray from one day earlier and older studies. FINDINGS: Persistent reticular increased markings bilaterally with relative narrowing of the left up per lung is redemonstrated. Stable mild cardiomegaly with dual lead pacemaker. Overlying sternal wire s are redemonstrated. Osseous structures are intact. IMPRESSION: Bilateral reticular fibrotic changes redemonstrated. Areas of acute infiltrate and/or christine ma on background chronic changes difficult to exclude. No significant change from one day earlier.
[2023-07-06] MEDS: CEFEPIME 2 GM in SODIUM CHLORIDE 0.9% 100 ML IVPB SCH ×3 (06:22→21:00)
[2023-07-06] MEDS: FORMOTEROL FUMARATE 20 MCG/2 ML NEBU INHALATION SCH ×2 (08:26→20:47)
[2023-07-06] MEDS: BUDESONIDE 1 MG/2 ML NEBU INHALATION SCH ×2 (08:26→20:47)
[2023-07-06] MEDS: IPRATROPIUM-ALBUTEROL 3 ML NEB INHALATION SCH ×4 (08:26→20:47)
[2023-07-06] MEDS: GABAPENTIN 300 MG CAP PO SCH ×2 (08:40→21:06)
[2023-07-06] MEDS: PATIENT'S OWN (Nintedanib Esylate [Ofev] 150 MG Capsule) PO SCH ×2 (08:40→21:07)
[2023-07-06] MEDS: buPROPion SR 150 MG TABLET.ER PO SCH ×2 (08:40→21:06)
[2023-07-06] MEDS: BENZONATATE 100 MG CAP PO SCH ×3 (08:40→21:07)
[2023-07-06] MEDS: FERROUS SULFATE 325 MG TAB PO SCH (08:40)
[2023-07-06] MEDS: RANOLAZINE 500 MG TAB.ER.12H PO SCH ×2 (08:41→21:07)
[2023-07-06] MEDS: FUROSEMIDE 10 MG/ML 4 ML VIAL IV SCH (09:02)
[2023-07-06] MEDS: NYSTATIN 100,000 UNIT/ML SUSP 500,000 UNIT/5 ML CUP PO SCH ×4 (09:03→21:27)
[2023-07-06] MEDS: LORazepam 2 MG/ML INJ IV PRN ×3 (09:27→18:39)
[2023-07-06] MEDS ORDERED: ACETAMINOPHEN IV (For NPO) 1,000 MG in EMPTY BAG 1 BAG IVPB ONE (09:41)
[2023-07-06] MEDS: METOPROLOL TARTRATE 50 MG TAB PO SCH ×2 (09:55→21:27)
[2023-07-06 12:05] LABS: Glucose,Whole Blood 128 mg/dL (70-110)
[2023-07-06] MEDS: PANTOPRAZOLE 40 MG TABLET PO SCH (12:28)
[2023-07-06] MEDS: CLOPIDOGREL 75 MG TAB PO SCH (12:34)
[2023-07-06] MEDS: ASPIRIN 81 MG PO SCH (12:34)
--- NOTE | 2023-07-06 12:45 | P.PN ---
Subjective Progress Note Date: 07/06/23 Principal diagnosis: Acute on chronic hypoxic respiratory failure, multifactorial I am seeing this patient in new consultation today 06/25/2023 after the patient presented with worsening exertional dyspnea that started approximately 1 week ago. Patient is a 72-year-old white male with past medical history significant for COPD, pulmonary fibrosis, chronic oxygen dependence maintained on 2 L/m nasal cannula at bedtime, atrial fibrillation anticoagulated on Xarelto, coronary artery disease with previous CABG, he does have an implanted permanent pacemaker, hypertension, hyperlipidemia, among other things. Patient does follow in the pulmonary office with Dr. Farias. He does have moderate COPD with an FEV1 69% of predicted. He is chronically oxygen and steroid dependent. He utilizes a combination of Wixela and as needed albuterol. He also has biopsy- proven pulmonary fibrosis, UIP type. He is maintained on Ofev. Patient presented to emergency room yesterday morning complaining of worsening exertional dyspnea. He does have chronic dyspnea related to his pulmonary diseases. He states that his shortness of breath worsens with minimal exertion including walking to the bathroom. While climbing the stairs in his home, he says that his pulse oximeter level dropped to 70% while on supplemental 2 L home O2 yesterday. He does not normally wear his oxygen 14/04, but has been lately. He admits to URI like symptoms approximately 1 week ago. Denies any fevers, chills, myalgias, cough. He does admit severe substernal chest pain last week that resolved with 2 nitroglycerin tabs. He does have a significant cardiac history. Denies recent stress test. He denies any current chest pain, heart palpitations, heaviness, syncope, or lower extremities swelling. Patient is currently lying in bed, on 2 L/m nasal cannula, in no acute distress. Chest x- ray redemonstrated his underlying interstitial fibrosis, there is also possible superimposed left lower lobe infiltrate. CBC on arrival showed a WBC count 11, hemoglobin 15.2, hematocrit 47.3, platelets 250. CMP on arrival is unremarkable. Troponin was 0.015. ECG shows normal sinus rhythm without any obvious acute ischemic changes. There are chronic q wave changes in II, III, AVF; right axis deviation. NT proBNP not significantly elevated for age at 755. Procalcitonin level was low at 0.06. Negative for influenza, RSV, COVID-19. Patient was empirically started on azithromycin and Rocephin. Afebrile. Pat ient is hemodynamically stable. On today's evaluation of 06/26/2023, the patient continues to be short of breath although slightly improved compared to yesterday. Nevertheless, the patient is still having exertional hypoxemia. The patient is on a pulse ox is around 87%. The patient is currently on 2 L of oxygen by nasal cannula. No new complaints otherwise for now. Remains on bronchodilators. Remains on steroids. The patient's pro-calcitonin level is at 0.06. Troponins are negative. No altered mentation. No pleurisy. No hemoptysis. No edema in lower extremities. No chest pain at this point in time. Overall condition is stable. On today's evaluation of 06/27/2023 the patient is still having difficulties in breathing and some exertional hypoxemia. Pulse ox is dropping down to the low 80s while him being on 2 L of Oxymizer nasal cannula and this is unusual for the patient. He does recover with rest. Echocardiogram showed some segmental wall motion of the mouth is related to her previous NE. Left ejection fraction is well-preserved. The patient remains on bronchodilators. The patient remains on steroids. Zithromax was also added was added as an empiric antibiotic coverage. White cell count is higher at 29. D-dimer is at 0.24. Hemoglobin is at 14. BUN is at 80 with a creatinine of 0.5 and sodium level is at 138. On 06/28/2023, the patient is being seen for a follow-up. Still having exertional dyspnea and hypoxemia. I reviewed the CAT scan of the chest was done yesterday. There is chronic fibrosis in addition to that there is some increased interstitial changes peripherally in the lung bases. This can be potentially a superinfection or progression of his underlying pulmonary fibrosis. Patient is on Zithromax. I added Rocephin. Remains on O2 at 2 L/m nasal cannula. On 06/29/2023, the patient is essentially unchanged. He is still having some exertional dyspnea and fatigue. He is also having exertional hypoxemia. He is currently on 3 L of oxygen by nasal cannula. He developed some leukocytosis with a white second as high as 29. Subsequent white cell count dropped down to 24 with a hemoglobin of 14. BUN is at 23 with a creatinine of 0.6. No new complaints otherwise for now is on 3 L with a pulse ox of 96%. The patient is seen today 06/30/2023 in follow-up on the medical floor. He is currently sitting up in a chair at the bedside. Awake and alert in no acute distress. Maintaining O2 saturations in the 90s on 3 L/m per nasal cannula. He was having episodes of chest pain yesterday that was resolved with nitroglycerin. Cardiology is following. The plan is for transfer to cardiac stepdown unit and cardiac catheterization tomorrow. His Xarelto was discontinued and he was initiated on a heparin drip. Sputum culture revealed no growth. Blood cultures revealed no growth. His pro-calcitonin was 0.06. Ceftriaxone to be discontinued. He is continued on bronchodilators, Solu- Medrol. White count 22.8. Hemoglobin 13.8. Platelets 301. Sodium 133. Potassium 3.7. Bicarb 23. BUN 23. Creatinine 0.8. Glucose 132. Troponins have been negative. Chest x-ray shows no significant change compared to previous. Fibrotic changes noted. Patient was seen and reevaluated today on 07/01/2023, patient remains on 3 L nasal cannula, O2 saturations 90% on 3 L, patient has shortness of breath with any activity. He does have history of underlying idiopathic pulmonary fibrosis, biopsy proven. Patient is being considered for cardiac catheterization to be done by cardiology, he has apparently intermittent episodes of chest pain/unstable angina. Patient had a previous history of CABG and PTCA. He also has history of paroxysmal atrial fibrillation and sick sinus syndrome. Previous permanent pacemaker implantation. Not to mention the patient has COPD and underlying pulmonary fibrosis. Reevaluated today on 07/02/2023, patient is basically about the same, gradual to have cardiac catheterization today. Pulmonary-corey he does have intermittent cough and shortness of breath. Remains on 6 L O2 and his O2 sats is 89%. Patient does have chronic fibrotic changes/UIP, difficult to rule out underlying component of air space disease and/or CHF. But clinically felt to be less likely. Patient has WBC of 36.1, steadily rising since he was admitted, I am going to repeat his chest x-ray and empirically placed on antibiotics. Check pro-calcitonin level on this patient although his admission pro-calcitonin was 0.06 however this was a week ago. Patient was reevaluated today on 07/03/2023, remains on BiPAP since yesterday, he is on 08/26/60% with marginal O2 saturation. Patient continues to have shortness of breath, and intermittent cough. Follow-up chest x-ray today continues to show severe interstitial lung disease with diffuse coarse reticular opacities right more so than left. Chest x-ray now is much worse of the chest x-ray he had on 06/24/2023, patient seems to be developing a extremely rapid worsening course of pulmonary fibrosis, although the possibility of underlying pneumonia or underlying interstitial edema is not entirely ruled out, and we are giving the patient antibiotics and he is also receiving diuretics. Looking back at his x-rays and the progression of the interstitial changes, for some reason he had a dramatic worsening of the chest x-ray shortly after he came back from cardiac catheterization., Wondering if the patient developed flash pulmonary edema after his cardiac catheterization, and I will check a BNP level, and I will push more diuretics on the patient. In the meantime we continue antibiotics and continue bronchodilators and steroids as well as BiPAP Reevaluated today on 07/04/2023 patient remains on BiPAP., Patient is still having difficulty taking off his BiPAP as he gets extremely short of breath. Chest x-ray is showing slight improvement but clinically he is about the same. Patient remains on steroids, bronchodilators, diuretics, antibiotics, his WBC count is coming down to 26.8, rest of the labs are basically unremarkable, his BNP level was not elevated and his pro-calcitonin level is 0.09 also not significantly elevated. Nonetheless the patient continues to have significant difficulty with his shortness of breath. I am going to recommend a d-dimer on this patient, and if elevated may consider CT angiogram of the chest. Patient was on heparin yesterday, and today he is on Plavix. Reevaluated today on 07/05/2023, patient remains extremely marginal, remains on BiPAP, 08/26/90% patient is becoming basically BiPAP dependent chest x-ray today continues to show the same similar findings of diffuse interstitial lung disease right more so than left consistent with usual interstitial pneumonitis/idiopathic pulmonary fibrosis. Continues to have intermittent episodes of leukemoid reactions his white count today is 41.4. Patient was placed empirically on cefepime. Not much of the changes noted on the chest x- ray today, at least is not enough to explain his profound hypoxemia. It is sort of surprising to me that the patient's condition deteriorated shortly after he underwent cardiac catheterization. I am recommending a repeat echocardiogram on this patient to assess LV function. In the meantime the patient is receiving and responding well to diuretics. He has been in negative balance all along. His BUN today is 59 and creatinine 0.70. His d-dimer yesterday was 0.63 and the patient did have a negative CT angiogram for pulmonary embolism a week ago. Hence I see no signs of repeating his CT angiogram, not to mention the patient is also on Xarelto. Considering the situation being marginal I am sending the patient down to the ICU for close observation, and in the meantime I'm recommending repeat echocardiogram. Discussed with the at bedside, if his condition gets any worse, we will recommend intubation and mechanical ventilation. Patient was seen and evaluated today on 07/06/2023, remains on BiPAP, patient is on 80%. Remains on diuretics Lasix 40 mg IV push twice a day remains on Solu-Medrol 60 mg IV push every 6 hours remains on cefepime and is also on Xarelto. Patient seems to be comfortable as long as he is keeping the BiPAP on. Continues to have leukocytosis with WBC of 40.6 hemoglobin is 11 basic metabolic profile is normal renal profile is normal, repeat echocardiogram is pending seems to be concerning to me that all of that developed after his cardiac catheterization and I am curious to know if the patient still has the same LV function. Patient is being followed by cardiology, recommended to resume Xarelto, added Ranexa, and the patient is on aspirin and Plavix. Objective - Vital Signs Vital signs: Vital Signs Temp 97.2 F L 07/06/23 08:00 Pulse 63 07/06/23 11:27 Resp 22 07/06/23 11:00 BP 142/83 07/06/23 11:00 Pulse Ox 97 07/06/23 11:00 FiO2 70 07/06/23 11:15 Intake & Output 07/05/23 07/06/23 07/06/23 18:59 06:59 18:59 Intake Total 140 240 115 Output Total 1300 1875 300 Balance -1160 -1635 -185 Weight 66 kg Intake: IV 140 240 115 0.9 KVO 40 240 40 Cefepime 2 gm In Sodium 100 75 Chloride 0.9% 100 ml @ 25 mls/hr IVPB Q8H [facility] Rx#: [id number] Output: Urine 1300 1875 300 Other: Voiding Method Urinal Urinal # Voids 1 1 - Exam Physical Exam: Revealed 72-year-old white male in no distress on BiPAP, 08/27/80 percent Head: Atraumatic normocephalic HEENT:[Neck is supple.] [No neck masses.] [No thyromegaly.] [No JVD.] Chest: [Fine Velcro rales and crackles at the bases Cardiac Exam: [Normal S1 and S2, no S3 gallop, no murmur.] Abdomen: [Soft, nontender, no megaly, no rebound, no guarding, normal bowel sounds.] Extremities: [No clubbing, no edema, no cyanosis.] Neurological Exam: [No focal neurologic deficit.] Alert and oriented 3 Psychiatric: Normal mood, affect and normal status examination. Skin: No rash - Labs CBC & Chem 7: 07/06/23 04:35 07/06/23 04:35 Labs: Abnormal Lab Results - Last 24 Hours (Table) 07/05/23 07/05/23 07/06/23 Range/Units 17:51 23:46 04:35 WBC 40.6 H (3.8-10.6) k/uL RBC 3.51 L (4.30-5.90) m/uL Hgb 11.0 L (13.0-17.5) gm/dL Hct 33.1 L (39.0-53.0) % RDW 15.8 H (11.5-15.5) % Neutrophils # 37.8 H (1.3-7.7) k/uL Lymphocytes # 0.5 L (1.0-4.8) k/uL Monocytes # 2.1 H (0-1.0) k/uL BUN (9-20) mg/dL Glucose (74-99) mg/dL POC Glucose (mg/dL) 120 H 130 H (70-110) mg/dL Calcium (8.4-10.2) mg/dL 07/06/23 07/06/23 07/06/23 Range/Units 04:35 05:39 12:03 WBC (3.8-10.6) k/uL RBC (4.30-5.90) m/uL Hgb (13.0-17.5) gm/dL Hct (39.0-53.0) % RDW (11.5-15.5) % Neutrophils # (1.3-7.7) k/uL Lymphocytes # (1.0-4.8) k/uL Monocytes # (0-1.0) k/uL BUN 56 H (9-20) mg/dL Glucose 127 H (74-99) mg/dL POC Glucose (mg/dL) 146 H 128 H (70-110) mg/dL Calcium 8.3 L (8.4-10.2) mg/dL Assessment and Plan Assessment: Impression: Acute on chronic hypoxic respiratory failure secondary to COPD and underlying pulmonary fibrosis/UIP. Suspect some component of flash pulmonary edema following cardiac catheterization. Repeat echocardiogram is pending Chest pain/unstable angina being addressed by cardiology and being considered for cardiac catheterization. History of coronary arteriosclerosis and previous CABG as well as PCI History of implanted permanent pacemaker Benign essential hypertension Paroxysmal atrial fibrillation Dyslipidemia Ex-smoker Recommendation: Continue to monitor in ICU Continue BiPAP and titrate accordingly Continue diuretics Continue antibiotics empirically although his pro-calcitonin level was 0.09 Continue bronchodilators and continue steroids Continue cardiac meds including Ranexa, aspirin, Plavix, and Xarelto Prognosis is relatively guarded, we'll continue to follow Time with Patient: Less than 30
--- NOTE | 2023-07-06 14:41 | CA ---
Transthoracic Echo Report Name: Jey Kingsley Age: 72 Gender: M : 1950 Exam Date: 07/05/2023 14:19 Exam Location: [place] [facility] Ht (in): 66 Wt (lb): 140 Ordering Physician: Irene Almaguer Attending/Referring Phys: Mail Carrier Valeria Arceo [facility] Procedure CPT: Indications: Worsening hypoxemia Cardiac Hx: Technical Quality: Technically difficult study Contrast 1: Lumason Total Dose (mL): 5 Contrast 2: Total Dose (mL): MEASUREMENTS (Male / Female) Normal Values 2D ECHO LV Diastolic Diameter PLAX 4.4 cm 4.2 - 5.9 / 3.9 - 5.3 cm LV Systolic Diameter PLAX 3.1 cm IVS Diastolic Thickness 1.1 cm 0.6 - 1.0 / 0.6 - 0.9 cm LVPW Diastolic Thickness 1.0 cm 0.6 - 1.0 / 0.6 - 0.9 cm LV Relative Wall Thickness 0.5 DOPPLER Mitral E Point Velocity 38.4 cm/s Mitral A Point Velocity 67.5 cm/s Mitral E to A Ratio 0.6 MV Deceleration Time 212.5 ms LV E' Lateral Velocity 6.4 cm/s Mitral E to LV E' Lateral Ratio 6.0 LV E' Septal Velocity 5.1 cm/s Mitral E to LV E' Septal Ratio 7.6 FINDINGS Left Ventricle Mildly increased left ventricular wall thickness. Left ventricular cavity size normal. Normal left ventricular systolic function. Left ventricular ejection fraction is estimated at 55-60%. Right Ventricle Right Atrium Left Atrium Mitral Valve Aortic Valve Tricuspid Valve Pulmonic Valve Pericardium No pericardial effusion. Aorta CONCLUSIONS Limited study. TDS, patient sitting upright and on BiPAP. Left ventricular ejection fraction is estimated at 55-60% No pericardial effusion. Previewed by: Dr Nguyễn Santa (Electronically Signed) Final Date: 06 July 2023 14:41
--- NOTE | 2023-07-06 14:52 | P.PN ---
Subjective Progress Note Date: 07/06/23 History of present illness: This is a 72-year-old male patient of Dr. LIDIA Falk with past medical history of coronary artery disease disease with prior bypass surgery and PTCA, paroxysmal atrial fibrillation on Xarelto for anticoagulation, history of sick sinus syndrome with permanent pacemaker, hypertension, hyperlipidemia, COPD, pulmonary fibrosis under the care of Dr. Farias. We have been asked to evaluate the patient for coronary artery disease. Patient states that last week he had cold symptoms such as a sore throat and runny nose. On Friday he started having some difficulty breathing and on Friday he was having more shortness of breath. His states that his pulse ox is usually 94-96% during the day without oxygen but on Friday pulse ox dropped down to 86%. Patient had episode of chest pain and took 2 nitroglycerin that seemed to help. On Friday, patient called Dr. Falk and was told to monitor, follow-up with Dr. Mcdowell. Patient contacted Dr. Farias and if he worsened her continue to have trouble, coming to the emergency center so he did. Patient denies having any chest pain at this time. Patient becomes significantly dyspneic with ambulating to the bathroom with oxygen. He has been seen by pulmonary medicine for pulmonary fibrosis doubt pneumonia. EKG sinus rhythm with a right bundle branch block Chest x-ray: patchy and interstitial infiltrates mid and lower lungs persist, slightly worse on the left base. Correlate for possible underlying fibrosis with superimposed infiltrate on the left. WBC 11, hemoglobin 15.2, platelet count 250. INR 1. Electrolytes and renal function normal. Troponin negative 1. ProBNP 755. Liver function tests are normal. Lactic acid 1.4. Pro-calcitonin 0.06. Influenza A, influenza B, Legionella, RSV, Covid 19 negative. Home cardiac medications: atorvastatin 40 mg at bedtime, Plavix 75 mg daily, Imdur 30 mg daily at noon, lisinopril 2.5 mg at bedtime, Lopressor 50 mg twice daily, Nitrostat as needed, Xarelto 50 mg at supper. 12/09/2021 PCI of the mid circumflex CT [facility] at [facility] 11/20/2021 PCI unsuccessful to the mid circumflex. No gradient occluded LAD and nondominant RCA north fork circumflex stented at the ostium proximal portion patent, new lesion in the midportion of chronic total occlusion, ZABALA patent, SVG to OM occluded, SVG to PLF patent. Echocardiogram 12/2022 EF 50%, mild inferior wall hypokinesia, mild diastolic dysfunction. Moderate mitral regurgitation, moderate tricuspid regurgitation, moderate pulmonary hypertension. 06/26 Patient is seen today in follow-up. We increased Imdur 60 mg at noon and added Ranexa yesterday. Patient does state he had some tightness in his chest this morning with deep breathing. He denies having any tightness in his chest with ambulation. Patient did have a drop in his pulse ox on 80% this morning with ambulation. Heart rate is in the 80s and 90s, blood pressure running between 124/70 and 163/84. 06/27 Patient states that his reading is seeming to get better. He denies having any chest pain. He feels that he is ready to go home. He is currently on O2 at 2 L nasal cannula with pulse ox 93%, he's been afebrile, heart rate in the 60s, blood pressure 156/62. Echocardiogram reveals normal LV systolic function. Hypokinesis of the inferior wall suggestive prior NH. Mild to moderate mitral regurgitation. 06/30/2023 Cardiology was reconsulted to evaluate patient for chest pain. Patient examined this morning at the bedside. Patient reports he had 3 separate episodes yesterday of chest discomfort that resolved with nitro. At the time of examination this morning, patient denies chest pain or pressure. He denies shortness of breath. 07/01 Patient has been transferred to the [facility] unit from [facility]. He was initially scheduled for cardiac cath today with Dr. Sinclair and now rescheduled for tomorrow with Dr. LIDIA Falk. He denies having chest pain this mornig. Patient has slight lower extremity edema and BNP ordered which was 1060 which is about normal for his age. IV fluids discontinued. Noted white count 36.1. 07/03 Patient underwent cardiac catheterization with Dr. Falk yesterday. Right femoral access site appears intact. No signs of hematoma. 07/04 Patient underwent cardiac cath day before yesterday. Patient received 4 stents. Patient continues to be on BiPAP support continues to be short of breath. 07/05 Patient was transferred to ICU because of persistent requirement of BiPAP and continued to be hypoxic and tachypneic. He is also having difficulty swallowing due to concerns of possible oral thrush and BiPAP dependence 07/06/23 Patient is doing well today. He is requiring continuous BiPAP support. He is a ble to swallow his medications today. Much more comfortable today as compared to yesterday. He does not appear significantly volume overloaded. He does not have any JVD, lower extremity edema or any pitting edema in bilateral upper extremity or sacrum. He also has very poor oral intake being on cutting this BiPAP support PHYSICAL EXAM: VITAL SIGNS: Reviewed. GENERAL: Well-developed in no acute distress. NECK: Supple. No JVD or thyromegaly LUNGS: On BiPAP Respirations, tachypneic, labored breathing, reduced air entry, mild wheezing HEART: Irregularly irregular. S1 and S2 heard. EXTREMITIES: No edema in bilateral lower extremity ASSESSMENT: Unstable angina status post PCI with 4 stents Acute on chronic hypoxic respiratory failure Coronary artery disease with prior bypass surgery and [employer] Paroxysmal atrial fibrillation History of sick sinus syndrome status post permanent pacemaker Hypertension Hyperlipidemia COPD Pulmonary fibrosis PLAN: Reduce Lasix from 40 IV twice a day to 20mg IV daily. Resume Xarelto Ranexa to 1000mg twice a day Continue Aspirin 81 mg daily, Plavix 75 mg daily Continue additional cardiac medications Patient continues to be significantly short of breath. Continue IV diuretic. Continue antibiotics for pneumonia management as per primary team Objective - Vital Signs Vital signs: Vital Signs Temp 97.4 F L 07/06/23 12:00 Pulse 62 07/06/23 13:00 Resp 21 07/06/23 13:00 BP 116/71 07/06/23 13:00 Pulse Ox 94 L 07/06/23 13:00 FiO2 70 07/06/23 12:00 Intake & Output 07/05/23 07/06/23 07/06/23 18:59 06:59 18:59 Intake Total 140 240 165 Output Total 1300 1875 800 Balance -8603 -3435 -535 Weight 66 kg Intake: IV 140 240 165 0.9 KVO 40 240 40 Cefepime 2 gm In Sodium 100 125 Chloride 0.9% 100 ml @ 25 mls/hr IVPB Q8H [facility] Rx#: [id number] Output: Urine 1300 1875 800 Other: Voiding Method Urinal Urinal Urinal # Voids 1 1 - Labs CBC & Chem 7: 07/06/23 04:35 07/06/23 04:35 Labs: Abnormal Lab Results - Last 24 Hours (Table) 07/05/23 07/05/23 07/06/23 Range/Units 17:51 23:46 04:35 WBC 40.6 H (3.8-10.6) k/uL RBC 3.51 L (4.30-5.90) m/uL Hgb 11.0 L (13.0-17.5) gm/dL Hct 33.1 L (39.0-53.0) % RDW 15.8 H (11.5-15.5) % Neutrophils # 37.8 H (1.3-7.7) k/uL Lymphocytes # 0.5 L (1.0-4.8) k/uL Monocytes # 2.1 H (0-1.0) k/uL BUN (9-20) mg/dL Glucose (74-99) mg/dL POC Glucose (mg/dL) 120 H 130 H (70-110) mg/dL Calcium (8.4-10.2) mg/dL 07/06/23 07/06/23 07/06/23 Range/Units 04:35 05:39 12:03 WBC (3.8-10.6) k/uL RBC (4.30-5.90) m/uL Hgb (13.0-17.5) gm/dL Hct (39.0-53.0) % RDW (11.5-15.5) % Neutrophils # (1.3-7.7) k/uL Lymphocytes # (1.0-4.8) k/uL Monocytes # (0-1.0) k/uL BUN 56 H (9-20) mg/dL Glucose 127 H (74-99) mg/dL POC Glucose (mg/dL) 146 H 128 H (70-110) mg/dL Calcium 8.3 L (8.4-10.2) mg/dL
--- NOTE | 2023-07-06 17:47 | P.PN ---
Progress Note - Text Progress Note Date: 07/06/23 Chief Complaint: Short of breath This is a pleasant 72-year-old, follows with Dr. Emilia Bob. 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. Farias. Normally uses 2 L of oxygen at night. Sometimes excessive activity in the daytime. About a week ago patient developed 40 to describe neck: Neck symptoms the runny nose. Subsequently's been noticing that is getting increasingly short of breath example going up the stairs. And oxygen pulse ox dropped down to 70-82%. No cough. No fever no chills. Just tired. Negative self COVID negative test. Patient had 3 bouts of COVID 19 2020. Patient at that time and received BAM. June 25: Up in a chair. at the bedside. Did desaturate going to the bathroom. Changed to Perforomist and nebulized steroids. IV steroids to continue. Follow with pulmonary. Discussed. Seen by cardiology. Increased Im dur. Added Ranexa. June 30: I resumed care of the patient today. Up in a chair. He does some chest pain yesterday resolved by nitro.. Seen by cardiology. Plan for cardiac catheterization. at the bedside. July 01: Cardiac catheterization postponed for tomorrow. Does get tired with activity. Discussed with patient daughter the bedside. On IV heparin. July 02: Patient underwent cardiac catheterization Dr. LIDIA Falk today. RCA is totally occluded. Circumflex and the distal portion beyond the stented segment 70-80% stenosis. Diffuse disease in LAD. Vein graft to the obtuse m arginal occluded. And vein graft to PLV branch of the circumflex is patent. Multiple areas of narrowing 40%. Patient underwent angioplasty. It was felt by the sulfide head operator that stent could not be appropriate in the anatomical findings. Patient return to the floor. Postprocedure shortness of breath. Placed on a BiPAP. July 03: Remains on BiPAP. Short of breath. Getting IV Lasix. Also lesly nues steroids. Discussed with patient and Dr. Harris. Follow with cardiology. July 04: Patient remains clinically short of breath. On BiPAP. 70-80%. We'll try him to feed with a straw. Tired. Left arm swelling noted. Doppler ultrasound was negative for DVT. We'll consult vascular. No pain. Has been present for about 2-3 weeks he states.Chest x-ray film personally reviewed by me-coarse infiltrates July 05: Patient moved to the ICU because of increasing shortness of breath. On BiPAP. 90%. Tired. Discussed with and son at the bedside. Remains on bronchodilators. IV steroids. IV cefepime. IV Lasix. Some oral intake with straw, Ensure. Patient seen by vascular Dr. Gardner from left extremity swelling. Keep arm elevated. No DVT. No further vascular intervention. July 06: Remains on BiPAP. 12/6/70%. Tired. Lethargic. Arousable. No fever. IV cefepime.. IV Solu-Medrol. IV Lasix. We'll consult dietitian for TPN and lipids. Active Medications Acetaminophen (Acetaminophen Tab 325 Mg Tab) 650 mg PO Q6H PRN PRN Reason: Pain Last Admin: 07/04/23 22:25 Dose: 650 mg Al Hydroxide/Mg Hydroxide (Mag Hydrox/Al Hydrox/Simeth 30 Ml Cup) 30 ml PO Q4HR PRN PRN Reason: Heartburn Albuterol/Ipratropium (Ipratropium-Albuterol 3 Ml Neb) 3 ml INHALATION RT-QID [facility] Last Admin: 07/06/23 15:35 Dose: 3 ml Albuterol/Ipratropium (Ipratropium-Albuterol 3 Ml Neb) 3 ml INHALATION RT-Q2H PRN PRN Reason: Shortness Of Breath Or Wheezing Alprazolam (Alprazolam 0.25 Mg Tab) 0.25 mg PO Q6HR PRN PRN Reason: Mild Anxiety Last Admin: 07/03/23 08:33 Dose: 0.25 mg Alprazolam (Alprazolam 0.5 Mg Tab) 0.5 mg PO Q6HR PRN PRN Reason: Moderate Anxiety Last Admin: 07/04/23 23:04 Dose: 0.5 mg Aspirin (Aspirin 81 Mg) 81 mg PO DAILY [facility] Last Admin: 07/06/23 12:34 Dose: 81 mg Atorvastatin Calcium (Atorvastatin 80 Mg Tab) 80 mg PO HS [facility] Last Admin: 07/05/23 22:02 Dose: Not Given Atropine Sulfate (Atropine Sulfate 0.1 Mg/Ml 10ml Syringe) 0.5 mg IV ONCE PRN PRN Reason: Symptomatic Bradycardia Benzonatate (Benzonatate 100 Mg Cap) 200 mg PO TID [facility] Last Admin: 07/06/23 15:51 Dose: Not Given Budesonide (Budesonide 1 Mg/2 Ml Nebu) 1 mg INHALATION RT-BID [facility] Last Admin: 07/06/23 08:26 Dose: 1 mg Bupropion HCl (Bupropion Sr 150 Mg Tablet.Er) 150 mg PO BID [facility] Last Admin: 07/06/23 08:40 Dose: Not Given Calcium Carbonate/Glycine (Calcium Carbonate 500 Mg Chewable) 1,000 mg PO Q4HR PRN PRN Reason: Dyspepsia Clopidogrel Bisulfate (Clopidogrel 75 Mg Tab) 75 mg PO DAILY [facility] Last Admin: 07/06/23 12:34 Dose: 75 mg Ferrous Sulfate (Ferrous Sulfate 325 Mg Tab) 325 mg PO DAILY [facility] Last Admin: 07/06/23 08:40 Dose: Not Given Formoterol Fumarate (Formoterol Fumarate 20 Mcg/2 Ml Nebu) 20 mcg INHALATION RT-BID [facility] Last Admin: 07/06/23 08:26 Dose: 20 mcg Furosemide (Furosemide 10 Mg/Ml 2 Ml Vial) 20 mg IV DAILY [facility] Gabapentin (Gabapentin 300 Mg Cap) 300 mg PO BID [facility] Last Admin: 07/06/23 08:40 Dose: Not Given Guaifenesin/Codeine Phosphate (Guaifenesin-Coden 100-10mg/5ml 10 Ml Cup) 10 ml PO Q6HR PRN PRN Reason: Cough Last Admin: 07/02/23 15:40 Dose: 10 ml Cefepime HCl 2 gm/ Sodium (Chloride) 100 mls @ 25 mls/hr IVPB Q8H [facility] Last Admin: 07/06/23 12:34 Dose: 25 mls/hr Lactulose (Lactulose 20 Gm/30 Ml Cup) 20 gm PO DAILY PRN PRN Reason: Constipation Last Admin: 06/28/23 10:17 Dose: 20 gm Lisinopril (Lisinopril 5 Mg Tab) 5 mg PO HS [facility] Last Admin: 07/05/23 22:02 Dose: Not Given Loratadine (Loratadine 10 Mg Tab) 10 mg PO DAILY PRN PRN Reason: Allergy Symptoms Lorazepam (Lorazepam 0.5 Mg Tab) 0.5 mg PO Q6HR PRN PRN Reason: Anxiety Lorazepam (Lorazepam 2 Mg/Ml Inj) 0.5 mg IV Q4HR PRN PRN Reason: Anxiety Last Admin: 07/06/23 14:26 Dose: 0.5 mg Melatonin (Melatonin 3 Mg Tablet) 3 mg PO HS PRN PRN Reason: Insomnia Last Admin: 07/04/23 23:04 Dose: 3 mg Methylprednisolone Sodium Succinate (Methylprednisolone Sod Succi 125 Mg/2 Ml Vial) 60 mg IV Q6HR [facility] Last Admin: 07/06/23 12:33 Dose: 60 mg Metoprolol Tartrate (Metoprolol Tartrate 50 Mg Tab) 50 mg PO BID [facility] Last Admin: 07/06/23 09:55 Dose: 50 mg Miscellaneous Information (Pneumonia Protocol Utilized 1 Each Misc) 1 each PO ONCE PRN PRN Reason: Per Protocol Naloxone HCl (Naloxone 0.4 Mg/Ml 1 Ml Vial) 0.2 mg IV Q2M PRN PRN Reason: Opioid Reversal Nitroglycerin (Nitroglycerin Sl Tabs 0.4 Mg Tab) 0.4 mg SUBLINGUAL Q5M PRN PRN Reason: Chest Pain Last Admin: 06/29/23 17:52 Dose: 0.4 mg Patient's Own ( Nintedanib Esylate [ Ofev] 150 Mg Capsule ) 150 mg PO BID [facility] Last Admin: 07/06/23 08:40 Dose: Not Given Nystatin (Nystatin 100,000 Unit/Ml Susp 500,000 Unit/5 Ml Cup) 500,000 unit PO QID [facility]; Protocol Last Admin: 07/06/23 12:34 Dose: 500,000 unit Ondansetron HCl (Ondansetron 4 Mg/2 Ml Vial) 4 mg IVP Q8HR PRN PRN Reason: Nausea And Vomiting Last Admin: 07/04/23 22:59 Dose: 4 mg Pantoprazole Sodium (Pantoprazole 40 Mg Tablet) 40 mg PO DAILY [facility] Last Admin: 07/06/23 12:28 Dose: Not Given Polyethylene Glycol (Polyethylene Glycol 3350 17 Gm Powd.Pack) 17 gm PO HS PRN PRN Reason: Constipation Last Admin: 06/26/23 08:20 Dose: 17 gm Ranolazine (Ranolazine 500 Mg Tab.Er.12h) 1,000 mg PO Q12HR [facility] Last Admin: 07/06/23 08:41 Dose: Not Given Rivaroxaban (Rivaroxaban 20 Mg Tab) 20 mg PO W/SUPPER RODNEY; Protocol Last Admin: 07/05/23 18:20 Dose: 20 mg Zolpidem Tartrate (Zolpidem 5 Mg Tab) 5 mg PO HS PRN PRN Reason: Insomnia Past medical history to include: Atrial fibrillation, CAD, COPD, GERD, hyperlipidemia, hypertension, osteoarthritis, COVID 19, bradycardia with pacemaker, lumbar disc disorder, ventral hernia, pulmonary fibrosis, nocturnal oxygen, CAD with stent and coronary bypass in 2004 Social history: . 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 Smoked for about 48 years since the age of 17 stopped in 2015. Alcohol rarely. Physical examination: VITAL SIGNS: 97.4, 70, 27, 124/69, 94% on BiPAP 30% GENERAL: Laying in bed, tired, short of breath EYES: Pupils equal. Conjunctiva normal. HEENT: External appearance of nose and ears normal, oral cavity grossly normal. NECK: JVD not raised; masses not palpable. HEART: First and second heart sounds are normal; no edema. LUNGS: Respiratory rate increased; decreased breath sound some crackles. Not able to speak in full sentences . Accessory muscles -working ABDOMEN: Soft, nontender, liver spleen not palpable, no masses palpable. PSYCH: Lethargic but arousable MUSCULOSKELETAL:No Clubbing/cyanosis;muscles-grossly intact. OA INVESTIGATIONS, reviewed in the clinical context: July 06: White count 40.6 hemoglobin 11 potassium 4.7 creatinine 0.81 July 05: White count 41.4 hemoglobin 10.7 potassium 4.7 creatinine 0.70 July 04: Procalcitonin 0.11 Doppler ultrasound left upper extremity [July 04]: Negative for DVT July 03: White count was 6.8 hemoglobin 13.8 potassium 4.6 creatinine 0.56 June 30: White count 22.8 hemoglobin 13.8 potassium 3.7 creatinine 0.8 Chest CTA: Pleural calcifications. No pulmonary embolism. 2-D echocardiogram: Hypokinetic inferior wall. Mild to moderate mitral regurgitation, pulmonic regurgitation 5%. Troponin I less than 0.012 Procalcitonin 0.06. Urine Legionella antigen: Negative White count 11.0 hemoglobin 15.2 platelets 250 potassium 4.1 BUN 11 creatinine 0.67 ProBNP 755 Troponin I 0.015 Influenza type A, B, RSV, COVID-19 PCR: Noninjected EKG tracing personally reviewed by me-no sinus rhythm. Nonspecific ST-T wave changes. Chest x-ray film personally reviewed by me-hyperinflation. Some basal chronic changes. Pacemaker. Assessment plan: -Acute shortness of breath or loss for 5 days with increasing hypoxia. Patient had cold-like symptoms about a week ago. Finding is started having increasing shortness of breath and hypoxia with activity. likely a combination of exacerbation of pulmonary fibrosis and COPD. Cardiac ischemia .: Not improving -Angioplasty to circumflex -Anterior chest wall pain with inferior wall hypokinesis on 2-D echo.: Unstable angina Negative troponin. Cardiac catheterization -RCA is totally occluded. Circumflex and the distal portion beyond the stented segment 70-80% stenosis. Diffuse disease in LAD. Vein graft to the obtuse marginal occluded. And vein graft to PLV branch of the circumflex is patent. Multiple areas of narrowing 40%. Patient underwent angioplasty. It was felt by the sulfide head operator that stent could not be appropriate in the anatomical findings. Angioplasty to the circumflex carried out -Probable superimposed pneumonia IV cefepime. -IV heparin monitoring-discontinued -Acute on chronic hypoxic respiratory failure, multifactorial: Slow to respond BiPAP-70% -Acute metabolic encephalopathy: multifactorial -Acute COPD exacerbation, and a previous smoker: Slow to respond DuoNeb. IV Solu-Medrol 60 mg every 6 -Chronic pulmonary fibrosis possibly acute exacerbation of symptoms precipitated by viral infection IV Solu-Medrol 60 mg every 6 -Coronary artery disease prior history of coronary bypass and stent Imdur 60 mg a day. Ranexa 500 mg twice daily -Essential hypertension Metoprolol 50 mg twice a day, Zestril 2.5 mg daily at bedtime, Imdur 30 mg a day -Depression otherwise specified Wellbutrin SR 150 mg twice a day -Paroxysmal atrial fibrillation, currently sinus rhythm Xarelto, Lopressor -Full code BiPAP. IV Lasix. Steroids. . IV cefepime. Prognosis guarded Past Medical History Past Medical History: Atrial Fibrillation, Coronary Artery Disease (CAD), COPD, GERD/Reflux, Hyperlipidemia, Hypertension, Musculoskeletal Disorder, Osteoarthritis (OA), Pneumonia, Respiratory Disorder Additional Past Medical History / Comment(s): Hx Covid 04/2021 with antibody treatment, Bradycardia with pacemaker, lumbar disc disorder, small hiatal hernia, ventral hernia, hx anemia, hx hemmorrhoids with bleeding, pulmonary fibrosis dx in 2021, home oxygen History of Any Multi-Drug Resistant Organisms: None Reported Past Surgical History: Coronary Bypass/CABG, Heart Catheterization, Heart Cath eterization With Stent, Hernia Repair, Orthopedic Surgery, Pacemaker Additional Past Surgical History / Comment(s): Vasectomy, 3 vessel CABG 2004, BILATERAL CATARACT, VASECTOMY, BONE INFUSION MIDDLE LEFT FINGER CRUSHING INJURY, right knee arthroscopy, [employer] pacemaker placed 11/04/16, 3 stents to Circ 12/16/16, ventricular lead replacement 08/21/2018, hematoma evacuation from pacemaker site 08/23/2018. Past Anesthesia/Blood Transfusion Reactions: No Reported Reaction Date of Last Stent Placement:: 12/16/16 Type of Cardiac Device: Permanent Pacemaker Device Placement Date:: 11/04/16 Past Psychological History: No Psychological Hx Reported Additional Psychological History / Comment(s): Pt resides with his spouse. 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 He has a nebulizer. Has oxygen at home. Still drives. Smoking Status: Former smoker Past Alcohol Use History: Rare Additional Past Alcohol Use History / Comment(s): Quit smoking 16, smoked since age 17. Past Drug Use History: None Reported
[2023-07-06 18:13] LABS: Glucose,Whole Blood 127 mg/dL (70-110)
[2023-07-06] MEDS: RIVAROXABAN 20 MG TAB PO SCH (18:13)
[2023-07-06] MEDS: lisinopriL 5 MG TAB PO SCH (21:27)
[2023-07-06] MEDS: ATORVASTATIN 80 MG TAB PO SCH (21:27)
[2023-07-07] MEDS: methylPREDNISolone SOD SUCCI 125 MG/2 ML VIAL IV SCH ×5 (00:18→23:16)
[2023-07-07] MEDS: LORazepam 2 MG/ML INJ IV PRN ×2 (00:32→08:12)
[2023-07-07 01:57] LABS: Glucose,Whole Blood 108 mg/dL (70-110)
[2023-07-07] MEDS: CEFEPIME 2 GM in SODIUM CHLORIDE 0.9% 100 ML IVPB SCH ×2 (03:02→11:57)
[2023-07-07 04:49] LABS: Anisocytosis Slight; Basophils # (A) 0.1 k/uL (0-0.2); Basophils % (A) 0 %; Eosinophils % (A) 0 %; HCT 31.7 % (39.0-53.0); HGB 10.4 gm/dL (13.0-17.5); Lymphocytes # (A) 0.4 k/uL (1.0-4.8); Lymphocytes % (A) 1 %; MCH 30.9 pg (25.0-35.0); MCHC 32.9 g/dL (31.0-37.0); MCV 93.8 fL (80.0-100.0); Mean Platelet Volume 8.9; Monocytes # (A) 1.7 k/uL (0-1.0); Monocytes % (A) 4 %; Neutrophils # (A) 37.5 k/uL (1.3-7.7); Neutrophils % (A) 94 %; Platelet Count 249 k/uL (150-450); RBC 3.38 m/uL (4.30-5.90); RDW 16.4 % (11.5-15.5)
[2023-07-07 05:19] LABS: African American GFR (CKD) >90 (>60 ml/min/1.73 sqM); Anion Gap 4 mmol/L; Blood Urea Nitrogen 48 mg/dL (9-20); Calcium 8.2 mg/dL (8.4-10.2); Carbon Dioxide 27 mmol/L (22-30); Chloride 107 mmol/L (98-107); Glucose 112 mg/dL (74-99); Non-African American GFR(CKD) >90 (>60 ml/min/1.73 sqM); Potassium 4.5 mmol/L (3.5-5.1); Sodium 138 mmol/L (137-145)
[2023-07-07] MEDS: ACETAMINOPHEN TAB 325 MG TAB PO PRN (05:41)
--- NOTE | 2023-07-07 07:02 | XR ---
EXAMINATION TYPE: XR chest 1V portable DATE OF EXAM: 07/07/2023 5:33 AM COMPARISON: Chest radiographs from 07/04/2023 TECHNIQUE: XR chest 1V portable Portable AP radiograph of the chest. CLINICAL INDICATION:Male, 72 years old with history of pulmonary fibrosis with superimposed pneumonia ; FINDINGS: Lungs/Pleura: No pleural effusion or pneumothorax. Persistent reticular increased markings bilaterall y with right greater than left. Pulmonary vascularity: Unremarkable. Heart/mediastinum: Cardiomediastinal silhouette is enlarged and stable. Two lead cardiac conduction d evice overlying the left hemithorax with lead tips projecting over the right ventricle and right atri um. Musculoskeletal: No acute osseous pathology. Midline sternotomy wires are noted and stable. IMPRESSION: Overall stable examination with bilateral reticular fibrotic changes redemonstrated. Superimposed inf ectious process is not excluded.
--- NOTE | 2023-07-07 07:41 | P.PN ---
Subjective Progress Note Date: 07/07/23 PROGRESS NOTE The patient is a 72-year-old male with known history of pulmonary fibrosis, oxygen dependent, atrial fibrillation, paroxysmal, status post CABG who presented with hypoxemia and had episodes of chest discomfort. He underwent cardiac catheterization and stenting of the left circumflex by Dr. Falk. He is doing well this morning. He continues to have dyspnea requiring oxygen supplementation. He had episodes of paroxysmal atrial fibrillation. He denies any chest discomfort or dizziness. His blood pressure is stable. He denies any nausea or vomiting. His urinary output has been stable. His echocardiogram showed a preserved systolic function. Medications: Aspirin 81 mg daily, Lipitor 80 mg daily, Plavix 75 mg daily, Zestril 5 mg daily, metoprolol 50 mg twice a day, Ranexa 1 g twice a day, Xarelto 20 mg daily PHYSICAL EXAMINATION: Blood pressure 114/50 heart rate 69 LUNGS: Bilateral crackles and rhonchi HEART: Regular rate and rhythm, S1, S2. No S3. Systolic ejection murmur ABDOMEN: Soft, nontender, no organomegaly EXTREMETIES: No edema LAB: WBC 40,000, hemoglobin 10.4, BUN 48, creatinine 0.59 IMPRESSION: 1. Respiratory failure with severe pulmonary fibrosis 2. Status post recent stenting of the left circumflex 3. Paroxysmal atrial fibrillation 4. Hypertension 5. Hyperlipidemia PLAN: 1. Continue present therapy 2. Stop aspirin on 07/10 and continue Plavix and anticoagulation 3. Increase physical activity as tolerated 4. Further treatment of respiratory status per pulmonary service Objective - Vital Signs Vital signs: Vital Signs Temp 97.5 F L 07/07/23 04:00 Pulse 69 07/07/23 07:00 Resp 27 H 07/07/23 07:00 BP 114/54 07/07/23 07:00 Pulse Ox 97 07/07/23 07:00 FiO2 90 07/07/23 06:18 Intake & Output 07/06/23 07/07/23 07/07/23 18:59 06:59 18:59 Intake Total 255 240 540 Output Total 960 950 100 Balance -705 -710 440 Weight 64.3 kg Intake: IV 255 240 0.9 KVO 80 40 Cefepime 2 gm In Sodium 175 200 Chloride 0.9% 100 ml @ 25 mls/hr IVPB Q8H [facility] Rx#: [id number] Oral 540 Output: Urine 960 950 100 Other: Voiding Method Urinal Urinal # Voids 1 1 - Labs CBC & Chem 7: 07/07/23 04:34 07/07/23 04:34 Labs: Abnormal Lab Results - Last 24 Hours (Table) 07/06/23 07/06/23 07/07/23 Range/Units 12:03 18:12 04:34 WBC 40.0 H (3.8-10.6) k/uL RBC 3.38 L (4.30-5.90) m/uL Hgb 10.4 L (13.0-17.5) gm/dL Hct 31.7 L (39.0-53.0) % RDW 16.4 H (11.5-15.5) % Neutrophils # 37.5 H (1.3-7.7) k/uL Lymphocytes # 0.4 L (1.0-4.8) k/uL Monocytes # 1.7 H (0-1.0) k/uL BUN (9-20) mg/dL Creatinine (0.66-1.25) mg/dL Glucose (74-99) mg/dL POC Glucose (mg/dL) 128 H 127 H (70-110) mg/dL Calcium (8.4-10.2) mg/dL 07/07/23 Range/Units 04:34 WBC (3.8-10.6) k/uL RBC (4.30-5.90) m/uL Hgb (13.0-17.5) gm/dL Hct (39.0-53.0) % RDW (11.5-15.5) % Neutrophils # (1.3-7.7) k/uL Lymphocytes # (1.0-4.8) k/uL Monocytes # (0-1.0) k/uL BUN 48 H (9-20) mg/dL Creatinine 0.59 L (0.66-1.25) mg/dL Glucose 112 H (74-99) mg/dL POC Glucose (mg/dL) (70-110) mg/dL Calcium 8.2 L (8.4-10.2) mg/dL
[2023-07-07] MEDS: METOPROLOL TARTRATE 50 MG TAB PO SCH ×2 (08:18→20:01)
[2023-07-07] MEDS: PANTOPRAZOLE 40 MG TABLET PO SCH (08:18)
[2023-07-07] MEDS: CLOPIDOGREL 75 MG TAB PO SCH (08:18)
[2023-07-07] MEDS: ASPIRIN 81 MG PO SCH (08:20)
[2023-07-07] MEDS: BENZONATATE 100 MG CAP PO SCH ×3 (08:20→20:39)
[2023-07-07] MEDS: NYSTATIN 100,000 UNIT/ML SUSP 500,000 UNIT/5 ML CUP PO SCH ×4 (08:20→20:39)
[2023-07-07] MEDS: FUROSEMIDE 10 MG/ML 2 ML VIAL IV SCH (08:20)
[2023-07-07] MEDS: GABAPENTIN 300 MG CAP PO SCH ×2 (08:20→20:01)
[2023-07-07] MEDS: RANOLAZINE 500 MG TAB.ER.12H PO SCH ×2 (08:21→20:01)
[2023-07-07] MEDS: buPROPion SR 150 MG TABLET.ER PO SCH ×2 (08:21→20:01)
[2023-07-07] MEDS: PATIENT'S OWN (Nintedanib Esylate [Ofev] 150 MG Capsule) PO SCH ×2 (08:25→20:02)
[2023-07-07] MEDS: IPRATROPIUM-ALBUTEROL 3 ML NEB INHALATION SCH ×4 (08:29→21:45)
[2023-07-07] MEDS: FORMOTEROL FUMARATE 20 MCG/2 ML NEBU INHALATION SCH ×2 (08:29→21:45)
[2023-07-07] MEDS: BUDESONIDE 1 MG/2 ML NEBU INHALATION SCH ×2 (08:30→21:45)
[2023-07-07] MEDS ORDERED: METOPROLOL TARTRATE 50 MG TAB PO STA (08:34)
[2023-07-07 12:02] LABS: Glucose,Whole Blood 98 mg/dL (70-110)
--- NOTE | 2023-07-07 13:19 | P.PN ---
Subjective Progress Note Date: 07/07/23 Principal diagnosis: Respiratory failure. Patient was reevaluated today on 07/03/2023, remains on BiPAP since yesterday, he is on //60% with marginal O2 saturation. Patient continues to have shortness of breath, and intermittent cough. Follow-up chest x-ray today continues to show severe interstitial lung disease with diffuse coarse reticular opacities right more so than left. Chest x-ray now is much worse of the chest x-ray he had on 06/24/2023, patient seems to be developing a extremely rapid worsening course of pulmonary fibrosis, although the possibility of underlying pneumonia or underlying interstitial edema is not entirely ruled out, and we are giving the patient antibiotics and he is also receiving diuretics. Looking back at his x-rays and the progression of the interstitial changes, for some reason he had a dramatic worsening of the chest x-ray shortly after he came back from cardiac catheterization., Wondering if the patient developed flash pulmonary edema after his cardiac catheterization, and I will check a BNP level, and I will push more diuretics on the patient. In the meantime we continue antibiotics and continue bronchodilators and steroids as well as BiPAP Reevaluated today on 07/04/2023 patient remains on BiPAP., Patient is still h aving difficulty taking off his BiPAP as he gets extremely short of breath. Chest x-ray is showing slight improvement but clinically he is about the same. Patient remains on steroids, bronchodilators, diuretics, antibiotics, his WBC count is coming down to 26.8, rest of the labs are basically unremarkable, his BNP level was not elevated and his pro-calcitonin level is 0.09 also not significantly elevated. Nonetheless the patient continues to have significant difficulty with his shortness of breath. I am going to recommend a d-dimer on this patient, and if elevated may consider CT angiogram of the chest. Patient was on heparin yesterday, and today he is on Plavix. Reevaluated today on 07/05/2023, patient remains extremely marginal, remains on BiPAP, 08/26/90% patient is becoming basically BiPAP dependent chest x-ray today continues to show the same similar findings of diffuse interstitial lung disease right more so than left consistent with usual interstitial pneumonitis/idiopathic pulmonary fibrosis. Continues to have intermittent episodes of leukemoid reactions his white count today is 41.4. Patient was placed empirically on cefepime. Not much of the changes noted on the chest x- ray today, at least is not enough to explain his profound hypoxemia. It is sort of surprising to me that the patient's condition deteriorated shortly after he underwent cardiac catheterization. I am recommending a repeat echocardiogram on this patient to assess LV function. In the meantime the patient is receiving and responding well to diuretics. He has been in negative balance all along. His BUN today is 59 and creatinine 0.70. His d-dimer yesterday was 0.63 and the patient did have a negative CT angiogram for pulmonary embolism a week ago. Hence I see no signs of repeating his CT angiogram, not to mention the patient is also on Xarelto. Considering the situation being marginal I am sending the patient down to the ICU for close observation, and in the meantime I'm recommen ding repeat echocardiogram. Discussed with the at bedside, if his condition gets any worse, we will recommend intubation and mechanical ventilation. Patient was seen and evaluated today on 07/06/2023, remains on BiPAP, patient is on 12/6/80%. Remains on diuretics Lasix 40 mg IV push twice a day remains on Solu-Medrol 60 mg IV push every 6 hours remains on cefepime and is also on Xarelto. Patient seems to be comfortable as long as he is keeping the BiPAP on. Continues to have leukocytosis with WBC of 40.6 hemoglobin is 11 basic metabolic profile is normal renal profile is normal, repeat echocardiogram is pending seems to be concerning to me that all of that developed after his cardi ac catheterization and I am curious to know if the patient still has the same LV function. Patient is being followed by cardiology, recommended to resume Xarelto, added Ranexa, and the patient is on aspirin and Plavix. Progress note dated 07/07/2023. This is a 72-year-old male with established history of pulmonary fibrosis/interstitial lung disease. He was admitted on June 24, and came to the intensive care unit on July 05. The patient had worsening hypoxemic respiratory failure. He's currently on AIRVO at 60 L/m with an FiO2 of 90%, or BiPAP, with settings of 12/6, 70%. He's not receiving any IV fluids. The patient has completed a course of cefepime. White count is 40,000, hemoglobin 10.4, hematocrit 31.7, platelet count 249,000. Sodium 138, potassium 4.5, chlorides 107, CO2 27, BUN 48, creatinine 0.59. Sputum and blood sampling has been negative. Chest x-ray shows diffuse interstitial and fibrotic reticular changes. Objective - Vital Signs Vital signs: Vital Signs Temp 97.5 F L 07/07/23 12:00 Pulse 65 07/07/23 12:00 Resp 24 07/07/23 12:00 BP 92/58 07/07/23 12:00 Pulse Ox 98 07/07/23 12:00 FiO2 90 07/07/23 12:00 Intake & Output 07/06/23 07/07/23 07/07/23 18:59 06:59 18:59 Intake Total 255 240 640 Output Total 960 950 500 Balance -705 -710 140 Weight 64.3 kg 64.3 kg Intake: IV 255 240 100 0.9 KVO 80 40 Cefepime 2 gm In Sodium 175 200 100 Chloride 0.9% 100 ml @ 25 mls/hr IVPB Q8H [facility] Rx#: [id number] Oral 540 Output: Urine 960 950 500 Other: Voiding Method Urinal Urinal Urinal # Voids 1 1 - Exam No acute distress, somnolent, currently on AIRVO. HEENT examination is grossly unremarkable. Neck supple. Full range of motion. No adenopathy thyromegaly or neck vein distention. Cardiovascular examination reveals regular rhythm rate. S1-S2 normal. No S3 or S4. No discernible murmur noted. Heart rate 65 bpm. Heart sounds are distant. Lungs reveal bilateral dry crackles. Breath sounds equal bilaterally. No r honchi. No wheezes. Saturations are 95% on AIRVO. Abdomen soft bowel sounds are heard. No masses or tenderness. Extremities are intact. No cyanosis clubbing or edema. Skin is without rash or lesion. Neurologic examination is brief but nonfocal. - Labs CBC & Chem 7: 07/07/23 04:34 07/07/23 04:34 Labs: Abnormal Lab Results - Last 24 Hours (Table) 07/06/23 07/07/23 07/07/23 Range/Units 18:12 04:34 04:34 WBC 40.0 H (3.8-10.6) k/uL RBC 3.38 L (4.30-5.90) m/uL Hgb 10.4 L (13.0-17.5) gm/dL Hct 31.7 L (39.0-53.0) % RDW 16.4 H (11.5-15.5) % Neutrophils # 37.5 H (1.3-7.7) k/uL Lymphocytes # 0.4 L (1.0-4.8) k/uL Monocytes # 1.7 H (0-1.0) k/uL BUN 48 H (9-20) mg/dL Creatinine 0.59 L (0.66-1.25) mg/dL Glucose 112 H (74-99) mg/dL POC Glucose (mg/dL) 127 H (70-110) mg/dL Calcium 8.2 L (8.4-10.2) mg/dL Assessment and Plan Assessment: Acute on chronic hypoxemic respiratory failure, secondary to acute exacerbation of interstitial lung disease has pulmonary fibrosis, with likely diffuse alveolar damage (DAD). History of COPD exacerbation. Flash pulmonary edema, following cardiac catheterization. Chest pain/unstable angina, status post cardiac catheterization with ballooning of the circumflex coronary artery. Status post previous CABG. History of permanent pacemaker implantation. Benign essential hypertension. Paroxysmal atrial fibrillation. History of dyslipidemia. Plan: Plan dated 07/07/2023. Currently, the patient is resting in the intensive care unit, 258. The patient's currently on AIRVO, at 60 L/m with an FiO2 of 90%. The cefepime has been discontinued, as he received appropriate treatment with this antibiotic. There is no clear evidence of infection at this time. I did have a conversation with Anna, the , about long-term care of this patient. I've asked her to start thinking about whether or not Jey would want to be on the mechanical ventilator, and would want tracheostomy and feeding tube placement, should he not be able to be weaned off. I think it would be a bad idea for the patient end up on mechanical ventilation, given his severe pulmonary fibrosis. Anyway, she'll talk to other family members about that, and get back with us. Time with Patient: Greater than 30
[2023-07-07] MEDS: RIVAROXABAN 20 MG TAB PO SCH (17:50)
[2023-07-07 18:09] LABS: Glucose,Whole Blood 168 mg/dL (70-110)
[2023-07-07] MEDS: ATORVASTATIN 80 MG TAB PO SCH (20:01)
[2023-07-07 20:36] LABS: Glucose,Whole Blood 175 mg/dL (70-110)
[2023-07-07] MEDS: ALPRAZolam 0.25 MG TAB PO PRN (20:39)
[2023-07-07] MEDS: lisinopriL 5 MG TAB PO SCH (20:39)
[2023-07-07] MEDS: MELATONIN 3 MG TABLET PO PRN (20:39)
--- NOTE | 2023-07-07 20:43 | P.PN ---
Progress Note - Text Progress Note Date: 07/07/23 Chief Complaint: Short of breath This is a pleasant 72-year-old, follows with Dr. Emilia Bob. 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 [facility] Dr. Farias. Normally uses 2 L of oxygen at night. Sometimes excessive activity in the daytime. About a week ago patient developed 40 to describe neck: Neck symptoms the runny nose. Subsequently's been noticing that is getting increasingly short of breath example going up the stairs. And oxygen pulse ox dropped down to 70-82%. No cough. No fever no chills. Just tired. Negative self COVID negative test. Patient had 3 bouts of COVID 19 2020. Patient at that time and received BAM. June 25: Up in a chair. at the bedside. Did desaturate going to the bathroom. Changed to Perforomist and nebulized steroids. IV steroids to continue. Follow with pulmonary. Discussed. Seen by cardiology. Increased Im dur. Added Ranexa. June 30: I resumed care of the patient today. Up in a chair. He does some chest pain yesterday resolved by nitro.. Seen by cardiology. Plan for cardiac catheterization. at the bedside. July 01: Cardiac catheterization postponed for tomorrow. Does get tired with activity. Discussed with patient daughter the bedside. On IV heparin. July 02: Patient underwent cardiac catheterization Dr. LIDIA Falk today. RCA is totally occluded. Circumflex and the distal portion beyond the stented segment 70-80% stenosis. Diffuse disease in LAD. Vein graft to the obtuse m arginal occluded. And vein graft to PLV branch of the circumflex is patent. Multiple areas of narrowing 40%. Patient underwent angioplasty. It was felt by the shear operator automatic that stent could not be appropriate in the anatomical findings. Patient return to the floor. Postprocedure shortness of breath. Placed on a BiPAP. July 03: Remains on BiPAP. Short of breath. Getting IV Lasix. Also lesly nues steroids. Discussed with patient and Dr. Harris. Follow with cardiology. July 04: Patient remains clinically short of breath. On BiPAP. 70-80%. We'll try him to feed with a straw. Tired. Left arm swelling noted. Doppler ultrasound was negative for DVT. We'll consult vascular. No pain. Has been present for about 2-3 weeks he states.Chest x-ray film personally reviewed by me-coarse infiltrates July 05: Patient moved to the ICU because of increasing shortness of breath. On BiPAP. 90%. Tired. Discussed with and son at the bedside. Remains on bronchodilators. IV steroids. IV cefepime. IV Lasix. Some oral intake with straw, Ensure. Patient seen by vascular Dr. Gardner from left extremity swelling. Keep arm elevated. No DVT. No further vascular intervention. July 06: Remains on BiPAP. 12/6/70%. Tired. Lethargic. Arousable. No fever. IV cefepime.. IV Solu-Medrol. IV Lasix. We'll consult dietitian for TPN and lipids. July 07: ICU. Today patient is paced on AIRVO. 60/92%. This morning it got into atrial fibrillation rapid ventricular rate. Given Lopressor. Back in sinus rhythm. Did tolerate some diet. I saw the patient this afternoon. Later the nurse called me the evening that patient family at, and patient was made DO NOT RESUSCITATE. Spoke to the dietitian. Oral intake encouraged. Active Medications Acetaminophen (Acetaminophen Tab 325 Mg Tab) 650 mg PO Q6H PRN PRN Reason: Pain Last Admin: 07/07/23 05:41 Dose: 650 mg Al Hydroxide/Mg Hydroxide (Mag Hydrox/Al Hydrox/Simeth 30 Ml Cup) 30 ml PO Q4HR PRN PRN Reason: Heartburn Albuterol/Ipratropium (Ipratropium-Albuterol 3 Ml Neb) 3 ml INHALATION RT-QID RODNEY Last Admin: 07/07/23 15:31 Dose: 3 ml Albuterol/Ipratropium (Ipratropium-Albuterol 3 Ml Neb) 3 ml INHALATION RT-Q2H PRN PRN Reason: Shortness Of Breath Or Wheezing Alprazolam (Alprazolam 0.25 Mg Tab) 0.25 mg PO Q6HR PRN PRN Reason: Mild Anxiety Last Admin: 07/07/23 20:39 Dose: 0.25 mg Alprazolam (Alprazolam 0.5 Mg Tab) 0.5 mg PO Q6HR PRN PRN Reason: Moderate Anxiety Last Admin: 07/04/23 23:04 Dose: 0.5 mg Aspirin (Aspirin 81 Mg) 81 mg PO DAILY [facility] Last Admin: 07/07/23 08:20 Dose: 81 mg Atorvastatin Calcium (Atorvastatin 80 Mg Tab) 80 mg PO HS [facility] Last Admin: 07/07/23 20:01 Dose: 80 mg Atropine Sulfate (Atropine Sulfate 0.1 Mg/Ml 10ml Syringe) 0.5 mg IV ONCE PRN PRN Reason: Symptomatic Bradycardia Benzonatate (Benzonatate 100 Mg Cap) 200 mg PO TID [facility] Last Admin: 07/07/23 20:39 Dose: 200 mg Budesonide (Budesonide 1 Mg/2 Ml Nebu) 1 mg INHALATION RT-BID [facility] Last Admin: 07/07/23 08:30 Dose: 1 mg Bupropion HCl (Bupropion Sr 150 Mg Tablet.Er) 150 mg PO BID [facility] Last Admin: 07/07/23 20:01 Dose: 150 mg Calcium Carbonate/Glycine (Calcium Carbonate 500 Mg Chewable) 1,000 mg PO Q4HR PRN PRN Reason: Dyspepsia Clopidogrel Bisulfate (Clopidogrel 75 Mg Tab) 75 mg PO DAILY [facility] Last Admin: 07/07/23 08:18 Dose: 75 mg Formoterol Fumarate (Formoterol Fumarate 20 Mcg/2 Ml Nebu) 20 mcg INHALATION RT-BID [facility] Last Admin: 07/07/23 08:29 Dose: 20 mcg Furosemide (Furosemide 10 Mg/Ml 2 Ml Vial) 20 mg IV DAILY [facility] Last Admin: 07/07/23 08:20 Dose: 20 mg Gabapentin (Gabapentin 300 Mg Cap) 300 mg PO BID [facility] Last Admin: 07/07/23 20:01 Dose: 300 mg Guaifenesin/Codeine Phosphate (Guaifenesin-Coden 100-10mg/5ml 10 Ml Cup) 10 ml PO Q6HR PRN PRN Reason: Cough Last Admin: 07/02/23 15:40 Dose: 10 ml Lactulose (Lactulose 20 Gm/30 Ml Cup) 20 gm PO DAILY PRN PRN Reason: Constipation Last Admin: 06/28/23 10:17 Dose: 20 gm Lisinopril (Lisinopril 5 Mg Tab) 5 mg PO HS [facility] Last Admin: 07/07/23 20:39 Dose: 5 mg Loratadine (Loratadine 10 Mg Tab) 10 mg PO DAILY PRN PRN Reason: Allergy Symptoms Lorazepam (Lorazepam 0.5 Mg Tab) 0.5 mg PO Q6HR PRN PRN Reason: Anxiety Lorazepam (Lorazepam 2 Mg/Ml Inj) 0.5 mg IV Q4HR PRN PRN Reason: Anxiety Last Admin: 07/07/23 08:12 Dose: 0.5 mg Melatonin (Melatonin 3 Mg Tablet) 3 mg PO HS PRN PRN Reason: Insomnia Last Admin: 07/07/23 20:39 Dose: 3 mg Methylprednisolone Sodium Succinate (Methylprednisolone Sod Succi 125 Mg/2 Ml Vial) 60 mg IV Q6HR [facility] Last Admin: 07/07/23 17:50 Dose: 60 mg Metoprolol Tartrate (Metoprolol Tartrate 50 Mg Tab) 50 mg PO BID [facility] Last Admin: 07/07/23 20:01 Dose: 50 mg Miscellaneous Information (Pneumonia Protocol Utilized 1 Each Misc) 1 each PO ONCE PRN PRN Reason: Per Protocol Naloxone HCl (Naloxone 0.4 Mg/Ml 1 Ml Vial) 0.2 mg IV Q2M PRN PRN Reason: Opioid Reversal Nitroglycerin (Nitroglycerin Sl Tabs 0.4 Mg Tab) 0.4 mg SUBLINGUAL Q5M PRN PRN Reason: Chest Pain Last Admin: 06/29/23 17:52 Dose: 0.4 mg Patient's Own ( Nintedanib Esylate [ Ofev] 150 Mg Capsule ) 150 mg PO BID [facility] Last Admin: 07/07/23 20:02 Dose: Not Given Nystatin (Nystatin 100,000 Unit/Ml Susp 500,000 Unit/5 Ml Cup) 500,000 unit PO QID [facility]; Protocol Last Admin: 07/07/23 20:39 Dose: 500,000 unit Ondansetron HCl (Ondansetron 4 Mg/2 Ml Vial) 4 mg IVP Q8HR PRN PRN Reason: Nausea And Vomiting Last Admin: 07/04/23 22:59 Dose: 4 mg Pantoprazole Sodium (Pantoprazole 40 Mg Tablet) 40 mg PO DAILY [facility] Last Admin: 07/07/23 08:18 Dose: 40 mg Polyethylene Glycol (Polyethylene Glycol 3350 17 Gm Powd.Pack) 17 gm PO HS PRN PRN Reason: Constipation Last Admin: 06/26/23 08:20 Dose: 17 gm Ranolazine (Ranolazine 500 Mg Tab.Er.12h) 1,000 mg PO Q12HR [facility] Last Admin: 07/07/23 20:01 Dose: 1,000 mg Rivaroxaban (Rivaroxaban 20 Mg Tab) 20 mg PO W/SUPPER [facility]; Protocol Last Admin: 07/07/23 17:50 Dose: 20 mg Zolpidem Tartrate (Zolpidem 5 Mg Tab) 5 mg PO HS PRN PRN Reason: Insomnia Past medical history to include: Atrial fibrillation, CAD, COPD, GERD, hyperlipidemia, hypertension, osteoarthritis, COVID 19, bradycardia with pacemaker, lumbar disc disorder, ventral hernia, pulmonary fibrosis, nocturnal oxygen, CAD with stent and coronary bypass in 2004 Social history: . 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 Smoked for about 48 years since the age of 17 stopped in 2016. Alcohol rarely. Physical examination: VITAL SIGNS: 97.5, 80, 30, 105/62, 91% on 60 L and 90% Airvo GENERAL: Laying in bed, tired, short of breath EYES: Pupils equal. Conjunctiva normal. HEENT: External appearance of nose and ears normal, oral cavity grossly normal. NECK: JVD not raised; masses not palpable. HEART: First and second heart sounds are normal; no edema. LUNGS: Respiratory rate increased; decreased breath sound some crackles. Not able to speak in full sentences . Accessory muscles -working ABDOMEN: Soft, nontender, liver spleen not palpable, no masses palpable. PSYCH: Lethargic but arousable MUSCULOSKELETAL:No Clubbing/cyanosis;muscles-grossly intact. OA INVESTIGATIONS, reviewed in the clinical context: July 07: White count 14 hemoglobin 10.4 platelets 249 potassium 4.5 creatinine 0.59 July 04: Procalcitonin 0.11 Doppler ultrasound left upper extremity [July 04]: Negative for DVT June 30: White count 22.8 hemoglobin 13.8 potassium 3.7 creatinine 0.8 Chest CTA: Pleural calcifications. No pulmonary embolism. 2-D echocardiogram: Hypokinetic inferior wall. Mild to moderate mitral regurgitation, pulmonic regurgitation 5%. Troponin I less than 0.012 Procalcitonin 0.06. Urine Legionella antigen: Negative White count 11.0 hemoglobin 15.2 platelets 250 potassium 4.1 BUN 11 creatinine 0.67 ProBNP 755 Troponin I 0.015 Influenza type A, B, RSV, COVID-19 PCR: Noninjected EKG tracing personally reviewed by me-no sinus rhythm. Nonspecific ST-T wave changes. Chest x-ray film personally reviewed by me-hyperinflation. Some basal chronic changes. Pacemaker. Assessment plan: -Acute shortness of breath or loss for 5 days with increasing hypoxia. Patient had cold-like symptoms about a week ago. Finding is started having increasing shortness of breath and hypoxia with activity. likely a combination of exacerbation of pulmonary fibrosis and COPD. Cardiac ischemia .: Not improving -Angioplasty to circumflex -Anterior chest wall pain with inferior wall hypokinesis on 2-D echo.: Unstable angina Negative troponin. Cardiac catheterization -RCA is totally occluded. Circ umflex and the distal portion beyond the stented segment 70-80% stenosis. Diffuse disease in LAD. Vein graft to the obtuse marginal occluded. And vein graft to PLV branch of the circumflex is patent. Multiple areas of narrowing 40%. Patient underwent angioplasty. It was felt by the shear operator automatic that stent could not be appropriate in the anatomical findings. Angioplasty to the circumflex carried out -Probable superimposed pneumonia IV cefepime-discontinued -IV heparin monitoring-discontinued -Acute on chronic hypoxic respiratory failure, multifactorial: Slow to respond AIRVO 60/92 -Acute metabolic encephalopathy: multifactorial -Acute COPD exacerbation, and a previous smoker: Slow to respond DuoNeb. IV Solu-Medrol 60 mg every 6 -Chronic pulmonary fibrosis possibly acute exacerbation of symptoms precipitated by viral infection IV Solu-Medrol 60 mg every 6 -Coronary artery disease prior history of coronary bypass and stent Imdur 60 mg a day. Ranexa 500 mg twice daily -Essential hypertension Metoprolol 50 mg twice a day, Zestril 2.5 mg daily at bedtime, Imdur 30 mg a day -Depression otherwise specified Wellbutrin SR 150 mg twice a day -Paroxysmal atrial fibrillation, currently sinus rhythm Xarelto, Lopressor -DO NOT RESUSCITATE AIRVO IV Lasix 20 mg daily. Steroids. . IV cefepime-discontinued. Prognosis guarded. DO NOT RESUSCITATE
[2023-07-08] MEDS: LORazepam 0.5 MG TAB PO PRN ×2 (00:53→20:58)
[2023-07-08 04:42] LABS: Anisocytosis Slight; Basophils % (A) 0 %; Eosinophils % (A) 0 %; HCT 29.1 % (39.0-53.0); HGB 9.9 gm/dL (13.0-17.5); Lymphocytes # (A) 0.4 k/uL (1.0-4.8); Lymphocytes % (A) 1 %; MCH 32.1 pg (25.0-35.0); MCHC 33.9 g/dL (31.0-37.0); MCV 94.6 fL (80.0-100.0); Mean Platelet Volume 7.9; Monocytes # (A) 1.4 k/uL (0-1.0); Monocytes % (A) 4 %; Neutrophils % (A) 94 %; Platelet Count 233 k/uL (150-450); RBC 3.07 m/uL (4.30-5.90); RDW 16.5 % (11.5-15.5); WBC 32.5 k/uL (3.8-10.6)
[2023-07-08 04:51] LABS: Neutrophils # (A) 30.5 k/uL (1.3-7.7)
[2023-07-08 04:53] LABS: African American GFR (CKD) >90 (>60 ml/min/1.73 sqM); Anion Gap 3 mmol/L; Blood Urea Nitrogen 44 mg/dL (9-20); Carbon Dioxide 27 mmol/L (22-30); Chloride 104 mmol/L (98-107); Glucose 119 mg/dL (74-99); Non-African American GFR(CKD) >90 (>60 ml/min/1.73 sqM); Potassium 4.6 mmol/L (3.5-5.1); Sodium 134 mmol/L (137-145)
[2023-07-08] MEDS: methylPREDNISolone SOD SUCCI 125 MG/2 ML VIAL IV SCH ×4 (06:08→23:25)
[2023-07-08 06:33] LABS: Glucose,Whole Blood 129 mg/dL (70-110)
--- NOTE | 2023-07-08 07:33 | P.PN ---
Subjective Progress Note Date: 07/08/23 PROGRESS NOTE The patient is a 72-year-old male with known history of pulmonary fibrosis, oxygen dependent, atrial fibrillation, paroxysmal, status post CABG who presented with hypoxemia and had episodes of chest discomfort. He underwent cardiac catheterization and stenting of the left circumflex by Dr. Falk. He is doing well this morning. He continues to have dyspnea requiring oxygen supplementation. He had episodes of paroxysmal atrial fibrillation. He denies any chest discomfort or dizziness. His blood pressure is stable. He denies any nausea or vomiting. His urinary output has been stable. His echocardiogram showed a preserved systolic function. July 08: He is doing well this morning, feels better. He had episodes of atrial fibrillation yesterday morning but continues to be in sinus mechanism at this time he denies any chest discomfort dizziness or palpitations. He denies any nausea. He continues to be on airflow. His blood pressure is stable. His urinary output is good. Medications: Aspirin 81 mg daily, Lipitor 80 mg daily, Plavix 75 mg daily, Zestril 5 mg daily, metoprolol 50 mg twice a day, Ranexa 1 g twice a day, Xarelto 20 mg daily PHYSICAL EXAMINATION: Blood pressure 106/60 heart rate 62 LUNGS: Bilateral crackles and rhonchi HEART: Regular rate and rhythm, S1, S2. No S3. Systolic ejection murmur ABDOMEN: Soft, nontender, no organomegaly EXTREMETIES: No edema LAB: WBC 32.5, hemoglobin 9.9, BUN 44, creatinine 0.58 IMPRESSION: 1. Respiratory failure with severe pulmonary fibrosis 2. Status post recent stenting of the left circumflex with no further symptoms of angina 3. Paroxysmal atrial fibrillation, anticoagulated, maintaining sinus mechanism at this time 4. Hypertension 5. Hyperlipidemia PLAN: 1. Continue present therapy 2. Stop aspirin on 07/10 and continue Plavix and anticoagulation 3. Increase physical activity as tolerated 4. Further treatment of respiratory status per pulmonary service Objective - Vital Signs Vital signs: Vital Signs Temp 97.5 F L 07/08/23 04:00 Pulse 54 L 07/08/23 07:00 Resp 22 07/08/23 07:00 BP 106/57 07/08/23 07:00 Pulse Ox 96 07/08/23 07:00 FiO2 90 07/08/23 06:00 Intake & Output 07/07/23 07/08/23 07/08/23 18:59 06:59 18:59 Intake Total 740 120 Output Total 900 600 0 Balance -160 -480 0 Weight 64.3 kg 62.7 kg Intake: IV 100 Cefepime 2 gm In Sodium 100 Chloride 0.9% 100 ml @ 25 mls/hr IVPB Q8H [facility] Rx#: [id number] Intake, IV Titration 100 Amount Cefepime 2 gm In Sodium 100 Chloride 0.9% 100 ml @ 25 mls/hr IVPB Q8H [facility] Rx#: [id number] Oral 540 120 Output: Urine 900 600 0 Other: Voiding Method Urinal Urinal - Labs CBC & Chem 7: 07/08/23 04:11 07/08/23 04:11 Labs: Abnormal Lab Results - Last 24 Hours (Table) 07/07/23 07/07/23 07/08/23 Range/Units 18:08 20:35 04:11 WBC 32.5 H (3.8-10.6) k/uL RBC 3.07 L (4.30-5.90) m/uL Hgb 9.9 L (13.0-17.5) gm/dL Hct 29.1 L (39.0-53.0) % RDW 16.5 H (11.5-15.5) % Neutrophils # 30.5 H (1.3-7.7) k/uL Lymphocytes # 0.4 L (1.0-4.8) k/uL Monocytes # 1.4 H (0-1.0) k/uL Sodium (137-145) mmol/L BUN (9-20) mg/dL Creatinine (0.66-1.25) mg/dL Glucose (74-99) mg/dL POC Glucose (mg/dL) 168 H 175 H (70-110) mg/dL Calcium (8.4-10.2) mg/dL 07/08/23 07/08/23 Range/Units 04:11 06:32 WBC (3.8-10.6) k/uL RBC (4.30-5.90) m/uL Hgb (13.0-17.5) gm/dL Hct (39.0-53.0) % RDW (11.5-15.5) % Neutrophils # (1.3-7.7) k/uL Lymphocytes # (1.0-4.8) k/uL Monocytes # (0-1.0) k/uL Sodium 134 L (137-145) mmol/L BUN 44 H (9-20) mg/dL Creatinine 0.58 L (0.66-1.25) mg/dL Glucose 119 H (74-99) mg/dL POC Glucose (mg/dL) 129 H (70-110) mg/dL Calcium 8.0 L (8.4-10.2) mg/dL
[2023-07-08] MEDS: buPROPion SR 150 MG TABLET.ER PO SCH ×2 (08:21→20:55)
[2023-07-08] MEDS: BENZONATATE 100 MG CAP PO SCH ×3 (08:21→20:55)
[2023-07-08] MEDS: NYSTATIN 100,000 UNIT/ML SUSP 500,000 UNIT/5 ML CUP PO SCH ×4 (08:22→20:55)
[2023-07-08] MEDS: METOPROLOL TARTRATE 50 MG TAB PO SCH ×2 (08:22→20:54)
[2023-07-08] MEDS: CLOPIDOGREL 75 MG TAB PO SCH (08:22)
[2023-07-08] MEDS: PANTOPRAZOLE 40 MG TABLET PO SCH (08:22)
[2023-07-08] MEDS: FUROSEMIDE 10 MG/ML 2 ML VIAL IV SCH (08:22)
[2023-07-08] MEDS: ASPIRIN 81 MG PO SCH (08:22)
[2023-07-08] MEDS: GABAPENTIN 300 MG CAP PO SCH ×2 (08:22→20:54)
[2023-07-08] MEDS: FORMOTEROL FUMARATE 20 MCG/2 ML NEBU INHALATION SCH ×2 (08:23→20:48)
[2023-07-08] MEDS: RANOLAZINE 500 MG TAB.ER.12H PO SCH ×2 (08:23→20:54)
[2023-07-08] MEDS: BUDESONIDE 1 MG/2 ML NEBU INHALATION SCH ×2 (08:23→20:48)
[2023-07-08] MEDS: IPRATROPIUM-ALBUTEROL 3 ML NEB INHALATION SCH ×4 (08:24→20:48)
[2023-07-08] MEDS: ALPRAZolam 0.25 MG TAB PO PRN ×2 (10:17→18:36)
--- NOTE | 2023-07-08 10:26 | XR ---
EXAMINATION TYPE: XR chest 1V portable DATE OF EXAM: 07/08/2023 COMPARISON: 07/07/2023 INDICATION: Pulmonary fibrosis with pneumonia TECHNIQUE: Single frontal view of the chest is obtained. FINDINGS: The heart size is normal. The pulmonary vasculature is normal. Diffuse increased lung markings are through the right lung and at the left base. Findings can be comp atible with pulmonary fibrosis. Superimposed pneumonia is within the differential. Findings appear st able from comparison. 2-lead pacemaker overlies left chest. Sternotomy wires are in the midline. IMPRESSION: 1. Pulmonary fibrosis. Overlying infiltrate associated with pneumonia could be considered. Findings a ppear stable. Continued follow-up is recommended.
[2023-07-08] MEDS: LORazepam 2 MG/ML INJ IV PRN ×2 (10:58→15:16)
--- NOTE | 2023-07-08 11:21 | P.PN ---
Subjective Progress Note Date: 07/08/23 Principal diagnosis: Respiratory failure. Patient was reevaluated today on 07/03/2023, remains on BiPAP since yesterday, he is on //60% with marginal O2 saturation. Patient continues to have shortness of breath, and intermittent cough. Follow-up chest x-ray today continues to show severe interstitial lung disease with diffuse coarse reticular opacities right more so than left. Chest x-ray now is much worse of the chest x-ray he had on 06/24/2023, patient seems to be developing a extremely rapid worsening course of pulmonary fibrosis, although the possibility of underlying pneumonia or underlying interstitial edema is not entirely ruled out, and we are giving the patient antibiotics and he is also receiving diuretics. Looking back at his x-rays and the progression of the interstitial changes, for some reason he had a dramatic worsening of the chest x-ray shortly after he came back from cardiac catheterization., Wondering if the patient developed flash pulmonary edema after his cardiac catheterization, and I will check a BNP level, and I will push more diuretics on the patient. In the meantime we continue antibiotics and continue bronchodilators and steroids as well as BiPAP Reevaluated today on 07/04/2023 patient remains on BiPAP., Patient is still h aving difficulty taking off his BiPAP as he gets extremely short of breath. Chest x-ray is showing slight improvement but clinically he is about the same. Patient remains on steroids, bronchodilators, diuretics, antibiotics, his WBC count is coming down to 26.8, rest of the labs are basically unremarkable, his BNP level was not elevated and his pro-calcitonin level is 0.09 also not significantly elevated. Nonetheless the patient continues to have significant difficulty with his shortness of breath. I am going to recommend a d-dimer on this patient, and if elevated may consider CT angiogram of the chest. Patient was on heparin yesterday, and today he is on Plavix. Reevaluated today on 07/05/2023, patient remains extremely marginal, remains on BiPAP, 12/90% patient is becoming basically BiPAP dependent chest x-ray today continues to show the same similar findings of diffuse interstitial lung disease right more so than left consistent with usual interstitial pneumonitis/idiopathic pulmonary fibrosis. Continues to have intermittent episodes of leukemoid reactions his white count today is 41.4. Patient was placed empirically on cefepime. Not much of the changes noted on the chest x- ray today, at least is not enough to explain his profound hypoxemia. It is sort of surprising to me that the patient's condition deteriorated shortly after he underwent cardiac catheterization. I am recommending a repeat echocardiogram on this patient to assess LV function. In the meantime the patient is receiving and responding well to diuretics. He has been in negative balance all along. His BUN today is 59 and creatinine 0.70. His d-dimer yesterday was 0.63 and the patient did have a negative CT angiogram for pulmonary embolism a week ago. Hence I see no signs of repeating his CT angiogram, not to mention the patient is also on Xarelto. Considering the situation being marginal I am sending the patient down to the ICU for close observation, and in the meantime I'm recommen ding repeat echocardiogram. Discussed with the at bedside, if his condition gets any worse, we will recommend intubation and mechanical ventilation. Patient was seen and evaluated today on 07/06/2023, remains on BiPAP, patient is on 12/6/80%. Remains on diuretics Lasix 40 mg IV push twice a day remains on Solu-Medrol 60 mg IV push every 6 hours remains on cefepime and is also on Xarelto. Patient seems to be comfortable as long as he is keeping the BiPAP on. Continues to have leukocytosis with WBC of 40.6 hemoglobin is 11 basic metabolic profile is normal renal profile is normal, repeat echocardiogram is pending seems to be concerning to me that all of that developed after his cardi ac catheterization and I am curious to know if the patient still has the same LV function. Patient is being followed by cardiology, recommended to resume Xarelto, added Ranexa, and the patient is on aspirin and Plavix. Progress note dated 07/07/2023. This is a 72-year-old male with established history of pulmonary fibrosis/interstitial lung disease. He was admitted on June 24, and came to the intensive care unit on July 05. The patient had worsening hypoxemic respiratory failure. He's currently on AIRVO at 60 L/m with an FiO2 of 90%, or BiPAP, with settings of 12/6, 70%. He's not receiving any IV fluids. The patient has completed a course of cefepime. White count is 40,000, hemoglobin 10.4, hematocrit 31.7, platelet count 249,000. Sodium 138, potassium 4.5, chlorides 107, CO2 27, BUN 48, creatinine 0.59. Sputum and blood sampling has been negative. Chest x-ray shows diffuse interstitial and fibrotic reticular changes. Progress note dated 07/08/2023. 72-year-old male with a history of pulmonary fibrosis/interstitial lung disease, admitted on June 24. The patient came to the intensive care unit, for worsening hypoxemic respiratory on July 05. Currently, he's seen in room 258. The patient's on AIRVO at 60 L/m with an FiO2 of 90%. He's not receiving any IV fluids. White count is 32.5, hemoglobin 9.9, hematocrit 29.1, and platelet count 233,000. Sodium 134, potassium 4.6, chlorides 104, CO2 27, BUN 44, creatinine 0.58. Calcium is 8. Chest x-ray is unchanged, and shows evidence of interstitial lung disease. Objective - Vital Signs Vital signs: Vital Signs Temp 97.6 F 07/08/23 08:00 Pulse 75 07/08/23 10:00 Resp 29 H 07/08/23 10:00 BP 111/70 07/08/23 10:00 Pulse Ox 91 L 07/08/23 10:00 FiO2 92 07/08/23 08:26 Intake & Output 07/07/23 07/08/23 07/08/23 18:59 06:59 18:59 Intake Total 740 120 180 Output Total 900 600 820 Balance -160 -480 -640 Weight 64.3 kg 62.7 kg Intake: IV 100 Cefepime 2 gm In Sodium 100 Chloride 0.9% 100 ml @ 25 mls/hr IVPB Q8H RODNEY Rx#: [id number] Intake, IV Titration 100 Amount Cefepime 2 gm In Sodium 100 Chloride 0.9% 100 ml @ 25 mls/hr IVPB Q8H RODNEY Rx#: [id number] Oral 540 120 180 Output: Urine 900 600 820 Other: Voiding Method Urinal Urinal Urinal # Voids 1 - Exam No acute distress, somnolent, currently on AIRVO. Mildly tachypneic. HEENT examination is grossly unremarkable. Neck supple. Full range of motion. No adenopathy thyromegaly or neck vein distention. Cardiovascular examination reveals regular rhythm rate. S1-S2 normal. No S3 or S4. No discernible murmur noted. Heart rate 75 bpm. Heart sounds are distant. Lungs reveal bilateral dry crackles. Breath sounds equal bilaterally. No rhonchi. No wheezes. Saturations are 91% on AIRVO. Abdomen soft bowel sounds are heard. No masses or tenderness. Extremities are intact. No cyanosis clubbing or edema. Skin is without rash or lesion. Neurologic examination is brief but nonfocal. - Labs CBC & Chem 7: 07/08/23 04:11 07/08/23 04:11 Labs: Abnormal Lab Results - Last 24 Hours (Table) 07/07/23 07/07/23 07/08/23 Range/Units 18:08 20:35 04:11 WBC 32.5 H (3.8-10.6) k/uL RBC 3.07 L (4.30-5.90) m/uL Hgb 9.9 L (13.0-17.5) gm/dL Hct 29.1 L (39.0-53.0) % RDW 16.5 H (11.5-15.5) % Neutrophils # 30.5 H (1.3-7.7) k/uL Lymphocytes # 0.4 L (1.0-4.8) k/uL Monocytes # 1.4 H (0-1.0) k/uL Sodium (137-145) mmol/L BUN (9-20) mg/dL Creatinine (0.66-1.25) mg/dL Glucose (74-99) mg/dL POC Glucose (mg/dL) 168 H 175 H (70-110) mg/dL Calcium (8.4-10.2) mg/dL 07/08/23 07/08/23 Range/Units 04:11 06:32 WBC (3.8-10.6) k/uL RBC (4.30-5.90) m/uL Hgb (13.0-17.5) gm/dL Hct (39.0-53.0) % RDW (11.5-15.5) % Neutrophils # (1.3-7.7) k/uL Lymphocytes # (1.0-4.8) k/uL Monocytes # (0-1.0) k/uL Sodium 134 L (137-145) mmol/L BUN 44 H (9-20) mg/dL Creatinine 0.58 L (0.66-1.25) mg/dL Glucose 119 H (74-99) mg/dL POC Glucose (mg/dL) 129 H (70-110) mg/dL Calcium 8.0 L (8.4-10.2) mg/dL Assessment and Plan Assessment: Acute on chronic hypoxemic respiratory failure, secondary to acute exacerbation of interstitial lung disease/pulmonary fibrosis, with likely diffuse alveolar damage (DAD). History of COPD exacerbation. Flash pulmonary edema, following cardiac catheterization. Chest pain/unstable angina, status post cardiac catheterization with ballooning of the circumflex coronary artery. Status post previous CABG. History of permanent pacemaker implantation. Benign essential hypertension. Paroxysmal atrial fibrillation. History of dyslipidemia. Plan: Plan dated 07/07/2023. Currently, the patient is resting in the intensive care unit, 258. The patient's currently on AIRVO, at 60 L/m with an FiO2 of 90%. The cefepime has been discontinued, as he received appropriate treatment with this antibiotic. There is no clear evidence of infection at this time. I did have a conversation with Anna, the , about long-term care of this patient. I've asked her to start thinking about whether or not Jey would want to be on the mechanical ventilator, and would want tracheostomy and feeding tube placement, should he not be able to be weaned off. I think it would be a bad idea for the patient end up on mechanical ventilation, given his severe pulmonary fibrosis. Anyway, she'll talk to other family members about that, and get back with us. Plan dated 07/08/2023. I had a chance to speak to the , Anna yesterday, and after my conversation, they call back to the hospital, to make Kirstie DO NOT RESUSCITATE, and stated that they would not want him on mechanical ventilation. That is also what the patient wants. The patient's currently receiving appropriate medical therapy. Labs, x-rays, and medications are reviewed. I believe the patient has developed diffuse alveolar damage, with acute exacerbation of his interstitial lung disease. We will continue to follow make recommendations were appropriate. Prognosis is certainly guarded. Time with Patient: Greater than 30
[2023-07-08 11:56] LABS: Glucose,Whole Blood 132 mg/dL (70-110)
[2023-07-08] MEDS: PATIENT'S OWN (Nintedanib Esylate [Ofev] 150 MG Capsule) PO SCH ×2 (11:57→20:56)
[2023-07-08 16:58] LABS: Glucose,Whole Blood 179 mg/dL (70-110)
[2023-07-08] MEDS: RIVAROXABAN 20 MG TAB PO SCH (18:36)
--- NOTE | 2023-07-08 19:19 | P.PN ---
Progress Note - Text Progress Note Date: 07/08/23 Chief Complaint: Short of breath This is a pleasant 72-year-old, follows with Dr. Emilia Bob. 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 [employer] Dr. Farias. Normally uses 2 L of oxygen at night. Sometimes excessive activity in the daytime. About a week ago patient developed 40 to describe neck: Neck symptoms the runny nose. Subsequently's been noticing that is getting increasingly short of breath example going up the stairs. And oxygen pulse ox dropped down to 70-82%. No cough. No fever no chills. Just tired. Negative self COVID negative test. Patient had 3 bouts of COVID 19 2020. Patient at that time and received BAM. June 25: Up in a chair. at the bedside. Did desaturate going to the bathroom. Changed to Perforomist and nebulized steroids. IV steroids to continue. Follow with pulmonary. Discussed. Seen by cardiology. Increased Im dur. Added Ranexa. June 30: I resumed care of the patient today. Up in a chair. He does some chest pain yesterday resolved by nitro.. Seen by cardiology. Plan for cardiac catheterization. at the bedside. July 01: Cardiac catheterization postponed for tomorrow. Does get tired with activity. Discussed with patient daughter the bedside. On IV heparin. July 02: Patient underwent cardiac catheterization Dr. LIDIA Falk today. RCA is totally occluded. Circumflex and the distal portion beyond the stented segment 70-80% stenosis. Diffuse disease in LAD. Vein graft to the obtuse m arginal occluded. And vein graft to PLV branch of the circumflex is patent. Multiple areas of narrowing 40%. Patient underwent angioplasty. It was felt by the bridge saw operator that stent could not be appropriate in the anatomical findings. Patient return to the floor. Postprocedure shortness of breath. Placed on a BiPAP. July 03: Remains on BiPAP. Short of breath. Getting IV Lasix. Also lesly nues steroids. Discussed with patient and Dr. Harris. Follow with cardiology. July 04: Patient remains clinically short of breath. On BiPAP. 70-80%. We'll try him to feed with a straw. Tired. Left arm swelling noted. Doppler ultrasound was negative for DVT. We'll consult vascular. No pain. Has been present for about 2-3 weeks he states.Chest x-ray film personally reviewed by me-coarse infiltrates July 05: Patient moved to the ICU because of increasing shortness of breath. On BiPAP. 90%. Tired. Discussed with and son at the bedside. Remains on bronchodilators. IV steroids. IV cefepime. IV Lasix. Some oral intake with straw, Ensure. Patient seen by vascular Dr. Gardner from left extremity swelling. Keep arm elevated. No DVT. No further vascular intervention. July 06: Remains on BiPAP. 12/6/70%. Tired. Lethargic. Arousable. No fever. IV cefepime.. IV Solu-Medrol. IV Lasix. We'll consult dietitian for TPN and lipids. July 07: ICU. Today patient is paced on AIRVO. 60/92%. This morning it got into atrial fibrillation rapid ventricular rate. Given Lopressor. Back in sinus rhythm. Did tolerate some diet. I saw the patient this afternoon. Later the nurse called me the evening that patient family at, and patient was made DO NOT RESUSCITATE. Spoke to the dietitian. Oral intake encouraged. July 08: ICU. On AIRVO. 60/92%. Family at the bedside. Pain better. Eating slowly. Remains in sinus rhythm. No chest pain. Active Medications Acetaminophen (Acetaminophen Tab 325 Mg Tab) 650 mg PO Q6H PRN PRN Reason: Pain Last Admin: 07/07/23 05:41 Dose: 650 mg Al Hydroxide/Mg Hydroxide (Mag Hydrox/Al Hydrox/Simeth 30 Ml Cup) 30 ml PO Q4HR PRN PRN Reason: Heartburn Albuterol/Ipratropium (Ipratropium-Albuterol 3 Ml Neb) 3 ml INHALATION RT-QID RODNEY Last Admin: 07/08/23 16:10 Dose: 3 ml Albuterol/Ipratropium (Ipratropium-Albuterol 3 Ml Neb) 3 ml INHALATION RT-Q2H PRN PRN Reason: Shortness Of Breath Or Wheezing Alprazolam (Alprazolam 0.25 Mg Tab) 0.25 mg PO Q6HR PRN PRN Reason: Mild Anxiety Last Admin: 07/08/23 18:36 Dose: 0.25 mg Alprazolam (Alprazolam 0.5 Mg Tab) 0.5 mg PO Q6HR PRN PRN Reason: Moderate Anxiety Last Admin: 07/04/23 23:04 Dose: 0.5 mg Aspirin (Aspirin 81 Mg) 81 mg PO DAILY [facility] Last Admin: 07/08/23 08:22 Dose: 81 mg Atorvastatin Calcium (Atorvastatin 80 Mg Tab) 80 mg PO HS [facility] Last Admin: 07/07/23 20:01 Dose: 80 mg Atropine Sulfate (Atropine Sulfate 0.1 Mg/Ml 10ml Syringe) 0.5 mg IV ONCE PRN PRN Reason: Symptomatic Bradycardia Benzonatate (Benzonatate 100 Mg Cap) 200 mg PO TID [facility] Last Admin: 07/08/23 15:20 Dose: 200 mg Budesonide (Budesonide 1 Mg/2 Ml Nebu) 1 mg INHALATION RT-BID [facility] Last Admin: 07/08/23 08:23 Dose: 1 mg Bupropion HCl (Bupropion Sr 150 Mg Tablet.Er) 150 mg PO BID [facility] Last Admin: 07/08/23 08:21 Dose: 150 mg Calcium Carbonate/Glycine (Calcium Carbonate 500 Mg Chewable) 1,000 mg PO Q4HR PRN PRN Reason: Dyspepsia Clopidogrel Bisulfate (Clopidogrel 75 Mg Tab) 75 mg PO DAILY [facility] Last Admin: 07/08/23 08:22 Dose: 75 mg Formoterol Fumarate (Formoterol Fumarate 20 Mcg/2 Ml Nebu) 20 mcg INHALATION RT-BID [facility] Last Admin: 07/08/23 08:23 Dose: 20 mcg Furosemide (Furosemide 10 Mg/Ml 2 Ml Vial) 20 mg IV DAILY [facility] Last Admin: 07/08/23 08:22 Dose: 20 mg Gabapentin (Gabapentin 300 Mg Cap) 300 mg PO BID [facility] Last Admin: 07/08/23 08:22 Dose: 300 mg Guaifenesin/Codeine Phosphate (Guaifenesin-Coden 100-10mg/5ml 10 Ml Cup) 10 ml PO Q6HR PRN PRN Reason: Cough Last Admin: 07/02/23 15:40 Dose: 10 ml Lactulose (Lactulose 20 Gm/30 Ml Cup) 20 gm PO DAILY PRN PRN Reason: Constipation Last Admin: 06/28/23 10:17 Dose: 20 gm Lisinopril (Lisinopril 5 Mg Tab) 5 mg PO HS [facility] Last Admin: 07/07/23 20:39 Dose: 5 mg Loratadine (Loratadine 10 Mg Tab) 10 mg PO DAILY PRN PRN Reason: Allergy Symptoms Lorazepam (Lorazepam 0.5 Mg Tab) 0.5 mg PO Q6HR PRN PRN Reason: Anxiety Last Admin: 07/08/23 00:53 Dose: 0.5 mg Lorazepam (Lorazepam 2 Mg/Ml Inj) 0.5 mg IV Q4HR PRN PRN Reason: Anxiety Last Admin: 07/08/23 15:16 Dose: 0.5 mg Melatonin (Melatonin 3 Mg Tablet) 3 mg PO HS PRN PRN Reason: Insomnia Last Admin: 07/07/23 20:39 Dose: 3 mg Methylprednisolone Sodium Succinate (Methylprednisolone Sod Succi 125 Mg/2 Ml Vial) 60 mg IV Q6HR [facility] Last Admin: 07/08/23 18:36 Dose: 60 mg Metoprolol Tartrate (Metoprolol Tartrate 50 Mg Tab) 50 mg PO BID [facility] Last Admin: 07/08/23 08:22 Dose: 50 mg Miscellaneous Information (Pneumonia Protocol Utilized 1 Each Misc) 1 each PO ONCE PRN PRN Reason: Per Protocol Naloxone HCl (Naloxone 0.4 Mg/Ml 1 Ml Vial) 0.2 mg IV Q2M PRN PRN Reason: Opioid Reversal Nitroglycerin (Nitroglycerin Sl Tabs 0.4 Mg Tab) 0.4 mg SUBLINGUAL Q5M PRN PRN Reason: Chest Pain Last Admin: 06/29/23 17:52 Dose: 0.4 mg Patient's Own ( Nintedanib Esylate [ Ofev] 150 Mg Capsule ) 150 mg PO BID [facility] Last Admin: 07/08/23 11:57 Dose: Not Given Nystatin (Nystatin 100,000 Unit/Ml Susp 500,000 Unit/5 Ml Cup) 500,000 unit PO QID [facility]; Protocol Last Admin: 07/08/23 18:36 Dose: 500,000 unit Ondansetron HCl (Ondansetron 4 Mg/2 Ml Vial) 4 mg IVP Q8HR PRN PRN Reason: Nausea And Vomiting Last Admin: 07/04/23 22:59 Dose: 4 mg Pantoprazole Sodium (Pantoprazole 40 Mg Tablet) 40 mg PO DAILY [facility] Last Admin: 07/08/23 08:22 Dose: 40 mg Polyethylene Glycol (Polyethylene Glycol 3350 17 Gm Powd.Pack) 17 gm PO HS PRN PRN Reason: Constipation Last Admin: 06/26/23 08:20 Dose: 17 gm Ranolazine (Ranolazine 500 Mg Tab.Er.12h) 1,000 mg PO Q12HR RODNEY Last Admin: 07/08/23 08:23 Dose: 1,000 mg Rivaroxaban (Rivaroxaban 20 Mg Tab) 20 mg PO W/SUPPER RODNEY; Protocol Last Admin: 07/08/23 18:36 Dose: 20 mg Zolpidem Tartrate (Zolpidem 5 Mg Tab) 5 mg PO HS PRN PRN Reason: Insomnia Past medical history to include: Atrial fibrillation, CAD, COPD, GERD, hyperlipidemia, hypertension, osteoarthritis, COVID 19, bradycardia with pacemaker, lumbar disc disorder, ventral hernia, pulmonary fibrosis, nocturnal oxygen, CAD with stent and coronary bypass in 2004 Social history: . 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 Smoked for about 48 years since the age of 17 stopped in 2015. Alcohol rarely. Physical examination: VITAL SIGNS: 73, 24, 96/57, 92% on AIRVO 62/90 GENERAL: Laying in bed, tired, short of breath, awake EYES: Pupils equal. Conjunctiva normal. HEENT: External appearance of nose and ears normal, oral cavity grossly normal. NECK: JVD not raised; masses not palpable. HEART: First and second heart sounds are normal; no edema. LUNGS: Respiratory rate increased; decreased breath sound some crackles. Not able to speak in full sentences . ABDOMEN: Soft, nontender, liver spleen not palpable, no masses palpable. PSYCH: Awake, tired, answering questions MUSCULOSKELETAL:No Clubbing/cyanosis;muscles-grossly intact. OA INVESTIGATIONS, reviewed in the clinical context: July 08: White count 32.5 hemoglobin 9.9 potassium 4.6 creatinine 0.58 July 07: White count 14 hemoglobin 10.4 platelets 249 potassium 4.5 creatinine 0.59 July 04: Procalcitonin 0.11 Doppler ultrasound left upper extremity [July 04]: Negative for DVT June 30: White count 22.8 hemoglobin 13.8 potassium 3.7 creatinine 0.8 Chest CTA: Pleural calcifications. No pulmonary embolism. 2-D echocardiogram: Hypokinetic inferior wall. Mild to moderate mitral regurgitation, pulmonic regurgitation 5%. Troponin I less than 0.012 Procalcitonin 0.06. Urine Legionella antigen: Negative White count 11.0 hemoglobin 15.2 platelets 250 potassium 4.1 BUN 11 creatinine 0.67 ProBNP 755 Troponin I 0.015 Influenza type A, B, RSV, COVID-19 PCR: Noninjected EKG tracing personally reviewed by me-no sinus rhythm. Nonspecific ST-T wave changes. Chest x-ray film personally reviewed by me-hyperinflation. Some basal chronic changes. Pacemaker. Assessment plan: -Acute shortness of breath or loss for 5 days with increasing hypoxia. Patient had cold-like symptoms about a week ago. Finding is started having increasing shortness of breath and hypoxia with activity. likely a combination of exacerbation of pulmonary fibrosis and COPD. Cardiac ischemia .: Slow to respond -Angioplasty to circumflex -Anterior chest wall pain with inferior wall hypokinesis on 2-D echo.: Unstable angina Negative troponin. Cardiac catheterization -RCA is totally occluded. Circumflex and the distal portion beyond the stented segment 70-80% stenosis. Diffuse disease in LAD. Vein graft to the obtuse marginal occluded. And vein graft to PLV branch of the circumflex is patent. Multiple areas of narrowing 40%. Patient underwent angioplasty. It was felt by the bridge saw operator that stent could not be appropriate in the anatomical findings. Angioplasty to the circumflex carried out -Probable superimposed pneumonia IV cefepime-discontinued -IV heparin monitoring-discontinued -Acute on chronic hypoxic respiratory failure, multifactorial: Slow to respond AIRVO 60/92 -Acute metabolic encephalopathy: multifactorial -Acute COPD exacerbation, and a previous smoker: Slow to respond DuoNeb. IV Solu-Medrol 60 mg every 6 -Chronic pulmonary fibrosis possibly acute exacerbation of symptoms precipitated by viral infection IV Solu-Medrol 60 mg every 6 -Coronary artery disease prior history of coronary bypass and stent Imdur 60 mg a day. Ranexa 500 mg twice daily -Essential hypertension Metoprolol 50 mg twice a day, Zestril 2.5 mg daily at bedtime, Imdur 30 mg a day -Depression otherwise specified Wellbutrin SR 150 mg twice a day -Paroxysmal atrial fibrillation, currently sinus rhythm Xarelto, Lopressor -DO NOT RESUSCITATE AIRVO IV Lasix 20 mg daily. Steroids. . . Prognosis guarded. Discussed with patient and the family the bedside.
[2023-07-08] MEDS: ATORVASTATIN 80 MG TAB PO SCH (20:53)
[2023-07-08] MEDS: lisinopriL 5 MG TAB PO SCH (20:54)
[2023-07-08] MEDS: MELATONIN 3 MG TABLET PO PRN (23:26)
[2023-07-09] MEDS: methylPREDNISolone SOD SUCCI 125 MG/2 ML VIAL IV SCH (06:13)
[2023-07-09 06:48] LABS: Anisocytosis Slight; Basophils % (A) 0 %; Eosinophils % (A) 0 %; HCT 28.9 % (39.0-53.0); HGB 9.5 gm/dL (13.0-17.5); Lymphocytes # (A) 0.3 k/uL (1.0-4.8); Lymphocytes % (A) 1 %; MCH 31.3 pg (25.0-35.0); MCV 94.9 fL (80.0-100.0); Macrocytosis Slight; Mean Platelet Volume 8.2; Monocytes # (A) 1.6 k/uL (0-1.0); Monocytes % (A) 4 %; Neutrophils # (A) 33.4 k/uL (1.3-7.7); Neutrophils % (A) 94 %; Platelet Count 236 k/uL (150-450); RBC 3.04 m/uL (4.30-5.90); RDW 16.8 % (11.5-15.5); WBC 35.4 k/uL (3.8-10.6)
[2023-07-09 07:13] LABS: ALT 36 U/L (4-49); AST 45 U/L (17-59); African American GFR (CKD) >90 (>60 ml/min/1.73 sqM); Albumin 2.7 g/dL (3.5-5.0); Alkaline Phosphatase 67 U/L (38-126); Anion Gap 5 mmol/L; Blood Urea Nitrogen 44 mg/dL (9-20); Calcium 8.4 mg/dL (8.4-10.2); Carbon Dioxide 26 mmol/L (22-30); Chloride 102 mmol/L (98-107); Glucose 119 mg/dL (74-99); Non-African American GFR(CKD) >90 (>60 ml/min/1.73 sqM); Potassium 4.5 mmol/L (3.5-5.1); Sodium 133 mmol/L (137-145); Total Bilirubin 1.5 mg/dL (0.2-1.3); Total Protein 4.9 g/dL (6.3-8.2)
--- NOTE | 2023-07-09 07:22 | XR ---
EXAMINATION TYPE: XR chest 1V portable DATE OF EXAM: 07/09/2023 HISTORY: pulmonary fibrosis; possible infiltrate COMPARISON: 07/08/2023 TECHNIQUE: Single view of the chest is submitted. FINDINGS: Demonstrated are scattered senescent parenchymal change. Coarse reticulonodular infiltrates persist throughout the right lung and left lower lobe imposed upon changes of pulmonary fibrosis. The heart is stable. Hilar and mediastinal structures are within normal limits. Degenerative changes are seen of the dorsal spine. IMPRESSION: 1. Coarse reticulonodular infiltrates persist throughout the right lung and left lower lobe imposed upon changes of pulmonary fibrosis.
--- NOTE | 2023-07-09 07:33 | P.PN ---
Subjective Progress Note Date: 07/09/23 PROGRESS NOTE The patient is a 72-year-old male with known history of pulmonary fibrosis, oxygen dependent, atrial fibrillation, paroxysmal, status post CABG who presented with hypoxemia and had episodes of chest discomfort. He underwent cardiac catheterization and stenting of the left circumflex by Dr. Falk. He is doing well this morning. He continues to have dyspnea requiring oxygen supplementation. He had episodes of paroxysmal atrial fibrillation. He denies any chest discomfort or dizziness. His blood pressure is stable. He denies any nausea or vomiting. His urinary output has been stable. His echocardiogram showed a preserved systolic function. July 08: He is doing well this morning, feels better. He had episodes of atrial fibrillation yesterday morning but continues to be in sinus mechanism at this time he denies any chest discomfort dizziness or palpitations. He denies any nausea. He continues to be on airflow. His blood pressure is stable. His urinary output is good. July 09: The patient is feeling better this morning, last night he became dyspneic and has some chest discomfort. He is feeling no pain at this time. He continues to be in sinus mechanism. According to the notes patient is a DO NOT RESUSCITATE because of the severe lung disease and pulmonary fibrosis. He has mild hypotension. He has no significant nausea or vomiting and his urinary output has been stable. Medications: Aspirin 81 mg daily, Lipitor 80 mg daily, Plavix 75 mg daily, Zestril 5 mg daily, metoprolol 50 mg twice a day, Ranexa 1 g twice a day, Xarelto 20 mg daily PHYSICAL EXAMINATION: Blood pressure 88/60 heart rate 70 LUNGS: Bilateral crackles and rhonchi HEART: Regular rate and rhythm, S1, S2. No S3. Systolic ejection murmur ABDOMEN: Soft, nontender, no organomegaly EXTREMETIES: No edema LAB: WBC 35.4, hemoglobin 9.5, BUN 44, creatinine 0.57 IMPRESSION: 1. Respiratory failure with severe pulmonary fibrosis 2. Status post recent stenting of the left circumflex 3. Paroxysmal atrial fibrillation, anticoagulated, maintaining sinus mechanism at this time 4. Hypertension 5. Hyperlipidemia PLAN: 1. Stop lisinopril 2. Stop aspirin on 07/10 and continue Plavix and anticoagulation 3. Continue to monitor blood pressure 4. Further treatment of respiratory status per pulmonary service 5. Prognosis is guarded in view of lung status, patient is DO NOT RESUSCITATE Objective - Vital Signs Vital signs: Vital Signs Temp 97.0 F L 07/09/23 03:30 Pulse 66 07/09/23 06:30 Resp 24 07/09/23 06:30 BP 88/58 07/09/23 06:30 Pulse Ox 92 L 07/09/23 06:30 FiO2 90 07/09/23 06:09 Intake & Output 07/08/23 07/09/23 07/09/23 18:59 06:59 18:59 Intake Total 1220 30 0 Output Total 1340 350 0 Balance -120 -320 0 Weight 62.6 kg Intake: IV 0 0.9 KVO 0 Oral 1220 30 Output: Urine 1340 350 0 Other: Voiding Method Urinal Urinal # Voids 1 - Labs CBC & Chem 7: 07/09/23 05:15 07/09/23 05:15 Labs: Abnormal Lab Results - Last 24 Hours (Table) 07/08/23 07/08/23 07/09/23 Range/Units 11:55 16:57 05:15 WBC 35.4 H (3.8-10.6) k/uL RBC 3.04 L (4.30-5.90) m/uL Hgb 9.5 L (13.0-17.5) gm/dL Hct 28.9 L (39.0-53.0) % RDW 16.8 H (11.5-15.5) % Sodium (137-145) mmol/L BUN (9-20) mg/dL Creatinine (0.66-1.25) mg/dL Glucose (74-99) mg/dL POC Glucose (mg/dL) 132 H 179 H (70-110) mg/dL Total Bilirubin (0.2-1.3) mg/dL Total Protein (6.3-8.2) g/dL Albumin (3.5-5.0) g/dL 07/09/23 Range/Units 05:15 WBC (3.8-10.6) k/uL RBC (4.30-5.90) m/uL Hgb (13.0-17.5) gm/dL Hct (39.0-53.0) % RDW (11.5-15.5) % Sodium 133 L (137-145) mmol/L BUN 44 H (9-20) mg/dL Creatinine 0.57 L (0.66-1.25) mg/dL Glucose 119 H (74-99) mg/dL POC Glucose (mg/dL) (70-110) mg/dL Total Bilirubin 1.5 H (0.2-1.3) mg/dL Total Protein 4.9 L (6.3-8.2) g/dL Albumin 2.7 L (3.5-5.0) g/dL
[2023-07-09] MEDS: IPRATROPIUM-ALBUTEROL 3 ML NEB INHALATION SCH (08:35)
[2023-07-09] MEDS: BUDESONIDE 1 MG/2 ML NEBU INHALATION SCH (08:35)
[2023-07-09] MEDS: FORMOTEROL FUMARATE 20 MCG/2 ML NEBU INHALATION SCH (08:35)
[2023-07-09] MEDS: GABAPENTIN 300 MG CAP PO SCH (08:40)
[2023-07-09] MEDS: RANOLAZINE 500 MG TAB.ER.12H PO SCH (08:40)
[2023-07-09] MEDS: ALPRAZolam 0.25 MG TAB PO PRN (08:40)
[2023-07-09] MEDS: METOPROLOL TARTRATE 50 MG TAB PO SCH (08:40)
[2023-07-09] MEDS: CLOPIDOGREL 75 MG TAB PO SCH (08:40)
[2023-07-09] MEDS: BENZONATATE 100 MG CAP PO SCH (08:40)
[2023-07-09] MEDS: ASPIRIN 81 MG PO SCH (08:40)
[2023-07-09] MEDS: NYSTATIN 100,000 UNIT/ML SUSP 500,000 UNIT/5 ML CUP PO SCH (08:40)
[2023-07-09] MEDS: buPROPion SR 150 MG TABLET.ER PO SCH (08:40)
[2023-07-09] MEDS: PANTOPRAZOLE 40 MG TABLET PO SCH (08:41)
[2023-07-09] MEDS ORDERED: FUROSEMIDE 20 MG TAB PO SCH (09:00)
[2023-07-09] MEDS ORDERED: HYDROmorphone 1 MG/ML 1 ML SYRINGE IVP PRN (09:34)
[2023-07-09] MEDS: PATIENT'S OWN (Nintedanib Esylate [Ofev] 150 MG Capsule) PO SCH (10:34)
[2023-07-09] MEDS ORDERED: SCOPOLAMINE 1 MG/72 HR PATCH TRANSDERM SCH (11:00)
--- NOTE | 2023-07-09 12:13 | P.PN ---
Subjective Progress Note Date: 07/09/23 Principal diagnosis: Respiratory failure. Patient was reevaluated today on 07/03/2023, remains on BiPAP since yesterday, he is on //60% with marginal O2 saturation. Patient continues to have shortness of breath, and intermittent cough. Follow-up chest x-ray today continues to show severe interstitial lung disease with diffuse coarse reticular opacities right more so than left. Chest x-ray now is much worse of the chest x-ray he had on 06/24/2023, patient seems to be developing a extremely rapid worsening course of pulmonary fibrosis, although the possibility of underlying pneumonia or underlying interstitial edema is not entirely ruled out, and we are giving the patient antibiotics and he is also receiving diuretics. Looking back at his x-rays and the progression of the interstitial changes, for some reason he had a dramatic worsening of the chest x-ray shortly after he came back from cardiac catheterization., Wondering if the patient developed flash pulmonary edema after his cardiac catheterization, and I will check a BNP level, and I will push more diuretics on the patient. In the meantime we continue antibiotics and continue bronchodilators and steroids as well as BiPAP Reevaluated today on 07/04/2023 patient remains on BiPAP., Patient is still h aving difficulty taking off his BiPAP as he gets extremely short of breath. Chest x-ray is showing slight improvement but clinically he is about the same. Patient remains on steroids, bronchodilators, diuretics, antibiotics, his WBC count is coming down to 26.8, rest of the labs are basically unremarkable, his BNP level was not elevated and his pro-calcitonin level is 0.09 also not significantly elevated. Nonetheless the patient continues to have significant difficulty with his shortness of breath. I am going to recommend a d-dimer on this patient, and if elevated may consider CT angiogram of the chest. Patient was on heparin yesterday, and today he is on Plavix. Reevaluated today on 07/05/2023, patient remains extremely marginal, remains on BiPAP, 12/90% patient is becoming basically BiPAP dependent chest x-ray today continues to show the same similar findings of diffuse interstitial lung disease right more so than left consistent with usual interstitial pneumonitis/idiopathic pulmonary fibrosis. Continues to have intermittent episodes of leukemoid reactions his white count today is 41.4. Patient was placed empirically on cefepime. Not much of the changes noted on the chest x- ray today, at least is not enough to explain his profound hypoxemia. It is sort of surprising to me that the patient's condition deteriorated shortly after he underwent cardiac catheterization. I am recommending a repeat echocardiogram on this patient to assess LV function. In the meantime the patient is receiving and responding well to diuretics. He has been in negative balance all along. His BUN today is 59 and creatinine 0.70. His d-dimer yesterday was 0.63 and the patient did have a negative CT angiogram for pulmonary embolism a week ago. Hence I see no signs of repeating his CT angiogram, not to mention the patient is also on Xarelto. Considering the situation being marginal I am sending the patient down to the ICU for close observation, and in the meantime I'm recommen ding repeat echocardiogram. Discussed with the at bedside, if his condition gets any worse, we will recommend intubation and mechanical ventilation. Patient was seen and evaluated today on 07/06/2023, remains on BiPAP, patient is on 12/6/80%. Remains on diuretics Lasix 40 mg IV push twice a day remains on Solu-Medrol 60 mg IV push every 6 hours remains on cefepime and is also on Xarelto. Patient seems to be comfortable as long as he is keeping the BiPAP on. Continues to have leukocytosis with WBC of 40.6 hemoglobin is 11 basic metabolic profile is normal renal profile is normal, repeat echocardiogram is pending seems to be concerning to me that all of that developed after his cardi ac catheterization and I am curious to know if the patient still has the same LV function. Patient is being followed by cardiology, recommended to resume Xarelto, added Ranexa, and the patient is on aspirin and Plavix. Progress note dated 07/07/2023. This is a 72-year-old male with established history of pulmonary fibrosis/interstitial lung disease. He was admitted on June 24, and came to the intensive care unit on July 05. The patient had worsening hypoxemic respiratory failure. He's currently on AIRVO at 60 L/m with an FiO2 of 90%, or BiPAP, with settings of 12/6, 70%. He's not receiving any IV fluids. The patient has completed a course of cefepime. White count is 40,000, hemoglobin 10.4, hematocrit 31.7, platelet count 249,000. Sodium 138, potassium 4.5, chlorides 107, CO2 27, BUN 48, creatinine 0.59. Sputum and blood sampling has been negative. Chest x-ray shows diffuse interstitial and fibrotic reticular changes. Progress note dated 07/08/2023. 72-year-old male with a history of pulmonary fibrosis/interstitial lung disease, admitted on June 24. The patient came to the intensive care unit, for worsening hypoxemic respiratory on July 05. Currently, he's seen in room 258. The patient's on AIRVO at 60 L/m with an FiO2 of 90%. He's not receiving any IV fluids. White count is 32.5, hemoglobin 9.9, hematocrit 29.1, and platelet count 233,000. Sodium 134, potassium 4.6, chlorides 104, CO2 27, BUN 44, creatinine 0.58. Calcium is 8. Chest x-ray is unchanged, and shows evidence of interstitial lung disease. Progress note dated 07/09/2023. 72-year-old male with history of end-stage pulmonary fibrosis/interstitial lung disease, who was admitted to the hospital June 24. He came to the intensive care unit, for worsening hypoxemic respiratory failure on July 05. He is seen today again in room 258. Yesterday I spoke to his , Anna, about CODE STATUS. She did decide to make him a DO NOT RESUSCITATE. The patient would do very poorly on mechanical ventilation, and eventually would need a tracheostomy, and a feeding tube. She said, he would not want that. Currently, the patient is on both in AIRVO, at 60 L/m and an FiO2 of 90%, and a nonrebreather mask. The patient's not receiving any IV fluids. The family has decided to go with comfort care. I believe that to be very appropriate. White count 35.4, hemoglobin 9.5, hematocrit 28.9, with a platelet count that is normal. Sodium 133, potassium 4.5, chlorides 102, CO2 26, BUN 44, and creatinine 0.57. Albumin is 2.7. Chest x-ray is essentially unchanged, and shows evidence of interstitial lung disease/pulmonary fibrosis. Objective - Vital Signs Vital signs: Vital Signs Temp 98 F 07/09/23 08:00 Pulse 66 07/09/23 10:30 Resp 35 H 07/09/23 10:30 BP 99/58 07/09/23 10:30 Pulse Ox 91 L 07/09/23 10:30 FiO2 92 07/09/23 11:10 Intake & Output 07/08/23 07/09/23 07/09/23 18:59 06:59 18:59 Intake Total 1220 30 0 Output Total 1340 350 0 Balance -120 -320 0 Weight 62.6 kg Intake: IV 0 0.9 KVO 0 Oral 1220 30 Output: Urine 1340 350 0 Other: Voiding Method Urinal Urinal # Voids 1 - Exam No acute distress, somnolent, currently on AIRVO and a nonrebreather mask. P atient is manifesting signs of worsening respiratory failure. HEENT examination is grossly unremarkable. Neck supple. Full range of motion. No adenopathy thyromegaly or neck vein distention. Cardiovascular examination reveals regular rhythm rate. S1-S2 normal. No S3 or S4. No discernible murmur noted. Heart rate 92 bpm. Heart sounds are distant. Lungs reveal bilateral dry crackles. Breath sounds equal bilaterally. No rhonchi. No wheezes. Saturations are 90 % on AIRVO, and a nonrebreather mask. Abdomen soft bowel sounds are heard. No masses or tenderness. Extremities are intact. No cyanosis clubbing or edema. Skin is without rash or lesion. Neurologic examination reveals a very somnolent patient. - Labs CBC & Chem 7: 07/09/23 05:15 07/09/23 05:15 Labs: Abnormal Lab Results - Last 24 Hours (Table) 07/08/23 07/09/23 07/09/23 Range/Units 16:57 05:15 05:15 WBC 35.4 H (3.8-10.6) k/uL RBC 3.04 L (4.30-5.90) m/uL Hgb 9.5 L (13.0-17.5) gm/dL Hct 28.9 L (39.0-53.0) % RDW 16.8 H (11.5-15.5) % Neutrophils # 33.4 H (1.3-7.7) k/uL Lymphocytes # 0.3 L (1.0-4.8) k/uL Monocytes # 1.6 H (0-1.0) k/uL Sodium 133 L (137-145) mmol/L BUN 44 H (9-20) mg/dL Creatinine 0.57 L (0.66-1.25) mg/dL Glucose 119 H (74-99) mg/dL POC Glucose (mg/dL) 179 H (70-110) mg/dL Total Bilirubin 1.5 H (0.2-1.3) mg/dL Total Protein 4.9 L (6.3-8.2) g/dL Albumin 2.7 L (3.5-5.0) g/dL Assessment and Plan Assessment: Acute on chronic hypoxemic respiratory failure, secondary to acute exacerbation of interstitial lung disease/pulmonary fibrosis, with likely diffuse alveolar damage (DAD). History of COPD exacerbation. Flash pulmonary edema, following cardiac catheterization. Chest pain/unstable angina, status post cardiac catheterization with ballooning of the circumflex coronary artery. Status post previous CABG. History of permanent pacemaker implantation. Benign essential hypertension. Paroxysmal atrial fibrillation. History of dyslipidemia. Plan: Plan dated 07/07/2023. Currently, the patient is resting in the intensive care unit, 258. The patient's currently on AIRVO, at 60 L/m with an FiO2 of 90%. The cefepime has been discontinued, as he received appropriate treatment with this antibiotic. There is no clear evidence of infection at this time. I did have a conversation with Anna, the , about long-term care of this patient. I've asked her to start thinking about whether or not Jey would want to be on the mechanical ventilator, and would want tracheostomy and feeding tube placement, should he not be able to be weaned off. I think it would be a bad idea for the patient end up on mechanical ventilation, given his severe pulmonary fibrosis. Anyway, she'll talk to other family members about that, and get back with us. Plan dated 07/08/2023. I had a chance to speak to the , Anna yesterday, and after my conversation, they call back to the hospital, to make Kirstie DO NOT RESUSCITATE, and stated that they would not want him on mechanical ventilation. That is also what the patient wants. The patient's currently receiving appropriate medical therapy. Labs, x-rays, and medications are reviewed. I believe the patient has developed diffuse alveolar damage, with acute exacerbation of his interstitial lung disease. We will continue to follow make recommendations were appropriate. Prognosis is certainly guarded. Plan dated 07/09/2023. The patient has been made DO NOT RESUSCITATE, by the patient's , and then this morning, has been changed to comfort care. The patient is doing very poorly, and oxygenating very poorly on both and AIRVO, and a nonrebreather. I did speak to the yesterday, for some time. Unnecessary medications will be discontinued. The patient will be given some IV Ativan and IV Dilaudid, and eventually, comfort care orders will be implemented. Prognosis obviously is very poor. Additional recommendations and suggestions are forthcoming. Time with Patient: Less than 30
[2023-07-09 14:06] VITALS: BMI 22.2
[2023-07-09 14:25] VITALS: BP 97/62; PULSE 82; RESP 16; TEMP 98.2
[2023-07-09] MEDS: LORazepam 2 MG/ML INJ IV PRN (14:28)
--- NOTE | 2023-07-09 18:08 | P.DS ---
Providers Date of admission: 06/24/23 13:32 Expected date of discharge: 07/09/23 Attending physician: Jeet Hewitt Consults: 06/24/23 13:31 Consult Physician Routine Consulting Provider: Rodolfo Fonseca Consult Reason/Comments: Pulmonary fibrosis, pneumonia Do you want consulting provider notified?: Yes 06/24/23 21:45 Consult Physician Routine Consulting Provider: Rey Alvarez Consult Reason/Comments: CAD Do you want consulting provider notified?: Yes 06/29/23 18:21 Consult Physician Urgent Consulting Provider: Robbin Sinclair Consult Reason/Comments: chest pain Do you want consulting provider notified?: Already Contacted 07/02/23 12:10 Consult Physician Routine Consulting Provider: [facility] Consult Reason/Comments: Post Interventional Patient Do you want consulting provider notified?: Already Contacted Primary care physician: Emilia Bob [facility] Course: Chief Complaint: Short of breath This is a pleasant 72-year-old, follows with Dr. Emilia Bob. 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 [employer] Dr. Farias. Normally uses 2 L of oxygen at night. Sometimes excessive activity in the daytime. About a week ago patient developed 40 to describe neck: Neck symptoms the runny nose. Subsequently's been noticing that is getting increasingly short of breath example going up the stairs. And oxygen pulse ox dropped down to 70-82%. No cough. No fever no chills. Just tired. Negative self COVID negative test. Patient had 3 bouts of COVID 19 2020. Patient at that time and received BAM. June 25: Up in a chair. at the bedside. Did desaturate going to the bathroom. Changed to Perforomist and nebulized steroids. IV steroids to continue. Follow with pulmonary. Discussed. Seen by cardiology. Increased Imdur. Added Ranexa. June 30: I resumed care of the patient today. Up in a chair. He does some chest pain yesterday resolved by nitro.. Seen by cardiology. Plan for cardiac catheterization. at the bedside. July 01: Cardiac catheterization postponed for tomorrow. Does get tired with activity. Discussed with patient daughter the bedside. On IV heparin. July 02: Patient underwent cardiac catheterization Dr. LIDIA aFlk today. RCA is totally occluded. Circumflex and the distal portion beyond the stented segment 70-80% stenosis. Diffuse disease in LAD. Vein graft to the obtuse marginal occluded. And vein graft to PLV branch of the circumflex is patent. Multiple areas of narrowing 40%. Patient underwent angioplasty. It was felt by the lease operator that stent could not be appropriate in the anatomical findings. Patient return to the floor. Postprocedure shortness of breath. Placed on a BiPAP. July 03: Remains on BiPAP. Short of breath. Getting IV Lasix. Also continues steroids. Discussed with patient and Dr. Harris. Follow with cardiology. July 04: Patient remains clinically short of breath. On BiPAP. 70-80%. We'll try him to feed with a straw. Tired. Left arm swelling noted. Doppler ultrasound was negative for DVT. We'll consult vascular. No pain. Has been present for about 2-3 weeks he states.Chest x-ray film personally reviewed by me-coarse infiltrates July 05: Patient moved to the ICU because of increasing shortness of breath. On BiPAP. 90%. Tired. Discussed with and son at the bedside. Remains on bronchodilators. IV steroids. IV cefepime. IV Lasix. Some oral intake with straw, Ensure. Patient seen by vascular Dr. Gardner from left extremity swelling. Keep arm elevated. No DVT. No further vascular intervention. July 06: Remains on BiPAP. 12/6/70%. Tired. Lethargic. Arousable. No fever. IV cefepime.. IV Solu-Medrol. IV Lasix. We'll consult dietitian for TPN and lipids. July 07: ICU. Today patient is paced on AIRVO. 60/92%. This morning it got into atrial fibrillation rapid ventricular rate. Given Lopressor. Back in sinus rhythm. Did tolerate some diet. I saw the patient this afternoon. Later the nurse called me the evening that patient family at, and patient was made DO NOT RESUSCITATE. Spoke to the dietitian. Oral intake encouraged. July 08: ICU. On AIRVO. 60/92%. Family at the bedside. Pain better. Eating slowly. Remains in sinus rhythm. No chest pain. July 09: ICU. Patient and family decided to de-escalate care. Want to proceed with with comfort measures. Several family members are coming in. Hospice is being consulted. Patient is able to answer questions. Short of breath. Patient is requesting some beer. I will allow that. Spoke to the nurse. Patient later this afternoon is being switched over to GIP/inpatient hospice Current medications reviewed Past medical history to include: Atrial fibrillation, CAD, COPD, GERD, hyperlipidemia, hypertension, osteoarthritis, COVID 19, bradycardia with pacemaker, lumbar disc disorder, ventral hernia, pulmonary fibrosis, nocturnal oxygen, CAD with stent and coronary bypass in 2004 Social history: . 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 Smoked for about 48 years since the age of 17 stopped in 2016. Alcohol rarely. Physical examination: VITAL SIGNS: 98.2, 82, 16, 97/62, GENERAL: Laying in bed, tired, short of breath, awake EYES: Pupils equal. Conjunctiva normal. HEENT: External appearance of nose and ears normal, oral cavity grossly normal. NECK: JVD not raised; masses not palpable. HEART: First and second heart sounds are normal; no edema. LUNGS: Respiratory rate increased; decreased breath sound some crackles. Not able to speak in full sentences . ABDOMEN: Soft, nontender, liver spleen not palpable, no masses palpable. PSYCH: Awake, tired, answering questions MUSCULOSKELETAL:No Clubbing/cyanosis;muscles-grossly intact. OA INVESTIGATIONS, reviewed in the clinical context: July 09: White count 35.4 hemoglobin 9.5 potassium 4.5 crit 0.57 July 08: White count 32.5 hemoglobin 9.9 potassium 4.6 creatinine 0.58 July 07: White count 14 hemoglobin 10.4 platelets 249 potassium 4.5 creatinine 0.59 July 04: Procalcitonin 0.11 Doppler ultrasound left upper extremity [July 04]: Negative for DVT June 30: White count 22.8 hemoglobin 13.8 potassium 3.7 creatinine 0.8 Chest CTA: Pleural calcifications. No pulmonary embolism. 2-D echocardiogram: Hypokinetic inferior wall. Mild to moderate mitral regurgitation, pulmonic regurgitation 5%. Troponin I less than 0.012 Procalcitonin 0.06. Urine Legionella antigen: Negative White count 11.0 hemoglobin 15.2 platelets 250 potassium 4.1 BUN 11 creatinine 0.67 ProBNP 755 Troponin I 0.015 Influenza type A, B, RSV, COVID-19 PCR: Noninjected EKG tracing personally reviewed by me-no sinus rhythm. Nonspecific ST-T wave changes. Chest x-ray film personally reviewed by me-hyperinflation. Some basal chronic changes. Pacemaker. Assessment plan: -Acute shortness of breath or loss for 5 days with increasing hypoxia. Patient had cold-like symptoms about a week ago. Finding is started having increasing shortness of breath and hypoxia with activity. likely a combination of exacerbation of pulmonary fibrosis and COPD. Cardiac ischemia .: Slow to respond -Angioplasty to circumflex -Anterior chest wall pain with inferior wall hypokinesis on 2-D echo.: Unstable angina Negative troponin. Cardiac catheterization -RCA is totally occluded. Circumflex and the distal portion beyond the stented segment 70-80% stenosis. Diffuse disease in LAD. Vein graft to the obtuse marginal occluded. And vein graft to PLV branch of the circumflex is patent. Multiple areas of narrowing 40%. Patient underwent angioplasty. It was felt by the lease operator that stent could not be appropriate in the anatomical findings. Angioplasty to the circumflex carried out -Probable superimposed pneumonia IV cefepime-discontinued -IV heparin monitoring-discontinued -Acute on chronic hypoxic respiratory failure, multifactorial: Slow to respond AIRVO 60/92 -Acute metabolic encephalopathy: multifactorial -Acute COPD exacerbation, and a previous smoker: Slow to respond DuoNeb. IV Solu-Medrol 60 mg every 6 -Chronic pulmonary fibrosis possibly acute exacerbation of symptoms precipitated by viral infection IV Solu-Medrol 60 mg every 6 -Coronary artery disease prior history of coronary bypass and stent Imdur 60 mg a day. Ranexa 500 mg twice daily -Essential hypertension Metoprolol 50 mg twice a day, Zestril 2.5 mg daily at bedtime, Imdur 30 mg a day -Depression otherwise specified Wellbutrin SR 150 mg twice a day -Paroxysmal atrial fibrillation, currently sinus rhythm Xarelto, Lopressor -DO NOT RESUSCITATE Plan is to proceed with comfort care. Discussed with patient, , nurse, hospice team. Advance care planning: Discussed with the patient, the other family members present. We will use morphine, Xanax, scopolamine patch as needed. Need for morphine drip discussed. Patient still able to communicate well. Understands end-of-life. Hospice is being consulted.. Put the patient to P. Questions answered. Time spent for this about 25 minutes. Disposition: GIP/inpatient hospice with [facility] Plan - Discharge Summary Discharge Rx Participant: No New Discharge Prescriptions: Continue Rivaroxaban [Xarelto] 15 mg PO W/SUPPER Atorvastatin [Lipitor] 40 mg PO HS Clopidogrel [Plavix] 75 mg PO DAILY #90 No Action Gabapentin [Neurontin] 300 mg PO BID Ferrous Sulfate [Iron (65 MG Elemental)] 325 mg PO DAILY polyethylene glycoL 3350 [Miralax] 17 gm PO HS PRN PRN Reason: Constipation Acetaminophen Tab [Tylenol] 650 mg PO Q6H PRN PRN Reason: Pain predniSONE 5 mg PO DAILY Ipratropium-Albuterol Nebulize [Duoneb 0.5 mg-3 mg/3 ml Soln] 3 ml INHALATION RT-QID PRN PRN Reason: Shortness Of Breath Budesonide/Formoterol Fumarate [Symbicort 160-4.5 Mcg Inhaler] 2 puff INHALATION RT-BID Albuterol Inhaler [Ventolin Hfa Inhaler] 1 - 2 puff INHALATION RT-QID PRN PRN Reason: Shortness Of Breath buPROPion HCL [Wellbutrin SR] 150 mg PO BID Pantoprazole Sodium [Protonix] 40 mg PO DAILY lisinopriL [Zestril] 2.5 mg PO HS Isosorbide Mononitrate ER [Imdur] 30 mg PO DAILY@1200 Nitroglycerin Sl Tabs [Nitrostat] 0.4 mg SUBLINGUAL Q5M PRN PRN Reason: Chest Pain Nintedanib Esylate [Ofev] 150 mg PO BID Loratadine [Claritin] 10 mg PO DAILY PRN PRN Reason: Allergy Symptoms Metoprolol Tartrate [Lopressor] 50 mg PO BID Fluticasone Nasal [place] [Flonase Nasal [place]] 2 spray EA NOSTRIL DAILY Zinc 50 mg PO DAILY Discharge Medication List Gabapentin [Neurontin] 300 mg PO BID 10/08/14 [History] Ferrous Sulfate [Iron (65 MG Elemental)] 325 mg PO DAILY 09/03/16 [History] polyethylene glycoL 3350 [Miralax] 17 gm PO HS PRN 10/30/16 [History] Acetaminophen Tab [Tylenol] 650 mg PO Q6H PRN 07/19/18 [History] Albuterol Inhaler [Ventolin Hfa Inhaler] 1 - 2 puff INHALATION RT-QID PRN 07/19/18 [History] Budesonide/Formoterol Fumarate [Symbicort 160-4.5 Mcg Inhaler] 2 puff INHALATION RT-BID 07/19/18 [History] Ipratropium-Albuterol Nebulize [Duoneb 0.5 mg-3 mg/3 ml Soln] 3 ml INHALATION RT-QID PRN 07/19/18 [History] Rivaroxaban [Xarelto] 15 mg PO W/SUPPER 07/19/18 [History] buPROPion HCL [Wellbutrin SR] 150 mg PO BID 07/19/18 [History] predniSONE 5 mg PO DAILY 07/19/18 [History] Pantoprazole Sodium [Protonix] 40 mg PO DAILY 08/19/18 [History] lisinopriL [Zestril] 2.5 mg PO HS 08/19/18 [History] Isosorbide Mononitrate ER [Imdur] 30 mg PO DAILY@1200 10/19/18 [History] Atorvastatin [Lipitor] 40 mg PO HS 11/19/21 [History] Fluticasone Nasal [place] [Flonase Nasal [place]] 2 spray EA NOSTRIL DAILY 11/19/21 [History] Metoprolol Tartrate [Lopressor] 50 mg PO BID 11/19/21 [History] Nitroglycerin Sl Tabs [Nitrostat] 0.4 mg SUBLINGUAL Q5M PRN 11/19/21 [History] Zinc 50 mg PO DAILY 11/19/21 [History] Loratadine [Claritin] 10 mg PO DAILY PRN 06/24/23 [History] Nintedanib Esylate [Ofev] 150 mg PO BID 06/24/23 [History] Clopidogrel [Plavix] 75 mg PO DAILY #90 07/02/23 [Rx] Follow up Appointment(s)/Referral(s): Cris Falk MD [STAFF PHYSICIAN] - 2 Weeks (07/15 ) Emilia Bob DO [Primary Care Provider] - 1-2 days Patient Instructions/Handouts: Ranolazine (By mouth) Activity/Diet/Wound Care/Special Instructions: Stop Plavix in one week Discharge Disposition: DISCH TO [facility]
== END 2023-07-09 15:08 | disposition hospice, inpatient (51) | DRG 981 ==
LOC: EC 11:03 → 5NMEDONC 13:32 → 3SCARD 06-30 16:25 → 2SICU 07-05 11:18
PROVIDERS: ADMIT Hospitalist; ATTEND Hospitalist
PROC: 02703ZZ Dilation of Coronary Artery, One Artery, Percutaneous Approach (ICD-10-PCS; principal; 2023-07-02 10:30)
PROC: B2181ZZ Fluoroscopy of Left Internal Mammary Bypass Graft using Low Osmolar Contrast (ICD-10-PCS; principal; 2023-07-02 10:30)
PROC: B2131ZZ Fluoroscopy of Multiple Coronary Artery Bypass Grafts using Low Osmolar Contrast (ICD-10-PCS; principal; 2023-07-02 10:30)
PROC: B2111ZZ Fluoroscopy of Multiple Coronary Arteries using Low Osmolar Contrast (ICD-10-PCS; principal; 2023-07-02 10:30)
PROC: 4A023N7 Measurement of Cardiac Sampling and Pressure, Left Heart, Percutaneous Approach (ICD-10-PCS; principal; 2023-07-02 10:30)
PROC: B2151ZZ Fluoroscopy of Left Heart using Low Osmolar Contrast (ICD-10-PCS; principal; 2023-07-02 10:30)
PROC: 5A09357 Assistance with Respiratory Ventilation, Less than 24 Consecutive Hours, Continuous Positive Airway Pressure (ICD-10-PCS; 2023-07-02 10:30)
DX: J44.1 Chronic obstructive pulmonary disease with (acute) exacerbation (principal); G93.41 Metabolic encephalopathy; J15.69 Pneumonia due to other Gram-negative bacteria; J96.21 Acute and chronic respiratory failure with hypoxia; J81.0 Acute pulmonary edema; I25.110 Atherosclerotic heart disease of native coronary artery with unstable angina pectoris; I25.710 Atherosclerosis of autologous vein coronary artery bypass graft(s) with unstable angina pectoris; I49.5 Sick sinus syndrome; I27.20 Pulmonary hypertension, unspecified; J84.112 Idiopathic pulmonary fibrosis; I95.9 Hypotension, unspecified; I25.82 Chronic total occlusion of coronary artery; I48.0 Paroxysmal atrial fibrillation; J44.0 Chronic obstructive pulmonary disease with (acute) lower respiratory infection; Z66 Do not resuscitate; Z51.5 Encounter for palliative care; Z20.822 Contact with and (suspected) exposure to COVID-19; I25.84 Coronary atherosclerosis due to calcified coronary lesion; I10 Essential (primary) hypertension; E78.00 Pure hypercholesterolemia, unspecified; I08.1 Rheumatic disorders of both mitral and tricuspid valves; I45.10 Unspecified right bundle-branch block; F32.A Depression, unspecified; K43.9 Ventral hernia without obstruction or gangrene; K44.9 Diaphragmatic hernia without obstruction or gangrene; K21.9 Gastro-esophageal reflux disease without esophagitis; I25.2 Old myocardial infarction; G47.00 Insomnia, unspecified; F41.9 Anxiety disorder, unspecified; K59.00 Constipation, unspecified; M51.9 Unspecified thoracic, thoracolumbar and lumbosacral intervertebral disc disorder; M19.90 Unspecified osteoarthritis, unspecified site; Z79.51 Long term (current) use of inhaled steroids; Z79.02 Long term (current) use of antithrombotics/antiplatelets; Z79.52 Long term (current) use of systemic steroids; Z79.01 Long term (current) use of anticoagulants; Z79.899 Other long term (current) drug therapy; Z87.891 Personal history of nicotine dependence; Z95.5 Presence of coronary angioplasty implant and graft; Z95.1 Presence of aortocoronary bypass graft; Z99.81 Dependence on supplemental oxygen; Z95.0 Presence of cardiac pacemaker; Z86.16 Personal history of COVID-19; Z71.3 Dietary counseling and surveillance; Z88.6 Allergy status to analgesic agent
CPT/HCPCS: 36415; 71045; 71046; 71275; 80048; 80053; 82553; 83605; 83880; 84145; 84484; 85025; 85379; 85610; 85730; 87040; 87070; 87205; 87449; 87636; 92920; 93005; 93306; 93308; 93459; 94640; 94660; 94760; 96365; 96375; 99285

== ENCOUNTER 2023-07-09 11:32 | Inpatient (IN) | payer MEDICAID ==
[2023-07-09] MEDS ORDERED: ONDANSETRON 4 MG/2 ML VIAL IVP PRN (14:56)
[2023-07-09] MEDS ORDERED: GLYCOPYRROLATE 0.2 MG/ML 2 ML VIAL IVP PRN (14:56)
[2023-07-09] MEDS ORDERED: ATROPINE OPHTH SOLN 1% 5ML BTL SUBLINGUAL PRN (14:56)
[2023-07-09] MEDS ORDERED: MORPHINE SULFATE (100 MG/2 ML) 100 MG in SODIUM CHLORIDE 0.9% 100 ML IV PRN (14:58)
[2023-07-09] MEDS ORDERED: SCOPOLAMINE 1 MG/72 HR PATCH TRANSDERM SCH (15:00)
[2023-07-09] MEDS: LORazepam 2 MG/ML INJ IV PRN ×2 (16:58→21:26)
[2023-07-09] MEDS: MORPHINE SULFATE 2 MG/ML SYRINGE IV PRN ×2 (17:26→21:54)
[2023-07-10] MEDS: LORazepam 2 MG/ML INJ IV PRN ×3 (08:00→14:14)
[2023-07-10] MEDS: MORPHINE SULFATE 2 MG/ML SYRINGE IV PRN (10:11)
[2023-07-10 12:00] VITALS: RESP 30
--- NOTE | 2023-07-10 21:28 | P.HPIM ---
History of Present Illness H&P Date: 07/10/23 Chief Complaint: Short of breath Patient's admitted to comfort care yesterday under GIP. [facility]. Today patient is awake. Tired. Able to answer simple questions. Then dozes off. Several family members at the bedside. On exam: Gen.: Laying in bed. Tired. Lethargic. Respiratory: Rate increased, crackles Psychiatry: Anxious, answering simple questions Assessment and plan: -End-stage pulmonary fibrosis -Acute on chronic respiratory failure progressive -CAD End-of-life care. Comfort measures. Morphine. Xanax. Scopolamine patch. Care was discussed the patient and family members at the bedside. Questions answered. GIP to continue for comfort measures. Past Medical History Past Medical History: Atrial Fibrillation, Coronary Artery Disease (CAD), COPD, GERD/Reflux, Hyperlipidemia, Hypertension, Musculoskeletal Disorder, Osteoarthritis (OA), Pneumonia, Respiratory Disorder Additional Past Medical History / Comment(s): Hx Covid 04/2021 with antibody treatment, Bradycardia with pacemaker, lumbar disc disorder, small hiatal hernia, ventral hernia, hx anemia, hx hemmorrhoids with bleeding, pulmonary fibrosis dx in 2021, home oxygen History of Any Multi-Drug Resistant Organisms: None Reported Past Surgical History: Coronary Bypass/CABG, Heart Catheterization, Heart Catheterization With Stent, Hernia Repair, Orthopedic Surgery, Pacemaker Additional Past Surgical History / Comment(s): Vasectomy, 3 vessel CABG 2004, BILATERAL CATARACT, VASECTOMY, BONE INFUSION MIDDLE LEFT FINGER CRUSHING INJURY, right knee arthroscopy, [employer] pacemaker placed 11/04/16, 3 stents to Circ 12/16/16, ventricular lead replacement 08/21/2018, hematoma evacuation from pacemaker site 08/23/2018. Past Anesthesia/Blood Transfusion Reactions: No Reported Reaction Date of Last Stent Placement:: 12/16/16 Type of Cardiac Device: Permanent Pacemaker Device Placement Date:: 11/04/16 Past Psychological History: No Psychological Hx Reported Additional Psychological History / Comment(s): Pt resides with his spouse. 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 He has a nebulizer. Has oxygen at home. Still drives. Smoking Status: Former smoker Past Alcohol Use History: Rare Additional Past Alcohol Use History / Comment(s): Quit smoking 7--16, smoked since age 17. Past Drug Use History: None Reported - Past Family History Father Family Medical History: Cancer Additional Family Medical History / Comment(s): . Mother Family Medical History: Coronary Artery Disease (CAD) Additional Family Medical History / Comment(s): HEART PROBLEMS. Sister(s) Family Medical History: Cancer Additional Family Medical History / Comment(s): Lymph nodes. Brother(s) Family Medical History: Cancer Medications and Allergies Home Medications Medication Instructions Recorded Confirmed Type Gabapentin [Neurontin] 300 mg PO BID 10/08/14 07/09/23 History Ferrous Sulfate [Iron (65 MG 325 mg PO DAILY 09/03/16 07/09/23 History Elemental)] polyethylene glycoL 3350 [Miralax] 17 gm PO HS PRN 10/30/16 07/09/23 History Acetaminophen Tab [Tylenol] 650 mg PO Q6H PRN 07/19/18 07/09/23 History Albuterol Inhaler [Ventolin Hfa 1 - 2 puff INHALATION RT-QID PRN 07/19/18 07/09/23 History Inhaler] Budesonide/Formoterol Fumarate 2 puff INHALATION RT-BID 07/19/18 07/09/23 History [Symbicort 160-4.5 Mcg Inhaler] Ipratropium-Albuterol Nebulize 3 ml INHALATION RT-QID PRN 07/19/18 07/09/23 History [Duoneb 0.5 mg-3 mg/3 ml Soln] Rivaroxaban [Xarelto] 15 mg PO W/SUPPER 07/19/18 07/09/23 History buPROPion HCL [Wellbutrin SR] 150 mg PO BID 07/19/18 07/09/23 History predniSONE 5 mg PO DAILY 07/19/18 07/09/23 History Pantoprazole Sodium [Protonix] 40 mg PO DAILY 08/19/18 07/09/23 History lisinopriL [Zestril] 2.5 mg PO HS 08/19/18 07/09/23 History Isosorbide Mononitrate ER [Imdur] 30 mg PO DAILY@1200 10/19/18 07/09/23 History Atorvastatin [Lipitor] 40 mg PO HS 11/19/21 07/09/23 History Fluticasone Nasal [place] [Flonase 2 spray EA NOSTRIL DAILY 11/19/21 07/09/23 History Nasal [place]] Metoprolol Tartrate [Lopressor] 50 mg PO BID 11/19/21 07/09/23 History Nitroglycerin Sl Tabs [Nitrostat] 0.4 mg SUBLINGUAL Q5M PRN 11/19/21 07/09/23 History Zinc 50 mg PO DAILY 11/19/21 07/09/23 History Loratadine [Claritin] 10 mg PO DAILY PRN 06/24/23 07/09/23 History Nintedanib Esylate [Ofev] 150 mg PO BID 06/24/23 07/09/23 History Clopidogrel [Plavix] 75 mg PO DAILY #90 07/02/23 07/09/23 Rx Allergies Allergy/AdvReac Type Severity Reaction Status Date / Time ibuprofen [From Motrin IB] AdvReac CANNOT Verified 06/24/23 16:50 TAKE PER CARDIOLIGIST Physical Exam Vitals: Vital Signs Resp FiO2 07/10/23 11:58 30 H 07/10/23 10:42 92 07/10/23 07:32 92 07/10/23 04:02 92 07/10/23 00:27 92 Intake and Output 07/10/23 07/10/23 07/10/23 06:59 14:59 22:59 Intake Total 31.195 Output Total 600 Balance -600 31.195 Intake: Intake, IV Titration 31.195 Amount Morphine Sulfate (100 mg/ 31.195 2 ml) 100 mg In Sodium Chloride 0.9% 100 ml @ 1 MG/HR 1.02 mls/hr IV . Q24H PRN Rx#:[id number] Output: Urine 600 Other: Weight 63 kg
--- NOTE | 2023-07-10 21:30 | P.DS ---
Providers Date of admission: 07/09/23 15:51 Expected date of discharge: 07/10/23 Attending physician: Jeet Hewitt Primary care physician: Emilia Bob [facility] Course: Patient's admitted to comfort care yesterday under GIP. [facility] hosp[facility]. Today patient is awake. Tired. Able to answer simple questions. Then dozes off. Several family members at the bedside. Patient was under GIP care: In the [facility] Later today patient . Cause of : -End-stage pulmonary fibrosis Other medical problems -Acute on chronic respiratory failure progressive -CAD Disposition: Patient Plan - Discharge Summary New Discharge Prescriptions: No Action Gabapentin [Neurontin] 300 mg PO BID Ferrous Sulfate [Iron (65 MG Elemental)] 325 mg PO DAILY polyethylene glycoL 3350 [Miralax] 17 gm PO HS PRN PRN Reason: Constipation Acetaminophen Tab [Tylenol] 650 mg PO Q6H PRN PRN Reason: Pain predniSONE 5 mg PO DAILY Ipratropium-Albuterol Nebulize [Duoneb 0.5 mg-3 mg/3 ml Soln] 3 ml INHALATION RT-QID PRN PRN Reason: Shortness Of Breath Budesonide/Formoterol Fumarate [Symbicort 160-4.5 Mcg Inhaler] 2 puff INHALATION RT-BID Albuterol Inhaler [Ventolin Hfa Inhaler] 1 - 2 puff INHALATION RT-QID PRN PRN Reason: Shortness Of Breath buPROPion HCL [Wellbutrin SR] 150 mg PO BID Rivaroxaban [Xarelto] 15 mg PO W/SUPPER Pantoprazole Sodium [Protonix] 40 mg PO DAILY lisinopriL [Zestril] 2.5 mg PO HS Isosorbide Mononitrate ER [Imdur] 30 mg PO DAILY@1200 Nitroglycerin Sl Tabs [Nitrostat] 0.4 mg SUBLINGUAL Q5M PRN PRN Reason: Chest Pain Nintedanib Esylate [Ofev] 150 mg PO BID Loratadine [Claritin] 10 mg PO DAILY PRN PRN Reason: Allergy Symptoms Metoprolol Tartrate [Lopressor] 50 mg PO BID Atorvastatin [Lipitor] 40 mg PO HS Fluticasone Nasal [place] [Flonase Nasal [place]] 2 spray EA NOSTRIL DAILY Zinc 50 mg PO DAILY Clopidogrel [Plavix] 75 mg PO DAILY #90 Discharge Medication List Gabapentin [Neurontin] 300 mg PO BID 10/08/14 [History] Ferrous Sulfate [Iron (65 MG Elemental)] 325 mg PO DAILY 09/03/16 [History] polyethylene glycoL 3350 [Miralax] 17 gm PO HS PRN 10/30/16 [History] Acetaminophen Tab [Tylenol] 650 mg PO Q6H PRN 07/19/18 [History] Albuterol Inhaler [Ventolin Hfa Inhaler] 1 - 2 puff INHALATION RT-QID PRN 07/19/18 [History] Budesonide/Formoterol Fumarate [Symbicort 160-4.5 Mcg Inhaler] 2 puff INHALATION RT-BID 07/19/18 [History] Ipratropium-Albuterol Nebulize [Duoneb 0.5 mg-3 mg/3 ml Soln] 3 ml INHALATION RT-QID PRN 07/19/18 [History] Rivaroxaban [Xarelto] 15 mg PO W/SUPPER 07/19/18 [History] buPROPion HCL [Wellbutrin SR] 150 mg PO BID 07/19/18 [History] predniSONE 5 mg PO DAILY 07/19/18 [History] Pantoprazole Sodium [Protonix] 40 mg PO DAILY 08/19/18 [History] lisinopriL [Zestril] 2.5 mg PO HS 08/19/18 [History] Isosorbide Mononitrate ER [Imdur] 30 mg PO DAILY@1200 10/19/18 [History] Atorvastatin [Lipitor] 40 mg PO HS 11/19/21 [History] Fluticasone Nasal [place] [Flonase Nasal [place]] 2 spray EA NOSTRIL DAILY 11/19/21 [History] Metoprolol Tartrate [Lopressor] 50 mg PO BID 11/19/21 [History] Nitroglycerin Sl Tabs [Nitrostat] 0.4 mg SUBLINGUAL Q5M PRN 11/19/21 [History] Zinc 50 mg PO DAILY 11/19/21 [History] Loratadine [Claritin] 10 mg PO DAILY PRN 06/24/23 [History] Nintedanib Esylate [Ofev] 150 mg PO BID 06/24/23 [History] Clopidogrel [Plavix] 75 mg PO DAILY #90 07/02/23 [Rx] Discharge Disposition: - Preliminary Cause of Preliminary Cause of : Pulmonary fibrosis
== END 2023-07-10 18:23 | disposition expired | DRG 951 ==
LOC: 2SICU 15:51
PROVIDERS: ADMIT Hospitalist; ATTEND Hospitalist
DX: Z51.5 Encounter for palliative care (principal); J96.20 Acute and chronic respiratory failure, unspecified whether with hypoxia or hypercapnia; J84.10 Pulmonary fibrosis, unspecified; E78.5 Hyperlipidemia, unspecified; I10 Essential (primary) hypertension; I25.10 Atherosclerotic heart disease of native coronary artery without angina pectoris; I48.91 Unspecified atrial fibrillation; J44.9 Chronic obstructive pulmonary disease, unspecified; Z79.01 Long term (current) use of anticoagulants; Z79.02 Long term (current) use of antithrombotics/antiplatelets; Z79.51 Long term (current) use of inhaled steroids; Z79.899 Other long term (current) drug therapy; Z82.49 Family history of ischemic heart disease and other diseases of the circulatory system; Z86.16 Personal history of COVID-19; Z87.891 Personal history of nicotine dependence; Z95.1 Presence of aortocoronary bypass graft; Z98.42 Cataract extraction status, left eye; Z98.41 Cataract extraction status, right eye; Z96.1 Presence of intraocular lens